=== PATIENT | female | born 1960 | race Caucasian/White ===

== ENCOUNTER 2019-02-18 15:58 | Inpatient (IN) ==
--- NOTE | 2019-02-18 16:41 | Emergency Department Note ---
ED Disposition Clinical Impression: Severe sepsis CAP (community acquired pneumonia) Qualifiers: Laterality: right Lung location: middle lobe of lung Qualified Code(s): J18.1 - Lobar pneumonia, unspecified organism Disposition: Admitted As Inpatient Condition on Discharge: Serious Referrals: Provider,Referral, [Referring] - - Critical Care Critical Care Time: No Attestation: On 02/18/19, the high probability of a clinically significant, sudden or life threatening deterioration of the following system(s) required my full and direct attention, intervention and personal management. The time I documented below is in addition to time spent performing reported procedures but includes the following listed in this critical care notation. Medical Decision Making - Patel Inquiry Pt receiving controlled substance: No Vital Signs: 02/18/19 15:50 02/18/19 16:15 02/18/19 16:40 Temperature 98.3 F Temperature Source Oral Pulse Rate 84 Pulse Rate [Right Radial] 127 H 79 Respiratory Rate 18 18 Blood Pressure [Right Arm] 145/79 H 137/99 H Blood Pressure Mean [Right Arm] 101 111 Blood Pressure Source [Right Arm] Automatic Cuff Blood Pressure Position [Right Arm] Sitting Sitting 02 Sat by Pulse Oximetry 97 96 Oxygen Delivery Method Nasal Cannula Room Air Oxygen Flow Rate (LPM) 02/18/19 16:50 02/18/19 17:08 02/18/19 17:30 Temperature Temperature Source Pulse Rate 86 Pulse Rate [Right Radial] 74 74 Respiratory Rate 18 18 Blood Pressure [Right Arm] 137/99 H 137/99 H Blood Pressure Mean [Right Arm] 111 111 Blood Pressure Source [Right Arm] Automatic Cuff Blood Pressure Position [Right Arm] Supine Supine 02 Sat by Pulse Oximetry 96 96 Oxygen Delivery Method Nasal Cannula Room Air Oxygen Flow Rate (LPM) 2 - Lab Data Lab Results 02/18/19 16:29: WBC 33.5 H*, RBC 5.61 H, Hgb 16.0, Hct 50.1 H, MCV 89.3, MCH 28. 6, MCHC 32.0, RDW 12.2, Plt Count 288, MPV 8.6, Neut % (Auto) 91.2 H, Lymph % (Auto) 4.4 L, [place] % (Auto) 3.8, Eos % (Auto) 0.3, Baso % (Auto) 0.2, Neut # (Auto) 30.6 H, Lymph # (Auto) 1.5, [place] # (Auto) 1.3 H, Eos # (Auto) 0.1, Baso # (Auto) 0.1, Total Counted 100, Neutrophils % (Manual) 77 H, Band Neutrophils % 1.0, Lymphocytes % (Manual) 9 L, Monocytes % (Manual) 9, Metamyelocytes % 4.0 H, Platelet Estimate Normal, RBC Morphology Normal 02/18/19 16:29: Sodium 139, Potassium 3.3 L, Chloride 96 L, Carbon Dioxide 36 H, Anion Gap 10.3, BUN 20 H, Creatinine 0.81, Estimated Creat Clear 93, Estimated GFR 73, Est GFR ( Amer) 88, Glucose 162 H, Calcium 9.5, Total Bilirubin 0.7, AST 13 L, ALT 7 L, Alkaline Phosphatase 81, Total Protein 7.7, Albumin 2.8 L, Globulin 4.9 H, Albumin/Globulin Ratio 0.6 L 02/18/19 16:29: Lactate 2.2 H 02/18/19 16:39: Amylase 6 L, Lipase 24 L 02/18/19 17:25: Urine Color Yellow, Urine Appearance Clear, Urine pH 5.5, Ur Specific [place] >= 1.030, Urine Protein 2+, Urine Glucose (UA) Negative, Urine Ketones 1+, Urine Blood 2+, Urine Nitrate Negative, Urine Bilirubin Negative, Urine Urobilinogen 1.0, Ur Leukocyte Esterase Negative, Urine RBC Occasional, Urine WBC 3-5, Ur Squamous Epith Cells 3-5, Urine Bacteria 1+ Result diagrams: 02/18/19 16:29 02/18/19 16:29 Orders (Tests/Meds): ED MEDICATIONS Generic Name Dose Route Start Last Admin Trade Name Freq PRN Reason Stop Dose Admin Levofloxacin/Dextrose 750 mg in 150 mls @ 100 mls/hr 02/18/19 17:30 02/18/19 17:34 Levofloxacin 750mg/150ml Premix IV 02/18/19 18:59 100 mls/hr Q24H ONE Administration Protocol Discontinued Medications Generic Name Dose Route Start Last Admin Trade Name Freq PRN Reason Stop Dose Admin Albuterol/Ipratropium 3 ml 02/18/19 16:40 02/18/19 16:41 Duoneb 3ml Neb IH 02/18/19 16:41 3 ml ONCE ONE Administration Ioversol 75 ml 02/18/19 18:11 02/18/19 18:12 Rad-Optiray 350 100ml Vial IV 02/18/19 18:12 75 ml ONCE ONE Administration Protocol Ondansetron HCl 4 mg 02/18/19 17:10 02/18/19 17:34 Zofran 4mg/2ml Vial IV 02/18/19 17:11 4 mg ONCE ONE Administration Sodium Chloride 1,000 ml 02/18/19 17:09 02/18/19 17:34 Sod Chlor 0.9% 1000ml Bag IV 02/18/19 17:10 1,000 ml BOLUS ONE Administration Sodium Chloride 10 ml 02/18/19 18:11 02/18/19 18:12 Rad-Saline Flush 10ml Syringe IV 02/18/19 18:12 10 ml ONCE ONE Administration ORDERS Category Date Time Status CT abdomen pelvis w con Stat Cat Scan 02/18/19 17:30 Taken XR chest portable Stat Exams 02/18/19 18:08 Taken Blood Culture Stat Micro 02/18/19 16:29 Received - Radiology Data #1 Image(s): Chest Image Reviewed: Yes I reviewed the patient's radiology image infiltrate RML - CT Data CT Scan: Abdomen, Pelvis Time Received: 18:[address] Reviewed: Yes: I have viewed the radiologist's interpretation Findings Narrative: CT scan interpreted by [facility] radiologist. Faxed report received and reviewed: Large areas of pneumonia in the right middle lobe and probably to a lesser extent the right lower lobe. Fatty infiltration of the liver. - Physician Consults Physician Consulted: Kota Time: 18:43 Reason -: Admission Comment/Response: Agrees to admit the patient to the hospital. We discussed the patient's clinical information, including history, exam, laboratory and radiology results and ED course. Per hospital procedure, I will write temporary bridge inpatient orders on the patient. Specific orders requested by the admitting physician: Change to Rocephin and Zithromax. Medical Decision Narrative: 6:18 PM: Discussed PCN allergy. Patient says she "passes out". She thinks she has had Keflex in the past and is pretty certain she has had Rocephin in the hospital. General Adult HPI - General Chief complaint: Nausea/Vomiting/Diarrhea Stated complaint: N/V Time Seen by Provider: 02/18/19 16:40 Mode of Arrival: EMS Limitations: No Limitations Description of Symptoms (Recalled from ER Triage Doc. by RN): PT BROUGHT IN VIA EMS WITH C/O N/V X2 DAYS. PT STATES THAT SHE IS UNABLE TO KEEP ANY ORAL INTAKE DOWN. PT DENIES DIARRHEA. PT DOES C/O RUQ PAIN BUT ADVISES THAT SHE HAS HAD HER GALLBLADDER REMOVED. - History of Present Illness HPI narrative: Arrives by ambulance. Complains of being ill for 4 days. She has intractable nausea and vomiting. Denies diarrhea. States she has had a fever of 101 degrees. Has pain in her right upper quadrant. She has had a prior cholecystectomy. She has a cough and has chronic shortness of breath due to COPD. She has rhinorrhea. She says that she has decreased urination, no dysuria. - Related Data Home Medications Medication Instructions Recorded Confirmed Furosemide [Furosemide 20mg Tab] 20 mg PO DAILY 02/18/19 02/18/19 Gabapentin [Gabapentin 400mg Cap] 400 mg PO DAILY 02/18/19 02/18/19 Ipratropium/Albuterol Sulfate 1 puff PO NEEDED PRN 02/18/19 02/18/19 [Combivent Respimat Inh] Tizanidine HCl 4 mg PO QID 02/18/19 02/18/19 Tizanidine HCl 4 mg PO QID 02/18/19 02/18/19 Allergies Allergy/AdvReac Type Severity Reaction Status Date / Time Penicillins Allergy Verified 02/18/19 15:59 [facility] History - Hepatitis A Screen Drug use history?: No High risk sexual behaviors?: No History of sexually transmitted infection?: No Currently employed?: No Childcare worker?: No Do you have indoor plumbing?: Yes Do you have electricity?: Yes Attestation statement:: This patient has been screened for Hepatitis A risk factors. I have reviewed the patient's past medical history: Yes Medical History: Denies:: Diabetes Mellitus Type 1, Diabetes Mellitus Type 2 - Social History Smoking Status: Former smoker Alcohol Intake: never Occupational Status: retired ROS Obtained: Yes All systems reviewed & no additional complaints - Constitutional Constitutional: Reports fever(s) - ENT Ears, Nose, Mouth, and Throat: Reports nasal discharge, Denies sore throat - Cardiovascular Cardiovascular: Denies chest pain - Respiratory Respiratory: Yes cough, Yes dyspnea - Gastrointestinal Gastrointestingal: Reports: abdominal pain, nausea, vomiting. Denies: diarrhea - Genitourinary Female Genitourinary: Reports difficulty voiding - Musculoskeletal Musculoskeletal: Reports back pain (low back pain) Physical Exam - General General appearance: alert, in no apparent distress - Head Head exam: atraumatic, normocephalic - Eye Eye exam: Present: normal appearance, EOMI - ENT ENT exam: Present: normal exam, normal oropharynx, mucous membranes moist - Neck Neck exam: Present: normal inspection, full ROM, trachea midline. Absent: tenderness, meningismus - Chest Chest inspection: Present: normal inspection, symmetric chest wall rise - Respiratory Respiratory exam: Present: other (decreased BS bilaterally). Absent: respiratory distress, prolonged expiratory phase - Cardiovascular Cardiovascular exam: Present: normal rhythm, tachycardia, normal heart sounds - Abdominal Exam Abdominal exam: Present: soft, tenderness, guarding, normal bowel sounds Abdominal tenderness: Present: RUQ - Extremities Exam Extremities exam: Present: normal inspection - Back Exam Back exam: Present: CVA tenderness (R) - Neurological Exam Neurological exam: Present: alert, oriented X3 - Psychiatric Psychiatric exam: Present: anxious - Skin Skin exam: Present: warm, dry. Absent: rash
[2019-02-18 16:43] LABS: Basophils # 0.1 K/mm3 (0-0.2); Basophils % 0.2 % (0.1-2.0); Eosinophils # 0.1 K/mm3 (0.0-0.4); Eosinophils % 0.3 % (0.1-12.0); Hematocrit 50.1 % (37.0-47.0); Lymphocytes # 1.5 K/mm3 (0.7-4.5); Lymphocytes % 4.4 % (10-50); Mean Corpuscular Volume 89.3 fl (81-99); Mean Platelet Volume 8.6 fl (7.4-10.4); Monocytes # 1.3 K/mm3 (0.1-1.0); Monocytes % 3.8 % (1.7-9.3); Neutrophils # 30.6 K/mm3 (1.8-7.8); Neutrophils % 91.2 % (37.0-80.0); Platelet Count 288 K/mm3 (142-424); Red Blood Count 5.61 M/mm3 (4.20-5.40); Red Cell Distribution Width 12.2 % (11.5-17.5); White Blood Count 33.5 K/mm3 (4.8-10.8)
[2019-02-18 16:58] LABS: Albumin Level 2.8 gm/dL (3.4-5.0); Albumin/Globulin Ratio 0.6 (1.1-1.8); Anion Gap 10.3 mEq/L (5-15); Bilirubin,Total 0.7 mg/dL (0.2-1.0); Calcium 9.5 mg/dL (8.5-10.1); Globulin 4.9 gm/dl (1.3-3.2); Total Protein,Serum 7.7 gm/dL (6.4-8.2)
[2019-02-18 17:10] LABS: Amylase 6 U/L (25-115)
[2019-02-18 17:29] LABS: Microscopic, Urine URINE MICROSCOPIC (MICROSCOPIC)
[2019-02-18 17:30] LABS: Appearance,Urine CLEAR (Clear); Blood, Urine 2+ (Negative); Color,Urine YELLOW (Yellow); Glucose,Urine (UA) Negative (Negative); Ketones,Urine 1+ (Negative); Leukocyte Esterase,Urine Negative (Negative); PH,Urine 5.5 (5.0-8.5); Protein,Urine 2+ (Negative); Specific Gravity, Urine >= 1.030 (1.005-1.030)
[2019-02-18 17:45] LABS: Lymphocytes % 9 % (10-50); Monocytes % 9 % (2-9); Neutrophils % 77 % (42-76); RBC Morphology Normal; Total Cells Counted 100
[2019-02-18 17:50] LABS: Bacteria,Urine 1+ /lpf; RBC,Urine Occasional #/hpf (0-3)
[2019-02-18 17:51] LABS: Bilirubin,Urine Negative (Negative)
[2019-02-18 21:31] LABS: Creatine Kinase 107 U/L (26-192)
[2019-02-19 07:11] LABS: Hematocrit 46.6 % (37.0-47.0); Lymphocytes # 1.4 K/mm3 (0.7-4.5); Lymphocytes % 5.9 % (10-50); Mean Corpuscular HGB Conc 30.3 g/dL (31.8-35.4); Mean Corpuscular Volume 91.8 fl (81-99); Monocytes # 0.9 K/mm3 (0.1-1.0); Neutrophils # 21.1 K/mm3 (1.8-7.8); Neutrophils % 90.1 % (37.0-80.0); Platelet Count 287 K/mm3 (142-424); Red Blood Count 5.07 M/mm3 (4.20-5.40); White Blood Count 23.4 K/mm3 (4.8-10.8)
[2019-02-19 07:19] LABS: Anion Gap 10.8 mEq/L (5-15); Calcium 9.3 mg/dL (8.5-10.1)
--- NOTE | 2019-02-19 07:32 | Pharmacy Consult Notes ---
[facility] Pharmacy VTE Monitoring - Patient Demographics Admission date: 02/18/19 Report Date: 02/19/19 Time: 07:32 Allergies/Adverse Reactions: Patient Allergies Penicillins Allergy (Verified 02/18/19 15:59) Height: 1.7 m Weight: 80.995 kg Patient Problems: Current Active Problems CAP (community acquired pneumonia) (Acute) Severe sepsis (Acute) - VTE Risk Labs: VTE Related Lab Results Hgb 16.0 g/dL (12.2-16.2) 02/18/19 16:29 Hct 46.6 % (37.0-47.0) 02/19/19 06:55 Plt Count 287 K/mm3 (142-424) 02/19/19 06:55 BUN 19 mg/dL (7-18) H 02/19/19 06:55 Creatinine 0.67 mg/dL (0.55-1.02) 02/19/19 06:55 Estimated Creat Clear 118 mL/min (50-200) 02/19/19 06:55 Was VTE Risk Assessment Performed: Yes VTE Score: 4 VTE Risk Level: Low Risk - Prophylaxis VTE Prophylaxis Ordered?: Yes Types of VTE Prophylaxis: TEDS Knee High Location of Applied Device: Bilateral Lower Extremeties - VTE Diagnosis Confirmed Treatment or plan recommended: Continue Current Treatment
[2019-02-19 07:34] LABS: Hemoglobin 14.1 g/dL (12.2-16.2)
--- NOTE | 2019-02-19 08:37 | History & Physical Report ---
*Admission Date: 02/18/19 <Fouzia Louis 02/19/19 08:45> *Chief complaint: vomiting, right sided abdominal pain <Fouzia Louis 02/19/19 08:45> *History of present illness: Ms. Aviles is a 58-year-old female patient of [facility] who has a history of oxygen dependent COPD, chronic back pain, and hypertension. She states she began feeling poorly on Sunday. She started vomiting and ran a fever with chills. She became more short of breath. She presented to the emergency room for evaluation and treatment and was found to have a right middle lobe and right lower lobe pneumonia. She was admitted and started on IV antibiotics, pain control, and antiemetics. She has not had any vomiting since admission but continues with some right upper abdominal and right mid back pain. She states her shortness of breath and cough are at baseline. <Fouzia Louis 02/19/19 08:45> [facility] History I have reviewed the patient's past medical history: Yes <Fouzia Louis 02/19/19 08:45> Medical History: Reports:: Chronic Obstructive Pulmonary Disease (COPD), Hypertension Denies:: Cancer, Diabetes Mellitus Type 1, Diabetes Mellitus Type 2, MRSA <Fouzia Louis 02/19/19 08:45> *Have you ever received a pneumonia vaccine?: No <Fouzia Louis 02/19/19 08:45> *Have you received a flu vaccine this season?: No <Fouzia Louis 02/19/19 08:45> Other Medical History: Reports: Other (chronic neck and back pain due to DJD/DDD) <Tim Escudero - 02/19/19 10:03> Reports: Other (chronic back pain) <Fouzia Louis 02/19/19 08:45> Laterality Cases: Bilateral: Tonsillectomy <Fouzia Louis 02/19/19 08:45> Other Surgeries: Yes: Cholecystectomy, Colonoscopy, Hysterectomy-Total, Tubal Ligation <Fouzia Louis 02/19/19 08:45> Amputation: No <Fouzia Louis 02/19/19 08:45> Fractures: Yes (Bilat pinky toes) <Fouzia Louis 02/19/19 08:45> - *Social History Educational Level: Completed GED/General Educational Development <Fouzia Louis 02/19/19 08:45> Smoking Status: Former smoker (states she quit smoking 2 months ago) <Tim Escudero 02/19/19 10:03> Current some day smoker <Fouzia Louis 02/19/19 08:45> Tobacco Type: cigarettes <Fouzia Louis 02/19/19 08:45> # Packs/Day (cigarettes): 3 <Fouzia Louis 02/19/19 08:45> #Yrs smoked (if former smoker): 44 <Fouzia Louis 02/19/19 08:45> Smoking End Date: 02/25/18 <Fouzia Louis 02/19/19 08:45> Alcohol Intake: never <Fouzia Louis 02/19/19 08:45> *Occupational Status:: disabled (due to chronic neck and back pain) <Tim Escudero 02/19/19 10:03> retired <Fouzia Louis 02/19/19 08:45> Housing: apartment <Fouzia Louis 02/19/19 08:45> Household Members: children <Fouzia Louis 02/19/19 08:45> *Travel in the last 8 weeks: None <Fouzia Louis 02/19/19 08:45> Family Hx:: Cancer (lung and pancreas) <Tim Escudero 02/19/19 10:03> Cancer <Fouzia Louis 02/19/19 08:45> Review of Systems - Constitutional Reports chills, Reports fever(s) <Fouzia Louis 02/19/19 08:45> - Eyes Denies blurry vision, Denies double vision <Fouzia Louis 02/19/19 08:45> - ENT Reports nasal congestion, Denies sore throat <Fouzia Louis 02/19/19 08:45> - *Cardiovascular Reports chest pain (right sided, pleuritic) <Tim Escudero 02/19/19 10:03> Reports chest pain (slight beginning yesterday), Reports leg swelling <Fouzia Louis 02/19/19 08:45> - *Respiratory Reports shortness of breath <Tim Escudero 02/19/19 10:03> Reports cough, Reports shortness of breath <Fouzia Louis 02/19/19 08:45> - *Gastrointestinal Reports abdominal pain <Tim Escudero 02/19/19 10:03> Reports abdominal pain (RUQ), Reports vomiting, Denies loose stools, Denies loose stools <Fouzia Louis 02/19/19 08:45> - *Genitourinary Denies difficulty urinating, Denies painful urination <Fouzia Louis 02/19/19 08:45> - *Musculoskeletal Reports joint pain, Reports back pain, Reports neck pain <Tim Escudero 02/19/19 10:03> Reports body aches, Denies joint pain <Fouzia Louis 02/19/19 08:45> - *Neurologic Reports headache(s), Reports weakness, Denies dizziness <Fouzia Louis 02/19/19 08:45> - Psychiatric Reports anxiety <Fouzia Louis 02/19/19 08:45> Meds Home Medications Medication Instructions Recorded Confirmed Type Furosemide [Furosemide 20mg Tab] 20 mg PO DAILY 02/18/19 02/18/19 History Gabapentin [Gabapentin 400mg Cap] 400 mg PO QID 02/18/19 02/19/19 History Ipratropium/Albuterol Sulfate 1 puff PO QID 02/18/19 02/19/19 History [Combivent Respimat Inh] Tizanidine HCl 4 - 8 mg PO QID 02/18/19 02/19/19 History Lisinopril [Lisinopril 10mg Tab] 10 mg PO DAILY 02/19/19 02/19/19 History Potassium Chloride [Micro-K 10mEq 10 meq PO DAILY 02/19/19 02/19/19 History cap] <Tim Escudero 02/19/19 10:03> Allergies Allergy/AdvReac Type Severity Reaction Status Date / Time Penicillins Allergy Verified 02/18/19 15:59 <Tim Escudero - 02/19/19 10:03> Exam Vital signs and Labs for Last 24 Hours: Temp Pulse Resp BP Pulse Ox 97.9 F 89 17 95/52 L 97 02/19/19 08:00 02/19/19 08:00 02/19/19 08:00 02/19/19 08:00 02/19/19 08:00 Laboratory Results - last 24 hr 02/18/19 16:29: WBC 33.5 H*, RBC 5.61 H, Hgb 16.0, Hct 50.1 H, MCV 89.3, MCH 28.6, MCHC 32.0, RDW 12.2, Plt Count 288, MPV 8.6, Neut % (Auto) 91.2 H, Lymph % (Auto) 4.4 L, [place] % (Auto) 3.8, Eos % (Auto) 0.3, Baso % (Auto) 0.2, Neut # (Auto) 30.6 H, Lymph # (Auto) 1.5, [place] # (Auto) 1.3 H, Eos # (Auto) 0.1, Baso # (Auto) 0.1, Total Counted 100, Neutrophils % (Manual) 77 H, Band Neutrophils % 1.0, Lymphocytes % (Manual) 9 L, Monocytes % (Manual) 9, Metamyelocytes % 4.0 H, Platelet Estimate Normal, RBC Morphology Normal 02/18/19 16:29: Sodium 139, Potassium 3.3 L, Chloride 96 L, Carbon Dioxide 36 H, Anion Gap 10.3, BUN 20 H, Creatinine 0.81, Estimated Creat Clear 93, Estimated GFR 73, Est GFR ( Amer) 88, Glucose 162 H, Calcium 9.5, Total Bilirubin 0.7, AST 13 L, ALT 7 L, Alkaline Phosphatase 81, Total Protein 7.7, Albumin 2.8 L, Globulin 4.9 H, Albumin/Globulin Ratio 0.6 L 02/18/19 16:29: Lactate 2.2 H 02/18/19 16:39: Amylase 6 L, Lipase 24 L 02/18/19 17:25: Urine Color Yellow, Urine Appearance Clear, Urine pH 5.5, Ur Specific Morris >= 1.030, Urine Protein 2+, Urine Glucose (UA) Negative, Urine Ketones 1+, Urine Blood 2+, Urine Nitrate Negative, Urine Bilirubin Negative, Urine Urobilinogen 1.0, Ur Leukocyte Esterase Negative, Urine RBC Occasional, Urine WBC 3-5, Ur Squamous Epith Cells 3-5, Urine Bacteria 1+ 02/18/19 20:49: Total Creatine Kinase 107, CK-MB (CK-2) 2.0, CK-MB (CK-2) Rel Index 1.9, Troponin I < 0.02 02/18/19 20:49: Lactate 1.8 02/19/19 06:55: WBC 23.4 H* D, RBC 5.07, Hgb 14.1 D, Hct 46.6, MCV 91.8, MCH 27.8, MCHC 30.3 L, RDW 13.0, Plt Count 287, MPV 9.0, Neut % (Auto) 90.1 H, Lymph % (Auto) 5.9 L, [place] % (Auto) 4.0, Eos % (Auto) 0.0 L, Baso % (Auto) 0.0 L, Neut # (Auto) 21.1 H, Lymph # (Auto) 1.4, [place] # (Auto) 0.9, Eos # (Auto) 0.0, Baso # (Auto) 0.0, Total Counted 100, Neutrophils % (Manual) 90 H, Band Neutrophils % 1.0, Lymphocytes % (Manual) 6 L, Monocytes % (Manual) 2, Metamyelocytes % 1.0, Platelet Estimate Normal, RBC Morphology Not Reportable, Hypochromasia 1+ 02/19/19 06:55: Sodium 139, Potassium 3.8, Chloride 99, Carbon Dioxide 33 H, Anion Gap 10.8, BUN 19 H, Creatinine 0.67, Estimated Creat Clear 118, Estimated GFR 91, Est GFR ( Amer) 110 D, Glucose 180 H, Calcium 9.3 <Tim Escudero - 02/19/19 10:03> Temp Pulse Resp BP Pulse Ox 97.7 F 68 20 104/50 L 91 L 02/19/19 04:00 02/19/19 05:57 02/19/19 04:00 02/19/19 04:00 02/19/19 05:57 Laboratory Results - last 24 hr 02/18/19 16:29: WBC 33.5 H*, RBC 5.61 H, Hgb 16.0, Hct 50.1 H, MCV 89.3, MCH 28.6, MCHC 32.0, RDW 12.2, Plt Count 288, MPV 8.6, Neut % (Auto) 91.2 H, Lymph % (Auto) 4.4 L, [place] % (Auto) 3.8, Eos % (Auto) 0.3, Baso % (Auto) 0.2, Neut # (Auto) 30.6 H, Lymph # (Auto) 1.5, [place] # (Auto) 1.3 H, Eos # (Auto) 0.1, Baso # (Auto) 0.1, Total Counted 100, Neutrophils % (Manual) 77 H, Band Neutrophils % 1.0, Lymphocytes % (Manual) 9 L, Monocytes % (Manual) 9, Metamyelocytes % 4.0 H, Platelet Estimate Normal, RBC Morphology Normal 02/18/19 16:29: Sodium 139, Potassium 3.3 L, Chloride 96 L, Carbon Dioxide 36 H, Anion Gap 10.3, BUN 20 H, Creatinine 0.81, Estimated Creat Clear 93, Estimated GFR 73, Est GFR ( Amer) 88, Glucose 162 H, Calcium 9.5, Total Bilirubin 0.7, AST 13 L, ALT 7 L, Alkaline Phosphatase 81, Total Protein 7.7, Albumin 2.8 L, Globulin 4.9 H, Albumin/Globulin Ratio 0.6 L 02/18/19 16:29: Lactate 2.2 H 02/18/19 16:39: Amylase 6 L, Lipase 24 L 02/18/19 17:25: Urine Color Yellow, Urine Appearance Clear, Urine pH 5.5, Ur Specific [place] >= 1.030, Urine Protein 2+, Urine Glucose (UA) Negative, Urine Ketones 1+, Urine Blood 2+, Urine Nitrate Negative, Urine Bilirubin Negative, Urine Urobilinogen 1.0, Ur Leukocyte Esterase Negative, Urine RBC Occasional, Urine WBC 3-5, Ur Squamous Epith Cells 3-5, Urine Bacteria 1+ 02/18/19 20:49: Total Creatine Kinase 107, CK-MB (CK-2) 2.0, CK-MB (CK-2) Rel Index 1.9, Troponin I < 0.02 02/18/19 20:49: Lactate 1.8 02/19/19 06:55: WBC 23.4 H* D, RBC 5.07, Hgb 14.1 D, Hct 46.6, MCV 91.8, MCH 27.8, MCHC 30.3 L, RDW 13.0, Plt Count 287, MPV 9.0, Neut % (Auto) 90.1 H, Lymph % (Auto) 5.9 L, [place] % (Auto) 4.0, Eos % (Auto) 0.0 L, Baso % (Auto) 0.0 L, Neut # (Auto) 21.1 H, Lymph # (Auto) 1.4, [place] # (Auto) 0.9, Eos # (Auto) 0.0, Baso # (Auto) 0.0 02/19/19 06:55: Sodium 139, Potassium 3.8, Chloride 99, Carbon Dioxide 33 H, Anion Gap 10.8, BUN 19 H, Creatinine 0.67, Estimated Creat Clear 118, Estimated GFR 91, Est GFR ( Amer) 110 D, Glucose 180 H, Calcium 9.3 <Fouzia Louis - 02/19/19 08:45> I & O for Last 24 hours: Intake & Output 02/16/19 02/17/19 02/18/19 02/19/19 11:59 11:59 11:59 11:59 Intake Total 719 / 719 Output Total 650 / 650 Balance 69 / 69 Weight 178 lb 9 oz <Tim Escudero - 02/19/19 10:03> Intake & Output 02/16/19 02/17/19 02/18/19 02/19/19 11:59 11:59 11:59 11:59 Intake Total 599 / 599 Output Total 650 / 650 Balance -51 / -51 Weight 178 lb 9 oz <Fouzia Louis - 02/19/19 08:45> - Constitutional no acute distress <Fouzia Louis 02/19/19 08:45> - *Routine HEENT Exam Head: Present: normocephalic <Fouzia Louis 02/19/19 08:45> Eye: Present: EOMI, PERRL <Fouzia Louis 02/19/19 08:45> ENT: Present: mucous membranes dry <Fouzia Louis 02/19/19 08:45> - *Routine Neck Exam Present: supple. Absent: lymphadenopathy <Fouzia Louis 02/19/19 08:45> - *Routine Respiratory Exam Present: wheezes (faint), diminished air movement <Fouzia Louis 02/19/19 08:45> - *Routine Cardiovascular Exam Present: RRR <Fouzia Louis 02/19/19 08:45> - *Routine Abdominal Exam Present: soft, normoactive bowel sounds. Absent: tenderness <Fouzia Louis 02/19/19 08:45> - *Routine Extremities Exam Present: edema (2+ bilaterally). Absent: cyanosis, clubbing <Fouzia Louis 02/19/19 08:45> - *Routine Skin Exam Present: warm. Absent: rash <Fouzia Louis 02/19/19 08:45> - *Routine Neurological Exam Present: alert, oriented X3 <Fouzia Louis 02/19/19 08:45> H&P: Result - Impressions CXR - Right lower lobe pneumonia Abd/pelvic CT 1. Right middle lobe and right lower lobe pneumonia 2. No acute abdominal or pelvic findings. <Fouzia Louis 02/19/19 08:45> Assessment and Plan (1) CAP (community acquired pneumonia) Current visit: Yes Status: Acute Qualifiers: Laterality: right Lung location: middle lobe of lung Qualified Code(s): J18.1 - Lobar pneumonia, unspecified organism Category: Medical Code(s): J18.9 - Pneumonia, unspecified organism (2) Severe sepsis Current visit: Yes Status: Acute Category: Medical Code(s): A41.9 - Sepsis, unspecified organism; R65.20 - Severe sepsis without septic shock (3) Leukocytosis Current visit: Yes Status: Acute Category: Medical Code(s): D72.829 - Elevated white blood cell count, un specified (4) Hypokalemia Current visit: Yes Status: Acute Category: Medical Code(s): E87.6 - Hypokalemia (5) Renal insufficiency Current visit: Yes Status: Acute Category: Medical Code(s): N28.9 - Disorder of kidney and ureter, unspecified (6) Hypertension Current visit: Yes Status: Chronic Category: Medical Code(s): I10 - Essential (primary) hypertension (7) COPD (chronic obstructive pulmonary disease) Current visit: Yes Status: Chronic Category: Medical Code(s): J44.9 - Chronic obstructive pulmonary disease, unspecified <Fouzia Louis - 02/19/19 08:34> (1) CAP (community acquired pneumonia) Current visit: Yes Status: Acute Qualifiers: Laterality: right Lung location: middle lobe of lung Qualified Code(s): J18.1 - Lobar pneumonia, unspecified organism Category: Medical Code(s): J18.9 - Pneumonia, unspecified organism (2) Severe sepsis Current visit: Yes Status: Acute Category: Medical Code(s): A41.9 - Sepsis, unspecified organism; R65.20 - Severe sepsis without septic shock (3) Leukocytosis Current visit: Yes Status: Acute Category: Medical Code(s): D72.829 - Elevated white blood cell count, unspecified (4) Hypokalemia Current visit: Yes Status: Acute Category: Medical Code(s): E87.6 - Hypokalemia (5) Renal insufficiency Current visit: Yes Status: Acute Category: Medical Code(s): N28.9 - Disorder of kidney and ureter, unspecified (6) Hypertension Current visit: Yes Status: Chronic Category: Medical Code(s): I10 - Essential (primary) hypertension (7) COPD (chronic obstructive pulmonary disease) Current visit: Yes Status: Chronic Category: Medical Code(s): J44.9 - Chronic obstructive pulmonary disease, unspecified (8) Hyperglycemia Current visit: Yes Status: Acute Category: Medical Code(s): R73.9 - Hyperglycemia, unspecified (9) Chronic neck pain Current visit: Yes Status: Acute Category: Medical Code(s): M54.2 - Cervicalgia; G89.29 - Other chronic pain <Tim Escudero Kai - 02/19/19 10:03> - Assessment and plan all Dx Assessment and Plan for all problems:: Patient seen and examined this a.m. She rested fairly well through the night. She is subjectively less short of breath this morning. She has a nonproductive cough. She complains of some right-sided pleuritic type chest pain. She has had no further vomiting but has no appetite this morning. Her white blood cell count has decreased some. Blood sugar is elevated which may be due to the steroids but will check an A1c. She has no history of diabetes. Blood pressure has been low this morning. We will give her another bolus of IV fluids. <Tim Escudero - 02/19/19 10:03> Patient has been started on antibiotics, nebs, and steroids. She has been continued on oxygen. Her potassium has normalized and her renal function has improved. Will await blood and sputum cultures. <Fouzia Louis - 02/19/19 08:45>
[2019-02-19 09:28] LABS: Hypochromasia 1+; Lymphocytes % 6 % (10-50); Monocytes % 2 % (2-9); Neutrophils % 90 % (42-76); Total Cells Counted 100
--- NOTE | 2019-02-19 21:05 | Cardiology Report ---
APPROVED REPORT EXAM: Comprehensive 2D, Doppler, and color-flow Echocardiogram Office Auditor: Vicki Horne CRT Ht: 5 ft 7 in Wt: 178lbs BSA: 1.92 BP: 117/70 mmHg Indications: Chest Pain, COPD, Shortness of Breath, Peripheral Edema, Hyperlipidemia, HOME O2, SEPSIS 2D Dimensions LVOT 1.90 cm (M/F) 1.5-2.5 M-Mode Dimensions RVDd 2.40 cm (0.9-2.6)LA Diam 3.40 cm (1.9-4.0) LVDd 5.30 cm (3.5-5.7)Ao Diam 3.50 cm (2.0-3.7) LVDs 2.90 cm (3.5-5.7)AV Cusp 2.10 cm (1.5-2.6) IVSd 1.50 cm (0.6-1.1)PWd 0.80 cm (0.6-1.1) EF (Teich) 76.10% FS 45.30% EDV (Teich) 135.00 mLESV (Teich) 32.20 mL LV Diastology E/A Ratio 0.90MED E' 8.19 (< 7 cm/sec) E'/MED E' Ratio11.50 (>14)LAT E' 11.70 (<10 cm/sec) E/LAT E' Ratio 8.10 (>14) Aortic Valve AoV Peak Kwasi. 169.00 (50-130 cm/s)AO Peak GR. 11.00 mmHg Mitral Valve MV E Max Kwasi. 94.30 (40-130 cm/s)MV A Velocity 106.00 (40-130 cm/s) E/A Ratio 0.90 Pulmonary Valve PA Accel Time 169.00 (>120 msec) Tricuspid Valve TR P. Pjagwrsp639.00 cm/sRAP Estimate 10.00 mmHg RVSP 43.00 mmHg Left Ventricle Left atrium is mildly enlarged, left ventricle is normal size, mild concentric left ventricular hypertrophy, visually estimated ejection fraction 55% with no regional wall motion abnormality. Grade 1 diastolic dysfunction seen without tissue Doppler evidence of raise left atrial pressure. Right Ventricle Right atrium and right ventricle mildly enlarged with normal contractility. Aortic Valve Aortic valve is minimally thickened and calcified, leaflet continue to display good mobility, there is no aortic stenosis or aortic insufficiency. Mitral Valve Mitral valve leaflets are minimally thickened, there is no mitral stenosis, there is mild mitral regurgitation. Tricuspid Valve Tricuspid valve is grossly normal, there is mild tricuspid regurgitation, tricuspid regurgitation jet velocity is inadequate for cannulation of the right ventricular systolic pressure. Pulmonic Valve Pulmonic valve is poorly visualized. Great Vessels Aortic root is normal size. Pericardium No significant pericardial effusion noted. Conclusion 1. Mild biatrial enlargement, normal left ventricular size, mild concentric left ventricular hypertrophy, visually estimated ejection fraction 55% with no regional wall motion abnormality, grade 1 diastolic dysfunction seen without tissue Doppler evidence of raise left atrial pressure. 2. Mildly enlarged right ventricle with normal contractility. 3. Mild mitral and tricuspid regurgitation, tricuspid regurgitation jet velocity is inadequate for calculation of the right ventricular systolic pressure. 4. No significant pericardial effusion noted. Electronically signed by : Shahid Rebolledo, 02/19/2019 21:05:20
--- NOTE | 2019-02-20 08:39 | Progress Note ---
<Fouzia Louis - Last Filed: 02/20/19 08:37> Internal Medicine - PN: Subj *Date: 02/20/19 *Time: 08:37 Interval history: Patient states in the middle the night she rolled over on her right side and felt like something tore in her chest wall. She states she has had significant pain ever since that time. Her nurses states she is been moaning all night. She states it hurts to take a deep breath and her cough seems to be worse. She is requesting something else for pain. Exam Vital signs and Labs for Last 24 Hours: Temp Pulse Resp BP Pulse Ox 98.2 F 85 21 110/66 98 02/20/19 04:00 02/20/19 06:20 02/20/19 08:21 02/20/19 04:00 02/20/19 06:20 Laboratory Results - last 24 hr 02/19/19 06:55: Total Counted 100, Neutrophils % (Manual) 90 H, Band Neutrophils % 1.0, Lymphocytes % (Manual) 6 L, Monocytes % (Manual) 2, Metamyelocytes % 1.0, Platelet Estimate Normal, RBC Morphology Not Reportable, Hypochromasia 1+ 02/19/19 06:55: Hemoglobin A1c 6.5 I & O for Last 24 hours: Intake & Output 02/17/19 02/18/19 02/19/19 02/20/19 11:59 11:59 11:59 11:59 Intake Total 719 / 719 240 / 240 Output Total 650 / 650 600 / 600 Balance 69 / 69 -360 / -360 Weight 178 lb 9 oz 185 lb 6 oz - Constitutional no acute distress - Routine Chest/Breast/Axilla Exam Chest wall: Present: tenderness (Right lower costal cartilage) - *Routine Respiratory Exam Present: decreased breath sounds - *Routine Cardiovascular Exam Present: RRR - *Routine Abdominal Exam Present: soft, normoactive bowel sounds. Absent: tenderness - *Routine Extremities Exam Absent: cyanosis, clubbing, edema - *Routine Skin Exam Present: warm. Absent: rash - *Routine Neurological Exam Present: alert, oriented X3 Assessment and Plan (1) CAP (community acquired pneumonia) Current visit: Yes Status: Acute Qualifiers: Laterality: right Lung location: middle lobe of lung Qualified Code(s): J18.1 - Lobar pneumonia, unspecified organism Category: Medical Code(s): J18.9 - Pneumonia, unspecified organism (2) Severe sepsis Current visit: Yes Status: Acute Category: Medical Code(s): A41.9 - Sepsis, unspecified organism; R65.20 - Severe sepsis without septic shock (3) Leukocytosis Current visit: Yes Status: Acute Category: Medical Code(s): D72.829 - Elevated white blood cell count, unspecified (4) Hypokalemia Current visit: Yes Status: Acute Category: Medical Code(s): E87.6 - Hypokalemia (5) Renal insufficiency Current visit: Yes Status: Acute Category: Medical Code(s): N28.9 - Disorder of kidney and ureter, unspecified (6) Hypertension Current visit: Yes Status: Chronic Category: Medical Code(s): I10 - Essential (primary) hypertension (7) COPD (chronic obstructive pulmonary disease) Current visit: Yes Status: Chronic Category: Medical Code(s): J44.9 - Chronic obstructive pulmonary disease, unspecified (8) Hyperglycemia Current visit: Yes Status: Acute Category: Medical Code(s): R73.9 - Hyperglycemia, unspecified (9) Chronic neck pain Current visit: Yes Status: Acute Category: Medical Code(s): M54.2 - Cervicalgia; G89.29 - Other chronic pain - Assessment and plan all Dx Assessment and Plan for all problems:: We will continue IV antibiotics. We will get a repeat chest x-ray today and will start on some Toradol for her pain. <Tim Escudero - Last Filed: 02/20/19 10:04> Internal Medicine - PN: Subj *Date: 02/20/19 *Time: 10:03 Exam Vital signs and Labs for Last 24 Hours: Temp Pulse Resp BP Pulse Ox 98.2 F 108 H 21 117/59 L 96 02/20/19 08:00 02/20/19 08:00 02/20/19 08:21 02/20/19 08:00 02/20/19 08:00 Laboratory Results - last 24 hr 02/19/19 06:55: Hemoglobin A1c 6.5 I & O for Last 24 hours: Intake & Output 02/17/19 02/18/19 02/19/19 02/20/19 11:59 11:59 11:59 11:59 Intake Total 719 / 719 360 / 360 Output Total 650 / 650 1200 / 1200 Balance 69 / 69 -840 / -840 Weight 178 lb 9 oz 185 lb 6 oz Assessment and Plan (1) CAP (community acquired pneumonia) Current visit: Yes Status: Acute Qualifiers: Laterality: right Lung location: middle lobe of lung Qualified Code(s): J18.1 - Lobar pneumonia, unspecified organism Category: Medical Code(s): J18.9 - Pneumonia, unspecified organism (2) Severe sepsis Current visit: Yes Status: Acute Category: Medical Code(s): A41.9 - Sepsis, unspecified organism; R65.20 - Severe sepsis without septic shock (3) Leukocytosis Current visit: Yes Status: Acute Category: Medical Code(s): D72.829 - Elevated white blood cell count, unspecified (4) Hypokalemia Current visit: Yes Status: Acute Category: Medical Code(s): E87.6 - Hypokalemia (5) Renal insufficiency Current visit: Yes Status: Acute Category: Medical Code(s): N28.9 - Disorder of kidney and ureter, unspecified (6) Hypertension Current visit: Yes Status: Chronic Category: Medical Code(s): I10 - Essential (primary) hypertension (7) COPD (chronic obstructive pulmonary disease) Current visit: Yes Status: Chronic Category: Medical Code(s): J44.9 - Chronic obstructive pulmonary disease, unspecified (8) Hyperglycemia Current visit: Yes Status: Acute Category: Medical Code(s): R73.9 - Hyperglycemia, unspecified (9) Chronic neck pain Current visit: Yes Status: Acute Category: Medical Code(s): M54.2 - Cervicalgia; G89.29 - Other chronic pain - Assessment and plan all Dx Assessment and Plan for all problems:: Patient seen and examined this AM. Concur with above. Awaiting sputum and blood cultures. Encourage OOB activity.
[2019-02-20 10:11] LABS: Basophils % 0.1 % (0.1-2.0); Eosinophils % 0.1 % (0.1-12.0); Hematocrit 45.5 % (37.0-47.0); Hemoglobin 13.7 g/dL (12.2-16.2); Lymphocytes # 1.1 K/mm3 (0.7-4.5); Lymphocytes % 4.6 % (10-50); Mean Corpuscular HGB Conc 30.1 g/dL (31.8-35.4); Mean Corpuscular Volume 90.1 fl (81-99); Mean Platelet Volume 8.5 fl (7.4-10.4); Monocytes % 4.2 % (1.7-9.3); Neutrophils # 21.6 K/mm3 (1.8-7.8); Platelet Count 382 K/mm3 (142-424); Red Blood Count 5.05 M/mm3 (4.20-5.40); Red Cell Distribution Width 12.9 % (11.5-17.5); White Blood Count 23.8 K/mm3 (4.8-10.8)
[2019-02-20 12:34] LABS: Hypochromasia 1+; Lymphocytes % 8 % (10-50); Monocytes % 2 % (2-9); Neutrophils % 90 % (42-76); Total Cells Counted 100
[2019-02-21 07:21] LABS: Basophils % 0.1 % (0.1-2.0); Eosinophils % 0.2 % (0.1-12.0); Hematocrit 42.1 % (37.0-47.0); Hemoglobin 12.5 g/dL (12.2-16.2); Lymphocytes # 1.2 K/mm3 (0.7-4.5); Mean Corpuscular HGB Conc 29.6 g/dL (31.8-35.4); Mean Corpuscular Volume 91.7 fl (81-99); Mean Platelet Volume 8.4 fl (7.4-10.4); Monocytes # 0.7 K/mm3 (0.1-1.0); Monocytes % 5.3 % (1.7-9.3); Neutrophils # 11.5 K/mm3 (1.8-7.8); Neutrophils % 85.4 % (37.0-80.0); Platelet Count 353 K/mm3 (142-424); Red Blood Count 4.59 M/mm3 (4.20-5.40); Red Cell Distribution Width 13.1 % (11.5-17.5); White Blood Count 13.4 K/mm3 (4.8-10.8)
[2019-02-21 07:42] LABS: Albumin Level 2.2 gm/dL (3.4-5.0); Anion Gap 6.7 mEq/L (5-15); Bilirubin,Total 0.2 mg/dL (0.2-1.0); Calcium 8.7 mg/dL (8.5-10.1); Total Protein,Serum 6.2 gm/dL (6.4-8.2)
[2019-02-21 07:43] LABS: Albumin/Globulin Ratio 0.6 (1.1-1.8)
--- NOTE | 2019-02-21 08:57 | Progress Note ---
<Bridgette Alvarado - Last Filed: 02/21/19 08:53> Internal Medicine - PN: Subj *Date: 02/21/19 *Time: 07:45 Interval history: The patient is resting quietly in bed, arouses easily to voice for exam. She has been up to the [facility] and remains SOB with any exertion. She ate well this morning and rested well overnight despite continued chest discomfort. She has NPC. Exam Vital signs and Labs for Last 24 Hours: Temp Pulse Resp BP Pulse Ox 97.9 F 104 H 20 128/61 97 02/21/19 08:00 02/21/19 08:00 02/21/19 08:00 02/21/19 08:00 02/21/19 08:00 Laboratory Results - last 24 hr 02/20/19 09:40: WBC 23.8 H*, RBC 5.05, Hgb 13.7, Hct 45.5, MCV 90.1, MCH 27.2, MCHC 30.1 L, RDW 12.9, Plt Count 382 D, MPV 8.5, Neut % (Auto) 91.0 H, Lymph % (Auto) 4.6 L, Cuming % (Auto) 4.2, Eos % (Auto) 0.1, Baso % (Auto) 0.1, Neut # (Auto) 21.6 H, Lymph # (Auto) 1.1, Cuming # (Auto) 1.0, Eos # (Auto) 0.0, Baso # (Auto) 0.0, Total Counted 100, Neutrophils % (Manual) 90 H, Lymphocytes % (Manual) 8 L, Monocytes % (Manual) 2, Platelet Estimate Normal, Hypochromasia 1+ 02/21/19 06:05: WBC 13.4 H D, RBC 4.59, Hgb 12.5, Hct 42.1, MCV 91.7, MCH 27.2, MCHC 29.6 L, RDW 13.1, Plt Count 353, MPV 8.4, Neut % (Auto) 85.4 H, Lymph % (Auto) 9.0 L, Cuming % (Auto) 5.3, Eos % (Auto) 0.2, Baso % (Auto) 0.1, Neut # (Auto) 11.5 H, Lymph # (Auto) 1.2, Cuming # (Auto) 0.7, Eos # (Auto) 0.0, Baso # (Auto) 0.0 02/21/19 06:05: Sodium 142, Potassium 3.7, Chloride 104, Carbon Dioxide 35 H, Anion Gap 6.7, BUN 12 D, Creatinine 0.52 L D, Estimated Creat Clear 165, Estimated GFR 122, Est GFR ( Amer) 147 D, Glucose 217 H, Calcium 8.7, Total Bilirubin 0.2, AST 4 L D, ALT 11 L D, Alkaline Phosphatase 59, Total P rotein 6.2 L, Albumin 2.2 L, Globulin 4.0 H, Albumin/Globulin Ratio 0.6 L I & O for Last 24 hours: Intake & Output 02/18/19 02/19/19 02/20/19 02/21/19 11:59 11:59 11:59 11:59 Intake Total 719 / 719 360 / 360 2560 / 2560 Output Total 650 / 650 1200 / 1200 400 / 400 Balance 69 / 69 -840 / -840 2160 / 2160 Weight 178 lb 9 oz 185 lb 6 oz 193 lb 8 oz Microbiology Reports for the Last 24 Hours: Microbiology 02/18/19 16:29 Blood Blood Culture - Preliminary NO GROWTH AFTER 48 HOURS 02/18/19 16:29 Blood Blood Culture - Preliminary NO GROWTH AFTER 48 HOURS Radiology Reports for the Last 24 Hours: 02/20/19 CXR: IMPRESSION: Pneumonia in the right middle and right lower lobe not significantly changed with increasing consolidation in the left lower lobe and small left pleural effusion. - Constitutional no acute distress Comments: mildly dyspneic with conversation - *Routine HEENT Exam Head: Present: normocephalic ENT: Present: mucous membranes moist - *Routine Respiratory Exam Comments: diminished breath sounds throughout with few LLL rales, frequent dry cough - *Routine Cardiovascular Exam Present: RRR - *Routine Abdominal Exam Present: soft, normoactive bowel sounds. Absent: tenderness, distended, guarding, firm, rigid, organomegaly, mass - *Routine Extremities Exam Comments: 1+ BLE edema - *Routine Neurological Exam Present: alert, oriented X3, moving all extremities, normal speech Assessment and Plan (1) CAP (community acquired pneumonia) Current visit: Yes Status: Acute Qualifiers: Laterality: right Lung location: middle lobe of lung Qualified Code(s): J18.1 - Lobar pneumonia, unspecified organism Category: Medical Code(s): J18.9 - Pneumonia, unspecified organism (2) Severe sepsis Current visit: Yes Status: Acute Category: Medical Code(s): A41.9 - Sepsis, unspecified organism; R65.20 - Severe sepsis without septic shock (3) Leukocytosis Current visit: Yes Status: Acute Category: Medical Code(s): D72.829 - Elevated white blood cell count, unspecified (4) Hypokalemia Current visit: Yes Status: Acute Category: Medical Code(s): E87.6 - Hypokalemia (5) Renal insufficiency Current visit: Yes Status: Acute Category: Medical Code(s): N28.9 - Disorder of kidney and ureter, unspecified (6) Hypertension Current visit: Yes Status: Chronic Category: Medical Code(s): I10 - Essential (primary) hypertension (7) COPD (chronic obstructive pulmonary disease) Current visit: Yes Status: Chronic Category: Medical Code(s): J44.9 - Chronic obstructive pulmonary disease, unspecified (8) Hyperglycemia Current visit: Yes Status: Acute Category: Medical Code(s): R73.9 - Hyperglycemia, unspecified (9) Chronic neck pain Current visit: Yes Status: Acute Category: Medical Code(s): M54.2 - Cervicalgia; G89.29 - Other chronic pain - Assessment and plan all Dx Assessment and Plan for all problems:: WBC has improved. CXR shows stable right lung changes with increasing consolidation of LLL. Preliminary blood cultures showed no growth at [address] Escudero. <Tim Escudero - Last Filed: 02/21/19 12:39> Internal Medicine - PN: Subj *Date: 02/21/19 *Time: 12:37 Exam Vital signs and Labs for Last 24 Hours: Temp Pulse Resp BP Pulse Ox 98.7 F 105 H 20 137/84 93 L 02/21/19 12:00 02/21/19 12:00 02/21/19 12:00 02/21/19 12:00 02/21/19 12:00 Laboratory Results - last 24 hr 02/21/19 06:05: WBC 13.4 H D, RBC 4.59, Hgb 12.5, Hct 42.1, MCV 91.7, MCH 27.2, MCHC 29.6 L, RDW 13.1, Plt Count 353, MPV 8.4, Neut % (Auto) 85.4 H, Lymph % (Auto) 9.0 L, Cuming % (Auto) 5.3, Eos % (Auto) 0.2, Baso % (Auto) 0.1, Neut # (Auto) 11.5 H, Lymph # (Auto) 1.2, Cuming # (Auto) 0.7, Eos # (Auto) 0.0, Baso # (Auto) 0.0, Total Counted 100, Neutrophils % (Manual) 84 H, Lymphocytes % (Manual) 12, Monocytes % (Manual) 4, Platelet Estimate Normal, RBC Morphology Normal, ESR 30 02/21/19 06:05: Sodium 142, Potassium 3.7, Chloride 104, Carbon Dioxide 35 H, Anion Gap 6.7, BUN 12 D, Creatinine 0.52 L D, Estimated Creat Clear 165, Estimated GFR 122, Est GFR ( Amer) 147 D, Glucose 217 H, Calcium 8.7, Total Bilirubin 0.2, AST 4 L D, ALT 11 L D, Alkaline Phosphatase 59, Total Protein 6.2 L, Albumin 2.2 L, Globulin 4.0 H, Albumin/Globulin Ratio 0.6 L I & O for Last 24 hours: Intake & Output 02/19/19 02/20/19 02/21/19 02/22/19 11:59 11:59 11:59 11:59 Intake Total 719 / 719 360 / 360 2560 / 2560 Output Total 650 / 650 1200 / 1200 400 / 400 Balance 69 / 69 -840 / -840 2160 / 2160 Weight 178 lb 9 oz 185 lb 6 oz 193 lb 8 oz Microbiology Reports for the Last 24 Hours: Microbiology 02/18/19 16:29 Blood Blood Culture - Preliminary NO GROWTH AFTER 48 HOURS 02/18/19 16:29 Blood Blood Culture - Preliminary NO GROWTH AFTER 48 HOURS Assessment and Plan (1) CAP (community acquired pneumonia) Current visit: Yes Status: Acute Qualifiers: Laterality: right Lung location: middle lobe of lung Qualified Code(s): J18.1 - Lobar pneumonia, unspecified organism Category: Medical Code(s): J18.9 - Pneumonia, unspecified organism (2) Severe sepsis Current visit: Yes Status: Acute Category: Medical Code(s): A41.9 - Sepsis, unspecified organism; R65.20 - Severe sepsis without septic shock (3) Leukocytosis Current visit: Yes Status: Acute Category: Medical Code(s): D72.829 - Elevated white blood cell count, unspecified (4) Hypokalemia Current visit: Yes Status: Acute Category: Medical Code(s): E87.6 - Hypokalemia (5) Renal insufficiency Current visit: Yes Status: Acute Category: Medical Code(s): N28.9 - Disorder of kidney and ureter, unspecified (6) Hypertension Current visit: Yes Status: Chronic Category: Medical Code(s): I10 - Essential (primary) hypertension (7) COPD (chronic obstructive pulmonary disease) Current visit: Yes Status: Chronic Category: Medical Code(s): J44.9 - Chronic obstructive pulmonary disease, unspecified (8) Hyperglycemia Current visit: Yes Status: Acute Category: Medical Code(s): R73.9 - Hyp erglycemia, unspecified (9) Chronic neck pain Current visit: Yes Status: Acute Category: Medical Code(s): M54.2 - Cervicalgia; G89.29 - Other chronic pain - Assessment and plan all Dx Assessment and Plan for all problems:: Patient seen and examined this morning. At the time of my exam she is sitting on the edge of the bed looks and feels a little better. She rested much better last night with less pleuritic pain on the right side. Repeat chest x-ray showed additional infiltrate in the left lower lobe. Her white count has markedly improved. She has still not been able to produce a sputum for culture. She is complaining of constipation. We will add Dulcolax and MiraLAX. Encourage out of bed activity. Discontinue IV fluids.
--- NOTE | 2019-02-21 09:47 | Electrocardiograph Report ---
APPROVED REPORT Exam: Resting ECG HR:127 bpm ECG Measurements Heart Rate 127 AXES CA 152 P 84 QRSd 100 QRS 99 QT 308 T53 QTc 447 <Conclusion> Sinus tachycardia Rightward axis Pulmonary disease pattern Abnormal ECG Electronically signed by : Case Barrios, 02/21/2019 09:46:58
[2019-02-21 11:24] LABS: Lymphocytes % 12 % (10-50); Monocytes % 4 % (2-9); Neutrophils % 84 % (42-76); Total Cells Counted 100
[2019-02-21 11:25] LABS: RBC Morphology Normal
[2019-02-21 11:26] LABS: Erythrocyte Sedimentation Rate 30 mm/hr (0-30)
--- NOTE | 2019-02-22 08:59 | Progress Note ---
Internal Medicine - PN: Subj *Date: 02/22/19 *Time: 08:57 Interval history: She slept fairly well. She still has some right pleuritic chest pain that is relieved with the Toradol. Appetite is improving. Nonproductive cough. She has still not had a bowel movement. She had some cramping yesterday. Exam Vital signs and Labs for Last 24 Hours: Temp Pulse Resp BP Pulse Ox 98.9 F 94 H 18 139/73 95 02/22/19 07:42 02/22/19 07:42 02/22/19 07:42 02/22/19 07:42 02/22/19 07:42 Laboratory Results - last 24 hr 02/21/19 06:05: Total Counted 100, Neutrophils % (Manual) 84 H, Lymphocytes % (Manual) 12, Monocytes % (Manual) 4, Platelet Estimate Normal, RBC Morphology Normal, ESR 30 I & O for Last 24 hours: Intake & Output 02/19/19 02/20/19 02/21/19 02/22/19 11:59 11:59 11:59 11:59 Intake Total 719 / 719 360 / 360 2560 / 2560 720 / 720 Output Total 650 / 650 1200 / 1200 400 / 400 800 / 800 Balance 69 / 69 -840 / -840 2160 / 2160 -80 / -80 Weight 178 lb 9 oz 185 lb 6 oz 193 lb 8 oz 193 lb 7.995 oz Narrative: She is sitting on the side of the bed and appears in no distress. Color is good. Chest reveals diminished breath sounds in the bases bilaterally. No wheezes. Heart is regular. Extremities no edema. Assessment and Plan (1) CAP (community acquired pneumonia) Current visit: Yes Status: Acute Qualifiers: Laterality: right Lung location: middle lobe of lung Qualified Code(s): J18.1 - Lobar pneumonia, unspecified organism Category: Medical Code(s): J18.9 - Pneumonia, unspecified organism (2) Severe sepsis Current visit: Yes Status: Acute Category: Medical Code(s): A41.9 - Sepsis, unspecified organism; R65.20 - Severe sepsis without septic shock (3) Leukocytosis Current visit: Yes Status: Acute Category: Medical Code(s): D72.829 - Elevated white blood cell count, unspecified (4) Hypokalemia Current visit: Yes Status: Acute Category: Medical Code(s): E87.6 - Hypokalemia (5) Renal insufficiency Current visit: Yes Status: Acute Category: Medical Code(s): N28.9 - Disorder of kidney and ureter, unspecified (6) Hypertension Current visit: Yes Status: Chronic Category: Medical Code(s): I10 - Essential (primary) hypertension (7) COPD (chronic obstructive pulmonary disease) Current visit: Yes Status: Chronic Category: Medical Code(s): J44.9 - Chronic obstructive pulmonary disease, unspecified (8) Hyperglycemia Current visit: Yes Status: Acute Category: Medical Code(s): R73.9 - Hyperglycemia, unspecified (9) Chronic neck pain Current visit: Yes Status: Acute Category: Medical Code(s): M54.2 - Cervicalgia; G89.29 - Other chronic pain - Assessment and plan all Dx Assessment and Plan for all problems:: Continue per orders. We will try Dulcolax suppository today. Encouraged increase activity.
--- NOTE | 2019-02-22 12:05 | Progress Note ---
Internal Medicine - PN: Subj *Date: 02/22/19 *Time: 12:05 Exam Vital signs and Labs for Last 24 Hours: Temp Pulse Resp BP Pulse Ox 98.2 F 94 H 19 141/75 H 94 L 02/22/19 11:18 02/22/19 11:18 02/22/19 11:18 02/22/19 11:18 02/22/19 11:18 I & O for Last 24 hours: Intake & Output 02/19/19 02/20/19 02/21/19 02/22/19 23:59 23:59 23:59 23:59 Intake Total 959 / 959 1801 / 1801 1239 / 1239 360 / 360 Output Total 1000 / 1000 600 / 800 400 / 400 800 / 800 Balance -41 / -41 1201 / 1001 839 / 839 -440 / -440 Weight 80.995 kg 84.085 kg 87.77 kg 87.77 kg Assessment and Plan (1) CAP (community acquired pneumonia) Current visit: Yes Status: Acute Qualifiers: Laterality: right Lung location: middle lobe of lung Qualified Code(s): J18.1 - Lobar pneumonia, unspecified organism Category: Medical Code(s): J18.9 - Pneumonia, unspecified organism (2) Severe sepsis Current visit: Yes Status: Acute Category: Medical Code(s): A41.9 - Sepsis, unspecified organism; R65.20 - Severe sepsis without septic shock (3) Leukocytosis Current visit: Yes Status: Acute Category: Medical Code(s): D72.829 - Elevated white blood cell count, unspecified (4) Hypokalemia Current visit: Yes Status: Acute Category: Medical Code(s): E87.6 - Hypokalemia (5) Renal insufficiency Current visit: Yes Status: Acute Category: Medical Code(s): N28.9 - Disorder of kidney and ureter, unspecified (6) Hypertension Current visit: Yes Status: Chronic Category: Medical Code(s): I10 - Essential (primary) hypertension (7) COPD (chronic obstructive pulmonary disease) Current visit: Yes Status: Chronic Category: Medical Code(s): J44.9 - Chronic obstructive pulmonary disease, unspecified (8) Hyperglycemia Current visit: Yes Status: Acute Category: Medical Code(s): R73.9 - Hyperglycemia, unspecified (9) Chronic neck pain Current visit: Yes Status: Acute Category: Medical Code(s): M54.2 - Cervicalgia; G89.29 - Other chronic pain The patient's infection will respond to the chosen ABx?: Yes Is the patient receiving the right drug, dose, and route?: Yes Could a more targeted ABx be ordered?: No (WBC IMPROVED)
[2019-02-23 08:26] LABS: Basophils % 0.3 % (0.1-2.0); Eosinophils % 0.1 % (0.1-12.0); Hematocrit 42.2 % (37.0-47.0); Lymphocytes # 1.3 K/mm3 (0.7-4.5); Lymphocytes % 11.8 % (10-50); Mean Corpuscular HGB Conc 30.7 g/dL (31.8-35.4); Mean Corpuscular Volume 89.7 fl (81-99); Monocytes # 0.7 K/mm3 (0.1-1.0); Monocytes % 6.9 % (1.7-9.3); Neutrophils # 8.7 K/mm3 (1.8-7.8); Platelet Count 369 K/mm3 (142-424); Red Blood Count 4.71 M/mm3 (4.20-5.40); White Blood Count 10.7 K/mm3 (4.8-10.8)
--- NOTE | 2019-02-23 08:49 | Progress Note ---
Internal Medicine - PN: Subj *Date: 02/23/19 *Time: 08:55 Interval history: She rested better last night. Less pleuritic pain. She still has a mostly nonproductive cough. She has been up and ambulating in the room. She is eager to go home. Exam Vital signs and Labs for Last 24 Hours: Temp Pulse Resp BP Pulse Ox 98.2 F 112 H 20 154/89 H 97 02/23/19 07:48 02/23/19 07:48 02/23/19 07:48 02/23/19 07:48 02/23/19 07:48 Laboratory Results - last 24 hr 02/23/19 07:23: WBC 10.7, RBC 4.71, Hgb 13.0, Hct 42.2, MCV 89.7, MCH 27.5, MCHC 30.7 L, RDW 13.0, Plt Count 369, MPV 8.0, Neut % (Auto) 81.0 H, Lymph % (Auto) 11.8, Ralls % (Auto) 6.9, Eos % (Auto) 0.1, Baso % (Auto) 0.3, Neut # (Auto) 8.7 H, Lymph # (Auto) 1.3, Ralls # (Auto) 0.7, Eos # (Auto) 0.0, Baso # (Auto) 0.0 I & O for Last 24 hours: Intake & Output 02/20/19 02/21/19 02/22/19 02/23/19 11:59 11:59 11:59 11:59 Intake Total 360 / 360 2560 / 2560 720 / 720 1340 / 1340 Output Total 1200 / 1200 400 / 400 800 / 800 1750 / 1750 Balance -840 / -840 2160 / 2160 -80 / -80 -410 / -410 Weight 185 lb 6 oz 193 lb 8 oz 193 lb 7.995 oz 190 lb 7 oz Narrative: No respiratory distress. Color is normal. Chest reveals improved breath sounds in the bases. Few crackles. No wheezes. Heart is regular. Extremities show 1+ bilateral pretibial edema Assessment and Plan (1) CAP (community acquired pneumonia) Current visit: Yes Status: Acute Qualifiers: Laterality: right Lung location: middle lobe of lung Qualified Code(s): J18.1 - Lobar pneumonia, unspecified organism Category: Medical Code(s): J18.9 - Pneumonia, unspecified organism (2) Severe sepsis Current visit: Yes Status: Acute Category: Medical Code(s): A41.9 - Sepsis, unspecified organism; R65.20 - Severe sepsis without septic shock (3) Leukocytosis Current visit: Yes Status: Acute Category: Medical Code(s): D72.829 - Elevated white blood cell count, unspecified (4) Hypokalemia Current visit: Yes Status: Acute Category: Medical Code(s): E87.6 - Hypokalemia (5) Renal insufficiency Current visit: Yes Status: Acute Category: Medical Code(s): N28.9 - Disorder of kidney and ureter, unspecified (6) Hypertension Current visit: Yes Status: Chronic Category: Medical Code(s): I10 - Essential (primary) hypertension (7) COPD (chronic obstructive pulmonary disease) Current visit: Yes Status: Chronic Category: Medical Code(s): J44.9 - Chronic obstructive pulmonary disease, unspecified (8) Hyperglycemia Current visit: Yes Status: Acute Category: Medical Code(s): R73.9 - Hyperglycemia, unspecified (9) Chronic neck pain Current visit: Yes Status: Acute Category: Medical Code(s): M54.2 - Cervicalgia; G89.29 - Other chronic pain - Assessment and plan all Dx Assessment and Plan for all problems:: She continues to improve daily. She is stable for discharge home. She will be on continued course of Ceftin for an additional 6 days. Indomethacin as needed for her pleuritic pain. She is to follow-up with her primary care physician, Dr. Macdonald, in 4 to 5 days.
--- NOTE | 2019-02-24 14:23 | Discharge Summary ---
General - General Admission date:: 02/18/19 <Tim Escudero - 03/10/19 22:49> 02/18/19 <Fouzia Louis - 02/24/19 14:24> Discharge date: 02/23/19 <Fouzia Louis - 02/24/19 14:24> HPI HPI: Ms. Aviles is a 58-year-old female patient of [facility] who has a history of oxygen dependent COPD, chronic back pain, and hypertension. She states she began feeling poorly and started vomiting and ran a fever with chills. She became more short of breath. She presented to the emergency room for evaluation and treatment and was found to have a right middle lobe and right lower lobe pneumonia. She was admitted and started on IV antibiotics, pain control, and antiemetics. She had not had any vomiting since admission but continued with some right upper abdominal and right mid back pain. She stated her shortness of breath and cough were at baseline. <Fouzia Louis - 02/24/19 14:24> Hospital Course Hospital Course: The patient's chest x-ray showed a right lower lobe pneumonia. Whe had an abdominal pelvic CT showing a right middle lobe and right lower lobe pneumonia but no acute abdominal findings. She was admitted and started on IV antibiotics, nebs, and steroids. She was continued on oxygen. Her potassium normalized and her renal function improved. She had worsening of her right- sided pain after rolling in bed and was therefore started on some Toradol. A repeat chest x-ray was ordered. It showed no significant change in her pneumonia and increasing consolidation in the left lower lobe with a small left pleural effusion. She had an echo showing mild biatrial enlargement with an ejection fraction of 55% and grade 1 diastolic dysfunction. She was able to rest better with less pleuritic chest pain on the right. Her white blood cell count improved. MiraLAX and Dulcolax were added for constipation. She was able to get up and ambulate around the room and was anxious to go home. She was stable to be discharged home on a continued course of Ceftin for an additional 6 days as well as indomethacin as needed for her pleuritic chest pain. She will follow-up with her primary care physician in 4 to 5 days. Her blood cultures showed no growth. <Fouzia Louis - 02/24/19 14:24> Objective Vital signs: Temp Pulse Resp BP Pulse Ox 98.2 F 94 H 20 154/89 H 95 02/23/19 07:48 02/23/19 09:10 02/23/19 07:48 02/23/19 07:48 02/23/19 09:10 <Tim Escudero - 03/10/19 22:49> Temp Pulse Resp BP Pulse Ox 98.2 F 94 H 20 154/89 H 95 02/23/19 07:48 02/23/19 09:10 02/23/19 07:48 02/23/19 07:48 02/23/19 09:10 <Fouzia Louis - 02/24/19 14:24> Narrative: No respiratory distress. Color is normal. Chest reveals improved breath sounds in the bases. Few crackles. No wheezes. Heart is regular. Extremities show 1+ bilateral pretibial edema <Fouzia Louis - 02/24/19 14:24> DS: Diagnosis - Discharge Diagnosis (1) CAP (community acquired pneumonia) Status: Acute (2) Severe sepsis Status: Acute (3) Leukocytosis Status: Acute (4) Hypokalemia Status: Acute (5) Renal insufficiency Status: Acute (6) Hypertension Status: Chronic (7) COPD (chronic obstructive pulmonary disease) Status: Chronic (8) Hyperglycemia Status: Acute (9) Chronic neck pain Status: Acute <Fouzia Louis - 02/24/19 14:09> (1) CAP (community acquired pneumonia) Status: Acute (2) Severe sepsis Status: Acute (3) Leukocytosis Status: Acute (4) Hypokalemia Status: Acute (5) Renal insufficiency Status: Acute (6) Hypertension Status: Chronic (7) COPD (chronic obstructive pulmonary disease) Status: Chronic (8) Hyperglycemia Status: Acute (9) Chronic neck pain Status: Acute <Tim Escudero - 03/10/19 22:49> Discharge Plan - Patient Discharge Instructions ACTIVITY: Continue current activity <Fouzia Louis - 02/24/19 14:24> DIET: continue same diet <Fouzia Louis - 02/24/19 14:24> Patient Instructions: DI for Pneumonia -- Adult, DI for Sepsis -- Adult <Tim Escudero - 03/10/19 22:49> Forms: <Tim Escudero - 03/10/19 22:49> - Follow up Plan Follow up with: Gosia Macdonald [Primary Care Provider] - 02/28/19 <Tim Escudero - 03/10/19 22:49> Disposition: Home, Self-Care <Tim Escudero - 03/10/19 22:49> Home Medications: Home Medications Medication Instructions Recorded Confirmed Type Furosemide [Furosemide 20mg Tab] 20 mg PO DAILY 02/18/19 02/18/19 History Gabapentin [Gabapentin 400mg Cap] 400 mg PO QID 02/18/19 02/19/19 History Ipratropium/Albuterol Sulfate 1 puff PO QID 02/18/19 02/19/19 History [Combivent Respimat Inh] Tizanidine HCl 4 - 8 mg PO QID 02/18/19 02/19/19 History Lisinopril [Lisinopril 10mg Tab] 10 mg PO DAILY 02/19/19 02/19/19 History Potassium Chloride [Micro-K 10mEq 10 meq PO DAILY 02/19/19 02/19/19 History cap] Indomethacin 25 mg PO Q6HP PRN #24 cap 02/23/19 Rx cefUROXime axetil [Ceftin 500mg 500 mg PO BID #12 tab 02/23/19 Rx Tab (GEQ)] <Tim Escudero - 03/10/19 22:49> Prescriptions/Medication Reconciliation: New cefUROXime axetil [Ceftin 500mg Tab (GEQ)] 500 mg PO BID #12 tab Indomethacin 25 mg PO Q6HP PRN #24 cap PRN Reason: Moderate Pain Continued Tizanidine HCl 4 - 8 mg PO QID Ipratropium/Albuterol Sulfate [Combivent Respimat Inh] 1 puff PO QID Gabapentin [Gabapentin 400mg Cap] 400 mg PO QID Furosemide [Furosemide 20mg Tab] 20 mg PO DAILY Potassium Chloride [Micro-K 10mEq cap] 10 meq PO DAILY Lisinopril [Lisinopril 10mg Tab] 10 mg PO DAILY <Tim Escudero - 03/10/19 22:49> - Problem Reconciliation Problems Reviewed?: Yes <Tim Escudero - 03/10/19 22:49> Yes <Fouzia Louis - 02/24/19 14:24> - Additional Information Additional Information: Concur with plan for discharge as outlined above. <Tim Escudero - 03/10/19 22:49>
== END 2019-02-23 12:20 | disposition home or self-care (01) | DRG 195 ==
LOC: 2ND 15:58 → ER 15:58 → 2ND 19:42 → OBSVTOIN 19:42
PROVIDERS: ADMIT Family Medicine; ATTEND Family Medicine
CPT/HCPCS: 36415; 71010; 71020; 71045; 71046; 74177; 80048; 80053; 81001; 82150; 82550; 82553; 83036; 83605; 83690; 84484; 85007; 85025; 85651; 87040; 93005; 93306; 94640; 94760; 94761; 96365; 96367; 96375; 99285; J0456; J1956; J2405; Q9967

== ENCOUNTER 2020-09-18 13:47 | Emergency (ER) | payer MEDICARE, SELFPAY ==
[2020-09-18 13:47] VITALS: RESP 14; TEMP 36.5; O2SAT 93; BMI 47.0
--- NOTE | 2020-09-18 13:53 | HMH.EDGENADL ---
ED Disposition Clinical Impression: Hypoxia Sinusitis Qualifiers: Sinusitis location: frontal Chronicity: acute Recurrence: not specified as recurrent Qualified Code(s): J01.10 - Acute frontal sinusitis, unspecified Disposition: Home, Self-Care Condition on Discharge: Good Referrals: Gosia Macdonald [Primary Care Provider] - 3 days Time of Disposition: 16:26 - Critical Care Critical Care Time: No Attestation: On , the high probability of a clinically significant, sudden or life threatening deterioration of the following system(s) required my full and direct attention, intervention and personal management. The time I documented below is in addition to time spent performing reported procedures but includes the following listed in this critical care notation. Medical Decision Making - Medical Records Medical records reviewed: Yes: I reviewed the patient's medical records. - Patel Inquiry Pt receiving controlled substance: No Vital Signs: 09/18/20 13:47 Temperature 97.7 F Temperature Source Oral Respiratory Rate 14 02 Sat by Pulse Oximetry 93 L Oxygen Delivery Method Nasal Cannula Oxygen Flow Rate (LPM) 3 - Lab Data Lab results reviewed: Yes: I reviewed the patient's lab results. Lab Results 09/18/20 14:00: WBC 8.5, RBC 5.84 H, Hgb 16.5 H, Hct 51.4 H, MCV 88.1, MCH 28.3, MCHC 32.1, RDW 13.0, Plt Count 268, MPV 8.2, Neut % (Auto) 53.5, Lymph % (Auto) 37.1, [place] % (Auto) 6.3, Eos % (Auto) 2.3, Baso % (Auto) 0.8, Neut # (Auto) 4.5, Lymph # (Auto) 3.1, [place] # (Auto) 0.5, Eos # (Auto) 0.2, Baso # (Auto) 0.1 09/18/20 14:00: Sodium 139, Potassium 4.2, Chloride 100, Carbon Dioxide 33 H, Anion Gap 10.2, BUN 9, Creatinine 0.50 L, Estimated Creat Clear 119, Estimated GFR 127, Est GFR ( Amer) 153, Glucose 94, Calcium 8.9, Troponin I < 0.01, NT-Pro-B Natriuret Pep 31.9 Result diagrams: 09/18/20 14:00 09/18/20 14:00 Orders (Tests/Meds): ED MEDICATIONS Generic Name Dose Route Start Last Admin Trade Name Aparna PRN Reason Stop Dose Admin Lactated Ringer's 1,000 mls @ 999 mls/hr 09/18/20 15:00 Lactated Ringer's 1000 Ml Bag IV 09/18/20 16:00 .Q1H1M [facility] ORDERS Category Date Time Status Troponin I Q3H Lab 09/18/20 17:00 Ordered Troponin I Q3H Lab 09/18/20 20:00 Ordered - ECG Data Tracing #1 83 bpm, normal sinus rhythm, no ST elevation or depression, heavy artifact in multiple leads. Normal intervals. No ectopy. ECG initial impression date: 09/18/20 ECG initial impression time: 14:20 Medical Decision Narrative: 59yo F evaluated for shortness of breath and anxiety. Patient does not seem acutely anxious during my interaction. She is hypoxic. Nasal cannula 2 L O2 is applied and the patient's O2 saturations improved to a normal value. Of note she is breathing through her nose with nasal cannula in place. Routine shortness of breath work-up is completed and unremarkable. Chest x-ray is clear for airspace disease but does note possible vague opacity in upper lobe. Recommended repeat study as an outpatient. Lengthy discussion with the patient regarding viral versus bacterial etiology for her sinusitis. With a benign exam, no cough, no fever, only 3 days of symptoms, discussed most likely viral at this point. Patient is feeling better after work-up is benign and she has O2 in place and agrees that following up with her PCP on Sunday is the most reasonable thing to do at this point. She is appropriate and stable for discharge home at this time. General Adult HPI - General Stated complaint: SOA Time Seen by Provider: 09/18/20 13:53 Mode of Arrival: Wheelchair - History of Present Illness HPI narrative: 59yo F with past medical history significant renal insufficiency, hypertension, COPD presents the emergency department with concern for sinus infection. Patient reports she is had severe nasal congestion for 3 days. She reports this makes her feel more anxious. She states she cannot breath
--- NOTE | 2020-09-18 13:54 | XR_ITS ---
PROCEDURE: XR CHEST PORTABLE CLINICAL HISTORY: sob Shortness of air and congestion COMPARISON: CR XR CHEST PORTABLE from 02/18/2019 CR XR CHEST 2V from 02/20/2019 FINDINGS: The cardiomediastinal silhouette and pulmonary vascularity are within normal limits. COPD. No lobar consolidation or collapse is evident. There is faint opacity in the right upper lobe in the 2nd interspace anteriorly nonspecific There is an old right 7th rib fracture. IMPRESSION: COPD. No definite acute finding. Nonspecific vague opacity in the right upper lobe. Stability may be confirmed with follow-up Dictated by: Jay Black MD 09/18/2020 14:33 Jay Black MD in [place] 09/18/2020 14:33
--- NOTE | 2020-09-18 14:11 | ECG_ITS ---
APPROVED REPORT Exam: Resting ECG HR:83 bpm ECG Measurements Heart Rate 83 AXES [place] 158 P 100 QRSd 78 QRS 96 QT 368 T 75 QTc 432 Conclusion Normal sinus rhythm Rightward axis Late r wave progression, unchanged from prior Abnormal ECG Electronically signed by : Case Barrios, 09/19/2020 08:49:55
[2020-09-18 14:16] LABS: Basophils # 0.1 K/mm3 (0-0.2); Basophils % 0.8 % (0.1-2.0); Eosinophils # 0.2 K/mm3 (0.0-0.4); Eosinophils % 2.3 % (0.1-12.0); Hematocrit 51.4 % (37.0-47.0); Hemoglobin 16.5 g/dL (12.2-16.2); Lymphocytes # 3.1 K/mm3 (0.7-4.5); Lymphocytes % 37.1 % (10-50); Mean Corpuscular HGB Conc 32.1 g/dL (31.8-35.4); Mean Corpuscular Hemoglobin 28.3 pg (27.0-31.2); Mean Corpuscular Volume 88.1 fl (81-99); Mean Platelet Volume 8.2 fl (7.4-10.4); Monocytes # 0.5 K/mm3 (0.1-1.0); Monocytes % 6.3 % (1.7-9.3); Neutrophils # 4.5 K/mm3 (1.8-7.8); Neutrophils % 53.5 % (37.0-80.0); Platelet Count 268 K/mm3 (142-424); Red Blood Count 5.84 M/mm3 (4.20-5.40); White Blood Count 8.5 K/mm3 (4.8-10.8)
[2020-09-18 14:23] LABS: Chloride 100 mmol/L (98-107)
[2020-09-18 14:24] LABS: Potassium 4.2 mmoL/L (3.5-5.1); Sodium 139 mmol/L (136-145)
[2020-09-18 14:26] LABS: Blood Urea Nitrogen 9 mg/dl (7-17); Creatinine Clearance Estimated 119 mL/min (50-200); Estimated Glomerular Filt Rate 127 ml/min (>60); GFR (African American) 153 ML/MIN (>60)
[2020-09-18 14:27] LABS: Anion Gap 10.2 mEq/L (5-15); Calcium 8.9 mg/dl (8.4-10.2); Carbon Dioxide 33 mmol/L (22.0-30.0); Glucose 94 mg/dl (74-100)
[2020-09-18 14:36] LABS: NT Pro Brain Natriuretic Pep. 31.9 pg/mL (0-125)
[2020-09-18 14:40] LABS: Troponin I < 0.01 ng/ml (0.00-0.034)
[2020-09-18 16:36] VITALS: BP 152/78; PULSE 80; RESP 22; TEMP 36.7; O2SAT 96
== END 2020-09-18 16:39 | disposition home or self-care (01) ==
PROVIDERS: Emergency Provider Family Medicine; PCP Family Medicine
DX: J01.10 Acute frontal sinusitis, unspecified (principal); R09.02 Hypoxemia; J44.9 Chronic obstructive pulmonary disease, unspecified; I10 Essential (primary) hypertension; F41.9 Anxiety disorder, unspecified; Z79.899 Other long term (current) drug therapy
CPT/HCPCS: 71045; 80048; 83880; 84484; 85025; 93005; 99282

== ENCOUNTER 2020-10-02 13:24 | Inpatient (IN) | payer MEDICARE, SELFPAY ==
[2020-10-02] VITALS (17 sets, daily range): BP systolic 93–158; BP diastolic 52–122; PULSE 73–146; RESP 12–22; TEMP 36.7–36.8; O2SAT 90–98; BMI 24.2; BMI 26.2
--- NOTE | 2020-10-02 13:28 | HMH.EDGENADL ---
ED Disposition Clinical Impression: Colitis, Intractable nausea and vomiting Sepsis Qualifiers: Sepsis type: sepsis due to unspecified organism Sepsis acute organ dysfunction status: without acute organ dysfunction Qualified Code(s): A41.9 - Sepsis, unspecified organism Disposition: Admitted as Observation Condition on Discharge: Fair Referrals: Gosia Macdonald [Primary Care Provider] - Time of Disposition: 19:13 - Critical Care Critical Care Time: No Attestation: On , the high probability of a clinically significant, sudden or life threatening deterioration of the following system(s) required my full and direct attention, intervention and personal management. The time I documented below is in addition to time spent performing reported procedures but includes the following listed in this critical care notation. Medical Decision Making - Medical Records Medical records reviewed: Yes: I reviewed the patient's medical records. - Patel Inquiry Pt receiving controlled substance: No Vital Signs: 10/02/20 13:24 Temperature 98.2 F Temperature Source Oral Pulse Rate [Radial] 129 H Respiratory Rate 22 Blood Pressure [Right Arm] 151/101 H Blood Pressure Mean [Right Arm] 117 Blood Pressure Position [Right Arm] Sitting 02 Sat by Pulse Oximetry 98 Oxygen Delivery Method Room Air - Lab Data Lab results reviewed: Yes: I reviewed the patient's lab results. Lab Results 10/02/20 13:31: WBC 18.3 H, RBC 6.28 H, Hgb 18.0 H, Hct 54.4 H, MCV 86.7, MCH 28.7, MCHC 33.0, RDW 12.9, Plt Count 274, MPV 9.2, Neut % (Auto) 76.6, Lymph % (Auto) 17.0, [place] % (Auto) 5.4, Eos % (Auto) 0.6, Baso % (Auto) 0.5, Neut # (Auto) 14.0 H, Lymph # (Auto) 3.1, [place] # (Auto) 1.0, Eos # (Auto) 0.1, Baso # (Auto) 0.1, Total Counted 100, Neutrophils % (Manual) 76, Lymphocytes % (Manual) 19, Monocytes % (Manual) 5, Platelet Estimate Normal, RBC Morphology Normal 10/02/20 13:31: Lipase < 10 L 10/02/20 13:31: Sodium 141, Potassium 3.1 L, Chloride 95 L, Carbon Dioxide 36 H, Anion Gap 13.1, BUN 19 H, Creatinine 0.50 L, Estimated Creat Clear 130, Estimated GFR 126, Est GFR ( Amer) 153, Glucose 133 H, Calcium 9.7, Total Bilirubin 1.0, AST 22, ALT 18, Alkaline Phosphatase 113, Total Protein 8.2, Albumin 4.9, Globulin 3.3 H, Albumin/Globulin Ratio 1.5 10/02/20 14:51: Urine Color Yellow, Urine Appearance Clear, Urine pH 6.5, Ur Specific [place] 1.020, Urine Protein Negative, Urine Glucose (UA) Negative, Urine Ketones 2+, Urine Blood 1+, Urine Nitrate Negative, Urine Bilirubin 1+ A, Urine Urobilinogen 0.2, Ur Leukocyte Esterase Negative, Urine RBC 3-5, Urine WBC Occasional, Ur Squamous Epith Cells 10-20, Amorphous Sediment 1+, Urine Bacteria None, Urine Yeast Occasional 10/02/20 15:22: Lactate 1.1 10/02/20 16:25: Chlamy pneumoniae PCR Not detected, Adenovirus (PCR) Not detected, B. pertussis DNA (PCR) Not detected, Coronavirus OC43 (PCR) Not detected, Coronavirus HKU1 (PCR) Not detected, Coronavirus 229E (PCR) Not detected, SARS-CoV-2 (PCR) Not detected, Coronavirus NL63 (PCR) Not detected, Human Metapneumovir PCR Not detected, Influenza A (H1) PCR Not detected, Influ A (H1N1/09) PCR Not detected, Influenza A (H3) PCR Not detected, Influenza Type A (PCR) Not detected, Influenza Type B (PCR) Not detected, M. pneumoniae (PCR) Not detected, Parainfluenza 1 (PCR) Not detected, Parainfluenza 2 (PCR) Not detected, Parainfluenza 3 (PCR) Not detected, Parainfluenza 4 (PCR) Not detected, RSV (PCR) Not detected, Entero/Rhino (PCR) Not detected Result diagrams: 10/02/20 13:31 10/02/20 13:31 Orders (Tests/Meds): ED MEDICATIONS Generic Name Dose Route Start Last Admin Trade Name Freq PRN Reason Stop Dose Admin Vancomycin HCl 1,250 mg/ 250 mls @ 125 mls/hr 10/02/20 15:00 10/02/20 19:07 Sodium Chloride IV 10/16/20 14:59 125 mls/hr Q12H KENNY Administration Discontinued Medications Generic Name Dose Route Start Last Admin Trade Name Freq PRN Reason Stop Dose
[2020-10-02 13:39] LABS: Chloride 95 mmol/L (98-107); Sodium 141 mmol/L (136-145)
[2020-10-02 13:40] LABS: Potassium 3.1 mmoL/L (3.5-5.1)
[2020-10-02 13:42] LABS: Alanine Aminotransferase 18 U/L (12-78); Alkaline Phosphatase 113 U/L (38-126); Aspartate Amino Transferase 22 U/L (14-36); Blood Urea Nitrogen 19 mg/dl (7-17); Creatinine Clearance Estimated 130 mL/min (50-200); Estimated Glomerular Filt Rate 126 ml/min (>60); GFR (African American) 153 ML/MIN (>60)
[2020-10-02 13:43] LABS: Albumin Level 4.9 g/dl (3.5-5.0); Albumin/Globulin Ratio 1.5 (1.1-1.8); Anion Gap 13.1 mEq/L (5-15); Calcium 9.7 mg/dl (8.4-10.2); Carbon Dioxide 36 mmol/L (22.0-30.0); Globulin 3.3 g/dL (1.3-3.2); Glucose 133 mg/dl (74-100); Total Protein,Serum 8.2 g/dl (6.3-8.2)
[2020-10-02 13:46] LABS: Lipase < 10 U/L (23-300)
[2020-10-02 13:47] LABS: Basophils # 0.1 K/mm3 (0-0.2); Basophils % 0.5 % (0.1-2.0); Eosinophils # 0.1 K/mm3 (0.0-0.4); Eosinophils % 0.6 % (0.1-12.0); Hematocrit 54.4 % (37.0-47.0); Lymphocytes # 3.1 K/mm3 (0.7-4.5); Mean Corpuscular Hemoglobin 28.7 pg (27.0-31.2); Mean Corpuscular Volume 86.7 fl (81-99); Mean Platelet Volume 9.2 fl (7.4-10.4); Monocytes % 5.4 % (1.7-9.3); Neutrophils % 76.6 % (37.0-80.0); Platelet Count 274 K/mm3 (142-424); Red Blood Count 6.28 M/mm3 (4.20-5.40); Red Cell Distribution Width 12.9 % (11.5-17.5); White Blood Count 18.3 K/mm3 (4.8-10.8)
[2020-10-02 13:49] LABS: MANUAL DIFFERENTIAL MANUAL DIFFERENTIAL (MANUAL DIFF)
[2020-10-02 14:02] LABS: Lymphocytes % 19 % (10-50); Monocytes % 5 % (2-9); Neutrophils % 76 % (42-76); Total Cells Counted 100
[2020-10-02 14:03] LABS: Platelet Estimate Normal; RBC Morphology Normal
[2020-10-02 14:37] LABS: Microscopic, Urine URINE MICROSCOPIC (MICROSCOPIC)
[2020-10-02 15:05] LABS: Appearance,Urine CLEAR (Clear); Blood, Urine 1+ (Negative); Color,Urine YELLOW (Yellow); Glucose,Urine (UA) Negative (Negative); Ketones,Urine 2+ (Negative); Leukocyte Esterase,Urine Negative (Negative); Nitrate,Urine Negative (Negative); PH,Urine 6.5 (5.0-8.5); Protein,Urine Negative (Negative); Urobilinogen,Urine 0.2 EU/dl (0.2)
[2020-10-02 15:06] LABS: Bilirubin,Urine 1+ (Negative)
--- NOTE | 2020-10-02 15:12 | CT_ITS ---
PROCEDURE INFORMATION: Exam: CT Angiography Abdomen and Pelvis With Contrast, GI Bleeding Exam date and time: 10/02/2020 3:12 PM Age: 60 years old Clinical indication: Abdominal pain; Generalized; Prior surgery; Surgery date: 6+ months; Surgery type: Gall bladder, hysterectomy, appendix; Additional info: Abd pain, brbpr TECHNIQUE: Imaging protocol: Computed tomographic angiography of the abdomen and pelvis with contrast. 3D rendering (Not supervised by radiologist): MIP and/or 3D reconstructed images were created by the technologist. Radiation optimization: All CT scans at this facility use at least one of these dose optimization techniques: automated exposure control; mA and/or kV adjustment per patient size (includes targeted exams where dose is matched to clinical indication); or iterative reconstruction. Contrast material: ISOVUE 370; Contrast volume: 100 ml; Contrast route: INTRAVENOUS (IV); COMPARISON: CT ABDOMEN PELVIS W CON 02/18/2019 5:55 PM FINDINGS: Aorta: No aortic aneurysm. No aortic dissection. Celiac trunk and mesenteric arteries: No occlusion or significant stenosis. Renal arteries: No occlusion or significant stenosis. Right iliac arteries: No occlusion or significant stenosis. Left iliac arteries: No occlusion or significant stenosis. Other veins: There is a filling defect present within the left ovarian vein which may represent partial filling, however a thrombosis cannot be excluded. Clinical correlation is needed. Liver: There is a diffuse decrease in hepatic parenchymal density, consistent with mild fatty infiltration. Gallbladder and bile ducts: There has been a cholecystectomy. Pancreas: Unremarkable. No mass. No ductal dilation. Spleen: Unremarkable. No splenomegaly. Adrenal glands: Kidneys and ureters: Unremarkable. No solid mass. No hydronephrosis. Stomach and bowel: Mild thickening of the calzada of the descending rectosigmoid colon consistent with mild colitis. Appendix: There has been a prior appendectomy. Intraperitoneal space: Unremarkable. No free air. No significant fluid collection. Lymph nodes: Unremarkable. No enlarged lymph nodes. Urinary bladder: Unremarkable. No mass. Reproductive: There has been a hysterectomy. Bones/joints: The lumbar spine demonstrates mild degenerative changes at multiple levels. Soft tissues: There is a fat-containing umbilical hernia. IMPRESSION: 1. Mild thickening of the calzada of the descending rectosigmoid colon consistent with mild colitis. 2. There is a filling defect present within the left ovarian vein which may represent partial filling, however a thrombosis cannot be excluded. Clinical correlation is needed.
[2020-10-02 15:17] LABS: Amorphous Sediment,Urine 1+ /lpf; WBC,Urine Occasional #/hpf (0-3)
[2020-10-02 15:18] LABS: Yeast,Urine Occasional /lpf
--- NOTE | 2020-10-02 15:28 | HMH.PHACONS ---
- Pharmacy Consult Date: 10/02/20 Time: 15:28 Referring provider: DR. KRAUS Reason for Consult:: VANCOMYCIN DOSING Allergies and ADEs:: Allergies Allergy/AdvReac Type Severity Reaction Status Date / Time Penicillins Allergy Verified 02/18/19 15:59 Home Medications:: Home Medications Medication Instructions Recorded Confirmed Type Furosemide [Furosemide 20mg Tab*] 20 mg PO DAILY 02/18/19 02/18/19 History Gabapentin [Gabapentin 400mg Cap] 400 mg PO QID 02/18/19 02/19/19 History Ipratropium/Albuterol Sulfate 1 puff PO QID 02/18/19 02/19/19 History [Combivent Respimat Inh] Tizanidine HCl 4 - 8 mg PO QID 02/18/19 02/19/19 History Potassium Chloride [Micro-K 10mEq 10 meq PO DAILY 02/19/19 02/19/19 History cap] lisinopriL [Lisinopril 10mg Tab] 10 mg PO DAILY 02/19/19 02/19/19 History Indomethacin 25 mg PO Q6HP PRN #24 cap 02/23/19 Rx cefUROXime axetiL [Ceftin 500mg 500 mg PO BID #12 tab 02/23/19 Rx Tab (GEQ)] Height: 1.68 m Weight: 68.039 kg Laboratory Results:: Laboratory Results - last 24 hr 10/02/20 13:31: WBC 18.3 H, RBC 6.28 H, Hgb 18.0 H, Hct 54.4 H, MCV 86.7, MCH 28.7, MCHC 33.0, RDW 12.9, Plt Count 274, MPV 9.2, Neut % (Auto) 76.6, Lymph % (Auto) 17.0, [place] % (Auto) 5.4, Eos % (Auto) 0.6, Baso % (Auto) 0.5, Neut # (Auto) 14.0 H, Lymph # (Auto) 3.1, [place] # (Auto) 1.0, Eos # (Auto) 0.1, Baso # (Auto) 0.1, Total Counted 100, Neutrophils % (Manual) 76, Lymphocytes % (Manual) 19, Monocytes % (Manual) 5, Platelet Estimate Normal, RBC Morphology Normal 10/02/20 13:31: Lipase < 10 L 10/02/20 13:31: Sodium 141, Potassium 3.1 L, Chloride 95 L, Carbon Dioxide 36 H, Anion Gap 13.1, BUN 19 H, Creatinine 0.50 L, Estimated Creat Clear 130, Estimated GFR 126, Est GFR ( Amer) 153, Glucose 133 H, Calcium 9.7, Total Bilirubin 1.0, AST 22, ALT 18, Alkaline Phosphatase 113, Total Protein 8.2, Albumin 4.9, Globulin 3.3 H, Albumin/Globulin Ratio 1.5 10/02/20 14:51: Urine Color Yellow, Urine Appearance Clear, Urine pH 6.5, Ur Specific [place] 1.020, Urine Protein Negative, Urine Glucose (UA) Negative, Urine Ketones 2+, Urine Blood 1+, Urine Nitrate Negative, Urine Bilirubin 1+ A, Urine Urobilinogen 0.2, Ur Leukocyte Esterase Negative, Urine RBC 3-5, Urine WBC Occasional, Ur Squamous Epith Cells 10-20, Amorphous Sediment 1+, Urine Bacteria None, Urine Yeast Occasional Medical History: Reports:: Chronic Obstructive Pulmonary Disease (COPD), Hypertension Denies:: Cancer, Diabetes Mellitus Type 1, Diabetes Mellitus Type 2, MRSA Assessment and Plan - Assessment and plan all Dx Assessment and Plan for all problems:: Age: 60 yo Serum creatinine: 0.5 mg/dL Height: 66.0 Inches Weight (kg): 68.04 Assessment: IBW (kg): 59.30 Dosing wt(kg): 68.04 Estimated Creatinine clearance (ml/min): 113.4 CRCL method: Cockcroft and Gault using ibw(default). Drug selected: Vancomycin Loading dose (mg): 0 Vd (liters): 54.4 (factor used: 0.8 L/kg) Russ (hr-1): 0.099 Half life (hrs): 7.00 Recommended dose: 1250 mg Interval: 12 hrs Infusion time (hrs): 2.0 Predicted peak (mcg/mL): 30.0 Predicted trough (mcg/mL): 11.15 Total body weight is being used for vancomycin dosing. Recommendations: Give Vancomycin 1250 mg q 12 hrs with an expected Cpeak of 30.0 mcg/ml and an expected Ctrough of 11.15 mcg/ml
[2020-10-02 15:42] LABS: Lactic Acid 1.1 mmol/L (0.7-2.1)
--- NOTE | 2020-10-02 15:52 | ECG_ITS ---
APPROVED REPORT Exam: Resting ECG HR:122 bpm ECG Measurements Heart Rate 122 AXES NM 152 P 81 QRSd 96 QRS 99 QT 316 T 68 QTc 450 Conclusion Sinus tachycardia with fusion complexes Biatrial enlargement Rightward axis Pulmonary disease pattern Abnormal ECG Electronically signed by : Case Barrios, 10/03/2020 20:28:06
--- NOTE | 2020-10-02 16:04 | PC.NURSE ---
vrad on with Dr jay
--- NOTE | 2020-10-02 16:30 | PC.NURSE ---
PT UPDATED ON PLAN OF CARE
[2020-10-02 16:37] LABS: Adenovirus,PCR Not Detected (NotDetected); Bordetella Pertussis Not Detected (NotDetected); Chlamydophila Pneumoniae, PCR Not Detected (NotDetected); Coronavirus 19, PCR Not Detected (NotDetected); Coronavirus 229E Not Detected (NotDetected); Coronavirus NL63 Not Detected (NotDetected); Coronavirus OC43 Not Detected (NotDetected); Coronovirus HKU1,PCR Not Detected (NotDetected); Human Metapneumovirus Not Detected (NotDetected); Influenza A, PCR Not Detected (NotDetected); Influenza AH1, 2009 Not Detected (NotDetected); Influenza AH1, PCR Not Detected (NotDetected); Influenza AH3,PCR Not Detected (NotDetected); Influenza B, PCR Not Detected (NotDetected); Mycoplasma Pneumoniae, PCR Not Detected (NotDetected); Parainfluenza 1, PCR Not Detected (NotDetected); Parainfluenza 2, PCR Not Detected (NotDetected); Parainfluenza 3, PCR Not Detected (NotDetected); Parainfluenza 4, PCR Not Detected (NotDetected); Respiratory Syncytial Virus Not Detected (NotDetected); Rhinovirus/Enterovirus Not Detected (NotDetected)
--- NOTE | 2020-10-02 17:30 | PC.NURSE ---
UPDATED ON PLAN OF CARE
--- NOTE | 2020-10-02 18:53 | PC.NURSE ---
Dr jay speaking to Dr Bermeo
--- NOTE | 2020-10-02 19:46 | PC.NURSE ---
REPORT CALLED TO FLOOR
--- NOTE | 2020-10-02 20:04 | PC.NURSE ---
Addendum entered by Vale Brooks CNA 10/02/20 20:27: CORRECTION - ARRIVAL TIME TO FLOOR WAS 1999 Original Note: pt arrived to floor from ed w/ staff via w/c at 2200
[2020-10-03] VITALS (9 sets, daily range): BP systolic 88–159; BP diastolic 53–94; PULSE 60–110; RESP 12–24; TEMP 36.6–36.8; O2SAT 90–97
--- NOTE | 2020-10-03 05:25 | PC.NURSE ---
pt admitted for colitis. pain meds given per jul. iv patent and infusing. stool sample needed. have been unable to obtain without contamination from urine. bowel movement have just been small amounts of bright red blood. vss. call light in reach. will continue to monitor
[2020-10-03 06:13] LABS: Blood Urea Nitrogen 10 mg/dl (7-17); Carbon Dioxide 39 mmol/L (22.0-30.0); Chloride 101 mmol/L (98-107); Creatinine Clearance Estimated 137 mL/min (50-200); Estimated Glomerular Filt Rate 126 ml/min (>60); GFR (African American) 153 ML/MIN (>60); Glucose 115 mg/dl (74-100); Sodium 141 mmol/L (136-145)
[2020-10-03 06:15] LABS: Basophils # 0.1 K/mm3 (0-0.2); Basophils % 0.5 % (0.1-2.0); Eosinophils # 0.2 K/mm3 (0.0-0.4); Eosinophils % 1.4 % (0.1-12.0); Hematocrit 46.3 % (37.0-47.0); Lymphocytes # 3.8 K/mm3 (0.7-4.5); Lymphocytes % 22.9 % (10-50); Mean Corpuscular HGB Conc 33.4 g/dL (31.8-35.4); Mean Corpuscular Hemoglobin 29.1 pg (27.0-31.2); Mean Platelet Volume 9.5 fl (7.4-10.4); Monocytes # 1.1 K/mm3 (0.1-1.0); Monocytes % 6.8 % (1.7-9.3); Neutrophils # 11.2 K/mm3 (1.8-7.8); Neutrophils % 68.5 % (37.0-80.0); Platelet Count 199 K/mm3 (142-424); Red Blood Count 5.32 M/mm3 (4.20-5.40); Red Cell Distribution Width 13.1 % (11.5-17.5); White Blood Count 16.4 K/mm3 (4.8-10.8)
[2020-10-03 06:17] LABS: MANUAL DIFFERENTIAL MANUAL DIFFERENTIAL (MANUAL DIFF)
[2020-10-03 06:22] LABS: Hemoglobin 15.5 g/dL (12.2-16.2)
[2020-10-03 07:33] LABS: Calcium 8.3 mg/dl (8.4-10.2)
[2020-10-03 07:50] LABS: Lymphocytes % 22 % (10-50); Monocytes % 6 % (2-9); Neutrophils % 72 % (42-76); Platelet Estimate Normal; RBC Morphology Normal; Total Cells Counted 100
--- NOTE | 2020-10-03 09:27 | HMH.PHAVTE ---
[facility] Pharmacy VTE Monitoring - Patient Demographics Admission date: 10/03/20 Report Date: 10/03/20 Time: 09:27 Allergies/Adverse Reactions: Patient Allergies Penicillins Allergy (Verified 02/18/19 15:59) Height: 1.65 m Weight: 71.668 kg Patient Problems: Current Active Problems Colitis (Acute) Sepsis (Acute) Intractable nausea and vomiting (Acute) - VTE Risk Labs: VTE Related Lab Results Hgb 15.5 g/dL (12.2-16.2) D 10/03/20 05:35 Hct 46.3 % (37.0-47.0) 10/03/20 05:35 Plt Count 199 K/mm3 (142-424) D 10/03/20 05:35 BUN 10 mg/dl (7-17) D 10/03/20 05:35 Creatinine 0.50 mg/dl (0.52-1.04) L 10/03/20 05:35 Estimated Creat Clear 137 mL/min (50-200) 10/03/20 05:35 Was VTE Risk Assessment Performed: Yes VTE Score: 2 VTE Risk Level: Very Low Risk - Prophylaxis Types of VTE Prophylaxis: TEDS Knee High (BUD HOSE ORDER PLACED), IPCS Knee High (ER MD ORDERED)
--- NOTE | 2020-10-03 12:32 | HMH.HP ---
*Admission Date: 10/03/20 *Chief complaint: abdominal pain, bloody stools *History of present illness: 60-year-old female with emphysema on chronic oxygen therapy who presented to the ER yesterday after onset of abdominal cramping, pain, bloody stools. States she was at home got up to use the bathroom. Had some hard stool followed shortly by pain, sweating, bright red blood per rectum. Has since had abdominal pain, worse in left lower quadrant. Additionally still having small bloody stools with clots. Had some nausea and vomiting overnight. No isaias fever. No recent antibiotic exposure. Denies any trauma. Reports having had a colonoscopy few years ago at [facility] with no abnormal findings. No family history of inflammatory or autoimmune disorders. No history of C. difficile Admitted from the ER to medicine for further management. Continues to have pain this morning on assessment. Tolerating clear liquid diet. Sitting at bedside on interview, moderate distress. [facility] History I have reviewed the patient's past medical history: Yes Medical History: Reports:: Chronic Obstructive Pulmonary Disease (COPD), Hypertension Denies:: Cancer, Diabetes Mellitus Type 1, Diabetes Mellitus Type 2, MRSA *Have you ever received a pneumonia vaccine?: No *Have you received a flu vaccine this season?: No Other Medical History: Reports: Other (chronic neck and back pain due to DJD/DDD) Laterality Cases: Bilateral: Tonsillectomy Other Surgeries: Yes: Appendectomy, Cholecystectomy, Colonoscopy, Hysterectomy-Total, Tubal Ligation Amputation: No Fractures: Yes (Bilat pinky toes) - *Social History Smoking Status: Former smoker Tobacco Type: cigarettes # Packs/Day (cigarettes): 3 #Yrs smoked (if former smoker): 44 Alcohol Intake: never *Occupational Status:: disabled Housing: apartment Household Members: children *Travel in the last 8 weeks: None Family Hx:: Cancer Review of Systems - Review of Systems Review of systems:: pertinent systems reviewed and negative unless documented below (14 point review of systems performed, pertinent positives and negatives as per HPI) Meds Home Medications Medication Instructions Recorded Confirmed Type Gabapentin [Gabapentin 400mg Cap] 400 mg PO QID 02/18/19 10/02/20 History Ipratropium/Albuterol Sulfate 1 puff PO QIDP PRN 02/18/19 10/02/20 History [Combivent Respimat Inh] Tizanidine HCl 4 - 8 mg PO QID 02/18/19 10/02/20 History lisinopriL [Lisinopril 10mg Tab] 10 mg PO DAILY 02/19/19 10/02/20 History Furosemide [Lasix 20mg tab] 20 mg PO DAILY 10/02/20 10/02/20 History Montelukast Sodium 10 mg PO HS 10/02/20 10/03/20 History Potassium Chloride 10 meq PO DAILY 10/02/20 10/02/20 History Sertraline HCl 50 mg PO DAILY 10/02/20 10/02/20 History hydrOXYzine HCL [Hydroxyzine HCl] 25 mg PO HS 10/02/20 10/02/20 History Allergies Allergy/AdvReac Type Severity Reaction Status Date / Time Penicillins Allergy Verified 02/18/19 15:59 Exam Vital signs and Labs for Last 24 Hours: Temp Pulse Resp BP Pulse Ox 98.0 F 95 H 20 126/61 90 L 10/03/20 11:47 10/03/20 11:47 10/03/20 11:47 10/03/20 11:47 10/03/20 11:47 Laboratory Results - last 24 hr 10/02/20 13:31: WBC 18.3 H, RBC 6.28 H, Hgb 18.0 H, Hct 54.4 H, MCV 86.7, MCH 28.7, MCHC 33.0, RDW 12.9, Plt Count 274, MPV 9.2, Neut % (Auto) 76.6, Lymph % (Auto) 17.0, [place] % (Auto) 5.4, Eos % (Auto) 0.6, Baso % (Auto) 0.5, Neut # (Auto) 14.0 H, Lymph # (Auto) 3.1, [place] # (Auto) 1.0, Eos # (Auto) 0.1, Baso # (Auto) 0.1, Total Counted 100, Neutrophils % (Manual) 76, Lymphocytes % (Manual) 19, Monocytes % (Manual) 5, Platelet Estimate Normal, RBC Morphology Normal 10/02/20 13:31: Lipase < 10 L 10/02/20 13:31: Sodium 141, Potassium 3.1 L, Chloride 95 L, Carbon Dioxide 36 H, Anion Gap 13.1, BUN 19 H, Creatinine 0.50 L, Estimated Creat Clear 130, Estimated GFR 126, Est GFR ( Amer) 153, Glucose 133 H, Calcium 9.7, Total Bilirubin 1
--- NOTE | 2020-10-03 16:36 | PC.NURSE ---
Called positive blood cxs to Dr. Bermeo, he is going to make adjustment to meds as necessary. Dr. Bermeo also made aware of bleeding from rectum. Pt has had a med sz bm soft and brown/bloody and bm's have been stringy. Dr. Bermeo aware tachycardia as well. Meds given per jul. Mx continues. BP stable at this time. Remains of 2 L NC and is afebrile.
[2020-10-03 18:30] LABS: Hematocrit 44.1 % (37.0-47.0); Hemoglobin 14.3 g/dL (12.2-16.2)
[2020-10-03 18:44] LABS: C-Reactive Protein 50.7 mg/L (0-4)
[2020-10-03 19:10] LABS: Erythrocyte Sedimentation Rate 7 mm/hr (0-30)
--- NOTE | 2020-10-03 19:59 | PC.NURSE ---
Clarified that Dr. Bermeo wants bowel prep the two doses, one already given this evening and one scheduled for am.
[2020-10-04] VITALS (21 sets, daily range): BP systolic 91–156; BP diastolic 41–96; PULSE 70–120; RESP 16–24; TEMP 36.6–37.3; O2SAT 90–98
--- NOTE | 2020-10-04 03:00 | PC.NURSE ---
late entry: Pt was up to BSC most of night. bowel prep continued. stools have been brown watery loose stools. pain reported and prn meds given per mar. vss. call light in reach. will continue to monitor
[2020-10-04 06:14] LABS: Basophils # 0.1 K/mm3 (0-0.2); Basophils % 0.5 % (0.1-2.0); Eosinophils # 0.2 K/mm3 (0.0-0.4); Eosinophils % 1.3 % (0.1-12.0); Hematocrit 45.7 % (37.0-47.0); Hemoglobin 14.8 g/dL (12.2-16.2); Lymphocytes # 2.9 K/mm3 (0.7-4.5); Mean Corpuscular HGB Conc 32.5 g/dL (31.8-35.4); Mean Corpuscular Hemoglobin 28.7 pg (27.0-31.2); Mean Corpuscular Volume 88.3 fl (81-99); Mean Platelet Volume 9.1 fl (7.4-10.4); Monocytes # 1.1 K/mm3 (0.1-1.0); Monocytes % 6.9 % (1.7-9.3); Neutrophils # 11.9 K/mm3 (1.8-7.8); Neutrophils % 73.2 % (37.0-80.0); Platelet Count 194 K/mm3 (142-424); Red Blood Count 5.18 M/mm3 (4.20-5.40); Red Cell Distribution Width 12.8 % (11.5-17.5); White Blood Count 16.2 K/mm3 (4.8-10.8)
[2020-10-04 06:19] LABS: MANUAL DIFFERENTIAL MANUAL DIFFERENTIAL (MANUAL DIFF)
[2020-10-04 06:21] LABS: Alanine Aminotransferase 11 U/L (12-78); Albumin Level 3.6 g/dl (3.5-5.0); Albumin/Globulin Ratio 1.4 (1.1-1.8); Alkaline Phosphatase 68 U/L (38-126); Anion Gap 5.1 mEq/L (5-15); Aspartate Amino Transferase 18 U/L (14-36); Bilirubin,Total 0.3 mg/dl (0.2-1.3); Blood Urea Nitrogen 4 mg/dl (7-17); Calcium 8.3 mg/dl (8.4-10.2); Chloride 99 mmol/L (98-107); Creatinine Clearance Estimated 137 mL/min (50-200); Estimated Glomerular Filt Rate 126 ml/min (>60); GFR (African American) 153 ML/MIN (>60); Globulin 2.6 g/dL (1.3-3.2); Glucose 97 mg/dl (74-100); Magnesium 1.5 mg/dl (1.6-2.3); Potassium 3.1 mmoL/L (3.5-5.1); Sodium 141 mmol/L (136-145); Total Protein,Serum 6.2 g/dl (6.3-8.2)
[2020-10-04 06:33] LABS: Carbon Dioxide 40 mmol/L (22.0-30.0)
[2020-10-04 07:56] LABS: Adenovirus F 40/41, stool Not Detected (NotDetected); Astrovirus Not Detected (NotDetected); Campylobacter Not Detected (NotDetected); Clostridium Difficile A/B, PCR Not Detected (NotDetected); Cryptosporidium Not Detected (NotDetected); Cyclospora Cayetanesis Not Detected (NotDetected); Entamoeba histolytica Not Detected (NotDetected); Enteroaggregative E coli Not Detected (NotDetected); Enteropathogenic E coli Not Detected (NotDetected); Enterotoxigenic E coli Not Detected (NotDetected); Giardia lamblia Not Detected (NotDetected); Norovirus Not Detected (NotDetected); Plesimonas Shigalloides, PCR Not Detected (NotDetected); Rotavirus A Not Detected (NotDetected); Salmonella, PCR Not Detected (NotDetected); Sapovirus Not Detected (NotDetected); Shiga-like toxin E coli Not Detected (NotDetected); Shigella Enterovasive E coli Not Detected (NotDetected); Vibrio Cholerae Not Detected (NotDetected); Vibrio, PCR Not Detected (NotDetected); Yersinia Entercolitica, PCR Not Detected (NotDetected)
--- NOTE | 2020-10-04 08:19 | HMH.ACPN2 ---
Internal Medicine - PN: Subj *Date: 10/04/20 *Time: 08:19 Interval history: Patient is sleeping, when awakened is alert, pleasant. States that she feels better than yesterday. Exam Vital signs and Labs for Last 24 Hours: Temp Pulse Resp BP Pulse Ox 97.9 F 93 H 18 144/74 H 96 10/04/20 04:00 10/04/20 04:00 10/04/20 04:00 10/04/20 04:00 10/04/20 04:00 Laboratory Results - last 24 hr 10/03/20 18:20: Hgb 14.3, Hct 44.1 10/03/20 18:20: ESR 7 10/03/20 18:20: C-Reactive Protein 50.7 H 10/04/20 05:27: WBC 16.2 H, RBC 5.18, Hgb 14.8, Hct 45.7, MCV 88.3, MCH 28.7, MCHC 32.5, RDW 12.8, Plt Count 194, MPV 9.1, Neut % (Auto) 73.2, Lymph % (Auto) 18.0, [place] % (Auto) 6.9, Eos % (Auto) 1.3, Baso % (Auto) 0.5, Neut # (Auto) 11.9 H, Lymph # (Auto) 2.9, [place] # (Auto) 1.1 H, Eos # (Auto) 0.2, Baso # (Auto) 0.1 10/04/20 05:27: Sodium 141, Potassium 3.1 L, Chloride 99, Carbon Dioxide 40 H, Anion Gap 5.1, BUN 4 L D, Creatinine 0.50 L, Estimated Creat Clear 137, Estimated GFR 126, Est GFR ( Amer) 153, Glucose 97, Calcium 8.3 L, Magnesium 1.5 L, Total Bilirubin 0.3, AST 18, ALT 11 L D, Alkaline Phosphatase 68, Total Protein 6.2 L, Albumin 3.6, Globulin 2.6, Albumin/Globulin Ratio 1.4 I & O for Last 24 hours: Intake & Output 10/01/20 10/02/20 10/03/20 10/04/20 11:59 11:59 11:59 11:59 Intake Total 1583 / 1583 2140 / 2140 Balance 1583 / 1583 2140 / 2140 Weight 158 lb Microbiology Reports for the Last 24 Hours: Microbiology 10/02/20 15:22 Blood Blood Culture - Preliminary 10/02/20 15:22 Blood Blood Culture - Preliminary Narrative: Oropharynx clear, no JVD. Lungs have good air movement. Heart rate regular. Abdomen soft, very minimal tenderness in the left lower quadrant but vastly improved vis-?-vis previous documentation. No rebound or guarding. No cyanosis or edema in her extremities. Neurologically intact. Assessment and Plan (1) Colitis Status: Acute Category: Medical Code(s): K52.9 - Noninfective gastroenteritis and colitis, unspecified (2) Intractable nausea and vomiting Status: Acute Category: Medical Code(s): R11.2 - Nausea with vomiting, unspecified (3) Sepsis Status: Acute Qualifiers: Sepsis type: sepsis due to unspecified organism Sepsis acute organ dysfunction status: without acute organ dysfunction Qualified Code(s): A41.9 - Sepsis, unspecified organism Category: Medical Code(s): A41.9 - Sepsis, unspecified organism (4) Hypokalemia Status: Acute Category: Medical Code(s): E87.6 - Hypokalemia (5) COPD (chronic obstructive pulmonary disease) Status: Chronic Qualifiers: COPD type: emphysema Category: Medical Code(s): J44.9 - Chronic obstructive pulmonary disease, unspecified (6) Hypertension Status: Chronic Category: Medical Code(s): I10 - Essential (primary) hypertension - Assessment and plan all Dx Assessment and Plan for all problems:: Continue to replace electrolytes given her significant hypokalemia. Colitis bleeding seems to have improved and blood counts of stabilized. GI consultation today to establish care, significant concern about inflammatory bowel disease. Dietary recommendations per GI, once consultation is finished and electrolytes have stabilized and patient is on a diet can consider discharged home.
[2020-10-04 09:12] LABS: Eosinophils % 4 % (0-3); Lymphocytes % 15 % (10-50); Monocytes % 7 % (2-9); Neutrophils % 74 % (42-76); Platelet Estimate Normal; RBC Morphology Normal; Total Cells Counted 100
--- NOTE | 2020-10-04 10:13 | PC.NURSE ---
Addendum entered by Shanelle Salter RN 10/04/20 12:29: Received report from Dany @ [id number] Original Note: Pt down for colonoscopy @ this time
--- NOTE | 2020-10-04 10:59 | P.PN_ITS ---
[facility] Anesthesia Checklist - Patient Identification Patient Identification: Arm Band - Structural Data Admitted From: Inpatient Planned Operative Procedure/s: Colonoscopy Consent for Planned Operative Procedure(s) Verified: Yes - NPO Status Verified Time NPO: 00:00 - Airway Assessment C-Spine Mobility Assessed: Yes TMJ Mobility Assessed: Yes Dentition: Poor Dentition - Neurological Assessment Level of Consciousness: Awake Hx Seizures: No Numbness or tingling in extremities: No - Anesthesia Plan Anesthesia Risk discussed: Yes Anesthesia Plan: Verified ASA Class: III Anesthesia Type: MAC [facility] History I have reviewed the patient's past medical history: Yes Medical History: Reports:: Chronic Obstructive Pulmonary Disease (COPD), Hypertension Denies:: Cancer, Diabetes Mellitus Type 1, Diabetes Mellitus Type 2, MRSA *Have you ever received a pneumonia vaccine?: No *Have you received a flu vaccine this season?: No Other Medical History: Reports: Other (chronic neck and back pain due to DJD/DDD) Anesthesia experience/problems:: None Laterality Cases: Bilateral: Tonsillectomy Other Surgeries: Yes: Appendectomy, Cholecystectomy, Colonoscopy, Hysterectomy- Total, Tubal Ligation Amputation: No Fractures: Yes (Bilat pinky toes) - *Social History Smoking Status: Former smoker Tobacco Type: cigarettes # Packs/Day (cigarettes): 3 #Yrs smoked (if former smoker): 44 Alcohol Intake: never Substance Use Type: denies use *Occupational Status:: disabled Housing: apartment Household Members: children *Travel in the last 8 weeks: None Family Hx:: Cancer
--- NOTE | 2020-10-04 12:05 | HMH.PROC ---
[facility] Procedure Note Procedure Note:: Colonoscopy Procedure Report: Colonoscopy with cold biopsies Endoscopist: Dario Minor II, MD Referring physician: Gosia Macdonald DO/Cedric Bermeo MD Date of Procedure: October 04, 2020 Equipment: Olympus 190 variable stiffness pediatric colonoscope Sedation: MAC sedation Indication: Mrs. Aviles is a 60-year-old female with the abrupt onset of severe lower abdominal pain followed by bloody stools. The patient generally has some chronic constipation. She initially had trouble having a bowel movement and developed diaphoresis and near syncope. She then passed a marked amount of bright red blood and developed some diarrhea. She did have a colonoscopy 7 months ago at [facility] (Dr. Rodriguez Larios) 7 to 9 months ago. The patient came to the emergency department. Her PCR GI panel was negative. Her initial hemoglobin was 18.3 with hemoglobin 18.0. Her subsequent hemoglobin declined down to 15.[address] scan of the abdomen (CTA) showed mild thickening of the calzada of the descending and sigmoid colon consistent with mild colitis. There was possible thrombosis in the left ovarian vein. Procedure: Prior to the procedure, a history and physical exam was performed, and patient's medications and allergies were reviewed. The risks, benefits and alternatives of the sedation and procedure were discussed with the patient. All questions were answered and informed consent was obtained. The patient was brought to the procedure room. Patient identification and proposed procedure were verified by the physician and the nurse. The patient was placed in a left lateral decubitus position and the scope was passed under direct vision. Throughout the procedure, the patient's blood pressure, pulse, and oxygen saturations were monitored continuously. The colonoscopy was accomplished without difficulty. The patient tolerated the procedure well. Findings: On digital rectal examination there was normal rectal tone. There were no external hemorrhoids. The colonoscope was introduced through the anal canal to the rectum and advanced to the cecum. The ileocecal valve and appendiceal orifice were identified. The scope was advanced a short distance into the ileum which appeared grossly normal. The scope was then withdrawn into the colon. The cecum, ascending and transverse colon and mucosa were grossly normal. There was a normal vascular pattern and normal mucosa. Within the descending colon at 45 cm from the pectinate line to the rectosigmoid at 20 cm from the pectinate line was evidence of mucosal surface edema, ulceration and patchy eschar. This regional colitis within the watershed region is highly characteristic of moderate ischemic colitis. Multiple biopsies were obtained. There were a few diverticuli in the left colon. The rectum itself was normal. Upon retroflexion within the rectum there were grade 1-2 internal hemorrhoids. The preparation was excellent throughout with Colonia Preparation Score of 9. The cecal time was 12 minutes. Impression: 1. Moderate ischemic colitis (watershed region of colon descending/sigmoid (from 20 cm to 45 cm from pectinate line)) Plan: Ischemic colitis is not atherosclerotic in the left colon but rather perfusion and usually occurs in the setting of dehydration/volume depletion. It is also 3 times more common in persons with constipation or IBS constipation. It is self-limited and involves the mucosa but not the submucosa. I would recommend low residue diet, probiotic and antispasmodic (as needed). We can begin to advance the diet. I will follow-up the biopsies. I will discuss the findings with the patient and family.
--- NOTE | 2020-10-04 15:39 | PC.NURSE ---
Pt back to floor from @ 1255. VSS. Remains on baseline 2 L O2 per nasal cannula. Lungs CTA. HR regular. Abdomen soft, tender w/ active BS in all quads. Pt continent of bowels, BM's watery d/t bowel prep for scope this AM. Pt has had no bloody stools this shift. Voiding per BSC w/o difficulty. Skin intact. Transfers back and forth to BS w/o safety concerns. Pt has been medicated per JUL x1 for abdominal pain. Is currently resting in bed, no needs voiced. Call rachel w/in reach.
[2020-10-05] VITALS (10 sets, daily range): BP systolic 98–143; BP diastolic 58–88; PULSE 73–104; RESP 17–20; TEMP 36.6–36.8; O2SAT 91–97; BMI 26.5
--- NOTE | 2020-10-05 03:22 | PC.NURSE ---
Pt is c/o abdminal pain this AM. Describes it as pressure. Pt medicated per jul. She has been up to C this shift. Has had 2 small stools. No blood noted. VSS. Pt remains on 2L O2 NC. Lungs are diminished. BS active. Will continue to monitor.
[2020-10-05 06:39] LABS: Basophils # 0.1 K/mm3 (0-0.2); Basophils % 0.7 % (0.1-2.0); Eosinophils # 0.3 K/mm3 (0.0-0.4); Eosinophils % 3.2 % (0.1-12.0); Hemoglobin 13.3 g/dL (12.2-16.2); Lymphocytes # 2.2 K/mm3 (0.7-4.5); Lymphocytes % 26.8 % (10-50); Mean Corpuscular HGB Conc 32.4 g/dL (31.8-35.4); Mean Corpuscular Hemoglobin 28.5 pg (27.0-31.2); Mean Corpuscular Volume 88.1 fl (81-99); Mean Platelet Volume 8.8 fl (7.4-10.4); Monocytes # 0.6 K/mm3 (0.1-1.0); Monocytes % 7.1 % (1.7-9.3); Neutrophils # 5.2 K/mm3 (1.8-7.8); Neutrophils % 62.3 % (37.0-80.0); Platelet Count 157 K/mm3 (142-424); Red Blood Count 4.65 M/mm3 (4.20-5.40); Red Cell Distribution Width 12.8 % (11.5-17.5); White Blood Count 8.3 K/mm3 (4.8-10.8)
[2020-10-05 06:55] LABS: Alanine Aminotransferase 8 U/L (12-78); Albumin Level 2.8 g/dl (3.5-5.0); Albumin/Globulin Ratio 1.2 (1.1-1.8); Alkaline Phosphatase 53 U/L (38-126); Anion Gap 2.3 mEq/L (5-15); Aspartate Amino Transferase 17 U/L (14-36); Bilirubin,Total 0.3 mg/dl (0.2-1.3); Calcium 7.9 mg/dl (8.4-10.2); Chloride 102 mmol/L (98-107); Creatinine Clearance Estimated 173 mL/min (50-200); Estimated Glomerular Filt Rate 163 ml/min (>60); GFR (African American) 198 ML/MIN (>60); Globulin 2.3 g/dL (1.3-3.2); Glucose 111 mg/dl (74-100); Potassium 3.3 mmoL/L (3.5-5.1); Sodium 141 mmol/L (136-145); Total Protein,Serum 5.1 g/dl (6.3-8.2)
[2020-10-05 07:40] LABS: Blood Urea Nitrogen < 2 mg/dl (7-17); Carbon Dioxide 40 mmol/L (22.0-30.0)
--- NOTE | 2020-10-05 15:15 | HMH.ACPN2 ---
Internal Medicine - PN: Subj *Date: 10/05/20 *Time: 15:15 Interval history: Ms. Vargas continue to have some abdominal pain overnight. GI diagnosed ischemic colitis yesterday. Stools improving with no significant bleeding, mainly just blood-tinged bowel output. Tolerating increase in p.o. intake, still liquid diet however. Stable oxygen requirement. Of note, review of microbiology has shown blood cultures being positive for gram-positive cocci. As it is 2 bottles, cannot disregard as contaminant. Continue IV antibiotics at this time. Discussed this with the patient this morning. Denies chest pain, nausea or vomiting, headache, confusion. No fevers overnight. Feeling marginally better today per her report. Exam Vital signs and Labs for Last 24 Hours: Temp Pulse Resp BP Pulse Ox 98.3 F 75 17 101/64 L 95 10/05/20 14:58 10/05/20 14:58 10/05/20 14:58 10/05/20 14:58 10/05/20 14:58 Laboratory Results - last 24 hr 10/05/20 05:30: WBC 8.3 D, RBC 4.65, Hgb 13.3, Hct 41.0, MCV 88.1, MCH 28.5, MCHC 32.4, RDW 12.8, Plt Count 157, MPV 8.8, Neut % (Auto) 62.3, Lymph % (Auto) 26.8, [place] % (Auto) 7.1, Eos % (Auto) 3.2, Baso % (Auto) 0.7, Neut # (Auto) 5.2, Lymph # (Auto) 2.2, [place] # (Auto) 0.6, Eos # (Auto) 0.3, Baso # (Auto) 0.1 10/05/20 05:30: Sodium 141, Potassium 3.3 L, Chloride 102, Carbon Dioxide 40 H, Anion Gap 2.3 L, BUN < 2 L D, Creatinine 0.40 L, Estimated Creat Clear 173, Estimated GFR 163, Est GFR ( Amer) 198 D, Glucose 111 H, Calcium 7.9 L, Total Bilirubin 0.3, AST 17, ALT 8 L D, Alkaline Phosphatase 53, Total Protein 5.1 L, Albumin 2.8 L D, Globulin 2.3, Albumin/Globulin Ratio 1.2 I & O for Last 24 hours: Intake & Output 10/02/20 10/03/20 10/04/20 10/05/20 23:59 23:59 23:59 23:59 Intake Total 3723 / 3723 1219 / 1219 2470 / 2470 Output Total 1150 / 1150 600 / 600 Balance 3723 / 3723 69 / 69 1870 / 1870 Weight 71.668 kg 72.348 kg Microbiology Reports for the Last 24 Hours: Microbiology 10/02/20 15:22 Blood Blood Culture - Preliminary Gram Positive Cocci Narrative: - Constitutional mild distress, average body habitus, chronically ill appearing, stable on baseline O2 requirement 2L - *Routine HEENT Exam Head: Present: normocephalic Eye: Present: EOMI, PERRL ENT: Present: mucous membranes moist - *Routine Neck Exam Present: supple. Absent: lymphadenopathy - *Routine Respiratory Exam Present: prolonged expiratory phase, wheezes. Absent: rhonchi, crackles - *Routine Cardiovascular Exam Present: RRR - *Routine Abdominal Exam Present: soft, normoactive bowel sounds, tenderness ( intervally improved, mainly left upper and lower quadrant.). Absent: distended, rebound - *Routine Extremities Exam Absent: cyanosis, clubbing, edema - *Routine Skin Exam Present: warm. Absent: rash - *Routine Neurological Exam Present: alert, oriented X3 Assessment and Plan (1) Colitis Status: Acute Category: Medical Code(s): K52.9 - Noninfective gastroenteritis and colitis, unspecified ischemic. (2) Intractable nausea and vomiting Status: Acute Category: Medical Code(s): R11.2 - Nausea with vomiting, unspecified (3) Sepsis Status: Acute Qualifiers: Sepsis type: sepsis due to unspecified organism Sepsis acute organ dysfunction status: without acute organ dysfunction Qualified Code(s): A41.9 - Sepsis, unspecified organism Category: Medical Code(s): A41.9 - Sepsis, unspecified organism (4) Hypokalemia Status: Acute Category: Medical Code(s): E87.6 - Hypokalemia (5) COPD (chronic obstructive pulmonary disease) Status: Chronic Qualifiers: COPD type: emphysema Category: Medical Code(s): J44.9 - Chronic obstructive pulmonary disease, unspecified (6) Hypertension Status: Chronic Category: Medical Code(s): I10 - Essential (primary) hypertension - Assessment and plan all Dx Assessment
--- NOTE | 2020-10-05 17:53 | PC.NURSE ---
Pt medicated per MAR for pain x3 this shift. Pt did have an episode of nausea that she said happened all of a sudden . She reported that she did vomit, this was not visualized by staff. Was medicated w/ zofran w/ relief noted. Has ate a minimal amount from her trays, stating her appetite has not came back. Remains on 2 L O2 per nasal cannula w/ no s/s of resp distress. HR regular. Abdomen soft, tender w/ active BS. Pt has had multiple small stools this shift. Voiding w/o difficulty. Independent w/ adl's. Pt bathed on side of bed, linens changed. Is currently sitting on side of bed eating supper. Call ramos w/in reach. No needs voiced @ this time. Stool sent to lab for calprotectin and lactoferrin this afternoon.
[2020-10-06 04:00] VITALS: BP 139/80; PULSE 103; RESP 22; TEMP 36.6; O2SAT 95
--- NOTE | 2020-10-06 04:37 | PC.NURSE ---
Pt continues to have abdominal discomfort. Describes it as pressure. Pain medication administered. Has been up to BSC. She states she has not had any significant BM. She wants the pain to stop. VS have remained stable. Pt remains on 2L O2 NC. Lungs are diminished. BS active. Medications administered per mar. No other concerns. Will continue to monitor.
[2020-10-06 05:12] VITALS: BMI 27.0
[2020-10-06 06:36] LABS: Basophils % 0.6 % (0.1-2.0); Eosinophils # 0.3 K/mm3 (0.0-0.4); Eosinophils % 4.6 % (0.1-12.0); Hematocrit 44.4 % (37.0-47.0); Hemoglobin 14.2 g/dL (12.2-16.2); Lymphocytes # 2.1 K/mm3 (0.7-4.5); Lymphocytes % 30.4 % (10-50); Mean Corpuscular Hemoglobin 28.5 pg (27.0-31.2); Mean Corpuscular Volume 89.1 fl (81-99); Mean Platelet Volume 8.3 fl (7.4-10.4); Monocytes # 0.6 K/mm3 (0.1-1.0); Monocytes % 8.5 % (1.7-9.3); Neutrophils # 3.9 K/mm3 (1.8-7.8); Neutrophils % 55.9 % (37.0-80.0); Platelet Count 195 K/mm3 (142-424); Red Blood Count 4.98 M/mm3 (4.20-5.40); Red Cell Distribution Width 12.8 % (11.5-17.5)
[2020-10-06 07:01] LABS: Alanine Aminotransferase 8 U/L (12-78); Albumin Level 3.4 g/dl (3.5-5.0); Albumin/Globulin Ratio 1.5 (1.1-1.8); Alkaline Phosphatase 53 U/L (38-126); Aspartate Amino Transferase 18 U/L (14-36); Bilirubin,Total 0.2 mg/dl (0.2-1.3); Calcium 8.4 mg/dl (8.4-10.2); Chloride 101 mmol/L (98-107); Creatinine Clearance Estimated 141 mL/min (50-200); Estimated Glomerular Filt Rate 126 ml/min (>60); GFR (African American) 153 ML/MIN (>60); Globulin 2.3 g/dL (1.3-3.2); Glucose 85 mg/dl (74-100); Magnesium 1.5 mg/dl (1.6-2.3); Potassium 3.7 mmoL/L (3.5-5.1); Sodium 144 mmol/L (136-145); Total Protein,Serum 5.7 g/dl (6.3-8.2)
[2020-10-06 07:07] LABS: Anion Gap 7.7 mEq/L (5-15); Blood Urea Nitrogen < 2 mg/dl (7-17); Carbon Dioxide 39 mmol/L (22.0-30.0)
[2020-10-06 08:00] VITALS: BP 131/79; PULSE 97; RESP 18; TEMP 36.9; O2SAT 96
--- NOTE | 2020-10-06 08:09 | CT_ITS ---
PROCEDURE: CT ABDOMEN PELVIS WO/W CON CLINICAL INDICATION: RUQ pain - colitis COMPARISON: CT CT ABDOMEN PELVIS W CON from 02/18/[address] ANGIO ABDOMEN PELVIS from 10/02/2020 TECHNIQUE: IV Contrast: 75ML Isovue 370 Oral Contrast None Axial images obtained with sagittal and coronal reformats. All CT scans at the facility use one or more dose reduction, viz: automated exposure control, ma/kV adjustment per patient size (including targeted exams where dose is matched to indication, i.e. head), or iterative reconstruction technique. FINDINGS: LOWER THORAX: The visualized lung bases are clear. HEPATOBILIARY: Focal hypodense lesion is noted in the liver measuring 1 centimeter, most likely represent cysts. Focal lesion in the segment 4B of the liver, demonstrates no significant interval change compared to prior study. These are most likely to represent cysts. No intra or extrahepatic biliary dilation. No other focal liver lesions. Cholecystectomy is noted.. PANCREAS: No evidence of pancreatic masses or ductal dilation SPLEEN:No splenomegaly ADRENALS:Normal KIDNEYS/URETERS/BLADDER: No hydronephrosis, calculi or focal solid mass lesions. The visualized bladder is unremarkable. PERITONEUM / RETROPERITONEUM: No free fluid or free intraperitoneal air is noted. LYMPH NODES: No significant retroperitoneal or mesenteric lymphadenopathy. GI TRACT: There is a long segment wall thickening of the descending colon extending from the splenic flexure and extends into the sigmoid colon. Loss of normal haustration is a noted. Pericolonic inflammatory stranding is noted. The ascending and transverse colon is unremarkable. Appendix. The appendix is not visualized although no secondary signs of appendicitis are noted. VASCULAR: Atherosclerotic vascular calcification of the abdominal aorta and its branches. ABDOMINAL WALL: Small anterior abdominal wall fat containing hernia. SOFT TISSUES: Unremarkable BONES: Visualized osseous structures are unremarkable. IMPRESSION: Findings are suggestive of descending and sigmoid colitis. No free fluid or free intraperitoneal air. Other minor chronic findings as described above. Dictated by: Ashleigh Wynn 10/06/2020 12:58 Ashleigh Wynn in OV 10/06/2020 12:58
--- NOTE | 2020-10-06 08:10 | HMH.ACPN2 ---
Internal Medicine - PN: Subj *Date: 10/06/20 *Time: 08:10 Interval history: Overnight patient seemed to do fairly well, when I made rounds this morning she was in the middle of having a bowel movement which was dark brown liquid stool without evidence of blood but patient noticed that she had a lot of increased pain up in the right flank and right upper quadrant. No nausea or vomiting. No fevers. Exam Vital signs and Labs for Last 24 Hours: Temp Pulse Resp BP Pulse Ox 97.8 F 103 H 22 139/80 95 10/06/20 04:00 10/06/20 04:00 10/06/20 04:00 10/06/20 04:00 10/06/20 04:00 Laboratory Results - last 24 hr 10/06/20 05:39: WBC 7.0, RBC 4.98, Hgb 14.2, Hct 44.4, MCV 89.1, MCH 28.5, MCHC 32.0, RDW 12.8, Plt Count 195, MPV 8.3, Neut % (Auto) 55.9, Lymph % (Auto) 30.4, [place] % (Auto) 8.5, Eos % (Auto) 4.6, Baso % (Auto) 0.6, Neut # (Auto) 3.9, Lymph # (Auto) 2.1, [place] # (Auto) 0.6, Eos # (Auto) 0.3, Baso # (Auto) 0.0 10/06/20 05:39: Sodium 144, Potassium 3.7, Chloride 101, Carbon Dioxide 39 H, Anion Gap 7.7, BUN < 2 L, Creatinine 0.50 L D, Estimated Creat Clear 141, Estimated GFR 126, Est GFR ( Amer) 153 D, Glucose 85, Calcium 8.4, Magnesium 1.5 L, Total Bilirubin 0.2, AST 18, ALT 8 L, Alkaline Phosphatase 53, Total Protein 5.7 L, Albumin 3.4 L D, Globulin 2.3, Albumin/Globulin Ratio 1.5 I & O for Last 24 hours: Intake & Output 10/03/20 10/04/20 10/05/20 10/06/20 11:59 11:59 11:59 11:59 Intake Total 1583 / 1583 2140 / 2140 3329 / 3329 1387 / 1387 Output Total 1750 / 1750 Balance 1583 / 1583 2140 / 2140 1579 / 1579 1387 / 1387 Weight 158 lb 159 lb 8 oz 162 lb 4 oz Microbiology Reports for the Last 24 Hours: Microbiology 10/02/20 15:22 Blood Blood Culture - Preliminary Gram Positive Cocci Narrative: Patient is alert, pleasant, does state that she does not feel well. Breathing easily. Heart rate regular. Abdomen is soft with normal bowel sounds but she has significant pain behaviors and tenderness in the right upper quadrant and the right middle flank area. No rebound or guarding. No distal edema or clubbing. Neurologically she is intact Assessment and Plan (1) Colitis Status: Acute Category: Medical Code(s): K52.9 - Noninfective gastroenteritis and colitis, unspecified (2) Intractable nausea and vomiting Status: Acute Category: Medical Code(s): R11.2 - Nausea with vomiting, unspecified (3) Sepsis Status: Acute Qualifiers: Sepsis type: sepsis due to unspecified organism Sepsis acute organ dysfunction status: without acute organ dysfunction Qualified Code(s): A41.9 - Sepsis, unspecified organism Category: Medical Code(s): A41.9 - Sepsis, unspecified organism (4) Hypokalemia Status: Acute Category: Medical Code(s): E87.6 - Hypokalemia (5) COPD (chronic obstructive pulmonary disease) Status: Chronic Qualifiers: COPD type: emphysema Category: Medical Code(s): J44.9 - Chronic obstructive pulmonary disease, unspecified (6) Hypertension Status: Chronic Category: Medical Code(s): I10 - Essential (primary) hypertension - Assessment and plan all Dx Assessment and Plan for all problems:: Given her history of colitis and possible ischemic bowel on colonoscopy I will rescan patient today. Labs look a little better. Microbiologic testing is still pending. If CT scan is nondiagnostic or improving and blood cultures are negative on repeat would consider discharge tomorrow with p.o. medication.
--- NOTE | 2020-10-06 14:17 | DIET.NUTRFU ---
Pt remains with severe abd. pain. States she has only been able to have minimal PO intake. She does not report greater/different pain after meals, states that it is constant. Continues with liquid BMs, no blood evident. Recommend continuing full liquids and advancing to low residue diet as tolerated, continuing to monitor.
[2020-10-06 15:39] VITALS: BP 113/64; PULSE 70; RESP 18; TEMP 36.9; O2SAT 97
--- NOTE | 2020-10-06 17:06 | PC.NURSE ---
spoke to Dr. Barrios. He ordered to restart low residue diet. He also ordered Solumedrol 125mg IV NOW x 1 dose, then 80mg Q8hrs. Order faxed to pharmacy.
--- NOTE | 2020-10-06 18:23 | PC.NURSE ---
pt's daughter @ BS. Pt wants daughter to take her jewelry (2 rings and a pair of earrings) home with her. These belonging are locked in the drawer. I retrieved them and gave them to the pt, who then gave them to her daughter. Pt is A&O.
[2020-10-06 19:19] VITALS: O2SAT 95
[2020-10-06 20:00] VITALS: BP 104/60; PULSE 64; RESP 16; TEMP 36.9; O2SAT 94
[2020-10-06 20:01] VITALS: O2SAT 95
--- NOTE | 2020-10-07 01:21 | PC.NURSE ---
She received PRN pain medication for abdominal pain. She continues on 2LPM n/c.
[2020-10-07 04:00] VITALS: BP 132/87; PULSE 86; RESP 18; TEMP 36.6; O2SAT 94
[2020-10-07 05:08] VITALS: BMI 28.0
[2020-10-07 05:46] LABS: Basophils % 0.1 % (0.1-2.0); Eosinophils % 0.2 % (0.1-12.0); Hematocrit 43.1 % (37.0-47.0); Hemoglobin 13.9 g/dL (12.2-16.2); Lymphocytes # 0.9 K/mm3 (0.7-4.5); Lymphocytes % 14.3 % (10-50); Mean Corpuscular HGB Conc 32.3 g/dL (31.8-35.4); Mean Corpuscular Hemoglobin 28.3 pg (27.0-31.2); Mean Corpuscular Volume 87.6 fl (81-99); Mean Platelet Volume 8.3 fl (7.4-10.4); Monocytes # 0.1 K/mm3 (0.1-1.0); Monocytes % 2.2 % (1.7-9.3); Neutrophils # 5.2 K/mm3 (1.8-7.8); Neutrophils % 83.2 % (37.0-80.0); Platelet Count 204 K/mm3 (142-424); Red Blood Count 4.92 M/mm3 (4.20-5.40); Red Cell Distribution Width 12.9 % (11.5-17.5); White Blood Count 6.3 K/mm3 (4.8-10.8)
[2020-10-07 05:52] LABS: Alanine Aminotransferase 10 U/L (12-78); Albumin Level 3.1 g/dl (3.5-5.0); Albumin/Globulin Ratio 1.3 (1.1-1.8); Alkaline Phosphatase 47 U/L (38-126); Anion Gap 4.2 mEq/L (5-15); Aspartate Amino Transferase 15 U/L (14-36); Bilirubin,Total 0.3 mg/dl (0.2-1.3); Calcium 8.1 mg/dl (8.4-10.2); Carbon Dioxide 39 mmol/L (22.0-30.0); Chloride 102 mmol/L (98-107); Creatinine Clearance Estimated 146 mL/min (50-200); Estimated Glomerular Filt Rate 126 ml/min (>60); GFR (African American) 153 ML/MIN (>60); Globulin 2.3 g/dL (1.3-3.2); Glucose 188 mg/dl (74-100); Potassium 4.2 mmoL/L (3.5-5.1); Sodium 141 mmol/L (136-145); Total Protein,Serum 5.4 g/dl (6.3-8.2)
[2020-10-07 06:20] LABS: Blood Urea Nitrogen < 2 mg/dl (7-17)
[2020-10-07 07:51] VITALS: BP 132/81; PULSE 91; RESP 16; TEMP 36.6; O2SAT 96
--- NOTE | 2020-10-07 08:28 | HMH.DCSUM ---
General - General Admission date:: 10/02/20 Discharge date: 10/07/20 HPI HPI: 60-year-old female with emphysema on chronic oxygen therapy who presented to the ER yesterday after onset of abdominal cramping, pain, bloody stools. States she was at home got up to use the bathroom. Had some hard stool followed shortly by pain, sweating, bright red blood per rectum. Has since had abdominal pain, worse in left lower quadrant. Additionally still having small bloody stools with clots. Had some nausea and vomiting overnight. No isaias fever. No recent antibiotic exposure. Denies any trauma. Reports having had a colonoscopy few years ago at [facility] with no abnormal findings. No family history of inflammatory or autoimmune disorders. No history of C. difficile Admitted from the ER to medicine for further management. Continues to have pain this morning on assessment. Tolerating clear liquid diet. Sitting at bedside on interview, moderate distress. Hospital Course Hospital Course: Patient was admitted, placed on IV antibiotics for colitis and GI was consulted. Appreciate input. Endoscopy was done which revealed evidence of colitis in the sigmoid and descending colon which Dr. Minor felt was watershed ischemic colitis based on her hydration status and overall illness. Patient improved vis-?-vis blood in the stool and diarrhea. She had another episode of fairly intense right quadrant pain yesterday, CT scan revealed evidence of improving colitis, her labs improved with resolving leukocytosis and correction of her electrolyte abnormalities. She was given steroids, morphine and antibiotics for a couple of days and this seemed to do well for her. This morning she felt better, was eating fairly well. Plan will be to discharge home with p.o. steroids, p.o. antibiotics, short-term opiate therapy for her pain. We will follow her once in our office as she has moved out of [place] and is staying with her sister to make sure things have been established for follow-up and then get her back to her regular primary care physician in [place]. Of note she is significantly chronically ill from lung disease, and maintains a DNR status. If her lung condition deteriorates she is actually a reasonable candidate for hospice care and this may be something that will need to be addressed as an outpatient. Objective Vital signs: Temp Pulse Resp BP Pulse Ox 97.8 F 91 H 16 132/81 96 10/07/20 07:51 10/07/20 07:51 10/07/20 07:51 10/07/20 07:51 10/07/20 07:51 no acute distress - *Routine HEENT Exam Head: Present: normocephalic Eye: Present: EOMI, PERRL ENT: Present: mucous membranes moist - *Routine Neck Exam Present: supple - *Routine Respiratory Exam Present: prolonged expiratory phase, rhonchi - *Routine Cardiovascular Exam Present: RRR - *Routine Abdominal Exam Present: soft, normoactive bowel sounds. Absent: tenderness, distended, rebound - *Routine Rectal Exam Comments: Deferred - *Routine Exam Comments: Deferred - *Routine Extremities Exam Absent: cyanosis, clubbing, edema - *Routine Skin Exam Present: warm. Absent: rash - Detailed Eye Exam Eyelids: Bilateral normal inspection Results Labs on day of discharge: Labs from last 24 hours 10/07/20 10/07/20 05:30 05:30 WBC 6.3 RBC 4.92 Hgb 13.9 Hct 43.1 MCV 87.6 MCH 28.3 MCHC 32.3 RDW 12.9 Plt Count 204 MPV 8.3 Neut % (Auto) 83.2 H Lymph % (Auto) 14.3 [place] % (Auto) 2.2 Eos % (Auto) 0.2 Baso % (Auto) 0.1 Neut # (Auto) 5.2 Lymph # (Auto) 0.9 [place] # (Auto) 0.1 Eos # (Auto) 0.0 Baso # (Auto) 0.0 Sodium 141 Potassium 4.2 Chloride 102 Carbon Dioxide 39 H Anion Gap 4.2 L BUN < 2 L Creatinine 0.50 L Estimated Creat Clear 146 Estimated GFR 126 Est GFR ( Amer) 153 Glucose 188 H D Calcium 8.1 L Total Bilirubin 0.3 AST 15
[2020-10-07 16:00] VITALS: BP 126/77; PULSE 92; RESP 18; TEMP 36.7; O2SAT 91
[2020-10-10 10:34] LABS: Calprotectin, Fecal 231 ug/g (0-120)
[2020-10-13 20:16] LABS: Lactoferrin, Fecal, Quant. 12.05 ug/mL(g) (0.00-7.24)
== END 2020-10-07 17:07 | disposition home or self-care (01) | DRG 872 ==
LOC: ER 19:13 → 2ND 19:43
PROVIDERS: Internal Medicine Adolescent Medicine; Internal Medicine Gastroenterology; Admitting Provider Internal Medicine Adolescent Medicine; Emergency Provider Family Medicine; PCP Family Medicine; Visit Provider Internal Medicine Adolescent Medicine
PROC: 0DJD8ZZ Inspection of Lower Intestinal Tract, Via Natural or Artificial Opening Endoscopic (ICD-10-PCS; CPT 45378; principal; 2020-10-04 15:00)
DX: A41.9 Sepsis, unspecified organism (principal); K55.9 Vascular disorder of intestine, unspecified; J96.11 Chronic respiratory failure with hypoxia; Z99.81 Dependence on supplemental oxygen; I10 Essential (primary) hypertension; Z20.822 Contact with and (suspected) exposure to COVID-19; E87.6 Hypokalemia; Z88.0 Allergy status to penicillin; Z87.891 Personal history of nicotine dependence; M50.30 Other cervical disc degeneration, unspecified cervical region; M19.09 Primary osteoarthritis, other specified site; J43.9 Emphysema, unspecified; Z66 Do not resuscitate
CPT/HCPCS: 45380; 36415; 74174; 74178; 80048; 80053; 81001; 83605; 83630; 83690; 83735; 83993; 85007; 85014; 85018; 85025; 85651; 86140; 87040; 87045; 87077; 87186; 87507; 87581; 87633; 87798; 88305; 93005; 94640; 94760; 99283; J1956; J2405; J3370; Q9967

== ENCOUNTER → 2021-02-03 10:28 | Outpatient (CLI) | payer MEDICARE, SELFPAY ==
[2021-02-03 14:01] LABS: Anion Gap 12.5 mEq/L (5-15); Blood Urea Nitrogen 11 mg/dl (7-17); Calcium 8.5 mg/dl (8.4-10.2); Carbon Dioxide 29 mmol/L (22.0-30.0); Chloride 104 mmol/L (98-107); Estimated Glomerular Filt Rate 126 ml/min (>60); GFR (African American) 153 ML/MIN (>60); Glucose 111 mg/dl (74-100); Potassium 4.5 mmoL/L (3.5-5.1); Sodium 141 mmol/L (136-145)
== END ==
PROVIDERS: Visit Provider Family Medicine
DX: E87.6 Hypokalemia (principal)
CPT/HCPCS: 36415; 80048

== ENCOUNTER 2021-10-12 16:46 | Observation (INO) | payer MEDICARE, SELFPAY ==
[2021-10-12] VITALS (8 sets, daily range): BP systolic 101–133; BP diastolic 70–79; PULSE 66–115; RESP 16–22; TEMP 36.8–37.1; O2SAT 95–99; BMI 25.3; BMI 22.4
--- NOTE | 2021-10-12 16:51 | XR_ITS ---
PROCEDURE INFORMATION: Exam: XR Chest Exam date and time: 10/12/2021 5:01 PM Age: 61 years old Clinical indication: Shortness of breath; Additional info: SOB TECHNIQUE: Imaging protocol: XR of the chest. Views: 1 view. COMPARISON: CR XR CHEST PORTABLE 09/18/2020 2:05 PM FINDINGS: Lungs: Findings compatible with chronic obstructive pulmonary disease. No evidence of acute cardiopulmonary disease. Pleural spaces: Unremarkable. No pleural effusion. No pneumothorax. Heart/Mediastinum: Unremarkable. No cardiomegaly. Diaphragm: Hyperlucent changes are demonstrated. There is flattening of the hemidiaphragms. Increase in the lung volumes is demonstrated. Bones/joints: Chronic posttraumatic changes involving the right posterolateral 7th and 8th ribs. IMPRESSION: 1. Findings compatible with chronic obstructive pulmonary disease. 2. No evidence of acute cardiopulmonary disease.
--- NOTE | 2021-10-12 16:53 | ECG_ITS ---
APPROVED REPORT Exam: Resting ECG HR:88 bpm ECG Measurements Heart Rate 88 AXES IN 172 P 87 QRSd 88 QRS 95 QT 337 T 77 QTc 382 Conclusion SINUS RHYTHM BORDERLINE RIGHT AXIS DEVIATION [QRS AXIS > 90] BORDERLINE ECG UNCONFIRMED REPORT Electronically signed by : Case Barrios MD 10/13/2021 08:43:12
[2021-10-12 17:12] LABS: Alanine Aminotransferase 13 U/L (12-78); Albumin/Globulin Ratio 1.5 (1.1-1.8); Alkaline Phosphatase 46 U/L (38-126); Aspartate Amino Transferase 21 U/L (14-36); Bilirubin,Total 0.3 mg/dl (0.2-1.3); Blood Urea Nitrogen 11 mg/dl (7-17); Carbon Dioxide 38 mmol/L (22.0-30.0); Chloride 96 mmol/L (98-107); Creatinine Clearance Estimated 135 mL/min (50-200); Estimated Glomerular Filt Rate 126 ml/min (>60); GFR (African American) 152 ML/MIN (>60); Globulin 2.7 g/dL (1.3-3.2); Glucose 147 mg/dl (74-100); Sodium 138 mmol/L (136-145); Total Protein,Serum 6.7 g/dl (6.3-8.2)
[2021-10-12 17:17] LABS: Basophils # 0.2 K/mm3 (0-0.2); Basophils % 2.5 % (0.1-2.0); Eosinophils # 0.2 K/mm3 (0.0-0.4); Eosinophils % 2.6 % (0.1-12.0); Hematocrit 43.1 % (37.0-47.0); Hemoglobin 14.4 g/dL (12.2-16.2); Lymphocytes # 2.7 K/mm3 (0.7-4.5); Lymphocytes % 40.3 % (10-50); Mean Corpuscular HGB Conc 33.4 g/dL (31.8-35.4); Mean Corpuscular Hemoglobin 30.2 pg (27.0-31.2); Mean Corpuscular Volume 90.5 fl (81-99); Mean Platelet Volume 8.8 fl (7.4-10.4); Monocytes # 0.4 K/mm3 (0.1-1.0); Monocytes % 5.6 % (1.7-9.3); Neutrophils # 3.3 K/mm3 (1.8-7.8); Neutrophils % 48.9 % (37.0-80.0); Platelet Count 253 K/mm3 (142-424); Red Blood Count 4.77 M/mm3 (4.20-5.40); Red Cell Distribution Width 13.8 % (11.5-17.5); White Blood Count 6.7 K/mm3 (4.8-10.8)
[2021-10-12 17:29] LABS: Troponin I < 0.01 ng/ml (0.00-0.034)
[2021-10-12 18:14] LABS: D-Dimer 0.44 ug/mL (0.0-0.5)
[2021-10-12 18:19] LABS: NT Pro Brain Natriuretic Pep. 93.3 pg/mL (0-125)
[2021-10-12 18:48] LABS: Lactic Acid 0.9 mmol/L (0.7-2.1)
--- NOTE | 2021-10-12 19:00 | PC.NURSE ---
Pt resting in bed. no new needs at this time
--- NOTE | 2021-10-12 19:09 | CT_ITS ---
PROCEDURE INFORMATION: Exam: CT Abdomen And Pelvis With Contrast Exam date and time: 10/12/2021 7:44 PM Age: 61 years old Clinical indication: Constipation; Additional info: Unable to have bm TECHNIQUE: Imaging protocol: Computed tomography of the abdomen and pelvis with contrast. Radiation optimization: All CT scans at this facility use at least one of these dose optimization techniques: automated exposure control; mA and/or kV adjustment per patient size (includes targeted exams where dose is matched to clinical indication); or iterative reconstruction. Contrast material: ISOVUE; Contrast volume: 75 ml; Contrast route: IV; COMPARISON: CT ABDOMEN PELVIS WO/W CON 10/06/2020 11:55 AM FINDINGS: Liver: Previously demonstrated hepatic cyst located just beneath the hepatic dome is again demonstrated. Findings unchanged. Gallbladder and bile ducts: Status post cholecystectomy. Pancreas: Normal. No ductal dilation. Spleen: Scattered granulomas are demonstrated in the spleen. Adrenal glands: Normal. No mass. Kidneys and ureters: Normal. No hydronephrosis. Stomach and bowel: Extensive amount of retained stool throughout the colon. There is no evidence of obstruction. Appendix: No evidence of appendicitis. Intraperitoneal space: Unremarkable. No free air. No significant fluid collection. Vasculature: Scattered regions of atherosclerotic vascular calcification within the abdominal aorta and common iliac arteries. Lymph nodes: Unremarkable. No enlarged lymph nodes. Urinary bladder: Unremarkable as visualized. Reproductive: Unremarkable as visualized. Bones/joints: Unremarkable. No acute fracture. Soft tissues: Unremarkable. IMPRESSION: Extensive amount of retained stool throughout the colon. Findings compatible with fecal impaction. No evidence of obstruction.
--- NOTE | 2021-10-12 19:17 | HMH.EDGENADL ---
ED Disposition Clinical Impression: COPD exacerbation COPD (chronic obstructive pulmonary disease) Qualifiers: COPD type: unspecified COPD Qualified Code(s): J44.9 - Chronic obstructive pulmonary disease, unspecified Constipation Qualifiers: Constipation type: unspecified constipation type Qualified Code(s): K59.00 - Constipation, unspecified Disposition: Admitted As Inpatient Condition on Discharge: Undetermined Referrals: Gosia Macdonald [Primary Care Provider] - - Critical Care Critical Care Time: No Attestation: On 10/12/21, the high probability of a clinically significant, sudden or life threatening deterioration of the following system(s) required my full and direct attention, intervention and personal management. The time I documented below is in addition to time spent performing reported procedures but includes the following listed in this critical care notation. Medical Decision Making - Medical Records Medical records reviewed: Yes: I reviewed the patient's medical records. - Patel Inquiry Pt receiving controlled substance: No Vital Signs: 10/12/21 16:46 10/12/21 18:00 10/12/21 18:30 Temperature 98.7 F Temperature Source Oral Pulse Rate 115 H 88 Pulse Rate [Radial] 89 Respiratory Rate 22 20 16 Blood Pressure 115/79 101/70 L Blood Pressure [Right Arm] 104/72 L Blood Pressure Mean 91 80 Blood Pressure Mean [Right Arm] 82 Blood Pressure Position [Right Arm] Sitting 02 Sat by Pulse Oximetry 98 98 95 Oxygen Delivery Method Nasal Cannula Oxygen Flow Rate (LPM) 3 10/12/21 19:30 Temperature Temperature Source Pulse Rate 84 Pulse Rate [Radial] Respiratory Rate 18 Blood Pressure 108/73 L Blood Pressure [Right Arm] Blood Pressure Mean 83 Blood Pressure Mean [Right Arm] Blood Pressure Position [Right Arm] 02 Sat by Pulse Oximetry Oxygen Delivery Method Oxygen Flow Rate (LPM) - Lab Data Lab results reviewed: Yes: I reviewed the patient's lab results. Lab Results 10/12/21 16:56: WBC 6.7, RBC 4.77, Hgb 14.4, Hct 43.1, MCV 90.5, MCH 30.2, MCHC 33.4, RDW 13.8, Plt Count 253, MPV 8.8, Neut % (Auto) 48.9, Lymph % (Auto) 40.3, [place] % (Auto) 5.6, Eos % (Auto) 2.6, Baso % (Auto) 2.5 H, Neut # (Auto) 3.3, Lymph # (Auto) 2.7, [place] # (Auto) 0.4, Eos # (Auto) 0.2, Baso # (Auto) 0.2 10/12/21 16:56: Sodium 138, Potassium 4.0, Chloride 96 L, Carbon Dioxide 38 H, Anion Gap 8.0, BUN 11, Creatinine 0.50 L, Estimated Creat Clear 135, Estimated GFR 126, Est GFR ( Amer) 152, Glucose 147 H, Calcium 9.0, Total Bilirubin 0.3, AST 21, ALT 13, Alkaline Phosphatase 46, Troponin I < 0.01, Total Protein 6.7, Albumin 4.0, Globulin 2.7, Albumin/Globulin Ratio 1.5 10/12/21 16:56: D-Dimer 0.44 10/12/21 16:56: NT-Pro-B Natriuret Pep 93.3 10/12/21 18:28: Lactate 0.9 Result diagrams: 10/12/21 16:56 10/12/21 16:56 Orders (Tests/Meds): ED MEDICATIONS Generic Name Dose Route Start Last Admin Trade Name Freq PRN Reason Stop Dose Admin Dexamethasone Sodium Phosphate 10 mg 10/12/21 20:45 Dexamethasone 4mg/Ml 1ml Vial IV 11/11/21 20:44 DAILY KENNY Docusate Sodium 100 mg 10/12/21 21:19 Docusate Sodium 100 Mg Capsule PO 11/11/21 21:18 BIDP PRN Constipation Polyethylene Glycol 17 gm 10/13/21 09:00 Polyethylene Glycol 3350 17 Gm Packet PO 10/13/21 09:01 ONCE ONE Sodium Phosphate 133 ml 10/12/21 21:20 Fleet 133ml Enema RC 10/12/21 21:21 ONCE ONE Discontinued Medications Generic Name Dose Route Start Last Admin Trade Name Freq PRN Reason Stop Dose Admin Albuterol/Ipratropium 3 ml 10/12/21 17:50 10/12/21 17:51 Ipratropium/Albuterol 3 Ml [facility] 10/12/21 17:51 3 ml ONCE ONE Administration Albuterol/Ipratropium 3 ml 10/12/21 20:37 Ipratropium/Albuterol 3 Ml Neb 10/12/21 20:38 ONCE ONE Iopamidol 75 ml 10/12/21 20:19 10/12/21 20:20 Iopamidol-370 (76%);100ml Bottle IV 10/12/21 20:20 75 ml ONCE ONE
--- NOTE | 2021-10-12 21:13 | PC.NURSE ---
Dr. Sophie galindo
--- NOTE | 2021-10-12 21:14 | PC.NURSE ---
MD at bedside, discussing POC with pt
--- NOTE | 2021-10-12 21:16 | PC.NURSE ---
speaking with Dr. Barriso
--- NOTE | 2021-10-12 21:17 | PC.NURSE ---
Notified house of admission
[2021-10-12 21:21] LABS: Coronavirus 19, PCR Not Detected (NotDetected); Influenza A, PCR Not Detected (NotDetected); Influenza B, PCR Not Detected (NotDetected)
[2021-10-12 21:31] LABS: Troponin I < 0.01 ng/ml (0.00-0.034)
--- NOTE | 2021-10-12 21:57 | PC.NURSE ---
patient up to floor via wheelchair @ this time.
[2021-10-13] VITALS (8 sets, daily range): BP systolic 102–147; BP diastolic 59–86; PULSE 75–114; RESP 16–18; TEMP 36.7–36.8; O2SAT 94–96; BMI 22.4
--- NOTE | 2021-10-13 04:24 | PC.NURSE ---
pt has rested intermittently t/o shift, has had a small bowel movement this shift after administration of enema, has remained on 2 L NC with O2 sats 96-97%, no complaints of SOA this shift, has complained of abdominal pain related to needing to have bowel movement
[2021-10-13 07:23] LABS: Basophils % 0.3 % (0.1-2.0); Eosinophils % 0.3 % (0.1-12.0); Hematocrit 41.1 % (37.0-47.0); Hemoglobin 13.8 g/dL (12.2-16.2); Lymphocytes # 0.8 K/mm3 (0.7-4.5); Lymphocytes % 15.8 % (10-50); Mean Corpuscular HGB Conc 33.5 g/dL (31.8-35.4); Mean Corpuscular Hemoglobin 30.1 pg (27.0-31.2); Mean Corpuscular Volume 89.7 fl (81-99); Mean Platelet Volume 9.7 fl (7.4-10.4); Monocytes # 0.1 K/mm3 (0.1-1.0); Neutrophils # 4.3 K/mm3 (1.8-7.8); Neutrophils % 81.6 % (37.0-80.0); Platelet Count 229 K/mm3 (142-424); Red Blood Count 4.58 M/mm3 (4.20-5.40); Red Cell Distribution Width 13.6 % (11.5-17.5); White Blood Count 5.2 K/mm3 (4.8-10.8)
[2021-10-13 07:27] LABS: Anion Gap 8.8 mEq/L (5-15); Blood Urea Nitrogen 12 mg/dl (7-17); Carbon Dioxide 36 mmol/L (22.0-30.0); Chloride 96 mmol/L (98-107); Creatinine Clearance Estimated 150 mL/min (50-200); Estimated Glomerular Filt Rate 163 ml/min (>60); GFR (African American) 197 ML/MIN (>60); Glucose 148 mg/dl (74-100); Potassium 3.8 mmoL/L (3.5-5.1); Sodium 137 mmol/L (136-145)
--- NOTE | 2021-10-13 07:37 | HMH.HP ---
*Admission Date: 10/12/21 *Chief complaint: Congestion/shortness of air *History of present illness: 61-year-old white female with severe COPD, oxygen requiring, who lives at home with her sister, who has been very ill over the past couple of weeks with cough, congestion and shortness of air. Came to the emergency department where she was found to be a fairly significant COPD exacerbation, also noted to have hypokalemia. She has a long history of bowel disorders and notes that she is not had a good bowel movement for about a month, but last night finally had a good bowel movement felt little better. In the ER she was found to have tachycardia, dyspnea, hypoxia compared to her baseline and was admitted for COPD exacerbation. [facility] History I have reviewed the patient's past medical history: Yes Medical History: Reports:: Chronic Obstructive Pulmonary Disease (COPD), Hypertension Denies:: Cancer, Diabetes Mellitus Type 1, Diabetes Mellitus Type 2, MRSA, Seizures *Have you ever received a pneumonia vaccine?: No *Have you received a flu vaccine this season?: No Other Medical History: Reports: Other (chronic neck and back pain due to DJD/DDD) Laterality Cases: Bilateral: Tonsillectomy Other Surgeries: Yes: Appendectomy, Cholecystectomy, Colonoscopy, Hysterectomy-Total, Tubal Ligation Amputation: No Fractures: Yes (Bilat pinky toes) - *Social History Smoking Status: Former smoker Tobacco Type: cigarettes # Packs/Day (cigarettes): 3 #Yrs smoked (if former smoker): 44 Alcohol Intake: never Substance Use Type: denies use *Occupational Status:: retired Housing: apartment Household Members: children *Travel in the last 8 weeks: None Family Hx:: Cancer, Diabetes, Heart Attack, Hyperlipidemia, Hypertension, Kidney Disease Review of Systems - Review of Systems Review of systems:: pertinent systems reviewed and negative unless documented below Patient notes leg cramps, fatigue, dyspnea. Denies chest pain, vomiting or diarrhea. - *Neurologic Denies confusion, Denies localized weakness, Denies headache(s), Denies tingling/numbness/burning sensations Meds Home Medications Medication Instructions Recorded Confirmed Type Gabapentin [Gabapentin 400mg Cap] 400 mg PO QID 02/18/19 10/12/21 History Ipratropium/Albuterol Sulfate 1 puff PO QIDP PRN 02/18/19 10/12/21 History [Combivent Respimat Inh] Tizanidine HCl 4 - 8 mg PO QID 02/18/19 10/12/21 History Montelukast Sodium 10 mg PO HS 10/02/20 10/12/21 History Sertraline HCl 50 mg PO DAILY 10/02/20 10/12/21 History Fexofenadine HCl 180 mg PO DAILY 10/12/21 10/12/21 History Linaclotide [Linzess] 290 mcg PO DAILY 10/12/21 10/12/21 History lisinopriL [Lisinopril] 10 mg PO DAILY 10/12/21 10/12/21 History Allergies Allergy/AdvReac Type Severity Reaction Status Date / Time Penicillins Allergy Verified 10/12/21 22:13 Exam Vital signs and Labs for Last 24 Hours: Temp Pulse Resp BP Pulse Ox 98.2 F 92 H 16 102/64 L 95 10/13/21 04:22 10/13/21 06:15 10/13/21 04:22 10/13/21 04:22 10/13/21 06:15 Laboratory Results - last 24 hr 10/12/21 16:56: WBC 6.7, RBC 4.77, Hgb 14.4, Hct 43.1, MCV 90.5, MCH 30.2, MCHC 33.4, RDW 13.8, Plt Count 253, MPV 8.8, Neut % (Auto) 48.9, Lymph % (Auto) 40.3, [place] % (Auto) 5.6, Eos % (Auto) 2.6, Baso % (Auto) 2.5 H, Neut # (Auto) 3.3, Lymph # (Auto) 2.7, [place] # (Auto) 0.4, Eos # (Auto) 0.2, Baso # (Auto) 0.2 10/12/21 16:56: Sodium 138, Potassium 4.0, Chloride 96 L, Carbon Dioxide 38 H, Anion Gap 8.0, BUN 11, Creatinine 0.50 L, Estimated Creat Clear 135, Estimated GFR 126, Est GFR ( Amer) 152, Glucose 147 H, Calcium 9.0, Total Bilirubin 0.3, AST 21, ALT 13, Alkaline Phosphatase 46, Troponin I < 0.01, Total Protein 6.7, Albumin 4.0, Globulin 2.7, Albumin/Globulin Ratio 1.5 10/12/21 16:56: D-Dimer 0.44 10/12/21 16:56: NT-Pro-B Natriuret Pep 93.3 10/12/21 18:28: Lactate 0.9 10/12/21 20:33: Troponin I < 0.01 10/12/21 21:15: SARS-CoV-2 (PCR) Not de
--- NOTE | 2021-10-13 07:48 | P.CONPHA_ITS ---
[facility] Pharmacy VTE Monitoring - Patient Demographics Admission date: 10/13/21 Report Date: 10/13/21 Time: 07:48 Allergies/Adverse Reactions: Patient Allergies Penicillins Allergy (Verified 10/12/21 22:13) Height: 1.68 m Weight: 63.367 kg Patient Problems: Current Active Problems COPD (chronic obstructive pulmonary disease) (Chronic) COPD exacerbation (Acute) Constipation (Acute) - VTE Risk Labs: VTE Related Lab Results Hgb 13.8 g/dL (12.2-16.2) 10/13/21 05:51 Hct 41.1 % (37.0-47.0) 10/13/21 05:51 Plt Count 229 K/mm3 (142-424) 10/13/21 05:51 BUN 12 mg/dl (7-17) 10/13/21 05:51 Creatinine 0.40 mg/dl (0.52-1.04) L 10/13/21 05:51 Estimated Creat Clear 150 mL/min (50-200) 10/13/21 05:51 Was VTE Risk Assessment Performed: Yes VTE Risk Level: Moderate Risk Clinical Trial Participant: No - Prophylaxis VTE Prophylaxis Ordered?: Yes Types of VTE Prophylaxis: TEDS Knee High
--- NOTE | 2021-10-13 07:56 | HMH.PHAINT ---
verified home medication list using [facility] from [facility]
--- NOTE | 2021-10-13 15:57 | PC.NURSE ---
Pt's been A&O x4, able to verbalize needs. Lungs are diminished. She remains on 2L NC w/O2 sats measuring >93%. She's been using the BSC independently, she's had 1 large BM today. Appetite has been ok, eating 50-75% of meals. She's denied any complaints. She's currently resting in bed with her eyes closed.
[2021-10-14] VITALS (9 sets, daily range): BP systolic 80–125; BP diastolic 50–68; PULSE 86–108; RESP 16–18; TEMP 36.7–36.8; O2SAT 2–96; BMI 22.4
--- NOTE | 2021-10-14 04:37 | PC.NURSE ---
Pt has rested well thus far in shift. Pt has voiced x2 c/o of headache. Medicated per JUL with relief. Pt remains on 2L NC with O2 96%. Pt is able to make needs known to staff.
[2021-10-14 07:23] LABS: Basophils % 0.3 % (0.1-2.0); Eosinophils % 0.2 % (0.1-12.0); Hematocrit 41.4 % (37.0-47.0); Hemoglobin 13.7 g/dL (12.2-16.2); Lymphocytes # 1.2 K/mm3 (0.7-4.5); Lymphocytes % 8.9 % (10-50); Mean Corpuscular HGB Conc 33.1 g/dL (31.8-35.4); Mean Corpuscular Volume 90.4 fl (81-99); Mean Platelet Volume 9.3 fl (7.4-10.4); Monocytes # 0.4 K/mm3 (0.1-1.0); Monocytes % 3.2 % (1.7-9.3); Neutrophils # 11.2 K/mm3 (1.8-7.8); Neutrophils % 87.4 % (37.0-80.0); Platelet Count 277 K/mm3 (142-424); Red Blood Count 4.58 M/mm3 (4.20-5.40); Red Cell Distribution Width 13.9 % (11.5-17.5); White Blood Count 12.9 K/mm3 (4.8-10.8)
[2021-10-14 07:29] LABS: MANUAL DIFFERENTIAL MANUAL DIFFERENTIAL (MANUAL DIFF)
[2021-10-14 07:32] LABS: Anion Gap 8.4 mEq/L (5-15); Blood Urea Nitrogen 14 mg/dl (7-17); Calcium 9.2 mg/dl (8.4-10.2); Carbon Dioxide 37 mmol/L (22.0-30.0); Chloride 95 mmol/L (98-107); Creatinine Clearance Estimated 119 mL/min (50-200); Estimated Glomerular Filt Rate 126 ml/min (>60); GFR (African American) 152 ML/MIN (>60); Glucose 163 mg/dl (74-100); Potassium 4.4 mmoL/L (3.5-5.1); Sodium 136 mmol/L (136-145)
[2021-10-14 07:46] LABS: Nucleated Red Blood Cells 1; Platelet Estimate Normal; RBC Morphology Normal; Total Cells Counted 100
[2021-10-14 07:49] LABS: Lymphocytes % 8 % (10-50); Neutrophils % 92 % (42-76)
--- NOTE | 2021-10-14 11:15 | PC.NURSE ---
Spoke with Eleanor from concerning getting some help for pt with meals at home. Pt states that she has lost 20lbs. within a month r/t no eating but usually one meal a day because it has gotting too hard for her to cook and fix meals. V/U.
--- NOTE | 2021-10-14 11:56 | P.PN_ITS ---
Internal Medicine - PN: Subj *Date: 10/14/21 *Time: 08:00 Interval history: Patient is remained stable overnight. Still having some shortness of breath and difficulty breathing. Still feels quite constipated as well. no fevers overnight. Vitals WNL. Reviewed labs. Eating some. Exam Vital signs and Labs for Last 24 Hours: Temp Pulse Resp BP Pulse Ox 98.1 F 98 H 18 106/61 L 94 L 10/14/21 08:00 10/14/21 10:00 10/14/21 08:00 10/14/21 08:00 10/14/21 10:00 Laboratory Results - last 24 hr 10/14/21 06:37: WBC 12.9 H D, RBC 4.58, Hgb 13.7, Hct 41.4, MCV 90.4, MCH 30.0, MCHC 33.1, RDW 13.9, Plt Count 277, MPV 9.3, Neut % (Auto) 87.4 H, Lymph % (Auto) 8.9 L, [place] % (Auto) 3.2, Eos % (Auto) 0.2, Baso % (Auto) 0.3, Neut # (Auto) 11.2 H, Lymph # (Auto) 1.2, [place] # (Auto) 0.4, Eos # (Auto) 0.0, Baso # (Auto) 0.0, Total Counted 100, Neutrophils % (Manual) 92 H, Lymphocytes % (Manual) 8 L, Monocytes % (Manual) , Nucleated RBCs 1, Platelet Estimate Normal, RBC Morphology Normal 10/14/21 06:37: Sodium 136, Potassium 4.4, Chloride 95 L, Carbon Dioxide 37 H, Anion Gap 8.4, BUN 14, Creatinine 0.50 L D, Estimated Creat Clear 119, Estimated GFR 126, Est GFR ( Amer) 152 D, Glucose 163 H, Calcium 9.2 I & O for Last 24 hours: Intake & Output 10/11/21 10/12/21 10/13/21 10/14/21 23:59 23:59 23:59 23:59 Intake Total 1981 / 2995 1494 / 1494 Output Total 400 / 400 Balance 1581 / 2595 1494 / 1494 Weight 63.367 kg 63.367 kg 63.231 kg - Constitutional mild distress, chronically ill appearing - *Routine HEENT Exam Head: Present: normocephalic Eye: Present: EOMI, PERRL ENT: Present: mucous membranes moist - *Routine Neck Exam Present: supple. Absent: lymphadenopathy - *Routine Respiratory Exam Present: prolonged expiratory phase, rhonchi, wheezes, diminished air movement. Absent: crackles - *Routine Cardiovascular Exam Present: RRR - *Routine Abdominal Exam Present: soft, normoactive bowel sounds. Absent: tenderness - *Routine Extremities Exam Absent: cyanosis, clubbing, edema - *Routine Skin Exam Present: warm. Absent: rash - *Routine Neurological Exam Present: alert, oriented X3 Assessment and Plan (1) Acute on chronic respiratory failure with hypoxemia Status: Acute Category: Medical Code(s): J96.21 - Acute and chronic res piratory failure with hypoxia (2) COPD exacerbation Status: Acute Category: Medical Code(s): J44.1 - Chronic obstructive pulmonary disease with (acute) exacerbation (3) Constipation Status: Chronic Qualifiers: Constipation type: slow transit constipation Qualified Code(s): K59.01 - Slow transit constipation Category: Medical Code(s): K59.00 - Constipation, unspecified - Assessment and plan all Dx Assessment and Plan for all problems:: Patient responding well to breathing treatments, steroids, antibiotics. Continue with current treatment course. Still struggling with dyspnea however. Bowel movement still not moving regularly. Will initiate enema today. We will make further adjustment when ready to go home for daily bowel regimen. Resume home meds for psychiatric conditions. DNR Regular diet Continues to require inpatient management, anticipate discharge in the coming day.
--- NOTE | 2021-10-14 16:59 | PC.NURSE ---
Pt has rested well throughout the day. Has required minimal assist with ADLs. Continues O2 @2L NC at this time and LR infusing at 50mls/hr. Received Fleets Enema earlier today with 1 small bm afterwards. +BS all quads.
[2021-10-15 01:44] VITALS: PULSE 110; PULSE 115
--- NOTE | 2021-10-15 03:39 | PC.NURSE ---
Patient has remained on 2LNC. Patient has had no BM thus far in this RN's shift. Patient reports feeling better after the small BM earlier in the day.
[2021-10-15 04:00] VITALS: BP 100/53; PULSE 96; RESP 19; TEMP 36.9; O2SAT 96
[2021-10-15 05:00] VITALS: BMI 22.4
[2021-10-15 06:14] VITALS: PULSE 100; PULSE 90; O2SAT 98
[2021-10-15 07:54] LABS: Basophils % 0.1 % (0.1-2.0); Eosinophils % 0.2 % (0.1-12.0); Hematocrit 40.2 % (37.0-47.0); Hemoglobin 13.2 g/dL (12.2-16.2); Lymphocytes % 7.4 % (10-50); Mean Corpuscular HGB Conc 32.9 g/dL (31.8-35.4); Mean Corpuscular Hemoglobin 30.5 pg (27.0-31.2); Mean Corpuscular Volume 92.6 fl (81-99); Mean Platelet Volume 9.8 fl (7.4-10.4); Monocytes # 0.5 K/mm3 (0.1-1.0); Monocytes % 3.3 % (1.7-9.3); Neutrophils # 12.1 K/mm3 (1.8-7.8); Platelet Count 250 K/mm3 (142-424); Red Blood Count 4.34 M/mm3 (4.20-5.40); Red Cell Distribution Width 13.8 % (11.5-17.5); White Blood Count 13.6 K/mm3 (4.8-10.8)
[2021-10-15 07:57] LABS: MANUAL DIFFERENTIAL MANUAL DIFFERENTIAL (MANUAL DIFF)
[2021-10-15 07:59] LABS: Chloride 97 mmol/L (98-107); Sodium 138 mmol/L (136-145)
[2021-10-15 08:00] VITALS: BP 134/82; PULSE 112; RESP 18; TEMP 36.6; O2SAT 94
[2021-10-15 08:02] LABS: Alanine Aminotransferase 18 U/L (12-78); Alkaline Phosphatase 43 U/L (38-126); Anion Gap 7.3 mEq/L (5-15); Aspartate Amino Transferase 22 U/L (14-36); Bilirubin,Total 0.2 mg/dl (0.2-1.3); Blood Urea Nitrogen 15 mg/dl (7-17); Calcium 9.1 mg/dl (8.4-10.2); Carbon Dioxide 39 mmol/L (22.0-30.0); Creatinine Clearance Estimated 119 mL/min (50-200); Estimated Glomerular Filt Rate 126 ml/min (>60); GFR (African American) 152 ML/MIN (>60); Glucose 189 mg/dl (74-100); Potassium 5.3 mmoL/L (3.5-5.1)
[2021-10-15 08:03] LABS: Albumin Level 3.8 g/dl (3.5-5.0); Albumin/Globulin Ratio 1.5 (1.1-1.8); Globulin 2.6 g/dL (1.3-3.2); Total Protein,Serum 6.4 g/dl (6.3-8.2)
--- NOTE | 2021-10-15 09:31 | HMH.DCSUM ---
General - General Admission date:: 10/12/21 Discharge date: 10/15/21 HPI HPI: 61-year-old white female with severe COPD, oxygen requiring, who lives at home with her sister, who has been very ill over the past couple of weeks with cough, congestion and shortness of air. Came to the emergency department where she was found to be a fairly significant COPD exacerbation, also noted to have hypokalemia. She has a long history of bowel disorders and notes that she is not had a good bowel movement for about a month, but last night finally had a good bowel movement felt little better. In the ER she was found to have tachycardia, dyspnea, hypoxia compared to her baseline and was admitted for COPD exacerbation. Hospital Course Hospital Course: 61-year-old female who presented with acute on chronic hypoxemic respiratory failure secondary to COPD exacerbation. Started on aggressive regimen including breathing treatments, steroids, antibiotics. Has responded with decreased respiratory distress. Remains afebrile. Tolerating fair p.o. intake. Able to transition to oral regimen. Already has oxygen, nebulizers, inhalers at home. Resume her home regimen with the addition of 3 more days of steroids and antibiotics. Additionally she is struggled with constipation during admission. This is a longstanding problem present in the outpatient setting, too. Enema yesterday produced a bowel movement giving her some relief. Has been on aggressive regimen with docusate senna scheduled. Resume home Linzess regimen with the addition of docusate senna. Prescription sent. Continued all of her medications for anxiety and depression. No change Counseled on new medications. Stressed the importance of continuing them once home. Follow-up with PCP within the next 1 to 2 weeks. Encouraged her to seek treatment with a manager field as well, would benefit from referral to assist in management of her end-stage COPD. Medically stable for discharge home. Examined on day of discharge. Objective Vital signs: Temp Pulse Resp BP Pulse Ox 97.9 F 112 H 18 134/82 94 L 10/15/21 08:00 10/15/21 08:00 10/15/21 08:00 10/15/21 08:00 10/15/21 08:00 Narrative: - Constitutional minimal distress, chronically ill appearing - *Routine HEENT Exam Head: Present: normocephalic Eye: Present: EOMI, PERRL ENT: Present: mucous membranes moist - *Routine Neck Exam Present: supple. Absent: lymphadenopathy - *Routine Respiratory Exam Present: interval improvement in prolonged expiratory phase, wheezes, air movement still poor. Absent: crackles and rhonchi - *Routine Cardiovascular Exam Present: RRR - *Routine Abdominal Exam Present: soft, normoactive bowel sounds. Absent: tenderness - *Routine Extremities Exam Absent: cyanosis, clubbing, edema - *Routine Skin Exam Present: warm. Absent: rash - *Routine Neurological Exam Present: alert, oriented X3, tremor at rest. Results Labs on day of discharge: Labs from last 24 hours 10/15/21 10/15/21 06:39 06:39 WBC 13.6 H RBC 4.34 Hgb 13.2 Hct 40.2 MCV 92.6 MCH 30.5 MCHC 32.9 RDW 13.8 Plt Count 250 MPV 9.8 Neut % (Auto) 89.0 H Lymph % (Auto) 7.4 L Maverick % (Auto) 3.3 Eos % (Auto) 0.2 Baso % (Auto) 0.1 Neut # (Auto) 12.1 H Lymph # (Auto) 1.0 Maverick # (Auto) 0.5 Eos # (Auto) 0.0 Baso # (Auto) 0.0 Sodium 138 Potassium 5.3 H D Chloride 97 L Carbon Dioxide 39 H Anion Gap 7.3 BUN 15 Creatinine 0.50 L Estimated Creat Clear 119 Estimated GFR 126 Est GFR ( Amer) 152 Glucose 189 H Calcium 9.1 Magnesium 2.0 Total Bilirubin 0.2 AST 22 ALT 18 D Alkaline Phosphatase 43 Total Protein 6.4 Albumin 3.8 Globulin 2.6 Albumin/Globulin Ratio 1.5 Preliminary micro results at discharge 10/12/21 18:28 Blood Culture - Preliminary Blood NO GROWTH AFTER 48 HOURS 10/12/21 18:28 Blood
[2021-10-15 10:04] VITALS: PULSE 109; PULSE 110; O2SAT 95
[2021-10-15 11:10] LABS: Lymphocytes % 10 % (10-50); Monocytes % 1 % (2-9); Neutrophils % 89 % (42-76); Platelet Estimate Normal; RBC Morphology Normal; Total Cells Counted 100
--- NOTE | 2021-10-15 11:51 | PC.NURSE ---
pt has been discharged from the unit via wheelchair. took all belongigns with her including medications that were in [facility]ni. left on her home o2. saline lock discontinued. voiced understanding of all education and follow up appts.
--- NOTE | 2021-10-17 15:23 | CARE MANAGER ---
I spoke with patient on 10/14/2021. Patient was unsure if she would be able to accept services in her sister's home due to her sister not wanting people in and out of the home. I offered to help set up meals on wheels and custodial referral for group home placement. Patient agreed for me to call and speak with her sister, Faustina Delacruz. Faustina stated that she really didn't want her sister to go into a custodial facility and wasn't sure that they needed meals on wheels. She stated that she would talk to her sister and make a decision on needed services. Patient discharged over the weekend and was unable to be reached by CM today to follow up.
--- NOTE | 2021-10-19 11:46 | CARE MANAGER ---
Called and spoke with Silvia regarding post discharge status. Patient states that she is taking discharge medications as prescribed. She continues to feel that she does not need any services, including meals on wheels. Patient states that she is feeling well and has no concerns at this time.
== END 2021-10-15 11:50 | disposition home or self-care (01) ==
LOC: ER 21:22 → 2ND 21:27
PROVIDERS: Internal Medicine Adolescent Medicine; Admitting Provider Internal Medicine Adolescent Medicine; Emergency Provider Emergency Medicine; PCP Family Medicine; Visit Provider Internal Medicine Adolescent Medicine
DX: J44.1 Chronic obstructive pulmonary disease with (acute) exacerbation (principal); K59.01 Slow transit constipation; E87.6 Hypokalemia; I10 Essential (primary) hypertension; Z99.81 Dependence on supplemental oxygen; J96.21 Acute and chronic respiratory failure with hypoxia; Z79.899 Other long term (current) drug therapy; Z87.891 Personal history of nicotine dependence; R06.9 Unspecified abnormalities of breathing; Z20.822 Contact with and (suspected) exposure to COVID-19
CPT/HCPCS: G0378; 36415; 71045; 74177; 80048; 80053; 83605; 83735; 83880; 84484; 85007; 85025; 85378; 87040; 93005; 94640; 94761; 99285; C9803; J0696; J3475; Q9967; U0003; U0005

== ENCOUNTER 2021-10-28 16:53 | Inpatient (IN) | payer MEDICARE, SELFPAY ==
[2021-10-28] VITALS (12 sets, daily range): BP systolic 115–132; BP diastolic 70–99; PULSE 80–104; RESP 18–20; TEMP 37.1; O2SAT 94–99; BMI 24.3; BMI 22.1
--- NOTE | 2021-10-28 17:08 | XR_ITS ---
PROCEDURE INFORMATION: Exam: XR Chest Exam date and time: 10/28/2021 5:11 PM Age: 61 years old Clinical indication: Shortness of breath; Additional info: SOA TECHNIQUE: Imaging protocol: XR of the chest. Views: 1 view. COMPARISON: CR XR CHEST PORTABLE 10/12/2021 5:01 PM FINDINGS: Lungs: Lung hyperinflation. No acute airspace disease. Pleural spaces: Unremarkable. No pleural effusion. No pneumothorax. Heart/Mediastinum: Unremarkable. No cardiomegaly. Bones/joints: Old right-sided rib fractures. IMPRESSION: No acute findings.
--- NOTE | 2021-10-28 17:22 | ECG_ITS ---
APPROVED REPORT Exam: Resting ECG HR:99 bpm ECG Measurements Heart Rate 99 AXES MT 160 P 81 QRSd 93 QRS 89 QT 324 T 64 QTc 380 Conclusion SINUS RHYTHM POSSIBLE RIGHT ATRIAL ENLARGEMENT [0.25mV P-WAVE] POSSIBLE LEFT ATRIAL ENLARGEMENT [-0.1mV P-WAVE IN V1/V2] BORDERLINE ECG UNCONFIRMED REPORT Electronically signed by : Case Barrios MD 10/29/2021 17:24:42
[2021-10-28 17:31] LABS: Basophils # 0.1 K/mm3 (0-0.2); Eosinophils # 0.1 K/mm3 (0.0-0.4); Eosinophils % 1.1 % (0.1-12.0); Hematocrit 40.6 % (37.0-47.0); Hemoglobin 13.4 g/dL (12.2-16.2); Lymphocytes # 1.7 K/mm3 (0.7-4.5); Lymphocytes % 32.5 % (10-50); Mean Corpuscular HGB Conc 33.1 g/dL (31.8-35.4); Mean Corpuscular Hemoglobin 30.2 pg (27.0-31.2); Mean Corpuscular Volume 91.1 fl (81-99); Mean Platelet Volume 8.7 fl (7.4-10.4); Monocytes # 0.3 K/mm3 (0.1-1.0); Monocytes % 6.2 % (1.7-9.3); Neutrophils % 58.1 % (37.0-80.0); Platelet Count 159 K/mm3 (142-424); Red Blood Count 4.45 M/mm3 (4.20-5.40); Red Cell Distribution Width 13.9 % (11.5-17.5); White Blood Count 5.1 K/mm3 (4.8-10.8)
[2021-10-28 17:35] LABS: Anion Gap 8.1 mEq/L (5-15); Blood Urea Nitrogen 12 mg/dl (7-17); Calcium 8.8 mg/dl (8.4-10.2); Carbon Dioxide 36 mmol/L (22.0-30.0); Chloride 100 mmol/L (98-107); Creatinine Clearance Estimated 133 mL/min (50-200); Estimated Glomerular Filt Rate 126 ml/min (>60); GFR (African American) 152 ML/MIN (>60); Glucose 125 mg/dl (74-100); Potassium 4.1 mmoL/L (3.5-5.1); Sodium 140 mmol/L (136-145)
[2021-10-28 17:48] LABS: Troponin I < 0.01 ng/ml (0.00-0.034)
--- NOTE | 2021-10-28 17:48 | HMH.EDGENADL ---
ED Disposition Clinical Impression: COPD exacerbation, COVID-19 virus infection Acute and chronic respiratory failure Qualifiers: Respiratory failure complication: hypoxia and hypercapnia Qualified Code(s): J96.21 - Acute and chronic respiratory failure with hypoxia Disposition: Admitted as Observation Condition on Discharge: Fair - Critical Care Critical Care Time: No Attestation: On 10/28/21, the high probability of a clinically significant, sudden or life threatening deterioration of the following system(s) required my full and direct attention, intervention and personal management. The time I documented below is in addition to time spent performing reported procedures but includes the following listed in this critical care notation. Medical Decision Making - Medical Records Medical records reviewed: Yes: I reviewed the patient's medical records. MR Comment: Reviewed discharge summary from recent admission here 10/12/2021 through 10/15/2021. Admitted for COPD exacerbation and respiratory failure. - Patel Inquiry Pt receiving controlled substance: No Vital Signs: 10/28/21 16:51 10/28/21 17:00 10/28/21 17:05 Temperature 98.7 F Temperature Source Oral Pulse Rate 102 H 98 H Pulse Rate [Right Brachial] 99 H Respiratory Rate 20 20 18 Blood Pressure 128/90 132/85 Blood Pressure [Right Arm] 128/90 Blood Pressure Mean 102 Blood Pressure Mean [Right Arm] 102 Blood Pressure Source Automatic Cuff Blood Pressure Source [Right Arm] Automatic Cuff Blood Pressure Position Sitting Blood Pressure Position [Right Arm] Sitting 02 Sat by Pulse Oximetry 97 98 95 Oxygen Delivery Method Nasal Cannula Nasal Cannula Nasal Cannula Oxygen Flow Rate (LPM) 2 2 2 10/28/21 17:30 10/28/21 18:30 10/28/21 19:00 Temperature Temperature Source Pulse Rate 104 H 87 89 Pulse Rate [Right Brachial] Respiratory Rate 18 18 Blood Pressure 129/99 H 132/85 117/75 Blood Pressure [Right Arm] Blood Pressure Mean 106 100 Blood Pressure Mean [Right Arm] Blood Pressure Source Blood Pressure Source [Right Arm] Blood Pressure Position Blood Pressure Position [Right Arm] 02 Sat by Pulse Oximetry 97 99 96 Oxygen Delivery Method Nasal Cannula Nasal Cannula Nasal Cannula Oxygen Flow Rate (LPM) 2 2 2 10/28/21 19:30 Temperature Temperature Source Pulse Rate 80 Pulse Rate [Right Brachial] Respiratory Rate Blood Pressure 115/70 Blood Pressure [Right Arm] Blood Pressure Mean Blood Pressure Mean [Right Arm] Blood Pressure Source Blood Pressure Source [Right Arm] Blood Pressure Position Blood Pressure Position [Right Arm] 02 Sat by Pulse Oximetry 96 Oxygen Delivery Method Nasal Cannula Oxygen Flow Rate (LPM) 2 - Lab Data Lab Results 10/28/21 17:10: WBC 5.1, RBC 4.45, Hgb 13.4, Hct 40.6, MCV 91.1, MCH 30.2, MCHC 33.1, RDW 13.9, Plt Count 159, MPV 8.7, Neut % (Auto) 58.1, Lymph % (Auto) 32.5, [place] % (Auto) 6.2, Eos % (Auto) 1.1, Baso % (Auto) 2.0, Neut # (Auto) 3.0, Lymph # (Auto) 1.7, Dyer # (Auto) 0.3, Eos # (Auto) 0.1, Baso # (Auto) 0.1 10/28/21 17:10: Sodium 140, Potassium 4.1, Chloride 100, Carbon Dioxide 36 H, Anion Gap 8.1, BUN 12, Creatinine 0.50 L, Estimated Creat Clear 133, Estimated GFR 126, Est GFR ( Amer) 152, Glucose 125 H, Calcium 8.8, Troponin I < 0.01 10/28/21 18:21: Specimen Source Right radial, O2 % 2, ABG pH 7.35, ABG pCO2 55.3 H, ABG pO2 89.6, ABG HCO3 29.6 H, ABG Total CO2 31.3 H, ABG O2 Saturation 97, ABG Base Excess 4.0 H, Jay Test Acceptable Result diagrams: 10/28/21 17:10 10/28/21 17:10 Orders (Tests/Meds): ED MEDICATIONS Generic Name Dose Route Start Last Admin Trade Name Freq PRN Reason Stop Dose Admin Albuterol/Ipratropium 3 ml 10/28/21 20:00 10/28/21 18:27 Ipratropium/Albuterol 3 Ml Neb IH 11/27/21 19:59 3 ml QIDRT KENNY Administration Levofloxacin/Dextrose 750 mg in 150 mls @ 100 mls/hr 10/28/21 18:30 10/28/21 18:31 Levof
--- NOTE | 2021-10-28 18:24 | PC.NURSE ---
notified assisted living housekeeper of admission
--- NOTE | 2021-10-28 18:25 | PC.NURSE ---
notified RT of neb treatment and abg orders
[2021-10-28 18:43] LABS: ABG HCO3 29.6 mmhg (22.0-26.0); ABG Oxygen Saturation 97 % (90-100); ABG PH 7.35 mmol/L (7.35-7.45); ABG PO2 89.6 mmhg (80-100); ABG TCO2 31.3 mmhg (23-27)
[2021-10-28 18:44] LABS: Allen's Test Acceptable; Oxygen 2 %; Source Right Radial
[2021-10-28 18:45] LABS: ABG PCO2 55.3 mmhg (35.0-45.0)
--- NOTE | 2021-10-28 18:45 | PC.NURSE ---
RT called called with critical ABG results at this time. will notify ER MD of results when he off the phone with another doctor.
--- NOTE | 2021-10-28 18:47 | PC.NURSE ---
notified ER of critical abg results on pt
[2021-10-28 18:50] LABS: Influenza A, PCR Not Detected (NotDetected); Influenza B, PCR Not Detected (NotDetected)
[2021-10-28 19:25] LABS: Coronavirus 19, PCR Detected (NotDetected)
--- NOTE | 2021-10-28 20:13 | PC.NURSE ---
PT ARRIVED TO FLOOR VIA STRETCHER FROM ED W/STAFF @ 2012
--- NOTE | 2021-10-28 20:49 | HMH.HP ---
*Admission Date: 10/28/21 *Chief complaint: sob *History of present illness: this patient presented to the ed - pt presents to ED c/o SOA x 3 days. pt states she has a hx of COPD and wears 2LNC at home. pt reports nonproductive cough, denies fever Patient arrives by ambulance. 2 to 3-day history of chest congestion and shortness of breath. She has COPD and is oxygen dependent at 2 L. For the past couple of days she says that she is so short of breath she cannot even walk across the room. Says that she is coughing but unable to bring anything up, feels like there is stuff in there that will not come up. Temperature not taken at home. She has had some rhinorrhea. Denies chest pain. No known exposure to COVID. She has not been vaccinated against COVID. She is a former smoker. She uses nebulizer treatments every 4 hours. pt with recent admit 10/12/21- 10/16/21 for acute excerbation of copd - pt with acute exacerbation of copd and was admitted for eval and treatment and noted to have covid-19 [facility] History I have reviewed the patient's past medical history: Yes Medical History: Reports:: Chronic Obstructive Pulmonary Disease (COPD), Hypertension Denies:: Cancer, Diabetes Mellitus Type 1, Diabetes Mellitus Type 2, MRSA, Seizures *Have you ever received a pneumonia vaccine?: No *Have you received a flu vaccine this season?: No Other Medical History: Reports: Other (chronic neck and back pain due to DJD/DDD) Laterality Cases: Bilateral: Tonsillectomy Other Surgeries: Yes: Appendectomy, Cholecystectomy, Colonoscopy, Hysterectomy-Total, Tubal Ligation Amputation: No Fractures: Yes (Bilat pinky toes) - *Social History Smoking Status: Former smoker Tobacco Type: cigarettes # Packs/Day (cigarettes): 3 #Yrs smoked (if former smoker): 44 Alcohol Intake: never Substance Use Type: denies use *Occupational Status:: retired Housing: apartment Household Members: children *Travel in the last 8 weeks: None Family Hx:: Cancer, Diabetes, Heart Attack, Hyperlipidemia, Hypertension, Kidney Disease Review of Systems - Review of Systems Review of systems:: pertinent systems reviewed and negative unless documented below - Constitutional Reports weakness, Denies fever(s) - Eyes Denies change in vision - ENT Reports dry mouth - *Cardiovascular Reports shortness of breath, Denies chest pain - *Respiratory Reports cough, Denies coughing up blood - *Gastrointestinal Denies abdominal pain, Denies vomiting - *Genitourinary Denies blood in urine - *Musculoskeletal Denies back pain - Integumentary/Breasts Denies rash - *Neurologic Denies headache(s), Denies seizure-like activity Meds Home Medications Medication Instructions Recorded Confirmed Type Ipratropium/Albuterol Sulfate 1 puff PO QIDP PRN 02/18/19 10/28/21 History [Combivent Respimat Inh] Tizanidine HCl 4 - 8 mg PO QID 02/18/19 10/28/21 History Montelukast Sodium 10 mg PO HS 10/02/20 10/28/21 History Fexofenadine HCl 180 mg PO DAILY 10/12/21 10/28/21 History lisinopriL [Lisinopril] 10 mg PO DAILY 10/12/21 10/28/21 History Ergocalciferol (Vitamin D2) 50,000 units PO WEEKLY 10/13/21 10/28/21 History [Drisdol 50,000 units (1.25mg) capsule] Gabapentin [Neurontin 600mg 600 mg PO QID 10/13/21 10/28/21 History tablet] Sertraline HCl [Zoloft 100mg 100 mg PO DAILY 10/13/21 10/28/21 History tablet] Acetaminophen [Acetaminophen 325mg 650 mg PO Q4HP PRN tab 10/15/21 10/28/21 Rx tab] Sennosides/Docusate Sodium 2 tab PO BID PRN 30 Days #60 tab 10/15/21 10/28/21 Rx [Senokot-S Tablet] Allergies Allergy/AdvReac Type Severity Reaction Status Date / Time Penicillins Allergy Verified 10/12/21 22:13 Exam Vital signs and Labs for Last 24 Hours: Temp Pulse Resp BP Pulse Ox 98.7 F 81 18 115/70 96 10/28/21 19:46 10/28/21 19:46 10/28/21 19:46 10/28/21 19:46 10/28/21 19:30 Laboratory Results - last 24 hr 10/28/21 17
--- NOTE | 2021-10-28 20:51 | CT_ITS ---
PROCEDURE INFORMATION: Exam: CTA Chest With Contrast Exam date and time: 10/28/2021 10:17 PM Age: 61 years old Clinical indication: Shortness of breath; Additional info: SOB covid positive TECHNIQUE: Imaging protocol: Computed tomographic angiography of the chest with contrast. 3D rendering (Not supervised by radiologist): MIP and/or 3D reconstructed images were created by the technologist. Radiation optimization: All CT scans at this facility use at least one of these dose optimization techniques: automated exposure control; mA and/or kV adjustment per patient size (includes targeted exams where dose is matched to clinical indication); or iterative reconstruction. Contrast material: ISOVUE 370; Contrast volume: 70 ml; Contrast route: INTRAVENOUS (IV); COMPARISON: CR XR CHEST PORTABLE 10/28/2021 5:11 PM FINDINGS: Pulmonary arteries: Normal. No pulmonary emboli. Aorta: Unremarkable. No aortic aneurysm. No aortic dissection. Lungs: Emphysematous changes. Pleural spaces: Unremarkable. No pneumothorax. No pleural effusion. Heart: Unremarkable. No cardiomegaly. No pericardial effusion. Lymph nodes: Unremarkable. No enlarged lymph nodes. Bones/joints: Old right 7th and 8th rib fractures. Chronic appearing T8 and T11 vertebral body compression deformities. Soft tissues: Unremarkable. IMPRESSION: 1. Emphysematous changes. 2. Old right-sided rib fractures and chronic appearing T8 and T11 vertebral body compression deformities.
--- NOTE | 2021-10-28 22:15 | PC.NURSE ---
PT OFF FLOOR AT THIS TIME VIA W/C WITH RADIOLOGY
--- NOTE | 2021-10-28 22:27 | PC.NURSE ---
PT BACK TO FLOOR @ THIS TIME
[2021-10-29] VITALS (10 sets, daily range): BP systolic 109–157; BP diastolic 70–93; PULSE 90–130; RESP 16–20; TEMP 36.7–37.1; O2SAT 93–98; BMI 22.1
--- NOTE | 2021-10-29 01:16 | ECG_ITS ---
APPROVED REPORT Exam: Resting ECG HR:99 bpm ECG Measurements Heart Rate 99 AXES NH 163 P 90 QRSd 92 QRS 104 QT 336 T 62 QTc 393 Conclusion SINUS RHYTHM RIGHT AXIS DEVIATION [QRS AXIS > 100] ABNORMAL ECG UNCONFIRMED REPORT Electronically signed by : Case Barrios MD 10/29/2021 17:22:39
--- NOTE | 2021-10-29 01:28 | PC.NURSE ---
pt complained of soa, chest pressure and stated feels like someone sitting on her chest ; ekg obtained, o2 sat 99% on 3L PNC, 130/87 b/p ; hr 102; temp 98.3; pt sweating; ekg read by dr oakes and given pt presenting complaints and v/s; no acute changes noted per dr okaes on ekg, note new orders entered per dr oakes. will continue to monitor.
[2021-10-29 01:58] LABS: Troponin I < 0.01 ng/ml (0.00-0.034)
--- NOTE | 2021-10-29 08:58 | P.PN_ITS ---
Internal Medicine - PN: Subj *Date: 10/29/21 *Time: 18:22 Interval history: pt doing better on 02 - no chest pain - labs pending - neg ct for pul emboli Exam Vital signs and Labs for Last 24 Hours: Temp Pulse Resp BP Pulse Ox 98.5 F 103 H 18 150/83 H 96 10/29/21 04:00 10/29/21 06:41 10/29/21 04:00 10/29/21 04:00 10/29/21 06:41 Laboratory Results - last 24 hr 10/28/21 17:10: WBC 5.1, RBC 4.45, Hgb 13.4, Hct 40.6, MCV 91.1, MCH 30.2, MCHC 33.1, RDW 13.9, Plt Count 159, MPV 8.7, Neut % (Auto) 58.1, Lymph % (Auto) 32.5, [place] % (Auto) 6.2, Eos % (Auto) 1.1, Baso % (Auto) 2.0, Neut # (Auto) 3.0, Lymph # (Auto) 1.7, [place] # (Auto) 0.3, Eos # (Auto) 0.1, Baso # (Auto) 0.1 10/28/21 17:10: Sodium 140, Potassium 4.1, Chloride 100, Carbon Dioxide 36 H, A nion Gap 8.1, BUN 12, Creatinine 0.50 L, Estimated Creat Clear 133, Estimated GFR 126, Est GFR ( Amer) 152, Glucose 125 H, Calcium 8.8, Troponin I < 0.01 10/28/21 18:21: Specimen Source Right radial, O2 % 2, ABG pH 7.35, ABG pCO2 55.3 H, ABG pO2 89.6, ABG HCO3 29.6 H, ABG Total CO2 31.3 H, ABG O2 Saturation 97, ABG Base Excess 4.0 H, Jay Test Acceptable 10/28/21 18:38: SARS-CoV-2 (PCR) Detected A, Influenza A Untype (PCR) Not detected, Influenza Type B (PCR) Not detected 10/29/21 01:25: Troponin I < 0.01 I & O for Last 24 hours: Intake & Output 10/26/21 10/27/21 10/28/21 10/29/21 11:59 11:59 11:59 11:59 Intake Total 150 / 150 Output Total 300 / 300 Balance -150 / -150 Weight 141 lb 1.533 oz - Constitutional no acute distress - *Routine HEENT Exam Head: Present: normocephalic Eye: Present: EOMI, PERRL ENT: Present: mucous membranes dry - *Routine Neck Exam Present: supple. Absent: JVD - *Routine Respiratory Exam Present: decreased breath sounds, wheezes - *Routine Cardiovascular Exam Present: RRR, murmur - *Routine Abdominal Exam Present: soft - *Routine Skin Exam Present: intact - *Routine Neurological Exam Present: alert, CN II-XII intact - Routine Psychiatric Exam Present: cooperative Assessment and Plan (1) Acute and chronic respiratory failure Status: Acute Qualifiers: Respiratory failure complication: hypoxia and hypercapnia Qualified Code(s): J96.21 - Acute and chronic respiratory failure with hypoxia; J96.22 - Acute and chronic respiratory failure with hypercapnia Category: Medical Code(s): J96.20 - Acute and chronic respiratory failure, unspecified whether with hypoxia or hypercapnia (2) COVID-19 virus infection Status: Acute Category: Medical Code(s): U07.1 - COVID-19 (3) Constipation Status: Chronic Qualifiers: Constipation type: slow transit constipation Qualified Code(s): K59.01 - Slow transit constipation Category: Medical Code(s): K59.00 - Constipation, unspecified (4) Hypertension Status: Chronic Category: Medical Code(s): I10 - Essential (primary) hypertension
[2021-10-29 09:38] LABS: Chloride 98 mmol/L (98-107)
[2021-10-29 09:39] LABS: Potassium 4.2 mmoL/L (3.5-5.1); Sodium 134 mmol/L (136-145)
[2021-10-29 09:41] LABS: Blood Urea Nitrogen 13 mg/dl (7-17); Creatinine Clearance Estimated 121 mL/min (50-200); Estimated Glomerular Filt Rate 126 ml/min (>60); GFR (African American) 152 ML/MIN (>60)
[2021-10-29 09:42] LABS: Anion Gap 6.2 mEq/L (5-15); Calcium 8.7 mg/dl (8.4-10.2); Carbon Dioxide 34 mmol/L (22.0-30.0); Glucose 277 mg/dl (74-100)
[2021-10-29 09:44] LABS: Basophils % 1.4 % (0.1-2.0); Eosinophils % 0.3 % (0.1-12.0); Hematocrit 38.3 % (37.0-47.0); Hemoglobin 12.8 g/dL (12.2-16.2); Lymphocytes # 0.6 K/mm3 (0.7-4.5); Lymphocytes % 22.7 % (10-50); Mean Corpuscular HGB Conc 33.5 g/dL (31.8-35.4); Mean Corpuscular Hemoglobin 30.4 pg (27.0-31.2); Mean Corpuscular Volume 90.7 fl (81-99); Mean Platelet Volume 8.6 fl (7.4-10.4); Monocytes # 0.1 K/mm3 (0.1-1.0); Monocytes % 1.9 % (1.7-9.3); Neutrophils % 73.6 % (37.0-80.0); Platelet Count 152 K/mm3 (142-424); Red Blood Count 4.22 M/mm3 (4.20-5.40); Red Cell Distribution Width 13.9 % (11.5-17.5); White Blood Count 2.7 K/mm3 (4.8-10.8)
--- NOTE | 2021-10-29 10:12 | HMH.PHAINT ---
MEDICATION RECONCILIATION COMPLETE USING LIST FROM [facility] DIS[facility]GE AND EXTERNAL PHARMACY FILL HISTORY. PER JAIRO BURDICK, PATIENT STATES THAT SHE DOES NOT TAKE THE LINZESS (WAS FILLED IN SEPTEMBER AT THE PHARMACY).
--- NOTE | 2021-10-29 10:13 | HMH.PHAVTE ---
[facility] Pharmacy VTE Monitoring - Patient Demographics Admission date: 10/28/21 Report Date: 10/29/21 Time: 10:14 Allergies/Adverse Reactions: Patient Allergies Penicillins Allergy (Verified 10/12/21 22:13) Height: 1.7 m Weight: 64 kg Patient Problems: Current Active Problems Hypertension (Chronic) COPD exacerbation (Acute) Constipation (Chronic) Acute and chronic respiratory failure (Acute) COVID-19 virus infection (Acute) - VTE Risk Labs: VTE Related Lab Results Hgb 12.8 g/dL (12.2-16.2) 10/29/21 09:20 Hct 38.3 % (37.0-47.0) 10/29/21 09:20 Plt Count 152 K/mm3 (142-424) 10/29/21 09:20 BUN 13 mg/dl (7-17) 10/29/21 09:20 Creatinine 0.50 mg/dl (0.52-1.04) L 10/29/21 09:20 Estimated Creat Clear 121 mL/min (50-200) 10/29/21 09:20 Was VTE Risk Assessment Performed: Yes VTE Score: 4 VTE Risk Level: Low Risk Clinical Trial Participant: No - Prophylaxis VTE Prophylaxis Ordered?: Yes Types of VTE Prophylaxis: TEDS Knee High Location of Applied Device: Bilateral Lower Extremeties
--- NOTE | 2021-10-29 17:44 | PC.NURSE ---
Pt alert and oriented and able to make needs known. VSS. Pt remains on 3 L NC. Meds given per jul. NAD at this time. Mx continues.
[2021-10-30] VITALS (12 sets, daily range): BP systolic 104–133; BP diastolic 65–98; PULSE 62–128; RESP 17–20; TEMP 36.7–36.8; O2SAT 91–99; BMI 22.1
--- NOTE | 2021-10-30 04:44 | ECG_ITS ---
APPROVED REPORT Exam: Resting ECG HR:124 bpm ECG Measurements Heart Rate 124 AXES OH 128 P 84 QRSd 98 QRS 95 QT 292 T 65 QTc 365 Conclusion SINUS TACHYCARDIA BORDERLINE RIGHT AXIS DEVIATION [QRS AXIS > 90] ABNORMAL RHYTHM ECG UNCONFIRMED REPORT Electronically signed by : Case Barrios MD 10/30/2021 21:30:49
[2021-10-30 04:56] LABS: Basophils # 0.1 K/mm3 (0-0.2); Basophils % 0.9 % (0.1-2.0); Eosinophils # 0.2 K/mm3 (0.0-0.4); Eosinophils % 1.7 % (0.1-12.0); Hematocrit 42.7 % (37.0-47.0); Hemoglobin 13.8 g/dL (12.2-16.2); Lymphocytes # 1.3 K/mm3 (0.7-4.5); Lymphocytes % 12.1 % (10-50); Mean Corpuscular HGB Conc 32.2 g/dL (31.8-35.4); Mean Corpuscular Hemoglobin 29.8 pg (27.0-31.2); Mean Corpuscular Volume 92.7 fl (81-99); Mean Platelet Volume 9.1 fl (7.4-10.4); Monocytes # 0.3 K/mm3 (0.1-1.0); Monocytes % 2.9 % (1.7-9.3); Neutrophils # 9.1 K/mm3 (1.8-7.8); Neutrophils % 82.4 % (37.0-80.0); Platelet Count 205 K/mm3 (142-424); Red Blood Count 4.61 M/mm3 (4.20-5.40)
[2021-10-30 05:04] LABS: Alanine Aminotransferase 19 U/L (12-78); Albumin Level 4.1 g/dl (3.5-5.0); Albumin/Globulin Ratio 1.5 (1.1-1.8); Alkaline Phosphatase 52 U/L (38-126); Aspartate Amino Transferase 22 U/L (14-36); Bilirubin,Total 0.2 mg/dl (0.2-1.3); Blood Urea Nitrogen 16 mg/dl (7-17); Carbon Dioxide 36 mmol/L (22.0-30.0); Chloride 98 mmol/L (98-107); Creatinine Clearance Estimated 121 mL/min (50-200); Estimated Glomerular Filt Rate 126 ml/min (>60); GFR (African American) 152 ML/MIN (>60); Globulin 2.8 g/dL (1.3-3.2); Sodium 138 mmol/L (136-145); Total Protein,Serum 6.9 g/dl (6.3-8.2)
[2021-10-30 05:11] LABS: Glucose 155 mg/dl (74-100)
[2021-10-30 05:19] LABS: Troponin I < 0.01 ng/ml (0.00-0.034)
--- NOTE | 2021-10-30 05:24 | PC.NURSE ---
Went to room to administer Methylprednisolone 80mg IVP (held until after assessment r/t to increase in HR) and patient c/o pain 9/10 in right upper quadrant under diaphragm; breathing was labored increased O2 to 4L with O2 sat 93% HR 136 BP 165/101; patient asked to sit on side of bed with no relief of symptoms. EKG done per protocol, taken to ED for interpretation received v.o. from Dr. Marsh for Troponin to be drawn, Tordol 30mg IVP, Ativan 0.5mg IVP and the go ahead to give Methyprednisolone 80mg IVP per scheduled order. Reassessment after new meds administered - patient states pain level 3/10. Breathing not as labored; HR 113-126 BP 131/100 Patient shows no s/s of acute distress at this time; will continue to monitor.
--- NOTE | 2021-10-30 11:41 | P.PN_ITS ---
Internal Medicine - PN: Subj *Date: 10/30/21 *Time: 19:28 Interval history: doing better but still with episode of chest pain and tachycardia at night - Exam Vital signs and Labs for Last 24 Hours: Temp Pulse Resp BP Pulse Ox 98.1 F 93 H 17 115/80 96 10/30/21 07:56 10/30/21 10:31 10/30/21 07:56 10/30/21 07:56 10/30/21 10:31 Laboratory Results - last 24 hr 10/30/21 04:45: Sodium 138, Potassium 4.0, Chloride 98, Carbon Dioxide 36 H, Anion Gap 8.0, BUN 16, Creatinine 0.50 L, Estimated Creat Clear 121, Estimated GFR 126, Est GFR ( Amer) 152, Glucose 155 H D, Calcium 9.0, Total Bilirubin 0.2, AST 22, ALT 19, Alkaline Phosphatase 52, Troponin I < 0.01, Total Protein 6.9, Albumin 4.1, Globulin 2.8, Albumin/Globulin Ratio 1.5 10/30/21 04:45: WBC 11.0 H D, RBC 4.61, Hgb 13.8, Hct 42.7, MCV 92.7, MCH 29.8, MCHC 32.2, RDW 14.0, Plt Count 205 D, MPV 9.1, Neut % (Auto) 82.4 H, Lymph % (Auto) 12.1, [place] % (Auto) 2.9, Eos % (Auto) 1.7, Baso % (Auto) 0.9, Neut # (Auto) 9.1 H, Lymph # (Auto) 1.3, [place] # (Auto) 0.3, Eos # (Auto) 0.2, Baso # (Auto) 0.1 I & O for Last 24 hours: Intake & Output 10/27/21 10/28/21 10/29/21 10/30/21 11:59 11:59 11:59 11:59 Intake Total 390 / 390 960 / 960 Output Total 300 / 300 Balance 90 / 90 960 / 960 Weight 141 lb 1.533 oz 141 lb 1.533 oz - Constitutional no acute distress - *Routine HEENT Exam Head: Present: normocephalic Eye: Present: EOMI, PERRL ENT: Present: mucous membranes dry - *Routine Neck Exam Absent: JVD - *Routine Respiratory Exam Present: decreased breath sounds - *Routine Cardiovascular Exam Present: RRR - *Routine Abdominal Exam Present: soft - *Routine Extremities Exam Absent: calf tenderness - *Routine Skin Exam Present: intact - *Routine Neurological Exam Present: alert, CN II-XII intact - Routine Psychiatric Exam Present: normal affect Assessment and Plan (1) Acute and chronic respiratory failure Status: Acute Qualifiers: Respiratory failure complication: hypoxia and hypercapnia Qualified Code(s): J96.21 - Acute and chronic respiratory failure with hypoxia; J96.22 - Acute and chronic respiratory failure with hypercapnia Category: Medical Code(s): J96.20 - Acute and chronic respiratory failure, unspecified whether with hypoxia or hypercapnia (2) COVID-19 virus infection Status: Acute Category: Medical Code(s): U07.1 - COVID-19 (3) Constipation Status: Chronic Qualifiers: Constipation type: slow transit constipation Qualified Code(s): K59.01 - Slow transit constipation Category: Medical Code(s): K59.00 - Constipation, unspecified (4) Hypertension Status: Chronic Category: Medical Code(s): I10 - Essential (primary) hypertension (5) COPD (chronic obstructive pulmonary disease) Status: Chronic Qualifiers: COPD type: unspecified COPD Qualified Code(s): J44.9 - Chronic obstructive pulmonary disease, unspecified Category: Medical Code(s): J44.9 - Chronic obstructive pulmonary disease, unspecified
--- NOTE | 2021-10-30 11:42 | XR_ITS ---
PROCEDURE INFORMATION: Exam: XR Chest Exam date and time: 10/30/2021 12:40 PM Age: 61 years old Clinical indication: Patient HX: Shortness of breath, covid positive. Done portable. ; Additional info: Sob/covid-19 TECHNIQUE: Imaging protocol: XR of the chest. Views: 1 view. COMPARISON: CR XR CHEST PORTABLE 10/28/2021 5:11 PM FINDINGS: Lungs: See Diaphragm finding. Pleural spaces: Unremarkable. No pleural effusion. No pneumothorax. Heart/Mediastinum: Unremarkable. No cardiomegaly. Diaphragm: Hyperlucent changes are demonstrated. There is flattening of the hemidiaphragms. Increase in the lung volumes is demonstrated. Bones/joints: Chronic right rib fractures again demonstrated. IMPRESSION: No evidence of acute cardiopulmonary disease.
--- NOTE | 2021-10-30 19:15 | PC.NURSE ---
Pt had uneventful day. No change from last assessment.
[2021-10-31] VITALS (10 sets, daily range): BP systolic 111–148; BP diastolic 69–88; PULSE 78–120; RESP 16–20; TEMP 36.3–36.9; O2SAT 89–98; BMI 22.1
--- NOTE | 2021-10-31 05:22 | PC.NURSE ---
Pts 02 drops when she uses her IS. Then she will have coughing spell and her sats will drop below 80% and her heart rate will go above 120. But once it stops her hr returns to normal. Pt in bed all shift and continues on 3l of 02. did complain of pain and was given morphine and was effective. call ramos in hand and uses as needed.
[2021-10-31 06:52] LABS: Chloride 98 mmol/L (98-107); Sodium 137 mmol/L (136-145)
[2021-10-31 06:53] LABS: Potassium 4.3 mmoL/L (3.5-5.1)
[2021-10-31 06:55] LABS: Alanine Aminotransferase 17 U/L (12-78); Albumin Level 3.8 g/dl (3.5-5.0); Albumin/Globulin Ratio 1.4 (1.1-1.8); Alkaline Phosphatase 45 U/L (38-126); Anion Gap 6.3 mEq/L (5-15); Aspartate Amino Transferase 20 U/L (14-36); Bilirubin,Total 0.4 mg/dl (0.2-1.3); Blood Urea Nitrogen 20 mg/dl (7-17); Carbon Dioxide 37 mmol/L (22.0-30.0); Creatinine Clearance Estimated 121 mL/min (50-200); Estimated Glomerular Filt Rate 126 ml/min (>60); GFR (African American) 152 ML/MIN (>60); Globulin 2.8 g/dL (1.3-3.2); Total Protein,Serum 6.6 g/dl (6.3-8.2)
[2021-10-31 06:56] LABS: Calcium 8.9 mg/dl (8.4-10.2); Glucose 189 mg/dl (74-100)
--- NOTE | 2021-10-31 08:00 | CA_ITS ---
APPROVED REPORT EXAM: Comprehensive 2D, Doppler, and color-flow Echocardiogram Counseling Services Director: Padmini Du RDCS Ht: 5 ft 7 in Wt: 157lbs BSA: 1.82 BP: 000/00 mmHg Indications: SOA,CP 2D Dimensions LVOT 1.93 cm (M/F) 1.5-2.5 M-Mode Dimensions RVDd 2.21 cm (0.9-2.6) LA Diam 3.19 cm (1.9-4.0) LVDd 4.93 cm (3.5-5.7) Ao Diam 3.03 cm (2.0-3.7) LVDs 3.69 cm (3.5-5.7) IVSd 0.87 cm (0.6-1.1) PWd 0.84 cm (0.6-1.1) EF (Teich) 49.50% FS 25.20% EDV (Teich) 114.40 mL ESV (Teich) 57.80 mL LV Diastology E Decel Time 137.00 (160-240 msec) E/A Ratio 0.7 MED E' 9.10 (< 7 cm/sec) E'/MED E' Ratio 7.78 (>14) LAT E' 10.70 (<10 cm/sec) E/LAT E' Ratio 6.62 (>14) Aortic Valve LVOT Max 126.00 (70-110 cm/s) LVOT VTI 22.91 cm AoV Peak Kwasi. 120.00 (50-130 cm/s) AO Peak GR. 5.80 mmHg AO Mean GR. 2.90 (<5 mmHg) AO VTI 18.71 (18-25 cm) SAL (VTI) 3.58 (2.5-4.5 cm2) Mitral Valve MV E Max Kwasi. 71.00 (40-130 cm/s) MV A Velocity 96.00 (40-130 cm/s) E/A Ratio 0.74 MV Decel. Time 137.00 (160-240 ms) MV PHT 40.00 ms Left Ventricle Left atrium is mildly enlarged, left ventricle normal size, left ventricle wall thickness is upper limit of the normal, preserved left ventricular systolic function, estimated ejection fraction 55% with no regional wall motion abnormality, Doppler evidence of impaired LV relaxation seen. Right Ventricle Right atrium and right ventricle are normal size and contractility. Aortic Valve Aortic valve is minimally thickened and fibrosed there is no aortic stenosis or aortic insufficiency. Mitral Valve Mitral valve grossly normal, there is trace mitral regurgitation. Tricuspid Valve Tricuspid grossly normal, there is trace tricuspid regurgitation, tricuspid regurgitation jet velocity is inadequate for calculation of the right ventricular systolic pressure. Pulmonic Valve Pulmonic valve is poorly visualized. Great Vessels Aortic root is normal size. Inferior vena cava is poorly visualized. Pericardium No significant pericardial effusion noted. Conclusion 1. Normal left ventricular size, preserved left ventricular systolic function, estimated ejection fraction 55% with no regional wall motion abnormality, Doppler evidence of impaired LV relaxation. 2. Trace mitral and tricuspid regurgitation. 3. No significant pericardial effusion. 4. Inferior vena cava is poorly visualized. Electronically signed by : Shahid Rebolledo MD 10/31/2021 19:39:17
--- NOTE | 2021-10-31 10:26 | HMH.ACPN2 ---
Internal Medicine - PN: Subj *Date: 10/31/21 *Time: 09:50 Exam Vital signs and Labs for Last 24 Hours: Temp Pulse Resp BP Pulse Ox 98.5 F 100 H 18 111/69 90 L 10/31/21 08:00 10/31/21 08:00 10/31/21 08:00 10/31/21 08:00 10/31/21 08:00 Laboratory Results - last 24 hr 10/31/21 06:30: Sodium 137, Potassium 4.3, Chloride 98, Carbon Dioxide 37 H, Anion Gap 6.3, BUN 20 H, Creatinine 0.50 L, Estimated Creat Clear 121, Estimated GFR 126, Est GFR ( Amer) 152, Glucose 189 H, Calcium 8.9, Total Bilirubin 0.4, AST 20, ALT 17, Alkaline Phosphatase 45, Total Protein 6.6, Albumin 3.8, Globulin 2.8, Albumin/Globulin Ratio 1.4 I & O for Last 24 hours: Intake & Output 10/28/21 10/29/21 10/30/21 10/31/21 11:59 11:59 11:59 11:59 Intake Total 390 / 390 960 / 960 720 / 720 Output Total 300 / 300 Balance 90 / 90 960 / 960 720 / 720 Weight 141 lb 1.533 oz 141 lb 1.533 oz 141 lb 1.533 oz - Constitutional no acute distress - *Routine HEENT Exam Head: Present: normocephalic Eye: Present: PERRL ENT: Present: mucous membranes moist - *Routine Neck Exam Present: supple. Absent: lymphadenopathy - *Routine Respiratory Exam Present: rhonchi - *Routine Cardiovascular Exam Present: RRR - *Routine Abdominal Exam Present: soft, normoactive bowel sounds. Absent: tenderness - *Routine Extremities Exam Absent: cyanosis, clubbing, edema - *Routine Skin Exam Present: warm. Absent: rash - *Routine Neurological Exam Present: alert, oriented X3 Assessment and Plan (1) Acute and chronic respiratory failure Status: Acute Qualifiers: Respiratory failure complication: hypoxia and hypercapnia Qualified Code(s): J96.21 - Acute and chronic respiratory failure with hypoxia; J96.22 - Acute and chronic respiratory failure with hypercapnia Category: Medical Code(s): J96.20 - Acute and chronic respiratory failure, unspecified whether with hypoxia or hypercapnia (2) COVID-19 virus infection Status: Acute Category: Medical Code(s): U07.1 - COVID-19 (3) Constipation Status: Chronic Qualifiers: Constipation type: slow transit constipation Qualified Code(s): K59.01 - Slow transit constipation Category: Medical Code(s): K59.00 - Constipation, unspecified (4) Hypertension Status: Chronic Category: Medical Code(s): I10 - Essential (primary) hypertension (5) COPD (chronic obstructive pulmonary disease) Status: Chronic Qualifiers: COPD type: unspecified COPD Qualified Code(s): J44.9 - Chronic obstructive pulmonary disease, unspecified Category: Medical Code(s): J44.9 - Chronic obstructive pulmonary disease, unspecified - Assessment and plan all Dx Assessment and Plan for all problems:: rounded with dr oakes all orders per dr oakes continue all care wean o2 oob
[2021-11-01] VITALS (11 sets, daily range): BP systolic 94–134; BP diastolic 54–80; PULSE 89–116; RESP 16–20; TEMP 36.3–36.8; O2SAT 91–97; BMI 20.7
[2021-11-01 07:00] LABS: Basophils % 0.3 % (0.1-2.0); Eosinophils % 0.2 % (0.1-12.0); Hematocrit 37.7 % (37.0-47.0); Hemoglobin 12.9 g/dL (12.2-16.2); Lymphocytes % 9.8 % (10-50); Mean Corpuscular HGB Conc 34.1 g/dL (31.8-35.4); Mean Corpuscular Hemoglobin 30.7 pg (27.0-31.2); Mean Platelet Volume 8.8 fl (7.4-10.4); Monocytes # 0.5 K/mm3 (0.1-1.0); Monocytes % 4.9 % (1.7-9.3); Neutrophils # 8.6 K/mm3 (1.8-7.8); Neutrophils % 84.8 % (37.0-80.0); Platelet Count 187 K/mm3 (142-424); Red Blood Count 4.19 M/mm3 (4.20-5.40); Red Cell Distribution Width 13.8 % (11.5-17.5); White Blood Count 10.1 K/mm3 (4.8-10.8)
--- NOTE | 2021-11-01 07:06 | PC.NURSE ---
Pt alert and oriented. Continues to c/o lung pain. Morphine effective. cont of urine. remains on 3 l.
[2021-11-01 07:08] LABS: Chloride 97 mmol/L (98-107); Sodium 136 mmol/L (136-145)
[2021-11-01 07:11] LABS: Alanine Aminotransferase 15 U/L (12-78); Albumin Level 3.4 g/dl (3.5-5.0); Albumin/Globulin Ratio 1.4 (1.1-1.8); Alkaline Phosphatase 40 U/L (38-126); Aspartate Amino Transferase 18 U/L (14-36); Bilirubin,Total 0.3 mg/dl (0.2-1.3); Blood Urea Nitrogen 21 mg/dl (7-17); Calcium 8.5 mg/dl (8.4-10.2); Carbon Dioxide 39 mmol/L (22.0-30.0); Creatinine Clearance Estimated 114 mL/min (50-200); Estimated Glomerular Filt Rate 126 ml/min (>60); GFR (African American) 152 ML/MIN (>60); Globulin 2.4 g/dL (1.3-3.2); Glucose 197 mg/dl (74-100); Total Protein,Serum 5.8 g/dl (6.3-8.2)
--- NOTE | 2021-11-01 09:26 | HMH.ACPN2 ---
Internal Medicine - PN: Subj *Date: 11/01/21 *Time: 10:35 Interval history: 61-year-old female patient sitting up in bed resting quietly with eyes closed, awakens to verbal stimuli. Current oxygenation status 93% on 4 L per nasal cannula. She does report respiratory is better today but still extremely tired and increased shortness of breath when up. Exam Vital signs and Labs for Last 24 Hours: Temp Pulse Resp BP Pulse Ox 97.9 F 107 H 16 118/70 95 11/01/21 08:00 11/01/21 08:00 11/01/21 08:00 11/01/21 08:00 11/01/21 08:00 Laboratory Results - last 24 hr 11/01/21 06:43: Sodium 136, Potassium 4.0, Chloride 97 L, Carbon Dioxide 39 H, Anion Gap 4.0 L, BUN 21 H, Creatinine 0.50 L, Estimated Creat Clear 114, Estimated GFR 126, Est GFR ( Amer) 152, Glucose 197 H, Calcium 8.5, Total Bilirubin 0.3, AST 18, ALT 15, Alkaline Phosphatase 40, Total Protein 5.8 L, Albumin 3.4 L D, Globulin 2.4, Albumin/Globulin Ratio 1.4 11/01/21 06:43: WBC 10.1, RBC 4.19 L, Hgb 12.9, Hct 37.7, MCV 90.0, MCH 30.7, MCHC 34.1, RDW 13.8, Plt Count 187, MPV 8.8, Neut % (Auto) 84.8 H, Lymph % (Auto) 9.8 L, [place] % (Auto) 4.9, Eos % (Auto) 0.2, Baso % (Auto) 0.3, Neut # (Auto) 8.6 H, Lymph # (Auto) 1.0, [place] # (Auto) 0.5, Eos # (Auto) 0.0, Baso # (Auto) 0.0 I & O for Last 24 hours: Intake & Output 10/29/21 10/30/21 10/31/21 11/01/21 23:59 23:59 23:59 23:59 Intake Total 1110 / 1110 720 / 720 720 / 720 240 / 240 Output Total 300 / 300 Balance 810 / 810 720 / 720 720 / 720 240 / 240 Weight 141 lb 1.533 oz 141 lb 1.533 oz 141 lb 1.533 oz 132 lb 7.965 oz - Constitutional no acute distress - *Routine HEENT Exam Head: Present: normocephalic Eye: Present: EOMI ENT: Present: mucous membranes moist - *Routine Neck Exam Present: trachea midline. Absent: tracheal deviation - *Routine Respiratory Exam Present: accessory muscle use, rhonchi - *Routine Cardiovascular Exam Present: RRR - *Routine Abdominal Exam Present: soft, normoactive bowel sounds. Absent: tenderness, rebound - *Routine Extremities Exam Present: full ROM, pulses intact. Absent: cyanosis, clubbing - *Routine Skin Exam Present: intact, dry. Absent: cyanosis, erythema - *Routine Neurological Exam Present: alert, oriented X3. Absent: motor deficit - Routine Psychiatric Exam Present: normal affect, normal thought process. Absent: auditory hallucinations Assessment and Plan (1) Acute and chronic respiratory failure Status: Acute Qualifiers: Respiratory failure complication: hypoxia and hypercapnia Qualified Code(s): J96.21 - Acute and chronic respiratory failure with hypoxia; J96.22 - Acute and chronic respiratory failure with hypercapnia Category: Medical Code(s): J96.20 - Acute and chronic respiratory failure, unspecified whether with hypoxia or hypercapnia (2) COVID-19 virus infection Status: Acute Category: Medical Code(s): U07.1 - COVID-19 (3) Constipation Status: Chronic Qualifiers: Constipation type: slow transit constipation Qualified Code(s): K59.01 - Slow transit constipation Category: Medical Code(s): K59.00 - Constipation, unspecified (4) Hypertension Status: Chronic Category: Medical Code(s): I10 - Essential (primary) hypertension (5) COPD (chronic obstructive pulmonary disease) Status: Chronic Qualifiers: COPD type: unspecified COPD Qualified Code(s): J44.9 - Chronic obstructive pulmonary disease, unspecified Category: Medical Code(s): J44.9 - Chronic obstructive pulmonary disease, unspecified - Assessment and plan all Dx Assessment and Plan for all problems:: Rounded with Dr. Marsh, all orders per Salma: 1. Continue to wean O2 2. PT/OT evaluation
--- NOTE | 2021-11-01 09:29 | HMH.OTEV ---
OT Inpatient Evaluation Rehab OT IP Evaluation Start: 11/01/21 08:20 Freq: ONCE Status: Complete Protocol: Document 11/01/21 09:17 FAMILIA (Rec: 11/01/21 09:28 [facility] [id number]) Rehab OT IP Assessment Subjective History Pt oriented x 3 on arrival. Pt agreeable to engage in therapy evaluation. Pt was admitted via ED on 10/28/21 due to COVID. Pt reports prior to being in the hospital she lived at home with her sister. Pt claims she was dependent upon 2L of o2 at all times. She was independent with ADLs such as feeding, dressing, and bathing. However, she was dependent upon her sister to complete all IADLs. She did use a walker during ambulation . She has 5 steps in her home . The following information was copied from history and physical report: this patient presented to the ed - pt presents to ED c/o SOA x 3 days. pt states she has a hx of COPD and wears 2LNC at home. pt reports nonproductive cough, denies fever Patient arrives by ambulance. 2 to 3-day history of chest congestion and shortness of breath. She has COPD and is oxygen dependent at 2 L. For the past couple of days she says that she is so short of breath she cannot even walk across the room. Says that she is coughing but unable to bring anything up, feels like there is stuff in there that will not come up. Temperature not taken at home. She has had some rhinorrhea. Denies chest pain. No known exposure to COVID. She has not been vaccinated against COVID. She is a former smoker. She uses nebulizer treatments every 4
--- NOTE | 2021-11-01 09:50 | HMH.PTEV ---
Physical Therapy Evaluation Rehab PT IP Evaluation Start: 11/01/21 08:20 Freq: .once Status: Active Protocol: Document 11/01/21 09:28 PHORNE (Rec: 11/01/21 09:50 PHORNE [id number]) Subjective/History History History 61 yowf adm to [facility] with COVID COPD exac. She reports she uses oxygen via NC at 2 L/min at all times at baseline. She lives with her sister with 5 steps to enter the home and is generally independent with ambulation using a RW. Subjective Subjective She reports feeling weak this am and is concerned about moving because it takes her a long time to catch her breath. Rehab PT IP Eval Objective Appearance Patient Behavior Appropriate Patient Orientation Person,Place,Time Difficulty following instructions none Speech Pattern Clear Ambulation Patient Able to Ambulate Yes Ambulation Observation IP General Gait Pattern Observation Shuffling Step Ambulation Distance (feet) 3 Ambulation Assistive Device None Ambulation Ability Minimal x 2 (25% assist) Balance Ability to Arise Able, uses arms to help Sitting Balance Steady, safe Standing Balance Steady, wide stance Dynamic Sitting Balance Ability Good Dynamic Standing Balance Ability Fair Transfers Bed Transfer Ability Contact Guard/Hand Hold Chair Transfer Ability Minimal x 1 (25% assist) Sit to Stand Bed Transfer Ability Minimal x 1 (25% assist) Sit to Stand Chair Transfer Ability Minimal x 1 (25% assist) Rehab PT IP prob,goals,plan Problems Date of Evaluation: 11/01/21 PT IP Problems Bed Mobility,Transfers,Gait, Self care Rehab Potential Rehab Potential Good Plan PT Intervention Plan Bed Mobility,Transfers,Gait, Self care,Therapeutic Exercise PT Plan Frequency BID Duration LOS Discharge Goals Bed Transfer Ability Supervision/Stand by Sit to Stand Chair Transfer Ability Contact Guard/Hand Hold Ambulation Assistive Device Rolling Walker Ambulation Distance (feet) 25 Discharge Plan PT Discharge Plan Pt is most appropriate for rehab placement at this time. She may be able to return home if ambulation distance and endurance improves. G -code Required No Eval Complexi
--- NOTE | 2021-11-01 10:19 | PC.NURSE ---
Bath status patient refused bath. she did not want one becuase she had one yesterday
--- NOTE | 2021-11-01 13:03 | SW/DCPLANNER ---
Addendum entered by [facility] 11/04/21 10:45: Yohana vargas/ Matthew at [place] stated that she can accept this patient and services will begin over the weekend. Addendum entered by [facility] 11/03/21 14:44: Patient information/order will be faxed to Yohana at [facility]. Addendum entered by [facility] 11/03/21 14:20: Patient's family will now transport patient. Addendum entered by [facility] 11/03/21 13:54: Haleigh vargas/ [facility] stated they will deliver this patient a portable O2 tank for transport home. Once O2 tank is delivered I will set up [employer]. Addendum entered by [facility] 11/02/21 13:51: This patient has decided to discharge home at time of discharge. I have called and updated patient's sister that she lives with regarding discharge plans of returning home. Patient is expected to discharge home tomorrow. Patient is agreeable to home health services at time of discharge. Addendum entered by [facility] 11/01/21 13:58: I did speak with this patient in room this afternoon. Patient stated that she prefer to discharge home once medically stable. Patient stated that she resides at home with her sister, has home O2 at 2L and using a rolling walker at home. Patient is unsure if she is agreeable to home health services and will speak with her sister about services at home. I will follow up with this patient tomorrow morning. Original Note: I have attempted to contact patient's daughter regarding plans once medically stable for discharge: no answer at this time. I will continue to try to get in contact with patient's daughter.
--- NOTE | 2021-11-01 17:35 | PC.NURSE ---
PT IS ALERT AND ORIENTED X4. SHE IS STILL REQUIRING 3L O2 PER NASAL CANNULA. SHE STATES THAT SHE IS, FEELING A BIT BETTER TODAY . SHE WAS MEDICATED X2 FOR LUNG PAIN. PT DID GET UP TO THE CHAIR FOR ABOUT 5 HOURS THIS SHIFT. SHE REMAINS SINUS TACH ON TELE. NO FURTHER COMPLAINTS AT THIS TIME.
[2021-11-02] VITALS (10 sets, daily range): BP systolic 95–145; BP diastolic 64–81; PULSE 71–112; RESP 16–26; TEMP 36.4–36.7; O2SAT 92–97; BMI 21.6
--- NOTE | 2021-11-02 05:36 | PC.NURSE ---
Pt appears better today. Pt stated that she felt better today, Pt continues to need pain medication for rib/lung pain. Noted moist cough that was non productive. Pt cont of bladder and rings for assistance.
[2021-11-02 07:02] LABS: Chloride 96 mmol/L (98-107); Sodium 136 mmol/L (136-145)
[2021-11-02 07:04] LABS: Alanine Aminotransferase 16 U/L (12-78); Aspartate Amino Transferase 18 U/L (14-36); Blood Urea Nitrogen 19 mg/dl (7-17); Creatinine Clearance Estimated 118 mL/min (50-200); Estimated Glomerular Filt Rate 126 ml/min (>60); GFR (African American) 152 ML/MIN (>60)
[2021-11-02 07:05] LABS: Albumin Level 3.4 g/dl (3.5-5.0); Albumin/Globulin Ratio 1.5 (1.1-1.8); Alkaline Phosphatase 36 U/L (38-126); Bilirubin,Total 0.3 mg/dl (0.2-1.3); Calcium 8.5 mg/dl (8.4-10.2); Globulin 2.2 g/dL (1.3-3.2); Glucose 217 mg/dl (74-100); Total Protein,Serum 5.6 g/dl (6.3-8.2)
[2021-11-02 07:12] LABS: Carbon Dioxide 38 mmol/L (22.0-30.0)
[2021-11-02 08:37] LABS: Basophils % 0.2 % (0.1-2.0); Eosinophils % 0.3 % (0.1-12.0); Hematocrit 37.2 % (37.0-47.0); Hemoglobin 12.3 g/dL (12.2-16.2); Lymphocytes # 0.6 K/mm3 (0.7-4.5); Mean Corpuscular Hemoglobin 30.1 pg (27.0-31.2); Mean Platelet Volume 9.9 fl (7.4-10.4); Monocytes # 0.3 K/mm3 (0.1-1.0); Monocytes % 3.6 % (1.7-9.3); Neutrophils # 6.1 K/mm3 (1.8-7.8); Neutrophils % 87.9 % (37.0-80.0); Platelet Count 196 K/mm3 (142-424); Red Blood Count 4.09 M/mm3 (4.20-5.40); Red Cell Distribution Width 13.8 % (11.5-17.5)
[2021-11-02 08:38] LABS: MANUAL DIFFERENTIAL MANUAL DIFFERENTIAL (MANUAL DIFF)
[2021-11-02 08:59] LABS: Lymphocytes % 10 % (10-50); Monocytes % 3 % (2-9); Neutrophils % 87 % (42-76); Total Cells Counted 100
[2021-11-02 09:00] LABS: Platelet Estimate Normal
[2021-11-02 09:01] LABS: Ovalocytes 1+; Stomatocytes 1+
--- NOTE | 2021-11-02 11:17 | P.PN_ITS ---
Internal Medicine - PN: Subj *Date: 11/02/21 *Time: 11:17 Exam Vital signs and Labs for Last 24 Hours: Temp Pulse Resp BP Pulse Ox 98.1 F 97 H 21 108/76 L 95 11/02/21 11:12 11/02/21 11:12 11/02/21 11:12 11/02/21 11:12 11/02/21 11:12 Laboratory Results - last 24 hr 11/02/21 06:41: Sodium 136, Potassium 4.0, Chloride 96 L, Carbon Dioxide 38 H, Anion Gap 6.0, BUN 19 H, Creatinine 0.50 L, Estimated Creat Clear 118, Estimated GFR 126, Est GFR ( Amer) 152, Glucose 217 H, Calcium 8.5, Total Bilirubin 0.3, AST 18, ALT 16, Alkaline Phosphatase 36 L, Total Protein 5.6 L, Albumin 3.4 L, Globulin 2.2, Albumin/Globulin Ratio 1.5 11/02/21 06:41: WBC 7.0 D, RBC 4.09 L, Hgb 12.3, Hct 37.2, MCV 91.0, MCH 30.1, MCHC 33.0, RDW 13.8, Plt Count 196, MPV 9.9, Neut % (Auto) 87.9 H, Lymph % (Auto) 8.0 L, [place] % (Auto) 3.6, Eos % (Auto) 0.3, Baso % (Auto) 0.2, Neut # (Auto) 6.1, Lymph # (Auto) 0.6 L, [place] # (Auto) 0.3, Eos # (Auto) 0.0, Baso # (Auto) 0.0, Total Counted 100, Neutrophils % (Manual) 87 H, Lymphocytes % (Manual) 10, Monocytes % (Manual) 3, Platelet Estimate Normal, Ovalocytes 1+, Stomatocytes 1+ I & O for Last 24 hours: Intake & Output 10/30/21 10/31/21 11/01/21 11/02/21 23:59 23:59 23:59 23:59 Intake Total 720 / 720 720 / 720 420 / 420 Output Total 400 / 400 Balance 720 / 720 720 / 720 20 / 20 Weight 64 kg 64 kg 60.1 kg 62.5 kg Assessment and Plan (1) Acute and chronic respiratory failure Status: Acute Qualifiers: Respiratory failure complication: hypoxia and hypercapnia Qualified Code(s): J96.21 - Acute and chronic respiratory failure with hypoxia; J96.22 - Acute and chronic respiratory failure with hypercapnia Category: Medical Code(s): J96.20 - Acute and chronic respiratory failure, unspecified whether with hypoxia or hypercapnia (2) COVID-19 virus infection Status: Acute Category: Medical Code(s): U07.1 - COVID-19 (3) Constipation Status: Chronic Qualifiers: Constipation type: slow transit constipation Qualified Code(s): K59.01 - Slow transit constipation Category: Medical Code(s): K59.00 - Constipation, unspecified (4) Hypertension Status: Chronic Category: Medical Code(s): I10 - Essential (primary) hypertension (5) COPD (chronic obstructive pulmonary disease) Status: Chronic Qualifiers: COPD type: unspecified COPD Qualified Code(s): J44.9 - Chronic obstructive pulmonary disease, unspecified Category: Medical Code(s): J44.9 - Chronic obstructive pulmonary disease, unspecified The patient's infection will respond to the chosen ABx?: Yes Is the patient receiving the right drug, dose, and route?: Yes Could a more targeted ABx be ordered?: No
--- NOTE | 2021-11-02 11:23 | HMH.PULMCON ---
*Admission Date: 10/28/21 *Reason for consult:: Acute on chronic hypoxic respiratory failure, COVID-19 pneumonia *History of present illness: Ms. Aviles is a 61-year-old female greater than 47-[id number]-jprq smoking/smoked around 2018, carries a diagnosis COPD on long-term oxygen therapy 2 L presented to the hospital worsening respiratory distress and found to be having COVID-19 pneumonia and pulmonary was called for further management [facility] History Medical History: Reports:: Chronic Obstructive Pulmonary Disease (COPD), Hypertension Denies:: Cancer, Diabetes Mellitus Type 1, Diabetes Mellitus Type 2, MRSA, Seizures *Have you ever received a pneumonia vaccine?: No *Have you received a flu vaccine this season?: No Other Medical History: Reports: Other (chronic neck and back pain due to DJD/DDD) Laterality Cases: Bilateral: Tonsillectomy Other Surgeries: Yes: Appendectomy, Cholecystectomy, Colonoscopy, Hysterectomy-Total, Tubal Ligation Amputation: No Fractures: Yes (Bilat pinky toes, back T11 T12) - *Social History Last grade of school completed: High school graduate Smoking Status: Former smoker Tobacco Type: cigarettes # Packs/Day (cigarettes): 3 #Yrs smoked (if former smoker): 44 Alcohol Intake: never Substance Use Type: denies use *Occupational Status:: retired Housing: apartment Household Members: other *Travel in the last 8 weeks: None Family Hx:: Cancer, Diabetes, Heart Attack, Hyperlipidemia, Hypertension, Kidney Disease ROS - Cons Reports anorexia, Reports body ache(s), Reports fatigue - Eyes Reports blurry vision - ENT Denies bleeding gums - Card Reports shortness of breath, Reports shortness of breath with activity - Resp Respiratory: Reports chest congestion, Reports cough, Reports cough with sputum production, Denies wheezing Comments: distant breath sounds - GI Gastrointestingal: Denies: abdominal pain - [place] Musculoskeletal: Reports back pain - Psych Denies thoughts of hurting/killing others, Denies thoughts of hurting/killing yourself Meds Home Medications Medication Instructions Recorded Confirmed Type Ipratropium/Albuterol Sulfate 1 puff PO QIDP PRN 02/18/19 10/28/21 History [Combivent Respimat Inh] Tizanidine HCl 4 - 8 mg PO QID 02/18/19 10/28/21 History Montelukast Sodium 10 mg PO HS 10/02/20 10/28/21 History Fexofenadine HCl 180 mg PO DAILY 10/12/21 10/28/21 History lisinopriL [Lisinopril] 10 mg PO DAILY 10/12/21 10/28/21 History Ergocalciferol (Vitamin D2) 50,000 units PO WEEKLY 10/13/21 10/28/21 History [Drisdol 50,000 units (1.25mg) capsule] Gabapentin [Neurontin 600mg 600 mg PO QID 10/13/21 10/28/21 History tablet] Sertraline HCl [Zoloft 100mg 100 mg PO DAILY 10/13/21 10/28/21 History tablet] Acetaminophen [Acetaminophen 325mg 650 mg PO Q4HP PRN tab 10/15/21 10/28/21 Rx tab] Sennosides/Docusate Sodium 2 each PO BIDP PRN 10/29/21 10/29/21 History [Senokot-S Tablet] Allergies Allergy/AdvReac Type Severity Reaction Status Date / Time Penicillins Allergy Verified 10/12/21 22:13 Exam - Constitutional Constitutional:: Present: no acute distress - HENMT Exam HENMT: Present: normocephalic - Eye Exam Eyes:: Present: normal appearance both eyes and related structures - Neck Exam Neck:: Present: normal visual inspection - Respiratory Exam Respiratory:: Present: able to speak in complete sentences, respiratory distress. Absent: wheezing - Cardiovascular Exam Cardiac:: Present: S1, S2 - GI Exam GI:: Present: soft - Skin Exam Skin: Present: warm, no rash - Neurological Exam Neurological: Present: alert, awake - Extremities Exam Extremities: Present: no cyanosis, no clubbing, no edema Internal Medicine - CN: Reslt - Labs CBC & Chem 7: 11/02/21 06:41 11/02/21 06:41 Labs: Short CBC 11/02/21 Range/Units 06:41 WBC 7.0 D (4.8-10.8) K/mm3 Hgb 12.3 (12.2-16.2) g/dL Hct 37.2 (37.0-47.0) %
--- NOTE | 2021-11-02 11:26 | CA_ITS ---
FINAL REPORT CLINICAL HISTORY: Hypoxia,COVID FINDINGS: Color Doppler, duplex Doppler and compression sonography of the bilateral lower extremities was performed. There is no evidence of deep venous thrombosis from the level of the groin to the calf. The deep veins are patent and compressible. IMPRESSION: No evidence of deep venous thrombosis bilateral lower extremities. Reviewed, Interpreted and Dictated by Adriel Root III, MD Transcribed by Mita Hastings Authenticated and . [facility]
--- NOTE | 2021-11-02 13:29 | HMH.ACPN2 ---
Internal Medicine - PN: Subj *Date: 11/02/21 *Time: 09:50 Interval history: pt states she would like rehab short term Exam Vital signs and Labs for Last 24 Hours: Temp Pulse Resp BP Pulse Ox 98.1 F 112 H 21 108/76 L 93 L 11/02/21 11:12 11/02/21 12:03 11/02/21 11:12 11/02/21 11:12 11/02/21 12:03 Laboratory Results - last 24 hr 11/02/21 06:41: Sodium 136, Potassium 4.0, Chloride 96 L, Carbon Dioxide 38 H, Anion Gap 6.0, BUN 19 H, Creatinine 0.50 L, Estimated Creat Clear 118, Estimated GFR 126, Est GFR ( Amer) 152, Glucose 217 H, Calcium 8.5, Total Bilirubin 0.3, AST 18, ALT 16, Alkaline Phosphatase 36 L, Total Protein 5.6 L, Albumin 3.4 L, Globulin 2.2, Albumin/Globulin Ratio 1.5 11/02/21 06:41: WBC 7.0 D, RBC 4.09 L, Hgb 12.3, Hct 37.2, MCV 91.0, MCH 30.1, MCHC 33.0, RDW 13.8, Plt Count 196, MPV 9.9, Neut % (Auto) 87.9 H, Lymph % (Auto) 8.0 L, [place] % (Auto) 3.6, Eos % (Auto) 0.3, Baso % (Auto) 0.2, Neut # (Auto) 6.1, Lymph # (Auto) 0.6 L, [place] # (Auto) 0.3, Eos # (Auto) 0.0, Baso # (Auto) 0.0, Total Counted 100, Neutrophils % (Manual) 87 H, Lymphocytes % (Manual) 10, Monocytes % (Manual) 3, Platelet Estimate Normal, Ovalocytes 1+, Stomatocytes 1+ I & O for Last 24 hours: Intake & Output 10/31/21 11/01/21 11/02/21 11/03/21 11:59 11:59 11:59 11:59 Intake Total 720 / 720 720 / 720 180 / 180 240 / 240 Output Total 400 / 400 Balance 720 / 720 720 / 720 -220 / -220 240 / 240 Weight 141 lb 1.533 oz 132 lb 7.965 oz 137 lb 12.623 oz - Constitutional no acute distress, thin - *Routine HEENT Exam Head: Present: normocephalic Eye: Present: PERRL ENT: Present: mucous membranes moist - *Routine Neck Exam Present: supple. Absent: lymphadenopathy - *Routine Respiratory Exam Present: wheezes - *Routine Cardiovascular Exam Present: RRR - *Routine Abdominal Exam Present: soft, normoactive bowel sounds. Absent: tenderness - *Routine Extremities Exam Absent: cyanosis, clubbing, edema - *Routine Skin Exam Present: warm. Absent: rash - *Routine Neurological Exam Present: alert, oriented X3 Assessment and Plan (1) Acute and chronic respiratory failure Status: Acute Qualifiers: Respiratory failure complication: hypoxia and hypercapnia Qualified Code(s): J96.21 - Acute and chronic respiratory failure with hypoxia; J96.22 - Acute and chronic respiratory failure with hypercapnia Category: Medical Code(s): J96.20 - Acute and chronic respiratory failure, unspecified whether with hypoxia or hypercapnia (2) COVID-19 virus infection Status: Acute Category: Medical Code(s): U07.1 - COVID-19 (3) Constipation Status: Chronic Qualifiers: Constipation type: slow transit constipation Qualified Code(s): K59.01 - Slow transit constipation Category: Medical Code(s): K59.00 - Constipation, unspecified (4) Hypertension Status: Chronic Category: Medical Code(s): I10 - Essential (primary) hypertension (5) COPD (chronic obstructive pulmonary disease) Status: Chronic Qualifiers: COPD type: unspecified COPD Qualified Code(s): J44.9 - Chronic obstructive pulmonary disease, unspecified Category: Medical Code(s): J44.9 - Chronic obstructive pulmonary disease, unspecified - Assessment and plan all Dx Assessment and Plan for all problems:: rounded with dr oakes all orders per dr lou mcintosh
--- NOTE | 2021-11-02 18:39 | PC.NURSE ---
Pt remains on 3 L NC. VSS. CB in reach. Have given meds per jul.
[2021-11-03] VITALS: BP 92/57; PULSE 74; PULSE 85; RESP 19; TEMP 36.7; O2SAT 90
[2021-11-03 04:00] VITALS: BP 108/66; PULSE 100; PULSE 83; RESP 20; TEMP 36.8; O2SAT 97
--- NOTE | 2021-11-03 04:27 | PC.NURSE ---
pt rested well after being medicated x2 through the night, pt complains of same pain in chest area; lung sounds diminished, pt alert and oriented x4; 02 sats 97% on 02 at 3L; no other issues or concerns this shift; VSS; privacy attorney reveals NSR
[2021-11-03 04:33] VITALS: PULSE 77; PULSE 79; O2SAT 94
[2021-11-03 05:00] VITALS: BMI 21.4
[2021-11-03 07:26] LABS: Basophils # 0.1 K/mm3 (0-0.2); Basophils % 0.7 % (0.1-2.0); Eosinophils # 0.1 K/mm3 (0.0-0.4); Hematocrit 36.8 % (37.0-47.0); Hemoglobin 12.4 g/dL (12.2-16.2); Lymphocytes # 2.5 K/mm3 (0.7-4.5); Lymphocytes % 33.9 % (10-50); Mean Corpuscular HGB Conc 33.8 g/dL (31.8-35.4); Mean Corpuscular Volume 88.7 fl (81-99); Mean Platelet Volume 8.9 fl (7.4-10.4); Monocytes # 0.6 K/mm3 (0.1-1.0); Monocytes % 7.5 % (1.7-9.3); Neutrophils # 4.2 K/mm3 (1.8-7.8); Neutrophils % 56.9 % (37.0-80.0); Platelet Count 217 K/mm3 (142-424); Red Blood Count 4.14 M/mm3 (4.20-5.40); Red Cell Distribution Width 13.9 % (11.5-17.5); White Blood Count 7.3 K/mm3 (4.8-10.8)
[2021-11-03 07:41] LABS: Chloride 95 mmol/L (98-107); Sodium 136 mmol/L (136-145)
[2021-11-03 07:43] LABS: Alanine Aminotransferase 17 U/L (12-78); Alkaline Phosphatase 35 U/L (38-126); Aspartate Amino Transferase 27 U/L (14-36); Bilirubin,Total 0.4 mg/dl (0.2-1.3); Blood Urea Nitrogen 21 mg/dl (7-17); Creatinine Clearance Estimated 98 mL/min (50-200); Estimated Glomerular Filt Rate 102 ml/min (>60); GFR (African American) 123 ML/MIN (>60)
[2021-11-03 07:44] LABS: Albumin Level 3.3 g/dl (3.5-5.0); Albumin/Globulin Ratio 1.5 (1.1-1.8); Calcium 8.4 mg/dl (8.4-10.2); Globulin 2.2 g/dL (1.3-3.2); Glucose 103 mg/dl (74-100); Potassium 3.3 mmoL/L (3.5-5.1); Total Protein,Serum 5.5 g/dl (6.3-8.2)
[2021-11-03 07:51] LABS: Anion Gap 5.3 mEq/L (5-15); Carbon Dioxide 39 mmol/L (22.0-30.0)
[2021-11-03 08:00] VITALS: BP 96/68; PULSE 122; RESP 21; TEMP 36.8; O2SAT 92
--- NOTE | 2021-11-03 09:41 | P.PN_ITS ---
Internal Medicine - PN: Subj *Date: 11/03/21 *Time: 11:09 Interval history: No acute respiratory events overnight. Patient admits continued improvement in her symptoms. Exam - Constitutional Constitutional:: Present: no acute distress, comfortable - HENMT Exam HENMT: Present: normocephalic - Eye Exam Eyes:: Present: normal appearance both eyes and related structures - Respiratory Exam Respiratory:: Present: able to speak in complete sentences, no respiratory distress, wheezing. Absent: crackles - Cardiovascular Exam Cardiac:: Present: S1, S2 - GI Exam GI:: Present: soft, no hepatosplenomegaly - Skin Exam Skin: Present: warm, no rash - Neurological Exam Neurological: Present: alert, awake, normal cognition - Extremities Exam Extremities: Present: no cyanosis, no clubbing Assessment and Plan (1) Acute and chronic respiratory failure Status: Acute Qualifiers: Respiratory failure complication: hypoxia and hypercapnia Qualified Code(s): J96.21 - Acute and chronic respiratory failure with hypoxia; J96.22 - Acute and chronic respiratory failure with hypercapnia Category: Medical Code(s): J96.20 - Acute and chronic respiratory failure, un specified whether with hypoxia or hypercapnia (2) COVID-19 virus infection Status: Acute Category: Medical Code(s): U07.1 - COVID-19 (3) Constipation Status: Chronic Qualifiers: Constipation type: slow transit constipation Qualified Code(s): K59.01 - Slow transit constipation Category: Medical Code(s): K59.00 - Constipation, unspecified (4) Hypertension Status: Chronic Category: Medical Code(s): I10 - Essential (primary) hypertension (5) COPD (chronic obstructive pulmonary disease) Status: Chronic Qualifiers: COPD type: unspecified COPD Qualified Code(s): J44.9 - Chronic obstructive pulmonary disease, unspecified Category: Medical Code(s): J44.9 - Chronic obstructive pulmonary disease, u nspecified - Assessment and plan all Dx Assessment and Plan for all problems:: #Acute on chronic hypoxic respiratory failure: #COVID-19 pneumonia: Ms. Aviles is a 61-year-old female greater than 65-[id number]-klfw smoking/smoked around 2018, carries a diagnosis COPD on long-term oxygen therapy 2 L presented to the hospital worsening respiratory distress and found to be having COVID-19 pneumonia and pulmonary was called for further management Patient was initiated on remdesivir and methylprednisolone 80 every 8 on admission along with nebulization therapies and levofloxacin. Patient admits improvement in her respiratory distress though not at baseline. Patient also complains of lower extremity pain. Checks x-ray no acute pulmonary infiltrates. No evidence of leukocytosis. Interval update: Significant improvement in patient's respiratory status since yesterday. Oxygenation improved, saturating 94% on 2 L nasal cannula which is her home long-term oxygen therapy. No evidence of DVT on her lower extremity Doppler. Plan: -LE venous doppler -COntinue Trelegy inhaler upon discharge along with Combivent/DuoNebs every 6 hours on as-needed basis. -Continue remdesivir for 5 days or until discharge. -Prednisone to 40 mg daily x 5 days -Continue levofloxacin oral daily x5 days #Thank for involving pulmonary in this patient care. We will follow the patient in pulmonary clinic in 4 to 6 weeks with a full PFT and a 6-minute walk testing.
--- NOTE | 2021-11-03 09:56 | PC.NURSE ---
Patient to be discharged today but stated her sister could not pick her up until around 5-6 this evening when she got off work.
--- NOTE | 2021-11-03 10:32 | HMH.DCSUM ---
General - General Admission date:: 10/28/21 Discharge date: 11/03/21 HPI HPI: this patient presented to the ed - pt presents to ED c/o SOA x 3 days. pt states she has a hx of COPD and wears 2LNC at home. pt reports nonproductive cough, denies fever Patient arrives by ambulance. 2 to 3-day history of chest congestion and shortness of breath. She has COPD and is oxygen dependent at 2 L. For the past couple of days she says that she is so short of breath she cannot even walk across the room. Says that she is coughing but unable to bring anything up, feels like there is stuff in there that will not come up. Temperature not taken at home. She has had some rhinorrhea. Denies chest pain. No known exposure to COVID. She has not been vaccinated against COVID. She is a former smoker. She uses nebulizer treatments every 4 hours. pt with recent admit 10/12/21- 10/16/21 for acute excerbation of copd - pt with acute exacerbation of copd and was admitted for eval and treatment and noted to have covid-19 Hospital Course Hospital Course: Patient arrives by ambulance. 2 to 3-day history of chest congestion and shortness of breath. She has COPD and is oxygen dependent at 2 L. For the past couple of days she says that she is so short of breath she cannot even walk across the room. Says that she is coughing but unable to bring anything up, feels like there is stuff in there that will not come up. Temperature not taken at home. She has had some rhinorrhea. Denies chest pain. No known exposure to COVID. She has not been vaccinated against COVID. She is a former smoker. She uses nebulizer treatments every 4 hours. pt with recent admit 10/12/21- 10/16/21 for acute excerbation of copd - pt with acute exacerbation of copd and was admitted for eval and treatment and noted to have covid-19 Pulmonology has seen and recommends: Ms. Aviles is a 61-year-old female greater than 12-wmwk-icnn smoking/smoked around 2018, carries a diagnosis COPD on long-term oxygen therapy 2 L presented to the hospital worsening respiratory distress and found to be having COVID-19 pneumonia and pulmonary was called for further management Patient was initiated on remdesivir and methylprednisolone 80 every 8 on admission along with nebulization therapies and levofloxacin. Patient admits improvement in her respiratory distress though not at baseline. Patient also complains of lower extremity pain. Checks x-ray no acute pulmonary infiltrates. No evidence of leukocytosis. Interval update: Significant improvement in patient's respiratory status since yesterday. Oxygenation improved, saturating 94% on 2 L nasal cannula which is her home long-term oxygen therapy. No evidence of DVT on her lower extremity Doppler. Plan: -LE venous doppler -COntinue Trelegy inhaler upon discharge along with Combivent/DuoNebs every 6 hours on as-needed basis. -Continue remdesivir for 5 days or until discharge. -Prednisone to 40 mg daily x 5 days -Continue levofloxacin oral daily x5 days #Thank for involving pulmonary in this patient care. We will follow the patient in pulmonary clinic in 4 to 6 weeks with a full PFT and a 6-minute walk testing. ECHO reveals: Conclusion 1. Normal left ventricular size, preserved left ventricular systolic function, estimated ejection fraction 55% with no regional wall motion abnormality, Doppler evidence of impaired LV relaxation. 2. Trace mitral and tricuspid regurgitation. 3. No significant pericardial effusion. 4. Inferior vena cava is poorly visualized. Bilateral lower extremity venous Dopplers were negative for DVT Acute and chronic respiratory failure COVID-19 virus infection COPD (chronic obstructive pulmonary disease) She has received levofloxacin, remdesivir, .Methylprednisone, Trelegy inhaler, Combivent and duo nebs. She hs also received enoxaparin and will be discharged on levofloxacin and prednisone Constipation Discus
[2021-11-03 11:40] VITALS: BP 90/55; PULSE 82; RESP 20; TEMP 36.8; O2SAT 96
--- NOTE | 2021-11-04 16:38 | CARE MANAGER ---
Called and spoke with patient regarding post discharge status. Patient states that she continues to have lung pain and is unable to take the norco that was prescribed. She has called Dr. Marsh's office and left a message to see if she can have something different for pain. She states that she took ibuprofen today and plans to take that until she hears from MD. She has an appt with SERA Guzman on 11/09. I suggested that she try to get in earlier since she continues to feel bad.
== END 2021-11-03 15:00 | disposition home health service (06) | DRG 177 ==
LOC: ER 18:28 → 2ND 18:47
PROVIDERS: Nurse Practitioner Family; Admitting Provider Emergency Medicine; Emergency Provider Emergency Medicine; Visit Provider Emergency Medicine
DX: U07.1 COVID-19 (principal); J96.21 Acute and chronic respiratory failure with hypoxia; J44.1 Chronic obstructive pulmonary disease with (acute) exacerbation; Z99.81 Dependence on supplemental oxygen; Z87.891 Personal history of nicotine dependence; I10 Essential (primary) hypertension; K59.09 Other constipation
CPT/HCPCS: 36415; 71045; 71275; 80048; 80053; 82803; 84484; 85007; 85025; 93005; 93306; 93970; 94640; 94760; 94761; 97110; 97116; 97162; 97166; 97530; 99285; C9803; G0238; J1956; Q9967; U0003; U0005

== ENCOUNTER 2021-11-18 12:15 | Observation (INO) | payer MEDICARE, SELFPAY ==
[2021-11-18] VITALS (10 sets, daily range): BP systolic 132–170; BP diastolic 74–103; PULSE 100–133; RESP 15–26; TEMP 36.6–36.9; O2SAT 93–100; BMI 20.3; BMI 20.7
--- NOTE | 2021-11-18 12:20 | XR_ITS ---
FINAL REPORT CLINICAL HISTORY: SOA, cough COMPARISON: October 30, 2021 FINDINGS: A single portable view of the chest was obtained. The heart size and pulmonary vascularity are within normal limits. The mediastinum is within normal limits. No acute pulmonary abnormality is identified. There is small right small pleural effusion. There are several chronic right posterior rib fractures. IMPRESSION: No active cardiopulmonary disease. Reviewed, Interpreted and Dictated by Adriel Root III, MD Transcribed by China Marvin Authenticated and [facility]
--- NOTE | 2021-11-18 12:24 | ECG_ITS ---
APPROVED REPORT Exam: Resting ECG HR:125 bpm ECG Measurements Heart Rate 125 AXES FL 148 P 81 QRSd 94 QRS 96 QT 296 T 68 QTc 370 Conclusion SINUS TACHYCARDIA BORDERLINE RIGHT AXIS DEVIATION [QRS AXIS > 90] ABNORMAL RHYTHM ECG UNCONFIRMED REPORT Electronically signed by : Case Barrios MD 11/18/2021 17:22:22
[2021-11-18 12:35] LABS: Basophils # 0.4 K/mm3 (0-0.2); Basophils % 2.9 % (0.1-2.0); Eosinophils # 0.1 K/mm3 (0.0-0.4); Eosinophils % 0.8 % (0.1-12.0); Hematocrit 41.9 % (37.0-47.0); Hemoglobin 13.2 g/dL (12.2-16.2); Lymphocytes # 1.2 K/mm3 (0.7-4.5); Lymphocytes % 10.2 % (10-50); Mean Corpuscular HGB Conc 31.5 g/dL (31.8-35.4); Mean Corpuscular Hemoglobin 29.7 pg (27.0-31.2); Mean Corpuscular Volume 94.2 fl (81-99); Mean Platelet Volume 8.6 fl (7.4-10.4); Monocytes # 0.7 K/mm3 (0.1-1.0); Monocytes % 5.9 % (1.7-9.3); Neutrophils # 9.4 K/mm3 (1.8-7.8); Neutrophils % 80.1 % (37.0-80.0); Platelet Count 325 K/mm3 (142-424); Red Blood Count 4.45 M/mm3 (4.20-5.40); Red Cell Distribution Width 13.5 % (11.5-17.5); White Blood Count 11.7 K/mm3 (4.8-10.8)
--- NOTE | 2021-11-18 12:38 | HMH.EDGENADL ---
ED Disposition Clinical Impression: COPD exacerbation, Chronic respiratory failure with hypoxia Disposition: Admitted as Observation Condition on Discharge: Fair - Critical Care Critical Care Time: No Attestation: On 11/18/21, the high probability of a clinically significant, sudden or life threatening deterioration of the following system(s) required my full and direct attention, intervention and personal management. The time I documented below is in addition to time spent performing reported procedures but includes the following listed in this critical care notation. Medical Decision Making - Medical Records Medical records reviewed: Yes: I reviewed the patient's medical records. MR Comment: Reviewed discharge summaries from recent admission 10/28/2021 through 11/03/2021 and 10/12/2021 through 10/15/2021. - Patel Inquiry Pt receiving controlled substance: No Vital Signs: 11/18/21 12:16 11/18/21 13:00 Temperature 98.4 F Temperature Source Oral Pulse Rate 108 H Pulse Rate [Radial] 133 H Respiratory Rate 26 H 15 Blood Pressure 143/94 H Blood Pressure [Right Arm] 140/103 H Blood Pressure Mean 108 Blood Pressure Mean [Right Arm] 115 02 Sat by Pulse Oximetry 98 97 Oxygen Delivery Method Nasal Cannula Oxygen Flow Rate (LPM) 2 - Lab Data Lab Results 11/18/21 12:15: WBC 11.7 H, RBC 4.45, Hgb 13.2, Hct 41.9, MCV 94.2, MCH 29.7, MCHC 31.5 L, RDW 13.5, Plt Count 325, MPV 8.6, Neut % (Auto) 80.1 H, Lymph % (Auto) 10.2, [place] % (Auto) 5.9, Eos % (Auto) 0.8, Baso % (Auto) 2.9 H, Neut # (Auto) 9.4 H, Lymph # (Auto) 1.2, [place] # (Auto) 0.7, Eos # (Auto) 0.1, Baso # (Auto) 0.4 H 11/18/21 12:15: Sodium 142, Potassium 4.2, Chloride 100, Carbon Dioxide 36 H, Anion Gap 10.2, BUN 21 H, Creatinine 0.50 L, Estimated Creat Clear 111, Estimated GFR 126, Est GFR ( Amer) 152, Glucose 166 H, Calcium 9.4, Troponin I < 0.01 11/18/21 12:15: Lactate 0.9 11/18/21 12:15: NT-Pro-B Natriuret Pep 174 H Result diagrams: 11/18/21 12:15 11/18/21 12:15 Orders (Tests/Meds): ED MEDICATIONS Generic Name Dose Route Start Last Admin Trade Name Freq PRN Reason Stop Dose Admin Ceftriaxone Sodium 1 gm/ 50 mls @ 100 mls/hr 11/18/21 13:30 11/18/21 13:39 Sodium Chloride IV 12/02/21 13:29 100 mls/hr Q24H KENNY Administration Azithromycin 500 mg/ Sodium 250 mls @ 250 mls/hr 11/18/21 13:30 Chloride IV 12/02/21 13:29 Q24H KENNY Sodium Chloride 10 ml 11/18/21 12:21 Sodium Chloride 0.9% 10ml Flush Syringe IV 12/18/21 12:20 NEEDED PRN Maintain IV Site Discontinued Medications Generic Name Dose Route Start Last Admin Trade Name Freq PRN Reason Stop Dose Admin Levalbuterol HCl 1.25 mg 11/18/21 12:29 11/18/21 12:30 Levalbuterol 1.25mg/3ml Neb IH 11/18/21 12:30 1.25 mg ONCE ONE Administration Methylprednisolone Sodium Succinate 125 mg 11/18/21 12:21 11/18/21 12:30 Methylprednisolone Sod Succ 125mg Vial IV 11/18/21 12:22 125 mg ONCE ONE Administration ORDERS Category Date Time Status Diarrhea 6-11 Panel, Cdiff PCR Stat Lab 11/18/21 13:04 Ordered Rapid PCR Covid and Flu A/B Stat Lab 11/18/21 13:04 Ordered Troponin I Q3H Lab 11/18/21 15:30 Ordered Troponin I Q3H Lab 11/18/21 18:30 Ordered Blood Culture Stat Micro 11/18/21 12:15 Received ABG [Arterial Blood Gas] Stat RT 11/18/21 13:01 Ordered - Radiology Data #1 Image(s): Chest (Preliminary interpretation by me: COPD) Image Reviewed: Yes I reviewed the patient's radiology image, Yes I have reviewed radiologist's interpretation Procedure(s): XR chest portable Accession Number(s): [id number] cc: Raad Marsh MD; Adriel Root MD~ FINAL REPORT CLINICAL HISTORY: SOA, cough COMPARISON: October 30, 2021 FINDINGS: A single portable view of the chest was obtained. The heart size and pulmonary vascularity are within normal limits. The mediastinum is within normal limits. No acute pulmo
[2021-11-18 12:46] LABS: Anion Gap 10.2 mEq/L (5-15); Blood Urea Nitrogen 21 mg/dl (7-17); Calcium 9.4 mg/dl (8.4-10.2); Carbon Dioxide 36 mmol/L (22.0-30.0); Chloride 100 mmol/L (98-107); Creatinine Clearance Estimated 111 mL/min (50-200); Estimated Glomerular Filt Rate 126 ml/min (>60); GFR (African American) 152 ML/MIN (>60); Glucose 166 mg/dl (74-100); Lactic Acid 0.9 mmol/L (0.7-2.1); Potassium 4.2 mmoL/L (3.5-5.1); Sodium 142 mmol/L (136-145)
[2021-11-18 12:56] LABS: NT Pro Brain Natriuretic Pep. 174 pg/mL (0-125)
[2021-11-18 12:59] LABS: Troponin I < 0.01 ng/ml (0.00-0.034)
--- NOTE | 2021-11-18 13:00 | PC.NURSE ---
pt resting warm blankets given
--- NOTE | 2021-11-18 13:13 | PC.NURSE ---
DR LEE PATEL
--- NOTE | 2021-11-18 13:28 | PC.NURSE ---
has been called; he is in a room with a patient he will call back.
--- NOTE | 2021-11-18 13:30 | PC.NURSE ---
Care management has been called for admission.
[2021-11-18 13:55] LABS: Coronavirus 19, PCR Not Detected (NotDetected); Influenza A, PCR Not Detected (NotDetected); Influenza B, PCR Not Detected (NotDetected)
[2021-11-18 14:07] LABS: ABG Base Excess 5.8 mmol/L (-2.4-2.3); ABG HCO3 30.4 mmhg (22.0-26.0); ABG Oxygen Saturation 89 % (90-100); ABG PCO2 49.1 mmhg (35.0-45.0); ABG PH 7.41 mmol/L (7.35-7.45); ABG PO2 56.3 mmhg (80-100); ABG TCO2 31.9 mmhg (23-27)
--- NOTE | 2021-11-18 14:34 | PC.NURSE ---
patient is waiting for daughter to get things set up with Hospice at home; once daughter returns patient will be leaving
[2021-11-18 14:38] LABS: Allen's Test Acceptable; Oxygen 2L %; Source Left Radial
--- NOTE | 2021-11-18 14:40 | PC.NURSE ---
warm blanket given
--- NOTE | 2021-11-18 14:49 | HMH.PHAINT ---
MEDICATION RECONCILIATION COMPLETE USING LIST FROM [facility]OST RECENT [facility] DISCHARGE (EARLY 10/2021) AND EXTERNAL PHARMACY FILL HISTORY.
--- NOTE | 2021-11-18 14:50 | HMH.PHAVTE ---
[facility] Pharmacy VTE Monitoring - Patient Demographics Admission date: 11/18/21 Report Date: 11/18/21 Time: 14:50 Allergies/Adverse Reactions: Patient Allergies acetaminophen [From Panlor (hydrocodone-acetamin)] Allergy (Severe, Verified 11/04/21 15:56) cant breath hydrocodone [From Panlor (hydrocodone-acetamin)] Allergy (Severe, Verified 11/04/21 15:56) cant breath Penicillins Allergy (Verified 10/12/21 22:13) Height: 1.7 m Weight: 58.967 kg Patient Problems: Current Active Problems COPD exacerbation (Acute) Chronic respiratory failure with hypoxia (Acute) - VTE Risk Labs: VTE Related Lab Results Hgb 13.2 g/dL (12.2-16.2) 11/18/21 12:15 Hct 41.9 % (37.0-47.0) 11/18/21 12:15 Plt Count 325 K/mm3 (142-424) 11/18/21 12:15 BUN 21 mg/dl (7-17) H 11/18/21 12:15 Creatinine 0.50 mg/dl (0.52-1.04) L 11/18/21 12:15 Estimated Creat Clear 111 mL/min (50-200) 11/18/21 12:15 Was VTE Risk Assessment Performed: No Clinical Trial Participant: No - Prophylaxis VTE Prophylaxis Ordered?: Yes Types of VTE Prophylaxis: TEDS Knee High Location of Applied Device: Bilateral Lower Extremeties
[2021-11-18 15:53] LABS: Troponin I < 0.01 ng/ml (0.00-0.034)
--- NOTE | 2021-11-18 16:05 | PC.NURSE ---
pt transferred to floor per stretcher
[2021-11-19] VITALS (11 sets, daily range): BP systolic 92–152; BP diastolic 57–86; PULSE 77–119; RESP 14–20; TEMP 36.6–36.9; O2SAT 91–97; BMI 20.7
--- NOTE | 2021-11-19 03:45 | PC.NURSE ---
Pt a&ox4, used bedside commode with assistance, purewick in place. Pt remains on 2L NC with O2 sat 94-98% this shift so far. Pt HR 90-126. HR elevated at the beginning of shift, decreased through night. Pt has no complaints of pain thus far. Pt complained of nausea 1 time, treated per JUL.
--- NOTE | 2021-11-19 15:06 | HMH.HP ---
*Admission Date: 11/18/21 *Chief complaint: copd exacerbation *History of present illness: Patient has severe COPD, oxygen dependent at 2 L nasal cannula. Recent admission to this hospital for respiratory failure and COVID. Now presents complaining of 2 days of increased shortness of breath and weakness. Denies cough or sputum production or hemoptysis. Denies chest pain. Thinks she has had a low-grade fever, but temperature not taken. She uses a nebulizer at home, she is not certain how often, but says that her last treatment was an hour before arrival. She was also discharged from her recent admission on a Trelegy inhaler, antibiotics, and steroids. She finished all of those medications a couple of days ago. She has also had some vomiting and diarrhea. She is a former smoker. ER workup included abg and cxr. pC02=49 pO2=56 FINDINGS: A single portable view of the chest was obtained. The heart size and pulmonary vascularity are within normal limits. The mediastinum is within normal limits. No acute pulmonary abnormality is identified. There is small right small pleural effusion. There are several chronic right posterior rib fractures. IMPRESSION: No active cardiopulmonary disease. Has been planning on coming to Dr Marsh's practice because of transportation issues. [facility] History Medical History: Reports:: Chronic Obstructive Pulmonary Disease (COPD), Hypertension Denies:: Cancer, Diabetes Mellitus Type 1, Diabetes Mellitus Type 2, MRSA, Seizures *Have you ever received a pneumonia vaccine?: No *Have you received a flu vaccine this season?: No Other Medical History: Reports: Other (chronic neck and back pain due to DJD/DDD) Laterality Cases: Bilateral: Tonsillectomy Other Surgeries: Yes: Appendectomy, Cholecystectomy, Colonoscopy, Hysterectomy-Total, Tubal Ligation Amputation: No Fractures: Yes (Bilat pinky toes, back T11 T12) - *Social History Last grade of school completed: High school graduate Smoking Status: Former smoker Tobacco Type: cigarettes # Packs/Day (cigarettes): 3 #Yrs smoked (if former smoker): 44 Alcohol Intake: never Substance Use Type: denies use *Occupational Status:: retired Housing: house Household Members: family *Travel in the last 8 weeks: None Family Hx:: No significant family history Review of Systems - Constitutional Reports chills, Reports lack of energy, Reports weakness - Eyes Denies change in vision - ENT Denies abnormal hearing - *Cardiovascular Reports shortness of breath, Denies chest pain - *Respiratory Reports change in phlegm color, Reports chest congestion, Reports shortness of breath, Reports excessive phlegm production - *Gastrointestinal Reports abdominal pain, Reports bloating, Reports vomiting, Denies coffee ground vomit, Denies vomiting blood, Denies bright, red blood in stools - *Genitourinary Denies difficulty urinating - *Musculoskeletal Reports muscle weakness - Integumentary/Breasts Denies yellowing of the skin - *Neurologic Denies behavioral changes - Psychiatric Denies behavioral changes - Endocrine Reports cold intolerance - Hematologic/Lymphatic Denies easy bleeding, Denies easy bruising - Allergic/Immunologic Denies hives Meds Home Medications Medication Instructions Recorded Confirmed Type Ipratropium/Albuterol Sulfate 1 puff PO QIDP PRN 02/18/19 11/18/21 History [Combivent Respimat Inh] Tizanidine HCl 4 - 8 mg PO QID 02/18/19 11/18/21 History Montelukast Sodium 10 mg PO HS 10/02/20 11/18/21 History Fexofenadine HCl 180 mg PO DAILY 10/12/21 11/18/21 History lisinopriL [Lisinopril] 10 mg PO DAILY 10/12/21 11/18/21 History Ergocalciferol (Vitamin D2) 50,000 units PO WEEKLY 10/13/21 11/18/21 History [Drisdol 50,000 units (1.25mg) capsule] Gabapentin [Neurontin 600mg 600 mg PO QID 10/13/21 11/18/21 History tablet] Sertraline HCl [Zoloft 100mg 100 mg PO DAILY 10/13/21 11/18/21 History tablet]
[2021-11-20] VITALS (11 sets, daily range): BP systolic 93–118; BP diastolic 51–76; PULSE 70–97; RESP 14–22; TEMP 36.4–36.9; O2SAT 91–98; BMI 22.4
--- NOTE | 2021-11-20 04:10 | PC.NURSE ---
No acute changes. Pt has been pleasant and cooperative this shift. Pt tolerating 2 L nc well with sats >90%. Pt able to ambulate to BSC independently. No complaints voiced to staff. Call light within reach.
[2021-11-20 07:10] LABS: Basophils % 0.1 % (0.1-2.0); Eosinophils % 0.3 % (0.1-12.0); Hematocrit 34.4 % (37.0-47.0); Lymphocytes # 0.7 K/mm3 (0.7-4.5); Lymphocytes % 7.4 % (10-50); Mean Corpuscular HGB Conc 31.9 g/dL (31.8-35.4); Mean Corpuscular Hemoglobin 30.2 pg (27.0-31.2); Mean Corpuscular Volume 94.7 fl (81-99); Mean Platelet Volume 8.5 fl (7.4-10.4); Monocytes # 0.3 K/mm3 (0.1-1.0); Monocytes % 3.4 % (1.7-9.3); Neutrophils # 8.1 K/mm3 (1.8-7.8); Neutrophils % 88.7 % (37.0-80.0); Platelet Count 222 K/mm3 (142-424); Red Blood Count 3.63 M/mm3 (4.20-5.40); Red Cell Distribution Width 13.6 % (11.5-17.5); White Blood Count 9.2 K/mm3 (4.8-10.8)
[2021-11-20 07:12] LABS: Chloride 98 mmol/L (98-107); Potassium 4.2 mmoL/L (3.5-5.1); Sodium 134 mmol/L (136-145)
[2021-11-20 07:14] LABS: Alanine Aminotransferase 14 U/L (12-78); Aspartate Amino Transferase 20 U/L (14-36); Blood Urea Nitrogen 16 mg/dl (7-17); Creatinine Clearance Estimated 149 mL/min (50-200); Estimated Glomerular Filt Rate 163 ml/min (>60); GFR (African American) 197 ML/MIN (>60)
[2021-11-20 07:15] LABS: Albumin Level 3.3 g/dl (3.5-5.0); Albumin/Globulin Ratio 1.3 (1.1-1.8); Alkaline Phosphatase 44 U/L (38-126); Anion Gap 3.2 mEq/L (5-15); Bilirubin,Total 0.3 mg/dl (0.2-1.3); Calcium 8.3 mg/dl (8.4-10.2); Carbon Dioxide 37 mmol/L (22.0-30.0); Globulin 2.5 g/dL (1.3-3.2); Glucose 182 mg/dl (74-100); Total Protein,Serum 5.8 g/dl (6.3-8.2)
[2021-11-20 07:16] LABS: MANUAL DIFFERENTIAL MANUAL DIFFERENTIAL (MANUAL DIFF)
--- NOTE | 2021-11-20 07:35 | PC.NURSE ---
Spoke with PT and verified she was not allergic to Tylenol.
[2021-11-20 07:41] LABS: Lymphocytes % 14 % (10-50); Monocytes % 1 % (2-9); Neutrophils % 85 % (42-76); Platelet Estimate Normal; RBC Morphology Normal; Total Cells Counted 100
--- NOTE | 2021-11-20 13:02 | HMH.ACPN2 ---
Internal Medicine - PN: Subj *Date: 11/20/21 *Time: 13:02 Interval history: complains of abdominal discomfort overnight resolution of diarrhea history of colitis cta abdom in september demonstrated sigmoid colitis with normal perfusion remains on supplemental Exam Vital signs and Labs for Last 24 Hours: Temp Pulse Resp BP Pulse Ox 97.7 F 77 16 94/51 L 95 11/20/21 08:00 11/20/21 10:55 11/20/21 08:00 11/20/21 08:00 11/20/21 10:55 Laboratory Results - last 24 hr 11/20/21 06:54: WBC 9.2, RBC 3.63 L, Hgb 11.0 L, Hct 34.4 L, MCV 94.7, MCH 30.2, MCHC 31.9, RDW 13.6, Plt Count 222 D, MPV 8.5, Neut % (Auto) 88.7 H, Lymph % (Auto) 7.4 L, [place] % (Auto) 3.4, Eos % (Auto) 0.3, Baso % (Auto) 0.1, Neut # (Auto) 8.1 H, Lymph # (Auto) 0.7, [place] # (Auto) 0.3, Eos # (Auto) 0.0, Baso # (Auto) 0.0, Total Counted 100, Neutrophils % (Manual) 85 H, Lymphocytes % (Manual) 14, Monocytes % (Manual) 1 L, Platelet Estimate Normal, RBC Morphology Normal 11/20/21 06:54: Sodium 134 L, Potassium 4.2, Chloride 98, Carbon Dioxide 37 H, Anion Gap 3.2 L, BUN 16, Creatinine 0.40 L, Estimated Creat Clear 149, Estimated GFR 163, Est GFR ( Amer) 197 D, Glucose 182 H, Calcium 8.3 L, Total Bilirubin 0.3, AST 20, ALT 14, Alkaline Phosphatase 44, Total Protein 5.8 L, Albumin 3.3 L, Globulin 2.5, Albumin/Globulin Ratio 1.3 I & O for Last 24 hours: Intake & Output 11/17/21 11/18/21 11/19/21 11/20/21 23:59 23:59 23:59 23:59 Intake Total 240 / 240 1456 / 1456 480 / 480 Output Total 200 / 650 450 / 450 Balance 240 / 40 1256 / 806 30 / 30 Weight 132 lb 5 oz 132 lb 5 oz 139 lb 5 oz Microbiology Reports for the Last 24 Hours: Microbiology 11/18/21 12:15 Blood Blood Culture - Preliminary NO GROWTH AFTER 48 HOURS 11/18/21 12:15 Blood Blood Culture - Preliminary NO GROWTH AFTER 48 HOURS - Constitutional no acute distress, chronically ill appearing, cooperative - *Routine HEENT Exam Head: Present: normocephalic Eye: Present: EOMI, PERRL ENT: Present: mucous membranes moist - *Routine Neck Exam Present: supple. Absent: lymphadenopathy - *Routine Respiratory Exam Present: decreased breath sounds, rhonchi, diminished air movement. Absent: respiratory distress, wheezes - *Routine Cardiovascular Exam Present: RRR - *Routine Abdominal Exam Present: tenderness. Absent: distended, rigid - *Routine Extremities Exam Absent: cyanosis, clubbing, edema - *Routine Skin Exam Present: warm. Absent: rash - *Routine Neurological Exam Present: alert, oriented X3 Assessment and Plan (1) COPD exacerbation Status: Acute Category: Medical Code(s): J44.1 - Chronic obstructive pulmonary disease with (acute) exacerbation (2) Chronic respiratory failure with hypoxia Status: Acute Category: Medical Code(s): J96.11 - Chronic respiratory failure with hypoxia (3) COPD (chronic obstructive pulmonary disease) Status: Chronic Qualifiers: COPD type: unspecified COPD Qualified Code(s): J44.9 - Chronic obstructive pulmonary disease, unspecified Category: Medical Code(s): J44.9 - Chronic obstructive pulmonary disease, unspecified (4) Intractable nausea and vomiting Status: Acute Category: Medical Code(s): R11.2 - Nausea with vomiting, unspecified (5) Diarrhea Status: Acute Category: Medical Code(s): R19.7 - Diarrhea, unspecified (6) Abdominal pain Status: Acute Qualifiers: Abdominal location: generalized Qualified Code(s): R10.84 - Generalized abdominal pain Category: Medical Code(s): R10.9 - Unspecified abdominal pain - Assessment and plan all Dx Assessment and Plan for all problems:: continue solumedrol and antibiotics will ct abdomen to delineate further, given history of colitis
--- NOTE | 2021-11-20 13:08 | CT_ITS ---
PROCEDURE INFORMATION: Exam: CT Abdomen And Pelvis Without Contrast Exam date and time: 11/20/2021 3:24 PM Age: 61 years old Clinical indication: Abdominal pain; Generalized; Additional info: Abdominal pain with history of colitis TECHNIQUE: Imaging protocol: Computed tomography of the abdomen and pelvis without contrast. Radiation optimization: All CT scans at this facility use at least one of these dose optimization techniques: automated exposure control; mA and/or kV adjustment per patient size (includes targeted exams where dose is matched to clinical indication); or iterative reconstruction. Other contrast: Oral, gastrograffin, 30; COMPARISON: CT ABDOMEN PELVIS W CON 10/12/2021 7:44 PM FINDINGS: Lungs: No acute findings in the visualized lower lungs. No consolidation. Liver: 7 mm hypoattenuating subdiaphragmatic liver lesion, likely tiny cyst, unchanged; this is too small to accurately characterize. Series 3, image 15. Slightly hyperdense liver parenchyma for nonenhanced study, HU density measurements approximately 65-75 (normal 40-60 HU.) This is nonspecific but raises the possibility of hemosiderosis/hemochromatosis or other deposition disease. No hepatomegaly. Gallbladder and bile ducts: Cholecystectomy clips. Biliary tree appears within normal limits post cholecystectomy. No calcified stones. Pancreas: Prominent fatty atrophic/infiltrative changes of the pancreas. No ductal dilatation. Spleen: No splenomegaly. Calcified granuloma. Adrenal glands: The adrenal glands are normal. Kidneys and ureters: The kidneys are normal. The ureters are normal. Stomach and bowel: The stomach is normal. Small intestine is unremarkable. Contrast extends through the small bowel and proximal colon. Much of the descending and sigmoid colon is empty and contracted which likely accounts for slightly thickened appearance, there is no pericolic edema or extraluminal gas bubbles. Appendix: No findings of appendicitis. Intraperitoneal space: There is no significant free intraperitoneal fluid. There is no free intraperitoneal air. Vasculature: There is no aortic aneurysm. The vasculature demonstrates scattered mild atherosclerotic calcification. No portal venous gas. Lymph nodes: No significantly enlarged lymph nodes by short axis criteria. Urinary bladder: The bladder is unremarkable for the degree of distension, and no significant wall thickening or calcified stones. There is a chronic calcification at the junction of bladder base and urachal remnant sagittal image 46 and axial image 92, unchanged. Reproductive: Unremarkable as visualized. Post hysterectomy. Bones/joints: There is a chronic left lateral acetabular deformity at the hip joint, likely old trauma or degenerative change.No acute fracture or dislocation. Spinal degenerative changes, multilevel disc narrowing, spondylosis and facet arthropathy. Soft tissues: There are no soft tissue masses or fluid collections. IMPRESSION: 1. No definite acute findings. 2. Much of the descending and sigmoid colon is empty and contracted which likely accounts for slightly thickened appearance, less likely differential would be colitis. There is no pericolic edema, no extraluminal gas bubbles. 3. No free fluid or free air. 4. Biliary tree is within normal limits post cholecystectomy. 5. Additional nonemergency and chronic findings as above.
--- NOTE | 2021-11-20 13:23 | PC.NURSE ---
Spoke with lenka BURDICK to give report
--- NOTE | 2021-11-20 13:30 | HMH.ITSTN ---
spoke to dr palencia, changed order to without and oral contrast only. I took oral contrast to the floor and advised that we can scan 2 hours after she is finished with the oral contrast. They will call when done and we will time it from there.
--- NOTE | 2021-11-20 16:00 | PC.NURSE ---
No change from previous assessment. Will continue to monitor.
[2021-11-21] VITALS (9 sets, daily range): BP systolic 102–138; BP diastolic 61–73; PULSE 68–109; RESP 18–24; TEMP 36.5–36.7; O2SAT 93–99; BMI 22.4
[2021-11-21 06:01] LABS: Basophils % 0.2 % (0.1-2.0); Hematocrit 35.9 % (37.0-47.0); Lymphocytes # 0.8 K/mm3 (0.7-4.5); Lymphocytes % 10.2 % (10-50); Mean Corpuscular HGB Conc 30.5 g/dL (31.8-35.4); Mean Corpuscular Hemoglobin 29.2 pg (27.0-31.2); Mean Corpuscular Volume 95.9 fl (81-99); Mean Platelet Volume 8.7 fl (7.4-10.4); Monocytes # 0.3 K/mm3 (0.1-1.0); Monocytes % 3.9 % (1.7-9.3); Neutrophils # 6.8 K/mm3 (1.8-7.8); Neutrophils % 85.8 % (37.0-80.0); Platelet Count 233 K/mm3 (142-424); Red Blood Count 3.75 M/mm3 (4.20-5.40); Red Cell Distribution Width 13.8 % (11.5-17.5)
[2021-11-21 06:03] LABS: MANUAL DIFFERENTIAL MANUAL DIFFERENTIAL (MANUAL DIFF)
[2021-11-21 06:11] LABS: Chloride 100 mmol/L (98-107); Potassium 4.6 mmoL/L (3.5-5.1); Sodium 136 mmol/L (136-145)
[2021-11-21 06:13] LABS: Blood Urea Nitrogen 13 mg/dl (7-17); Creatinine Clearance Estimated 149 mL/min (50-200); Estimated Glomerular Filt Rate 163 ml/min (>60); GFR (African American) 197 ML/MIN (>60)
[2021-11-21 06:14] LABS: Alanine Aminotransferase 13 U/L (12-78); Albumin Level 3.2 g/dl (3.5-5.0); Albumin/Globulin Ratio 1.3 (1.1-1.8); Alkaline Phosphatase 42 U/L (38-126); Anion Gap 3.6 mEq/L (5-15); Aspartate Amino Transferase 18 U/L (14-36); Bilirubin,Total 0.2 mg/dl (0.2-1.3); Calcium 8.3 mg/dl (8.4-10.2); Carbon Dioxide 37 mmol/L (22.0-30.0); Globulin 2.4 g/dL (1.3-3.2); Glucose 185 mg/dl (74-100); Total Protein,Serum 5.6 g/dl (6.3-8.2)
[2021-11-21 06:21] LABS: Hypochromasia 1+; Lymphocytes % 9 % (10-50); Neutrophils % 87 % (42-76); Platelet Estimate Normal; Total Cells Counted 100
--- NOTE | 2021-11-21 07:34 | PC.NURSE ---
Pt co severe abd pain . Called dr palencia and he ordered flagyl and morphine for pain control. Medication effective.
--- NOTE | 2021-11-21 09:20 | HMH.OTEV ---
OT Inpatient Evaluation Rehab OT IP Evaluation Start: 11/21/21 08:56 Freq: ONCE Status: Complete Protocol: Document 11/21/21 09:15 LIZ (Rec: 11/21/21 09:19 [facility] [id number]) Rehab OT IP Assessment Subjective History Pt oriented x 3 on arrival. Pt agreeable to engage in therapy evaluation. Pt was admitted via ED on 11/18/21 due to COPD exacerbation. Pt reports prior to being in the hosptial she lived at home with her mother. Pt claims she was independent with all ADLs. However, she is dependent upon her sister to complete all IADLs. She does use a walker during ambulation if she is going long distances. However, normally she only transfers short distances to take breaks for her breathing. She is O2 dependent. Subjective I can do whatever I need to. Objective Patient Orientation Person,Place,Birthday Upper Extremity Gross ROM WFL Bed Mobility bed mobility-scooting,bed mobility - supine/sit,bed mobility - rolling Assist Level Supervision/Stand by Transfer Training Sit/Stand Transfer Assist Level Supervision/Stand by Chair Transfer Ability Supervision/Stand by Chair Transfer Technique Sit to/from Ambulatory Chair Transfer Assistive Devices None Lower Body Dressing Ability Standby Assistance Performing Toilet Hygiene Ability Standby Assistance Overall Commode/Toilet Transfer Ability Standby Assistance Commode/Toilet Transfer Technique Sit to/from Ambulatory Rehab OT IP prob,goals,plan Problems Date of Evaluation: 11/21/21 Rehab Potential Rehab Potential Innapropriate for Skilled Therapy Discharge Plan OT Discharge Plan At this time, pt appears to be at her baseline with functional transfers and ADL ability. Pt can return home with sister once medically stable per physician. Eval Complexity Eval Charge Codes 75321 - Moderate Complexity G Codes G -code Required No PHYSICIAN CERTIF
--- NOTE | 2021-11-21 10:03 | PC.NURSE ---
rounded on patient. went over medication antibiotics and steroids. patient had no questions but stated she felt like they were helping her a lot. did express some concern about possible discharge in regards to still feeling weak. stated she finally had a bowel movement. emptied bedside commode at this time, stool was within normal limits. educated importance of daily baths and stated her last bath was last night, but she was waiting to wash hair when she went home, some pain noted, and pain meds are due shortly she stated.
--- NOTE | 2021-11-21 10:32 | HMH.PTEV ---
Physical Therapy Evaluation Rehab PT IP Evaluation Start: 11/21/21 08:56 Freq: .once Status: Active Protocol: Document 11/21/21 10:29 [email or web address] (Rec: 11/21/21 10:32 [facility] [id number]) Subjective/History History History THis is the initial IP PT evaluation for Silvia Aviles. Pt is a 61 y/o female admitted w/ c/o COPD exacerbation. Subjective Subjective No complaints from pt Rehab PT IP Eval Objective Appearance Patient Behavior Appropriate,Cooperative Patient Orientation Place,Name,Birthday,Year, Situation Difficulty following instructions none Speech Pattern Clear,Appropriate Ambulation Patient Able to Ambulate Yes Ambulation Observation IP General Gait Pattern Observation Shuffling Step Ambulation Distance (feet) 10 Ambulation Assistive Device None Ambulation Ability Supervision/Stand by Balance Ability to Arise Able, uses arms to help Sitting Balance Steady, safe Standing Balance Steady, wide stance Dynamic Sitting Balance Ability Good Dynamic Standing Balance Ability Fair Transfers Bed Transfer Ability Independent Chair Transfer Ability Independent Sit to Stand Bed Transfer Ability Independent,Supervision/Stand by Sit to Stand Chair Transfer Ability Independent,Supervision/Stand by ROM All Extremities PT ROM Status WFL MMT All Extremities PT MMT WFL Rehab PT IP prob,goals,plan Problems Date of Evaluation: 11/21/21 Rehab Potential Rehab Potential Innapropriate for Skilled Therapy Discharge Plan PT Discharge Plan Pt is at baseline function w/ modified independence - no skilled therapy needs at this time - pt safe to return home once medically stable G -code Required Yes Eval Complexity Eval Charge Codes 67203 - Low Complexity G Codes PT Current Status Mobility PT Current Status Modifier CJ-At least 20% but less than 40% impaired, limited or restricted PT Goal Status Mobility PT Goal Status Modifer CJ-At least 20% but less than 40% impaired, limited or restricted PHYSICIAN CERTIFICATION: I certify the specified therapy services for Silvia Aviles are required
--- NOTE | 2021-11-21 10:51 | PC.NURSE ---
Addendum entered by Shirin Thurman RN 11/21/21 14:17: Spoke to provider at 1219 v.o. to give next dose of Morphine, start Senokot 8.6mg PO daily PRN, administer one time dose of Doculax Suppository and to discontinue to Flagyl & Azithromycin. Original Note: Patient c/o abdominal pain after straining for BM this AM states she takes Senokot at home; states she has back spasms and takes Tizanidine QID and has not had any since her admission would like to get it ordered; current order for pain medication is Acetaminophen which she states does not help and was administered a dose of Morphine 2mg IVP at 0634 this AM and next dose not due until 1234pm. Provider nurse, Ally, notified and waiting response
--- NOTE | 2021-11-21 12:40 | HMH.ACPN2 ---
Internal Medicine - PN: Subj *Date: 11/21/21 *Time: 13:15 Interval history: breathing improved - still with sob and occ abd cramps Exam Vital signs and Labs for Last 24 Hours: Temp Pulse Resp BP Pulse Ox 97.7 F 74 18 138/73 96 11/21/21 08:00 11/21/21 11:14 11/21/21 08:00 11/21/21 08:00 11/21/21 11:14 Laboratory Results - last 24 hr 11/21/21 05:38: WBC 8.0, RBC 3.75 L, Hgb 11.0 L, Hct 35.9 L, MCV 95.9, MCH 29.2, MCHC 30.5 L, RDW 13.8, Plt Count 233, MPV 8.7, Neut % (Auto) 85.8 H, Lymph % (Auto) 10.2, [place] % (Auto) 3.9, Eos % (Auto) 0.0 L, Baso % (Auto) 0.2, Neut # (Auto) 6.8, Lymph # (Auto) 0.8, [place] # (Auto) 0.3, Eos # (Auto) 0.0, Baso # (Auto) 0.0, Total Counted 100, Neutrophils % (Manual) 87 H, Band Neutrophils % 4.0, Lymphocytes % (Manual) 9 L, Platelet Estimate Normal, Hypochromasia 1+ 11/21/21 05:38: Sodium 136, Potassium 4.6, Chloride 100, Carbon Dioxide 37 H, Anion Gap 3.6 L, BUN 13, Creatinine 0.40 L, Estimated Creat Clear 149, Estimated GFR 163, Est GFR ( Amer) 197, Glucose 185 H, Calcium 8.3 L, Total Bilirubin 0.2, AST 18, ALT 13, Alkaline Phosphatase 42, Total Protein 5.6 L, Albumin 3.2 L, Globulin 2.4, Albumin/Globulin Ratio 1.3 I & O for Last 24 hours: Intake & Output 11/19/21 11/20/21 11/21/21 11/22/21 11:59 11:59 11:59 11:59 Intake Total 1216 / 1216 960 / 960 720 / 720 Output Total 200 / 200 450 / 450 Balance 1016 / 1016 510 / 510 720 / 720 Weight 132 lb 5 oz 139 lb 5 oz Microbiology Reports for the Last 24 Hours: Microbiology 11/18/21 12:15 Blood Blood Culture - Preliminary NO GROWTH AFTER 48 HOURS 11/18/21 12:15 Blood Blood Culture - Preliminary NO GROWTH AFTER 48 HOURS - Constitutional no acute distress - *Routine HEENT Exam Head: Present: normocephalic Eye: Present: EOMI, PERRL ENT: Present: mucous membranes moist - *Routine Neck Exam Absent: JVD - *Routine Respiratory Exam Present: rhonchi - *Routine Cardiovascular Exam Present: RRR, murmur. Absent: rubs - *Routine Abdominal Exam Present: soft - *Routine Extremities Exam Absent: calf tenderness - *Routine Skin Exam Present: intact - *Routine Neurological Exam Present: alert, CN II-XII intact, normal reflexes - Routine Psychiatric Exam Present: cooperative Assessment and Plan (1) COPD exacerbation Status: Acute Category: Medical Code(s): J44.1 - Chronic obstructive pulmonary disease with (acute) exacerbation (2) Chronic respiratory failure with hypoxia Status: Acute Category: Medical Code(s): J96.11 - Chronic respiratory failure with hypoxia (3) COPD (chronic obstructive pulmonary disease) Status: Chronic Qualifiers: COPD type: unspecified COPD Qualified Code(s): J44.9 - Chronic obstructive pulmonary disease, unspecified Category: Medical Code(s): J44.9 - Chronic obstructive pulmonary disease, unspecified (4) Intractable nausea and vomiting Status: Acute Category: Medical Code(s): R11.2 - Nausea with vomiting, unspecified (5) Diarrhea Status: Acute Category: Medical Code(s): R19.7 - Diarrhea, unspecified (6) Abdominal pain Status: Acute Qualifiers: Abdominal location: generalized Qualified Code(s): R10.84 - Generalized abdominal pain Category: Medical Code(s): R10.9 - Unspecified abdominal pain - Assessment and plan all Dx Assessment and Plan for all problems:: some improvement will start consider d/c
--- NOTE | 2021-11-21 12:57 | SW/DCPLANNER ---
I spoke with this patient this afternoon regarding plans once medically stable for discharge. Patient stated that she resides at home with her sister, wears home O2 and plans on returning home once medically stable for discharge. Patient stated that [facility] home health was set up at discharge previous admission but once she returned home she did not feel that she needed these services. Patient is agreeable to home health services at this time: patient information/order will be faxed to [facility]. The plan for this patient is to discharge home later today. Patient stated that her sister will be able to transport her home and will bring her portable O2 tank.
--- NOTE | 2021-11-21 14:08 | HMH.DCSUM ---
General - General Admission date:: 11/18/21 Discharge date: 11/21/21 HPI HPI: Patient has severe COPD, oxygen dependent at 2 L nasal cannula. Recent admission to this hospital for respiratory failure and COVID. Now presents complaining of 2 days of increased shortness of breath and weakness. Denies cough or sputum production or hemoptysis. Denies chest pain. Thinks she has had a low-grade fever, but temperature not taken. She uses a nebulizer at home, she is not certain how often, but says that her last treatment was an hour before arrival. She was also discharged from her recent admission on a Trelegy inhaler, antibiotics, and steroids. She finished all of those medications a couple of days ago. She has also had some vomiting and diarrhea. She is a former smoker. ER workup included abg and cxr. pC02=49 pO2=56 FINDINGS: A single portable view of the chest was obtained. The heart size and pulmonary vascularity are within normal limits. The mediastinum is within normal limits. No acute pulmonary abnormality is identified. There is small right small pleural effusion. There are several chronic right posterior rib fractures. IMPRESSION: No active cardiopulmonary disease. Has been planning on coming to Dr Marsh's practice because of transportation issues. Hospital Course Hospital Course: pt has improved with iv abx and steroids with resp treatment - pt is tolerating diet and activity - labs and xrays are stable - pt has element of abd pain with crampying but no bloody stools or diarrhea - will continue meds at home and follow as op- on admit not able to tolerate activity or diet but has improved over the last few days Objective Vital signs: Temp Pulse Resp BP Pulse Ox 98.0 F 82 24 119/66 97 11/21/21 12:00 11/21/21 12:00 11/21/21 12:00 11/21/21 12:11/21/21 12:00 - *Routine HEENT Exam Head: Present: normocephalic Eye: Present: EOMI, PERRL ENT: Present: mucous membranes moist - *Routine Neck Exam Present: supple - *Routine Respiratory Exam Present: CTA bilaterally - *Routine Cardiovascular Exam Present: RRR, murmur, S4 - *Routine Abdominal Exam Present: soft - *Routine Extremities Exam Absent: calf tenderness - *Routine Skin Exam Present: intact - *Routine Neurological Exam Present: alert, CN II-XII intact - Routine Psychiatric Exam Present: normal affect Results Labs on day of discharge: Labs from last 24 hours 11/21/21 11/21/21 05:38 05:38 WBC 8.0 RBC 3.75 L Hgb 11.0 L Hct 35.9 L MCV 95.9 MCH 29.2 MCHC 30.5 L RDW 13.8 Plt Count 233 MPV 8.7 Neut % (Auto) 85.8 H Lymph % (Auto) 10.2 Coffey % (Auto) 3.9 Eos % (Auto) 0.0 L Baso % (Auto) 0.2 Neut # (Auto) 6.8 Lymph # (Auto) 0.8 [place]offey # (Auto) 0.3 Eos # (Auto) 0.0 Baso # (Auto) 0.0 Total Counted 100 Neutrophils % (Manual) 87 H Band Neutrophils % 4.0 Lymphocytes % (Manual) 9 L Platelet Estimate Normal Hypochromasia 1+ Sodium 136 Potassium 4.6 Chloride 100 Carbon Dioxide 37 H Anion Gap 3.6 L BUN 13 Creatinine 0.40 L Estimated Creat Clear 149 Estimated GFR 163 Est GFR ( Amer) 197 Glucose 185 H Calcium 8.3 L Total Bilirubin 0.2 AST 18 ALT 13 Alkaline Phosphatase 42 Total Protein 5.6 L Albumin 3.2 L Globulin 2.4 Albumin/Globulin Ratio 1.3 Preliminary micro results at discharge 11/18/21 12:15 Blood Culture - Preliminary Blood NO GROWTH AFTER 48 HOURS 11/18/21 12:15 Blood Culture - Preliminary Blood NO GROWTH AFTER 48 HOURS DS: Diagnosis - Discharge Diagnosis (1) COPD exacerbation Status: Acute (2) Chronic respiratory failure with hypoxia Status: Acute (3) COPD (chronic obstructive pulmonary disease) Status: Chronic (4) Intractable nausea and vomiting Status: Acute (5) Diarrhea Status: Acute (6) Abdominal pain Status: A
--- NOTE | 2021-11-21 15:32 | HMH.PHAINT ---
DISCHARGE MEDICATION COUNSELING PROVIDED. DISCUSSED THE SHORT COURSE LEVAQUIN (7 DAYS) AND PREDNISONE (5 DAYS). DISCUSSED THE FOLLOWING: -LEVAQUIN (DAILY, TAKE WITH FOOD, MAY CAUSE UPSET STOMACH, TENDON RUPTURE RISK, DIARRHEA, ZOFRAN INTERACTION QT PROLONGATION) -PREDNISONE (BID, TAKE WITH FOOD, MAY CAUSE INSOMNIA IF TAKEN TOO LATE IN DAY, UPSET STOMACH POSSIBLE) PATIENT ASKED HOW MUCH THE MEDICATIONS WOULD COST, I ADVISED HER I WAS UNSURE I WORK IN THE INPATIENT PHARMACY BUT THAT THEY WERE SENT DOWNSTAIRS TO CLINIC PHARMACY AND THEY WOULD KNOW. PATIENT ENDORSED NO FURTHER QUESTIONS.
--- NOTE | 2021-11-21 15:56 | PC.NURSE ---
Patient is waiting for her ride to pick her up at 630pm
--- NOTE | 2021-11-22 15:01 | CARE MANAGER ---
Spoke with patient regarding post-discharge phone interview and she states that she has no questions and issues at this time.
== END 2021-11-21 14:53 | disposition home health service (06) ==
LOC: ER 13:28 → 2ND 13:43 → OB 11-20 13:30 → 2ND 11-20 14:09
PROVIDERS: Admitting Provider Family Medicine; Emergency Provider Emergency Medicine; PCP Emergency Medicine; Visit Provider Family Medicine
DX: J44.1 Chronic obstructive pulmonary disease with (acute) exacerbation (principal); Z99.81 Dependence on supplemental oxygen; I10 Essential (primary) hypertension; Z87.891 Personal history of nicotine dependence; J96.11 Chronic respiratory failure with hypoxia; R19.7 Diarrhea, unspecified; Z79.899 Other long term (current) drug therapy; Z88.5 Allergy status to narcotic agent; Z86.16 Personal history of COVID-19; R06.9 Unspecified abnormalities of breathing; Z20.822 Contact with and (suspected) exposure to COVID-19
CPT/HCPCS: G0378; 36415; 71045; 74176; 80048; 80053; 82803; 83605; 83880; 84484; 85007; 85025; 87040; 93005; 94640; 94761; 97161; 97166; 99285; C9803; J0456; J0696; J2405; U0003; U0005

== ENCOUNTER 2021-12-03 15:59 | Observation (INO) | payer MEDICARE, SELFPAY ==
[2021-12-03] VITALS (9 sets, daily range): BP systolic 101–131; BP diastolic 68–99; PULSE 98–125; RESP 12–26; TEMP 36.3–36.6; O2SAT 92–99; BMI 21.9
--- NOTE | 2021-12-03 15:53 | ECG_ITS ---
APPROVED REPORT Exam: Resting ECG HR:120 bpm ECG Measurements Heart Rate 120 AXES IA 143 P 86 QRSd 88 QRS 90 QT 290 T 80 QTc 361 Conclusion SINUS TACHYCARDIA left atrial abnormality EARLY REPOLARIZATION [ST ELEVATION WITH NORMALLY INFLECTED T-WAVE] ABNORMAL RHYTHM ECG UNCONFIRMED REPORT Electronically signed by : Case Barrios MD 12/05/2021 14:05:45
--- NOTE | 2021-12-03 16:03 | XR_ITS ---
PROCEDURE INFORMATION: Exam: XR Chest Exam date and time: 12/03/2021 4:06 PM Age: 61 years old Clinical indication: Angina and shortness of breath; Additional info: Cp @ sternum, tightness, SOA x days TECHNIQUE: Imaging protocol: Radiologic exam of the chest. Views: 1 view. COMPARISON: CR XR CHEST PORTABLE 11/18/2021 12:34 PM FINDINGS: Lungs: COPD and interstitial prominence. Pleural spaces: No pleural effusion. Heart/Mediastinum: No cardiomegaly. Bones/joints: Old right rib fractures. Osteopenia and degenerative change. IMPRESSION: COPD and interstitial prominence.
--- NOTE | 2021-12-03 16:06 | CT_ITS ---
PROCEDURE INFORMATION: Exam: CTA Chest With Contrast CTA Abdomen With Contrast Exam date and time: 12/03/2021 4:58 PM Age: 61 years old Clinical indication: Angina and shortness of breath; Additional info: SOB, tachycardia, high suspicion for pe TECHNIQUE: Imaging protocol: Computed tomographic angiography of the chest with contrast. Computed tomographic angiography of the abdomen with contrast. 3D rendering (Not supervised by radiologist): MIP and/or 3D reconstructed images were created by the technologist. Radiation optimization: All CT scans at this facility use at least one of these dose optimization techniques: automated exposure control; mA and/or kV adjustment per patient size (includes targeted exams where dose is matched to clinical indication); or iterative reconstruction. Contrast material: ISOVUE 370; Contrast volume: 100 ml; Contrast route: INTRAVENOUS (IV); COMPARISON: CT ANGIO CHEST PE PROTOCOL 10/28/2021 10:17 PM FINDINGS: VASCULATURE: Pulmonary arteries: No acute pulmonary emboli. No large, central, or segmental emboli. Aorta: No thoracic or abdominal aortic aneurysm. Some streak artifacts. Calcified atherosclerotic plaques. No findings of aortic dissection. Great vessels off the arch are unremarkable as visualized. Celiac trunk and mesenteric arteries: No occlusion or significant stenosis. Renal arteries: No occlusion or significant stenosis. 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 Veins: No portal venous gas. CHEST: Lungs: Chronic pulmonary hyperinflation, cystic emphysematous changes in the lungs. Areas of minimal chronic interstitial scarring . No consolidation. No mass. No rounded ground-glass opacities. Pleural spaces: Unremarkable. No pneumothorax. No pleural effusion. Heart: No cardiomegaly. Small heart size, which may be constitutional variant or due to COPD. Trace pericardial effusion. RV/LV ratio low normal, approximate 0.6. There is no reflux of contrast into the IVC or hepatic veins to suggest acute right heart strain. No definite coronary artery calcification is visualized. ABDOMEN AND PELVIS: Liver: No hepatomegaly. A couple of hypoattenuating liver lesions, one measuring 8 mm , in the subdiaphragmatic liver near the IVC series 5, image 108, another at the inferior right lobe of approximately 7 mm series 5, image 153, too small to accurately characterize, likely cysts. No suspicious appearing mass. Gallbladder and bile ducts: Cholecystectomy clips. Biliary tree is within normal limits. Pancreas: Fatty atrophic changes of the pancreas. No ductal dilatation. No mass. Spleen: No splenomegaly. Calcified splenic granuloma. Adrenal glands: The adrenal glands are normal. Kidneys and ureters: The kidneys are normal. Proximal ureters are unremarkable. Stomach and bowel: The stomach is normal. There is no evidence of intestinal perforation or obstruction, as visualized. Appendix: Not visualized in the abdomen. Lower pelvis not included on the scan. Intraperitoneal space: Unremarkable. No free air. No significant fluid collection. Lymph nodes: No significantly enlarged lymph nodes by short axis criteria. Bones/joints: There are spinal degenerative changes, with multilevel disc narrrowing and spondylosis. Degenerative disc narrowing and spondylosis greatest in the thoracic spine. Chronic appearing anterior wedge compression deformities greatest T8 and T11 with thoracic kyphosis. Soft tissues: Minimal nonspecific left breast calcification, not accurately characterized on CT. A small fatty ventral abdominal wall hernia in the epigastrium series
--- NOTE | 2021-12-03 16:07 | HMH.EDGENADL ---
ED Disposition Clinical Impression: Acute exacerbation of chronic obstructive airways disease Disposition: Admitted As Inpatient Condition on Discharge: Fair Time of Disposition: 18:26 - Critical Care Critical Care Time: No Attestation: On , the high probability of a clinically significant, sudden or life threatening deterioration of the following system(s) required my full and direct attention, intervention and personal management. The time I documented below is in addition to time spent performing reported procedures but includes the following listed in this critical care notation. Medical Decision Making - Medical Records Medical records reviewed: Yes: I reviewed the patient's medical records. - Patel Inquiry Pt receiving controlled substance: No Vital Signs: 12/03/21 15:55 12/03/21 16:01 12/03/21 16:30 Temperature 97.8 F Temperature Source Oral Pulse Rate 125 H 105 H Pulse Rate [Left Radial] 124 H Respiratory Rate 26 H 12 Blood Pressure 131/99 H 101/80 L Blood Pressure [Right Arm] 110/91 H Blood Pressure Mean Blood Pressure Mean [Right Arm] 97 Blood Pressure Source Automatic Cuff Automatic Cuff Blood Pressure Source [Right Arm] Automatic Cuff Blood Pressure Position Sitting Sitting 02 Sat by Pulse Oximetry 98 97 99 Oxygen Delivery Method Nasal Cannula Nasal Cannula Nasal Cannula Oxygen Flow Rate (LPM) 2 2 2 12/03/21 17:15 Temperature Temperature Source Pulse Rate 98 H Pulse Rate [Left Radial] Respiratory Rate Blood Pressure 113/82 Blood Pressure [Right Arm] Blood Pressure Mean 97 Blood Pressure Mean [Right Arm] Blood Pressure Source Blood Pressure Source [Right Arm] Blood Pressure Position 02 Sat by Pulse Oximetry 98 Oxygen Delivery Method Nasal Cannula Oxygen Flow Rate (LPM) 2 - Lab Data Lab results reviewed: Yes: I reviewed the patient's lab results. Lab Results 12/03/21 16:00: WBC 13.6 H, RBC 4.62, Hgb 13.9, Hct 43.9, MCV 95.0, MCH 30.1, MCHC 31.6 L, RDW 13.1, Plt Count 262, MPV 9.8, Neut % (Auto) 80.7 H, Lymph % (Auto) 11.5, [place] % (Auto) 6.0, Eos % (Auto) 0.5, Baso % (Auto) 1.3, Neut # (Auto) 11.0 H, Lymph # (Auto) 1.6, [place] # (Auto) 0.8, Eos # (Auto) 0.1, Baso # (Auto) 0.2 12/03/21 16:00: D-Dimer 0.97 H 12/03/21 16:00: Sodium 134 L, Potassium 4.4, Chloride 91 L, Carbon Dioxide 34 H, Anion Gap 13.4, BUN 27 H, Creatinine 0.50 L, Estimated Creat Clear 120, Estimated GFR 126, Est GFR ( Amer) 152, Glucose 134 H, Calcium 9.5, Total Bilirubin 0.5, AST 28, ALT 21, Alkaline Phosphatase 65, Troponin I < 0.01, NT-Pro-B Natriuret Pep 107, Total Protein 7.5 D, Albumin 4.3, Globulin 3.2, Albumin/Globulin Ratio 1.3, Procalcitonin 0.036 12/03/21 16:00: Lactate 1.2 Result diagrams: 12/03/21 16:00 12/03/21 16:00 Orders (Tests/Meds): ED MEDICATIONS Generic Name Dose Route Start Last Admin Trade Name Freq PRN Reason Stop Dose Admin Sodium Chloride 1,000 mls @ 999 mls/hr 12/03/21 16:15 12/03/21 16:15 Sod Chlor 0.9% 1000ml Bag IV 12/03/21 17:15 999 mls/hr .Q1H1M KENNY Administration Discontinued Medications Generic Name Dose Route Start Last Admin Trade Name Freq PRN Reason Stop Dose Admin Albuterol/Ipratropium 3 ml 12/03/21 16:14 12/03/21 16:15 Ipratropium/Albuterol 3 Ml Neb IH 12/03/21 16:15 3 ml ONCE ONE Administration Iopamidol 100 ml 12/03/21 17:15 12/03/21 17:16 Iopamidol-370 (76%);100ml Bottle IV 12/03/21 17:16 100 ml ONCE ONE Administration Methylprednisolone Sodium Succinate 125 mg 12/03/21 16:04 12/03/21 16:15 Methylprednisolone Sod Succ 125mg Vial IV 12/03/21 16:05 125 mg ONCE ONE Administration ORDERS Category Date Time Status Type and Screen Stat BBK 12/03/21 16:20 Received Covid-19 Nasal PCR ([facility]) Routine Lab 12/03/21 16:01 Stop Req Rapid PCR Covid and Flu A/B Stat Lab 12/03/21 18:14 Ordered Troponin I Q3H Lab 12/03/21 19:15 Ordered Troponin I Q3H Lab 12/03/21 22:15 Ordered
[2021-12-03 16:46] LABS: Lactic Acid 1.2 mmol/L (0.7-2.1)
[2021-12-03 16:47] LABS: Alanine Aminotransferase 21 U/L (12-78); Albumin Level 4.3 g/dl (3.5-5.0); Albumin/Globulin Ratio 1.3 (1.1-1.8); Alkaline Phosphatase 65 U/L (38-126); Anion Gap 13.4 mEq/L (5-15); Aspartate Amino Transferase 28 U/L (14-36); Bilirubin,Total 0.5 mg/dl (0.2-1.3); Blood Urea Nitrogen 27 mg/dl (7-17); Calcium 9.5 mg/dl (8.4-10.2); Carbon Dioxide 34 mmol/L (22.0-30.0); Chloride 91 mmol/L (98-107); Creatinine Clearance Estimated 120 mL/min (50-200); Estimated Glomerular Filt Rate 126 ml/min (>60); GFR (African American) 152 ML/MIN (>60); Globulin 3.2 g/dL (1.3-3.2); Glucose 134 mg/dl (74-100); Potassium 4.4 mmoL/L (3.5-5.1); Sodium 134 mmol/L (136-145); Total Protein,Serum 7.5 g/dl (6.3-8.2)
[2021-12-03 16:51] LABS: Basophils # 0.2 K/mm3 (0-0.2); Basophils % 1.3 % (0.1-2.0); Eosinophils # 0.1 K/mm3 (0.0-0.4); Eosinophils % 0.5 % (0.1-12.0); Hematocrit 43.9 % (37.0-47.0); Hemoglobin 13.9 g/dL (12.2-16.2); Lymphocytes # 1.6 K/mm3 (0.7-4.5); Lymphocytes % 11.5 % (10-50); Mean Corpuscular HGB Conc 31.6 g/dL (31.8-35.4); Mean Corpuscular Hemoglobin 30.1 pg (27.0-31.2); Mean Platelet Volume 9.8 fl (7.4-10.4); Monocytes # 0.8 K/mm3 (0.1-1.0); Neutrophils % 80.7 % (37.0-80.0); Platelet Count 262 K/mm3 (142-424); Red Blood Count 4.62 M/mm3 (4.20-5.40); Red Cell Distribution Width 13.1 % (11.5-17.5); White Blood Count 13.6 K/mm3 (4.8-10.8)
[2021-12-03 16:59] LABS: NT Pro Brain Natriuretic Pep. 107 pg/mL (0-125)
[2021-12-03 17:01] LABS: Troponin I < 0.01 ng/ml (0.00-0.034)
[2021-12-03 17:03] LABS: Procalcitonin 0.036 ng/mL (0.0-2.0)
[2021-12-03 17:34] LABS: D-Dimer 0.97 ug/mL (0.0-0.5)
--- NOTE | 2021-12-03 17:48 | PC.NURSE ---
checked on pt at this time, pt laying down in bed, notified pt we are waiting on her CT scan results. Pt states no needs at this time. Will continue to monitor
--- NOTE | 2021-12-03 18:11 | PC.NURSE ---
Dr. Kota galindo for ER MD
--- NOTE | 2021-12-03 18:15 | PC.NURSE ---
MARILIA KUNZ speaking with Dr. Escudero
--- NOTE | 2021-12-03 18:17 | PC.NURSE ---
Spoke with DEXTER Brooke regarding patient admission
[2021-12-03 18:36] LABS: Coronavirus 19, PCR Not Detected (NotDetected); Influenza A, PCR Not Detected (NotDetected); Influenza B, PCR Not Detected (NotDetected)
--- NOTE | 2021-12-03 18:53 | PC.NURSE ---
report given to Sigrid BURDICK
[2021-12-03 20:53] LABS: Troponin I < 0.01 ng/ml (0.00-0.034)
[2021-12-03 22:00] LABS: POC Glucose,Bedside 184 (70-110)
[2021-12-03 23:09] LABS: Troponin I < 0.01 ng/ml (0.00-0.034)
[2021-12-04] VITALS (9 sets, daily range): BP systolic 102–157; BP diastolic 60–90; PULSE 77–103; RESP 16–18; TEMP 36.6–37; O2SAT 94–99; BMI 20.4
[2021-12-04 04:00] LABS: POC Glucose,Bedside 135 (70-110)
--- NOTE | 2021-12-04 04:09 | PC.NURSE ---
Pt has rested well this shift. Pt is A/O x4. Pt has voiced no c/o of chest pain or SOA. Remains on 2L NC with O2 >90%. Pt wears 2L NC @ home. Lung sounds are inspiratory and expiratory wheezing bilaterally. Pt stated she did feel like the duo neb helped last night. Pt has been incontinent of urine and stool tonight and has worn a brief.
[2021-12-04 08:08] LABS: Basophils # 0.1 K/mm3 (0-0.2); Basophils % 1.2 % (0.1-2.0); Eosinophils # 0.1 K/mm3 (0.0-0.4); Eosinophils % 0.5 % (0.1-12.0); Hematocrit 43.5 % (37.0-47.0); Hemoglobin 13.5 g/dL (12.2-16.2); Lymphocytes # 0.6 K/mm3 (0.7-4.5); Lymphocytes % 5.7 % (10-50); Mean Corpuscular Hemoglobin 29.1 pg (27.0-31.2); Mean Platelet Volume 8.6 fl (7.4-10.4); Monocytes # 0.3 K/mm3 (0.1-1.0); Monocytes % 2.9 % (1.7-9.3); Neutrophils # 9.5 K/mm3 (1.8-7.8); Neutrophils % 89.6 % (37.0-80.0); Platelet Count 329 K/mm3 (142-424); Red Blood Count 4.63 M/mm3 (4.20-5.40); Red Cell Distribution Width 13.6 % (11.5-17.5); White Blood Count 10.6 K/mm3 (4.8-10.8)
[2021-12-04 08:20] LABS: MANUAL DIFFERENTIAL MANUAL DIFFERENTIAL (MANUAL DIFF)
[2021-12-04 08:22] LABS: Alanine Aminotransferase 23 U/L (12-78); Albumin Level 4.1 g/dl (3.5-5.0); Albumin/Globulin Ratio 1.5 (1.1-1.8); Alkaline Phosphatase 55 U/L (38-126); Anion Gap 13.2 mEq/L (5-15); Aspartate Amino Transferase 24 U/L (14-36); Bilirubin,Total 0.3 mg/dl (0.2-1.3); Blood Urea Nitrogen 29 mg/dl (7-17); Calcium 9.1 mg/dl (8.4-10.2); Carbon Dioxide 32 mmol/L (22.0-30.0); Chloride 95 mmol/L (98-107); Creatinine Clearance Estimated 111 mL/min (50-200); Estimated Glomerular Filt Rate 126 ml/min (>60); GFR (African American) 152 ML/MIN (>60); Globulin 2.8 g/dL (1.3-3.2); Glucose 152 mg/dl (74-100); Potassium 4.2 mmoL/L (3.5-5.1); Sodium 136 mmol/L (136-145); Total Protein,Serum 6.9 g/dl (6.3-8.2)
[2021-12-04 09:17] LABS: Hypersegmented Neutrophils 2+; Lymphocytes % 8 % (10-50); Monocytes % 2 % (2-9); Neutrophils % 90 % (42-76); Platelet Estimate Normal; Total Cells Counted 100
--- NOTE | 2021-12-04 09:41 | HMH.HP ---
*Admission Date: 12/03/21 *Chief complaint: Shortness of breath, chest pain *History of present illness: Ms. Aviles is a 61-year-old white female with a history of O2 dependent COPD, hypertension, and chronic back pain who presented to the ER yesterday with chest pain and 1 week history of increasing shortness of breath. She reported having COVID 2 weeks ago. She was worked up in the ER including CTA of the chest which was negative for PE or acute infiltrates. She was significantly dyspneic and tachycardic in admitted with a working diagnosis of COPD exacerbation. At the time of my exam this morning, she is less dyspneic but overall does not feel well. This apparently was not reported in the ER but she tells me she has been having diarrhea for the past 2 days. Denies nausea or vomiting. Appetite has been diminished. No blood in her stool. She also tells me she has generally not been doing well at home for quite some time. She is having difficulty with some of her ADLs. She lives with her sister who apparently also is in poor health and cannot offer sufficient help. Ms. Aviles has considered going into a shelter for long-term care. [facility] History Medical History: Reports:: Chronic Obstructive Pulmonary Disease (COPD), Hypertension Denies:: Cancer, Diabetes Mellitus Type 1, Diabetes Mellitus Type 2, MRSA, Seizures *Have you ever received a pneumonia vaccine?: No *Have you received a flu vaccine this season?: No Other Medical History: Reports: Other (chronic neck and back pain due to DJD/DDD) Laterality Cases: Bilateral: Tonsillectomy Other Surgeries: Yes: Appendectomy, Cholecystectomy, Colonoscopy, Hysterectomy-Total, Tubal Ligation Amputation: No Fractures: Yes (Bilat pinky toes, back T11 T12) - *Social History Smoking Status: Former smoker Tobacco Type: cigarettes # Packs/Day (cigarettes): 0 #Yrs smoked (if former smoker): 44 Alcohol Intake: never Substance Use Type: denies use *Occupational Status:: disabled Housing: house Household Members: family *Travel in the last 8 weeks: None Family Hx:: No significant family history Review of Systems - Constitutional Reports body ache(s), Reports lack of energy, Reports malaise, Reports weakness - Eyes Denies change in vision - ENT Reports nosebleed, Reports hearing loss, Reports nasal congestion, Reports sore throat - *Cardiovascular Reports chest pain, Reports shortness of breath with activity, Reports generalized swelling, Reports irregular heart rhythm, Reports rapid, pounding, or irregular heartbeat - *Respiratory Reports cough (Minimal), Denies excessive phlegm production - *Gastrointestinal Reports vomiting blood, Reports other (Diarrhea), Denies black, tarry stools - *Genitourinary Reports urinary incontinence, Reports urinary urgency, Denies abnormal vaginal bleeding - *Musculoskeletal Reports abnormal walking, Reports joint pain, Denies joint swelling - Integumentary/Breasts Denies change in skin color, Denies rash - *Neurologic Reports abnormal walking, Denies confusion, Denies memory loss, Denies seizure-like activity - Psychiatric Reports lack of enjoyment, Reports depression, Reports hopelessness - Endocrine Denies rapid, pounding, or irregular heartbeat - Hematologic/Lymphatic Denies easy bruising Meds Home Medications Medication Instructions Recorded Confirmed Type Ipratropium/Albuterol Sulfate 1 puff PO QIDP PRN 02/18/19 12/03/21 History [Combivent Respimat Inh] Tizanidine HCl 4 - 8 mg PO QIDP PRN 02/18/19 12/04/21 History Fexofenadine HCl 180 mg PO DAILY 10/12/21 12/03/21 History lisinopriL [Lisinopril] 10 mg PO DAILY 10/12/21 12/03/21 History Ergocalciferol (Vitamin D2) 50,000 units PO WEEKLY 10/13/21 12/03/21 History [Drisdol 50,000 units (1.25mg) capsule] Gabapentin [Neurontin 600mg 600 mg PO QID 10/13/21 12/03/21 History tablet] Sertraline HCl [Zoloft 100mg 100 mg PO DAILY 10/13/21 12/03/21 History tablet
[2021-12-04 09:44] LABS: Adenovirus F 40/41, stool Not Detected (NotDetected); Astrovirus Not Detected (NotDetected); Campylobacter Not Detected (NotDetected); Clostridium Difficile A/B, PCR Not Detected (NotDetected); Cryptosporidium Not Detected (NotDetected); Cyclospora Cayetanesis Not Detected (NotDetected); Entamoeba histolytica Not Detected (NotDetected); Enteroaggregative E coli Not Detected (NotDetected); Enteropathogenic E coli Not Detected (NotDetected); Enterotoxigenic E coli Not Detected (NotDetected); Giardia lamblia Not Detected (NotDetected); Norovirus Not Detected (NotDetected); Plesimonas Shigalloides, PCR Not Detected (NotDetected); Rotavirus A Not Detected (NotDetected); Salmonella, PCR Not Detected (NotDetected); Sapovirus Not Detected (NotDetected); Shiga-like toxin E coli Not Detected (NotDetected); Shigella Enterovasive E coli Not Detected (NotDetected); Vibrio Cholerae Not Detected (NotDetected); Vibrio, PCR Not Detected (NotDetected); Yersinia Entercolitica, PCR Not Detected (NotDetected)
[2021-12-04 10:52] LABS: POC Glucose,Bedside 200 (70-110)
--- NOTE | 2021-12-04 14:31 | P.CONPHA_ITS ---
[facility] Pharm[facility] VTE Monitoring - Patient Demographics Admission date: 12/04/21 Report Date: 12/04/21 Time: 14:31 Allergies/Adverse Reactions: Patient Allergies acetaminophen [From Panlor (hydrocodone-acetamin)] Allergy (Severe, Verified 11/04/21 15:56) cant breath hydrocodone [From Panlor (hydrocodone-acetamin)] Allergy (Severe, Verified 11/04/21 15:56) cant breath Penicillins Allergy (Verified 10/12/21 22:13) Height: 1.7 m Weight: 58.967 kg Patient Problems: Current Active Problems Acute exacerbation of chronic obstructive airways disease (Acute) - VTE Risk Labs: VTE Related Lab Results Hgb 13.5 g/dL (12.2-16.2) 12/04/21 07:00 Hct 43.5 % (37.0-47.0) 12/04/21 07:00 Plt Count 329 K/mm3 (142-424) D 12/04/21 07:00 BUN 29 mg/dl (7-17) H 12/04/21 07:00 Creatinine 0.50 mg/dl (0.52-1.04) L 12/04/21 07:00 Estimated Creat Clear 111 mL/min (50-200) 12/04/21 07:00 VTE Score: 4 VTE Risk Level: Low Risk - Prophylaxis Types of VTE Prophylaxis: TEDS Knee High (BUD HOSE ORDER PLACED) Location of Applied Device: Bilateral Lower Extremeties
[2021-12-04 17:13] LABS: POC Glucose,Bedside 172 (70-110)
--- NOTE | 2021-12-04 18:46 | PC.NURSE ---
PT IS RESTING IN BED. ALERT AND ORIENTED X4. PT REQUESTED SOMETHING FOR ABDOMINAL CRAMPS THIS SHIFT. PT STATES SHE HAS HAD 3 LOOSE BOWEL MOVEMENTS THIS SHIFT. LUNG SOUNDS DIMINISHED. ABDOMEN SOFT WITH ACTIVE BOWEL SOUNDS. MILD TENDERNESS WITH PALPATION. NO SWELLING NOTED TO BLE. WILL CONTINUE TO MONITOR.
[2021-12-04 20:35] LABS: POC Glucose,Bedside 251 (70-110)
[2021-12-05] VITALS (11 sets, daily range): BP systolic 91–108; BP diastolic 60–73; PULSE 83–105; RESP 16–22; TEMP 36.6–37.2; O2SAT 94–98; BMI 20.3
--- NOTE | 2021-12-05 05:40 | PC.NURSE ---
Patient is A&o x4. Patient tolerating 2l nc sating well above 90%. Patient does complain of abdominal cramps medicated patient per MAR with relief.
--- NOTE | 2021-12-05 08:58 | HMH.ACPN2 ---
<Mita Mallory - Last Filed: 12/05/21 08:58> Internal Medicine - PN: Subj *Date: 12/05/21 *Time: 08:58 Interval history: Patient has just been up to the bedside commode and is very short of breath. She states she did not sleep well at all last night. She states she does this with any activity. She also describes diffuse abdominal discomfort. Bowels last moved 2 days ago and was diarrhea. She has had no stools since then. The cramping started after she ate breakfast this morning. She is also somewhat nauseated. Exam Vital signs and Labs for Last 24 Hours: Temp Pulse Resp BP Pulse Ox 98.5 F 105 H 21 91/60 L 97 12/05/21 08:00 12/05/21 08:00 12/05/21 08:00 12/05/21 08:00 12/05/21 08:00 Laboratory Results - last 24 hr 12/04/21 07:00: Total Counted 100, Neutrophils % (Manual) 90 H, Lymphocytes % (Manual) 8 L, Monocytes % (Manual) 2, Hypersegmented Neuts 2+, Platelet Estimate Normal 12/04/21 09:35: Stl Aeromonas (PCR) Not detected, Stl C. cayetanensis PCR Not detected, Stool Rotavirus (PCR) Not detected, Stl Adenov F 40/41 PCR Not detected, Stool Astrovirus (PCR) Not detected, Stool Campylobacter PCR Not detected, Stl C.difficile Tox PCR Not detected, Stool Cryptosporidium PCR Not detected, Stl E.coli Shiga Tox PCR Not detected, Stool E coli O157 PCR Not detected, Stl Enterotoxigenic E PCR Not detected, Stool EPEC (PCR) Not detected, Stool EAEC (PCR) Not detected, Stl E. histolytica PCR Not detected, Stool Giardia Lamblia PCR Not detected, Stool Salmonella PCR Not detected, Stool Sapovirus (PCR) Not detected, Stl P. shigelloides PCR Not detected, Stl Shigella/EIEC PCR Not detected, St Y.enterocolitica PCR Not detected, Stool Vibrio (PCR) Not detected, Stl Vibrio cholerae PCR Not detected, Stl Norovirus GI/GII PCR Not detected 12/04/21 10:46: POC Glucose 200 H 12/04/21 17:03: POC Glucose 172 H 12/04/21 20:16: POC Glucose 251 H I & O for Last 24 hours: Intake & Output 12/02/21 12/03/21 12/04/21 12/05/21 11:59 11:59 11:59 11:59 Intake Total 120 / 120 960 / 960 Output Total 250 / 250 Balance 120 / 120 710 / 710 Weight 130 lb 129 lb 12.8 oz - Constitutional no acute distress, mild distress (After up to bedside commode.) - *Routine Respiratory Exam Present: prolonged expiratory phase, diminished air movement (Posteriorly) Comments: Dyspneic with talking - *Routine Cardiovascular Exam Present: RRR - *Routine Abdominal Exam Present: soft, normoactive bowel sounds. Absent: tenderness, distended - *Routine Extremities Exam Absent: edema, calf tenderness - *Routine Neurological Exam Present: alert, oriented X3 Assessment and Plan (1) Chronic back pain Status: Acute Category: Medical Code(s): M54.9 - Dorsalgia, unspecified; G89.29 - Other chronic pain (2) Depression Status: Acute Category: Medical Code(s): F32.A - Depression, unspecified (3) Physical debility Status: Acute Category: Medical Code(s): R53.81 - Other malaise (4) Acute exacerbation of chronic obstructive airways disease Status: Acute Category: Medical Code(s): J44.1 - Chronic obstructive pulmonary disease with (acute) exacerbation (5) Diarrhea Status: Acute Category: Medical Code(s): R19.7 - Diarrhea, unspecified (6) Hypertension Status: Chronic Category: Medical Code(s): I10 - Essential (primary) hypertension - Assessment and plan all Dx Assessment and Plan for all problems:: Continue with pulmonary care. Care management consult. <Tim Escudero - Last Filed: 12/05/21 18:35> Internal Medicine - PN: Subj *Date: 12/05/21 *Time: 18:34 Exam Vital signs and Labs for Last 24 Hours: Temp Pulse Resp BP Pulse Ox 98.8 F 92 H 22 106/73 L 98 12/05/21 16:00 12/05/21 18:33 12/05/21 16:00 12/05/21 16:00 12/05/21 18:33 Laboratory Results - last 24 hr 12/04/21 20:16: POC Glucose 251 H 12/05/21 11:58: POC Glucose 227 H I & O for Last 24 hours:
--- NOTE | 2021-12-05 10:12 | SW/DCPLANNER ---
Addendum entered by Gisele Reyes 12/08/21 13:32: [facility] [place] has accepted this patient for services. Patient will discharge home today. Addendum entered by Gisele Reyes 12/08/21 10:26: Patient information/order has been faxed to [facility]. I will follow up with Yoh[facility] at [facility] once patient information/order is reviewed. Patient will discharge home this afternoon. Original Note: I spoke with this patient regarding plans once medically stable for discharge. Patient expressed an interest in SNF level of care at time of discharge. PT/OT evaluated this patient this AM and stated that patient is physically safe to return home. I explained to patient that due to not physically having a need for therapy that Medicare would not cover SNF. I did offer Medicaid pending placement to patient: patient refused stating that she would need to return home with her sister and resume home health services. Patient was previously set up with [facility] home health. I will resume home health at time of discharge.
--- NOTE | 2021-12-05 10:28 | HMH.PTEV ---
Physical Therapy Evaluation Rehab PT IP Evaluation Start: 12/05/21 08:08 Freq: ONCE Status: Active Protocol: Document 12/05/21 10:23 PACHECO (Rec: 12/05/21 10:28 PACHECO [id number]) Subjective/History History History Ms. Aviles is a 61-year-old white female with a history of O2 dependent COPD, hypertension, and chronic back pain who presented to the ER yesterday with chest pain and 1 week history of increasing shortness of breath. She reported having COVID 2 weeks ago. She was worked up in the ER including CTA of the chest which was negative for PE or acute infiltrates. She was significantly dyspneic and tachycardic in admitted with a working diagnosis of COPD exacerbation. Subjective Subjective Pt reports prior I w/ ADL's - does note she lives w/ sister who does most housework Rehab PT IP Eval Objective Appearance Patient Behavior Appropriate,Cooperative Patient Orientation Place,Name,Birthday,Year Difficulty following instructions none Speech Pattern Appropriate,Soft-Spoken Ambulation Patient Able to Ambulate Yes Ambulation Observation IP General Gait Pattern Observation No Deviations/Normal Ambulation Distance (feet) 30 Ambulation Assistive Device None Ambulation Ability Supervision/Stand by,Contact Guard/Hand Hold Balance Ability to Arise Able, uses arms to help Sitting Balance Steady, safe Standing Balance Narrow stance w/o support Dynamic Sitting Balance Ability Good Dynamic Standing Balance Ability Fair Transfers Bed Transfer Ability Supervision/Stand by Chair Transfer Ability Supervision/Stand by Sit to Stand Bed Transfer Ability Supervision/Stand by Sit to Stand Chair Transfer Ability Supervision/Stand by ROM All Extremities PT ROM Status WFL Rehab PT IP prob,goals,plan Problems Date of Evaluation: 12/05/21 PT IP Problems Other Other Pt Problem Pulmonary Rehab Potential Rehab Potential Innapropriate for Skilled Therapy Discharge Plan PT Discharge Plan Pt close to baseline function - pt physical issue is COPD -
--- NOTE | 2021-12-05 11:29 | HMH.OTEV ---
OT Inpatient Evaluation Rehab OT IP Evaluation Start: 12/05/21 08:08 Freq: ONCE Status: Complete Protocol: Document 12/05/21 11:11 JAHAIRASANTANA (Rec: 12/05/21 11:28 JAHAIRASANTANA [id number]) Rehab OT IP Assessment Subjective History Ms. Aviles is a 61-year-old white female with a history of O2 dependent COPD, hypertension, and chronic back pain who presented to the ER yesterday with chest pain and 1 week history of increasing shortness of breath. She reported having COVID 2 weeks ago. She was worked up in the ER including CTA of the chest which was negative for PE or acute infiltrates. She was significantly dyspneic and tachycardic in admitted with a working diagnosis of COPD exacerbation. At the time of my exam this morning, she is less dyspneic but overall does not feel well . This apparently was not reported in the ER but she tells me she has been having diarrhea for the past 2 days. Denies nausea or vomiting. Appetite has been diminished. No blood in her stool. She also tells me she has generally not been doing well at home for quite some time. She is having difficulty with some of her ADLs. She lives with her sister who apparently also is in poor health and cannot offer sufficient help. Ms. Aviles has considered going into a [facility] for long- term care. [facility] History Medical History: Reports:: Chronic Obstructive Pulmonary Disease (COPD), Hypertension. Patient lives in 1 story home with 3-4 LIA with sister. Patient stated the house is not in very good condition/
[2021-12-05 12:05] LABS: POC Glucose,Bedside 227 (70-110)
--- NOTE | 2021-12-05 14:48 | XR_ITS ---
FINAL REPORT CLINICAL HISTORY: abd pain FINDINGS: Chest: A single view of the chest demonstrates chronic changes in both lungs. There are healed fracture deformities of the right 7th and 8th ribs posteriorly. Abdomen: Flat and upright views of the abdomen demonstrate gas and stool throughout the colon. There are no abnormally dilated loops of small bowel. There is no free air. IMPRESSION: No acute process. Reviewed, Interpreted and Dictated by Constantino Patino MD Transcribed by Lian Card Authenticated and [facility]
--- NOTE | 2021-12-05 17:30 | PC.NURSE ---
shift summary: Pt has had multiple complaints of abdominal pain throughout the day described as severe cramping. medicated with PRN medications per JUL. Pt has had very little relief. Pt states that this all started after she ate breakfast this morning. pt has not had any nausea/vomiting/diarrhea. abd is not distended or firm. Cramping is all over per the patient not a specific location. Notified Dr Escudero @ 1430 that PRN medication is not relieving pain. Orders received for acute abdominal series, orders carried out, nothing acute noted in report. Dr Escudero rounding at this time. After MD spoke to patient medications were adjusted to ACHS. LS have remained diminished t/o. Sats stable on 2LNC. Pt denies SOA at rest. SOA upon exertion is pt baseline.
[2021-12-05 18:44] LABS: Amylase 36 U/L (30-110); Lipase 22 U/L (23-300)
[2021-12-06] VITALS (9 sets, daily range): BP systolic 88–141; BP diastolic 59–86; PULSE 73–110; RESP 16–21; TEMP 36.5–36.9; O2SAT 94–100; BMI 20.5
[2021-12-06 01:20] LABS: POC Glucose,Bedside 231 (70-110)
--- NOTE | 2021-12-06 05:34 | PC.NURSE ---
pt rested some through the night, pt still complains of abdominal bloating and cramping; pt states feels like lot of pressure and gas, states levsin and simethicone help some, skin pwd, 02 at 2L with sats 96%; lung sounds diminished, no edema noted, VSS; pt blood sugars over 200 and not on sliding scale, pt voiding without difficulty, no other issues or concerns noted,
[2021-12-06 06:16] LABS: POC Glucose,Bedside 196 (70-110)
--- NOTE | 2021-12-06 09:01 | CT_ITS ---
FINAL REPORT TECHNIQUE: Axial images through the abdomen and pelvis were performed without contrast. This study was performed with techniques to keep radiation doses as low as reasonably achievable, (ALARA). Individualized dose reduction techniques using automated exposure control or adjustment of mA and/or kV according to the patient's size were employed. CLINICAL HISTORY: diffuse abdominal pain COMPARISON: November 20, 2021 FINDINGS: Abdomen: The lung bases are clear. The liver parenchyma is homogeneous. The gallbladder is surgically absent. The spleen, pancreas, adrenals and kidneys are unremarkable. There is a small fat containing midline hernia in the upper abdominal wall. Pelvis: The urinary bladder is unremarkable. The appendix is not visualized. There is no localized inflammatory reaction. There is no pelvic mass or inflammation. IMPRESSION: No acute abnormality. Reviewed, Interpreted and Dictated by Constantino Patino MD Transcribed by Bharat Mcdonald Authenticated and [facility]
--- NOTE | 2021-12-06 09:25 | HMH.ACPN2 ---
<Mita Mallory - Last Filed: 12/06/21 09:25> Internal Medicine - PN: Subj *Date: 12/06/21 *Time: 09:25 Interval history: Patient continues to have abdominal pain. She slept very little last night due to the discomfort. She has had no further stools. She is passing a little gas. Her stomach hurts worse after eating. Acute abdominal series yesterday revealed gas and stool throughout the colon. No abnormally dilated loops of small bowel. No free air. Patient states her breathing is doing okay. She denies chest pain. Exam Vital signs and Labs for Last 24 Hours: Temp Pulse Resp BP Pulse Ox 98.3 F 110 H 16 141/86 H 100 12/06/21 08:00 12/06/21 08:00 12/06/21 08:00 12/06/21 08:00 12/06/21 08:00 Laboratory Results - last 24 hr 12/05/21 11:58: POC Glucose 227 H 12/05/21 18:21: Amylase 36, Lipase 22 L 12/06/21 01:12: POC Glucose 231 H 12/06/21 06:06: POC Glucose 196 H I & O for Last 24 hours: Intake & Output 12/03/21 12/04/21 12/05/21 12/06/21 11:59 11:59 11:59 11:59 Intake Total 120 / 120 960 / 960 840 / 840 Output Total 250 / 250 Balance 120 / 120 710 / 710 840 / 840 Weight 130 lb 129 lb 12.79 oz 131 lb Microbiology Reports for the Last 24 Hours: Microbiology 12/03/21 16:05 Blood Blood Culture - Preliminary NO GROWTH AFTER 48 HOURS 12/03/21 16:05 Blood Blood Culture - Preliminary NO GROWTH AFTER 48 HOURS - Constitutional mild distress (Patient with abdominal discomfort and curled in a ball in the bed.) - *Routine Respiratory Exam Present: CTA bilaterally (Anteriorly and posteriorly with diminished breath sounds) - *Routine Cardiovascular Exam Present: RRR - *Routine Abdominal Exam Present: soft, tenderness (In all upper quadrants especially epigastrium), guarding. Absent: normoactive bowel sounds (Hyperactive), distended - *Routine Extremities Exam Absent: edema, calf tenderness Assessment and Plan (1) Chronic back pain Status: Acute Category: Medical Code(s): M54.9 - Dorsalgia, unspecified; G89.29 - Other chronic pain (2) Depression Status: Acute Category: Medical Code(s): F32.A - Depression, unspecified (3) Physical debility Status: Acute Category: Medical Code(s): R53.81 - Other malaise (4) Acute exacerbation of chronic obstructive airways disease Status: Acute Category: Medical Code(s): J44.1 - Chronic obstructive pulmonary disease with (acute) exacerbation (5) Diarrhea Status: Acute Category: Medical Code(s): R19.7 - Diarrhea, unspecified (6) Hypertension Status: Chronic Category: Medical Code(s): I10 - Essential (primary) hypertension (7) Abdominal pain Status: Acute Qualifiers: Abdominal location: generalized Qualified Code(s): R10.84 - Generalized abdominal pain Category: Medical Code(s): R10.9 - Unspecified abdominal pain (8) Acute and chronic respiratory failure Status: Acute Qualifiers: Respiratory failure complication: hypoxia and hypercapnia Qualified Code(s): J96.21 - Acute and chronic respiratory failure with hypoxia; J96.22 - Acute and chronic respiratory failure with hypercapnia Category: Medical Code(s): J96.20 - Acute and chronic respiratory failure, unspecified whether with hypoxia or hypercapnia - Assessment and plan all Dx Assessment and Plan for all problems:: Patient is admitted and started on ketorolac for pain and will be started on a PPI. She will also have a CT of the abdomen. <Tim Escudero - Last Filed: 12/06/21 17:40> Internal Medicine - PN: Subj *Date: 12/06/21 *Time: 17:39 Exam Vital signs and Labs for Last 24 Hours: Temp Pulse Resp BP Pulse Ox 98.1 F 103 H 21 102/59 L 97 12/06/21 15:35 12/06/21 15:35 12/06/21 15:35 12/06/21 15:35 12/06/21 15:35 Laboratory Results - last 24 hr 12/05/21 18:21: Amylase 36, Lipase 22 L 12/06/21 01:12: POC Glucose
--- NOTE | 2021-12-06 10:26 | PC.NURSE ---
Pt off floor for ct at this time.
[2021-12-06 16:57] LABS: POC Glucose,Bedside 258 (70-110)
--- NOTE | 2021-12-06 19:32 | PC.NURSE ---
Pt states she has still had intermittent abd pain, especially post eating. Has been medicated per jul, states she is ok at this time. Dr. Escudero aware of pain. CB in reach. VSS. NAD at this time. Has seemed to tolerate chocolate ensure.
[2021-12-07] VITALS (11 sets, daily range): BP systolic 102–134; BP diastolic 64–86; PULSE 70–112; RESP 16–20; TEMP 36.7–37.1; O2SAT 96–99; BMI 20.5
[2021-12-07 04:55] LABS: POC Glucose,Bedside 233 (70-110)
--- NOTE | 2021-12-07 05:21 | PC.NURSE ---
pt complaining of abdominal pain unrelieved completely by medication regimen and pain meds; pt states it helps for a little but then comes back; pt has been [place] [facility] [place] and unsuccessful; pt stated she has gone 2 months before without a bowel movement and has always had trouble with her bowels even as a little child; abd tender and mildly distended; hypoactive bowel sounds noted; skin pwd; no edema; lung sounds diminished with fine crackles heard at bases; 02 sats 98% on 02 at 2L; no other issues or concerns at this time. fsbs remain to be over 200.
--- NOTE | 2021-12-07 08:06 | HMH.ACPN2 ---
<Fouzia Louis - Last Filed: 12/07/21 08:06> Internal Medicine - PN: Subj *Date: 12/07/21 *Time: 08:06 Interval history: Patient complains of severe pain in her right upper abdomen, epigastric area, and into her right lower quadrant. She states all of this pain began immediately after eating. She is extremely nauseated. She states her shortness of breath has improved. Exam Vital signs and Labs for Last 24 Hours: Temp Pulse Resp BP Pulse Ox 98.0 F 110 H 18 121/75 98 12/07/21 07:51 12/07/21 07:51 12/07/21 07:51 12/07/21 07:51 12/07/21 07:51 Laboratory Results - last 24 hr 12/06/21 15:44: POC Glucose 258 H 12/07/21 04:39: POC Glucose 233 H I & O for Last 24 hours: Intake & Output 12/04/21 12/05/21 12/06/21 12/07/21 11:59 11:59 11:59 11:59 Intake Total 120 / 120 960 / 960 840 / 840 120 / 120 Output Total 250 / 250 0 / 0 Balance 120 / 120 710 / 710 840 / 840 120 / 120 Weight 130 lb 129 lb 12.79 oz 131 lb 131 lb 3 oz - Constitutional no acute distress - *Routine Respiratory Exam Present: CTA bilaterally - *Routine Cardiovascular Exam Present: RRR - *Routine Abdominal Exam Present: soft, normoactive bowel sounds, tenderness (Epigastric area, right upper quadrant, right lower quadrant) - *Routine Extremities Exam Absent: cyanosis, clubbing, edema - *Routine Skin Exam Present: warm. Absent: rash - *Routine Neurological Exam Present: alert, oriented X3 Assessment and Plan (1) Chronic back pain Status: Acute Category: Medical Code(s): M54.9 - Dorsalgia, unspecified; G89.29 - Other chronic pain (2) Depression Status: Acute Category: Medical Code(s): F32.A - Depression, unspecified (3) Physical debility Status: Acute Category: Medical Code(s): R53.81 - Other malaise (4) Acute exacerbation of chronic obstructive airways disease Status: Acute Category: Medical Code(s): J44.1 - Chronic obstructive pulmonary disease with (acute) exacerbation (5) Diarrhea Status: Acute Category: Medical Code(s): R19.7 - Diarrhea, unspecified (6) Hypertension Status: Chronic Category: Medical Code(s): I10 - Essential (primary) hypertension (7) Abdominal pain Status: Acute Qualifiers: Abdominal location: generalized Qualified Code(s): R10.84 - Generalized abdominal pain Category: Medical Code(s): R10.9 - Unspecified abdominal pain (8) Acute and chronic respiratory failure Status: Acute Qualifiers: Respiratory failure complication: hypoxia and hypercapnia Qualified Code(s): J96.21 - Acute and chronic respiratory failure with hypoxia; J96.22 - Acute and chronic respiratory failure with hypercapnia Category: Medical Code(s): J96.20 - Acute and chronic respiratory failure, unspecified whether with hypoxia or hypercapnia - Assessment and plan all Dx Assessment and Plan for all problems:: Abdominal and pelvic CT showed no abnormality. Patient states the Toradol is not helping her pain. She has hyoscyamine and Protonix ordered as well. We will start on some Zofran. Will discuss pain medication with Dr. Escudero. <Tim Escudero - Last Filed: 12/07/21 12:09> Internal Medicine - PN: Subj *Date: 12/07/21 *Time: 12:07 Exam Vital signs and Labs for Last 24 Hours: Temp Pulse Resp BP Pulse Ox 98.0 F 102 H 18 121/75 98 12/07/21 07:51 12/07/21 11:02 12/07/21 07:51 12/07/21 07:51 12/07/21 11:02 Laboratory Results - last 24 hr 12/06/21 11:26: POC Glucose 251 H 12/06/21 15:44: POC Glucose 258 H 12/07/21 04:39: POC Glucose 233 H 12/07/21 11:00: POC Glucose 294 H 12/07/21 11:11: Lactate 1.6 I & O for Last 24 hours: Intake & Output 12/05/21 12/06/21 12/07/21 12/08/21 11:59 11:59 11:59 11:59 Intake Total 960 / 960 840 / 840 600 / 600 Output Total 250 / 250 0 / 0 Balance 710 / 710 840 / 840 600 / 600 Weight 129 lb 12.79 oz 131 lb 131 lb 3 oz Assessment and Plan (1) Chron
--- NOTE | 2021-12-07 08:52 | CT_ITS ---
FINAL REPORT TECHNIQUE: After the administration of oral and intravenous contrast, axial images were obtained through the abdomen and pelvis by computed tomography. The study was performed with techniques to keep radiation dose as low as reasonably achievable, (ALARA). Individual dose reduction techniques using automated exposure control or adjustment of mA and/or kV according to the patient's size were employed. CLINICAL HISTORY: r/o ischemic bowel COMPARISON: December 06, 2021 FINDINGS: Abdomen: The lung bases are clear. There is a little benign-appearing cyst measuring 1 cm in the superior right liver lobe. The gallbladder is surgically absent. The spleen, pancreas, adrenals and kidneys appear unremarkable. The aorta is normal in caliber. There is no free fluid or adenopathy. There is a small fat containing hernia of the midline upper abdominal wall. Pelvis: The appendix is not identified. There is a large amount of stool throughout the colon. No abnormal mucosal thickening is seen in the small bowel. There is no stranding in the root of the mesentery The urinary bladder is unremarkable. There is no free fluid or adenopathy. IMPRESSION: Large amount of stool throughout the colon. Reviewed, Interpreted and Dictated by Constantino Patino MD Transcribed by Lian Card Authenticated and [facility]
--- NOTE | 2021-12-07 09:47 | PC.NURSE ---
Pt off floor to CT at this time.
--- NOTE | 2021-12-07 10:01 | PC.NURSE ---
pt back to floor
--- NOTE | 2021-12-07 11:08 | DIET.NUTRFU ---
Addendum entered by Sarah Villa RD, LD 12/08/21 11:17: Patient's EGD completed 12/07 showed GERD, an early Schatzki's ring, sliding hiatal hernia, mid/distal gastritis, and a small linear antral ulcer. Dr. Varela continued her on PPIs and added Carafate. plan to discharge home today Original Note: Meal intake continues to be poor, today during round she was c/o of abdominal pain, provider had sx consulted and CT scan. She is drinking ensure most of the time to help meet nutritional needs. No new labs to review, glucose has been elevated >200. She is on PPI, she has no hx of DM at this time. Wt stable at this time, increased risk for wt loss d/t poor intake
[2021-12-07 11:13] LABS: POC Glucose,Bedside 251 (70-110)
[2021-12-07 11:14] LABS: POC Glucose,Bedside 294 (70-110)
[2021-12-07 11:27] LABS: Lactic Acid 1.6 mmol/L (0.7-2.1)
--- NOTE | 2021-12-07 12:07 | HMH.GSCON ---
*Admission Date: 12/04/21 *Reason for consult:: Abdominal pain; nausea *History of present illness: This is a 61-year-old female seen in consultation from her primary care provider for evaluation regarding abdominal pain and nausea. She was admitted after initial presentation to the emergency department on December 03 with COPD exacerbation. Over the past 2 days she has had increasing abdominal pain and intermittent nausea. She does note some recent diarrhea; however, no bowel movements over the past 24 hours. Note: Diarrhea panel from earlier during this admission was negative. During this hospitalization, lactate, liver function studies, amylase, and lipase were normal. A CT scan revealed no acute anomalies. A small fat-containing hernia in the upper mid abdomen was noted. She is status postcholecystectomy. Review of Systems - Constitutional Denies chills - *Respiratory Reports shortness of breath with activity - *Gastrointestinal Reports abdominal pain, Reports nausea - *Neurologic Reports abnormal walking, Reports weakness, Denies confusion, Denies memory loss, Denies seizure-like activity [facility] History Medical History: Reports:: Chronic Obstructive Pulmonary Disease (COPD), Hypertension Denies:: Cancer, Diabetes Mellitus Type 1, Diabetes Mellitus Type 2, MRSA, Seizures *Have you ever received a pneumonia vaccine?: No *Have you received a flu vaccine this season?: No Other Medical History: Reports: Other (chronic neck and back pain due to DJD/DDD) Laterality Cases: Bilateral: Tonsillectomy Other Surgeries: Yes: Appendectomy, Cholecystectomy, Colonoscopy, Hysterectomy-Total, Tubal Ligation Amputation: No Fractures: Yes (Bilat pinky toes, back T11 T12) - *Social History Smoking Status: Former smoker Tobacco Type: cigarettes # Packs/Day (cigarettes): 0 #Yrs smoked (if former smoker): 44 Alcohol Intake: never Substance Use Type: denies use *Occupational Status:: disabled Housing: house Household Members: family *Travel in the last 8 weeks: None Family Hx:: No significant family history Meds Home Medications Medication Instructions Recorded Confirmed Type Ipratropium/Albuterol Sulfate 1 puff PO QIDP PRN 02/18/19 12/03/21 History [Combivent Respimat Inh] Tizanidine HCl 4 - 8 mg PO QIDP PRN 02/18/19 12/04/21 History Fexofenadine HCl 180 mg PO DAILY 10/12/21 12/03/21 History lisinopriL [Lisinopril] 10 mg PO DAILY 10/12/21 12/03/21 History Ergocalciferol (Vitamin D2) 50,000 units PO WEEKLY 10/13/21 12/03/21 History [Drisdol 50,000 units (1.25mg) capsule] Gabapentin [Neurontin 600mg 600 mg PO QID 10/13/21 12/03/21 History tablet] Sertraline HCl [Zoloft 100mg 100 mg PO DAILY 10/13/21 12/03/21 History tablet] Acetaminophen [Acetaminophen 325mg 650 mg PO Q4HP PRN tab 10/15/21 12/03/21 Rx tab] Sennosides/Docusate Sodium 2 each PO BIDP PRN 10/29/21 12/03/21 History [Senokot-S Tablet] Ondansetron [Ondansetron Odt 8mg 8 mg PO Q12HP PRN 11/18/21 12/03/21 History Tab] Linaclotide [Linzess] 290 mcg PO DAILY 12/04/21 12/04/21 History Montelukast Sodium [Singulair] 10 mg PO PM 12/04/21 12/04/21 History Allergies Allergy/AdvReac Type Severity Reaction Status Date / Time acetaminophen Allergy Severe cant breath Verified 11/04/21 15:56 [From Panlor (hydrocodone-acetamin)] hydrocodone Allergy Severe cant breath Verified 11/04/21 15:56 [From Panlor (hydrocodone-acetamin)] Penicillins Allergy Verified 10/12/21 22:13 Exam Vital signs and Labs for Last 24 Hours: Temp Pulse Resp BP Pulse Ox 98.0 F 102 H 18 121/75 98 12/07/21 07:51 12/07/21 11:02 12/07/21 07:51 12/07/21 07:51 12/07/21 11:02 Laboratory Results - last 24 hr 12/06/21 11:26: POC Glucose 251 H 12/06/21 15:44: POC Glucose 258 H 12/07/21 04:39: POC Glucose 233 H 12/07/21 11:00: POC Glucose 294 H 12/07/21 11:11: Lactate 1.6 I & O for Last 24 hours: Intake & Output
--- NOTE | 2021-12-07 12:09 | PC.NURSE ---
pt assisted to vehicle via wheelchair
--- NOTE | 2021-12-07 13:50 | FL_ITS ---
FINAL REPORT CLINICAL HISTORY: Ishemic bowel Generalized abd pain since Sunday w diarrhea, & dark red/ tar stool FINDINGS: SMALL BOWEL SERIES A preliminary information resource consultant film was obtained of the abdomen. A large amount of stool is present. Oral contrast was administered. Films were obtained over 2-1/2 hours. Contrast is seen passing from the small bowel into the colon. There is no evidence of obstruction. IMPRESSION: No evidence of obstruction. Reviewed, Interpreted and Dictated by Constantino Patino MD Transcribed by Bharat Mcdonald Authenticated and [facility] [place]
--- NOTE | 2021-12-07 14:20 | PC.NURSE ---
rounded on patient no concerns or questions voiced. stated she felt everyone had explained everything as it has come up, feels she has a good understanding of meds. states she wishes her pain would remain down, and she was worried about starting to eat again. no other concerns or complaints noted. encouraged to ring as needed
--- NOTE | 2021-12-07 15:13 | PC.NURSE ---
Addendum entered by Jose Peterson RN 12/07/21 15:14: * remains Original Note: Pt remians off floor at this time for small bowel follow through.
--- NOTE | 2021-12-07 15:43 | PC.NURSE ---
pt back to floor from rad
[2021-12-07 16:26] LABS: POC Glucose,Bedside 158 (70-110)
--- NOTE | 2021-12-07 16:28 | PC.NURSE ---
pt to rad
--- NOTE | 2021-12-07 17:58 | PC.WOUNDNOTE ---
pt had severe abdominal pain after breakfast. dr lucia notified and seen pt. warm blanket applied to abd area and prescribed meds given. iv dc in R ac. insertion of 20g iv R forearm SL. 2L O2 via NC, tolerating well with sats 98-99%. pt continued to have abd pain t/o shift relieved by pain meds. transfers independent to bedside commode. npo after midnight for EGD at 0700. call ramos/ personal items within reach, no questions or concerns at this time.
[2021-12-08] VITALS (16 sets, daily range): BP systolic 91–150; BP diastolic 56–88; PULSE 66–117; RESP 16–22; TEMP 36.3–37.2; O2SAT 95–100; BMI 21.1
[2021-12-08 00:16] LABS: POC Glucose,Bedside 325 (70-110)
--- NOTE | 2021-12-08 04:14 | PC.NURSE ---
PT HAS RESTED INTERMITTENTLY T/O SHIFT. SHE C/O PAIN ONCE AT THE BEGINNING OF THE SHIFT AND WAS MEDICATED PER MAR FOR PAIN WITH ADEQUATE RELIEF. LUNG SOUNDS ARE DIMINISHED BILATERALLY. ON 2L NASAL CANNULA AND IS TOLERATING WELL. AMBULATING TO BSC INDEPENDENTLY. REMAINS NPO FOR EGD THIS AM. NO OTHER COMPLAINTS/CONCERNS AT THIS TIME. VSS.
[2021-12-08 05:21] LABS: POC Glucose,Bedside 178 (70-110)
--- NOTE | 2021-12-08 06:28 | PC.NURSE ---
patient off floor for EGD at this time.
--- NOTE | 2021-12-08 06:33 | HMH.GSPN ---
Subjective Narrative: She states that she feels just a little bit better than yesterday Progress Note: A&P (1) Chronic back pain Status: Acute (2) Depression Status: Acute (3) Physical debility Status: Acute (4) Acute exacerbation of chronic obstructive airways disease Status: Acute (5) Diarrhea Status: Acute (6) Hypertension Status: Chronic (7) Abdominal pain Status: Acute Assessment and plan: Esophagogastroduodenoscopy this morning Follow-up results of small bowel follow-through (8) Acute and chronic respiratory failure Status: Acute Exam Vital signs and Labs for Last 24 Hours: Temp Pulse Resp BP Pulse Ox 98.5 F 66 18 91/59 L 97 12/08/21 04:00 12/08/21 04:00 12/08/21 04:00 12/08/21 04:00 12/08/21 04:00 Laboratory Results - last 24 hr 12/06/21 11:26: POC Glucose 251 H 12/07/21 11:00: POC Glucose 294 H 12/07/21 11:11: Lactate 1.6 12/07/21 16:19: POC Glucose 158 H 12/08/21 00:08: POC Glucose 325 H* 12/08/21 05:12: POC Glucose 178 H I & O for Last 24 hours: Intake & Output 12/05/21 12/06/21 12/07/21 12/08/21 11:59 11:59 11:59 11:59 Intake Total 960 / 960 840 / 840 600 / 600 240 / 240 Output Total 250 / 250 0 / 0 800 / 800 Balance 710 / 710 840 / 840 600 / 600 -560 / -560 Weight 129 lb 12.79 oz 131 lb 131 lb 3 oz 134 lb 9.6 oz - Constitutional no acute distress - *Routine Respiratory Exam Absent: respiratory distress - *Routine Cardiovascular Exam Absent: tachycardia
--- NOTE | 2021-12-08 07:14 | HMH.SCOPE ---
- Procedure: Date: 12/08/21 Patient Date of :: 1960 Procedure Performed:: Esophagogastroduodenoscopy with biopsy Indications:: Abdominal pain Nausea Performing Provider:: Yayo Varela MD Referring Provider:: Dr. Escudero Sedation:: Monitored anesthesia care Procedure:: After informed consent was obtained the patient was taken to the endoscopy suite. Sedation ensued after the patient was transferred to the left lateral decubitus position. Pulse, blood pressure, and oxygen saturation were monitored throughout the procedure. The endoscope was advanced beyond the duodenal bulb. Retroflexion within the gastric lumen was accomplished. The gastroscope was carefully removed and the patient was transferred to recovery in stable condition. Please see findings and specimens below for detail. Findings:: Gastroesophageal junction at 40 cm Early Schatzki ring Sliding hiatal hernia Mid/distal gastritis Small linear antral ulcer Specimens:: Antral biopsy (at site of small linear ulceration) Biopsy of pylorus Recommendations:: Continue proton pump inhibition Carafate added Complications:: No immediate Estimated blood obtained (mL): 1
--- NOTE | 2021-12-08 07:20 | HMH.ANESCL ---
[facility] Anesthesia Checklist - Patient Identification Patient Identification: Arm Band - Structural Data Admitted From: Inpatient Planned Operative Procedure/s: EGD Consent for Planned Operative Procedure(s) Verified: Yes Verified Documents: Surgical Consent - NPO Status Verified Time NPO: 00:00 - Chart Verification Results Verified: None - Airway Assessment C-Spine Mobility Assessed: Yes TMJ Mobility Assessed: Yes Dentition: Edentulous - Neurological Assessment Level of Consciousness: Awake, Alert, Appropriate - Anesthesia Plan Anesthesia Risk discussed: Yes ASA Class: III Anesthesia Type: MAC [facility] History I have reviewed the patient's past medical history: Yes Medical History: Reports:: Chronic Obstructive Pulmonary Disease (COPD), Hypertension Denies:: Cancer, Diabetes Mellitus Type 1, Diabetes Mellitus Type 2, MRSA, Seizures *Have you ever received a pneumonia vaccine?: No *Have you received a flu vaccine this season?: No Other Medical History: Reports: Other (chronic neck and back pain due to DJD/DDD) Anesthesia experience/problems:: none Laterality Cases: Bilateral: Tonsillectomy Other Surgeries: Yes: Appendectomy, Cholecystectomy, Colonoscopy, Hysterectomy-Total, Tubal Ligation Amputation: No Fractures: Yes (Bilat pinky toes, back T11 T12) - *Social History Smoking Status: Former smoker Tobacco Type: cigarettes # Packs/Day (cigarettes): 0 #Yrs smoked (if former smoker): 44 Alcohol Intake: never Substance Use Type: denies use *Occupational Status:: disabled Housing: house Household Members: family *Travel in the last 8 weeks: None Family Hx:: No significant family history
--- NOTE | 2021-12-08 07:27 | PC.NURSE ---
Duoneb treatment not given Pt out of room for a procedure.
--- NOTE | 2021-12-08 09:07 | HMH.ACPN2 ---
<Fouzia Louis - Last Filed: 12/08/21 09:07> Internal Medicine - PN: Subj *Date: 12/08/21 *Time: 09:07 Interval history: Patient states that she is feeling better since she got back from her scope. She still has some epigastric tenderness. She denies any shortness of breath or chest pain. Exam Vital signs and Labs for Last 24 Hours: Temp Pulse Resp BP Pulse Ox 97.4 F L 110 H 18 133/84 97 12/08/21 07:15 12/08/21 07:25 12/08/21 07:25 12/08/21 07:25 12/08/21 07:25 Laboratory Results - last 24 hr 12/06/21 11:26: POC Glucose 251 H 12/07/21 11:00: POC Glucose 294 H 12/07/21 11:11: Lactate 1.6 12/07/21 16:19: POC Glucose 158 H 12/08/21 00:08: POC Glucose 325 H* 12/08/21 05:12: POC Glucose 178 H I & O for Last 24 hours: Intake & Output 12/05/21 12/06/21 12/07/21 12/08/21 11:59 11:59 11:59 11:59 Intake Total 960 / 960 840 / 840 600 / 600 240 / 240 Output Total 250 / 250 0 / 0 800 / 800 Balance 710 / 710 840 / 840 600 / 600 -560 / -560 Weight 129 lb 12.79 oz 131 lb 131 lb 3 oz 134 lb 9.6 oz - Constitutional no acute distress - *Routine Respiratory Exam Present: CTA bilaterally - *Routine Cardiovascular Exam Present: RRR - *Routine Abdominal Exam Present: soft, normoactive bowel sounds, tenderness (epigastric) - *Routine Extremities Exam Absent: cyanosis, clubbing, edema - *Routine Skin Exam Present: warm. Absent: rash - *Routine Neurological Exam Present: alert, oriented X3 Assessment and Plan (1) Chronic back pain Status: Acute Category: Medical Code(s): M54.9 - Dorsalgia, unspecified; G89.29 - Other chronic pain (2) Depression Status: Acute Category: Medical Code(s): F32.A - Depression, unspecified (3) Physical debility Status: Acute Category: Medical Code(s): R53.81 - Other malaise (4) Acute exacerbation of chronic obstructive airways disease Status: Acute Category: Medical Code(s): J44.1 - Chronic obstructive pulmonary disease with (acute) exacerbation (5) Diarrhea Status: Acute Category: Medical Code(s): R19.7 - Diarrhea, unspecified (6) Hypertension Status: Chronic Category: Medical Code(s): I10 - Essential (primary) hypertension (7) Abdominal pain Status: Acute Qualifiers: Abdominal location: generalized Qualified Code(s): R10.84 - Generalized abdominal pain Category: Medical Code(s): R10.9 - Unspecified abdominal pain (8) Acute and chronic respiratory failure Status: Acute Qualifiers: Respiratory failure complication: hypoxia and hypercapnia Qualified Code(s): J96.21 - Acute and chronic respiratory failure with hypoxia; J96.22 - Acute and chronic respiratory failure with hypercapnia Category: Medical Code(s): J96.20 - Acute and chronic respiratory failure, unspecified whether with hypoxia or hypercapnia (9) Antral ulcer Status: Acute Category: Medical Code(s): K25.9 - Gastric ulcer, unspecified as acute or chronic, without hemorrhage or perforation (10) GERD (gastroesophageal reflux disease) Status: Acute Category: Medical Code(s): K21.9 - Gastro-esophageal reflux disease without esophagitis (11) Hiatal hernia Status: Acute Category: Medical Code(s): K44.9 - Diaphragmatic hernia without obstruction or gangrene - Assessment and plan all Dx Assessment and Plan for all problems:: Patient's EGD showed GERD, an early Schatzki's ring, sliding hiatal hernia, mid/distal gastritis, and a small linear antral ulcer. Dr. Varela continued her on PPIs and added Carafate. She may be able to discharge home today. Will discuss with Dr. Escudero. <Tim Escudero - Last Filed: 12/08/21 18:25> Internal Medicine - PN: Subj *Date: 12/08/21 *Time: 18:25 Exam Vital signs and Labs for Last 24 Hours: Temp Pulse Resp BP Pulse Ox 97.7 F 81 17 124/81 97 12/08/21 15:28 12/08/21 15:28 12/08/21 15:28 12/08/21 15:28 12/08/21 15:28 Laboratory Results -
--- NOTE | 2021-12-08 10:23 | PC.NURSE ---
Rounded pt, pt being discharged today. No needs expressed at this time.
--- NOTE | 2021-12-08 11:17 | PC.NURSE ---
Spoke with Funmilayo Escudero's office in re to med req for d/c.
--- NOTE | 2021-12-08 11:47 | HMH.PHAINT ---
DISCHARGE MEDICATION COUNSELING PROVIDED. DISCUSSED NEW OMEPRAZOLE (TAKE TWICE DAILY, AND BEFORE A MEAL) AND SUCRALFATE (WITH MEALS AND AT BEDTIME, MAY CAUSE CONSTIPATION) PRESCRIPTIONS. ALSO DISCUSSED NEW LINZESS RX SENT TO [facility]. PATIENT ENDORSED NO QUESTIONS AT THIS TIME.
[2021-12-08 11:54] LABS: POC Glucose,Bedside 230 (70-110)
--- NOTE | 2021-12-08 13:28 | PC.NURSE ---
assisted patient up to chair for lunch. no questions or concerns noted. eager for discharge. encouraged her to ring out as needed
[2021-12-08 16:06] LABS: POC Glucose,Bedside 200 (70-110)
--- NOTE | 2021-12-09 13:22 | CARE MANAGER ---
Spoke with patient's sister. She states patient is doing well since discharge and is at home waiting on home health to come. They deny any questions or concerns at this time. HEAVENLY Thorpe
--- NOTE | 2021-12-11 23:07 | HMH.DCSUM ---
General - General Admission date:: 12/03/21 <Tim Escudero - 12/13/21 22:37> 12/03/21 <WaylonFouzia barber - 12/11/21 23:13> Discharge date: 12/08/21 <HeribertoSamia - 12/11/21 23:13> HPI HPI: Ms. Aviles is a 61-year-old white female with a history of O2 dependent COPD, hypertension, and chronic back pain who presented to the ER yesterday with chest pain and 1 week history of increasing shortness of breath. She reported having COVID 2 weeks ago. She was worked up in the ER including CTA of the chest which was negative for PE or acute infiltrates. She was significantly dyspneic and tachycardic in admitted with a working diagnosis of COPD exacerbation. At the time of my exam this morning, she is less dyspneic but overall does not feel well. This apparently was not reported in the ER but she tells me she has been having diarrhea for the past 2 days. Denies nausea or vomiting. Appetite has been diminished. No blood in her stool. She also tells me she has generally not been doing well at home for quite some time. She is having difficulty with some of her ADLs. She lives with her sister who apparently also is in poor health and cannot offer sufficient help. Ms. Aviles has considered going into a custodial for long-term care. <Fouzia Louis - 12/11/21 23:13> Hospital Course Hospital Course: The patient was admitted for IV fluids, IV steroids, and DuoNeb treatments. She was continued on oxygen. She continued to complain of some diffuse abdominal discomfort as well as shortness of breath with any activity. Her diarrhea panel was negative. She had an abdominal series which showed nothing acute. Simethicone was added and amylase and lipase were ordered, which were normal. She had an abdominal pelvic CT due to increased abdominal pain and it showed no acute abnormality. She was started on a PPI and Toradol for pain. She had not had a bowel movement for a few days and was given a Dulcolax suppository. She continued to complain of nausea and abdominal pain. Her shortness of breath improved. She was started on Zofran for nausea. In reviewing old records, report was found from a colon biopsy in September 2020 showing evidence of ischemic mucosa. A CT with IV contrast was ordered to rule out ischemic bowel and surgery was consulted. The CT showed a large amount of stool throughout the colon. Surgery saw the patient and ordered a UGI/SBFT as well as an EGD. The upper GI showed no evidence of obstruction. The EGD showed an early Schatzki's ring, sliding hiatal hernia, mid/distal gastritis, and a small linear antral ulcer. The patient was continued on PPIs and Carafate was added. She was stable to be discharged home and will follow up with her PCP. <Fouzia Louis - 12/11/21 23:13> Objective Vital signs: Temp Pulse Resp BP Pulse Ox 97.7 F 81 17 124/81 97 12/08/21 15:28 12/08/21 15:28 12/08/21 15:28 12/08/21 15:28 12/08/21 15:28 <KotaTim Kai - 12/13/21 22:37> Temp Pulse Resp BP Pulse Ox 97.7 F 81 17 124/81 97 12/08/21 15:28 12/08/21 15:28 12/08/21 15:28 12/08/21 15:28 12/08/21 15:28 <Fouzia Louis - 12/11/21 23:13> Narrative: - Constitutional no acute distress - *Routine Respiratory Exam Present: CTA bilaterally - *Routine Cardiovascular Exam Present: RRR - *Routine Abdominal Exam Present: soft, normoactive bowel sounds, tenderness (epigastric) - *Routine Extremities Exam Absent: cyanosis, clubbing, edema - *Routine Skin Exam Present: warm. Absent: rash - *Routine Neurological Exam Present: alert, oriented X3 <Fouzia Louis - 12/11/21 23:13> DS: Diagnosis - Discharge Diagnosis (1) Chronic back pain Status: Acute (2) Depression Status: Acute (3) Physical debility Status: Acute (4) Acute exacerbation of chronic obstructive airways disease Status: Acute (5) Diarrhea Status: Acute (6) Hypertension St
== END 2021-12-08 18:15 | disposition home health service (06) ==
LOC: ER 16:38 → 2ND 18:22
PROVIDERS: Surgery; Admitting Provider Family Medicine; Emergency Provider Emergency Medicine; PCP Family Medicine; Visit Provider Family Medicine
PROC: 0DJ08ZZ Inspection of Upper Intestinal Tract, Via Natural or Artificial Opening Endoscopic (ICD-10-PCS; CPT 43235; principal; 2021-12-08 07:00)
DX: J44.1 Chronic obstructive pulmonary disease with (acute) exacerbation (principal); Z99.81 Dependence on supplemental oxygen; I10 Essential (primary) hypertension; Z87.891 Personal history of nicotine dependence; G89.29 Other chronic pain; K25.9 Gastric ulcer, unspecified as acute or chronic, without hemorrhage or perforation; R06.9 Unspecified abnormalities of breathing; Z20.822 Contact with and (suspected) exposure to COVID-19; Z79.899 Other long term (current) drug therapy; R19.7 Diarrhea, unspecified; J96.21 Acute and chronic respiratory failure with hypoxia; J96.22 Acute and chronic respiratory failure with hypercapnia; K21.9 Gastro-esophageal reflux disease without esophagitis; K44.9 Diaphragmatic hernia without obstruction or gangrene
CPT/HCPCS: 43239; 36415; 71045; 71275; 74021; 74176; 74177; 74250; 80053; 82150; 82962; 83605; 83690; 83880; 84145; 84484; 85007; 85025; 85378; 86850; 87040; 87507; 88305; 93005; 94640; 94760; 94761; 97161; 97165; 99285; C9803; G0378; J2405; Q9967; U0003; U0005

== ENCOUNTER 2021-12-13 16:35 | Emergency (ER) | payer MEDICARE, SELFPAY ==
[2021-12-13] VITALS (7 sets, daily range): BP systolic 141–155; BP diastolic 74–117; PULSE 92–105; RESP 18–20; TEMP 37.1; O2SAT 97–100; BMI 20.3
--- NOTE | 2021-12-13 17:23 | HMH.EDGENADL ---
ED Disposition Clinical Impression: Abdominal pain, generalized Constipation Qualifiers: Constipation type: other constipation type Qualified Code(s): K59.09 - Other constipation Nausea & vomiting Qualifiers: Vomiting type: unspecified Qualified Code(s): R11.2 - Nausea with vomiting, unspecified Disposition: Home, Self-Care Condition on Discharge: Good Instructions: DI for Constipation, DI for Acute Abdominal Pain, DI for Vomiting -- Adult Additional Instructions: Take your Zofran as previously prescribed for nausea and vomiting. MiraLAX for constipation and continue taking Senokot-S and Linzess. Follow-up with your primary care provider, call tomorrow. Additional instructions for ABDOMINAL PAIN: See your physician as soon as possible for further evaluation. Return immediately if worsening abdominal pain, vomiting, shortness of breath, fever, vomiting of blood or abdominal distention. Prescriptions: polyethylene glycoL 3350 [Miralax 17gm Packet] 17 gm PO DAILY #5 packet Transmission Status: Pending to [facility] Referrals: Gosia Macdonald [Primary Care Provider] - - Critical Care Critical Care Time: No Attestation: On 12/13/21, the high probability of a clinically significant, sudden or life threatening deterioration of the following system(s) required my full and direct attention, intervention and personal management. The time I documented below is in addition to time spent performing reported procedures but includes the following listed in this critical care notation. Medical Decision Making - Medical Records Medical records reviewed: Yes: I reviewed the patient's medical records. MR Comment: Reviewed discharge summary from recent admission here 12/03/2021 through 12/08/2021. She was admitted for COPD exacerbation but developed abdominal symptoms in the hospital. She had extensive evaluation including abdominal x-rays followed by [address] scans. She was seen by surgery for consultation. She had an EGD and a small bowel follow-through. CT was unremarkable except for large amount of stool. EGD showed early Schatzki's ring, sliding hiatal hernia, gastritis, and a linear antral ulcer. She was started on PPIs and Carafate. Discussion was had with the patient about senior living placement. Fax of abdominal pelvic CT with intravenous contrast performed at [facility] on 12/12/2021 was received and reviewed. It showed dense stool in the colon, no acute findings otherwise. - Patel Inquiry Pt receiving controlled substance: No Vital Signs: 12/13/21 16:33 12/13/21 17:11 12/13/21 17:30 Temperature 98.7 F Temperature Source Oral Pulse Rate 105 H 101 H Pulse Rate [Brachial] 104 H Respiratory Rate 20 Blood Pressure 146/85 H 141/95 H Blood Pressure [Right Arm] 141/105 H Blood Pressure Mean 110 Blood Pressure Mean [Right Arm] 117 Blood Pressure Source Automatic Cuff Blood Pressure Source [Right Arm] Automatic Cuff Blood Pressure Position Sitting Blood Pressure Position [Right Arm] Sitting 02 Sat by Pulse Oximetry 98 97 99 Oxygen Delivery Method Nasal Cannula Nasal Cannula Oxygen Flow Rate (LPM) 2 2 12/13/21 18:00 12/13/21 18:30 12/13/21 19:30 Temperature Temperature Source Pulse Rate 94 H 95 H 99 H Pulse Rate [Brachial] Respiratory Rate 18 Blood Pressure 149/95 H 155/117 H 144/98 H Blood Pressure [Right Arm] Blood Pressure Mean 113 129 108 Blood Pressure Mean [Right Arm] Blood Pressure Source Blood Pressure Source [Right Arm] Blood Pressure Position Blood Pressure Position [Right Arm] 02 Sat by Pulse Oximetry 99 100 97 Oxygen Delivery Method Oxygen Flow Rate (LPM) - Lab Data Lab Results 12/13/21 17:00: WBC 9.0, RBC 4.19 L, Hgb 12.7, Hct 37.1, MCV 88.5, MCH 30.3, MCHC 34.3, RDW 12.3, Plt Count 264, MPV 8.0, Neut % (Auto) 70.1, Lymph % (Auto) 20.7, Power % (Auto) 7.7, Eos % (Auto) 1.0,
[2021-12-13 17:29] LABS: Chloride 96 mmol/L (98-107); Sodium 136 mmol/L (136-145)
[2021-12-13 17:30] LABS: Potassium 3.6 mmoL/L (3.5-5.1)
--- NOTE | 2021-12-13 17:31 | PC.NURSE ---
ED MD AT BEDSIDE FOR EVALUATION
[2021-12-13 17:32] LABS: Alanine Aminotransferase 21 U/L (12-78); Albumin/Globulin Ratio 1.6 (1.1-1.8); Alkaline Phosphatase 47 U/L (38-126); Anion Gap 5.6 mEq/L (5-15); Aspartate Amino Transferase 23 U/L (14-36); Bilirubin,Total 0.5 mg/dl (0.2-1.3); Blood Urea Nitrogen 18 mg/dl (7-17); Calcium 9.2 mg/dl (8.4-10.2); Carbon Dioxide 38 mmol/L (22.0-30.0); Creatinine Clearance Estimated 139 mL/min (50-200); Estimated Glomerular Filt Rate 163 ml/min (>60); GFR (African American) 197 ML/MIN (>60); Globulin 2.5 g/dL (1.3-3.2); Glucose 169 mg/dl (74-100); Total Protein,Serum 6.5 g/dl (6.3-8.2)
[2021-12-13 17:35] LABS: Basophils % 0.5 % (0.1-2.0); Eosinophils # 0.1 K/mm3 (0.0-0.4); Hematocrit 37.1 % (37.0-47.0); Hemoglobin 12.7 g/dL (12.2-16.2); Lymphocytes # 1.9 K/mm3 (0.7-4.5); Lymphocytes % 20.7 % (10-50); Mean Corpuscular HGB Conc 34.3 g/dL (31.8-35.4); Mean Corpuscular Hemoglobin 30.3 pg (27.0-31.2); Mean Corpuscular Volume 88.5 fl (81-99); Monocytes # 0.7 K/mm3 (0.1-1.0); Monocytes % 7.7 % (1.7-9.3); Neutrophils # 6.3 K/mm3 (1.8-7.8); Neutrophils % 70.1 % (37.0-80.0); Platelet Count 264 K/mm3 (142-424); Red Blood Count 4.19 M/mm3 (4.20-5.40); Red Cell Distribution Width 12.3 % (11.5-17.5)
[2021-12-13 17:38] LABS: Lipase 28 U/L (23-300)
--- NOTE | 2021-12-13 17:38 | ECG_ITS ---
APPROVED REPORT Exam: Resting ECG HR:94 bpm ECG Measurements Heart Rate 94 AXES ID 148 P 81 QRSd 90 QRS 87 QT 354 T 70 QTc 406 Conclusion SINUS RHYTHM NORMAL ECG UNCONFIRMED REPORT Electronically signed by : Case Barrios MD 12/14/2021 21:01:46
--- NOTE | 2021-12-13 17:38 | PC.NURSE ---
Contacting [facility] regarding pt records from her visit their yesterday evening
--- NOTE | 2021-12-13 18:10 | PC.NURSE ---
Called [facility] ER again and spoke with [facility] regarding patient records; she reports she is trying to send them at this time, they are having some trouble with their computer.
[2021-12-13 18:14] LABS: Troponin I < 0.01 ng/ml (0.00-0.034)
--- NOTE | 2021-12-13 18:34 | PC.NURSE ---
Recieved CT ABD/Pelvis report from [facility] and the report was handed to MARILIA KUNZ
--- NOTE | 2021-12-13 19:28 | PC.NURSE ---
notified daughter that pt is ready for discharge
--- NOTE | 2021-12-13 19:30 | PC.NURSE ---
After reviewing patients record from 12/03/2021 with Erika Louis, it was noted that patient was considering going into a detention due to difficulty performing her adl's at home. MD spoke with patient to see if patient was interested in taking this route, if she felt as though she needed the assistance and patient stated that she does not want to go to a detention .
== END 2021-12-13 20:49 | disposition home or self-care (01) ==
PROVIDERS: Emergency Provider Emergency Medicine; PCP Family Medicine
DX: R10.84 Generalized abdominal pain (principal); K59.09 Other constipation; Z79.899 Other long term (current) drug therapy; Z80.0 Family history of malignant neoplasm of digestive organs; Z88.6 Allergy status to analgesic agent; I10 Essential (primary) hypertension; J44.9 Chronic obstructive pulmonary disease, unspecified; Z87.891 Personal history of nicotine dependence
CPT/HCPCS: 80053; 83690; 84484; 85025; 93005; 96365; 96375; 99284; J2405

== ENCOUNTER 2022-01-23 14:14 | Emergency (ER) | payer MEDICARE, SELFPAY ==
[2022-01-23 14:18] VITALS: RESP 20; TEMP 37; O2SAT 97; BMI 21.7
--- NOTE | 2022-01-23 14:39 | XR_ITS ---
FINAL REPORT CLINICAL HISTORY: leg swelling COMPARISON: December 03, 2021 FINDINGS: The heart size is normal. The mediastinum is normal. There is no focal infiltrate or edema. There are no pleural effusions. There is no pneumothorax. There is no osseous abnormality. IMPRESSION: No acute cardiopulmonary process Reviewed, Interpreted and Dictated by Adriel Root III, MD Transcribed by Bharat Mcdonald Authenticated and [facility]
[2022-01-23 14:59] LABS: Chloride 93 mmol/L (98-107)
[2022-01-23 15:00] LABS: Potassium 3.7 mmoL/L (3.5-5.1); Sodium 137 mmol/L (136-145)
[2022-01-23 15:02] LABS: Alanine Aminotransferase 11 U/L (12-78); Aspartate Amino Transferase 26 U/L (14-36); Blood Urea Nitrogen 12 mg/dl (7-17); Creatinine Clearance Estimated 119 mL/min (50-200); Estimated Glomerular Filt Rate 126 ml/min (>60); GFR (African American) 152 ML/MIN (>60)
[2022-01-23 15:03] LABS: Albumin Level 3.7 g/dl (3.5-5.0); Albumin/Globulin Ratio 1.3 (1.1-1.8); Alkaline Phosphatase 62 U/L (38-126); Calcium 8.7 mg/dl (8.4-10.2); Globulin 2.8 g/dL (1.3-3.2); Glucose 166 mg/dl (74-100); Total Protein,Serum 6.5 g/dl (6.3-8.2)
[2022-01-23 15:13] LABS: Basophils # 0.1 K/mm3 (0-0.2); Basophils % 0.6 % (0.1-2.0); Eosinophils # 0.2 K/mm3 (0.0-0.4); Eosinophils % 2.8 % (0.1-12.0); Hematocrit 37.2 % (37.0-47.0); Hemoglobin 11.4 g/dL (12.2-16.2); Lymphocytes # 2.8 K/mm3 (0.7-4.5); Mean Corpuscular HGB Conc 30.6 g/dL (31.8-35.4); Mean Corpuscular Hemoglobin 28.7 pg (27.0-31.2); Mean Corpuscular Volume 93.7 fl (81-99); Mean Platelet Volume 8.5 fl (7.4-10.4); Monocytes # 0.6 K/mm3 (0.1-1.0); Monocytes % 7.6 % (1.7-9.3); Neutrophils # 4.3 K/mm3 (1.8-7.8); Platelet Count 243 K/mm3 (142-424); Red Blood Count 3.97 M/mm3 (4.20-5.40); Red Cell Distribution Width 12.2 % (11.5-17.5); White Blood Count 7.9 K/mm3 (4.8-10.8)
--- NOTE | 2022-01-23 15:14 | CA_ITS ---
FINAL REPORT TECHNIQUE: Multiple transverse and longitudinal images were performed of right the femoral-popliteal deep venous system with augmentation and compression maneuvers. CLINICAL HISTORY: RLE swelling, redness, pain,HX SMOKING FINDINGS: Right lower extremity duplex ultrasound demonstrates normal flow in the deep venous system. There is no abnormal echogenicity to suggest thrombus. There is normal compression and augmentation. IMPRESSION: No evidence of right DVT. Reviewed, Interpreted and Dictated by Adriel Root III, MD Transcribed by Lucila Isaac Authenticated and [facility]
[2022-01-23 15:21] LABS: Anion Gap 2.7 mEq/L (5-15); Bilirubin,Total < 0.1 mg/dl (0.2-1.3); Carbon Dioxide 45 mmol/L (22.0-30.0)
[2022-01-23 15:24] LABS: Troponin I < 0.01 ng/ml (0.00-0.034)
[2022-01-23 15:46] LABS: NT Pro Brain Natriuretic Pep. 48.9 pg/mL (0-125)
[2022-01-23 15:51] LABS: Coronavirus 19, PCR Not Detected (NotDetected); Influenza A, PCR Not Detected (NotDetected); Influenza B, PCR Not Detected (NotDetected)
--- NOTE | 2022-01-23 16:21 | HMH.EDGENADL ---
Discharge Plan Disposition Patient Disposition: Home, Self-Care Condition: Fair Chief Complaint: Extremity Problem,Nontraumatic Prescriptions Prescriptions: New sulfamethoxazole-trimethoprim [Bactrim DS] 800-160 mg tablet 1 tab PO BID 7 Days Qty: 14 0RF No Action fexofenadine 180 MG tablet 180 mg PO DAILY lisinopril 10 MG tablet 10 mg PO DAILY gabapentin 600 MG tablet 600 mg PO QID sertraline 100 MG tablet 100 mg PO DAILY ergocalciferol (vitamin D2) 50,000 UNIT capsule 50,000 units PO WEEKLY acetaminophen 325 MG tablet 650 mg PO Q4HP PRN (Reason: Fever Or Mild Pain) 0RF tizanidine 4 MG tablet 4 - 8 mg PO QIDP PRN (Reason: MUSCLE SPASMS) Label Comments: TAKE ONE TO TWO TABLETS FOUR TIMES DAILY. ipratropium-albuterol 120 PUFF mist 1 puff PO QIDP PRN (Reason: breathing) Label Comments: INHALE 1 PUFF 4 TIMES EACH DAY sennosides-docusate sodium 1 EACH tablet 2 each PO BIDP PRN (Reason: Constipation) ondansetron 8 MG tablet,disintegrating 8 mg PO Q12HP PRN (Reason: nausea and vomiting) montelukast 10 MG tablet 10 mg PO PM omeprazole 40 MG capsule,delayed release(DR/EC) 40 mg PO BID Qty: 60 0RF sucralfate 1 GM tablet 1 gm PO ACHS Qty: 120 0RF linaclotide 290 MCG capsule 290 mcg PO DAILY Qty: 60 0RF polyethylene glycol 3350 17 GM powder in packet 17 gm PO DAILY Qty: 5 0RF Referrals Follow up/Referrals: Provider,Referral, MD [Referring] - See instructions Activity Restrictions/Add. Instructions Additional Instructions/Restrictions: Take antibiotic as prescribed. Follow-up with your primary care provider within 48 hours to establish care and ensure no worsening of symptoms. If you have any other concerning signs or symptoms, return to the emergency department for further evaluation. Clinical Impressions Clinical Impression: Cellulitis Discharge ED Provider: Todd Elias General Adult [facility] General Chief complaint: Extremity Problem,Nontraumatic Stated complaint: extremity problem Time Seen by Provider: 01/23/22 14:30 Mode of Arrival: EMS Source of Information: Patient Limitations: No Limitations Description of Symptoms (Recalled from ER Triage Doc. by RN): to ed per squad with c/o mahsa leg swelling redness to lower extremities seen by home health nurse sunday increased lasix to 40mg daily. states swelling worse. redness started today. pt pt denies sob wears o2 2L 18/12, fever, chills, vomiting History of Present Illness HPI narrative: This is a 61-year-old female with history of COPD on 4 L home oxygen, CAD, CHF who is presenting with lower extremity swelling and pain. Patient states that her swelling began getting worse approximately 1 week ago and has progressed to the point where is painful walk-on. Right is swollen greater than left. The right side is red, warm, but patient denies fevers, chills, nausea, vomiting, or any other concerning symptoms. No trauma to the area. Related Data Home Medications Medication Instructions Recorded Confirmed ipratropium 20 mcg-albuterol 100 1 puff PO QIDP PRN breathing 02/18/19 12/03/21 mcg/actuation mist for inhalation tizanidine 4 mg tablet 4 - 8 mg PO QIDP PRN MUSCLE SPASMS 02/18/19 12/04/21 fexofenadine 180 mg tablet 180 mg PO DAILY Allergy symptoms 10/12/21 12/03/21 lisinopril 10 mg tablet 10 mg PO DAILY High blood pressure 10/12/21 12/03/21 ergocalciferol (vitamin D2) 1,250 50,000 units PO WEEKLY Supplement 10/13/21 12/03/21 mcg (50,000 unit) capsule gabapentin 600 mg tablet 600 mg PO QID NEUROPATHY 10/13/21 12/03/21 sertraline 100 mg tablet 100 mg PO DAILY Depression 10/13/21 12/03/21 sennosides 8.6 mg-docusate sodium 2 each PO BIDP PRN Constipation 10/29/21 12/03/21 50 mg tablet ondansetron 8 mg disintegrating 8 mg PO Q12HP PRN nausea and 11/18/21 12/03/21 tablet vomiting montelukast 10 mg tablet 10 mg PO PM ALLERGIES 12/04/21 12/04/21 Prev
[2022-01-23 16:30] VITALS: BP 126/67; PULSE 102; O2SAT 99
--- NOTE | 2022-01-23 16:46 | ECG_ITS ---
APPROVED REPORT Exam: Resting ECG HR:91 bpm ECG Measurements Heart Rate 91 AXES OK 167 P 88 QRSd 105 QRS 89 QT 342 T 79 QTc 391 Conclusion SINUS RHYTHM POSSIBLE RIGHT ATRIAL ENLARGEMENT [0.25mV P-WAVE] BORDERLINE ECG INTERPRETATION BASED ON A DEFAULT AGE OF 40 YEARS UNCONFIRMED REPORT Electronically signed by : Case Barrios MD 01/24/2022 16:50:12
--- NOTE | 2022-01-23 16:52 | PC.NURSE ---
pts mother is calling pts to update him on pt's status
[2022-01-23 17:00] VITALS: BP 126/90; PULSE 100; O2SAT 98
[2022-01-23 18:00] VITALS: BP 132/82; PULSE 102; RESP 18; TEMP 36.9; O2SAT 99
--- NOTE | 2022-01-23 18:38 | PC.NURSE ---
Patient attempting to get a ride.
== END 2022-01-23 19:12 | disposition home or self-care (01) ==
PROVIDERS: Emergency Provider Emergency Medicine; PCP Family Medicine
DX: L03.116 Cellulitis of left lower limb (principal); L03.115 Cellulitis of right lower limb; J44.1 Chronic obstructive pulmonary disease with (acute) exacerbation; I25.10 Atherosclerotic heart disease of native coronary artery without angina pectoris; I50.9 Heart failure, unspecified; Z99.81 Dependence on supplemental oxygen
CPT/HCPCS: 71045; 80053; 83880; 84484; 85025; 93005; 93971; 96374; 99285; C9803; U0003; U0005

== ENCOUNTER 2022-07-12 10:13 | Inpatient (IN) | payer MEDICARE, SELFPAY ==
[2022-07-12] VITALS (35 sets, daily range): BP systolic 80–143; BP diastolic 53–86; PULSE 86–132; RESP 13–27; TEMP 35.3–37.1; O2SAT 75–100; BMI 20.9; BMI 21.4
--- NOTE | 2022-07-12 10:10 | PC.NURSE ---
anselmo cortez placed on pt for low temp and warm fluids given to pt, aware
--- NOTE | 2022-07-12 10:11 | ECG_ITS ---
APPROVED REPORT Exam: Resting ECG HR:101 bpm ECG Measurements Heart Rate 101 AXES IA 156 P 89 QRSd 102 QRS 85 QT 335 T 75 QTc 393 [address]ARD[address] ELEVATION, PROBABLY EARLY REPOLARIZATION [ST ELEVATION WITH NORMALLY INFLECTED T-WAVE] ABNORMAL RHYTHM ECG UNCONFIRMED REPORT Electronically signed by : Case Barrios MD 07/12/2022 18:36:02
--- NOTE | 2022-07-12 10:15 | HMH.EDGENADL ---
Discharge Plan Disposition Patient Disposition: Admitted As Inpatient Condition: Serious Clinical Impressions Clinical Impression: Acute hypercapnic respiratory failure Discharge ED Provider: Todd Whitley General Adult HPI General Chief complaint: Altered Mental Status Stated complaint: Unresponsive Time Seen by Provider: 07/12/22 10:18 History of Present Illness HPI narrative: Patient presents after having been found unresponsive at home this morning by her sister. History and physical are limited due to the patient's altered mental status. Symptoms are described as moderate to severe. When EMS responded and arrived at the scene she was responsive only to loud verbal stimuli with opening of her eyes she does have a history of being home oxygen dependent and is on 2 L at home. Related Data Home Medications Medication Instructions Recorded Confirmed ipratropium 20 mcg-albuterol 100 1 puff PO QIDP PRN breathing 02/18/19 07/12/22 mcg/actuation mist for inhalation tizanidine 4 mg tablet 4 - 8 mg PO QIDP PRN MUSCLE SPASMS 02/18/19 07/12/22 fexofenadine 180 mg tablet 180 mg PO DAILY Allergy symptoms 10/12/21 07/12/22 lisinopril 10 mg tablet 10 mg PO DAILY High blood pressure 10/12/21 07/12/22 sertraline 100 mg tablet 100 mg PO DAILY Depression 10/13/21 07/12/22 montelukast 10 mg tablet 10 mg PO PM ALLERGIES 12/04/21 07/12/22 ipratropium 20 mcg-albuterol 100 1 puff inhalation Q4H soa 04/04/22 07/12/22 mcg/actuation mist for inhalation (Combivent Respimat) clonazepam 0.5 mg tablet (Klonopin) 0.5 mg PO BID Anxiety 07/12/22 07/12/22 Previous Rx's Medication Instructions Recorded gabapentin 600 mg tablet 600 mg PO QID NEUROPATHY #120 tabs 06/02/22 Allergies Allergy/AdvReac Type Severity Reaction Status Date / Time acetaminophen Allergy Severe cant breath Verified 06/02/22 15:34 [From Panlor (hydrocodone-acetamin)] hydrocodone Allergy Severe cant breath Verified 06/02/22 15:34 [From Panlor (hydrocodone-acetamin)] Penicillins Allergy Verified 06/02/22 15:34 [facility] Disclaimer: The information contained in this section may have been updated after the patient was seen, as this information can be updated by other users. Social History Smoking Status: Current every day smoker tobacco type: cigarettes packs per day: 0 how long ago did patient quit smokin hours second hand exposure: Yes alcohol intake: never substance use type: denies use current occupational status: disabled Travel in the last 8 weeks: None household members: family housing: house caffeine: Yes ROS Obtained: Yes All systems reviewed & no additional complaints except as documented Physical Exam General General appearance: alert (Lethargic initially and responsive only to loud verbal stimuli with nonpurposeful movement of her extremities and opening of her eyes.) Head Head exam: atraumatic, normocephalic and normal inspection Eye Eye exam: Present other (Pale conjunctiva.) ENT ENT exam: Present normal exam, normal oropharynx, mucous membranes moist, TM's normal bilaterally and normal external ear exam Neck Neck exam: Present normal inspection, full ROM and trachea midline; Absent meningismus or lymphadenopathy Chest Chest inspection: Present normal inspection and symmetric chest wall rise; Absent tenderness Respiratory Respiratory exam: Present normal lung sounds bilaterally; Absent respiratory distress Cardiovascular Cardiovascular exam: Present regular rate and normal rhythm; Absent JVD Abdominal Exam Abdominal exam: Present soft and normal bowel sounds; Absent distention, tenderness or guarding Extremities Exam Extremities exam: Present normal inspection, full ROM and normal capillary refill; Absent calf tenderness Back Exam Back exam: Present normal inspection; Absent tenderness Neurological Exam Neurological exam: Present alert (Lethargi
[2022-07-12 10:30] LABS: Basophils # 0.2 K/mm3 (0-0.2); Basophils % 1.6 % (0.1-2.0); Eosinophils % 0.1 % (0.1-12.0); Hemoglobin 12.4 g/dL (12.2-16.2); Lymphocytes # 0.5 K/mm3 (0.7-4.5); Lymphocytes % 4.5 % (10-50); Mean Corpuscular HGB Conc 30.9 g/dL (31.8-35.4); Mean Corpuscular Hemoglobin 29.4 pg (27.0-31.2); Mean Corpuscular Volume 95.1 fl (81-99); Mean Platelet Volume 9.8 fl (7.4-10.4); Monocytes # 0.7 K/mm3 (0.1-1.0); Monocytes % 7.1 % (1.7-9.3); Neutrophils # 8.7 K/mm3 (1.8-7.8); Neutrophils % 86.8 % (37.0-80.0); Platelet Count 188 K/mm3 (142-424); Red Blood Count 4.21 M/mm3 (4.20-5.40); Red Cell Distribution Width 12.4 % (11.5-17.5); White Blood Count 10.1 K/mm3 (4.8-10.8)
[2022-07-12 10:32] LABS: MANUAL DIFFERENTIAL MANUAL DIFFERENTIAL (MANUAL DIFF)
[2022-07-12 10:34] LABS: Alanine Aminotransferase 14 U/L (12-78); Albumin Level 4.1 g/dl (3.5-5.0); Albumin/Globulin Ratio 1.4 (1.1-1.8); Alkaline Phosphatase 56 U/L (38-126); Aspartate Amino Transferase 26 U/L (14-36); Bilirubin,Total 0.3 mg/dl (0.2-1.3); Blood Urea Nitrogen 47 mg/dl (7-17); Calcium 9.1 mg/dl (8.4-10.2); Chloride 90 mmol/L (98-107); Creatinine Clearance Estimated 35 mL/min (50-200); Estimated Glomerular Filt Rate 33 ml/min (>60); GFR (African American) 40 ML/MIN (>60); Glucose 145 mg/dl (74-100); Lactic Acid 0.8 mmol/L (0.7-2.1); Potassium 5.9 mmoL/L (3.5-5.1); Sodium 147 mmol/L (136-145); Total Protein,Serum 7.1 g/dl (6.3-8.2)
[2022-07-12 10:34] LABS: ABG Base Excess 19.2 mmol/L (-2.4-2.3); ABG HCO3 49.3 mmhg (22.0-26.0); ABG Oxygen Saturation 91 % (90-100); ABG PO2 58.7 mmhg (80-100); ABG TCO2 54.5 mmhg (23-27)
[2022-07-12 10:37] LABS: Oxygen 3 %; Source Left Brachial
[2022-07-12 10:38] LABS: D-Dimer 0.44 ug/mL (0.0-0.5)
[2022-07-12 10:39] LABS: ABG PH 7.08 mmol/L (7.35-7.45)
[2022-07-12 10:40] LABS: ABG PCO2 171.6 mmhg (35.0-45.0)
[2022-07-12 10:41] LABS: Anion Gap 5.9 mEq/L (5-15)
[2022-07-12 10:42] LABS: Carbon Dioxide 57 mmol/L (22.0-30.0)
--- NOTE | 2022-07-12 10:43 | PC.NURSE ---
aware of ABG results
--- NOTE | 2022-07-12 10:45 | PC.NURSE ---
1045 RESPIRATORY AT BEDSIDE PLACING PT ON BI-PAP
--- NOTE | 2022-07-12 10:46 | PC.NURSE ---
Respiratory at BS
--- NOTE | 2022-07-12 10:50 | PC.NURSE ---
DR JORDAN SPEAKING WITH DR. MASSEY, HOSPITALIST
[2022-07-12 10:54] LABS: Troponin I < 0.01 ng/ml (0.00-0.034)
--- NOTE | 2022-07-12 11:03 | XR_ITS ---
FINAL REPORT CLINICAL HISTORY: ams FINDINGS: A single view of the chest was obtained. Comparison is made to a prior exam dated December 2021. Cardiac and mediastinal silhouettes are within normal limits. Emphysematous changes are noted. The lungs are clear. There is no pleural effusion or pneumothorax. IMPRESSION: No acute process on this single view exam. Reviewed, Interpreted and Dictated by Jennifer Fry MD Transcribed by Bharat Mcdonald Authenticated and [facility]
[2022-07-12 11:21] LABS: Free Thyroxine Index 2.9 ug/dL (5.93-13.13); Lymphocytes % 5 % (10-50); Monocytes % 9 % (2-9); Neutrophils % 86 % (42-76); Nucleated Red Blood Cells 1; T4 (Thyroxine) 9.2 ug/dl (5.53-11.0); Total Cells Counted 100; Triiodothryronine (T3) Uptake 31 % (23.5-40.5)
[2022-07-12 11:22] LABS: Platelet Estimate Normal; RBC Morphology Normal
--- NOTE | 2022-07-12 11:31 | CT_ITS ---
FINAL REPORT TECHNIQUE: Thin section axial CT images were obtained from the lung apices to the upper abdomen. IV contrast was administered. MIP 3-D reformats were obtained. This study was performed with techniques to keep radiation doses as low as reasonably achievable (ALARA). Individualized dose reduction techniques using automated exposure control or adjustment of mA and/or kV according to the patient's size were employed. CLINICAL HISTORY: soa COMPARISON: November 2021 FINDINGS: Exam is limited secondary to patient condition. The lower chest is not included on the pulmonary embolism CT but was included on the abdomen and pelvis CT and will be reported with that exam. The heart size is normal. There is no suspicious mediastinal or hilar adenopathy. The subsegmental lower lobe pulmonary arteries are not visualized. There is no filling defect to suggest PE. There is no aortic dissection. There is no pericardial effusion. A less than 5 mm left lower lobe pulmonary nodule is likely unchanged. There are changes of emphysema. No pleural effusion identified. IMPRESSION: Lower chest findings are reported on the abdomen and pelvis CT. No pulmonary embolism or aortic dissection within the limitations of this exam. Emphysema and small pulmonary nodule, stable. Reviewed, Interpreted and Dictated by Jennifer Fry MD Transcribed by Bharat Mcdonald Authenticated and [facility]
--- NOTE | 2022-07-12 11:31 | CT_ITS ---
FINAL REPORT TECHNIQUE: Thin section axial images were obtained from skull base to vertex without contrast. Coronal reconstruction images were obtained from the axial data. Exam was performed using dose reduction technique. CLINICAL HISTORY: ams FINDINGS: Motion artifact limits exam quality. There is no mass effect or midline shift. There is no hydrocephalus. There is no intracranial hemorrhage. The posterior fossa is without acute abnormality. The basilar cisterns are preserved. There is a small amount of fluid in left maxillary and left sphenoid sinuses. There is complete opacification the left mastoid air cells. No acute osseous abnormality is identified. IMPRESSION: No acute intracranial abnormality. Consider MRI if clinical concern persists. Sinusitis and left mastoiditis. Reviewed, Interpreted and Dictated by Jennifer Fry MD Transcribed by iMta Hastings Authenticated and [facility]
--- NOTE | 2022-07-12 11:31 | CT_ITS ---
FINAL REPORT TECHNIQUE: Thin section axial images were obtained through the abdomen after intravenous contrast. Reconstruction images were obtained from the axial data. Exam was performed using dose reduction techniques. CLINICAL HISTORY: abd pain COMPARISON: November 2021 FINDINGS: A 5 mm right lower lobe nodule on image 4 may be new. A small left lower lobe nodule was likely present on the prior exam. There is a stable hypodense lesion in the liver dome. The liver is otherwise unremarkable. The gallbladder is absent. The stomach is distended with fluid. There appears to be mild wall thickening of the duodenal bulb. The spleen, adrenal glands, and pancreas are unremarkable. There is no hydronephrosis or solid renal mass. There is no evidence of small-bowel obstruction.. There is no abdominal lymphadenopathy or ascites. There is a Schultz catheter in the urinary bladder. The appendix is not visualized. There is a large amount of stool in the proximal colon. The uterus is absent. There is no pelvic lymphadenopathy or ascites. No acute osseous abnormalities identified. IMPRESSION: Distended stomach with presumed proximal duodenal wall thickening. Duodenitis with gastric outlet obstruction cannot be excluded. Constipation. Reviewed, Interpreted and Dictated by Jennifer Fry MD Transcribed by Bharat Mcdonald Authenticated and . [facility]
[2022-07-12 11:35] LABS: Thyroid Stimulating Hormone 0.27 uIU/mL (0.465-4.68)
--- NOTE | 2022-07-12 11:35 | PC.NURSE ---
Dr. Lin states he wants pt to be admitted to step down, cm aware of admission and status.
[2022-07-12 11:48] LABS: Influenza A, PCR Not Detected (NotDetected); Influenza B, PCR Not Detected (NotDetected)
[2022-07-12 11:50] LABS: Microscopic, Urine URINE MICROSCOPIC (MICROSCOPIC)
[2022-07-12 11:54] LABS: Appearance,Urine CLEAR (Clear); Bilirubin,Urine Negative (Negative); Blood, Urine Negative (Negative); Color,Urine YELLOW (Yellow); Glucose,Urine (UA) Negative (Negative); Ketones,Urine Negative (Negative); Leukocyte Esterase,Urine Negative (Negative); Nitrate,Urine Negative (Negative); PH,Urine 5.5 (5.0-8.5); Protein,Urine Negative (Negative); Specific Gravity, Urine >= 1.030 (1.005-1.030); Urobilinogen,Urine 0.2 EU/dl (0.2)
[2022-07-12 12:04] LABS: ABG Base Excess 18.8 mmol/L (-2.4-2.3); ABG HCO3 47.1 mmhg (22.0-26.0); ABG Oxygen Saturation 98 % (90-100); ABG PO2 106.8 mmhg (80-100); ABG TCO2 50.9 mmhg (23-27)
--- NOTE | 2022-07-12 12:04 | HMH.PHAINT1 ---
Pharmacy Intervention Comments: Medication reconciliation completed utilizing external fill history
[2022-07-12 12:05] LABS: Amphetamine/Metha Screen,Urine Negative ng/ml (<1000)
[2022-07-12 12:06] LABS: Barbiturates Screen,Urine Negative ng/ml (<200)
[2022-07-12 12:07] LABS: Benzodiazepines Screen,Urine Negative ng/ml (<200); Cannabinoid Screen,Urine Negative ng/ml (<50)
[2022-07-12 12:08] LABS: Cocaine Screen,Urine Negative ng/ml (<300)
[2022-07-12 12:09] LABS: Methadone Screen,Urine Negative ng/ml (<300); Opiate Screen,Urine Negative ng/ml (<300)
[2022-07-12 12:10] LABS: Phencyclidine Screen,Urine Negative ng/ml (<25)
[2022-07-12 12:14] LABS: Bacteria,Urine Trace /lpf; Squamous Epithelial Cell,Urine Occasional #/hpf (0-5)
--- NOTE | 2022-07-12 12:16 | EXP.HP ---
History of Present Illness *Admission Date: 07/12/22 *Reason for visit:: Chief complaint: Unresponsive *History of present illness: The patient is a 61-year-old female who presents to [facility] emergency department accompanied by her Sister Faustina Delacruz who provides the history. The patient lives with her sister Faustina. Faustina identifies herself as decision-maker and POA. Faustina reports that she found the patient on the floor this morning and not responding to commands so EMS was called. EMS arrived and identified respiratory failure with verbal ability and opening eyes but not following commands. The patient's past medical history is significant for COPD on home O2 5 L via nasal cannula, chronic benzodiazepine therapy for generalized anxiety disorder, COVID?13 November 2021 and hypertension. Faustina reports that the patient has not experienced any recent chest pain, palpitations, confusion or acute dyspnea. She was in her usual state of health until events identified this morning. She reports that her sister is down to smoking 1 to 2 cigarettes a day. In the ED an ABG identified a pH of 7.08 PCO2 of 171.6 and PO2 59 on room air. Chest imaging and other studies are pending. An echocardiogram from October 2021 identified an EF of 55%. A CTA of the chest from November 2021 identified COPD. Pulmonology and cardiology are due to see the patient. [facility] Medical History (Updated 07/12/22 @ 13:12 by Mary Pierre MD) Chronic hypercapnic respiratory failure Chronically on benzodiazepine therapy COPD (chronic obstructive pulmonary disease) COPD exacerbation COVID-19 virus infection Generalized anxiety disorder GERD (gastroesophageal reflux disease) Hypertension Surgical History (Updated 07/12/22 @ 12:32 by Brian Tracey MD) History of cholecystectomy History of colonoscopy History of esophagogastroduodenoscopy History of hysterectomy Family History (Updated 07/12/22 @ 12:33 by Brian Tracey MD) Mother Cancer Father Pancreatic cancer Social History Smoking Status: Current every day smoker tobacco type: cigarettes packs per day: 0 how long ago did patient quit smokin hours second hand exposure: Yes alcohol intake: never substance use type: denies use current occupational status: disabled Travel in the last 8 weeks: None household members: family housing: house caffeine: Yes Review of Systems Review of Systems Review of systems:: unable to obtain Review of systems (narrative): Encephalopathic presentation Meds Home Medications and Allergies Home Medications Medication Instructions Recorded Confirmed Type tizanidine 4 mg tablet 4 - 8 mg PO QIDP PRN MUSCLE SPASMS 02/18/19 07/12/22 History fexofenadine 180 mg tablet 180 mg PO DAILY Allergy symptoms 10/12/21 07/12/22 History lisinopril 10 mg tablet 10 mg PO DAILY High blood pressure 10/12/21 07/12/22 History sertraline 100 mg tablet 100 mg PO DAILY Depression 10/13/21 07/12/22 History montelukast 10 mg tablet 10 mg PO PM ALLERGIES 12/04/21 07/12/22 History ipratropium 20 mcg-albuterol 100 1 puff inhalation Q4H breathing 04/04/22 07/12/22 History mcg/actuation mist for inhalation problems (Combivent Respimat) clonazepam 0.5 mg tablet (Klonopin) 0.5 mg PO BID Anxiety 07/12/22 07/12/22 History gabapentin 600 mg tablet 600 mg PO QID Pain 07/12/22 07/12/22 History New Prescriptions to Start Prescriptions: Allergies Allergy/AdvReac Type Severity Reaction Status Date / Time acetaminophen Allergy Severe cant breath Verified 06/02/22 15:34 [From Panlor (hydrocodone-acetamin)] hydrocodone Allergy Severe cant breath Verified 06/02/22 15:34 [From Panlor (hydrocodone-acetamin)] Penicillins Allergy Verified 06/02/22 15:34 Exam Data for Last 24 hours Vital signs and Labs for Last 24 Hours: Temp Pulse Resp BP Pulse Ox FiO2
--- NOTE | 2022-07-12 12:20 | PC.NURSE ---
nursing staff at [facility]
--- NOTE | 2022-07-12 13:05 | PC.NURSE ---
report called to Mendy Henderson RN
--- NOTE | 2022-07-12 13:11 | EXP.PULM.CON ---
History of Present Illness History of present illness: Ms. Aviles is a 61-year-old female COPD greater than [id number] smoking on long-term oxygen therapy at 2 L on triple inhaler therapy at home was brought to the hospital by EMS owing to worsening respiratory status and altered mentation. [facility] Disclaimer: The information contained in this section may have been updated after the patient was seen, as this information can be updated by other users. Medical History (Updated 07/12/22 @ 13:12 by Mary Pierre MD) Chronic hypercapnic respiratory failure Chronically on benzodiazepine therapy COPD (chronic obstructive pulmonary disease) COPD exacerbation COVID-19 virus infection Generalized anxiety disorder GERD (gastroesophageal reflux disease) Hypertension Surgical History (Updated 07/12/22 @ 12:32 by Brian Tracey MD) History of cholecystectomy History of colonoscopy History of esophagogastroduodenoscopy History of hysterectomy Family History (Updated 07/12/22 @ 12:33 by Brian Tracey MD) Mother Cancer Father Pancreatic cancer Social History Smoking Status: Current every day smoker tobacco type: cigarettes packs per day: 0 how long ago did patient quit smokin hours second hand exposure: Yes alcohol intake: never substance use type: denies use current occupational status: disabled Travel in the last 8 weeks: None household members: family housing: house caffeine: Yes Review of Systems Review of Systems Review of systems (narrative): Review of systems unable to obtain as patient has been obtunded from hypercarbic respiratory failure Pulmonology Exam Inpatient Vital signs and Labs for Last 24 Hours: Temp Pulse Resp BP Pulse Ox FiO2 95.6 F L 98 H 19 105/69 L 97 30 07/12/22 10:13 07/12/22 13:00 07/12/22 13:00 07/12/22 13:00 07/12/22 13:00 07/12/22 10:57 Laboratory Results - last 24 hr 07/12/22 10:10: WBC 10.1, RBC 4.21, Hgb 12.4, Hct 40.0, MCV 95.1, MCH 29.4, MCHC 30.9 L, RDW 12.4, Plt Count 188, MPV 9.8, Neut % (Auto) 86.8 H, Lymph % (Auto) 4.5 L, [place] % (Auto) 7.1, Eos % (Auto) 0.1, Baso % (Auto) 1.6, Neut # (Auto) 8.7 H, Lymph # (Auto) 0.5 L, [place] # (Auto) 0.7, Eos # (Auto) 0.0, Baso # (Auto) 0.2, Total Counted 100, Neutrophils % (Manual) 86 H, Lymphocytes % (Manual) 5 L, Monocytes % (Manual) 9, Nucleated RBCs 1, Platelet Estimate Normal, RBC Morphology Normal 07/12/22 10:10: D-Dimer 0.44 07/12/22 10:10: Sodium 147 H, Potassium 5.9 H, Chloride 90 L, Carbon Dioxide 57 H*, Anion Gap 5.9, BUN 47 H, Creatinine 1.60 H, Estimated Creat Clear 35, Estimated GFR 33 L, Est GFR ( Amer) 40 L, Glucose 145 H, Calcium 9.1, Total Bilirubin 0.3, AST 26, ALT 14, Alkaline Phosphatase 56, Troponin I < 0.01, Total Protein 7.1, Albumin 4.1, Globulin 3.0, Albumin/Globulin Ratio 1.4 07/12/22 10:10: Lactate 0.8 07/12/22 10:10: TSH 0.27 L, Free T4 Index 2.9 L, Thyroxine (T4) 9.2, T3 Uptake 31 07/12/22 10:10: Urine Color Yellow, Urine Appearance Clear, Urine pH 5.5, Ur Specific [place] >= 1.030, Urine Protein Negative, Urine Glucose (UA) Negative, Urine Ketones Negative, Urine Blood Negative, Urine Nitrate Negative, Urine Bilirubin Negative, Urine Urobilinogen 0.2, Ur Leukocyte Esterase Negative, Urine RBC None, Urine WBC None, Ur Squamous Epith Cells Occasional, Urine Bacteria Trace 07/12/22 10:10: Urine Opiates Screen Negative, Urine Methadone Screen Negative, Ur Barbituates Screen Negative, Ur Phencyclidine Scrn Negative, Ur Amphetamines Screen Negative, U Benzodiazepines Scrn Negative, Urine Cocaine Screen Negative, U Marijuana (THC) Screen Negative 07/12/22 10:12: Specimen Source Left brachial, O2 % 3, ABG pH 7.08 L*, ABG pCO2 171.6 H, ABG pO2 58.7 L, ABG HCO3 49.3 H, ABG Total CO2 54.5 H, ABG O2 Saturation 91, ABG Base Excess 19.2 H, Jay Test n/a I & O for Labs for Last 24 Hours: Intake & Output 07/09/22 07/10/22
[2022-07-12 13:17] LABS: Coronavirus 19, PCR Detected (NotDetected)
[2022-07-12 13:29] LABS: Ammonia 29 umol/L (9-30)
--- NOTE | 2022-07-12 13:35 | PC.NURSE ---
Dr. Spicer at
[2022-07-12 13:39] LABS: NT Pro Brain Natriuretic Pep. 534 pg/mL (0-125)
[2022-07-12 13:47] LABS: Troponin I < 0.01 ng/ml (0.00-0.034)
--- NOTE | 2022-07-12 13:50 | PC.NURSE ---
unable to access artline per pamela
--- NOTE | 2022-07-12 14:13 | PC.NURSE ---
floor nurse Mima, andrew and respiratory at to transport pt to floor bed
--- NOTE | 2022-07-12 14:18 | PC.NURSE ---
patient arrived by stretcher from ED
--- NOTE | 2022-07-12 14:20 | EXP.EVENT.NO ---
Nursing staff report that her COVID-19 PCR came back positive. She will be placed in contact and droplet precautions. Her oxygen requirements and hypercapnia are related to her chronic COPD. A CTA of the chest identified no acute infiltrates or groundglass opacities. We will continue with oxygen support and IV Solu-Medrol. We will continue to trend labs and inflammatory markers.
[2022-07-12 14:34] LABS: Oxygen 50 %; Pressure Support BIPAP 22/8; Source Left Brachial; Vent Rate 26
[2022-07-12 14:35] LABS: ABG PCO2 126.6 mmhg (35.0-45.0); ABG PH 7.19 mmol/L (7.35-7.45)
[2022-07-12 16:40] LABS: ABG Base Excess 6.7 mmol/L (-2.4-2.3); ABG HCO3 33.8 mmhg (22.0-26.0); ABG Oxygen Saturation 96 % (90-100); ABG PH 7.25 mmol/L (7.35-7.45); ABG PO2 83.6 mmhg (80-100); ABG TCO2 36.2 mmhg (23-27)
[2022-07-12 16:44] LABS: Oxygen 40 %
[2022-07-12 16:45] LABS: ABG PCO2 78.4 mmhg (35.0-45.0); Allen's Test Acceptable; Source Left Radial; Vent Rate 26
--- NOTE | 2022-07-12 17:12 | PC.NURSE ---
RESP CARE NOTE NOTIFIED ABG RESULTS TO DR FRITZ @ 0020 RECIEVED NEW ORDERS OF STOP Q6 DUO AND START XOPENEX 1.25 Q2H. OBTAIN ABG @ 2979.
--- NOTE | 2022-07-12 17:59 | PC.NURSE ---
pt not cooperative nor a good historian, admission completed as able.
[2022-07-12 18:07] LABS: Blood Urea Nitrogen 38 mg/dl (7-17); Calcium 8.6 mg/dl (8.4-10.2); Chloride 101 mmol/L (98-107); Creatinine Clearance Estimated 61 mL/min (50-200); Estimated Glomerular Filt Rate 64 ml/min (>60); GFR (African American) 77 ML/MIN (>60); Glucose 162 mg/dl (74-100); Potassium 5.2 mmoL/L (3.5-5.1); Sodium 146 mmol/L (136-145)
[2022-07-12 18:21] LABS: Troponin I < 0.01 ng/ml (0.00-0.034)
--- NOTE | 2022-07-12 18:38 | PC.NURSE ---
notified Dr fulton via phone at 1828 that pt hr has been in the 130's for approx 15 min following admin of pulmicort neb. pt is slightly restless in bed. lung ann are still diminished and unchanged from previous assessment at this time. pt bp is 118/86. new order is for 5mg metoprolol iv times 1 dose now. medication verified with sammy tavares prior to admin as it is not in the comp at this time.
[2022-07-12 18:43] LABS: Anion Gap 9.2 mEq/L (5-15); Carbon Dioxide 41 mmol/L (22.0-30.0)
[2022-07-12 20:41] LABS: POC Glucose,Bedside 242 (70-110)
[2022-07-12 21:42] LABS: ABG Base Excess 13.6 mmol/L (-2.4-2.3); ABG HCO3 40.2 mmhg (22.0-26.0); ABG Oxygen Saturation 98 % (90-100); ABG PH 7.29 mmol/L (7.35-7.45); ABG PO2 91.7 mmhg (80-100); ABG TCO2 42.8 mmhg (23-27)
[2022-07-12 22:23] LABS: Allen's Test Acceptable; Oxygen 40 %; Source Left Radial; Vent Rate 26
[2022-07-12 22:25] LABS: ABG PCO2 85.1 mmhg (35.0-45.0)
--- NOTE | 2022-07-12 23:37 | PC.NURSE ---
RESP CARE REPORTED ABG TO DR FRITZ GIVEN ORDERS @8167 OF CONTINUE SAME BIPAP SETTINGS AND XOPENEX Q2 AND START IPRATROPIUM Q4 HOURS. OBTAIN ABG 07/13 @7400
[2022-07-13] VITALS (22 sets, daily range): BP systolic 128–156; BP diastolic 69–97; PULSE 79–120; RESP 18–27; TEMP 36.6–37.4; O2SAT 90–100; BMI 21.7
--- NOTE | 2022-07-13 00:26 | PC.NURSE ---
5mg Metoprol IVP for HR 130
[2022-07-13 03:14] LABS: POC Glucose,Bedside 150 (70-110)
[2022-07-13 06:19] LABS: Basophils # 0.1 K/mm3 (0-0.2); Basophils % 1.2 % (0.1-2.0); Eosinophils % 0.2 % (0.1-12.0); Hematocrit 33.9 % (37.0-47.0); Lymphocytes % 10.6 % (10-50); Mean Corpuscular HGB Conc 32.7 g/dL (31.8-35.4); Mean Corpuscular Volume 94.8 fl (81-99); Monocytes # 0.4 K/mm3 (0.1-1.0); Monocytes % 4.7 % (1.7-9.3); Neutrophils # 7.6 K/mm3 (1.8-7.8); Neutrophils % 83.3 % (37.0-80.0); Platelet Count 127 K/mm3 (142-424); Red Blood Count 3.57 M/mm3 (4.20-5.40); Red Cell Distribution Width 12.7 % (11.5-17.5); White Blood Count 9.1 K/mm3 (4.8-10.8)
[2022-07-13 07:03] LABS: Magnesium 2.3 mg/dl (1.6-2.3)
[2022-07-13 07:26] LABS: Procalcitonin 0.128 ng/mL (0.0-2.0)
[2022-07-13 07:34] LABS: Chloride 106 mmol/L (98-107); Potassium 4.8 mmoL/L (3.5-5.1); Sodium 147 mmol/L (136-145)
[2022-07-13 07:37] LABS: Anion Gap 9.8 mEq/L (5-15); Blood Urea Nitrogen 34 mg/dl (7-17); Calcium 8.6 mg/dl (8.4-10.2); Carbon Dioxide 36 mmol/L (22.0-30.0); Creatinine Clearance Estimated 112 mL/min (50-200); Estimated Glomerular Filt Rate 126 ml/min (>60); GFR (African American) 152 ML/MIN (>60); Glucose 140 mg/dl (74-100)
[2022-07-13 07:42] LABS: ABG HCO3 37.3 mmhg (22.0-26.0); ABG Oxygen Saturation 98 % (90-100); ABG PH 7.36 mmol/L (7.35-7.45); ABG PO2 115.4 mmhg (80-100); ABG TCO2 39.4 mmhg (23-27)
[2022-07-13 07:46] LABS: Alanine Aminotransferase 17 U/L (12-78); Albumin Level 3.5 g/dl (3.5-5.0); Albumin/Globulin Ratio 1.6 (1.1-1.8); Alkaline Phosphatase 46 U/L (38-126); Aspartate Amino Transferase 37 U/L (14-36); Bilirubin,Total 0.3 mg/dl (0.2-1.3); Globulin 2.2 g/dL (1.3-3.2); Total Protein,Serum 5.7 g/dl (6.3-8.2)
[2022-07-13 07:46] LABS: Allen's Test ACCEPTABLE; Oxygen 40% %; Source L RADIAL; Tidal Volume 22/8
[2022-07-13 08:25] LABS: POC Glucose,Bedside 144 (70-110)
--- NOTE | 2022-07-13 09:33 | EXP.PULM.PN ---
Subjective *Date: 07/13/22 *Time: 10:32 Interval history: No acute respiratory vents. Patient more awake and alert this morning. Denies any new respiratory complaints. Pulmonology Exam Inpatient Vital signs and Labs for Last 24 Hours: Temp Pulse Resp BP Pulse Ox FiO2 99.4 F 116 H 20 154/89 H 100 40 07/13/22 07:28 07/13/22 08:00 07/13/22 08:00 07/13/22 08:00 07/13/22 08:00 07/13/22 08:00 Laboratory Results - last 24 hr 07/12/22 10:10: WBC 10.1, RBC 4.21, Hgb 12.4, Hct 40.0, MCV 95.1, MCH 29.4, MCHC 30.9 L, RDW 12.4, Plt Count 188, MPV 9.8, Neut % (Auto) 86.8 H, Lymph % (Auto) 4.5 L, [place] % (Auto) 7.1, Eos % (Auto) 0.1, Baso % (Auto) 1.6, Neut # (Auto) 8.7 H, Lymph # (Auto) 0.5 L, [place] # (Auto) 0.7, Eos # (Auto) 0.0, Baso # (Auto) 0.2, Total Counted 100, Neutrophils % (Manual) 86 H, Lymphocytes % (Manual) 5 L, Monocytes % (Manual) 9, Nucleated RBCs 1, Platelet Estimate Normal, RBC Morphology Normal 07/12/22 10:10: D-Dimer 0.44 07/12/22 10:10: Sodium 147 H, Potassium 5.9 H, Chloride 90 L, Carbon Dioxide 57 H*, Anion Gap 5.9, BUN 47 H, Creatinine 1.60 H, Estimated Creat Clear 35, Estimated GFR 33 L, Est GFR ( Amer) 40 L, Glucose 145 H, Calcium 9.1, Total Bilirubin 0.3, AST 26, ALT 14, Alkaline Phosphatase 56, Troponin I < 0.01, Total Protein 7.1, Albumin 4.1, Globulin 3.0, Albumin/Globulin Ratio 1.4 07/12/22 10:10: Lactate 0.8 07/12/22 10:10: TSH 0.27 L, Free T4 Index 2.9 L, Thyroxine (T4) 9.2, T3 Uptake 31 07/12/22 10:10: Urine Color Yellow, Urine Appearance Clear, Urine pH 5.5, Ur Specific [place] >= 1.030, Urine Protein Negative, Urine Glucose (UA) Negative, Urine Ketones Negative, Urine Blood Negative, Urine Nitrate Negative, Urine Bilirubin Negative, Urine Urobilinogen 0.2, Ur Leukocyte Esterase Negative, Urine RBC None, Urine WBC None, Ur Squamous Epith Cells Occasional, Urine Bacteria Trace 07/12/22 10:10: Urine Opiates Screen Negative, Urine Methadone Screen Negative, Ur Barbituates Screen Negative, Ur Phencyclidine Scrn Negative, Ur Amphetamines Screen Negative, U Benzodiazepines Scrn Negative, Urine Cocaine Screen Negative, U Marijuana (THC) Screen Negative 07/12/22 10:10: SARS-CoV-2 (PCR) Detected A, Influenza A Untype (PCR) Not detected, Influenza Type B (PCR) Not detected 07/12/22 10:12: Specimen Source Left brachial, O2 % 3, ABG pH 7.08 L*, ABG pCO2 171.6 H, ABG pO2 58.7 L, ABG HCO3 49.3 H, ABG Total CO2 54.5 H, ABG O2 Saturation 91, ABG Base Excess 19.2 H, Jay Test n/a 07/12/22 12:00: Specimen Source Left brachial, O2 % 50, ABG pH 7.19 L*, ABG pCO2 126.6 H, ABG pO2 106.8 H, ABG HCO3 47.1 H, ABG Total CO2 50.9 H, ABG O2 Saturation 98, ABG Base Excess 18.8 H, Jay Test N/a, Vent Rate 07/12/22 13:00: Troponin I < 0.01 07/12/22 13:00: NT-Pro-B Natriuret Pep 534 H 07/12/22 13:00: Specimen Source Left radial, O2 % 40, ABG pH 7.25 L, ABG pCO2 78.4 H, ABG pO2 83.6, ABG HCO3 33.8 H, ABG Total CO2 36.2 H, ABG O2 Saturation 96, ABG Base Excess 6.7 H, Jay Test Acceptable, Vent Rate 07/12/22 13:00: Ammonia 29 07/12/22 17:40: Troponin I < 0.01 07/12/22 17:40: Sodium 146 H, Potassium 5.2 H, Chloride 101, Carbon Dioxide 41 H*, Anion Gap 9.2, BUN 38 H, Creatinine 0.90 D, Estimated Creat Clear 61, Estimated GFR 64, Est GFR ( Amer) 77 D, Glucose 162 H, Calcium 8.6 07/12/22 20:31: POC Glucose 242 H 07/12/22 21:00: Specimen Source Left radial, O2 % 40, ABG pH 7.29 L, ABG pCO2 85.1 H, ABG pO2 91.7, ABG HCO3 40.2 H, ABG Total CO2 42.8 H, ABG O2 Saturation 98, ABG Base Excess 13.6 H, Jay Test Acceptable, Vent Rate 26 07/13/22 03:06: POC Glucose 150 H 07/13/22 05:44: WBC 9.1, RBC 3.57 L, Hgb 11.0 L D, Hct 33.9 L, MCV 94.8, MCH 31.0, MCHC 32.7, RDW 12.7, Plt Count 127 L D, MPV 10.0, Neut % (Auto) 83.3 H, Lymph % (Auto) 10.6, [place] % (Auto) 4.7, Eos % (Auto) 0.2, Baso % (Auto) 1.2, Neut # (Auto) 7.6, Lymph # (Auto) 1.0, [place] # (Auto) 0.4, Eos # (Auto) 0.0, Baso # (Auto) 0.1 07/13/22 05:44: Magnesium 2.3, Procalcitonin 0.128 07/13/22 05:44: Sod
--- NOTE | 2022-07-13 10:16 | EXP.PN ---
Subjective *Date: 07/13/22 *Time: 11:05 Interval history: Date of service July 13, 2022 The patient reports no acute events overnight. She reports compliance with her BiPAP therapy. Nursing staff report that she remains afebrile with increased heart rates and saturating appropriately on her current BiPAP settings with FiO2 40%. We have reviewed and discussed her lab results. I personally interpreted her labs as follows: CBC with a normal white blood cell count 9.1, hemoglobin of 11, platelets 127 and a left shift. Her D-dimer is negative. Her electrolytes identify normal sodium potassium with an increased CO2 of 36. Her BUN is 34 and her creatinine is 0.5 which is improved from admission. Her glucose trend is under 175 on her current steroid therapy. Her procalcitonin is negative. Her morning blood gas identifies a corrected pH of 7.36 and improved PCO2 of 67 and a PO2 of 115. Cardiology and pulmonology continues to follow. Exam Data for Last 24 hours Vital signs and Labs for Last 24 Hours: Temp Pulse Resp BP Pulse Ox FiO2 99.4 F 116 H 20 154/89 H 100 40 07/13/22 07:28 07/13/22 08:00 07/13/22 08:00 07/13/22 08:00 07/13/22 08:00 07/13/22 08:00 Laboratory Results - last 24 hr 07/12/22 10:10: WBC 10.1, RBC 4.21, Hgb 12.4, Hct 40.0, MCV 95.1, MCH 29.4, MCHC 30.9 L, RDW 12.4, Plt Count 188, MPV 9.8, Neut % (Auto) 86.8 H, Lymph % (Auto) 4.5 L, [place] % (Auto) 7.1, Eos % (Auto) 0.1, Baso % (Auto) 1.6, Neut # (Auto) 8.7 H, Lymph # (Auto) 0.5 L, [place] # (Auto) 0.7, Eos # (Auto) 0.0, Baso # (Auto) 0.2, Total Counted 100, Neutrophils % (Manual) 86 H, Lymphocytes % (Manual) 5 L, Monocytes % (Manual) 9, Nucleated RBCs 1, Platelet Estimate Normal, RBC Morphology Normal 07/12/22 10:10: D-Dimer 0.44 07/12/22 10:10: Sodium 147 H, Potassium 5.9 H, Chloride 90 L, Carbon Dioxide 57 H*, Anion Gap 5.9, BUN 47 H, Creatinine 1.60 H, Estimated Creat Clear 35, Estimated GFR 33 L, Est GFR ( Amer) 40 L, Glucose 145 H, Calcium 9.1, Total Bilirubin 0.3, AST 26, ALT 14, Alkaline Phosphatase 56, Troponin I < 0.01, Total Protein 7.1, Albumin 4.1, Globulin 3.0, Albumin/Globulin Ratio 1.4 07/12/22 10:10: Lactate 0.8 07/12/22 10:10: TSH 0.27 L, Free T4 Index 2.9 L, Thyroxine (T4) 9.2, T3 Uptake 31 07/12/22 10:10: Urine Color Yellow, Urine Appearance Clear, Urine pH 5.5, Ur Specific [place] >= 1.030, Urine Protein Negative, Urine Glucose (UA) Negative, Urine Ketones Negative, Urine Blood Negative, Urine Nitrate Negative, Urine Bilirubin Negative, Urine Urobilinogen 0.2, Ur Leukocyte Esterase Negative, Urine RBC None, Urine WBC None, Ur Squamous Epith Cells Occasional, Urine Bacteria Trace 07/12/22 10:10: Urine Opiates Screen Negative, Urine Methadone Screen Negative, Ur Barbituates Screen Negative, Ur Phencyclidine Scrn Negative, Ur Amphetamines Screen Negative, U Benzodiazepines Scrn Negative, Urine Cocaine Screen Negative, U Marijuana (THC) Screen Negative 07/12/22 10:10: SARS-CoV-2 (PCR) Detected A, Influenza A Untype (PCR) Not detected, Influenza Type B (PCR) Not detected 07/12/22 10:12: Specimen Source Left brachial, O2 % 3, ABG pH 7.08 L*, ABG pCO2 171.6 H, ABG pO2 58.7 L, ABG HCO3 49.3 H, ABG Total CO2 54.5 H, ABG O2 Saturation 91, ABG Base Excess 19.2 H, Jay Test n/a 07/12/22 12:00: Specimen Source Left brachial, O2 % 50, ABG pH 7.19 L*, ABG pCO2 126.6 H, ABG pO2 106.8 H, ABG HCO3 47.1 H, ABG Total CO2 50.9 H, ABG O2 Saturation 98, ABG Base Excess 18.8 H, Jay Test N/a, Vent Rate 07/12/22 13:00: Troponin I < 0.01 07/12/22 13:00: NT-Pro-B Natriuret Pep 534 H 07/12/22 13:00: Specimen Source Left radial, O2 % 40, ABG pH 7.25 L, ABG pCO2 78.4 H, ABG pO2 83.6, ABG HCO3 33.8 H, ABG Total CO2 36.2 H, ABG O2 Saturation 96, ABG Base Excess 6.7 H, Jay Test Acceptable, Vent Rate 07/12/22 13:00: Ammonia 29 07/12/22 17:40: Troponin I < 0.01 07/12/22 17:40: Sodium 146 H, Potassium 5.2 H, Chloride 101, Carbon Dioxide 41 H*, Anion Gap 9.2, BUN 38 H, Creatinine 0.90 D,
--- NOTE | 2022-07-13 10:35 | EXP.CARD.CON ---
History of Present Illness History of Present Illness Consult date: 07/13/22 Requesting physician: Brian Tracey Chief complaint: Unresponsive Additional Medical History:: Significant past medical hx: Chronic hypercapnic respiratory failure-requires home oxygen at 5 L via nasal cannula Chronically on benzodiazepine therapy COPD Anxiety GERD Hypertension History of present illness: History of present illness obtained from primary service note given patient's mental status and no family at bedside: The patient is a 61-year-old female who presents to [facility] emergency department accompanied by her Sister Faustina Delacruz who provides the history.? The patient lives with her sister Faustina.? Faustina identifies herself as decision-maker and POA.? Faustina reports that she found the patient on the floor this morning and not responding to commands so EMS was called.? EMS arrived and identified respiratory failure with verbal ability and opening eyes but not following commands.? The patient's past medical history is significant for COPD on home O2 5 L via nasal cannula, chronic benzodiazepine therapy for generalized anxiety disorder, COVID?13 November 2021 and hypertension.? Faustina reports that the patient has not experienced any recent chest pain, palpitations, confusion or acute dyspnea.? She was in her usual state of health until events identified this morning.? She reports that her sister is down to smoking 1 to 2 cigarettes a day.? In the ED an ABG identified a pH of 7.08?PCO2 of 171.6?and PO2 59 on room air.? Chest imaging and other studies are pending.? An echocardiogram from October 2021 identified an EF of 55%.? A CTA of the chest from November 2021 identified COPD.? Pulmonology and cardiology are due to see the patient. CT head 07/12/2022 was negative for acute intracranial abnormality CTA chest 07/12/2022 negative for acute process. Emphysema and small pulmonary nodules noted CT abdomen pelvis 07/12/2022-distended stomach with presumed proximal duodenal wall thickening. Duodenitis with gastric outlet obstruction cannot be excluded. Constipation Covid-19 PCR positive PFSH PFSH Disclaimer: The information contained in this section may have been updated after the patient was seen, as this information can be updated by other users. Medical History (Updated 07/13/22 @ 09:34 by Mary Pierre MD) Chronic hypercapnic respiratory failure Chronically on benzodiazepine therapy COPD (chronic obstructive pulmonary disease) COPD exacerbation COVID-19 COVID-19 virus infection Generalized anxiety disorder GERD (gastroesophageal reflux disease) Hypertension Surgical History History of cholecystectomy History of colonoscopy History of esophagogastroduodenoscopy History of hysterectomy Family History Mother Cancer Father Pancreatic cancer Social History (Updated 07/12/22 @ 18:13 by Mendy Henderson RN) Smoking Status: Current every day smoker tobacco type: cigarettes packs per day: 0 how long ago did patient quit smokin hours second hand exposure: Yes alcohol intake: never substance use type: denies use current occupational status: disabled Travel in the last 8 weeks: None household members: family housing: house number of children: 1 caffeine: Yes Review of Systems Review of Systems Review of systems:: unable to obtain (due to mental status) Exam Data for Last 24 hours Vital signs and Labs for Last 24 Hours: Temp Pulse Resp BP Pulse Ox FiO2 99.4 F 116 H 20 154/89 H 100 40 07/13/22 07:28 07/13/22 08:00 07/13/22 08:00 07/13/22 08:00 07/13/22 08:00 07/13/22 08:00 Laboratory Results - last 24 hr 07/12/22 10:10: Total Counted 100, Neutrophils % (Manual) 86 H, Lymphocytes % (Manual) 5 L, Monocytes % (Manual) 9, Nucleated RBCs 1, Platelet Estimate Nor
[2022-07-13 12:06] LABS: POC Glucose,Bedside 167 (70-110)
--- NOTE | 2022-07-13 16:15 | EXP.EVENT.NO ---
The patient has a diagnoses of COPD and respiratory failure. Her ABG identified a PCO2 of 172 mmHg in the ED with a downward trend to 67 mmHg on her last blood gas (07/13/2022). She was hospitalized for respiratory failure, CO2 retention and metabolic encephalopathy. The patient needs volume ventilation to treat her acute on chronic respiratory failure. Patient would benefit from trilogy noninvasive ventilation device as she needs volume ventilation to treat respiratory failure and I do not believe she will tolerate higher pressures of BiPAP nor will they treat her adequately.
[2022-07-13 17:07] LABS: POC Glucose,Bedside 143 (70-110)
--- NOTE | 2022-07-13 18:20 | PC.NURSE ---
pt up to chair t/o shift, has remained on 1L NC t/o shift with O2 sats 90-93%, no complaints of SOA, has been tachy at times, pastor removed this shift, has been incontinent of bladder this shift
[2022-07-13 20:43] LABS: POC Glucose,Bedside 163 (70-110)
[2022-07-14] VITALS (18 sets, daily range): BP systolic 139–166; BP diastolic 82–102; PULSE 70–113; RESP 16–27; TEMP 36.2–37.2; O2SAT 83–98; BMI 22.1; BMI 22.0
[2022-07-14 05:52] LABS: POC Glucose,Bedside 214 (70-110)
--- NOTE | 2022-07-14 06:23 | PC.NURSE ---
NO ACUTE CHANGES SINCE PREVIOUS ASSESSMENT. PT RESTED WELL. TOLERATED BIPAP WHILE SLEEPING WELL. PT BP HAS SLOWLY INCREASED OVER NIGHT SBP IN THE 150'S DBP IN THE 90-100'S. PT HAS C/O LOWER ABDOMINAL PAIN X1 THIS SHIFT INSURANCE CLAIMS ANALYST NOTIFIED. AND STATED SHE WOULD LOOK AT PT LABS AND PUT IN ORDERS. CALL MELLO WITHIN REACH. BED ALARM IN PLACE.
[2022-07-14 06:33] LABS: Chloride 106 mmol/L (98-107); Potassium 3.6 mmoL/L (3.5-5.1); Sodium 147 mmol/L (136-145)
[2022-07-14 06:36] LABS: Alanine Aminotransferase 18 U/L (12-78); Albumin Level 3.3 g/dl (3.5-5.0); Albumin/Globulin Ratio 1.4 (1.1-1.8); Alkaline Phosphatase 41 U/L (38-126); Aspartate Amino Transferase 29 U/L (14-36); Bilirubin,Total 0.2 mg/dl (0.2-1.3); Blood Urea Nitrogen 33 mg/dl (7-17); Calcium 8.3 mg/dl (8.4-10.2); Creatinine Clearance Estimated 114 mL/min (50-200); Estimated Glomerular Filt Rate 126 ml/min (>60); GFR (African American) 152 ML/MIN (>60); Globulin 2.4 g/dL (1.3-3.2); Glucose 200 mg/dl (74-100); Total Protein,Serum 5.7 g/dl (6.3-8.2)
[2022-07-14 06:43] LABS: Anion Gap 6.6 mEq/L (5-15); Carbon Dioxide 38 mmol/L (22.0-30.0)
[2022-07-14 06:45] LABS: Basophils % 0.2 % (0.1-2.0); Hematocrit 32.2 % (37.0-47.0); Hemoglobin 10.1 g/dL (12.2-16.2); Lymphocytes # 1.6 K/mm3 (0.7-4.5); Lymphocytes % 19.2 % (10-50); Mean Corpuscular HGB Conc 31.4 g/dL (31.8-35.4); Mean Corpuscular Hemoglobin 30.1 pg (27.0-31.2); Mean Corpuscular Volume 95.8 fl (81-99); Mean Platelet Volume 10.1 fl (7.4-10.4); Monocytes # 0.7 K/mm3 (0.1-1.0); Monocytes % 8.4 % (1.7-9.3); Neutrophils # 6.1 K/mm3 (1.8-7.8); Neutrophils % 72.1 % (37.0-80.0); Platelet Count 165 K/mm3 (142-424); Red Blood Count 3.37 M/mm3 (4.20-5.40); White Blood Count 8.5 K/mm3 (4.8-10.8)
--- NOTE | 2022-07-14 09:29 | EXP.CARD.PN ---
Subjective Subjective Date: 07/14/22 Time: 08:00 Principal diagnosis: Acute on chronic hypoxic respiratory failure, COPD exacerbation Interval history: Patient doing better this morning Patient is alert and responds to questions appropriately. Oxygen saturation greater than 95% on 2 L via nasal cannula. Blood pressure and pulse remain high. A.m. labs reviewed. Exam Data for Last 24 hours Vital signs and Labs for Last 24 Hours: Temp Pulse Resp BP Pulse Ox FiO2 99.0 F 112 H 20 153/84 H 98 30 07/14/22 08:00 07/14/22 08:00 07/14/22 08:00 07/14/22 08:00 07/14/22 08:00 07/14/22 01:45 Laboratory Results - last 24 hr 07/13/22 12:00: POC Glucose 167 H 07/13/22 17:00: POC Glucose 143 H 07/13/22 20:32: POC Glucose 163 H 07/14/22 05:42: POC Glucose 214 H 07/14/22 05:57: WBC 8.5, RBC 3.37 L, Hgb 10.1 L, Hct 32.2 L, MCV 95.8, MCH 30.1, MCHC 31.4 L, RDW 13.0, Plt Count 165 D, MPV 10.1, Neut % (Auto) 72.1, Lymph % (Auto) 19.2, [place] % (Auto) 8.4, Eos % (Auto) 0.0 L, Baso % (Auto) 0.2, Neut # (Auto) 6.1, Lymph # (Auto) 1.6, [place] # (Auto) 0.7, Eos # (Auto) 0.0, Baso # (Auto) 0.0 07/14/22 05:57: Sodium 147 H, Potassium 3.6 D, Chloride 106, Carbon Dioxide 38 H, Anion Gap 6.6, BUN 33 H, Creatinine 0.50 L, Estimated Creat Clear 114, Estimated GFR 126, Est GFR ( Amer) 152, Glucose 200 H, Calcium 8.3 L, Total Bilirubin 0.2, AST 29, ALT 18, Alkaline Phosphatase 41, Total Protein 5.7 L, Albumin 3.3 L, Globulin 2.4, Albumin/Globulin Ratio 1.4 I & O for Last 24 hours: Intake & Output 07/11/22 07/12/22 07/13/22 02/17/23 23:59 23:59 23:59 23:59 Intake Total 250 / 250 2729 / 2729 1117 / 1117 Output Total 1100 / 1100 850 / 850 400 / 400 Balance -850 / -850 1879 / 1879 717 / 717 Weight 128 lb 9 oz 130 lb 4.691 oz 132 lb 9.6 oz Constitutional Constitutional: mild distress, thin and chronically ill appearing *Routine Respiratory Exam Respiratory: Present wheezes and diminished air movement Comments: Lung sounds improved from yesterday *Routine Cardiovascular Exam Cardiovascular: Present Normal S1, Normal S2 and tachycardia *Routine Extremities Exam Extremities: Present pulses intact; Absent cyanosis or edema Progress Note: A&P Assessment and plan (1) Acute on chronic respiratory failure with hypoxia and hypercapnia: Status: Acute (2) Acute heart failure with preserved ejection fraction: Status: Acute (3) Encephalopathy acute: Status: Acute (4) Acute kidney injury: Status: Acute (5) Chronically on benzodiazepine therapy: Status: Acute Assessment and Plan Assessment and Plan for All Diagnoses:: Acute on chronic hypoxic/hypercapnia respiratory failure -multifactorial in nature combination of chronic respiratory failure, COPD, COVID-19 positive, aspiration pneumonia -Chest x-ray and CTA chest negative for effusions or pulmonary edema -Overt signs of volume overload noted -Pulmonary following 07/14/2022: Oxygen saturation remaining greater than 95% on 2 L nasal cannula. HFpEF -Echo 10/2021-EF 55% with no regional wall motion abnormality, Doppler evidence of impaired LV relaxation, trace mitral tricuspid regurg, no significant pericardial effusion -Lisinopril 10 mg daily. Add Jardiance 10 mg p.o. Consider addition of aldactone later. Acute encephalopathy -CT head negative for acute process. -PCO2-172, improving -ammonia level 29 Acute kidney injury -Resolving-monitor Hypertension -Continue Lisinopril 10mg po daily 07/14/2022: Blood pressure remains elevated. Increase lisinopril to 20 mg daily CV summary 07/14/2022: Blood pressure remains elevated, please increase lisinopril to 20 mg p.o. daily. Continue meds as listed above. Have patient follow-up in office in 1 to 2 weeks post discharge for further evaluation.
--- NOTE | 2022-07-14 09:32 | EXP.PULM.PN ---
Subjective *Date: 07/14/22 *Time: 10:19 Interval history: No acute respiratory events overnight. Patient admits continued improvement in symptoms Pulmonology Exam Inpatient Vital signs and Labs for Last 24 Hours: Temp Pulse Resp BP Pulse Ox FiO2 99.0 F 112 H 20 153/84 H 98 30 07/14/22 08:00 07/14/22 08:00 07/14/22 08:00 07/14/22 08:00 07/14/22 08:00 07/14/22 01:45 Laboratory Results - last 24 hr 07/13/22 12:00: POC Glucose 167 H 07/13/22 17:00: POC Glucose 143 H 07/13/22 20:32: POC Glucose 163 H 07/14/22 05:42: POC Glucose 214 H 07/14/22 05:57: WBC 8.5, RBC 3.37 L, Hgb 10.1 L, Hct 32.2 L, MCV 95.8, MCH 30.1, MCHC 31.4 L, RDW 13.0, Plt Count 165 D, MPV 10.1, Neut % (Auto) 72.1, Lymph % (Auto) 19.2, [place] % (Auto) 8.4, Eos % (Auto) 0.0 L, Baso % (Auto) 0.2, Neut # (Auto) 6.1, Lymph # (Auto) 1.6, [place] # (Auto) 0.7, Eos # (Auto) 0.0, Baso # (Auto) 0.0 07/14/22 05:57: Sodium 147 H, Potassium 3.6 D, Chloride 106, Carbon Dioxide 38 H, Anion Gap 6.6, BUN 33 H, Creatinine 0.50 L, Estimated Creat Clear 114, Estimated GFR 126, Est GFR ( Amer) 152, Glucose 200 H, Calcium 8.3 L, Total Bilirubin 0.2, AST 29, ALT 18, Alkaline Phosphatase 41, Total Protein 5.7 L, Albumin 3.3 L, Globulin 2.4, Albumin/Globulin Ratio 1.4 I & O for Labs for Last 24 Hours: Intake & Output 07/11/22 07/12/22 07/13/22 07/14/22 23:59 23:59 23:59 23:59 Intake Total 250 / 250 2729 / 2729 1117 / 1117 Output Total 1100 / 1100 850 / 850 400 / 400 Balance -850 / -850 1879 / 1879 717 / 717 Weight 128 lb 9 oz 130 lb 4.691 oz 132 lb 9.6 oz Constitutional: Present moderate distress Head: Present normocephalic and atraumatic ENT: Present normal exam, normal oropharynx and mucous membranes moist Neck: Present normal inspection and full ROM Respiratory: Present respiratory distress and wheezes; Absent accessory muscle use, patient mechanically ventilated, diminished air movement or able to speak in complete sentences Cardiac: Present S1/S2, Tachycardia and radial pulses present GI: Present soft and distention; Absent tenderness or guarding Rectal (female): Present deferred (female): Present deferred Skin: Present intact; Absent cyanosis or jaundice Neuro: Present alert and awake; Absent oriented x 3 Extremities: Present normal inspection; Absent clubbing or cyanosis Psychiatric: Present normal affect and cooperative Assessment and Plan *Assessment and plan (1) Acute on chronic respiratory failure with hypoxia and hypercapnia: Status: Acute Category: Medical Code(s): J96.21 - Acute and chronic respiratory failure with hypoxia; J96.22 - Acute and chronic respiratory failure with hypercapnia (2) COPD exacerbation: Status: Acute Category: Medical Code(s): J44.1 - Chronic obstructive pulmonary disease with (acute) exacerbation (3) COVID-19: Status: Acute Category: Medical Code(s): U07.1 - COVID-19 Plan #Acute on chronic hypoxic hypercarbic respiratory failure: #COPD exacerbation: #COVID-19 pneumonia: Ms. Aviles is a 61-year-old female COPD greater than [id number] smoking on long-term oxygen therapy at 2 L on triple inhaler therapy at home was brought to the hospital by EMS owing to worsening respiratory status and altered mentation. No evidence of leukocytosis on admission. COVID-19 PCR positive ABG done which showed severe hypercarbic respiratory failure with a pH of 7.08 and PCO2 172. CTA from admission did not show any evidence of pulmonary embolism. No dense consolidation/groundglass opacities noted. Plan: Patient respiratory status and mentation significantly improved. She used BiPAP overnight. ABG this morning 3 hours post stopping BiPAP showed a pH of 7.36 with a PCO2 of 74 and PO2 of 61.2. Auscultation improved but still showed mild expiratory wheeze. Plan: -F/U PT OT consult/recs -Continue nasal supplementation only as needed during the daytime to maintain O2 saturation goal of 9
[2022-07-14 09:36] LABS: ABG HCO3 41.4 mmhg (22.0-26.0); ABG Oxygen Saturation 92 % (90-100); ABG PH 7.36 mmol/L (7.35-7.45); ABG PO2 61.2 mmhg (80-100); ABG TCO2 43.7 mmhg (23-27)
[2022-07-14 09:38] LABS: Allen's Test Acceptable; Source Right Radial
[2022-07-14 09:39] LABS: ABG PCO2 74.5 mmhg (35.0-45.0)
--- NOTE | 2022-07-14 11:10 | HMH.OTEV ---
OT Inpatient Evaluation Rehab OT IP Evaluation Start: 07/14/22 09:58 Freq: ONCE Status: Active Protocol: Document 07/14/22 11:04 [facility] (Rec: 07/14/22 11:09 [facility] [id number]) Rehab OT IP Assessment Subjective History Pt oriented x 3 on arrival. Pt agreeable to engage in therapy evaluation. Pt was admitted on 07/12/22 due to Acute respiratory failure and COVID+. She was found unresponsive by her sister. Prior to being admitted, pt lived with her sister. Pt claims she was independent with functional transfers and ADLs such as feeding, bathing, and dressing. However, she was dependent upon sister to complete IADLs. Pt did use a walker prior during functional transfers. Pt was also on oxygen. Pt has a past medical history of: Chronic hypercapnic respiratory failure Chronically on benzodiazepine therapy COPD (chronic obstructive pulmonary disease) COPD exacerbation COVID-19 virus infection Generalized anxiety disorder GERD (gastroesophageal reflux disease) Hypertension Subjective I need to pee. Objective Patient Orientation Person,Place,Birthday Upper Extremity Gross ROM Min Limitation <25% Shoulder ROM Limitations Muscle Weakness Elbow ROM Limitations Muscle Weakness Wrist Limitations of Range of Motion Muscle Weakness Bed Mobility bed mobility-scooting,bed mobility - supine/sit,bed mobility - rolling Assist Level Minimal x 1 (25% assist) Transfer Training Sit/Stand/Step Transfer Assist Level Moderate x 1 (50% assist) Rehab OT IP prob,goals,plan Problems Date of Evaluation: 07/14/22 OT IP Problems Bed Mobility,Transfers,Balance ,Self care,Safety Rehab Potential Rehab Potential Good Equipment Needs
[2022-07-14 11:19] LABS: POC Glucose,Bedside 114 (70-110)
--- NOTE | 2022-07-14 11:23 | HMH.PTEV ---
Physical Therapy Evaluation Rehab PT IP Evaluation Start: 07/14/22 09:58 Freq: ONCE Status: Active Protocol: Document 07/14/22 11:08 GILDA (Rec: 07/14/22 11:23 GILDA [id number]) Subjective/History History History Patient is a 61 year old female admitted to [facility] 07/12/22 secondary to acute COPD exacerbation. Patient lives at home with her sister who provides assistance with all ADL's at home. Prevously required RW for ambulation, and was on O2 with nasal cannula. During evaluation O2 sats dropped to 69 achieving EOB. Patient is COVID-19 +. Subjective Subjective I think I should probably go somewhere for more therapy after I leave here. Rehab PT IP Eval Objective Appearance Patient Behavior Appropriate,Cooperative Patient Orientation Person,Place Difficulty following instructions none Speech Pattern Mumbled Ambulation Patient Able to Ambulate No Balance Ability to Arise Able, uses arms to help Sitting Balance Leans or slides in chair Standing Balance Steady, wide stance Dynamic Sitting Balance Ability Good Dynamic Standing Balance Ability Good Transfers Bed Transfer Ability Independent Sit to Stand Bed Transfer Ability Moderate x 1 (50% assist) ROM All Extremities PT ROM Status WFL MMT All Extremities PT MMT WFL Rehab PT IP prob,goals,plan Problems Date of Evaluation: 07/14/22 PT IP Problems Bed Mobility,Transfers,Gait, Balance,Self care,Safety Rehab Potential Rehab Potential Good Equipment Needs Assistive Devices None / NA Plan PT Intervention Plan Bed Mobility,Transfers,Gait, Balance,Self care,Safety, Therapeutic Exercise PT Plan Frequency BID Duration LOS Discharge Goals Bed Transfer Ability Independent Sit to Stand Chair Transfer Ability Independent Ambulation Assistive Device Rolling Walker Ambulation Distance (feet) 20 Discharge Plan PT Discharge Plan PT sugesst discharge to SNF to continue further rehab once found medically stable by . G -code Required Yes Eval Complexity Eval Charge Code
--- NOTE | 2022-07-14 11:36 | SW/DCPLANNER ---
Addendum entered by [facility] 07/20/22 11:36: Per Surekha Brower w/ [facility] patient is good for admission and bi pap will be delivered today. I have updated patients nurse regarding situation. Addendum entered by [facility] 07/19/22 13:58: Surekha vargas/ Marcelo Presley stated that Bi Pap will be delivered tomorrow. I have updated MD and nursing staff. Addendum entered by [facility] 07/19/22 08:04: Patient has been approved by insurance for admission at [facility]. Once bi-pap machine is delivered [facility] level [facility]. Addendum entered by Antonia Brennan RN 07/18/22 15:20: [facility] called to request P2P, which was completed by Dr. Bermeo. We now have an authorization for patient to go to [facility]. Per Surekha, we are continuing to wait on bi-pap to be delivered to their facility. CM will continue to follow. Addendum entered by [facility] 07/17/22 12:35: Updated patient information has been faxed to Surekha Brower regarding bi-pap: per Surekha this will be ordered at facility. Addendum entered by [facility] 07/17/22 09:57: Updated patient information has been faxed to Surekha Presely. Addendum entered by [facility] 07/14/22 13:38: Patient is agreeable to placement at this time. Patient information has been sent to [facility] (DON is out till Sunday and will review it then) and [facility]. At this time the following facilities do NOT accept COVID positive: [facility], [place], [place] and [facility]. I am waiting to hear back from following facilities regarding admission of COVID positive patient's: [facility], [facility] and [facility]. Patient is agreeable to any facility. Addendum entered by [facility] 07/14/22 11:39: Patient's sister (Faustina) stated that patient resides at home with her. Faustina stated that prior to becoming sick she would stay in bed about 23 hours a day: only getting up to use restroom. Faustina stated that patient is capable of ambulating just chooses not to at home. Faustina also stated that she does not think patient would be willing to discharge to SNF level of care. I will follow up with patient once she is more alert. Original Note: PT/OT evaluated this patient and has recommended placement at time of discharge. I attempted to speak with patient this AM regarding discharge plans/placement: patient was asleep and unable to answer any of my questions. Patient's nurse (Speedy) attempted to wake patient as well but was unable and placed patient back on bi pap. I will attempt to speak with patient again this afternoon and I will speak with patient's sister today as well.
--- NOTE | 2022-07-14 15:01 | EXP.PN ---
Subjective *Date: 07/14/22 *Time: 15:01 Interval history: Date of service July 14, 2022 The patient reports that she is still tired. Nursing staff report that she remains afebrile with stable heart rates and blood pressures. Her oxygen saturations are appropriate on 1 L of oxygen at rest. She tolerated her nightly BiPAP therapy with no concerns. This morning her blood gas was drawn after being off BiPAP for 3 hours. We have reviewed and discussed her morning labs and I personally interpreted her labs as follows: ABG with normal pH PCO2 of 75 and PO2 of 61. Her morning CBC identifies a normal white blood cell count with stable hemoglobin hematocrit and platelet count. Her chemistry panel identifies normal electrolytes with elevated carbon dioxide. Her BUN is 33 and her creatinine 0.5. Her glucose trend is under 200. Her procalcitonin is negative. PT and OT are due to see her today. Exam Data for Last 24 hours Vital signs and Labs for Last 24 Hours: Temp Pulse Resp BP Pulse Ox FiO2 98.4 F 87 16 143/82 H 90 L 30 07/14/22 11:55 07/14/22 13:27 07/14/22 10:00 07/14/22 10:00 07/14/22 13:27 07/14/22 01:45 Laboratory Results - last 24 hr 07/13/22 17:00: POC Glucose 143 H 07/13/22 20:32: POC Glucose 163 H 07/14/22 05:42: POC Glucose 214 H 07/14/22 05:57: WBC 8.5, RBC 3.37 L, Hgb 10.1 L, Hct 32.2 L, MCV 95.8, MCH 30.1, MCHC 31.4 L, RDW 13.0, Plt Count 165 D, MPV 10.1, Neut % (Auto) 72.1, Lymph % (Auto) 19.2, [place] % (Auto) 8.4, Eos % (Auto) 0.0 L, Baso % (Auto) 0.2, Neut # (Auto) 6.1, Lymph # (Auto) 1.6, [place] # (Auto) 0.7, Eos # (Auto) 0.0, Baso # (Auto) 0.0 07/14/22 05:57: Sodium 147 H, Potassium 3.6 D, Chloride 106, Carbon Dioxide 38 H, Anion Gap 6.6, BUN 33 H, Creatinine 0.50 L, Estimated Creat Clear 114, Estimated GFR 126, Est GFR ( Amer) 152, Glucose 200 H, Calcium 8.3 L, Total Bilirubin 0.2, AST 29, ALT 18, Alkaline Phosphatase 41, Total Protein 5.7 L, Albumin 3.3 L, Globulin 2.4, Albumin/Globulin Ratio 1.4 07/14/22 06:00: Specimen Source Right radial, O2 % 1lpm nc, ABG pH 7.36, ABG pCO2 74.5 H, ABG pO2 61.2 L, ABG HCO3 41.4 H, ABG Total CO2 43.7 H, ABG O2 Saturation 92, ABG Base Excess 16.0 H, Jay Test Acceptable 07/14/22 11:05: POC Glucose 114 H I & O for Last 24 hours: Intake & Output 07/11/22 07/12/22 07/13/22 07/14/22 23:59 23:59 23:59 23:59 Intake Total 250 / 250 2729 / 2729 1117 / 1117 Output Total 1100 / 1100 850 / 850 400 / 400 Balance -850 / -850 1879 / 1879 717 / 717 Weight 58.315 kg 59.1 kg 60.146 kg Microbiology Reports for the Last 24 Hours: Microbiology 07/12/22 10:10 Blood Blood Culture - Preliminary NO GROWTH AFTER 48 HOURS 07/12/22 10:10 Blood Blood Culture - Preliminary NO GROWTH AFTER 48 HOURS Constitutional Constitutional: no acute distress, thin, chronically ill appearing and cooperative *Routine HEENT Exam Head: Present normocephalic Eye: Present EOMI and PERRL ENT: Present mucous membranes moist *Routine Neck Exam Neck: Present supple; Absent lymphadenopathy *Routine Respiratory Exam Respiratory: Present rhonchi, wheezes, distant breath sounds, normal respiratory effort and symmetric chest movement *Routine Cardiovascular Exam Cardiovascular: Present RRR and tachycardia *Routine Abdominal Exam Abdominal: Present soft and normoactive bowel sounds; Absent tenderness *Routine Extremities Exam Extremities: Present full ROM, pulses intact and normal capillary refill; Absent cyanosis, clubbing or edema *Routine Skin Exam Skin: Present warm; Absent rash *Routine Neurological Exam Neurological: Present alert, oriented X3, moving all extremities, vision grossly intact and hearing grossly intact; Absent sensory deficit or motor deficit Routine Psychiatric Exam Psychiatric: Present normal affect, normal thought process, cooperative, good insight and good judgment Assessment and Plan *Assessment and plan
[2022-07-14 16:39] LABS: Microscopic, Urine URINE MICROSCOPIC (MICROSCOPIC)
[2022-07-14 16:41] LABS: Appearance,Urine CLEAR (Clear); Bilirubin,Urine Negative (Negative); Blood, Urine TRACE-I (Negative); Color,Urine YELLOW (Yellow); Glucose,Urine (UA) 3+ (Negative); Ketones,Urine Negative (Negative); Leukocyte Esterase,Urine Negative (Negative); Nitrate,Urine Negative (Negative); Protein,Urine Negative (Negative); Urobilinogen,Urine 0.2 EU/dl (0.2)
[2022-07-14 17:12] LABS: RBC,Urine Occasional #/hpf (0-3)
--- NOTE | 2022-07-14 18:28 | PC.NURSE ---
No acute changes noted this shift, patient was weaned to RA but unable to keep oxygen saturations above 90%, placed on 1LNC and has tolerated well, worked with PT/OT this shift, has been up to chair for several hours, BM x2, lung sounds diminished in bl bases with scattered wheezing, denies any cp or soa.
[2022-07-14 20:27] LABS: POC Glucose,Bedside 165 (70-110)
[2022-07-15] VITALS (15 sets, daily range): BP systolic 111–149; BP diastolic 65–94; PULSE 71–125; RESP 18–27; TEMP 36.5–36.9; O2SAT 92–100; BMI 23.1
[2022-07-15 06:37] LABS: POC Glucose,Bedside 107 (70-110)
[2022-07-15 06:53] LABS: ABG Base Excess 11.9 mmol/L (-2.4-2.3); ABG HCO3 36.5 mmhg (22.0-26.0); ABG Oxygen Saturation 97 % (90-100); ABG PH 7.41 mmol/L (7.35-7.45); ABG PO2 86.3 mmhg (80-100); ABG TCO2 38.3 mmhg (23-27)
[2022-07-15 06:55] LABS: Allen's Test Acceptable; Source Right Radial; Vent Rate 26
[2022-07-15 06:57] LABS: ABG PCO2 58.9 mmhg (35.0-45.0)
[2022-07-15 08:15] LABS: Basophils # 0.1 K/mm3 (0-0.2); Basophils % 1.2 % (0.1-2.0); Eosinophils # 0.1 K/mm3 (0.0-0.4); Eosinophils % 1.1 % (0.1-12.0); Hematocrit 34.6 % (37.0-47.0); Hemoglobin 10.9 g/dL (12.2-16.2); Lymphocytes # 2.2 K/mm3 (0.7-4.5); Mean Corpuscular HGB Conc 31.4 g/dL (31.8-35.4); Mean Corpuscular Hemoglobin 30.5 pg (27.0-31.2); Mean Corpuscular Volume 96.9 fl (81-99); Mean Platelet Volume 9.7 fl (7.4-10.4); Monocytes # 0.5 K/mm3 (0.1-1.0); Neutrophils # 3.5 K/mm3 (1.8-7.8); Neutrophils % 55.7 % (37.0-80.0); Platelet Count 158 K/mm3 (142-424); Red Blood Count 3.57 M/mm3 (4.20-5.40); Red Cell Distribution Width 12.7 % (11.5-17.5); White Blood Count 6.3 K/mm3 (4.8-10.8)
[2022-07-15 08:28] LABS: Chloride 108 mmol/L (98-107); Potassium 3.7 mmoL/L (3.5-5.1); Sodium 148 mmol/L (136-145)
[2022-07-15 08:31] LABS: Alanine Aminotransferase 18 U/L (12-78); Albumin Level 3.5 g/dl (3.5-5.0); Albumin/Globulin Ratio 1.6 (1.1-1.8); Alkaline Phosphatase 46 U/L (38-126); Anion Gap 3.7 mEq/L (5-15); Aspartate Amino Transferase 26 U/L (14-36); Bilirubin,Total 0.2 mg/dl (0.2-1.3); Blood Urea Nitrogen 18 mg/dl (7-17); Calcium 8.5 mg/dl (8.4-10.2); Carbon Dioxide 40 mmol/L (22.0-30.0); Creatinine Clearance Estimated 148 mL/min (50-200); Estimated Glomerular Filt Rate 163 ml/min (>60); GFR (African American) 197 ML/MIN (>60); Globulin 2.2 g/dL (1.3-3.2); Glucose 108 mg/dl (74-100); Total Protein,Serum 5.7 g/dl (6.3-8.2)
[2022-07-15 08:41] LABS: NT Pro Brain Natriuretic Pep. 622 pg/mL (0-125)
--- NOTE | 2022-07-15 10:33 | EXP.PHA.PN ---
Subjective *Date: 07/15/22 *Time: 10:33 Medical Exam Vital signs and Labs for Last 24 Hours: Vital Signs Temp Pulse Pulse Resp BP Pulse Ox FiO2 07/15/22 09:00 101 H 98 07/15/22 09:06 99 07/15/22 08:00 97.9 F 125 H 21 146/94 H 98 07/15/22 06:20 84 07/15/22 06:20 83 07/15/22 06:20 99 07/15/22 04:00 98.5 F 71 27 H 140/94 H 100 07/15/22 04:00 80 07/15/22 02:56 74 07/15/22 02:56 73 07/15/22 02:56 30 07/15/22 00:00 80 07/14/22 23:51 98.7 F 79 26 H 140/89 98 07/14/22 20:00 98.7 F 113 H 18 166/98 H 96 07/14/22 21:54 79 07/14/22 21:54 76 07/14/22 21:54 30 07/14/22 20:00 110 H 07/14/22 11:45 83 L 07/14/22 18:23 106 H 07/14/22 18:23 109 H 07/14/22 18:23 95 07/14/22 16:00 80 16 139/82 94 L 07/14/22 16:00 94 L 07/14/22 16:00 94 H 07/14/22 12:00 70 07/14/22 13:27 87 07/14/22 13:27 102 H 07/14/22 13:27 90 L 07/14/22 11:55 98.4 F Intake and Output 07/14/22 07/15/22 07/15/22 23:59 07:59 15:59 Intake Total 1081 / 2258 587 / 707 120 / 707 Output Total 500 / 1400 700 / 800 100 / 800 Balance 581 / 858 -113 / -93 20 / - Intake: Intake, Oral Amount 360 / 980 120 / 120 Intake, Total IV Amount 721 / 1278 587 / 587 0.9 % Sodium Chloride 1,000 ml 571 / 1128 @ 50 mls/hr IV .Q20H [facility]END[facility] TO [facility] Rx#: [id number] Ceftriaxone Sodium 1 gm In 0.9 50 / 50 % Sodium Chloride 50 ml @ 100 mls/hr IV Q24H [facility] TO [facility] Rx#:[id number] Remdesivir 100 mg In 0.9 % 100 / 100 587 / 587 Sodium Chloride 100 ml @ 100 mls/hr IV Q24H [facility]ENDING [facility] TO [facility] Rx#:[id number] Output: Output, Urine Amount 500 / 1400 500 / 600 100 / 600 Output, Other Amount 200 / 200 Other: Number of Unmeasured Voids 0 Number of Bowel Movements 2 Weight 60 kg 62.823 kg Patient Weight 07/15/22 23:59 Weight 62.823 kg Laboratory Results - last 24 hr 07/14/22 11:05: POC Glucose 114 H 07/14/22 16:28: Urine Color Yellow, Urine Appearance Clear, Urine pH 7.0, Ur Specific [place] 1.010, Urine Protein Negative, Urine Glucose (UA) 3+, Urine Ketones Negative, Urine Blood Trace-i, Urine Nitrate Negative, Urine Bilirubin Negative, Urine Urobilinogen 0.2, Ur Leukocyte Esterase Negative, Urine RBC Occasional, Urine WBC None, Urine Bacteria None 07/14/22 20:10: POC Glucose 165 H 07/15/22 06:28: POC Glucose 107 07/15/22 06:50: Specimen Source Right radial, O2 % 30% bipap22/8, ABG pH 7.41, ABG pCO2 58.9 H, ABG pO2 86.3, ABG HCO3 36.5 H, ABG Total CO2 38.3 H, ABG O2 Saturation 97, ABG Base Excess 11.9 H, Jay Test Acceptable, Vent Rate 26 07/15/22 07:16: WBC 6.3 D, RBC 3.57 L, Hgb 10.9 L, Hct 34.6 L, MCV 96.9, MCH 30.5, MCHC 31.4 L, RDW 12.7, Plt Count 158, MPV 9.7, Neut % (Auto) 55.7, Lymph % (Auto) 34.0, [place] % (Auto) 8.0, Eos % (Auto) 1.1, Baso % (Auto) 1.2, Neut # (Auto) 3.5, Lymph # (Auto) 2.2, [place] # (Auto) 0.5, Eos # (Auto) 0.1, Baso # (Auto) 0.1 07/15/22 07:16: NT-Pro-B Natriuret Pep 622 H 07/15/22 07:16: Sodium 148 H, Potassium 3.7, Chloride 108 H, Carbon Dioxide 40 H, Anion Gap 3.7 L, BUN 18 H D, Creatinine 0.40 L, Estimated Creat Clear 148, Estimated GFR 163, Est GFR ( Amer) 197 D, Glucose 108 H, Calcium 8.5, Total Bilirubin 0.2, AST 26, ALT 18, Alkaline Phosphatase 46, Total Protein 5.7 L, Albumin 3.5, Globulin 2.2, Albumin/Globulin Ratio 1.6 I & O for Labs for Last 24 Hours: Intake & Output 07/12/22 07/13/22 07/14/22 07/15/22 23:59 23:59 23:59 23:59 Intake Total 250 / 250 2729 / 2729 2258 / 2258 707 / 707 Output Total 1100 / 1100 850 / 850 900 / 1400 800 / 800 Balance -850 / -850 1879 / 1879 1358 / 858 -93 / -93 Weight 58.315 kg 59.1 kg 60 kg 62.823 kg Microbiology Reports for the Last 24 Hours: Microbiology 07/12/22 10:10 Blood Blood Culture - Preliminary
[2022-07-15 12:29] LABS: POC Glucose,Bedside 167 (70-110)
--- NOTE | 2022-07-15 14:16 | EXP.ACUTE.PN ---
Subjective *Date: 07/15/22 *Time: 14:16 Interval history: Patient stable this morning on 1 L nasal cannula oxygen. Tolerating BiPAP at night. Blood gas reviewed this morning better with pH 7.4, CO2 58, PO2 of 86. Tolerating p.o. intake. Requiring assistance to ambulate to the bathroom. Still awaiting placement for nursing/rehab. Medical Exam Vital signs and Labs for Last 24 Hours: Vital Signs Temp Pulse Pulse Resp BP Pulse Ox FiO2 07/15/22 12:00 98.0 F 80 18 135/76 95 07/15/22 12:01 80 07/15/22 12:01 80 07/15/22 12:01 92 L 07/15/22 08:00 115 H 07/15/22 09:00 101 H 98 07/15/22 09:06 99 07/15/22 08:00 97.9 F 125 H 21 146/94 H 98 07/15/22 06:20 84 07/15/22 06:20 83 07/15/22 06:20 99 07/15/22 04:00 98.5 F 71 27 H 140/94 H 100 07/15/22 04:00 80 07/15/22 02:56 74 07/15/22 02:56 73 07/15/22 02:56 30 07/15/22 00:00 80 07/14/22 23:51 98.7 F 79 26 H 140/89 98 07/14/22 20:00 98.7 F 113 H 18 166/98 H 96 07/14/22 21:54 79 07/14/22 21:54 76 07/14/22 21:54 30 07/14/22 20:00 110 H 07/14/22 18:23 106 H 07/14/22 18:23 109 H 07/14/22 18:23 95 07/14/22 16:00 80 16 139/82 94 L 07/14/22 16:00 94 L 07/14/22 16:00 94 H Intake and Output 07/14/22 07/15/22 07/15/22 23:59 07:59 15:59 Intake Total 1081 / 2258 587 / 707 120 / 707 Output Total 500 / 1400 700 / 800 100 / 800 Balance 581 / 858 -113 / -93 20 / -93 Intake: Intake, Oral Amount 360 / 980 120 / 120 Intake, Total IV Amount 721 / 1278 587 / 587 0.9 % Sodium Chloride 1,000 ml 571 / 1128 @ 50 mls/hr IV .Q20H [facility] Rx#: [id number] Ceftriaxone Sodium 1 gm In 0.9 50 / 50 % Sodium Chloride 50 ml @ 100 mls/hr IV Q24H [facility] Rx#:[id number] Remdesivir 100 mg In 0.9 % 100 / 100 587 / 587 Sodium Chloride 100 ml @ 100 mls/hr IV Q24H [facility] Rx#:[id number] Output: Output, Urine Amount 500 / 1400 500 / 600 100 / 600 Output, Other Amount 200 / 200 Other: Number of Unmeasured Voids 0 Number of Bowel Movements 2 Weight 60 kg 62.823 kg Patient Weight 07/15/22 23:59 Weight 62.823 kg Laboratory Results - last 24 hr 07/14/22 16:28: Urine Color Yellow, Urine Appearance Clear, Urine pH 7.0, Ur Specific [place] 1.010, Urine Protein Negative, Urine Glucose (UA) 3+, Urine Ketones Negative, Urine Blood Trace-i, Urine Nitrate Negative, Urine Bilirubin Negative, Urine Urobilinogen 0.2, Ur Leukocyte Esterase Negative, Urine RBC Occasional, Urine WBC None, Urine Bacteria None 07/14/22 20:10: POC Glucose 165 H 07/15/22 06:28: POC Glucose 107 07/15/22 06:50: Specimen Source Right radial, O2 % 30% bipap22/8, ABG pH 7.41, ABG pCO2 58.9 H, ABG pO2 86.3, ABG HCO3 36.5 H, ABG Total CO2 38.3 H, ABG O2 Saturation 97, ABG Base Excess 11.9 H, Jay Test Acceptable, Vent Rate 26 07/15/22 07:16: WBC 6.3 D, RBC 3.57 L, Hgb 10.9 L, Hct 34.6 L, MCV 96.9, MCH 30.5, MCHC 31.4 L, RDW 12.7, Plt Count 158, MPV 9.7, Neut % (Auto) 55.7, Lymph % (Auto) 34.0, [place] % (Auto) 8.0, Eos % (Auto) 1.1, Baso % (Auto) 1.2, Neut # (Auto) 3.5, Lymph # (Auto) 2.2, [place] # (Auto) 0.5, Eos # (Auto) 0.1, Baso # (Auto) 0.1 07/15/22 07:16: NT-Pro-B Natriuret Pep 622 H 07/15/22 07:16: Sodium 148 H, Potassium 3.7, Chloride 108 H, Carbon Dioxide 40 H, Anion Gap 3.7 L, BUN 18 H D, Creatinine 0.40 L, Estimated Creat Clear 148, Estimated GFR 163, Est GFR ( Amer) 197 D, Glucose 108 H, Calcium 8.5, Total Bilirubin 0.2, AST 26, ALT 18, Alkaline Phosphatase 46, Total Protein 5.7 L, Albumin 3.5, Globulin 2.2, Albumin/Globulin Ratio 1.6 07/15/22 11:41: POC Glucose 167 H I & O for Labs for Last 24 Hours: Intake & Output 07/12/22 07/13/22 07/14/22 07/15/22 23:59 23:59 23:59 23:59 Intake Total 250 / 250 2729 / 2729 2258 / 2258 707 / 707 Output Total
[2022-07-15 17:24] LABS: POC Glucose,Bedside 184 (70-110)
[2022-07-15 18:23] LABS: Blood Urea Nitrogen 18 mg/dl (7-17); Calcium 8.3 mg/dl (8.4-10.2); Chloride 106 mmol/L (98-107); Creatinine Clearance Estimated 119 mL/min (50-200); Estimated Glomerular Filt Rate 126 ml/min (>60); GFR (African American) 152 ML/MIN (>60); Glucose 189 mg/dl (74-100); Potassium 4.1 mmoL/L (3.5-5.1); Sodium 145 mmol/L (136-145)
[2022-07-15 18:30] LABS: Anion Gap 5.1 mEq/L (5-15); Carbon Dioxide 38 mmol/L (22.0-30.0)
[2022-07-16] VITALS (19 sets, daily range): BP systolic 116–147; BP diastolic 58–88; PULSE 69–100; RESP 18–20; TEMP 36.7–37.6; O2SAT 93–98; BMI 22.5
--- NOTE | 2022-07-16 01:12 | PC.NURSE ---
RECEIVED REPORT FROM Rosario LAMAS RN AT 0100. [place]/CONTACT ISOLATION FOR COVID 19. PATIENT RESTING QUIETLY IN THE BED WITH CIPAP IN USE AT 30% Fi02. DENIES PAIN OR DISCOMFORT.
--- NOTE | 2022-07-16 01:16 | PC.NURSE ---
report given to Matt Love RN
[2022-07-16 07:42] LABS: Basophils % 0.7 % (0.1-2.0); Eosinophils # 0.1 K/mm3 (0.0-0.4); Eosinophils % 1.7 % (0.1-12.0); Hematocrit 33.3 % (37.0-47.0); Hemoglobin 10.7 g/dL (12.2-16.2); Lymphocytes # 2.1 K/mm3 (0.7-4.5); Mean Corpuscular Hemoglobin 30.2 pg (27.0-31.2); Mean Corpuscular Volume 94.2 fl (81-99); Mean Platelet Volume 9.3 fl (7.4-10.4); Monocytes # 0.4 K/mm3 (0.1-1.0); Neutrophils # 2.9 K/mm3 (1.8-7.8); Neutrophils % 52.7 % (37.0-80.0); Platelet Count 160 K/mm3 (142-424); Red Blood Count 3.54 M/mm3 (4.20-5.40); Red Cell Distribution Width 12.8 % (11.5-17.5); White Blood Count 5.4 K/mm3 (4.8-10.8)
[2022-07-16 07:48] LABS: Chloride 106 mmol/L (98-107); Potassium 3.6 mmoL/L (3.5-5.1); Sodium 147 mmol/L (136-145)
[2022-07-16 07:50] LABS: Alanine Aminotransferase 18 U/L (12-78); Aspartate Amino Transferase 25 U/L (14-36); Bilirubin,Total 0.2 mg/dl (0.2-1.3); Blood Urea Nitrogen 18 mg/dl (7-17); Creatinine Clearance Estimated 116 mL/min (50-200); Estimated Glomerular Filt Rate 126 ml/min (>60); GFR (African American) 152 ML/MIN (>60)
[2022-07-16 07:51] LABS: Albumin Level 3.5 g/dl (3.5-5.0); Albumin/Globulin Ratio 1.4 (1.1-1.8); Alkaline Phosphatase 41 U/L (38-126); Calcium 8.4 mg/dl (8.4-10.2); Globulin 2.5 g/dL (1.3-3.2); Glucose 102 mg/dl (74-100)
[2022-07-16 07:58] LABS: Anion Gap 4.6 mEq/L (5-15); Carbon Dioxide 40 mmol/L (22.0-30.0)
--- NOTE | 2022-07-16 11:30 | PC.NURSE ---
Blood Glucose 126
[2022-07-16 11:47] LABS: POC Glucose,Bedside 126 (70-110)
--- NOTE | 2022-07-16 14:37 | EXP.ACUTE.PN ---
Subjective *Date: 07/16/22 *Time: 16:29 Interval history: Patient states she feels somewhat better today. Stable on room air, 1 L. Hemodynamically stable. Afebrile. No nausea or vomiting. Requiring 1 person assistance to get to the bathroom. Denies vomiting, chest pain, diarrhea, headache Medical Exam Vital signs and Labs for Last 24 Hours: Vital Signs Temp Pulse Pulse Resp BP Pulse Ox FiO2 07/16/22 12:00 80 07/16/22 11:30 71 07/16/22 11:30 70 07/16/22 11:25 98.6 F 69 18 131/62 94 L 07/16/22 08:00 93 L 07/16/22 09:26 93 L 07/16/22 08:00 90 07/16/22 07:27 98.8 F 89 20 123/58 L 98 07/16/22 00:00 80 07/16/22 06:36 88 07/16/22 06:36 85 07/16/22 04:00 98.6 F 86 20 137/82 97 07/16/22 04:00 75 07/16/22 04:28 75 07/15/22 22:17 30 07/16/22 00:17 85 07/16/22 00:16 87 07/16/22 00:00 99.7 F H 82 20 122/75 96 07/16/22 00:00 30 07/15/22 20:00 90 07/15/22 20:00 98.0 F 84 18 111/65 100 07/15/22 18:52 81 07/15/22 18:52 83 07/15/22 16:00 86 07/15/22 16:00 96 07/15/22 15:45 97.7 F 92 H 20 149/88 H 94 L Intake and Output 07/15/22 07/16/22 07/16/22 23:59 07:59 15:59 Intake Total 1018 / 1845 240 / 650 410 / 650 Output Total 650 / 1450 950 / 950 Balance 368 / 395 240 / -300 -540 / -300 Intake: Intake, Oral Amount 240 / 480 240 / 600 360 / 600 Intake, Other Amount 638 / 638 Intake, Total IV Amount 140 / 727 Ceftriaxone Sodium 1 gm In 0.9 40 / 40 % Sodium Chloride 50 ml @ 100 mls/hr IV Q24H [facility] Rx#:[id number] Remdesivir 100 mg In 0.9 % 100 / 687 Sodium Chloride 100 ml @ 100 mls/hr IV Q24H [facility] Rx#:[id number] Infusion Intake 50 / 50 Ceftriaxone Sodium 1 gm In 0.9 50 / 50 % Sodium Chloride 50 ml @ 100 mls/hr IV Q24H [facility] Rx#:[id number] Output: Output, Urine Amount 650 / 1250 950 / 950 Other: Number of Voids 1 Number of Unmeasured Voids 1 0 Number of Bowel Movements 1 Number of Unmeasured Emesis 1 Episodes Weight 61.348 kg Patient Weight 07/16/22 23:59 Weight 61.348 kg Laboratory Results - last 24 hr 07/15/22 17:09: POC Glucose 184 H 07/15/22 18:00: Sodium 145, Potassium 4.1, Chloride 106, Carbon Dioxide 38 H, Anion Gap 5.1, BUN 18 H, Creatinine 0.50 L D, Estimated Creat Clear 119, Estimated GFR 126, Est GFR ( Amer) 152 D, Glucose 189 H D, Calcium 8.3 L 07/16/22 07:09: WBC 5.4, RBC 3.54 L, Hgb 10.7 L, Hct 33.3 L, MCV 94.2, MCH 30.2, MCHC 32.0, RDW 12.8, Plt Count 160, MPV 9.3, Neut % (Auto) 52.7, Lymph % (Auto) 38.0, [place] % (Auto) 7.0, Eos % (Auto) 1.7, Baso % (Auto) 0.7, Neut # (Auto) 2.9, Lymph # (Auto) 2.1, [place] # (Auto) 0.4, Eos # (Auto) 0.1, Baso # (Auto) 0.0 07/16/22 07:09: Sodium 147 H, Potassium 3.6, Chloride 106, Carbon Dioxide 40 H, Anion Gap 4.6 L, BUN 18 H, Creatinine 0.50 L, Estimated Creat Clear 116, Estimated GFR 126, Est GFR ( Amer) 152, Glucose 102 H D, Calcium 8.4, Total Bilirubin 0.2, AST 25, ALT 18, Alkaline Phosphatase 41, Total Protein 6.0 L, Albumin 3.5, Globulin 2.5, Albumin/Globulin Ratio 1.4 07/16/22 11:29: POC Glucose 126 H I & O for Labs for Last 24 Hours: Intake & Output 07/13/22 07/14/22 07/15/22 07/16/22 23:59 23:59 23:59 23:59 Intake Total 2729 / 2729 2258 / 2258 1845 / 1845 650 / 650 Output Total 850 / 850 900 / 1400 1450 / 1450 950 / 950 Balance 1879 / 1879 1358 / 858 395 / 395 -300 / -300 Weight 59.1 kg 60 kg 62.823 kg 61.348 kg Constitutional: Present no acute distress, average body habitus and chronically ill appearing Head: Present atraumatic and normocephalic ENT: Present normal exam Neck: Present normal inspection Respiratory: Present wheezes, diminished air movement and normal respiratory effort; Absent accessory muscle use, rhonchi or crackles Cardiac: Present
[2022-07-17] VITALS (14 sets, daily range): BP systolic 92–170; BP diastolic 56–84; PULSE 65–109; RESP 16–26; TEMP 36.6–36.9; O2SAT 90–98; BMI 22.1
--- NOTE | 2022-07-17 04:41 | PC.NURSE ---
Pt has rested well, has had no complaints this shift. Pts O2 sats dropped to low-mid 80's while sleeping a few times, but increased back to 90's quickly. Pt on 2L NC. LS diminished. Non-productive cough noted.
[2022-07-17 06:47] LABS: Chloride 106 mmol/L (98-107); Potassium 3.6 mmoL/L (3.5-5.1); Sodium 146 mmol/L (136-145)
[2022-07-17 06:49] LABS: Blood Urea Nitrogen 16 mg/dl (7-17); Creatinine Clearance Estimated 114 mL/min (50-200); Estimated Glomerular Filt Rate 126 ml/min (>60); GFR (African American) 152 ML/MIN (>60)
[2022-07-17 06:50] LABS: Alanine Aminotransferase 16 U/L (12-78); Albumin Level 3.1 g/dl (3.5-5.0); Albumin/Globulin Ratio 1.4 (1.1-1.8); Alkaline Phosphatase 34 U/L (38-126); Aspartate Amino Transferase 22 U/L (14-36); Calcium 8.2 mg/dl (8.4-10.2); Globulin 2.2 g/dL (1.3-3.2); Glucose 127 mg/dl (74-100); Total Protein,Serum 5.3 g/dl (6.3-8.2)
[2022-07-17 06:52] LABS: Basophils % 0.4 % (0.1-2.0); Eosinophils # 0.1 K/mm3 (0.0-0.4); Eosinophils % 2.1 % (0.1-12.0); Hematocrit 32.4 % (37.0-47.0); Hemoglobin 10.4 g/dL (12.2-16.2); Lymphocytes # 2.1 K/mm3 (0.7-4.5); Lymphocytes % 37.2 % (10-50); Mean Corpuscular HGB Conc 32.2 g/dL (31.8-35.4); Mean Corpuscular Hemoglobin 29.7 pg (27.0-31.2); Mean Corpuscular Volume 92.3 fl (81-99); Mean Platelet Volume 10.1 fl (7.4-10.4); Monocytes # 0.5 K/mm3 (0.1-1.0); Monocytes % 8.3 % (1.7-9.3); Neutrophils % 51.9 % (37.0-80.0); Platelet Count 175 K/mm3 (142-424); Red Blood Count 3.51 M/mm3 (4.20-5.40); White Blood Count 5.7 K/mm3 (4.8-10.8)
[2022-07-17 06:58] LABS: Anion Gap 2.6 mEq/L (5-15); Bilirubin,Total 0.1 mg/dl (0.2-1.3); Carbon Dioxide 41 mmol/L (22.0-30.0)
--- NOTE | 2022-07-17 09:52 | EXP.PULM.PN ---
Subjective *Date: 07/17/22 *Time: 10:39 Interval history: No acute respiratory events over the weekend. Denies any new respiratory complaints. Pulmonology Exam Inpatient Vital signs and Labs for Last 24 Hours: Temp Pulse Resp BP Pulse Ox FiO2 98.4 F 109 H 22 138/79 98 30 07/17/22 07:38 07/17/22 08:00 07/17/22 07:38 07/17/22 07:38 07/17/22 08:00 07/16/22 00:00 Laboratory Results - last 24 hr 07/16/22 11:29: POC Glucose 126 H 07/17/22 05:30: Sodium 146 H, Potassium 3.6, Chloride 106, Carbon Dioxide 41 H*, Anion Gap 2.6 L, BUN 16, Creatinine 0.50 L, Estimated Creat Clear 114, Estimated GFR 126, Est GFR ( Amer) 152, Glucose 127 H D, Calcium 8.2 L, Total Bilirubin 0.1 L, AST 22, ALT 16, Alkaline Phosphatase 34 L, Total Protein 5.3 L, Albumin 3.1 L D, Globulin 2.2, Albumin/Globulin Ratio 1.4 07/17/22 05:30: WBC 5.7, RBC 3.51 L, Hgb 10.4 L, Hct 32.4 L, MCV 92.3, MCH 29.7, MCHC 32.2, RDW 13.0, Plt Count 175, MPV 10.1, Neut % (Auto) 51.9, Lymph % (Auto) 37.2, Zapata % (Auto) 8.3, Eos % (Auto) 2.1, Baso % (Auto) 0.4, Neut # (Auto) 3.0, Lymph # (Auto) 2.1, Zapata # (Auto) 0.5, Eos # (Auto) 0.1, Baso # (Auto) 0.0 I & O for Labs for Last 24 Hours: Intake & Output 07/14/22 07/15/22 07/16/22 07/17/22 23:59 23:59 23:59 23:59 Intake Total 2258 / 2258 1845 / 1845 1590 / 1590 240 / 240 Output Total 900 / 1400 1450 / 1450 1650 / 1750 400 / 400 Balance 1358 / 858 395 / 395 -60 / -160 -160 / -160 Weight 132 lb 4.438 oz 138 lb 8 oz 135 lb 4 oz 132 lb 11.2 oz Constitutional: Present mild distress Head: Present normocephalic and atraumatic ENT: Present normal exam, normal oropharynx and mucous membranes moist Neck: Present normal inspection and full ROM Respiratory: Present respiratory distress; Absent accessory muscle use, patient mechanically ventilated, wheezes, diminished air movement or able to speak in complete sentences Cardiac: Present S1/S2, Tachycardia and radial pulses present GI: Present soft and distention; Absent tenderness or guarding Rectal (female): Present deferred (female): Present deferred Skin: Present intact; Absent cyanosis or jaundice Neuro: Present alert and awake; Absent oriented x 3 Extremities: Present normal inspection; Absent clubbing or cyanosis Psychiatric: Present normal affect and cooperative Assessment and Plan *Assessment and plan (1) Acute on chronic respiratory failure with hypoxia and hypercapnia: Status: Acute Category: Medical Code(s): J96.21 - Acute and chronic respiratory failure with hypoxia; J96.22 - Acute and chronic respiratory failure with hypercapnia (2) COVID-19: Status: Acute Category: Medical Code(s): U07.1 - COVID-19 (3) COPD exacerbation: Status: Acute Category: Medical Code(s): J44.1 - Chronic obstructive pulmonary disease with (acute) exacerbation Plan #Acute on chronic hypoxic hypercarbic respiratory failure: #COPD exacerbation: #COVID-19 pneumonia: Ms. Aviles is a 61-year-old female COPD greater than [id number] smoking on long-term oxygen therapy at 2 L on triple inhaler therapy at home was brought to the hospital by EMS owing to worsening respiratory status and altered mentation. No evidence of leukocytosis on admission. COVID-19 PCR positive ABG done which showed severe hypercarbic respiratory failure with a pH of 7.08 and PCO2 172. CTA from admission did not show any evidence of pulmonary embolism. No dense consolidation/groundglass opacities noted. She initially received aggressive limitations Of BiPAP That Improved Her Hypercarbic Respiratory Failure in Mentation. PT and OT Evaluated, Recommended Acute Rehab. Interval Update: Stable Respiratory Status over the Weekend. Continue to Use BiPAP at Night, Did Not Used It Yesterday Night. She completed 5-day course of antibiotics. Blood cultures negative Plan: -Continue nasal supplementation only as needed during the daytime to maintain O2 saturation goal of 9
--- NOTE | 2022-07-17 16:37 | EXP.ACUTE.PN ---
Subjective *Date: 07/17/22 *Time: 16:37 Interval history: Pleasant on interview today. Tolerating weaning of oxygen. Weaned to room air this morning for few hours. Tolerating BiPAP at night. Still remains quite weak and needing assistance to walk and get out of bed. Denies any fever, nausea, chest pain, vomiting. Medical Exam Vital signs and Labs for Last 24 Hours: Vital Signs Temp Pulse Pulse Resp BP Pulse Ox 07/17/22 12:00 80 07/17/22 14:59 97.9 F 87 22 153/83 H 95 07/17/22 11:40 94 H 07/17/22 11:40 92 H 07/17/22 11:14 98.1 F 85 16 170/80 H 96 07/17/22 08:00 109 H 98 07/17/22 08:00 100 H 07/17/22 07:38 98.4 F 109 H 22 138/79 98 07/17/22 06:05 82 07/17/22 06:05 85 07/17/22 06:05 90 L 07/17/22 04:00 80 07/17/22 04:00 98.4 F 70 20 130/84 97 07/17/22 00:00 70 07/17/22 00:00 70 07/17/22 00:00 98.4 F 66 20 92/56 L 96 07/16/22 23:28 76 07/16/22 23:27 77 07/16/22 20:00 100 H 07/16/22 20:00 98.4 F 97 H 18 116/88 96 07/16/22 18:49 73 07/16/22 18:49 73 Intake and Output 07/17/22 07/17/22 07/17/22 07:59 15:59 23:59 Intake Total 240 / 600 360 / 600 Output Total 300 / 400 100 / 400 Balance -60 / 200 260 / 200 Intake: Intake, Oral Amount 240 / 600 360 / 600 Output: Output, Urine Amount 300 / 400 100 / 400 Other: Number of Unmeasured Voids 1 2 Number of Bowel Movements 1 Weight 60.192 kg Patient Weight 07/17/22 23:59 Weight 60.192 kg Laboratory Results - last 24 hr 07/17/22 05:30: Sodium 146 H, Potassium 3.6, Chloride 106, Carbon Dioxide 41 H*, Anion Gap 2.6 L, BUN 16, Creatinine 0.50 L, Estimated Creat Clear 114, Estimated GFR 126, Est GFR ( Amer) 152, Glucose 127 H D, Calcium 8.2 L, Total Bilirubin 0.1 L, AST 22, ALT 16, Alkaline Phosphatase 34 L, Total Protein 5.3 L, Albumin 3.1 L D, Globulin 2.2, Albumin/Globulin Ratio 1.4 07/17/22 05:30: WBC 5.7, RBC 3.51 L, Hgb 10.4 L, Hct 32.4 L, MCV 92.3, MCH 29.7, MCHC 32.2, RDW 13.0, Plt Count 175, MPV 10.1, Neut % (Auto) 51.9, Lymph % (Auto) 37.2, Harris % (Auto) 8.3, Eos % (Auto) 2.1, Baso % (Auto) 0.4, Neut # (Auto) 3.0, Lymph # (Auto) 2.1, Harris # (Auto) 0.5, Eos # (Auto) 0.1, Baso # (Auto) 0.0 I & O for Labs for Last 24 Hours: Intake & Output 07/14/22 07/15/22 07/16/22 07/17/22 23:59 23:59 23:59 23:59 Intake Total 2258 / 2258 1845 / 1845 1590 / 1590 600 / 600 Output Total 900 / 1400 1450 / 1450 1650 / 1750 400 / 400 Balance 1358 / 858 395 / 395 -60 / -160 200 / 200 Weight 60 kg 62.823 kg 61.348 kg 60.192 kg Microbiology Reports for the Last 24 Hours: Microbiology 07/12/22 10:10 Blood Blood Culture - Final NO GROWTH AFTER 5 DAYS 07/12/22 10:10 Blood Blood Culture - Final NO GROWTH AFTER 5 DAYS Constitutional: Present no acute distress, average body habitus and chronically ill appearing Head: Present atraumatic and normocephalic ENT: Present normal exam Neck: Present normal inspection Respiratory: Present wheezes, diminished air movement and normal respiratory effort; Absent accessory muscle use, rhonchi or crackles Cardiac: Present Reg Rate and Rhythm GI: Present soft and normal bowel sounds; Absent tenderness Extremities: Present normal inspection and full ROM Skin: Present intact; Absent erythema Neuro: Present Grossly Intact, alert, awake, oriented x 3 and moves all extremities Comment:: Globally weak Assessment and Plan *Assessment and plan (1) Acute on chronic respiratory failure with hypoxia and hypercapnia: Status: Acute Category: Medical Code(s): J96.21 - Acute and chronic respiratory failure with hypoxia; J96.22 - Acute and chronic respiratory failure with hypercapnia (2) Acute heart failure with preserved ejection fraction: Status: Acute Category: Medical
--- NOTE | 2022-07-17 18:55 | PC.NURSE ---
pt has remained on 1L t/o most of shift, currently on room air, pt is aware of need to wear bipap while sleeping and is agreeable, HR 85-109, no complaints of pain, was up to chair part of shift
--- NOTE | 2022-07-17 20:12 | PC.NURSE ---
RT here to place patient on bipap.
[2022-07-18] VITALS (15 sets, daily range): BP systolic 92–118; BP diastolic 51–74; PULSE 69–95; RESP 18–24; TEMP 36.6–36.9; O2SAT 95–100; BMI 21.5
--- NOTE | 2022-07-18 04:18 | PC.NURSE ---
Addendum entered by Syl Ulloa RN 07/18/22 04:20: Remains in Airborne/Contact Isolation for COVID-19. Original Note: Pt appears to have rested really well this shift. She has remained on bipap since approx 2030 with the exception of taking it off to have a snack around 0000. Pt has tolerated the bipap well. LS dminished t/o. Denies any SOA or CP, only complains of mild WEINER. Remains in NSR on telemetry. VSS. Has beed voiding per BSC with standby assist. No bm noted this shift. No acute distress or complaints noted. Call light within reach, will continue to monitor.
[2022-07-18 06:45] LABS: Chloride 106 mmol/L (98-107); Potassium 3.8 mmoL/L (3.5-5.1); Sodium 144 mmol/L (136-145)
[2022-07-18 06:47] LABS: Alanine Aminotransferase 15 U/L (12-78); Aspartate Amino Transferase 20 U/L (14-36); Blood Urea Nitrogen 19 mg/dl (7-17); Creatinine Clearance Estimated 138 mL/min (50-200); Estimated Glomerular Filt Rate 163 ml/min (>60); GFR (African American) 197 ML/MIN (>60)
[2022-07-18 06:48] LABS: Albumin Level 3.2 g/dl (3.5-5.0); Albumin/Globulin Ratio 1.5 (1.1-1.8); Alkaline Phosphatase 34 U/L (38-126); Anion Gap 3.8 mEq/L (5-15); Bilirubin,Total 0.2 mg/dl (0.2-1.3); Calcium 8.2 mg/dl (8.4-10.2); Carbon Dioxide 38 mmol/L (22.0-30.0); Globulin 2.2 g/dL (1.3-3.2); Glucose 104 mg/dl (74-100); Total Protein,Serum 5.4 g/dl (6.3-8.2)
--- NOTE | 2022-07-18 09:38 | EXP.PULM.PN ---
Subjective *Date: 07/18/22 *Time: 10:37 Interval history: No acute respiratory events overnight. Patient denies any new respiratory complaints. Pulmonology Exam Inpatient Vital signs and Labs for Last 24 Hours: Temp Pulse Resp BP Pulse Ox FiO2 98.4 F 95 H 20 108/64 L 97 30 07/18/22 08:00 07/18/22 08:00 07/18/22 08:00 07/18/22 08:00 07/18/22 08:00 07/18/22 02:03 Laboratory Results - last 24 hr 07/18/22 05:33: Sodium 144, Potassium 3.8, Chloride 106, Carbon Dioxide 38 H, Anion Gap 3.8 L, BUN 19 H, Creatinine 0.40 L, Estimated Creat Clear 138, Estimated GFR 163, Est GFR ( Amer) 197 D, Glucose 104 H, Calcium 8.2 L, Total Bilirubin 0.2, AST 20, ALT 15, Alkaline Phosphatase 34 L, Total Protein 5.4 L, Albumin 3.2 L, Globulin 2.2, Albumin/Globulin Ratio 1.5 I & O for Labs for Last 24 Hours: Intake & Output 07/15/22 07/16/22 07/17/22 07/18/22 23:59 23:59 23:59 23:59 Intake Total 1845 / 1845 1590 / 1590 2060 / 2140 320 / 320 Output Total 1450 / 1450 1650 / 1750 700 / 900 600 / 600 Balance 395 / 395 -60 / -160 1360 / 1240 -280 / -280 Weight 138 lb 8 oz 135 lb 4 oz 132 lb 11.2 oz 129 lb 3.017 oz Microbiology Reports for the Last 24 Hours: Microbiology 07/12/22 10:10 Blood Blood Culture - Final NO GROWTH AFTER 5 DAYS 07/12/22 10:10 Blood Blood Culture - Final NO GROWTH AFTER 5 DAYS Constitutional: Present moderate distress Head: Present normocephalic and atraumatic ENT: Present normal exam, normal oropharynx and mucous membranes moist Neck: Present normal inspection and full ROM Respiratory: Present respiratory distress; Absent accessory muscle use, patient mechanically ventilated, wheezes, diminished air movement or able to speak in complete sentences Cardiac: Present S1/S2, Tachycardia and radial pulses present GI: Present soft and distention; Absent tenderness or guarding Rectal (female): Present deferred (female): Present deferred Skin: Present intact; Absent cyanosis or jaundice Neuro: Present alert and awake; Absent oriented x 3 Extremities: Present normal inspection; Absent clubbing or cyanosis Psychiatric: Present normal affect and cooperative Assessment and Plan *Assessment and plan (1) Acute on chronic respiratory failure with hypoxia and hypercapnia: Status: Acute Category: Medical Code(s): J96.21 - Acute and chronic respiratory failure with hypoxia; J96.22 - Acute and chronic respiratory failure with hypercapnia (2) COVID-19: Status: Acute Category: Medical Code(s): U07.1 - COVID-19 (3) COPD exacerbation: Status: Acute Category: Medical Code(s): J44.1 - Chronic obstructive pulmonary disease with (acute) exacerbation Plan #Acute on chronic hypoxic hypercarbic respiratory failure: #COPD exacerbation: #COVID-19 pneumonia: Ms. Aviles is a 61-year-old female COPD greater than [id number] smoking on long-term oxygen therapy at 2 L on triple inhaler therapy at home was brought to the hospital by EMS owing to worsening respiratory status and altered mentation. No evidence of leukocytosis on admission. COVID-19 PCR positive ABG done which showed severe hypercarbic respiratory failure with a pH of 7.08 and PCO2 172. CTA from admission did not show any evidence of pulmonary embolism. No dense consolidation/groundglass opacities noted. She initially received aggressive limitations Of BiPAP That Improved Her Hypercarbic Respiratory Failure in Mentation. PT and OT Evaluated, Recommended Acute Rehab. She completed 5-day course of antibiotics, remdesivir and dexamethasone. Blood cultures negative. Interval Update: Patient appears to be in respiratory distress. She just underwent physical therapy. Saturations 88% on 1 L. Recommend to use oxygen at 2-4 with exertion while she is undergoing acute rehab to maintain O2 saturation goal of 90% and above Plan: -Continue nasal supplementati
--- NOTE | 2022-07-18 09:40 | XR_ITS ---
FINAL REPORT CLINICAL HISTORY: repeat exam/soa COMPARISON: 07/12/2022 FINDINGS: A single portable view of the chest was obtained. The heart size and pulmonary vascularity are within normal limits. The mediastinum is within normal limits. The lungs are hyperinflated which is consistent with COPD. The bony thorax is intact. IMPRESSION: No acute cardiopulmonary process. Reviewed, Interpreted and Dictated by Adriel Root III, MD Transcribed by Lian Card Authenticated and [facility]
--- NOTE | 2022-07-18 16:41 | EXP.ACUTE.PN ---
Subjective *Date: 07/18/22 *Time: 16:48 Interval history: Pleasant on interview today. Tolerating supplemental oxygen. Desatted when weaned yesterday. Tolerating 2 to 4 L of oxygen. Has to increase to 4 with exertion. Tolerating BiPAP at night. Still remains quite weak and needing assistance to walk and get out of bed. Denies any fever, nausea, chest pain, vomiting. Medical Exam Vital signs and Labs for Last 24 Hours: Vital Signs Temp Pulse Pulse Resp BP Pulse Ox FiO2 07/18/22 16:00 98.4 F 77 21 99/63 L 97 07/18/22 16:00 97 07/18/22 16:00 80 07/18/22 12:00 90 07/18/22 11:40 97.9 F 83 22 117/69 96 07/18/22 11:16 94 H 07/18/22 11:16 93 H 07/18/22 08:00 86 07/18/22 08:00 95 H 97 07/18/22 08:00 97 07/18/22 08:00 98.4 F 95 H 20 108/64 L 97 07/18/22 05:40 75 07/18/22 05:40 78 07/18/22 05:40 100 07/18/22 04:00 98.3 F 86 22 118/74 95 07/18/22 00:00 80 07/18/22 04:00 70 07/18/22 02:03 30 07/18/22 00:00 69 22 110/66 100 07/17/22 23:13 67 07/17/22 23:13 65 07/17/22 23:13 30 07/17/22 20:00 80 07/17/22 20:22 30 07/17/22 20:00 98.1 F 92 H 26 H 111/71 94 L 07/17/22 20:00 18 91 L 07/17/22 18:34 79 07/17/22 18:34 74 07/17/22 18:34 95 Intake and Output 07/18/22 07/18/22 07/18/22 07:59 15:59 23:59 Intake Total 80 / 500 420 / 500 Output Total 600 / 1600 1000 / 1600 0 / 1600 Balance -520 / -1100 -580 / -1100 0 / -1100 Intake: Intake, Oral Amount 80 / 500 420 / 500 Output: Output, Urine Amount 600 / 1600 1000 / 1600 0 / 1600 Other: Number of Voids 0 0 Number of Unmeasured Voids 1 Number of Bowel Movements 0 Weight 58.599 kg Patient Weight 07/18/22 23:59 Weight 58.599 kg Laboratory Results - last 24 hr 07/18/22 05:33: Sodium 144, Potassium 3.8, Chloride 106, Carbon Dioxide 38 H, Anion Gap 3.8 L, BUN 19 H, Creatinine 0.40 L, Estimated Creat Clear 138, Estimated GFR 163, Est GFR ( Amer) 197 D, Glucose 104 H, Calcium 8.2 L, Total Bilirubin 0.2, AST 20, ALT 15, Alkaline Phosphatase 34 L, Total Protein 5.4 L, Albumin 3.2 L, Globulin 2.2, Albumin/Globulin Ratio 1.5 I & O for Labs for Last 24 Hours: Intake & Output 07/15/22 07/16/22 07/17/22 07/18/22 23:59 23:59 23:59 23:59 Intake Total 1845 / 1845 1590 / 1590 2060 / 2140 500 / 500 Output Total 1450 / 1450 1650 / 1750 700 / 900 1600 / 1600 Balance 395 / 395 -60 / -160 1360 / 1240 -1100 / -1100 Weight 62.823 kg 61.348 kg 60.192 kg 58.599 kg Constitutional: Present no acute distress, average body habitus and chronically ill appearing Head: Present atraumatic and normocephalic ENT: Present normal exam Neck: Present normal inspection Respiratory: Present wheezes, diminished air movement and normal respiratory effort; Absent accessory muscle use, rhonchi or crackles Cardiac: Present Reg Rate and Rhythm GI: Present soft and normal bowel sounds; Absent tenderness Extremities: Present normal inspection and full ROM Skin: Present intact; Absent erythema Neuro: Present Grossly Intact, alert, awake, oriented x 3 and moves all extremities Comment:: Globally weak Assessment and Plan *Assessment and plan (1) Acute on chronic respiratory failure with hypoxia and hypercapnia: Status: Acute Category: Medical Code(s): J96.21 - Acute and chronic respiratory failure with hypoxia; J96.22 - Acute and chronic respiratory failure with hypercapnia (2) Acute heart failure with preserved ejection fraction: Status: Acute Category: Medical Code(s): I50.31 - Acute diastolic (congestive) heart failure (3) Encephalopathy acute: Status: Resolved Category: Medical Code(s): G93.40 - Encephalopathy, unspecified (4) Acute kidney injury: Status: Resolved Category
[2022-07-18 17:12] LABS: Coronavirus 19, PCR Not Detected (NotDetected); Influenza A, PCR Not Detected (NotDetected); Influenza B, PCR Not Detected (NotDetected)
--- NOTE | 2022-07-18 17:43 | PC.NURSE ---
Patient has been up to chair off and on this shift. she ate supper sitting on the side of the bed. pt has tolerated being on 1 lpm/nc well. c/o slight WEINER, but was able to recover easily and quickly. lungs are diminished throughout, more in the left than the right ann. bowel sounds are active in all quads. pt had a BM this shift. pt is alert and oriented. she is able to ambulate but was noted to by unsteady on her feet this shift. she was noted to stumble when ambulating to the restroom, pt was able to recover with assistance from staff.
--- NOTE | 2022-07-18 17:47 | PC.NURSE ---
notified Dr Bermeo at this time that pt COVID swab is negative.
--- NOTE | 2022-07-18 20:14 | PC.NURSE ---
spoke with SERA Loja regarding pt. taking metoprolol. pt. BP is 98/51 and HR is 84, pt. states she does not take this medication at home. [facility] said to hold medication at this time.
[2022-07-19] VITALS (15 sets, daily range): BP systolic 70–125; BP diastolic 40–72; PULSE 62–90; RESP 18–22; TEMP 36.3–36.9; O2SAT 90–100; BMI 22.8
[2022-07-19 06:20] LABS: Chloride 102 mmol/L (98-107)
[2022-07-19 06:21] LABS: Sodium 139 mmol/L (136-145)
[2022-07-19 06:23] LABS: Alanine Aminotransferase 19 U/L (12-78); Alkaline Phosphatase 34 U/L (38-126); Aspartate Amino Transferase 28 U/L (14-36); Basophils % 0.7 % (0.1-2.0); Bilirubin,Total 0.2 mg/dl (0.2-1.3); Blood Urea Nitrogen 24 mg/dl (7-17); Carbon Dioxide 38 mmol/L (22.0-30.0); Creatinine Clearance Estimated 117 mL/min (50-200); Eosinophils # 0.2 K/mm3 (0.0-0.4); Eosinophils % 3.4 % (0.1-12.0); Estimated Glomerular Filt Rate 126 ml/min (>60); GFR (African American) 152 ML/MIN (>60); Hematocrit 31.5 % (37.0-47.0); Hemoglobin 9.8 g/dL (12.2-16.2); Lymphocytes # 2.1 K/mm3 (0.7-4.5); Mean Corpuscular HGB Conc 31.2 g/dL (31.8-35.4); Mean Corpuscular Hemoglobin 29.9 pg (27.0-31.2); Mean Corpuscular Volume 95.7 fl (81-99); Mean Platelet Volume 9.3 fl (7.4-10.4); Monocytes # 0.5 K/mm3 (0.1-1.0); Monocytes % 8.1 % (1.7-9.3); Neutrophils # 3.2 K/mm3 (1.8-7.8); Neutrophils % 52.8 % (37.0-80.0); Platelet Count 188 K/mm3 (142-424); Red Cell Distribution Width 13.5 % (11.5-17.5)
[2022-07-19 06:24] LABS: Albumin Level 3.2 g/dl (3.5-5.0); Albumin/Globulin Ratio 1.6 (1.1-1.8); Calcium 8.2 mg/dl (8.4-10.2); Glucose 163 mg/dl (74-100); Total Protein,Serum 5.2 g/dl (6.3-8.2)
--- NOTE | 2022-07-19 07:53 | EXP.DC.SUM ---
General Admission date:: 07/12/22 Discharge date: 07/19/22 HPI HPI HPI: The patient is a 61-year-old female who presents to [facility] emergency department accompanied by her Sister Faustina Delacruz who provides the history. The patient lives with her sister Faustina. Faustina identifies herself as decision-maker and POA. Faustina reports that she found the patient on the floor this morning and not responding to commands so EMS was called. EMS arrived and identified respiratory failure with verbal ability and opening eyes but not following commands. The patient's past medical history is significant for COPD on home O2 5 L via nasal cannula, chronic benzodiazepine therapy for generalized anxiety disorder, COVID?13 November 2021 and hypertension. Faustina reports that the patient has not experienced any recent chest pain, palpitations, confusion or acute dyspnea. She was in her usual state of health until events identified this morning. She reports that her sister is down to smoking 1 to 2 cigarettes a day. In the ED an ABG identified a pH of 7.08 PCO2 of 171.6 and PO2 59 on room air. Chest imaging and other studies are pending. An echocardiogram from October 2021 identified an EF of 55%. A CTA of the chest from November 2021 identified COPD. Pulmonology and cardiology are due to see the patient. Hospital Course Hospital Course Hospital Course: This is a 61-year-old female who presents to the emergency department with encephalopathic state and ED evaluation identified acute on chronic hypercapnia and hypoxemia.? She has been started on BiPAP therapy and her mental status is improving.? Problems addressed are as follows: Acute on chronic respiratory failure with hypercapnia and hypoxia COPD exacerbation Aspiration pneumonia COVID-19 Presented with respiratory failure and severe hypercapnia. Started on BiPAP with significant improvement. Pulmonology consulted during admission. Patient to follow-up with pulmonology after discharge. Patient has completed 5 days of antibiotics for pneumonia, 5 days of dexamethasone and remdesivir for COVID. Continuing to have oxygen requirement of 2 to 4 L continuously. Will continue to require BiPAP as well. Continue with settings as follows: BiPAP at night or while sleeping. Setting of 20/8, respiratory rate 18, FiO2 35%. Will need BiPAP when she goes home due to recurrent hypercapnia at night. -Recommend continuing DuoNebs every 6 hours and budesonide twice daily. Patient stable for discharge to nursing facility for continued rehab and respiratory support. At this time she is day 8 post diagnosis of COVID with PCR on admission. Repeat PCR obtained on 07/18 is negative for COVID. Will defer isolation protocol to [facility] facility based on their standards. Acute encephalopathy Resolved. Metabolic source identified with [id number]. Back to baseline mentation. PCO2 58 as of 07/15. pH normal at 7.4. Achieving adequate control of hypercapnia with use of BiPAP. Will need to continue to wear BiPAP nightly indefinitely. Acute HFpEF Hypertension Echocardiogram (10/2021) with EF 55%. Continue GARRY inhibitor and beta-magaly therapy. Started on Jardiance. Continue at this time. No other changes to medications. Condition stable. Acute kidney injury Resolved, Baseline creatinine 0.5. Stable for the past 48 hours prior to discharge. Recommend repeat labs in a week to monitor stability of kidney function. Avoid NSAIDs. Generalized anxiety disorder Chronically prescribed benzodiazepine therapy. Continue clonazepam twice a day. Continue SSI therapy as ordered. Medically stable for discharge to skilled nursing for PT and OT. Patient at high risk for readmission without continued therapy to improve strength and mobility prior to getting home. Patient has close follow-up scheduled with pulmonology. Spent 40 minutes in discharge counseling and direct care with patient. Exam Data for Last 24 hours Vital signs and L
--- NOTE | 2022-07-19 11:17 | PC.NURSE ---
talked to care management, still waiting on bipap to be delivered to sn[facility].
--- NOTE | 2022-07-19 12:15 | EXP.PULM.PN ---
Subjective *Date: 07/19/22 *Time: 12:15 Interval history: No acute respiratory events overnight. Admits continued improvement in her respiratory symptoms. Denies any new respiratory complaints. Pulmonology Exam Inpatient Vital signs and Labs for Last 24 Hours: Temp Pulse Resp BP Pulse Ox FiO2 98.3 F 77 18 116/72 97 30 07/19/22 11:23 07/19/22 11:39 07/19/22 11:23 07/19/22 11:23 07/19/22 11:23 07/18/22 23:16 Laboratory Results - last 24 hr 07/18/22 17:01: SARS-CoV-2 (PCR) Not detected, Influenza A Untype (PCR) Not detected, Influenza Type B (PCR) Not detected 07/19/22 05:32: WBC 6.0, RBC 3.30 L, Hgb 9.8 L, Hct 31.5 L, MCV 95.7, MCH 29.9, MCHC 31.2 L, RDW 13.5, Plt Count 188, MPV 9.3, Neut % (Auto) 52.8, Lymph % (Auto) 35.0, [place] % (Auto) 8.1, Eos % (Auto) 3.4, Baso % (Auto) 0.7, Neut # (Auto) 3.2, Lymph # (Auto) 2.1, [place] # (Auto) 0.5, Eos # (Auto) 0.2, Baso # (Auto) 0.0 07/19/22 05:32: Magnesium 2.0 07/19/22 05:32: Sodium 139, Potassium 4.0, Chloride 102, Carbon Dioxide 38 H, Anion Gap 3.0 L, BUN 24 H D, Creatinine 0.50 L D, Estimated Creat Clear 117, Estimated GFR 126, Est GFR ( Amer) 152 D, Glucose 163 H D, Calcium 8.2 L, Total Bilirubin 0.2, AST 28 D, ALT 19 D, Alkaline Phosphatase 34 L, Total Protein 5.2 L, Albumin 3.2 L, Globulin 2.0, Albumin/Globulin Ratio 1.6 I & O for Labs for Last 24 Hours: Intake & Output 07/16/22 07/17/22 07/18/22 07/19/22 23:59 23:59 23:59 23:59 Intake Total 1590 / 1590 2060 / 2140 500 / 500 240 / 240 Output Total 1650 / 1750 700 / 900 2200 / 2200 100 / 100 Balance -60 / -160 1360 / 1240 -1700 / -1700 140 / 140 Weight 135 lb 4 oz 132 lb 11.2 oz 129 lb 3.017 oz 137 lb Microbiology Reports for the Last 24 Hours: Microbiology 07/12/22 10:10 Blood Blood Culture - Final NO GROWTH AFTER 5 DAYS 07/12/22 10:10 Blood Blood Culture - Final NO GROWTH AFTER 5 DAYS Constitutional: Present mild distress Head: Present normocephalic and atraumatic ENT: Present normal exam, normal oropharynx and mucous membranes moist Neck: Present normal inspection and full ROM Respiratory: Present respiratory distress and able to speak in complete sentences; Absent accessory muscle use, patient mechanically ventilated, wheezes or diminished air movement Cardiac: Present S1/S2, Tachycardia and radial pulses present GI: Present soft and distention; Absent tenderness or guarding Rectal (female): Present deferred (female): Present deferred Skin: Present intact; Absent cyanosis or jaundice Neuro: Present alert and awake; Absent oriented x 3 Extremities: Present normal inspection; Absent clubbing or cyanosis Psychiatric: Present normal affect and cooperative Assessment and Plan *Assessment and plan (1) Acute on chronic respiratory failure with hypoxia and hypercapnia: Status: Acute Category: Medical Code(s): J96.21 - Acute and chronic respiratory failure with hypoxia; J96.22 - Acute and chronic respiratory failure with hypercapnia (2) COVID-19: Status: Acute Category: Medical Code(s): U07.1 - COVID-19 (3) COPD exacerbation: Status: Acute Category: Medical Code(s): J44.1 - Chronic obstructive pulmonary disease with (acute) exacerbation Plan #Acute on chronic hypoxic hypercarbic respiratory failure: #COPD exacerbation: #COVID-19 pneumonia: Ms. Aviles is a 61-year-old female COPD greater than [id number] smoking on long-term oxygen therapy at 2 L on triple inhaler therapy at home was brought to the hospital by EMS owing to worsening respiratory status and altered mentation. No evidence of leukocytosis on admission. COVID-19 PCR positive ABG done which showed severe hypercarbic respiratory failure with a pH of 7.08 and PCO2 172. CTA from admission did not show any evidence of pulmonary embolism. No dense consolidation/groundglass opacities noted. She initially received aggressiv
--- NOTE | 2022-07-19 15:14 | EXP.ACUTE.PN ---
Subjective *Date: 07/19/22 *Time: 15:14 Interval history: No acute events. Wore BiPAP without difficulty. Labs this morning stable. Tolerating p.o. intake. Requiring 2 to 4 L throughout the day, increased oxygen requirement with exertion. Still quite weak on her legs. Will stumble without assistive devices. Able to ambulate to the bathroom with standby assistance. Medical Exam Vital signs and Labs for Last 24 Hours: Vital Signs Temp Pulse Pulse Resp BP Pulse Ox FiO2 07/19/22 12:00 71 07/19/22 11:39 77 07/19/22 11:39 75 07/19/22 11:23 98.3 F 89 18 116/72 97 07/19/22 08:00 88 07/19/22 07:20 98.5 F 66 19 125/71 98 07/19/22 05:50 85 07/19/22 05:50 87 07/19/22 05:50 100 07/19/22 04:00 90 07/19/22 04:00 97.9 F 80 20 88/59 L 97 07/19/22 00:00 98 07/19/22 00:00 90 07/18/22 23:57 97.8 F 84 20 92/57 L 98 07/18/22 23:16 30 07/18/22 23:16 76 07/18/22 23:15 77 07/18/22 20:00 80 07/18/22 19:36 98.3 F 84 20 98/51 L 95 07/18/22 18:18 81 07/18/22 18:18 80 07/18/22 18:18 100 07/18/22 16:00 98.4 F 77 21 99/63 L 97 07/18/22 16:00 97 07/18/22 16:00 80 Intake and Output 07/18/22 07/19/22 07/19/22 23:59 07:59 15:59 Intake Total 240 / 720 480 / 720 Output Total 600 / 2200 100 / 100 0 / 100 Balance -600 / -1700 140 / 620 480 / 620 Intake: Intake, Oral Amount 240 / 720 480 / 720 Output: Output, Urine Amount 600 / 2200 100 / 100 0 / 100 Other: Number of Voids 0 Number of Unmeasured Voids 0 1 1 Number of Bowel Movements 1 Weight 62.142 kg Patient Weight 07/19/22 23:59 Weight 62.142 kg Laboratory Results - last 24 hr 07/18/22 17:01: SARS-CoV-2 (PCR) Not detected, Influenza A Untype (PCR) Not detected, Influenza Type B (PCR) Not detected 07/19/22 05:32: WBC 6.0, RBC 3.30 L, Hgb 9.8 L, Hct 31.5 L, MCV 95.7, MCH 29.9, MCHC 31.2 L, RDW 13.5, Plt Count 188, MPV 9.3, Neut % (Auto) 52.8, Lymph % (Auto) 35.0, [place] % (Auto) 8.1, Eos % (Auto) 3.4, Baso % (Auto) 0.7, Neut # (Auto) 3.2, Lymph # (Auto) 2.1, [place] # (Auto) 0.5, Eos # (Auto) 0.2, Baso # (Auto) 0.0 07/19/22 05:32: Magnesium 2.0 07/19/22 05:32: Sodium 139, Potassium 4.0, Chloride 102, Carbon Dioxide 38 H, Anion Gap 3.0 L, BUN 24 H D, Creatinine 0.50 L D, Estimated Creat Clear 117, Estimated GFR 126, Est GFR ( Amer) 152 D, Glucose 163 H D, Calcium 8.2 L, Total Bilirubin 0.2, AST 28 D, ALT 19 D, Alkaline Phosphatase 34 L, Total Protein 5.2 L, Albumin 3.2 L, Globulin 2.0, Albumin/Globulin Ratio 1.6 I & O for Labs for Last 24 Hours: Intake & Output 07/16/22 07/17/22 07/18/22 07/19/22 23:59 23:59 23:59 23:59 Intake Total 1590 / 1590 2060 / 2140 500 / 500 720 / 720 Output Total 1650 / 1750 700 / 900 2200 / 2200 100 / 100 Balance -60 / -160 1360 / 1240 -1700 / -1700 620 / 620 Weight 61.348 kg 60.192 kg 58.599 kg 62.142 kg Constitutional: Present no acute distress, average body habitus and chronically ill appearing Head: Present atraumatic and normocephalic ENT: Present normal exam Neck: Present normal inspection Respiratory: Present wheezes, diminished air movement and normal respiratory effort; Absent accessory muscle use, rhonchi or crackles Cardiac: Present Reg Rate and Rhythm GI: Present soft and normal bowel sounds; Absent tenderness Extremities: Present normal inspection and full ROM Skin: Present intact; Absent erythema Neuro: Present Grossly Intact, alert, awake, oriented x 3 and moves all extremities Comment:: Globally weak Assessment and Plan *Assessment and plan (1) Acute on chronic respiratory failure with hypoxia and hypercapnia: Status: Acute Category: Medical Code(s): J96.21 - Acute and chronic respiratory failure with hypoxia; J96.22 - Acute and chronic respiratory failure with hypercapnia (2) Acute heart fa
--- NOTE | 2022-07-19 18:45 | PC.NURSE ---
PT HAD ONE EPISODE OF HYPOTENSION THIS SHIFT, 500ML FLUID BOLUS GIVEN BP UP TO 111/66. PT C/O OF EAR ACHE AND HEAD ACHE, TREATED PER JUL. PT SHOULD BE LEAVING TOMORROW MORNING TO GO TO SNF. NO CONCERNS AT THIS TIME.
--- NOTE | 2022-07-19 20:04 | PC.NURSE ---
Pharmacy called about a drug that isn't stocked at the moment. He said he will call Divya who lives closer to the hospital and call me back.
--- NOTE | 2022-07-19 23:08 | PC.NURSE ---
pt. bp off P: 77 no symptoms noted. WEBBING INSPECTOR aware and we will keep on monitoring.
[2022-07-20] VITALS (7 sets, daily range): BP systolic 77–130; BP diastolic 36–70; PULSE 77–120; RESP 18–24; TEMP 36.5–36.9; O2SAT 92–97; BMI 22.8
--- NOTE | 2022-07-20 10:47 | EXP.PULM.PN ---
Subjective *Date: 07/20/22 *Time: 10:47 Interval history: No acute respiratory vents overnight. Denies any new respiratory complaints. Pulmonology Exam Inpatient Vital signs and Labs for Last 24 Hours: Temp Pulse Resp BP Pulse Ox FiO2 98.4 F 113 H 24 130/68 92 L 30 07/20/22 07:17 07/20/22 07:17 07/20/22 07:17 07/20/22 07:17 07/20/22 07:17 07/20/22 02:32 I & O for Labs for Last 24 Hours: Intake & Output 07/17/22 07/18/22 07/19/22 07/20/22 23:59 23:59 23:59 23:59 Intake Total 2060 / 2140 500 / 500 960 / 960 240 / 240 Output Total 700 / 900 2200 / 2200 100 / 100 0 / 0 Balance 1360 / 1240 -1700 / -1700 860 / 860 240 / 240 Weight 132 lb 11.2 oz 129 lb 3.017 oz 137 lb 137 lb Microbiology Reports for the Last 24 Hours: Microbiology 07/12/22 10:10 Blood Blood Culture - Final NO GROWTH AFTER 5 DAYS 07/12/22 10:10 Blood Blood Culture - Final NO GROWTH AFTER 5 DAYS Constitutional: Present no acute distress Head: Present normocephalic and atraumatic ENT: Present normal exam, normal oropharynx and mucous membranes moist Neck: Present normal inspection and full ROM Respiratory: Present able to speak in complete sentences; Absent accessory muscle use, patient mechanically ventilated, respiratory distress, wheezes or diminished air movement Cardiac: Present S1/S2, Tachycardia and radial pulses present GI: Present soft and distention; Absent tenderness or guarding Rectal (female): Present deferred (female): Present deferred Skin: Present intact; Absent cyanosis or jaundice Neuro: Present alert and awake; Absent oriented x 3 Extremities: Present normal inspection; Absent clubbing or cyanosis Psychiatric: Present normal affect and cooperative Assessment and Plan *Assessment and plan (1) Acute on chronic respiratory failure with hypoxia and hypercapnia: Status: Acute Category: Medical Code(s): J96.21 - Acute and chronic respiratory failure with hypoxia; J96.22 - Acute and chronic respiratory failure with hypercapnia (2) COVID-19: Status: Acute Category: Medical Code(s): U07.1 - COVID-19 (3) COPD exacerbation: Status: Acute Category: Medical Code(s): J44.1 - Chronic obstructive pulmonary disease with (acute) exacerbation Plan #Acute on chronic hypoxic hypercarbic respiratory failure: #COPD exacerbation: #COVID-19 pneumonia: Ms. Aviles is a 61-year-old female COPD greater than [id number] smoking on long-term oxygen therapy at 2 L on triple inhaler therapy at home was brought to the hospital by EMS owing to worsening respiratory status and altered mentation. No evidence of leukocytosis on admission. COVID-19 PCR positive ABG done which showed severe hypercarbic respiratory failure with a pH of 7.08 and PCO2 172. CTA from admission did not show any evidence of pulmonary embolism. No dense consolidation/groundglass opacities noted. She initially received aggressive limitations Of BiPAP That Improved Her Hypercarbic Respiratory Failure in Mentation. PT and OT Evaluated, Recommended Acute Rehab. She completed 5-day course of antibiotics, remdesivir and dexamethasone. Blood cultures negative. Repeat COVID-19 PCR resulted negative from 07/19/21. Stable respiratory status. Awaiting acute rehab placement. Plan: -Continue nasal supplementation as needed at rest and 2-4L with exertion to maintain O2 saturation goal of 90% and above. -Continue BiPAP at night/while during sleep at 20/8, RR 18 and FiO2 of 35%. (Patient is having recurrent hypercarbic respiratory failure secondary to COPD needing noninvasive ventilator therapy/BiPAP. Her hypercarbic respiratory failure is less likely from sleep apnea.) -DuoNebs every 6 hours scheduled and budesonide every 12 scheduled, continue this treatment upon discharge until patient follows in the pulmonary clinic Thank you for involving pulmonary in this patient
--- NOTE | 2022-07-20 12:08 | PC.NURSE ---
Report called to Carolina at [facility], EMS notified of need for transport
== END 2022-07-20 13:08 | disposition short-term general hospital (02) | DRG 177 ==
LOC: ER 10:39 → 2ND 11:51
PROVIDERS: Internal Medicine Adolescent Medicine; Internal Medicine Pulmonary Disease; Nurse Practitioner Acute Care; Admitting Provider Family Medicine; Emergency Provider Emergency Medicine; PCP Emergency Medicine; Visit Provider Family Medicine
DX: G93.41 Metabolic encephalopathy (principal); U07.1 COVID-19; I50.31 Acute diastolic (congestive) heart failure; J96.21 Acute and chronic respiratory failure with hypoxia; J96.22 Acute and chronic respiratory failure with hypercapnia; N17.9 Acute kidney failure, unspecified; J44.1 Chronic obstructive pulmonary disease with (acute) exacerbation; J44.0 Chronic obstructive pulmonary disease with (acute) lower respiratory infection; Z79.899 Other long term (current) drug therapy; Z99.81 Dependence on supplemental oxygen; F17.210 Nicotine dependence, cigarettes, uncomplicated; I11.0 Hypertensive heart disease with heart failure; E87.5 Hyperkalemia; F41.1 Generalized anxiety disorder
CPT/HCPCS: 36415; 51702; 70450; 71045; 71275; 74177; 80048; 80053; 80305; 81001; 82140; 82803; 82962; 83605; 83735; 83880; 84145; 84436; 84443; 84479; 84484; 85007; 85025; 85378; 87040; 93005; 94640; 94660; 94761; 97110; 97116; 97163; 97166; 97530; 99291; C9803; J0456; J0696; Q9967; U0003; U0005

== ENCOUNTER 2022-09-17 21:24 | Emergency (ER) | payer MEDICARE, SELFPAY ==
[2022-09-17 21:24] VITALS: BP 168/108; PULSE 109; RESP 18; TEMP 36.9; O2SAT 98; BMI 22.9
[2022-09-17 21:30] VITALS: BP 163/103; PULSE 102; RESP 18; O2SAT 100
--- NOTE | 2022-09-17 21:30 | CT_ITS ---
PROCEDURE INFORMATION: Exam: CT Abdomen And Pelvis With Contrast Exam date and time: 09/17/2022 10:09 PM Age: 61 years old Clinical indication: Abdominal pain; Additional info: Abd pain TECHNIQUE: Imaging protocol: Computed tomography of the abdomen and pelvis with contrast. Radiation optimization: All CT scans at this facility use at least one of these dose optimization techniques: automated exposure control; mA and/or kV adjustment per patient size (includes targeted exams where dose is matched to clinical indication); or iterative reconstruction. Contrast material: ISOVUE; Contrast volume: 75 ml; Contrast route: IV; REPORTING DATA: Count of CT and Cardiac NM exams in prior 12 months: This patient has received 9 known CTs and 0 known cardiac nuclear medicine studies in the 12 months prior to the current study. COMPARISON: CT ABDOMEN PELVIS W CON 07/12/2022 12:35 PM FINDINGS: Tubes, catheters and devices: None noted. Lungs: Lung bases appear clear. Heart: No significant coronary calcifications. No cardiomegaly. No significant pericardial effusion. Liver: Normal. No mass. Gallbladder and bile ducts: Cholecystectomy. No ductal dilation. Pancreas: Normal. No ductal dilation. Spleen: Normal. No splenomegaly. Adrenal glands: Normal. No mass. Kidneys and ureters: Normal. No hydronephrosis. Stomach and bowel: Unremarkable. No obstruction. No mucosal thickening. Appendix: No evidence of appendicitis. Intraperitoneal space: Unremarkable. No free air. No significant fluid collection. Retroperitoneal space: No significant retroperitoneal inflammatory changes are noted. Vasculature: Unremarkable. No abdominal aortic aneurysm. Lymph nodes: Unremarkable. No enlarged lymph nodes. Urinary bladder: Unremarkable as visualized. Reproductive: Hysterectomy. Bones/joints: Unremarkable. No acute fracture. Soft tissues: Unremarkable. IMPRESSION: 1. No acute findings. 2. Cholecystectomy. 3. Hysterectomy.
--- NOTE | 2022-09-17 21:30 | XR_ITS ---
PROCEDURE INFORMATION: Exam: XR Chest Exam date and time: 09/17/2022 10:16 PM Age: 61 years old Clinical indication: Cough TECHNIQUE: Imaging protocol: Radiologic exam of the chest. Views: 1 view. COMPARISON: CR XR CHEST PORTABLE 07/18/2022 9:47 AM FINDINGS: Lungs: Hyperexpanded. Pleural spaces: Unremarkable. No pleural effusion. No pneumothorax. Heart/Mediastinum: Unremarkable. No cardiomegaly. Bones/joints: Healed rib fractures on the right posterior 7th and 8th ribs. IMPRESSION: Healed rib fractures on the right posterior 7th and 8th ribs.
[2022-09-17 21:40] LABS: Coronavirus 19, PCR Not Detected (NotDetected); Influenza A, PCR Not Detected (NotDetected); Influenza B, PCR Not Detected (NotDetected)
[2022-09-17 21:41] LABS: Basophils # 0.1 K/mm3 (0-0.2); Basophils % 0.9 % (0.1-2.0); Chloride 93 mmol/L (98-107); Eosinophils # 0.1 K/mm3 (0.0-0.4); Eosinophils % 0.8 % (0.1-12.0); Hematocrit 44.8 % (37.0-47.0); Hemoglobin 14.7 g/dL (12.2-16.2); Lymphocytes # 2.1 K/mm3 (0.7-4.5); Mean Corpuscular HGB Conc 32.8 g/dL (31.8-35.4); Mean Corpuscular Hemoglobin 29.9 pg (27.0-31.2); Mean Corpuscular Volume 91.4 fl (81-99); Monocytes # 0.6 K/mm3 (0.1-1.0); Monocytes % 7.3 % (1.7-9.3); Neutrophils # 5.1 K/mm3 (1.8-7.8); Platelet Count 225 K/mm3 (142-424); Potassium 3.4 mmoL/L (3.5-5.1); Red Cell Distribution Width 13.1 % (11.5-17.5); Sodium 138 mmol/L (136-145); White Blood Count 7.9 K/mm3 (4.8-10.8)
[2022-09-17 21:44] LABS: Alanine Aminotransferase 20 U/L (12-78); Albumin Level 4.4 g/dl (3.5-5.0); Albumin/Globulin Ratio 1.5 (1.1-1.8); Alkaline Phosphatase 56 U/L (38-126); Amylase 70 U/L (30-110); Aspartate Amino Transferase 24 U/L (14-36); Bilirubin,Total 0.5 mg/dl (0.2-1.3); Blood Urea Nitrogen 16 mg/dl (7-17); Calcium 9.2 mg/dl (8.4-10.2); Creatinine Clearance Estimated 118 mL/min (50-200); Estimated Glomerular Filt Rate 126 ml/min (>60); GFR (African American) 152 ML/MIN (>60); Glucose 188 mg/dl (74-100); Lipase 48 U/L (23-300); Total Protein,Serum 7.4 g/dl (6.3-8.2)
[2022-09-17 21:52] LABS: Anion Gap 7.4 mEq/L (5-15); Carbon Dioxide 41 mmol/L (22.0-30.0)
[2022-09-17 22:30] VITALS: BP 149/85; PULSE 118; RESP 20; O2SAT 97
--- NOTE | 2022-09-17 22:38 | PC.NURSE ---
PATIENT REPOSITIONED IN BED, CALL LIGHT WITHIN REACH AND LIGHT TURNED OFF
[2022-09-17 23:00] VITALS: BP 167/108; PULSE 107; RESP 22; O2SAT 99
[2022-09-17 23:02] LABS: Microscopic, Urine URINE MICROSCOPIC (MICROSCOPIC)
[2022-09-17 23:09] LABS: Appearance,Urine CLEAR (Clear); Bilirubin,Urine Negative (Negative); Blood, Urine Negative (Negative); Color,Urine YELLOW (Yellow); Glucose,Urine (UA) 3+ (Negative); Ketones,Urine Negative (Negative); Leukocyte Esterase,Urine Negative (Negative); Nitrate,Urine Negative (Negative); PH,Urine 8.5 (5.0-8.5); Protein,Urine TRACE (Negative); Urobilinogen,Urine 0.2 EU/dl (0.2)
[2022-09-17 23:33] LABS: Squamous Epithelial Cell,Urine Occasional #/hpf (0-5); WBC,Urine Occasional #/hpf (0-3)
--- NOTE | 2022-09-17 23:39 | HMH.EDABDPAI ---
Discharge Plan Disposition Patient Disposition: Home, Self-Care Chief Complaint: Abdominal Pain Prescriptions Prescriptions: No Action lisinopril 10 mg tablet 10 mg PO DAILY tizanidine 4 mg capsule 4 mg PO Q6H PRN gabapentin 600 mg tablet 600 mg PO QID 30 Days Qty: 120 2RF clonazepam [Klonopin] 0.5 mg tablet 0.5 mg PO BID 30 Days Qty: 60 2RF fexofenadine 180 mg tablet 180 mg PO DAILY Qty: 30 2RF pantoprazole 40 mg tablet,delayed release (DR/EC) 40 mg PO DAILY Qty: 90 1RF Jardiance 10 mg tablet 10 mg PO DAILY Qty: 30 2RF ipratropium-albuterol 0.5 mg-3 mg(2.5 mg base)/3 mL Solution For Nebulization 3 ml inhalation Q6RT Qty: 0 0RF sertraline 100 mg Tablet 100 mg PO DAILY Qty: 0 0RF montelukast 10 MG tablet 10 mg PO PM Referrals Follow up/Referrals: Provider,Referral, MD [Primary Care Provider] - See instructions Clinical Impressions Clinical Impression: Abdominal pain Instructions Patient Instructions: DI for Acute Abdominal Pain Discharge ED Provider: Salma (ED)Raad Abdominal Pain HPI General Chief Complaint: Abdominal Pain Stated Complaint: N&V Time Seen by Provider: 09/17/22 23:39 Mode of Arrival: EMS Source of Information: Patient, EMS and Medical Record Limitations: No Limitations Description of Symptoms (Recalled from ER Triage Doc. by RN): Pt arrives via ems c c/o nausea and vomiting for the prior 3 days. States that today she vomitted twice, states that she was vomiting at noon today and began to have lower abdominal pain. Pt denies any fever or diarrhea. History of Present Illness HPI narrative: abd pain over the last 4 days with n/v -no fever complaint: abdominal pain Onset (ago): day(s) Consistency: intermittent Location: diffuse Severity: moderate Quality: sharp Associated symptoms: denies other symptoms Related Data Home Medications Medication Instructions Recorded Confirmed montelukast 10 mg tablet 10 mg PO PM ALLERGIES 12/04/21 08/30/22 lisinopril 10 mg tablet 10 mg PO DAILY 08/30/22 08/30/22 tizanidine 4 mg capsule 4 mg PO Q6H PRN 08/30/22 08/30/22 Previous Rx's Medication Instructions Recorded ipratropium 0.5 mg-albuterol 3 mg 3 ml inhalation Q6RT #0 mL 07/18/22 (2.5 mg base)/3 mL nebulization soln sertraline 100 mg tablet 100 mg PO DAILY #0 tabs 07/18/22 clonazepam 0.5 mg tablet (Klonopin) 0.5 mg PO BID Anxiety 30 days #60 08/30/22 tabs empagliflozin 10 mg tablet 10 mg PO DAILY #30 tabs 08/30/22 (Jardiance) fexofenadine 180 mg tablet 180 mg PO DAILY Allergy symptoms 08/30/22 #30 tabs gabapentin 600 mg tablet 600 mg PO QID 30 days #120 tabs 08/30/22 pantoprazole 40 mg tablet,delayed 40 mg PO DAILY #90 tabs 08/30/22 release Allergies Allergy/AdvReac Type Severity Reaction Status Date / Time hydrocodone Allergy Severe cant breath Verified 08/30/22 14:21 [From Panlor (hydrocodone-acetamin)] Penicillins Allergy Unknown Unknown Verified 08/30/22 14:21 allergy reaction PFSH [facility] Disclaimer: The information contained in this section may have been updated after the patient was seen, as this information can be updated by other users. Medical History (Updated 09/18/22 @ 04:22 by Raad Marsh (MD GYPSY) Chronic hypercapnic respiratory failure Chronically on benzodiazepine therapy COPD (chronic obstructive pulmonary disease) COPD exacerbation COVID-19 COVID-19 virus infection Generalized anxiety disorder GERD (gastroesophageal reflux disease) Hypertension Surgical History History of cholecystectomy History of colonoscopy History of esophagogastroduodenoscopy History of hysterectomy Family History Mother Cancer Father Pancreatic cancer Social History (Updated 07/12/22 @ 18:13 by Mendy Henderson RN) Smoking Status:
[2022-09-17 23:42] VITALS: BP 188/113; PULSE 110; RESP 20; O2SAT 98
--- NOTE | 2022-09-17 23:45 | ECG_ITS ---
APPROVED REPORT Exam: Resting ECG HR:97 bpm ECG Measurements Heart Rate 97 AXES NM 156 P 80 QRSd 103 QRS 91 QT 357 T 67 QTc 412 Conclusion SINUS RHYTHM POSSIBLE RIGHT ATRIAL ENLARGEMENT [0.25mV P-WAVE] BORDERLINE RIGHT AXIS DEVIATION [QRS AXIS > 90] BORDERLINE ECG UNCONFIRMED REPORT Electronically signed by : Case Barrios MD 09/18/2022 19:43:53
[2022-09-17 23:49] VITALS: BP 162/101; PULSE 106; RESP 18; O2SAT 98
[2022-09-18] VITALS: BP 154/103; PULSE 100; RESP 20; O2SAT 100
[2022-09-18] LABS: Lactic Acid 1.6 mmol/L (0.7-2.1)
[2022-09-18 00:12] LABS: Troponin I < 0.01 ng/ml (0.00-0.034)
[2022-09-18 00:23] LABS: Troponin I < 0.01 ng/ml (0.00-0.034)
[2022-09-18 00:30] VITALS: BP 162/109; PULSE 99; RESP 18; O2SAT 97
[2022-09-18 01:00] VITALS: BP 146/89; PULSE 96; RESP 18; O2SAT 99
[2022-09-18 02:30] VITALS: PULSE 98; RESP 18; O2SAT 96
[2022-09-18 02:36] VITALS: PULSE 77; PULSE 81
[2022-09-18 03:59] LABS: Troponin I 0.04 ng/ml (0.00-0.034)
[2022-09-18 04:57] VITALS: BP 145/80; PULSE 75; RESP 18; TEMP 36.6; O2SAT 99
== END 2022-09-18 05:00 | disposition home or self-care (01) ==
PROVIDERS: Emergency Provider Emergency Medicine
DX: R10.9 Unspecified abdominal pain (principal); R11.2 Nausea with vomiting, unspecified; F17.210 Nicotine dependence, cigarettes, uncomplicated; R00.0 Tachycardia, unspecified
CPT/HCPCS: 71045; 74177; 80053; 81001; 82150; 83605; 83690; 84484; 85025; 93005; 96360; 96361; 96374; 96375; 96376; 99285; C9803; J0131; J2405; Q9967; U0003; U0005

== ENCOUNTER 2022-09-24 16:40 | Inpatient (IN) | payer MEDICARE, SELFPAY ==
[2022-09-24] VITALS (14 sets, daily range): BP systolic 126–166; BP diastolic 73–102; PULSE 64–106; RESP 12–22; TEMP 36.2–36.5; O2SAT 88–100; BMI 21.9; BMI 21.5
[2022-09-24 16:59] LABS: Basophils % 0.2 % (0.1-2.0); Eosinophils # 0.1 K/mm3 (0.0-0.4); Eosinophils % 0.8 % (0.1-12.0); Hemoglobin 13.9 g/dL (12.2-16.2); Lymphocytes # 0.9 K/mm3 (0.7-4.5); Lymphocytes % 8.4 % (10-50); Mean Corpuscular HGB Conc 31.7 g/dL (31.8-35.4); Mean Corpuscular Hemoglobin 29.6 pg (27.0-31.2); Mean Corpuscular Volume 93.4 fl (81-99); Mean Platelet Volume 8.4 fl (7.4-10.4); Monocytes # 0.3 K/mm3 (0.1-1.0); Monocytes % 2.9 % (1.7-9.3); Neutrophils # 9.3 K/mm3 (1.8-7.8); Neutrophils % 87.7 % (37.0-80.0); Platelet Count 233 K/mm3 (142-424); Red Blood Count 4.71 M/mm3 (4.20-5.40); White Blood Count 10.6 K/mm3 (4.8-10.8)
[2022-09-24 17:01] LABS: MANUAL DIFFERENTIAL MANUAL DIFFERENTIAL (MANUAL DIFF)
[2022-09-24 17:03] LABS: Chloride 95 mmol/L (98-107); Potassium 4.4 mmoL/L (3.5-5.1); Sodium 142 mmol/L (136-145)
--- NOTE | 2022-09-24 17:03 | XR_ITS ---
PROCEDURE INFORMATION: Exam: XR Chest Exam date and time: 09/24/2022 5:42 PM Age: 61 years old Clinical indication: Other: Vomiting; Additional info: Vom TECHNIQUE: Imaging protocol: Radiologic exam of the chest. Views: 1 view. COMPARISON: CR XR CHEST PORTABLE 09/17/2022 10:16 PM FINDINGS: Lungs: Unremarkable. No consolidation. Pleural spaces: Unremarkable. No pleural effusion. No pneumothorax. Heart/Mediastinum: Unremarkable. No cardiomegaly. Bones/joints: Unremarkable. IMPRESSION: No acute findings.
--- NOTE | 2022-09-24 17:03 | CT_ITS ---
PROCEDURE INFORMATION: Exam: CT Abdomen And Pelvis With Contrast Exam date and time: 09/24/2022 5:14 PM Age: 61 years old Clinical indication: Vomiting; Additional info: Vom TECHNIQUE: Imaging protocol: Computed tomography of the abdomen and pelvis with contrast. Radiation optimization: All CT scans at this facility use at least one of these dose optimization techniques: automated exposure control; mA and/or kV adjustment per patient size (includes targeted exams where dose is matched to clinical indication); or iterative reconstruction. Contrast material: ISOVUE; Contrast volume: 75 ml; Contrast route: IV; REPORTING DATA: Count of CT and Cardiac NM exams in prior 12 months: This patient has received 10 known CTs and 0 known cardiac nuclear medicine studies in the 12 months prior to the current study. COMPARISON: CT ABDOMEN PELVIS W CON 09/17/2022 10:09 PM FINDINGS: Liver: Normal. No mass. Gallbladder and bile ducts: The gallbladder is surgically absent. Pancreas: Normal. No ductal dilation. Spleen: Normal. No splenomegaly. Adrenal glands: Normal. No mass. Kidneys and ureters: Normal. No hydronephrosis. Stomach and bowel: There is significant fecal retention throughout colon. No bowel wall thickening or evidence of bowel obstruction. Appendix: No evidence of appendicitis. Intraperitoneal space: Unremarkable. No free air. No significant fluid collection. Vasculature: Moderate atherosclerotic calcification noted throughout the aorta. No evidence of aortic aneurysm or dissection. Lymph nodes: Unremarkable. No enlarged lymph nodes. Urinary bladder: Unremarkable as visualized. Reproductive: The uterus is surgically absent. No adnexal abnormality. Bones/joints: Mild degenerative changes are noted in the lower spine. Moderate degenerative changes noted in the pubic symphysis. No acute fracture. Soft tissues: There is a small midline ventral hernia containing only fat in the upper abdomen. IMPRESSION: Findings of colonic constipation. Other incidental findings as noted.
[2022-09-24 17:06] LABS: Alanine Aminotransferase 17 U/L (12-78); Albumin Level 4.3 g/dl (3.5-5.0); Albumin/Globulin Ratio 1.4 (1.1-1.8); Alkaline Phosphatase 57 U/L (38-126); Aspartate Amino Transferase 22 U/L (14-36); Bilirubin,Total 0.3 mg/dl (0.2-1.3); Blood Urea Nitrogen 14 mg/dl (7-17); Creatinine Clearance Estimated 150 mL/min (50-200); Estimated Glomerular Filt Rate 163 ml/min (>60); GFR (African American) 197 ML/MIN (>60); Globulin 3.1 g/dL (1.3-3.2); Glucose 158 mg/dl (74-100); Total Protein,Serum 7.4 g/dl (6.3-8.2)
--- NOTE | 2022-09-24 17:06 | HMH.EDGENADL ---
Discharge Plan Disposition Chief Complaint: Nausea/Vomiting/Diarrhea Prescriptions Prescriptions: No Action lisinopril 10 mg tablet 10 mg PO DAILY tizanidine 4 mg capsule 4 mg PO Q6H PRN gabapentin 600 mg tablet 600 mg PO QID 30 Days Qty: 120 2RF clonazepam [Klonopin] 0.5 mg tablet 0.5 mg PO BID 30 Days Qty: 60 2RF fexofenadine 180 mg tablet 180 mg PO DAILY Qty: 30 2RF pantoprazole 40 mg tablet,delayed release (DR/EC) 40 mg PO DAILY Qty: 90 1RF Jardiance 10 mg tablet 10 mg PO DAILY Qty: 30 2RF ipratropium-albuterol 0.5 mg-3 mg(2.5 mg base)/3 mL Solution For Nebulization 3 ml inhalation Q6RT Qty: 0 0RF sertraline 100 mg Tablet 100 mg PO DAILY Qty: 0 0RF montelukast 10 MG tablet 10 mg PO PM Referrals Follow up/Referrals: Raad Marsh MD [Primary Care Provider] - See instructions Instructions Patient Instructions: DI for Nausea -- Adult, DI for Nausea -- Child, DI for Diarrhea and Traveler's Diarrhea -- Adult, DI for Diarrhea and Traveler's Diarrhea -- Child Discharge ED Provider: Todd Whitley General Adult HPI General Chief complaint: Nausea/Vomiting/Diarrhea Stated complaint: vomitting Time Seen by Provider: 09/24/22 17:00 Mode of Arrival: EMS Source of Information: Patient and EMS Limitations: No Limitations Description of Symptoms (Recalled from ER Triage Doc. by RN): pt to ed c/o n/v. pt states she was seen in the ED and was given zofran to take home. pt reports her symptoms are not improving. pt denies pain. History of Present Illness HPI narrative: Patient presents with 4 days of vomiting. She denies diarrhea and she denies abdominal pain. She states subjective fever. She denies cough. Symptoms are described as moderate to severe and without exacerbating alleviating factors. Related Data Home Medications Medication Instructions Recorded Confirmed montelukast 10 mg tablet 10 mg PO PM ALLERGIES 12/04/21 08/30/22 lisinopril 10 mg tablet 10 mg PO DAILY 08/30/22 08/30/22 tizanidine 4 mg capsule 4 mg PO Q6H PRN 08/30/22 08/30/22 Previous Rx's Medication Instructions Recorded ipratropium 0.5 mg-albuterol 3 mg 3 ml inhalation Q6RT #0 mL 07/18/22 (2.5 mg base)/3 mL nebulization soln sertraline 100 mg tablet 100 mg PO DAILY #0 tabs 07/18/22 clonazepam 0.5 mg tablet (Klonopin) 0.5 mg PO BID Anxiety 30 days #60 08/30/22 tabs empagliflozin 10 mg tablet 10 mg PO DAILY #30 tabs 08/30/22 (Jardiance) fexofenadine 180 mg tablet 180 mg PO DAILY Allergy symptoms 08/30/22 #30 tabs gabapentin 600 mg tablet 600 mg PO QID 30 days #120 tabs 08/30/22 pantoprazole 40 mg tablet,delayed 40 mg PO DAILY #90 tabs 08/30/22 release Allergies Allergy/AdvReac Type Severity Reaction Status Date / Time hydrocodone Allergy Severe cant breath Verified 08/30/22 14:21 [From Panlor (hydrocodone-acetamin)] Penicillins Allergy Unknown Unknown Verified 08/30/22 14:21 allergy reaction [facility] Disclaimer: The information contained in this section may have been updated after the patient was seen, as this information can be updated by other users. 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
[2022-09-24 17:15] LABS: Anion Gap 7.4 mEq/L (5-15); Carbon Dioxide 44 mmol/L (22.0-30.0)
[2022-09-24 17:19] LABS: Microscopic, Urine URINE MICROSCOPIC (MICROSCOPIC)
[2022-09-24 17:23] LABS: Lipase 20 U/L (23-300)
[2022-09-24 17:34] LABS: Appearance,Urine CLOUDY (Clear); Bilirubin,Urine Negative (Negative); Blood, Urine TRACE-I (Negative); Color,Urine YELLOW (Yellow); Glucose,Urine (UA) 3+ (Negative); Ketones,Urine TRACE (Negative); Leukocyte Esterase,Urine Negative (Negative); Nitrate,Urine Negative (Negative); PH,Urine 6.5 (5.0-8.5); Protein,Urine Negative (Negative); Urobilinogen,Urine 0.2 EU/dl (0.2)
[2022-09-24 17:35] LABS: Lymphocytes % 7 % (10-50); Monocytes % 3 % (2-9); Neutrophils % 89 % (42-76); Platelet Estimate Normal; RBC Morphology Normal; Total Cells Counted 100
--- NOTE | 2022-09-24 17:47 | PC.NURSE ---
rounded on pt gave warm blanket call light at bs
[2022-09-24 18:00] LABS: Bacteria,Urine 3+ /lpf; RBC,Urine Occasional #/hpf (0-3); Squamous Epithelial Cell,Urine 50-100 #/hpf (0-5)
[2022-09-24 18:04] LABS: Lactic Acid < 0.5 mmol/L (0.7-2.1)
--- NOTE | 2022-09-24 18:51 | PC.NURSE ---
pt is resting in bed call light @ bs
--- NOTE | 2022-09-24 19:13 | PC.NURSE ---
pt monitor reading 60s oxygen, checked on pt, no oxygen was on pt at that time. pt was using 2 L NC before leaving for radiology test, when returned no oxygen was placed back on pt, oxygen applied, after a minute pt oxygen returned 91.
--- NOTE | 2022-09-24 19:15 | PC.NURSE ---
RT at to obtain ABG
[2022-09-24 19:21] LABS: ABG HCO3 42.5 mmhg (22.0-26.0); ABG Oxygen Saturation 89 % (90-100); ABG PO2 56.2 mmhg (80-100); ABG TCO2 46.2 mmhg (23-27)
--- NOTE | 2022-09-24 19:26 | PC.NURSE ---
Dr. Whitley notified of critical CO2 results from ABG. Respiratory placing pt on Bipap.
[2022-09-24 19:29] LABS: Coronavirus 19, PCR Not Detected (NotDetected); Influenza A, PCR Not Detected (NotDetected); Influenza B, PCR Not Detected (NotDetected)
--- NOTE | 2022-09-24 19:37 | HMH.EDGENADL ---
Discharge Plan Disposition Patient Disposition: Admitted As Inpatient Condition: Fair Prescriptions Prescriptions: No Action lisinopril 10 mg tablet 10 mg PO DAILY tizanidine 4 mg capsule 4 mg PO Q6H PRN gabapentin 600 mg tablet 600 mg PO QID 30 Days Qty: 120 2RF clonazepam [Klonopin] 0.5 mg tablet 0.5 mg PO BID 30 Days Qty: 60 2RF fexofenadine 180 mg tablet 180 mg PO DAILY Qty: 30 2RF pantoprazole 40 mg tablet,delayed release (DR/EC) 40 mg PO DAILY Qty: 90 1RF Jardiance 10 mg tablet 10 mg PO DAILY Qty: 30 2RF ipratropium-albuterol 0.5 mg-3 mg(2.5 mg base)/3 mL Solution For Nebulization 3 ml inhalation Q6RT Qty: 0 0RF sertraline 100 mg Tablet 100 mg PO DAILY Qty: 0 0RF montelukast 10 MG tablet 10 mg PO PM Referrals Follow up/Referrals: Raad Marsh MD [Primary Care Provider] - See instructions Clinical Impressions Clinical Impression: Vomiting, Hypercarbia Instructions Patient Instructions: DI for Diarrhea and Traveler's Diarrhea -- Adult, DI for Diarrhea and Traveler's Diarrhea -- Child, DI for Nausea -- Adult, DI for Nausea -- Child Discharge ED Provider: Todd Whitley General Adult HPI General Chief complaint: Nausea/Vomiting/Diarrhea Stated complaint: vomitting Time Seen by Provider: 09/24/22 17:00 Mode of Arrival: EMS Source of Information: Patient and EMS Limitations: No Limitations Description of Symptoms (Recalled from ER Triage Doc. by RN): pt to ed c/o n/v. pt states she was seen in the ED and was given zofran to take home. pt reports her symptoms are not improving. pt denies pain. History of Present Illness HPI narrative: Patient presents with approximate 4 days of vomiting. She does note some abdominal discomfort she denies diarrhea she denies exacerbating alleviating factors. She was seen here on the of this month for similar symptoms and notes no improvement since that time. Symptoms are described as moderate. History somewhat limited due to the patient being mildly lethargic Related Data Home Medications Medication Instructions Recorded Confirmed montelukast 10 mg tablet 10 mg PO PM ALLERGIES 12/04/21 08/30/22 lisinopril 10 mg tablet 10 mg PO DAILY 08/30/22 08/30/22 tizanidine 4 mg capsule 4 mg PO Q6H PRN 08/30/22 08/30/22 Previous Rx's Medication Instructions Recorded ipratropium 0.5 mg-albuterol 3 mg 3 ml inhalation Q6RT #0 mL 07/18/22 (2.5 mg base)/3 mL nebulization soln sertraline 100 mg tablet 100 mg PO DAILY #0 tabs 07/18/22 clonazepam 0.5 mg tablet (Klonopin) 0.5 mg PO BID Anxiety 30 days #60 08/30/22 tabs empagliflozin 10 mg tablet 10 mg PO DAILY #30 tabs 08/30/22 (Jardiance) fexofenadine 180 mg tablet 180 mg PO DAILY Allergy symptoms 08/30/22 #30 tabs gabapentin 600 mg tablet 600 mg PO QID 30 days #120 tabs 08/30/22 pantoprazole 40 mg tablet,delayed 40 mg PO DAILY #90 tabs 08/30/22 release Allergies Allergy/AdvReac Type Severity Reaction Status Date / Time hydrocodone Allergy Severe cant breath Verified 08/30/22 14:21 [From Panlor (hydrocodone-acetamin)] Penicillins Allergy Unknown Unknown Verified 08/30/22 14:21 [facility] Disclaimer: The information contained in this section may have been updated after the patient was seen, as this information can be updated by other users. Medical History Chronic hypercapnic respiratory failure Chronically on benzodiazepine therapy COPD (chronic obstructive pulmonary disease) COPD exacerbation COVID-19 COVID-19 virus infection Generalized anxiety disorder GERD (gastroesophageal reflux disease) Hypertension Surgical History History of cholecystectomy History of colonoscopy History of esophagogastroduodenoscopy History of hysterectomy Family History Rony
--- NOTE | 2022-09-24 19:41 | PC.NURSE ---
Patient admitted to 217 stepdown with dx of nausea to service of Dr. Bermeo.
[2022-09-24 19:45] LABS: Allen's Test y; Oxygen 3 %; Source rr
[2022-09-24 19:46] LABS: ABG PCO2 119.8 mmhg (35.0-45.0); ABG PH 7.17 mmol/L (7.35-7.45)
--- NOTE | 2022-09-24 20:46 | PC.NURSE ---
Updated pt sister, Faustina, that pt is admitted
--- NOTE | 2022-09-24 21:16 | PC.NURSE ---
Pt arrived to floor via stretcher @ 2049
--- NOTE | 2022-09-24 21:17 | EXP.HP ---
History of Present Illness *Admission Date: 09/24/22 *Reason for visit:: Vomiting *History of present illness: This is a 61-year-old female with a past medical history of acute on chronic respiratory failure with hypercarbia, HFpEF, CKD, HTN who presents emergency department today with complaints of vomiting. She was seen initially in the emergency department earlier in in the day with complaints of vomiting. She was sent home with Zofran and did not have an improvement in symptoms. She presented back to the emergency department for continued complaints of vomiting. At that time she was noted to be lethargic. Given her history of hypercarbia, ABG was obtained and was noted to have CO2 of 119, pH of 1.17. At that time she was placed on BiPAP. CT scan was obtained of her abdomen without acute abnormalities except for colonic constipation. Urinalysis notable for +3 bacteria with white cells. Given the above-mentioned complaints she was admitted to the hospital service for further evaluation management. [facility] Disclaimer: The information contained in this section may have been updated after the patient was seen, as this information can be updated by other users. Medical History Chronic hypercapnic respiratory failure Chronically on benzodiazepine therapy COPD (chronic obstructive pulmonary disease) COPD exacerbation COVID-19 COVID-19 virus infection Generalized anxiety disorder GERD (gastroesophageal reflux disease) Hypertension Surgical History History of cholecystectomy History of colonoscopy History of esophagogastroduodenoscopy History of hysterectomy Family History Mother Cancer Father Pancreatic cancer Social History Smoking Status: Never smoker how long ago did patient quit smokin hours second hand exposure: Yes alcohol intake: never substance use type: denies use current occupational status: disabled Travel in the last 8 weeks: None household members: family housing: house number of children: 1 caffeine: Yes Review of Systems Review of Systems Review of systems:: unable to obtain Meds Home Medications and Allergies Home Medications Medication Instructions Recorded Confirmed Type montelukast 10 mg tablet 10 mg PO PM ALLERGIES 12/04/21 08/30/22 History ipratropium 0.5 mg-albuterol 3 mg 3 ml inhalation Q6RT #0 mL 07/18/22 08/30/22 Rx (2.5 mg base)/3 mL nebulization soln sertraline 100 mg tablet 100 mg PO DAILY #0 tabs 07/18/22 08/30/22 Rx clonazepam 0.5 mg tablet (Klonopin) 0.5 mg PO BID Anxiety 30 days #60 08/30/22 08/30/22 Rx tabs empagliflozin 10 mg tablet 10 mg PO DAILY #30 tabs 08/30/22 08/30/22 Rx (Jardiance) fexofenadine 180 mg tablet 180 mg PO DAILY Allergy symptoms 08/30/22 08/30/22 Rx #30 tabs gabapentin 600 mg tablet 600 mg PO QID 30 days #120 tabs 08/30/22 08/30/22 Rx lisinopril 10 mg tablet 10 mg PO DAILY 08/30/22 08/30/22 History pantoprazole 40 mg tablet,delayed 40 mg PO DAILY #90 tabs 08/30/22 08/30/22 Rx release tizanidine 4 mg capsule 4 mg PO Q6H PRN 08/30/22 08/30/22 History New Prescriptions to Start Prescriptions: Allergies Allergy/AdvReac Type Severity Reaction Status Date / Time hydrocodone Allergy Severe cant breath Verified 08/30/22 14:21 [From Panlor (hydrocodone-acetamin)] Penicillins Allergy Unknown Unknown Verified 08/30/22 14:21 allergy reaction Exam Data for Last 24 hours Vital signs and Labs for Last 24 Hours: Temp Pulse Resp BP Pulse Ox FiO2 97.7 F 103 H 20 145/97 H 95 40 09/24/22 20:35 09/24/22 20:45 09/24/22 20:45 09/24/22 20:45 09/24/22 20:45 09/24/22 19:05 Laboratory Results - last 24 hr 09/24/22 16:49: WBC 10.6, RBC 4.71, Hgb 13.
[2022-09-24 23:32] LABS: ABG Base Excess 14.2 mmol/L (-2.4-2.3); ABG HCO3 43.1 mmhg (22.0-26.0); ABG Oxygen Saturation 97 % (90-100); ABG PO2 88.9 mmhg (80-100)
[2022-09-24 23:36] LABS: Allen's Test Y; Oxygen 35 %; Source Right Radial; Vent Rate 20
[2022-09-24 23:37] LABS: ABG PCO2 126.5 mmhg (35.0-45.0); ABG PH 7.15 mmol/L (7.35-7.45)
[2022-09-25] VITALS (29 sets, daily range): BP systolic 132–164; BP diastolic 68–95; PULSE 78–128; RESP 18–24; TEMP 34.9–37.6; O2SAT 90–100; BMI 21.5
[2022-09-25 02:47] LABS: ABG Base Excess 10.9 mmol/L (-2.4-2.3); ABG HCO3 38.3 mmhg (22.0-26.0); ABG Oxygen Saturation 97 % (90-100); ABG PH 7.24 mmol/L (7.35-7.45); ABG PO2 88.1 mmhg (80-100)
[2022-09-25 02:49] LABS: Allen's Test Y; Oxygen 35 %; Source Right Radial
[2022-09-25 02:50] LABS: ABG PCO2 90.5 mmhg (35.0-45.0)
[2022-09-25 06:34] LABS: ABG Base Excess 13.7 mmol/L (-2.4-2.3); ABG HCO3 40.2 mmhg (22.0-26.0); ABG Oxygen Saturation 98 % (90-100); ABG PH 7.29 mmol/L (7.35-7.45); ABG PO2 109.9 mmhg (80-100); ABG TCO2 42.8 mmhg (23-27)
[2022-09-25 06:37] LABS: Pressure Support 10; Vent Rate 22
[2022-09-25 06:38] LABS: Allen's Test Acceptable; Source Right Radial
[2022-09-25 06:40] LABS: ABG PCO2 85.2 mmhg (35.0-45.0)
[2022-09-25 06:54] LABS: Basophils % 0.2 % (0.1-2.0); Hematocrit 42.3 % (37.0-47.0); Hemoglobin 13.2 g/dL (12.2-16.2); Lymphocytes # 0.6 K/mm3 (0.7-4.5); Lymphocytes % 8.4 % (10-50); Mean Corpuscular HGB Conc 31.2 g/dL (31.8-35.4); Mean Corpuscular Hemoglobin 29.2 pg (27.0-31.2); Mean Corpuscular Volume 93.8 fl (81-99); Mean Platelet Volume 8.5 fl (7.4-10.4); Monocytes # 0.2 K/mm3 (0.1-1.0); Monocytes % 2.1 % (1.7-9.3); Neutrophils # 6.7 K/mm3 (1.8-7.8); Neutrophils % 89.3 % (37.0-80.0); Platelet Count 233 K/mm3 (142-424); Red Blood Count 4.51 M/mm3 (4.20-5.40); Red Cell Distribution Width 12.9 % (11.5-17.5); White Blood Count 7.5 K/mm3 (4.8-10.8)
[2022-09-25 06:57] LABS: MANUAL DIFFERENTIAL MANUAL DIFFERENTIAL (MANUAL DIFF)
[2022-09-25 07:03] LABS: Blood Urea Nitrogen 19 mg/dl (7-17); Calcium 9.3 mg/dl (8.4-10.2); Chloride 93 mmol/L (98-107); Chol/HDL Ratio 2.3 (1-3.5); Cholesterol 213 mg/dl (140-200); Creatinine Clearance Estimated 147 mL/min (50-200); Estimated Glomerular Filt Rate 163 ml/min (>60); GFR (African American) 197 ML/MIN (>60); Glucose 121 mg/dl (74-100); HDL Cholesterol 91 mg/dl (40-60); Magnesium 2.1 mg/dl (1.6-2.3); Potassium 4.4 mmoL/L (3.5-5.1); Sodium 142 mmol/L (136-145); Triglycerides 46 mg/dl (30-150); VLDL Cholesterol 9 mg/dL (0-40)
[2022-09-25 07:30] LABS: Anion Gap 13.4 mEq/L (5-15)
[2022-09-25 07:34] LABS: Carbon Dioxide 39 mmol/L (22.0-30.0)
[2022-09-25 07:43] LABS: Direct LDL Cholesterol 77.82 mg/dL (100-129)
[2022-09-25 08:18] LABS: Lymphocytes % 13 % (10-50); Monocytes % 2 % (2-9); Neutrophils % 85 % (42-76); Platelet Estimate Normal; RBC Morphology Normal; Total Cells Counted 100
--- NOTE | 2022-09-25 14:11 | EXP.PULM.CON ---
History of Present Illness History of present illness: Ms. Avlies is a 61-year-old female greater than [id number] smoking history, COPD, prior history of recurrent hypercarbic respiratory failure recently hospital admitted in June 2022 discharged home BiPAP therapy presented to the ER again today with worsening respiratory's found to be having hypoxic hypercarbic respiratory failure initiated on noninvasive ventilator therapy and pulmonary was called for further evaluation. [facility] Disclaimer: The information contained in this section may have been updated after the patient was seen, as this information can be updated by other users. Medical History (Updated 09/25/22 @ 14:12 by Mary Pierre MD) Chronic hypercapnic respiratory failure Chronically on benzodiazepine therapy COPD (chronic obstructive pulmonary disease) COPD exacerbation COPD exacerbation COVID-19 COVID-19 virus infection Generalized anxiety disorder GERD (gastroesophageal reflux disease) Hypertension Surgical History History of cholecystectomy History of colonoscopy History of esophagogastroduodenoscopy History of hysterectomy Family History Mother Cancer Father Pancreatic cancer Social History (Updated 09/24/22 @ 21:59 by Keila Morocho RN) Smoking Status: Never smoker how long ago did patient quit smokin hours second hand exposure: Yes alcohol intake: never substance use type: denies use current occupational status: disabled Travel in the last 8 weeks: None household members: family housing: house number of children: 1 caffeine: Yes Review of Systems Constitutional Constitutional: Reports anorexia, Reports body ache(s) and Reports fatigue Eyes Eyes: Denies eye discharge, Denies dry eyes, Denies irritation and Denies itchy eyes ENT Ears, Nose, Mouth, and Throat: Denies epistaxis, Denies facial pain, Denies lip swelling and Denies throat swelling *Cardiovascular Cardiovascular: Reports dyspnea and Reports dyspnea on exertion *Respiratory Respiratory: Reports chest congestion, Reports cough, Reports dyspnea, Reports dyspnea on exertion, Denies excessive phlegm production and Reports wheezing *Gastrointestinal Gastrointestinal: Denies abdominal pain, Denies belching and Denies cramping *Musculoskeletal Musculoskeletal: Reports back pain, Reports myalgias and Reports other (No small joint swelling or Pain) Psychiatric Psychiatric: Denies homicidal ideation and Denies suicidal ideation Endocrine Endocrine: Reports fatigue and Denies heat intolerance Hematologic/Lymphatic Hematologic/Lymphatic: Denies easy bleeding and Denies lymphadenopathy Allergic/Immunologic Allergic/Immunologic: Denies itchy eyes, Denies lip swelling, Denies throat swelling and Reports wheezing Pulmonology Exam Inpatient Vital signs and Labs for Last 24 Hours: Temp Pulse Resp BP Pulse Ox FiO2 98.9 F 101 H 24 146/95 H 100 30 09/25/22 13:53 09/25/22 12:26 09/25/22 12:00 09/25/22 12:00 09/25/22 12:00 09/25/22 10:45 Laboratory Results - last 24 hr 09/24/22 16:49: WBC 10.6, RBC 4.71, Hgb 13.9, Hct 44.0, MCV 93.4, MCH 29.6, MCHC 31.7 L, RDW 13.0, Plt Count 233, MPV 8.4, Neut % (Auto) 87.7 H, Lymph % (Auto) 8.4 L, [place] % (Auto) 2.9, Eos % (Auto) 0.8, Baso % (Auto) 0.2, Neut # (Auto) 9.3 H, Lymph # (Auto) 0.9, [place] # (Auto) 0.3, Eos # (Auto) 0.1, Baso # (Auto) 0.0, Total Counted 100, Neutrophils % (Manual) 89 H, Lymphocytes % (Manual) 7 L, Atypical Lymphs % 1.0, Monocytes % (Manual) 3, Platelet Estimate Normal, RBC Morphology Normal 09/24/22 16:49: Sodium 142, Potassium 4.4, Chloride 95 L, Carbon Dioxide 44 H*, Anion Gap 7.4, BUN 14, Creatinine 0.40 L, Estimated Creat Clear 150, Estimated GFR 163, Est GFR ( Amer) 197, Glucose 158 H, Calcium 9.0, Total Bilirubin 0.3, AST 22, ALT 17, Alkaline Phosphatase 5
--- NOTE | 2022-09-25 14:42 | EXP.PN ---
Subjective *Date: 09/25/22 *Time: 14:42 Interval history: Date of service September 25, 2022 The patient reports improved dyspnea from ED presentation. She reports no routine use of NIPPV therapy at home. Nursing staff report that her heart rates have improved and she remains afebrile. Her blood pressures are stable. She is oxygenating well on her current NIPPV settings. Pulmonology is due to see the patient. We have reviewed, discussed and I personally interpreted her labs and imaging results as follows: A CBC with a normal white blood cell count and stable hemoglobin with normal platelet count. Electrolytes that are normal with a BUN 19 and creatinine 0.4. Her glucose trend is under 175. Her lactic acid is normal. Her ED presenting ABG identifies a PCO2 of 126 with an O2 of 88. Her chest x-ray identifies no acute disease. Exam Data for Last 24 hours Vital signs and Labs for Last 24 Hours: Temp Pulse Resp BP Pulse Ox FiO2 98.9 F 79 22 146/78 H 96 30 09/25/22 13:53 09/25/22 14:18 09/25/22 14:00 09/25/22 14:00 09/25/22 14:00 09/25/22 10:45 Laboratory Results - last 24 hr 09/24/22 16:49: WBC 10.6, RBC 4.71, Hgb 13.9, Hct 44.0, MCV 93.4, MCH 29.6, MCHC 31.7 L, RDW 13.0, Plt Count 233, MPV 8.4, Neut % (Auto) 87.7 H, Lymph % (Auto) 8.4 L, [place] % (Auto) 2.9, Eos % (Auto) 0.8, Baso % (Auto) 0.2, Neut # (Auto) 9.3 H, Lymph # (Auto) 0.9, [place] # (Auto) 0.3, Eos # (Auto) 0.1, Baso # (Auto) 0.0, Total Counted 100, Neutrophils % (Manual) 89 H, Lymphocytes % (Manual) 7 L, Atypical Lymphs % 1.0, Monocytes % (Manual) 3, Platelet Estimate Normal, RBC Morphology Normal 09/24/22 16:49: Sodium 142, Potassium 4.4, Chloride 95 L, Carbon Dioxide 44 H*, Anion Gap 7.4, BUN 14, Creatinine 0.40 L, Estimated Creat Clear 150, Estimated GFR 163, Est GFR ( Amer) 197, Glucose 158 H, Calcium 9.0, Total Bilirubin 0.3, AST 22, ALT 17, Alkaline Phosphatase 57, Total Protein 7.4, Albumin 4.3, Globulin 3.1, Albumin/Globulin Ratio 1.4 09/24/22 16:49: Lipase 20 L 09/24/22 17:12: Urine Color Yellow, Urine Appearance Cloudy, Urine pH 6.5, Ur Specific [place] 1.010, Urine Protein Negative, Urine Glucose (UA) 3+, Urine Ketones Trace, Urine Blood Trace-i, Urine Nitrate Negative, Urine Bilirubin Negative, Urine Urobilinogen 0.2, Ur Leukocyte Esterase Negative, Urine RBC Occasional, Urine WBC 5-10, Ur Squamous Epith Cells 50-100, Urine Bacteria 3+ 09/24/22 17:43: Lactate < 0.5 L 09/24/22 19:06: ABG pH 7.17 L*, ABG pCO2 119.8 H, ABG pO2 56.2 L, ABG HCO3 42.5 H, ABG Total CO2 46.2 H, ABG O2 Saturation 89 L, ABG Base Excess 14.0 H 09/24/22 19:25: SARS-CoV-2 (PCR) Not detected, Influenza A Untype (PCR) Not detected, Influenza Type B (PCR) Not detected 09/24/22 23:30: Specimen Source Right radial, O2 % 35, ABG pH 7.15 L*, ABG pCO2 126.5 H, ABG pO2 88.9, ABG HCO3 43.1 H, ABG Total CO2 47.0 H, ABG O2 Saturation 97, ABG Base Excess 14.2 H, Jay Test Y, Vent Rate 20 09/25/22 03:00: Specimen Source Right radial, O2 % 35, ABG pH 7.24 L*, ABG pCO2 90.5 H, ABG pO2 88.1, ABG HCO3 38.3 H, ABG Total CO2 41.0 H, ABG O2 Saturation 97, ABG Base Excess 10.9 H, Jay Test Y 09/25/22 05:50: WBC 7.5 D, RBC 4.51, Hgb 13.2, Hct 42.3, MCV 93.8, MCH 29.2, MCHC 31.2 L, RDW 12.9, Plt Count 233, MPV 8.5, Neut % (Auto) 89.3 H, Lymph % (Auto) 8.4 L, [place] % (Auto) 2.1, Eos % (Auto) 0.0 L, Baso % (Auto) 0.2, Neut # (Auto) 6.7, Lymph # (Auto) 0.6 L, [place] # (Auto) 0.2, Eos # (Auto) 0.0, Baso # (Auto) 0.0, Total Counted 100, Neutrophils % (Manual) 85 H, Lymphocytes % (Manual) 13, Monocytes % (Manual) 2, Platelet Estimate Normal, RBC Morphology Normal 09/25/22 05:50: Sodium 142, Potassium 4.4, Chloride 93 L, Carbon Dioxide 39 H, Anion Gap 13.4, BUN 19 H D, Creatinine 0.40 L, Estimated Creat Clear 147, Estimated GFR 163, Est GFR ( Amer) 197, Glucose 121 H D, Calcium 9.3, Magnesium 2.1, Triglycerides 46, Cholesterol 213 H, LDL Cholesterol Direct 77.82 L, VLDL Cholesterol 9, HDL Cholesterol 91 H, Cholesterol/HDL Ratio 2.3
--- NOTE | 2022-09-25 18:23 | PC.NURSE ---
pt is now A&Ox3, no complaints of pain, pt currently on 1 L NC, has remained tachy t/o shift
[2022-09-26] VITALS (9 sets, daily range): BP systolic 92–136; BP diastolic 56–91; PULSE 68–115; RESP 16–25; TEMP 36.6–36.9; O2SAT 93–99; BMI 21.9
--- NOTE | 2022-09-26 03:31 | PC.NURSE ---
Pt is A&Ox3, pt currently on 1 L NC, she has a purewick in place and had a bed change once this morning. She hasn't c/o any pain during the night.
--- NOTE | 2022-09-26 07:22 | EXP.ACUTE.PN ---
Subjective *Date: 09/26/22 *Time: 07:22 Medical Exam Vital signs and Labs for Last 24 Hours: Vital Signs Temp Pulse Pulse Resp BP Pulse Ox FiO2 09/26/22 05:54 91 H 09/26/22 05:54 94 H 09/26/22 05:54 93 L 09/26/22 04:00 90 09/26/22 03:57 98 F 99 H 16 119/65 95 09/26/22 02:21 94 H 09/26/22 02:21 103 H 09/26/22 02:21 96 09/26/22 00:00 80 09/26/22 00:00 98.2 F 68 18 136/74 99 09/25/22 20:00 120 H 09/25/22 20:00 97.6 F 128 H 20 132/68 94 L 09/25/22 22:16 96 H 09/25/22 22:16 89 09/25/22 22:16 30 09/25/22 20:00 97 09/25/22 16:00 120 H 09/25/22 17:57 114 H 09/25/22 17:57 115 H 09/25/22 17:57 96 09/25/22 16:00 119 H 20 152/83 H 98 09/25/22 14:00 112 H 22 146/78 H 96 09/25/22 14:18 79 09/25/22 14:18 78 09/25/22 12:00 100 H 09/25/22 08:00 110 H 09/25/22 13:53 98.9 F 09/25/22 12:00 110 H 24 146/95 H 100 09/25/22 12:26 101 H 09/25/22 12:26 102 H 09/25/22 11:37 99.6 F 09/25/22 10:45 30 09/25/22 10:00 105 H 22 142/95 H 100 09/25/22 09:53 98.9 F 09/25/22 08:00 102 H 96 09/25/22 08:00 109 H 22 133/86 96 09/25/22 07:59 98.1 F 115 H 22 136/86 97 Intake and Output 09/25/22 09/25/22 09/26/22 15:59 23:59 07:59 Intake Total 240 / 360 120 / 360 Output Total 0 / 400 200 / 400 / 101 Balance 240 / -40 -80 / -40 -101 Intake: Intake, Oral Amount 240 / 360 120 / 360 Output: Output, Urine Amount 0 / 400 200 / 400 / Other: Number of Unmeasured Voids 1 0 1 Number of Bowel Movements 1 1 Weight 63.594 kg Patient Weight 09/26/22 23:59 Weight 63.594 kg Laboratory Results - last 24 hr 09/25/22 05:50: Total Counted 100, Neutrophils % (Manual) 85 H, Lymphocytes % (Manual) 13, Monocytes % (Manual) 2, Platelet Estimate Normal, RBC Morphology Normal 09/25/22 05:50: Sodium 142, Potassium 4.4, Chloride 93 L, Carbon Dioxide 39 H, Anion Gap 13.4, BUN 19 H D, Creatinine 0.40 L, Estimated Creat Clear 147, Estimated GFR 163, Est GFR ( Amer) 197, Glucose 121 H D, Calcium 9.3, Magnesium 2.1, Triglycerides 46, Cholesterol 213 H, LDL Cholesterol Direct 77.82 L, VLDL Cholesterol 9, HDL Cholesterol 91 H, Cholesterol/HDL Ratio 2.3 I & O for Labs for Last 24 Hours: Intake & Output 09/23/22 09/24/22 09/25/22 09/26/22 23:59 23:59 23:59 23:59 Intake Total 360 / 360 Output Total 400 / 400 / 101 Balance -40 / -40 - Weight 62.278 kg 62.278 kg 63.594 kg Microbiology Reports for the Last 24 Hours: Microbiology 09/24/22 17:12 Urine,Catheterized Urine Culture - Preliminary NO GROWTH AFTER 24 HOURS
[2022-09-26 07:35] LABS: Chloride 91 mmol/L (98-107); Potassium 3.3 mmoL/L (3.5-5.1); Sodium 139 mmol/L (136-145)
[2022-09-26 07:38] LABS: Blood Urea Nitrogen 29 mg/dl (7-17); Calcium 8.7 mg/dl (8.4-10.2); Creatinine Clearance Estimated 120 mL/min (50-200); Estimated Glomerular Filt Rate 126 ml/min (>60); GFR (African American) 152 ML/MIN (>60); Glucose 131 mg/dl (74-100)
[2022-09-26 07:41] LABS: Anion Gap 11.3 mEq/L (5-15); Carbon Dioxide > 40 mmol/L (22.0-30.0)
--- NOTE | 2022-09-26 09:36 | EXP.PULM.PN ---
Subjective *Date: 09/26/22 *Time: 10:30 Interval history: No acute respiratory events overnight. Patient denies any new complaints Pulmonology Exam Inpatient Vital signs and Labs for Last 24 Hours: Temp Pulse Resp BP Pulse Ox FiO2 98 F 91 H 16 119/65 93 L 30 09/26/22 03:57 09/26/22 05:54 09/26/22 03:57 09/26/22 03:57 09/26/22 05:54 09/25/22 22:16 Laboratory Results - last 24 hr 09/26/22 07:05: Sodium 139, Potassium 3.3 L D, Chloride 91 L, Carbon Dioxide > 40 H*, Anion Gap 11.3, BUN 29 H D, Creatinine 0.50 L D, Estimated Creat Clear 120, Estimated GFR 126, Est GFR ( Amer) 152 D, Glucose 131 H, Calcium 8.7 I & O for Labs for Last 24 Hours: Intake & Output 09/23/22 09/24/22 09/25/22 09/26/22 23:59 23:59 23:59 23:59 Intake Total 360 / 360 Output Total 400 / 400 101 / 101 Balance -40 / -40 -101 / -101 Weight 137 lb 4.8 oz 137 lb 4.8 oz 140 lb 3.071 oz Microbiology Reports for the Last 24 Hours: Microbiology 09/24/22 17:12 Urine,Catheterized Urine Culture - Preliminary NO GROWTH AFTER 24 HOURS Constitutional: Present mild distress Head: Present normocephalic and atraumatic ENT: Present normal exam, normal oropharynx and mucous membranes moist Neck: Present normal inspection and full ROM Respiratory: Present respiratory distress, wheezes and able to speak in complete sentences Cardiac: Present S1/S2, Tachycardia and radial pulses present GI: Present soft and distention; Absent tenderness or guarding Rectal (female): Present deferred (female): Present deferred Skin: Present intact; Absent cyanosis or jaundice Neuro: Present alert, awake and oriented x 3 Extremities: Present normal inspection; Absent clubbing or cyanosis Psychiatric: Present normal affect and cooperative Assessment and Plan *Assessment and plan (1) COPD exacerbation: Status: Acute Category: Medical Code(s): J44.1 - Chronic obstructive pulmonary disease with (acute) exacerbation (2) Acute on chronic respiratory failure with hypoxia and hypercapnia: Status: Acute Category: Medical Code(s): J96.21 - Acute and chronic respiratory failure with hypoxia; J96.22 - Acute and chronic respiratory failure with hypercapnia Plan Ms. Aviles is a 61-year-old female greater than [id number] smoking history, COPD, prior history of recurrent hypercarbic respiratory failure recently hospital admitted in June 2022 discharged home BiPAP therapy presented to the ER again today with worsening respiratory's found to be having hypoxic hypercarbic respiratory failure initiated on noninvasive ventilator therapy and pulmonary was called for further evaluation. No evidence of leukocytosis. Chest x-ray personally reviewed, no acute airspace disease. COVID-19 and flu PCR negative. On examination patient was weaned to nasal cannula. Bilateral decreased breath sounds with expiratory wheezing. Tolerating nasal cannula well. After extensive discussion with the patient with patient today admits to being noncompliant with her BiPAP therapy. Interval update: No acute respiratory events overnight. Patient tolerating nasal cannula well during the daytime but continue to use NIV at night. Hypokalemia, managed by primary team. Extensively discussed with the patient today regarding the need to be compliant with her clinic appointment and use NIV. Patient stated that she do not have / afford transport to come to the clinic appointments. Patient would also benefit from home health to monitor her clinical course as an outpatient basis and ensure compliance with her NIV. Discussed this with primary team and social work. We will continue to monitor. Plan -Trelegy 100 inhaler along with DuoNebs every 6 hours on as-needed basis -Continue nasal cannula oxygen supplementation during the daytime to maintain O2 saturation above 90 to 95% -Continue BiPAP therapy at night/while asleep with settings of 20/8,
--- NOTE | 2022-09-26 12:27 | ECG_ITS ---
APPROVED REPORT Exam: Resting ECG HR:82 bpm ECG Measurements Heart Rate 82 AXES IA 125 P 80 QRSd 100 QRS 88 QT 349 T 69 QTc 387 Conclusion SINUS RHYTHM EARLY REPOLARIZATION [ST ELEVATION WITH NORMALLY INFLECTED T-WAVE] BORDERLINE ECG UNCONFIRMED REPORT Electronically signed by : Case Barrios MD 09/26/2022 20:17:16
--- NOTE | 2022-09-26 13:46 | HMH.PTEV ---
Physical Therapy Evaluation Rehab PT IP Evaluation Start: 09/26/22 10:32 Freq: ONCE Status: Active Protocol: Document 09/26/22 13:41 [facility]ORCAREY (Rec: 09/26/22 13:46 PHORNE [id number]) Subjective/History History History 61 yowf adm to [facility] with nausea , UTI, and increased SOA. She has hx of oxygen dependent COPD. She reports she lives with her sister who assist her with all daily activities. She is generally independent with all mobility at baseline, but endurance is limited due to her COPD. Subjective Subjective Pt reports feeling a little weak, but better overall. Rehab PT IP Eval Objective Appearance Patient Behavior Appropriate Patient Orientation Person,Place,Time Difficulty following instructions none Speech Pattern Clear Ambulation Patient Able to Ambulate Yes Ambulation Observation IP General Gait Pattern Observation No Deviations/Normal Ambulation Distance (feet) 20 Ambulation Assistive Device None Ambulation Ability Supervision/Stand by Balance Ability to Arise Able, uses arms to help Sitting Balance Steady, safe Standing Balance Steady, wide stance Dynamic Sitting Balance Ability Good Dynamic Standing Balance Ability Good Transfers Bed Transfer Ability Independent Chair Transfer Ability Supervision/Stand by Sit to Stand Bed Transfer Ability Supervision/Stand by Sit to Stand Chair Transfer Ability Supervision/Stand by ROM All Extremities PT ROM Status WFL MMT All Extremities PT MMT WFL Rehab PT IP prob,goals,plan Problems Date of Evaluation: 09/26/22 PT IP Problems Transfers,Gait Rehab Potential Rehab Potential Good Plan PT Intervention Plan Transfers,Gait,Therapeutic Exercise PT Plan Frequency Daily Duration LOS Discharge Goals Sit to Stand Chair Transfer Ability Independent Ambulation Assistive Device None Ambulation Distance (feet) 30 Discharge Plan PT Discharge Plan Pt is currently appropriate for rehab placement once medically stable due to decreased endurance with ADLs. However if her mobility improves, she could return
--- NOTE | 2022-09-26 13:49 | HMH.OTEV ---
OT Inpatient Evaluation Rehab OT IP Evaluation Start: 09/26/22 10:32 Freq: ONCE Status: Active Protocol: Document 09/26/22 13:46 [facility] (Rec: 09/26/22 13:49 [facility] [id number]) Rehab OT IP Assessment Subjective History Pt oriented x 4. Pt agreeable to engage in therapy evaluation. Pt was admitted on 09/24/22 due to vomiting. [facility] , pt lived at home with her sister. Pt claims she was independent with all ADLs such as dressing, bathing, and feeding. However, she is dependent upon her sister to complete all IADLs (cooking, cleaning, laundry, etc). She no longer drives. She is on O2 at all times. She does not use any AE during ambulation. Pt has a past medical history of: Chronic hypercapnic respiratory failure Chronically on benzodiazepine therapy COPD (chronic obstructive pulmonary disease) COPD exacerbation COVID-19 COVID-19 virus infection Generalized anxiety disorder GERD (gastroesophageal reflux disease) Hypertension Subjective I just can't do too much. Objective Patient Orientation Person,Place,Birthday,Year Upper Extremity Gross ROM WFL Bed Mobility bed mobility-scooting,bed mobility - supine/sit,bed mobility - rolling Assist Level Supervision/Stand by Transfer Training Sit/Stand Transfer Assist Level Supervision/Stand by Chair Transfer Technique Sit to/from Ambulatory Chair Transfer Assistive Devices None Feeding Ability Independent Lower Body Dressing Ability Independent Rehab OT IP prob,goals,plan Problems Date of Evaluation: 09/26/22 Rehab Potential Rehab Potential Innapropriate for Skilled Therapy Discharge Plan OT Discharge Plan Pt appears to be at her
--- NOTE | 2022-09-26 14:26 | EXP.DC.SUM ---
General Admission date:: 09/24/22 Discharge date: 09/26/22 HPI HPI HPI: This is a 61-year-old female with a past medical history of acute on chronic respiratory failure with hypercarbia, HFpEF, CKD, HTN who presents emergency department today with complaints of vomiting. She was seen initially in the emergency department earlier in in the day with complaints of vomiting. She was sent home with Zofran and did not have an improvement in symptoms. She presented back to the emergency department for continued complaints of vomiting. At that time she was noted to be lethargic. Given her history of hypercarbia, ABG was obtained and was noted to have CO2 of 119, pH of 1.17. At that time she was placed on BiPAP. CT scan was obtained of her abdomen without acute abnormalities except for colonic constipation. Urinalysis notable for +3 bacteria with white cells. Given the above-mentioned complaints she was admitted to the hospital service for further evaluation management. Hospital Course Hospital Course Hospital Course: This is a 61-year-old female with history of chronic respiratory failure with hypoxia and hypercapnia.? She was noted to be lethargic in the emergency department so ABG was obtained and noted to be in hypercarbic respiratory failure.? She has been admitted several times for similar complaints.? On previous admission she has done well on BiPAP with slow wean to nasal cannula.? Admitted for further treatment. Pulmonology consulted. Responded well to BiPAP usage. Improved to baseline mentation. Meeting criteria for discharge home. Problems addressed as follows: Acute on chronic respiratory failure with hypoxia and hypercapnia Patient admitted for BiPAP therapy. Responded well with improvement in her hypercarbia. Pulmonology was consulted and assisted in care. I recommend continuing her Trelegy 100 inhaler along with DuoNebs every 6 hours as needed. Wean to nasal cannula oxygen during the day with sats maintained between 90 and 95% on 2 to 3 L. Recommend continuing BiPAP therapy at night or while asleep with settings of 20/8, respiratory rate 16, FiO2 35%. The difficulty is Ms. Aviles's compliance with adherence to BiPAP therapy. Review of usage shows minimal usage nightly. Consistently has shown need for bilevel noninvasive positive pressure ventilation therapy. Stressed the importance of adhering with therapy in order to achieve benefit and stay home. In regard to her COPD exacerbation, will plan to complete 5 days total of antibiotics, transition to Augmentin for the last 2 days of therapy. We will also complete 5 days of steroids with prednisone 40 mg daily. PT and OT evaluated patient prior to discharge, she is at baseline function. We will establish with home health to assist with therapy at home and reinforcing need for BiPAP usage along with monitoring a couple times a week. Close follow-up with pulmonology in the coming weeks to evaluate usage. Chronic HFpEF Continued home regimen of Jardiance, lisinopril, metoprolol. Stable during course of hospitalization. Stable for discharge home with home health. Patient's need for BiPAP and limited use/poor compliance complicates her success for discharging home and staying at home. Close follow-up with pulmonology as scheduled. Exam Data for Last 24 hours Vital signs and Labs for Last 24 Hours: Temp Pulse Resp BP Pulse Ox FiO2 98.5 F 98 H 17 92/56 L 94 L 30 09/26/22 12:00 09/26/22 13:47 09/26/22 12:00 09/26/22 12:00 09/26/22 12:00 09/25/22 22:16 Laboratory Results - last 24 hr 09/26/22 07:05: Sodium 139, Potassium 3.3 L D, Chloride 91 L, Carbon Dioxide > 40 H*, Anion Gap 11.3, BUN 29 H D, Creatinine 0.50 L D, Estimated Creat Clear 120, Estimated GFR 126, Est GFR ( Amer) 152 D, Glucose 131 H, Calcium 8.7 I & O for Last 24 hours: Intake & Output 09/23/22 09/24/22 09/25/22 09/26/22 23:59 23:59 23:59 23:59 Intake Total 360 / 360 600 / 600 Ou
--- NOTE | 2022-09-26 14:51 | SW/DCPLANNER ---
Addendum entered by Gisele Reyes 09/26/22 15:43: Margareth vargas/ [facility] stated that services will start 09/28/22. Addendum entered by Gisele Ferron 09/26/22 15:24: I have arranged [employer] for this patient. Confirmation #: [id number]. Original Note: Patient information/order has been faxed to [facility] services. I will follow up with [facility] once patient information is reviewed. Patient will discharge home today.
--- NOTE | 2022-09-26 15:24 | HMH.PHAINT1 ---
Pharmacy Intervention Comments: DISCHARGE MEDICATION COUNSELING COMPLETE. DISCUSSED THE FOLLOWING NEW PRESCRIPTIONS: -AUGMENTIN (FOR INFECTION, THREE TIMES DAILY, TAKE WITH FOOD, N/V/D POSSIBLE) -METOPROLOL (FOR HEART RATE/BLOOD PRESSURE, TWICE DAILY, TAKE ONE-HALF TABLET, DIZZINESS, LIGHTHEADEDNESS, SLOWED HEART RATE POSSIBLE) -PREDNISONE (STEROID, DAILY, TAKE WITH BREAKFAST, N/V POSSIBLE, INSOMNIA IF TAKEN TOO LATE IN THE DAY) PATIENT VERBALIZED NO QUESTIONS AT THIS TIME.
--- NOTE | 2022-09-26 16:57 | PC.NURSE ---
pt ambulated to bathroom and back to bed with standby assist.
--- NOTE | 2022-09-27 14:22 | CARE MANAGER ---
Contacted patient related to hospital discharge. She states she is working on her BIPAP as she said she didn't have it set up right. I offered to call [facility] but she states she thinks she has it fixed.She reports that [facility] is bringing her new medications now. We discussed importance of utilizing her BIPAP. She is aware of her follow up appointment and I provided her with the phone number to [facility] as she could pay private pay for transportation to appointment, but they also require 3 day notification. She verbalized understanding. Provided patient with phone number to [facility] as they should be in contact about starting services as well. HEAVENLY Thorpe
== END 2022-09-26 16:30 | disposition home health service (06) | DRG 189 ==
LOC: ER 19:37 → 2ND 21:41
PROVIDERS: Family Medicine; Nurse Practitioner Acute Care; Admitting Provider Internal Medicine Adolescent Medicine; Emergency Provider Emergency Medicine; PCP Emergency Medicine; Visit Provider Internal Medicine Adolescent Medicine
DX: J96.02 Acute respiratory failure with hypercapnia (principal); J44.1 Chronic obstructive pulmonary disease with (acute) exacerbation; N39.0 Urinary tract infection, site not specified; I50.32 Chronic diastolic (congestive) heart failure; J96.21 Acute and chronic respiratory failure with hypoxia; J96.22 Acute and chronic respiratory failure with hypercapnia; K21.9 Gastro-esophageal reflux disease without esophagitis; Z86.16 Personal history of COVID-19; F41.1 Generalized anxiety disorder; E87.6 Hypokalemia; Z79.899 Other long term (current) drug therapy; R11.2 Nausea with vomiting, unspecified; R19.7 Diarrhea, unspecified
CPT/HCPCS: 36415; 71045; 74177; 80048; 80053; 80061; 81001; 82803; 83605; 83690; 83735; 85007; 85025; 87040; 87086; 93005; 94640; 94660; 94761; 97162; 97165; 99285; C9803; J0696; J2405; Q9967; U0003; U0005

== ENCOUNTER → 2023-02-07 12:00 | Outpatient (CLI) | payer MEDICARE, SELFPAY ==
[2023-02-07 18:51] LABS: MANUAL DIFFERENTIAL MANUAL DIFFERENTIAL (MANUAL DIFF)
[2023-02-07 19:07] LABS: Basophils # 0.1 K/mm3 (0-0.2); Eosinophils # 0.1 K/mm3 (0.0-0.4); Eosinophils % 1.4 % (0.1-12.0); Hematocrit 44.9 % (37.0-47.0); Lymphocytes # 1.8 K/mm3 (0.7-4.5); Mean Corpuscular HGB Conc 31.3 g/dL (31.8-35.4); Mean Corpuscular Hemoglobin 28.9 pg (27.0-31.2); Mean Corpuscular Volume 92.4 fl (81-99); Mean Platelet Volume 10.3 fl (7.4-10.4); Monocytes # 0.4 K/mm3 (0.1-1.0); Monocytes % 6.9 % (1.7-9.3); Neutrophils % 56.7 % (37.0-80.0); Platelet Count 180 K/mm3 (142-424); Red Blood Count 4.85 M/mm3 (4.20-5.40); Red Cell Distribution Width 13.2 % (11.5-17.5); White Blood Count 5.3 K/mm3 (4.8-10.8)
[2023-02-07 19:31] LABS: Alanine Aminotransferase 12 U/L (12-78); Albumin Level 4.4 g/dl (3.5-5.0); Albumin/Globulin Ratio 1.4 (1.1-1.8); Alkaline Phosphatase 51 U/L (38-126); Anion Gap 12.6 mEq/L (5-15); Aspartate Amino Transferase 23 U/L (14-36); Bilirubin,Total 0.3 mg/dl (0.2-1.3); Blood Urea Nitrogen 17 mg/dl (7-17); Calcium 9.4 mg/dl (8.4-10.2); Carbon Dioxide 38 mmol/L (22.0-30.0); Chloride 94 mmol/L (98-107); Estimated Glomerular Filt Rate 102 ml/min (>60); GFR (African American) 123 ML/MIN (>60); Globulin 3.2 g/dL (1.3-3.2); Glucose 94 mg/dl (74-100); Potassium 4.6 mmoL/L (3.5-5.1); Sodium 140 mmol/L (136-145); Total Protein,Serum 7.6 g/dl (6.3-8.2)
[2023-02-07 22:37] LABS: Eosinophils % 1 % (0-3); Lymphocytes % 25 % (10-50); Monocytes % 3 % (2-9); Neutrophils % 71 % (42-76); Platelet Estimate Normal; RBC Morphology Normal; Total Cells Counted 100
== END ==
PROVIDERS: PCP Emergency Medicine; Visit Provider Family Medicine
DX: E11.9 Type 2 diabetes mellitus without complications (principal); Z79.84 Long term (current) use of oral hypoglycemic drugs
CPT/HCPCS: 80053; 85007; 85014; 85018; 85048; 85049

== ENCOUNTER 2023-03-19 23:20 | Observation (INO) | payer MEDICARE, SELFPAY ==
[2023-03-19 23:18] VITALS: BP 127/95; PULSE 114; RESP 23; TEMP 36.7; O2SAT 97; BMI 19.8
--- NOTE | 2023-03-19 23:18 | ECG_ITS ---
APPROVED REPORT Exam: Resting ECG HR:110 bpm ECG Measurements Heart Rate 110 AXES OK 184 P 95 QRSd 84 QRS 100 QT 303 T 81 QTc 368 Conclusion SINUS TACHYCARDIa ABNORMAL RHYTHM ECG UNCONFIRMED REPORT Electronically signed by : Case Barrios MD 03/20/2023 14:41:02
[2023-03-19 23:31] LABS: Basophils % 0.7 % (0.1-2.0); Eosinophils # 0.2 K/mm3 (0.0-0.4); Eosinophils % 2.8 % (0.1-12.0); Hematocrit 39.8 % (37.0-47.0); Hemoglobin 13.2 g/dL (12.2-16.2); Lymphocytes # 2.3 K/mm3 (0.7-4.5); Lymphocytes % 41.6 % (10-50); Mean Corpuscular HGB Conc 33.2 g/dL (31.8-35.4); Mean Corpuscular Hemoglobin 30.5 pg (27.0-31.2); Mean Corpuscular Volume 91.8 fl (81-99); Mean Platelet Volume 8.9 fl (7.4-10.4); Monocytes # 0.4 K/mm3 (0.1-1.0); Monocytes % 7.2 % (1.7-9.3); Neutrophils # 2.6 K/mm3 (1.8-7.8); Neutrophils % 47.7 % (37.0-80.0); Platelet Count 185 K/mm3 (142-424); Red Blood Count 4.34 M/mm3 (4.20-5.40); Red Cell Distribution Width 13.4 % (11.5-17.5); White Blood Count 5.5 K/mm3 (4.8-10.8)
[2023-03-19 23:35] LABS: VBG Base Excess 12.9 mmol/L (-2.4-2.3); VBG HCO3 38.3 mmol/L (23-30); VBG Oxygen Saturation 98.5 % (50-70); VBG PH 7.36 mmol/L (7.31-7.41); VBG PO2 117.3 mmol/L (28-40); VBG Total CO2 40.4 mmol/L (23-27)
[2023-03-19 23:40] LABS: VBG PCO2 69.2 mmol/L (35-51)
[2023-03-19 23:46] LABS: Alanine Aminotransferase 16 U/L (12-78); Albumin Level 4.4 g/dl (3.5-5.0); Albumin/Globulin Ratio 1.4 (1.1-1.8); Alkaline Phosphatase 28 U/L (38-126); Anion Gap 9.8 mEq/L (5-15); Aspartate Amino Transferase 30 U/L (14-36); Bilirubin,Total 0.3 mg/dl (0.2-1.3); Blood Urea Nitrogen 16 mg/dl (7-17); Carbon Dioxide 39 mmol/L (22.0-30.0); Chloride 96 mmol/L (98-107); Creatinine Clearance Estimated 54 mL/min (50-200); Estimated Glomerular Filt Rate 162 ml/min (>60); GFR (African American) 196 ML/MIN (>60); Globulin 3.1 g/dL (1.3-3.2); Glucose 141 mg/dl (74-100); Lactic Acid 0.8 mmol/L (0.7-2.1); Lipase 48 U/L (23-300); Potassium 4.8 mmoL/L (3.5-5.1); Sodium 140 mmol/L (136-145); Total Protein,Serum 7.5 g/dl (6.3-8.2)
--- NOTE | 2023-03-19 23:46 | HMH.EDGENADL ---
Discharge Plan Disposition Patient Disposition: Admitted Condition: Good Prescriptions Prescriptions: No Action lisinopril 10 mg tablet 10 mg PO DAILY tizanidine 4 mg capsule 8 mg PO QIDP PRN (Reason: muscle spasms) clonazepam [Klonopin] 0.5 mg tablet 0.5 mg PO BID 30 Days Qty: 60 0RF sertraline 100 mg tablet See Rx Instructions .ROUTE .COMPLEX Qty: 30 0RF Dose Instruction: TAKE ONE TABLET BY MOUTH ONCE A DAY Rx Instructions: TAKE ONE TABLET BY MOUTH ONCE A DAY ondansetron 4 mg tablet,disintegrating 4 mg PO Q8H PRN (Reason: nausea and vomiting) Qty: 20 0RF atorvastatin [Lipitor] 10 mg tablet 10 mg PO HS Qty: 90 2RF Jardiance 10 mg tablet See Rx Instructions .ROUTE .COMPLEX Qty: 90 2RF Dose Instruction: TAKE ONE TABLET BY MOUTH ONCE A DAY Rx Instructions: TAKE ONE TABLET BY MOUTH ONCE A DAY metformin 500 mg tablet extended release 24hr 500 mg PO DAILY Qty: 90 0RF metoprolol tartrate 25 mg tablet 12.5 mg PO BID Qty: 90 0RF pantoprazole 40 mg tablet,delayed release (DR/EC) 40 mg PO DAILY Qty: 90 2RF ondansetron HCl 4 mg tablet 4 mg PO BID PRN (Reason: nausea and vomiting) Qty: 60 1RF fexofenadine 180 mg tablet See Rx Instructions .ROUTE .COMPLEX Qty: 30 0RF Dose Instruction: TAKE ONE TABLET BY MOUTH ONCE A DAY FOR ALLERGY SYMPTOMS Rx Instructions: TAKE ONE TABLET BY MOUTH ONCE A DAY FOR ALLERGY SYMPTOMS gabapentin 800 mg tablet 800 mg PO TID Qty: 90 0RF ipratropium-albuterol 0.5 mg-3 mg(2.5 mg base)/3 mL solution for nebulization 3 ml inhalation Q6RT montelukast 10 MG tablet 10 mg PO PM Referrals Follow up/Referrals: Raad Marsh MD [Primary Care Provider] - See instructions Clinical Impressions Clinical Impression: Abdominal pain, Acute exacerbation of chronic obstructive pulmonary disease, Chest pain, Pulmonary nodule, Acute and chronic respiratory failure Instructions Patient Instructions: DI for Acute Abdominal Pain Discharge ED Provider: Portia Sebastian General Adult HPI General Chief complaint: Abdominal Pain Stated complaint: burning that starts in abdomen/ascends to chest Time Seen by Provider: 10/23/23 23:22 Mode of Arrival: EMS Source of Information: Patient Limitations: Physical Limitations Description of Symptoms (Recalled from ER Triage Doc. by RN): Patient came in with c/o burning in ABD. History of Present Illness HPI narrative: This patient is a 62-year-old female with a history of COPD on 2 L nasal cannula, heart failure preserved ejection fraction, generalized anxiety disorder, hiatal hernia, diabetes, and hyperlipidemia presenting to the emergency department by EMS for evaluation with concern for abdominal pain, chest pain, and shortness of breath. She notes that she started having abdominal burning, nausea, and vomiting that started approximately 5 days ago. It has progressively worsened since, and now she is having difficulty breathing. The pain goes up into her chest now. EMS reports they gave her a DuoNeb for wheezing in route, which was ongoing upon arrival. They note sinus tachycardia but otherwise reassuring vital signs. History is limited due to patient's increased work of breathing and acuity of condition. Related Data Home Medications Medication Instructions Recorded Confirmed montelukast 10 mg tablet 10 mg PO PM Allergy symptoms 12/04/21 02/07/23 lisinopril 10 mg tablet 10 mg PO DAILY Heart disease 08/30/22 02/07/23 tizanidine 4 mg capsule 8 mg PO QIDP PRN muscle spasms 08/30/22 02/07/23 ipratropium 0.5 mg-albuterol 3 mg 3 ml inhalation Q6RT shortness of 09/25/22 02/07/23 (2.5 mg base)/3 mL nebulization breath soln Previous Rx's Medication Instructions Recorded sertraline 100 mg tablet See Rx Instructions .Route 09/27/22 .COMPLEX #30 tabs ondansetron 4 mg disintegrating 4 mg PO Q8H PRN nausea and 11/14/22 tablet vomiting #20 tabs
[2023-03-19 23:57] LABS: NT Pro Brain Natriuretic Pep. < 20.0 pg/mL (0-125)
[2023-03-20] VITALS (8 sets, daily range): BP systolic 103–163; BP diastolic 69–89; PULSE 80–147; RESP 17–22; TEMP 36.5–37.2; O2SAT 90–97; BMI 21.1
--- NOTE | 2023-03-20 | CT_ITS ---
PROCEDURE INFORMATION: Exam: CTA Chest With Contrast Exam date and time: 03/20/2023 12:14 AM Age: 62 years old Clinical indication: Shortness of breath; Sternal or substernal pain; Additional info: Chest/abd pain, SOA TECHNIQUE: Imaging protocol: Computed tomographic angiography of the chest with contrast. Exam focused on the arteries. 3D rendering (Not supervised by radiologist): MIP and/or 3D reconstructed images were created by the technologist. Radiation optimization: All CT scans at this facility use at least one of these dose optimization techniques: automated exposure control; mA and/or kV adjustment per patient size (includes targeted exams where dose is matched to clinical indication); or iterative reconstruction. Contrast material: ISOVUE; Contrast volume: 75 ml; Contrast route: INTRAVENOUS (IV); REPORTING DATA: Count of CT and Cardiac NM exams in prior 12 months: This patient has received 5 known CTs and 0 known cardiac nuclear medicine studies in the 12 months prior to the current study. COMPARISON: CT ANGIO CHEST PE PROTOCOL 07/12/2022 12:35 PM FINDINGS: Pulmonary arteries: Normal. No pulmonary emboli. Aorta: Mild atherosclerotic changes of the thoracic aorta without aneurysmal dilatation. Lungs: Emphysema. 2.5 cm spiculated right upper lobe apical segment nodule. Multiple additional scattered sub 6 mm pulmonary micro nodules. Pleural spaces: Unremarkable. No pneumothorax. No pleural effusion. Heart: Unremarkable. No cardiomegaly. No pericardial effusion. Coronary arteries: No significant coronary artery calcifications. Lymph nodes: Small calcified right hilar lymph node. Gallbladder and bile ducts: Postsurgical changes of cholecystectomy. Bones/joints: Unremarkable. No acute fracture. Soft tissues: Small fat containing upper ventral abdominal wall hernia. IMPRESSION: 1. No pulmonary artery embolism. 2. 2.5 cm spiculated right upper lobe apical segment nodule, new from CT 07/12/2022. As this is a highly suspicious nodule, consider non-emergent PET/CT, or tissue sampling. (Reference: Mer) COMMENTS: In the absence of a history or active diagnosis of lung cancer, it is recommended that this patient with emphysema be evaluated for enrollment in a low dose CT lung cancer screening program. REFERENCES: Mer Flanagan et al. Guidelines for Management of Incidental Pulmonary Nodules Detected on CT Images: From the Fleischner Society 2017. Radiology. 2017;284(1):228-243.
--- NOTE | 2023-03-20 | CT_ITS ---
PROCEDURE INFORMATION: Exam: CT Abdomen And Pelvis With Contrast Exam date and time: 03/20/2023 12:14 AM Age: 62 years old Clinical indication: Abdominal pain; Additional info: Chest/abd pain, SOA TECHNIQUE: Imaging protocol: Computed tomography of the abdomen and pelvis with contrast. Radiation optimization: All CT scans at this facility use at least one of these dose optimization techniques: automated exposure control; mA and/or kV adjustment per patient size (includes targeted exams where dose is matched to clinical indication); or iterative reconstruction. Contrast material: ISOVUE; Contrast volume: 75 ml; Contrast route: IV; REPORTING DATA: Count of CT and Cardiac NM exams in prior 12 months: This patient has received 5 known CTs and 0 known cardiac nuclear medicine studies in the 12 months prior to the current study. COMPARISON: CT ABDOMEN PELVIS W CON 09/24/2022 5:14 PM FINDINGS: Liver: Stable subcentimeter hypodense focus within hepatic segment 8. Gallbladder and bile ducts: Postsurgical changes of cholecystectomy. Pancreas: Fatty pancreatic atrophy. Spleen: Splenic calcification. Adrenal glands: Normal. No mass. Kidneys and ureters: Normal. No hydronephrosis. Stomach and bowel: Moderate colonic stool. No obstruction. No mucosal thickening. Appendix: No evidence of appendicitis. Possibly surgically absent. Intraperitoneal space: Unremarkable. No free air. No significant fluid collection. Vasculature: Moderate atherosclerotic changes of the abdominal aorta and iliac arteries without aneurysmal dilatation. Lymph nodes: Unremarkable. No enlarged lymph nodes. Urinary bladder: Unremarkable as visualized. Reproductive: Postsurgical changes of hysterectomy. Bones/joints: Unremarkable. No acute fracture. Soft tissues: Small fat containing upper ventral abdominal wall hernia. IMPRESSION: No acute findings.
[2023-03-20 00:04] LABS: Procalcitonin < 0.030 ng/mL (0.0-2.0); T4 (Thyroxine) 11.3 ug/dl (5.53-11.0); Troponin I < 0.01 ng/ml (0.00-0.034)
[2023-03-20 00:17] LABS: Thyroid Stimulating Hormone 0.27 uIU/mL (0.465-4.68)
--- NOTE | 2023-03-20 02:00 | ECG_ITS ---
APPROVED REPORT Exam: Resting ECG HR:130 bpm ECG Measurements Heart Rate 130 AXES AL 169 P 95 QRSd 90 QRS 96 QT 283 T 83 QTc 360 Conclusion SINUS TACHYCARDIA BORDERLINE RIGHT AXIS DEVIATION [QRS AXIS > 90] ABNORMAL RHYTHM ECG UNCONFIRMED REPORT Electronically signed by : Case Barrios MD 03/20/2023 14:40:36
--- NOTE | 2023-03-20 02:20 | PC.NURSE ---
rounded on patient with no new complaints, call light at bedside.
[2023-03-20 03:02] LABS: Troponin I < 0.01 ng/ml (0.00-0.034)
--- NOTE | 2023-03-20 03:34 | PC.NURSE ---
tried to call report to Marisa . said she would call me back.
--- NOTE | 2023-03-20 03:45 | PC.NURSE ---
report called to Selena BURDICK
--- NOTE | 2023-03-20 03:50 | PC.NURSE ---
Addendum entered by Maty Mireles RN 03/20/23 03:52: also informed hospitalist of need for case management consult r/t living situation and weakness (pt wants rehab/placement), order entered. Original Note: contacted hospitalist from stool regimen face to face r/t large stool burden per CT and abd pain. waiting for orders
--- NOTE | 2023-03-20 03:51 | EXP.HP ---
History of Present Illness *Admission Date: 03/20/23 *Reason for visit:: SOB and abdominal pain *History of present illness: This is a 62-year-old female with PMHx of COPD on 2 L nasal cannula, HFpEF, generalized anxiety disorder, hiatal hernia, diabetes, and hyperlipidemia brought to the ER by EMS c/o abdominal pain, chest pain, and shortness of breath. Patient reported started having abdominal burning, nausea, and vomiting approximately 5 days ago and it has progressively worsened since, and now she is having difficulty breathing. The pain goes up into her chest now. Nothing tried at home made her feel better. EMS reported they gave her a DuoNeb for wheezing in route, which was ongoing upon arrival. She is on sinus tachycardia but otherwise reassuring vital signs. History is limited due to patient's increased work of breathing and acuity of condition. admitted for treatment. [facility] Disclaimer: The information contained in this section may have been updated after the patient was seen, as this information can be updated by other users. Medical History (Updated 03/20/23 @ 11:57 by Mary Pierre MD) Acute and chronic respiratory failure with hypercapnia Chronic hypercapnic respiratory failure Chronic respiratory failure with hypoxia and hypercapnia Chronic respiratory failure with hypoxia, on home oxygen therapy Chronically on benzodiazepine therapy COPD (chronic obstructive pulmonary disease) COPD exacerbation COPD exacerbation COVID-19 COVID-19 virus infection Decubitus ulcer limited to breakdown of skin (stage 2) Dependence on non-invasive ventilation Generalized anxiety disorder GERD (gastroesophageal reflux disease) Hypertension Suicidal thoughts Surgical History History of cholecystectomy History of colonoscopy History of esophagogastroduodenoscopy History of hysterectomy Family History Mother Cancer Father Pancreatic cancer Social History (Updated 03/20/23 @ 04:48 by Maty Mireles RN) Smoking Status: Former smoker tobacco type: cigarettes packs per day: 0 how long ago did patient quit smokin hours second hand exposure: Yes alcohol intake: never substance use type: denies use current occupational status: disabled Travel in the last 8 weeks: None household members: family housing: house number of children: 1 caffeine: Yes Review of Systems Review of Systems Review of systems:: pertinent systems reviewed and negative unless documented below Meds Home Medications and Allergies Home Medications Medication Instructions Recorded Confirmed Type montelukast 10 mg tablet 10 mg PO PM Allergy symptoms 12/04/21 03/20/23 History lisinopril 10 mg tablet 10 mg PO DAILY Heart disease 08/30/22 03/20/23 History tizanidine 4 mg capsule 8 mg PO QIDP PRN muscle spasms 08/30/22 03/20/23 History clonazepam 0.5 mg tablet (Klonopin) 0.5 mg PO BID Anxiety 30 days #60 02/07/23 03/20/23 Rx tabs atorvastatin 10 mg tablet (Lipitor) 10 mg PO HS #90 tabs 02/26/23 03/20/23 Rx metformin 500 mg tablet,extended 500 mg PO DAILY Diabetes #90 tabs 02/26/23 03/20/23 Rx release 24hr metoprolol tartrate 25 mg tablet 12.5 mg PO BID #90 tabs 02/26/23 03/20/23 Rx ondansetron HCl 4 mg tablet 4 mg PO BID PRN nausea and 02/27/23 03/20/23 Rx vomiting #60 tabs gabapentin 800 mg tablet 800 mg PO TID Pain #90 tabs 03/09/23 03/20/23 Rx empagliflozin 10 mg tablet 10 mg PO DAILY 03/20/23 03/20/23 History (Jardiance) fexofenadine 180 mg tablet 180 mg PO DAILY 03/20/23 03/20/23 History ipratropium 20 mcg-albuterol 100 1 puff inhalation BID 03/20/23 03/20/23 History mcg/actuation mist for inhalation (Combivent Respimat) pantoprazole 40 mg tablet,delayed 40 mg PO DAILY 03/20/23 03/20/23 History release sertraline 100 mg tablet 100 mg PO DAILY 03/20/23 03/20/23 History New P
--- NOTE | 2023-03-20 04:00 | PC.NURSE ---
pt arrived to floor via wheelchair @[id number]
--- NOTE | 2023-03-20 04:41 | PC.NURSE ---
pt reported thoughts of suicide for the past 5 years. Stated I want to kill myself but trying to think of a way to do it without hurting myself I am miserable (Mary Neely, SRNA was present also during statement) pt verbalized she feels this way r/t COPD and disease processes. place flagged high risk on suicide assessment, hospitalist notified, pt is 1:1 within arms reach (TODD Golden in room), charge and house notified, trash cans, pens, curtains, gowns removed from room. pt is on o2 2L NC. verbalized understanding of the situation, A&OX4.
--- NOTE | 2023-03-20 04:47 | PC.NURSE ---
Suicide protocol initiated on pt due to high risk assessment. Pt placed in 1 on 1 observation with q15min checks. Staff at bedside within arms reach of pt. Cords, trash cans, and curtain removed from room. Pt placed in paper gown. Diet ordered to have disposable dishes/plastic utensils. Lamb suicide severity rating scale ordered to be performed q shift.
[2023-03-20 06:01] LABS: POC Glucose,Bedside 210 (70-110)
[2023-03-20 06:16] LABS: Basophils % 0.1 % (0.1-2.0); Eosinophils % 0.2 % (0.1-12.0); Hematocrit 43.1 % (37.0-47.0); Hemoglobin 13.9 g/dL (12.2-16.2); Lymphocytes # 0.4 K/mm3 (0.7-4.5); Lymphocytes % 4.8 % (10-50); Mean Corpuscular HGB Conc 32.2 g/dL (31.8-35.4); Mean Corpuscular Hemoglobin 30.2 pg (27.0-31.2); Mean Corpuscular Volume 93.6 fl (81-99); Mean Platelet Volume 8.8 fl (7.4-10.4); Monocytes # 0.1 K/mm3 (0.1-1.0); Monocytes % 1.4 % (1.7-9.3); Neutrophils # 7.4 K/mm3 (1.8-7.8); Neutrophils % 93.6 % (37.0-80.0); Platelet Count 196 K/mm3 (142-424); Red Cell Distribution Width 13.1 % (11.5-17.5); White Blood Count 7.9 K/mm3 (4.8-10.8)
[2023-03-20 06:19] LABS: MANUAL DIFFERENTIAL MANUAL DIFFERENTIAL (MANUAL DIFF)
[2023-03-20 06:26] LABS: Chloride 97 mmol/L (98-107); Potassium 4.6 mmoL/L (3.5-5.1); Sodium 142 mmol/L (136-145)
[2023-03-20 06:29] LABS: Alanine Aminotransferase 23 U/L (12-78); Albumin Level 4.8 g/dl (3.5-5.0); Albumin/Globulin Ratio 1.7 (1.1-1.8); Alkaline Phosphatase 49 U/L (38-126); Anion Gap 11.6 mEq/L (5-15); Aspartate Amino Transferase 30 U/L (14-36); Blood Urea Nitrogen 17 mg/dl (7-17); Carbon Dioxide 38 mmol/L (22.0-30.0); Creatinine Clearance Estimated 57 mL/min (50-200); Estimated Glomerular Filt Rate 125 ml/min (>60); GFR (African American) 152 ML/MIN (>60); Globulin 2.9 g/dL (1.3-3.2); Total Protein,Serum 7.7 g/dl (6.3-8.2)
[2023-03-20 06:30] LABS: Calcium 9.4 mg/dl (8.4-10.2); Glucose 194 mg/dl (74-100)
[2023-03-20 06:33] LABS: Bilirubin,Total 0.1 mg/dl (0.2-1.3); Troponin I < 0.01 ng/ml (0.00-0.034)
[2023-03-20 07:05] LABS: Lymphocytes % 4 % (10-50); Neutrophils % 96 % (42-76); Total Cells Counted 100
[2023-03-20 07:08] LABS: Hypochromasia 1+; Platelet Estimate Normal; RBC Morphology Normal
--- NOTE | 2023-03-20 08:22 | HMH.PHAINT1 ---
Pharmacy Intervention Comments: HOME MEDICATION LIST VERIFIED USING LIST FROM OUTPATIENT PHARMACY
--- NOTE | 2023-03-20 09:44 | HMH.OTEV ---
OT Inpatient Evaluation Rehab OT IP Evaluation Start: 03/20/23 07:05 Freq: ONCE Status: Active Protocol: Document 03/20/23 09:30 FAMILIA (Rec: 03/20/23 09:38 [facility] [id number]) Rehab OT IP Assessment Subjective History Pt oriented x 3 on arrival. Pt agreeable to engage in therapy evaluation. Pt was admitted on 03/20/23 due to COPD exacerbation. This is a 62-year-old female with PMHx of COPD on 2 L nasal cannula, HFpEF, generalized anxiety disorder, hiatal hernia, diabetes, and hyperlipidemia brought to the ER by EMS c/o abdominal pain, chest pain, and shortness of breath. Patient reported started having abdominal burning, nausea, and vomiting approximately 5 days ago and it has progressively worsened since, and now she is having difficulty breathing. The pain goes up into her chest now. Nothing tried at home made her feel better. EMS reported they gave her a DuoNeb for wheezing in route, which was ongoing upon arrival . She is on sinus tachycardia but otherwise reassuring vital signs. History is limited due to patient's increased work of breathing and acuity of condition. admitted for treatment. Prior to being in the hospital , pt lived at home with her sister. Pt reports she was able to complete dressing independently, but required assistance with bathing from her sister. She was also dependent upon sister for completion of all IADLs such as cleaning, cooking, laundry, etc. Pt does use a rolling walker at times through out the home. Pt's sister has
--- NOTE | 2023-03-20 09:54 | EXP.PULM.CON ---
History of Present Illness History of present illness: Ms. Banerjee is a 62-year-old female COPD on long-term oxygen using trelegy Inhaler, heart failure preserved EF presented to the ER complaining of worsening respiratory distress, with abdominal pain and chest pain. [facility] Disclaimer: The information contained in this section may have been updated after the patient was seen, as this information can be updated by other users. Medical History (Updated 03/20/23 @ 11:57 by Mary Pierre MD) Acute and chronic respiratory failure with hypercapnia Chronic hypercapnic respiratory failure Chronic respiratory failure with hypoxia and hypercapnia Chronic respiratory failure with hypoxia, on home oxygen therapy Chronically on benzodiazepine therapy COPD (chronic obstructive pulmonary disease) COPD exacerbation COPD exacerbation COVID-19 COVID-19 virus infection Decubitus ulcer limited to breakdown of skin (stage 2) Dependence on non-invasive ventilation Generalized anxiety disorder GERD (gastroesophageal reflux disease) Hypertension Suicidal thoughts Surgical History History of cholecystectomy History of colonoscopy History of esophagogastroduodenoscopy History of hysterectomy Family History Mother Cancer Father Pancreatic cancer Social History (Updated 03/20/23 @ 04:48 by Maty Mireles RN) Smoking Status: Former smoker tobacco type: cigarettes packs per day: 0 how long ago did patient quit smokin hours second hand exposure: Yes alcohol intake: never substance use type: denies use current occupational status: disabled Travel in the last 8 weeks: None household members: family housing: house number of children: 1 caffeine: Yes Review of Systems Constitutional Constitutional: Reports anorexia, Reports body ache(s) and Reports fatigue Eyes Eyes: Denies eye discharge, Denies dry eyes, Denies irritation and Denies itchy eyes ENT Ears, Nose, Mouth, and Throat: Denies epistaxis, Denies facial pain, Denies lip swelling and Denies throat swelling *Cardiovascular Cardiovascular: Reports chest pain, Reports dyspnea and Reports dyspnea on exertion *Respiratory Respiratory: Reports chest congestion, Reports cough, Reports dyspnea, Reports dyspnea on exertion, Denies excessive phlegm production and Denies wheezing *Gastrointestinal Gastrointestinal: Reports abdominal pain, Reports belching and Denies cramping *Musculoskeletal Musculoskeletal: Reports back pain, Reports myalgias and Reports other (No small joint swelling or Pain) Psychiatric Psychiatric: Denies homicidal ideation and Denies suicidal ideation Endocrine Endocrine: Reports fatigue and Denies heat intolerance Hematologic/Lymphatic Hematologic/Lymphatic: Denies easy bleeding and Denies lymphadenopathy Allergic/Immunologic Allergic/Immunologic: Denies itchy eyes, Denies lip swelling, Denies throat swelling and Denies wheezing Pulmonology Exam Inpatient Vital signs and Labs for Last 24 Hours: Temp Pulse Resp BP Pulse Ox O2 Del Method O2 Flow Rate 99.0 F 147 H 19 163/69 H 93 L Room Air 1 03/20/23 07:48 03/20/23 07:48 03/20/23 07:48 03/20/23 07:48 03/20/23 07:48 03/20/23 09:00 03/20/23 09:00 Laboratory Results - last 24 hr 03/19/23 23:18: VBG pH 7.36, VBG pCO2 69.2 H, VBG pO2 117.3 H, VBG HCO3 38.3 H, VBG Total CO2 40.4 H, VBG O2 Saturation 98.5 H, VBG Base Excess 12.9 H 03/19/23 23:24: WBC 5.5, RBC 4.34, Hgb 13.2, Hct 39.8, MCV 91.8, MCH 30.5, MCHC 33.2, RDW 13.4, Plt Count 185, MPV 8.9, Neut % (Auto) 47.7, Lymph % (Auto) 41.6, [place] % (Auto) 7.2, Eos % (Auto) 2.8, Baso % (Auto) 0.7, Neut # (Auto) 2.6, Lymph # (Auto) 2.3, [place] # (Auto) 0.4, Eos # (Auto) 0.2, Baso # (Auto) 0.0, Sodium 140, Potassium 4.8, Chloride 96 L, Carbon Dioxide 39 H, Anion Gap 9.8, BUN 16, Creatinine 0.40 L, Estimated Creat Clear 54, Estimate
--- NOTE | 2023-03-20 10:04 | SW/DCPLANNER ---
Addendum entered by Gisele Reyes 03/21/23 14:15: Per [facility] patient has been approved SNF level of care and can admit today. Dr Bermeo stated that he will discharge patient to [facility] today. I have relayed message to nursing staff. Addendum entered by Giesle Reyes 03/20/23 14:43: [facility] stated they can accept this patient and precert has been started at this time. I will update patient, nursing staff and MD. Original Note: I received a consult on this patient regarding placement. PT/OT evaluated patient and recommended SNF level of care. Patient currently resides at home w/ her sister whom is not able to assist her. Patient is requesting to go back to [facility] for SNF level of care. Patient information will be faxed to [facility] this AM. I will follow up alicia/ [facility] once patient information is reviewed. Discharge date is unknown at this time.
--- NOTE | 2023-03-20 10:04 | HMH.PTEV ---
Physical Therapy Evaluation Rehab PT IP Evaluation Start: 03/20/23 07:05 Freq: ONCE Status: Active Protocol: Document 03/20/23 09:59 PHORNE (Rec: 03/20/23 10:04 PHORNE [id number]) Subjective/History History History 62 yowf adm to [facility] with COPD exac. She has hx of HF, anxiety, depression, DM, HLD. She reports she lives with her sister, who is generally her farm or ranch animal caretaker. However, her sister has been ill recently as well and they have both been struggling to care for themselves. She reports she has RW and W/C that she uses for mobility at baseline, but she walks only limited amounts at best. SHe wears oxygen via NC at all times at home and requires assistance for all ADLs. Subjective Subjective Pt reports feeling tired this am and cold after just having a shower. She agrees to mobility assessment. New diagnosis of cancer in past 12 No months? Rehab PT IP Eval Objective Appearance Patient Behavior Appropriate Patient Orientation Time Difficulty following instructions none Speech Pattern Clear Ambulation Patient Able to Ambulate Yes Ambulation Observation IP General Gait Pattern Observation Ataxic Gait Ambulation Distance (feet) 10 Ambulation Assistive Device None Ambulation Ability Minimal x 2 (25% assist) Balance Ability to Arise Able, uses arms to help Sitting Balance Steady, safe Standing Balance Steady, wide stance Dynamic Sitting Balance Ability Good Dynamic Standing Balance Ability Poor Transfers Bed Transfer Ability Minimal x 1 (25% assist) Chair Transfer Ability Minimal x 1 (25% assist) Sit to Stand Bed Transfer Ability Minimal x 1 (25% assist) Sit to Stand Chair Transfer Ability Minimal x 1 (25% assist) ROM All Extremities PT ROM Status WFL MMT All Extremities PT MMT WFL Rehab PT IP prob,goals,plan Problems Date of Evaluation: 03/20/23 PT IP Problems Bed Mobility,Transfers,Gait Rehab Potential Rehab Potential Good Plan PT Intervention Plan Bed Mobility,Transfers,Gait, Self care,Therapeutic Exerc
--- NOTE | 2023-03-20 11:27 | PC.NURSE ---
Per Dr Bermeo move pt to room 215. Pt can come out of 1:1 observation, no longer needed at this time.
[2023-03-20 11:35] LABS: POC Glucose,Bedside 141 (70-110)
--- NOTE | 2023-03-20 16:25 | DIET.NUTRFU ---
RD saw patient today, she indicated on interview she had chewing or swallowing issues. she does not wear teeth. Offered to downgrade diet and she wanted to continue current diet and just order softer foods. She reports weight loss do to small meals secondary to COPD. Has been drinking ensure at home, she is diabetic started glucerna TID for extra protein and calories.
--- NOTE | 2023-03-20 17:54 | PC.NURSE ---
pt has done very well this shift. iv came out, notifed . leighton clark okay with no iv at this time. pt c/o a burning sensation in the abd that radiates to head, md aware. pt slept well after am meds. o2 at 1.5l nc, tolerating well. cb within reach.waiting for placement.
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
[2023-03-20 20:28] LABS: POC Glucose,Bedside 143 (70-110)
[2023-03-21 04:00] VITALS: BP 103/64; PULSE 78; RESP 16; TEMP 36.7; O2SAT 96; BMI 21.2
[2023-03-21 06:14] VITALS: O2SAT 89
[2023-03-21 06:19] LABS: Basophils % 0.6 % (0.1-2.0); Eosinophils # 0.1 K/mm3 (0.0-0.4); Eosinophils % 1.8 % (0.1-12.0); Hematocrit 38.5 % (37.0-47.0); Hemoglobin 12.7 g/dL (12.2-16.2); Lymphocytes % 40.1 % (10-50); Mean Corpuscular Hemoglobin 30.6 pg (27.0-31.2); Mean Corpuscular Volume 92.7 fl (81-99); Mean Platelet Volume 8.9 fl (7.4-10.4); Monocytes # 0.5 K/mm3 (0.1-1.0); Monocytes % 6.8 % (1.7-9.3); Neutrophils # 3.8 K/mm3 (1.8-7.8); Neutrophils % 50.6 % (37.0-80.0); Platelet Count 185 K/mm3 (142-424); Red Blood Count 4.15 M/mm3 (4.20-5.40); Red Cell Distribution Width 13.3 % (11.5-17.5); White Blood Count 7.5 K/mm3 (4.8-10.8)
[2023-03-21 06:24] LABS: Chloride 98 mmol/L (98-107)
[2023-03-21 06:25] LABS: Potassium 4.6 mmoL/L (3.5-5.1); Sodium 140 mmol/L (136-145)
[2023-03-21 06:27] LABS: Alanine Aminotransferase 15 U/L (12-78); Alkaline Phosphatase 40 U/L (38-126); Aspartate Amino Transferase 23 U/L (14-36); Blood Urea Nitrogen 19 mg/dl (7-17); Creatinine Clearance Estimated 57 mL/min (50-200); Estimated Glomerular Filt Rate 125 ml/min (>60); GFR (African American) 152 ML/MIN (>60)
[2023-03-21 06:28] LABS: Albumin/Globulin Ratio 1.6 (1.1-1.8); Calcium 8.9 mg/dl (8.4-10.2); Globulin 2.5 g/dL (1.3-3.2); Glucose 115 mg/dl (74-100); Magnesium 1.9 mg/dl (1.6-2.3); Total Protein,Serum 6.5 g/dl (6.3-8.2)
[2023-03-21 06:35] LABS: Anion Gap 8.6 mEq/L (5-15); Carbon Dioxide 38 mmol/L (22.0-30.0)
[2023-03-21 07:13] LABS: Bilirubin,Total 0.1 mg/dl (0.2-1.3)
[2023-03-21 08:00] VITALS: BP 117/75; PULSE 88; RESP 18; TEMP 36.8; O2SAT 90
--- NOTE | 2023-03-21 09:48 | EXP.PULM.PN ---
Subjective *Date: 03/21/23 *Time: 12:18 Interval history: No acute respiratory vents overnight. Stable oxygen requirements. Pulmonology Exam Inpatient Vital signs and Labs for Last 24 Hours: Temp Pulse Resp BP Pulse Ox O2 Del Method O2 Flow Rate 98.2 F 88 18 117/75 90 L Nasal Cannula 2 03/21/23 08:00 03/21/23 08:00 03/21/23 08:00 03/21/23 08:00 03/21/23 08:00 03/21/23 09:20 03/21/23 09:20 Laboratory Results - last 24 hr 03/20/23 11:28: POC Glucose 141 H 03/20/23 20:21: POC Glucose 143 H 03/21/23 05:45: WBC 7.5, RBC 4.15 L, Hgb 12.7, Hct 38.5, MCV 92.7, MCH 30.6, MCHC 33.0, RDW 13.3, Plt Count 185, MPV 8.9, Neut % (Auto) 50.6, Lymph % (Auto) 40.1, [place]ucks % (Auto) 6.8, Eos % (Auto) 1.8, Baso % (Auto) 0.6, Neut # (Auto) 3.8, Lymph # (Auto) 3.0, Bucks # (Auto) 0.5, Eos # (Auto) 0.1, Baso # (Auto) 0.0, Sodium 140, Potassium 4.6, Chloride 98, Carbon Dioxide 38 H, Anion Gap 8.6, BUN 19 H, Creatinine 0.50 L, Estimated Creat Clear 57, Estimated GFR 125, Est GFR ( Amer) 152, Glucose 115 H, Calcium 8.9, Magnesium 1.9, Total Bilirubin 0.1 L, AST 23, ALT 15 D, Alkaline Phosphatase 40, Total Protein 6.5, Albumin 4.0 D, Globulin 2.5, Albumin/Globulin Ratio 1.6 I & O for Labs for Last 24 Hours: Intake & Output 03/18/23 03/19/23 03/20/23 03/21/23 23:59 23:59 23:59 23:59 Intake Total 1650 / 1650 240 / 240 Output Total 1400 / 1400 402 / 402 Balance 250 / 250 -162 / -162 Weight 127 lb 134 lb 7 oz 135 lb 8 oz Constitutional: Present mild distress Head: Present normocephalic and atraumatic ENT: Present normal exam, normal oropharynx and mucous membranes moist Neck: Present normal inspection and full ROM Respiratory: Present normal respiratory effort and able to speak in complete sentences; Absent prolonged expiratory phase, respiratory distress or wheezes Cardiac: Present S1/S2, Tachycardia and radial pulses present GI: Present soft and distention; Absent tenderness or guarding Rectal (female): Present deferred (female): Present deferred Skin: Present intact; Absent cyanosis or jaundice Neuro: Present alert, awake and oriented x 3 Extremities: Present normal inspection; Absent clubbing or cyanosis Psychiatric: Present normal affect and cooperative Assessment and Plan *Assessment and plan (1) Pulmonary nodule: Status: Acute Category: Medical Code(s): R91.1 - Solitary pulmonary nodule (2) Chronic respiratory failure with hypoxia, on home oxygen therapy: Status: Acute Category: Medical Code(s): J96.11 - Chronic respiratory failure with hypoxia; Z99.81 - Dependence on supplemental oxygen (3) Acute and chronic respiratory failure with hypercapnia: Status: Acute Category: Medical Code(s): J96.22 - Acute and chronic respiratory failure with hypercapnia Plan Ms. Banerjee is a 62-year-old female COPD on long-term oxygen using trelegy Inhaler, heart failure preserved EF presented to the ER complaining of worsening respiratory distress, with abdominal pain and chest pain. Patient. Had a history hypercarbic respiratory failure supposed to be on BiPAP 20/8 rate of 16 and FiO2 of 35%. VBG on this admission showed evidence of hypercarbic respiratory failure and a pH of 7.36 PCO2 elevated elevated at 69.2. CTA on admission no airspace disease/consolidation. No pulmonary embolism. New right upper lobe spiculated nodule. Patient received steroids and nebulization therapies overnight. On initial consultation examination patient does not appear to be in any respiratory distress. Chest clear to auscultate with no wheezing. Oxygen requirements at baseline. Interval update: No acute respiratory events overnight. Stable oxygen garments. Plan: Continue home Trelegy 100 inhaler along with DuoNebs every 6 hours on as-needed basis Continue BiPAP 16/8 rate of 16 and FiO2 of 35% while asleep, recommend to continue upon discharge #Right upper lobe pulmonary nodule: Patient CT scan f
[2023-03-21 10:15] VITALS: PULSE 76; PULSE 78
[2023-03-21 11:44] LABS: POC Glucose,Bedside 156 (70-110)
[2023-03-21 11:52] VITALS: BMI 21.2
--- NOTE | 2023-03-21 14:19 | EXP.DC.SUM ---
General Admission date:: 03/20/23 Discharge date: 03/21/23 HPI HPI HPI: This is a 62-year-old female with PMHx of COPD on 2 L nasal cannula, HFpEF, generalized anxiety disorder, hiatal hernia, diabetes, and hyperlipidemia brought to the ER by EMS c/o abdominal pain, chest pain, and shortness of breath. Patient reported started having abdominal burning, nausea, and vomiting approximately 5 days ago and it has progressively worsened since, and now she is having difficulty breathing. The pain goes up into her chest now. Nothing tried at home made her feel better. EMS reported they gave her a DuoNeb for wheezing in route, which was ongoing upon arrival. She is on sinus tachycardia but otherwise reassuring vital signs. History is limited due to patient's increased work of breathing and acuity of condition. admitted for treatment. Hospital Course Hospital Course Hospital Course: 62-year-old female with PMHx of COPD on 2 L nasal cannula, HFpEF, generalized anxiety disorder, hiatal hernia, diabetes, and hyperlipidemia brought to the ER by EMS c/o abdominal pain, chest pain, and shortness of breath. Upon arrival patient underwent douneb x3 round, remains on 2L oxygen with significant respiratory effort. CTA of chest does not showed any signs of PE. there is a new nodule in the right upper lobe, concerning for malignancy. CT of abdomen negative for acute process, there is a large amount of colonic stool. Blood gases showed hypercapnic with normal PH. discussed with ER doctor. Hospitalist admitted to observation status. Patient was seen by psychiatry and pulmonology. Stable for discharge to nursing facility for rehab. Problems addressed as follows during admission: -Acute on chronic hypercapnic respiratory failure: Admit patient for med-surg. Continue to require 2 L nasal cannula oxygen. Pulmonology was consulted. Continue DuoNebs and Trelegy. No signs of pneumonia. Will have follow-up with pulmonology for further evaluation of pulmonary nodule. Pulmonology recommend continuing patient's BiPAP at home. Patient states she has not unfortunately been on this for a year. Does not have a machine anymore. Would benefit from reevaluation in the outpatient setting with sleep study. -Unspecified abdominal pain: likely secondary to GERD, more consistent with constipation due to limited mobility. Continue home GERD regimen. Continue bowel regimen with stool softener daily. Goal of 1-2 soft stools daily. -HFpEf: stable, continue home medications. -anxiety and depression disorder: on clonazepam and sertraline at home. Behavioral health consult, patient having suicidal thoughts at home but no plan. Is depressed about her living situation and lack of care from her sister. Feels she would be happier at a alf. No active thoughts now that she is in the hospital and feels she is safe. Patient has had no behavioral disturbances. Is appropriate and safe for [facility]. Recommend continued follow-up with psychiatry for further management. -Diabetes: Continue home regimen of metformin and Jardiance. PT and OT evaluated, patient needs continued rehab due to debility. Recommend transfer to nursing facility. Stable at this time. Graciously excepted by [facility] for further care. Spent 35 minutes in discharge counseling, documentation, chart review, discussion with subspecialists, and direct care with patient. Exam Data for Last 24 hours Vital signs and Labs for Last 24 Hours: Temp Pulse Resp BP Pulse Ox O2 Del Method O2 Flow Rate 98.2 F 76 18 117/75 90 L Nasal Cannula 2 03/21/23 08:00 03/21/23 10:15 03/21/23 08:00 03/21/23 08:00 03/21/23 08:00 03/21/23 12:55 03/21/23 12:55 Laboratory Results - last 24 hr 03/20/23 20:21: POC Glucose 143 H 03/21/23 05:45: WBC 7.5, RBC 4.15 L, Hgb 12.7, Hct 38.5, MCV 92.7, MCH 30.6, MCHC 33.0, RDW 13.3, Plt Count 185, MPV 8.9, Neut % (Auto) 50.6, Lymph % (Auto) 40.1,
--- NOTE | 2023-03-21 15:24 | PC.NURSE ---
Report called to Isacc at [facility]
[2023-03-21 15:34] LABS: POC Glucose,Bedside 117 (70-110)
[2023-03-21 15:34] LABS: POC Glucose,Bedside 105 (70-110)
== END 2023-03-21 15:55 ==
LOC: ER 03-20 03:04 → 2ND 03-20 04:00
PROVIDERS: Internal Medicine Adolescent Medicine; Nurse Practitioner Family; Admitting Provider Internal Medicine; Emergency Provider Emergency Medicine; PCP Emergency Medicine; Visit Provider Internal Medicine
DX: R91.1 Solitary pulmonary nodule (principal); J96.11 Chronic respiratory failure with hypoxia; Z99.81 Dependence on supplemental oxygen; J96.22 Acute and chronic respiratory failure with hypercapnia; J44.1 Chronic obstructive pulmonary disease with (acute) exacerbation; R10.9 Unspecified abdominal pain; K21.9 Gastro-esophageal reflux disease without esophagitis; E78.5 Hyperlipidemia, unspecified; I50.32 Chronic diastolic (congestive) heart failure; F41.1 Generalized anxiety disorder; F32.A Depression, unspecified; E11.69 Type 2 diabetes mellitus with other specified complication; F06.31 Mood disorder due to known physiological condition with depressive features; Z86.16 Personal history of COVID-19; Z79.899 Other long term (current) drug therapy; Z79.84 Long term (current) use of oral hypoglycemic drugs
CPT/HCPCS: 36415; 71275; 74177; 80053; 82803; 82962; 83605; 83690; 83735; 83880; 84145; 84436; 84443; 84484; 85007; 85025; 93005; 94640; 94761; 97163; 97166; 97530; 97535; 99291; G0378; J2405; Q9967

== ENCOUNTER 2023-04-16 10:33 | Observation (INO) | payer MEDICARE, SELFPAY ==
[2023-04-16] VITALS (20 sets, daily range): BP systolic 83–129; BP diastolic 49–83; PULSE 70–104; RESP 16–21; TEMP 36.6–36.8; O2SAT 95–99; BMI 19.3; BMI 21.9
--- NOTE | 2023-04-16 10:44 | ECG_ITS ---
APPROVED REPORT Exam: Resting ECG HR:85 bpm ECG Measurements Heart Rate 85 AXES SC 150 P 90 QRSd 96 QRS 97 QT 353 T 79 QTc 396 Conclusion SINUS RHYTHM WITH SINUS ARRHYTHMIA POSSIBLE RIGHT ATRIAL ENLARGEMENT [0.25mV P-WAVE] BORDERLINE RIGHT AXIS DEVIATION [QRS AXIS > 90] ST ELEVATION, PROBABLY EARLY REPOLARIZATION [ST ELEVATION WITH NORMALLY INFLECTED T-WAVE] BORDERLINE ECG UNCONFIRMED REPORT Electronically signed by : Case Barrios MD 04/18/2023 17:15:54
[2023-04-16 10:48] LABS: Coronavirus 19, PCR Not Detected (NotDetected); Influenza A, PCR Not Detected (NotDetected); Influenza B, PCR Not Detected (NotDetected)
[2023-04-16 10:49] LABS: Basophils # 0.1 K/mm3 (0-0.2); Basophils % 0.8 % (0.1-2.0); Eosinophils # 0.1 K/mm3 (0.0-0.4); Eosinophils % 0.8 % (0.1-12.0); Hematocrit 44.7 % (37.0-47.0); Hemoglobin 14.1 g/dL (12.2-16.2); Lymphocytes # 1.5 K/mm3 (0.7-4.5); Lymphocytes % 24.1 % (10-50); Mean Corpuscular HGB Conc 31.6 g/dL (31.8-35.4); Mean Corpuscular Hemoglobin 29.5 pg (27.0-31.2); Mean Corpuscular Volume 93.3 fl (81-99); Mean Platelet Volume 8.5 fl (7.4-10.4); Monocytes # 0.3 K/mm3 (0.1-1.0); Monocytes % 4.9 % (1.7-9.3); Neutrophils # 4.3 K/mm3 (1.8-7.8); Neutrophils % 69.5 % (37.0-80.0); Platelet Count 193 K/mm3 (142-424); Red Blood Count 4.78 M/mm3 (4.20-5.40); Red Cell Distribution Width 13.3 % (11.5-17.5); White Blood Count 6.1 K/mm3 (4.8-10.8)
[2023-04-16 10:52] LABS: Alanine Aminotransferase 23 U/L (12-78); Albumin Level 4.6 g/dl (3.5-5.0); Albumin/Globulin Ratio 1.4 (1.1-1.8); Alkaline Phosphatase 55 U/L (38-126); Aspartate Amino Transferase 29 U/L (14-36); Bilirubin,Total 0.3 mg/dl (0.2-1.3); Blood Urea Nitrogen 15 mg/dl (7-17); Calcium 9.4 mg/dl (8.4-10.2); Chloride 92 mmol/L (98-107); Creatinine Clearance Estimated 51 mL/min (50-200); Estimated Glomerular Filt Rate 125 ml/min (>60); GFR (African American) 152 ML/MIN (>60); Globulin 3.3 g/dL (1.3-3.2); Glucose 171 mg/dl (74-100); Lipase 23 U/L (23-300); Magnesium 1.8 mg/dl (1.6-2.3); Potassium 3.6 mmoL/L (3.5-5.1); Sodium 140 mmol/L (136-145); Total Protein,Serum 7.9 g/dl (6.3-8.2)
[2023-04-16] MEDS: IPRATROPIUM/ALBUTEROL 3 ML NEB IH (10:54)
[2023-04-16] MEDS: ONDANSETRON 4MG/2ML VIAL 4 MG IV ×2 (10:54→13:26)
[2023-04-16 11:00] LABS: Anion Gap 11.6 mEq/L (5-15); Carbon Dioxide 40 mmol/L (22.0-30.0)
[2023-04-16 11:06] LABS: Troponin I < 0.01 ng/ml (0.00-0.034)
--- NOTE | 2023-04-16 11:52 | XR_ITS ---
FINAL REPORT CLINICAL HISTORY: soa COMPARISON: 09/24/2022 FINDINGS: A single portable view of the chest was obtained. The heart size and pulmonary vascularity are within normal limits. The mediastinum is within normal limits. No acute pulmonary abnormality is identified. The bony thorax is intact. IMPRESSION: No active cardiopulmonary disease. Reviewed, Interpreted and Dictated by Adriel Root III, MD Transcribed by Jennifer Sims Authenticated and . [facility]
--- NOTE | 2023-04-16 12:27 | ED_ITS ---
Discharge Plan Disposition Patient Disposition: Admitted Condition: Good Clinical Impressions Clinical Impression: Intractable nausea and vomiting Discharge ED Provider: Portia Sebastian General Adult HPI General Chief complaint: Nausea/Vomiting/Diarrhea Stated complaint: Vomiting Time Seen by Provider: 04/16/23 10:34 Mode of Arrival: EMS Source of Information: Patient, EMS and Medical Record Limitations: No Limitations Description of Symptoms (Recalled from ER Triage Doc. by RN): c/o vomiting 4-5 times this morning and weakness. PT states that she just got out of a group home for rehab, pt states that she was released Sunday from the group home, she has had issues with vomiting for 3-4 years, STates that this episode is no different than the past ones. Took medicine for nausea before she left the house. History of Present Illness HPI narrative: This patient is a 62-year-old female with a history of COPD with chronic respiratory failure on 2 L nasal cannula at home, CHF, hypertension, hyperlipidemia, prediabetes, GERD, immobility, and anxiety presenting to the emergency department for evaluation with concern for generalized weakness, daniele sea, and vomiting since Sunday. She notes that she was recently admitted to the group home approximately a month ago after being admitted here to the hospital for respiratory failure. She states that she spent a month there and was discharged home Sunday to live with her sister. She notes that since going home, she has felt awful. She has had intractable nausea and vomiting and has not been able to keep anything down. She denies any associated pain. She denies any fevers, chills, congestion, changes bowel movements, dysuria, or other concerns. She does note chronic cough and shortness of breath related to her COPD. She notes compliance with her medications. Related Data Home Medications Medication Instructions Recorded Confirmed montelukast 10 mg tablet 10 mg PO PM Allergy symptoms 12/04/21 04/16/23 lisinopril 10 mg tablet 10 mg PO DAILY Heart disease 08/30/22 04/16/23 empagliflozin 10 mg tablet 10 mg PO DAILY 03/20/23 04/16/23 (Jardiance) sertraline 100 mg tablet 100 mg PO DAILY 03/20/23 04/16/23 atorvastatin 10 mg tablet (Lipitor) 10 mg PO HS High Cholesterol 04/16/23 04/16/23 fexofenadine 180 mg tablet 180 mg PO DAILY Allergy Symptoms 04/16/23 04/16/23 ondansetron HCl 4 mg tablet 4 mg PO Q8H PRN nausea and vomiting 04/16/23 04/16/23 pantoprazole 40 mg tablet,delayed 40 mg PO DAILY Acid Reflux 04/16/23 04/16/23 release Previous Rx's Medication Instructions Recorded metoprolol tartrate 25 mg tablet 12.5 mg PO BID #90 tabs 02/26/23 fluticasone fur. 100 mcg-umeclid 1 inh inhalation DAILY #0 ea 03/21/23 62.5 mcg-vilant 25 mcg inhalat.powder (Trelegy Ellipta) ipratropium 0.5 mg-albuterol 3 mg 3 ml inhalation Q6HP PRN Shortness 03/21/23 (2.5 mg base)/3 mL nebulization Of Breath #0 mL soln polyethylene glycol 3350 17 gram 17 g PO DAILYP PRN Constipation #0 03/21/23 oral powder packet (Miralax) ea tizanidine 4 mg capsule 4 mg PO Q8H muscle spasms #90 caps 04/05/23 clonazepam 0.5 mg tablet (Klonopin) 0.5 mg PO BID Anxiety 30 days #60 04/12/23 tabs fexofenadine 180 mg tablet See Rx Instructions .Route 04/12/23 .COMPLEX #30 tabs gabapentin 800 mg tablet 800 mg PO TID Pain 30 days #90 tabs 04/12/23 metformin 500 mg tablet,extended See Rx Instructions .Route 04/12/23 release 24 hr .COMPLEX #30 tabs oxycodone 5 mg tablet 5 mg PO BID pain #60 tabs 04/13/23 Allergies Allergy/AdvReac Type Severity Reaction Status Date / Time hydrocodone Allergy Severe cant breath Verified 02/07/23 10:59 [From Antonino (hydrocodone-acetamin)] Penicillins Allergy Unknown Unknown Verified 02/07/23 10:59 [facility] Dis[facility]: The information contained in this section may have been updated after the patient was seen, as this information can be updated by other users. Medical History Acute and chronic respiratory failure with hypercapnia Chronic hypercapnic respiratory failure Chronic respiratory failure with hypoxia and hypercapnia Chronic respiratory failure with hypoxia, on home oxygen therapy Chronically on benzodiazepine therapy COPD (chronic obstructive pulmonary disease) COPD exacerbation COPD exacerbation COVID-19 COVID-19 virus infection Decubitus ulcer limited to breakdown of skin (stage 2) Dependence on non-invasive ventilation Depression due to physical illness Generalized anxiety disorder GERD (gastroesophageal reflux disease) Hypertension Suicidal thoughts Surgical History History of cholecystectomy History of colonoscopy History of esophagogastroduodenoscopy History of hysterectomy Family History Mother Cancer Father Pancreatic cancer Social History Smoking Status: Former smoker tobacco type: cigarettes packs per day: 0 how long ago did patient quit smokin years second hand exposure: Yes alcohol intake: never substance use type: denies use current occupational status: disabled Travel in the last 8 weeks: None household members: family housing: house number of children: 1 caffeine: Yes ROS Obtained: Yes All systems reviewed & no additional complaints except as documented Physical Exam General General appearance: alert and in no apparent distress Head Head exam: atraumatic and normocephalic Eye Eye exam: Present normal appearance, PERRL and EOMI ENT ENT exam: Present normal exam, normal oropharynx, mucous membranes moist and normal external ear exam Neck Neck exam: Present normal inspection, full ROM and trachea midline; Absent tenderness Chest Chest inspection: Present normal inspection and symmetric chest wall rise; Absent tenderness Respiratory Respiratory exam: Present wheezes, prolonged expiratory phase and other (Bilateral wheezing noted); Absent respiratory distress, stridor or accessory muscle use Cardiovascular Cardiovascular exam: Present regular rate and normal rhythm Abdominal Exam Abdominal exam: Present soft; Absent distention, tenderness or guarding Extremities Exam Extremities exam: Present normal inspection, full ROM and normal capillary refill; Absent tenderness or edema Back Exam Back exam: Present normal inspection and full ROM; Absent tenderness Neurological Exam Neurological exam: Present alert, oriented X3, CN II-XII intact and normal gait; Absent motor sensory deficit Psychiatric Psychiatric exam: Present normal affect and normal mood Skin Skin exam: Present warm and dry Medical Decision Making Medical Records Medical records reviewed: Yes I reviewed the patient's medical records. Patel Inquiry Pt receiving controlled substance: No Vital Signs: 04/16/23 10:25 04/16/23 10:24 04/16/23 10:30 Temperature 98.2 F Temperature Source Oral Pulse Rate 92 H 86 Pulse Rate [Left Radial] 89 Respiratory Rate 21 Blood Pressure 110/76 98/75 L Blood Pressure [Right Arm] 110/76 Blood Pressure Mean Blood Pressure Mean [Right Arm] 87 Blood Pressure Source [Right Arm] Automatic Cuff Blood Pressure Position [Right Arm] Sitting 02 Sat by Pulse Oximetry 98 98 99 Oxygen Delivery Method Nasal Cannula Oxygen Flow Rate (LPM) 2 04/16/23 11:00 04/16/23 11:30 04/16/23 12:00 Temperature Temperature Source Pulse Rate 85 85 81 Pulse Rate [Left Radial] Respiratory Rate Blood Pressure 114/71 116/75 112/72 Blood Pressure [Right Arm] Blood Pressure Mean Blood Pressure Mean [Right Arm] Blood Pressure Source [Right Arm] Blood Pressure Position [Right Arm] 02 Sat by Pulse Oximetry 98 95 98 Oxygen Delivery Method Oxygen Flow Rate (LPM) 04/16/23 12:30 04/16/23 13:00 04/16/23 13:30 Temperature Temperature Source Pulse Rate 74 104 H 97 H Pulse Rate [Left Radial] Respiratory Rate Blood Pressure 106/66 L 93/61 L 110/71 Blood Pressure [Right Arm] Blood Pressure Mean Blood Pressure Mean [Right Arm] Blood Pressure Source [Right Arm] Blood Pressure Position [Right Arm] 02 Sat by Pulse Oximetry 95 96 98 Oxygen Delivery Method Oxygen Flow Rate (LPM) 04/16/23 14:00 04/16/23 14:30 04/16/23 15:00 Temperature Temperature Source Pulse Rate 76 83 100 H Pulse Rate [Left Radial] Respiratory Rate Blood Pressure 115/80 113/78 129/83 Blood Pressure [Right Arm] Blood Pressure Mean 95 Blood Pressure Mean [Right Arm] Blood Pressure Source [Right Arm] Blood Pressure Position [Right Arm] 02 Sat by Pulse Oximetry 97 97 96 Oxygen Delivery Method Room Air Oxygen Flow Rate (LPM) 04/16/23 15:30 04/16/23 16:00 04/16/23 16:33 Temperature 98.0 F Temperature Source Pulse Rate 78 70 70 Pulse Rate [Left Radial] Respiratory Rate 16 Blood Pressure 109/70 L 105/70 L 105/70 L Blood Pressure [Right Arm] Blood Pressure Mean Blood Pressure Mean [Right Arm] Blood Pressure Source [Right Arm] Blood Pressure Position [Right Arm] 02 Sat by Pulse Oximetry 99 97 Oxygen Delivery Method Oxygen Flow Rate (LPM) 04/16/23 16:29 Temperature Temperature Source Pulse Rate 80 Pulse Rate [Left Radial] Respiratory Rate Blood Pressure 99/69 L Blood Pressure [Right Arm] Blood Pressure Mean 76 Blood Pressure Mean [Right Arm] Blood Pressure Source [Right Arm] Blood Pressure Position [Right Arm] 02 Sat by Pulse Oximetry 97 Oxygen Delivery Method Oxygen Flow Rate (LPM) Lab Data Lab results reviewed: Yes I reviewed the patient's lab results. Lab Results 04/16/23 10:30: WBC 6.1, RBC 4.78, Hgb 14.1, Hct 44.7, MCV 93.3, MCH 29.5, MCHC 31.6 L, RDW 13.3, Plt Count 193, MPV 8.5, Neut % (Auto) 69.5, Lymph % (Auto) 24.1, [place] % (Auto) 4.9, Eos % (Auto) 0.8, Baso % (Auto) 0.8, Neut # (Auto) 4.3, Lymph # (Auto) 1.5, [place] # (Auto) 0.3, Eos # (Auto) 0.1, Baso # (Auto) 0.1, Sodium 140, Potassium 3.6, Chloride 92 L, Carbon Dioxide 40 H, Anion Gap 11.6, BUN 15, Creatinine 0.50 L, Estimated Creat Clear 51, Estimated GFR 125, Est GFR ( Amer) 152, Glucose 171 H, Calcium 9.4, Magnesium 1.8, Total Bilirubin 0.3, AST 29, ALT 23, Alkaline Phosphatase 55, Troponin I < 0.01, Total Protein 7.9, Albumin 4.6, Globulin 3.3 H, Albumin/Globulin Ratio 1.4, Lipase 23 04/16/23 10:45: SARS-CoV-2 (PCR) Not detected, Influenza A Untype (PCR) Not detected, Influenza Type B (PCR) Not detected 04/16/23 12:16: Urine Color Yellow, Urine Appearance Clear, Urine pH 7.5, Ur Specific [place] 1.015, Urine Protein Negative, Urine Glucose (UA) 3+, Urine Ketones Negative, Urine Blood Negative, Urine Nitrate Negative, Urine Bilirubin Negative, Urine Urobilinogen 0.2, Ur Leukocyte Esterase Negative, Urine RBC None, Urine WBC 5-10, Ur Squamous Epith Cells 3-5, Urine Bacteria Trace 04/16/23 14:23: Troponin I 0.03 04/16/23 10:30 04/16/23 10:30 Orders (Tests/Meds): ED MEDICATIONS Generic Name Dose Route Start Last Admin Trade Name Freq PRN Reason Stop Dose Admin Albuterol/Ipratropium 3 ml 04/16/23 15:47 Ipratropium/Albuterol 3 Ml Neb 05/16/23 15:46 Q6HP PRN Shortness Of Breath Atorvastatin Calcium 10 mg 04/16/23 21:00 Atorvastatin 10mg Tablet PO 05/16/23 20:59 HS KENNY Clonazepam 0.5 mg 04/16/23 21:00 Clonazepam 0.5mg Tablet PO 05/16/23 20:59 BID KENNY Empagliflozin 10 mg 04/17/23 09:00 Empagliflozin 10mg Tablet PO 05/17/23 08:59 DAILY KENNY Fluticasone/Umeclidinium/Vilanterol 1 puff 04/17/23 09:00 Fluticasone/Umeclidin/Vilanter 100/62.5/25mcg Inhaler 05/17/23 08:59 DAILY KENNY Gabapentin 800 mg 04/16/23 21:00 Gabapentin 800mg Tablet PO 05/16/23 20:59 TID KENNY Lisinopril 10 mg 04/17/23 09:00 Lisinopril 10mg Tablet PO 05/17/23 08:59 DAILY [facility] Metoprolol Tartrate 12.5 mg 04/16/23 21:00 Metoprolol Tartrate 25mg Tablet PO 05/16/23 20:59 BID KENNY Montelukast Sodium 10 mg 04/16/23 18:00 Montelukast Sodium 10mg Tab PO 05/16/23 17:59 PM KENNY Ondansetron HCl 4 mg 04/16/23 15:53 Ondansetron 4mg Odt SL 05/16/23 15:52 Q8HP PRN nausea and vomiting Oxycodone HCl 5 mg 04/16/23 21:00 Oxycodone 5mg Immediate Release Tablet PO 05/16/23 20:59 BID KENNY Pantoprazole Sodium 40 mg 04/17/23 09:00 Pantoprazole 40mg Tablet PO 05/17/23 08:59 DAILY KENNY Polyethylene Glycol 17 gm 11/20/23 21:00 Polyethylene Glycol 3350 17 Gm Packet PO 05/16/23 20:59 BID KENNY Sertraline HCl 100 mg 04/17/23 09:00 Sertraline 100mg Tablet PO 05/17/23 08:59 DAILY KENNY Discontinued Medications Generic Name Dose Route Start Last Admin Trade Name Aparna PRN Reason Stop Dose Admin Albuterol/Ipratropium 3 ml 04/16/23 10:35 04/16/23 10:54 Ipratropium/Albuterol 3 Ml Neb IH 04/16/23 10:36 3 ml ONCE ONE Administration Lactated Ringer's 1,000 mls @ 999 mls/hr 04/16/23 13:19 04/16/23 13:26 Lactated Ringer's 1000 Ml Bag IV 04/16/23 14:19 999 mls/hr .Q1H1M ONE Administration Ondansetron HCl 4 mg 04/16/23 10:36 04/16/23 10:54 Ondansetron 4mg/2ml Vial IV 04/16/23 10:37 4 mg ONCE ONE Administration Ondansetron HCl 4 mg 04/16/23 13:19 04/16/23 13:26 Ondansetron 4mg/2ml Vial IV 04/16/23 13:20 4 mg ONCE ONE Administration ORDERS Category Date Time Status XR chest portable Stat Exams 04/16/23 11:52 Completed Complete Blood Count Auto Diff AMLAB Lab 04/17/23 06:00 Ordered Complete Blood Count Auto Diff Stat Lab 04/16/23 10:30 Completed Comprehensive Metabolic Panel AMLAB Lab 04/17/23 06:00 Ordered Comprehensive Metabolic Panel Stat Lab 04/16/23 10:30 Completed Lipase Stat Lab 04/16/23 10:30 Completed Magnesium AMLAB Lab 04/17/23 06:00 Ordered Magnesium Stat Lab 04/16/23 10:30 Completed Rapid PCR Covid and Flu A/B Stat Lab 04/16/23 10:45 Completed Troponin I Q3H Lab 04/16/23 14:23 Completed Troponin I Q3H Lab 04/16/23 16:45 Ordered Troponin I Stat Lab 04/16/23 10:30 Completed Urinalysis and Microscopic Stat Lab 04/16/23 12:16 Completed ECG Data Tracing #1: I reviewed this ECG and interpreted as documented below: Normal sinus rhythm with sinus arrhythmia with a ventricular rate of [address] changes concerning for ischemia. No significant changes noted from prior EKG. ECG initial impression date: 04/16/23 ECG initial impression time: 10:45 Tracing #2: I reviewed this ECG and interpreted as documented below: Normal sinus rhythm with a ventricular rate of [address] changes concerning for ischemia. No significant changes noted from previous EKG. ECG initial impression date: 04/16/23 ECG initial impression time: 15:41 Medical Decision Narrative: In summary, this patient is a 62-year-old female presenting to the Emergency Department for evaluation of intractable nausea and vomiting since Sunday. Differential diagnoses considered include but are not limited to gastroenteritis, colitis, dehydration, urinary tract infection. Ruling out the most morbid conditions drove assessment. It should be noted patient's history includes COPD, CHF, hypertension, hyperlipidemia, and chronic debility which may or may not be at goal therapy. Th is complicates all aspects of care by increasing patient's risk for morbidity. I reviewed patient's past medical records and noted her previous admission for acute on chronic respiratory failure in the setting of COPD exacerbation, and her subsequent discharged home to nursing facility for rehab. On exam, the patient is nontoxic-appearing with no abdominal tenderness. Vitals are normal on cardiac telemetry on her home oxygen. She does have bilateral wheezes. Workup included CBC, CMP, lipase, urinalysis, magnesium, troponin, viral swab, chest x-ray, EKG. Patient was given DuoNeb given wheezing. She was given IV Zofran for symptomatic improvement of vomiting. I independently interpreted chest x-ray prior to the radiologist read and noted no focal consolidation. Please see their read for final interpretation. Labs were obtained that demonstrated no acutely concerning abnormalities at this time. On reassessment, patient had no improvement after administration of Zofran. She was given IV fluids and Phenergan with again no improvement. She was not able to tolerate oral intake and had continued vomiting.. At this time, I do not feel comfortable sending the patient home given her intractable nausea and vomiting. Given this, I called Dr. Bermeo and had an interactive discussion with him. He graciously excepted the patient for admission for further evaluation and management. The patient was admitted in stable condition. Critical Care Critical Care Time Critical Care Time: No
[2023-04-16 12:29] LABS: Microscopic, Urine URINE MICROSCOPIC (MICROSCOPIC)
[2023-04-16 12:36] LABS: Appearance,Urine CLEAR (Clear); Bilirubin,Urine Negative (Negative); Blood, Urine Negative (Negative); Color,Urine YELLOW (Yellow); Glucose,Urine (UA) 3+ (Negative); Ketones,Urine Negative (Negative); Leukocyte Esterase,Urine Negative (Negative); Nitrate,Urine Negative (Negative); PH,Urine 7.5 (5.0-8.5); Protein,Urine Negative (Negative); Specific Gravity, Urine 1.015 (1.005-1.030); Urobilinogen,Urine 0.2 EU/dl (0.2)
[2023-04-16 12:51] LABS: Bacteria,Urine Trace /lpf
--- NOTE | 2023-04-16 12:58 | PC.NURSE ---
Rounded on patient; patient requesting emesis bag. Patient vomited after a few bites of crackers. RN and MD notified
--- NOTE | 2023-04-16 13:16 | PC.NURSE ---
rounded on pt no needs at this time,call light at bs
[2023-04-16] MEDS: LACTATED RINGERS 1000ML 1,000 ML 999 ML IV (13:26)
--- NOTE | 2023-04-16 14:38 | PC.NURSE ---
eduardo contacted, will call back
--- NOTE | 2023-04-16 14:58 | PC.NURSE ---
call made to care management for bed placement
--- NOTE | 2023-04-16 15:02 | EXP.HP ---
History of Present Illness *Admission Date: 04/16/23 *Reason for visit:: nausea and vomiting *History of present illness: Ms. Banerjee is a 62-year-old female who was admitted a month ago for CARLYN and weakness. Was discharged to a nursing facility where she was recently released to return home over the weekend. Has been living with her sister. Presented to the ER today due to complaint of vomiting 4-5 times this morning. Patient continues to have weakness. States that she was at the shelter for weakness and was responding to therapy, ambulating with a walker. This morning she went to the bathroom and became nauseous because of the litter box in her sister's bathroom. Denies any blood in her vomit. No fever. Having some abdominal discomfort. Denies any bowel movement since Sunday. Stable on her baseline oxygen of 2 L. Attempts to trial p.o. intake in the ER were unsuccessful with persistent nausea and vomiting. Since going home from the shelter, she has still felt bad. Denies any dysuria, diarrhea. Shortness of breath and cough are at baseline for her. Has been taking her meds per her report. Chronic problems consist of the following:COPD with chronic respiratory failure on 2 L nasal cannula at home, CHF, hypertension, hyperlipidemia, prediabetes, GERD, immobility, and anxiety. Due to inability to tolerate p.o. intake, weakness, continued nausea and vomiting, the ER consulted medicine for admission for observation and p.o. challenge. [facility] Disclaimer: The information contained in this section may have been updated after the patient was seen, as this information can be updated by other users. Medical History Acute and chronic respiratory failure with hypercapnia Chronic hypercapnic respiratory failure Chronic respiratory failure with hypoxia and hypercapnia Chronic respiratory failure with hypoxia, on home oxygen therapy Chronically on benzodiazepine therapy COPD (chronic obstructive pulmonary disease) COPD exacerbation COPD exacerbation COVID-19 COVID-19 virus infection Decubitus ulcer limited to breakdown of skin (stage 2) Dependence on non-invasive ventilation Depression due to physical illness Generalized anxiety disorder GERD (gastroesophageal reflux disease) Hypertension Suicidal thoughts Surgical History History of cholecystectomy History of colonoscopy History of esophagogastroduodenoscopy History of hysterectomy Family History Father Mother Pancreatic cancer Father Cancer Mother Social History Smoking Status: Former smoker tobacco type: cigarettes packs per day: 0 how long ago did patient quit smokin years second hand exposure: Yes alcohol intake: never substance use type: denies use current occupational status: disabled Travel in the last 8 weeks: None household members: family housing: house number of children: 1 caffeine: Yes Review of Systems Review of Systems Review of systems (narrative): 14 point review of systems performed, pertinent positives and negatives as per [facility] Meds Home Medications and Allergies Home Medications Medication Instructions Recorded Confirmed Type montelukast 10 mg tablet 10 mg PO PM Allergy symptoms 12/04/21 04/16/23 History lisinopril 10 mg tablet 10 mg PO DAILY Heart disease 08/30/22 04/16/23 History metoprolol tartrate 25 mg tablet 12.5 mg PO BID #90 tabs 02/26/23 04/16/23 Rx empagliflozin 10 mg tablet 10 mg PO DAILY 03/20/23 04/16/23 History (Jardiance) sertraline 100 mg tablet 100 mg PO DAILY 03/20/23 04/16/23 History fluticasone fur. 100 mcg-umeclid 1 inh inhalation DAILY #0 ea 03/21/23 04/16/23 Rx 62.5 mcg-vilant 25 mcg inhalat.powder (Trelegy Ellipta) ipratropium 0.5 mg-albuterol 3 mg 3 ml inhalation Q6HP PRN Shortness 03/21/23 04/16/23 Rx (2.5 mg base)/3 mL nebulization Of Breath #0 mL soln polyethylene glycol 3350 17 gram 17 g PO DAILYP PRN Constipation #0 03/21/23 04/16/23 Rx oral powder packet (Miralax) ea tizanidine 4 mg capsule 4 mg PO Q8H muscle spasms #90 caps 04/05/23 04/16/23 Rx clonazepam 0.5 mg tablet (Klonopin) 0.5 mg PO BID Anxiety 30 days #60 04/12/23 04/16/23 Rx tabs fexofenadine 180 mg tablet See Rx Instructions .Route 04/12/23 04/16/23 Rx .COMPLEX #30 tabs gabapentin 800 mg tablet 800 mg PO TID Pain 30 days #90 tabs 04/12/23 04/16/23 Rx metformin 500 mg tablet,extended See Rx Instructions .Route 04/12/23 04/16/23 Rx release 24 hr .COMPLEX #30 tabs oxycodone 5 mg tablet 5 mg PO BID pain #60 tabs 04/13/23 04/16/23 Rx atorvastatin 10 mg tablet (Lipitor) 10 mg PO HS High Cholesterol 04/16/23 04/16/23 History fexofenadine 180 mg tablet 180 mg PO DAILY Allergy Symptoms 04/16/23 04/16/23 History ondansetron HCl 4 mg tablet 4 mg PO Q8H PRN nausea and vomiting 04/16/23 04/16/23 History pantoprazole 40 mg tablet,delayed 40 mg PO DAILY Acid Reflux 04/16/23 04/16/23 History release New Prescriptions to Start Prescriptions: Allergies Allergy/AdvReac Type Severity Reaction Status Date / Time hydrocodone Allergy Severe cant breath Verified 02/07/23 10:59 [From [facility] (hydrocodone-acetamin)] Penicillins Allergy Unknown Unknown Verified 02/07/23 10:59 allergy reaction Exam Data for Last 24 hours Vital signs and Labs for Last 24 Hours: Temp Pulse Resp BP Pulse Ox O2 Del Method O2 Flow Rate 98.2 F 83 21 113/78 97 Room Air 2 04/16/23 10:25 04/16/23 14:30 04/16/23 10:25 04/16/23 14:30 04/16/23 14:30 04/16/23 14:30 04/16/23 10:25 Laboratory Results - last 24 hr 04/16/23 10:30: WBC 6.1, RBC 4.78, Hgb 14.1, Hct 44.7, MCV 93.3, MCH 29.5, MCHC 31.6 L, RDW 13.3, Plt Count 193, MPV 8.5, Neut % (Auto) 69.5, Lymph % (Auto) 24.1, Grady % (Auto) 4.9, Eos % (Auto) 0.8, Baso % (Auto) 0.8, Neut # (Auto) 4.3, Lymph # (Auto) 1.5, Grady # (Auto) 0.3, Eos # (Auto) 0.1, Baso # (Auto) 0.1, Sodium 140, Potassium 3.6, Chloride 92 L, Carbon Dioxide 40 H, Anion Gap 11.6, BUN 15, Creatinine 0.50 L, Estimated Creat Clear 51, Estimated GFR 125, Est GFR ( Amer) 152, Glucose 171 H, Calcium 9.4, Magnesium 1.8, Total Bilirubin 0.3, AST 29, ALT 23, Alkaline Phosphatase 55, Troponin I < 0.01, Total Protein 7.9, Albumin 4.6, Globulin 3.3 H, Albumin/Globulin Ratio 1.4, Lipase 23 04/16/23 10:45: SARS-CoV-2 (PCR) Not detected, Influenza A Untype (PCR) Not detected, Influenza Type B (PCR) Not detected 04/16/23 12:16: Urine Color Yellow, Urine Appearance Clear, Urine pH 7.5, Ur Specific Sparks 1.015, Urine Protein Negative, Urine Glucose (UA) 3+, Urine Ketones Negative, Urine Blood Negative, Urine Nitrate Negative, Urine Bilirubin Negative, Urine Urobilinogen 0.2, Ur Leukocyte Esterase Negative, Urine RBC None, Urine WBC 5-10, Ur Squamous Epith Cells 3-5, Urine Bacteria Trace I & O for Last 24 hours: Intake & Output 04/13/23 04/14/23 04/15/23 04/16/23 23:59 23:59 23:59 23:59 Weight 54.431 kg Constitutional Constitutional: no acute distress, cachectic, chronically ill appearing and cooperative *Routine HEENT Exam Head: Present normocephalic and atraumatic Eye: Present EOMI, PERRL and normal accommodation ENT: Present mucous membranes moist *Routine Neck Exam Neck: Present supple, full ROM and trachea midline *Routine Respiratory Exam Respiratory: Present prolonged expiratory phase, crackles, diminished air movement, able to speak in complete sentences and symmetric chest movement; Absent rhonchi or wheezes *Routine Cardiovascular Exam Cardiovascular: Present RRR and Normal S1 *Routine Abdominal Exam Abdominal: Present soft, normoactive bowel sounds and tenderness (Minimal, nonfocal, mainly upper abdomen); Absent guarding *Routine Rectal Exam Rectal:: deferred *Routine Genitalia Exam Genitalia:: deferred *Routine Extremities Exam Extremities: Present full ROM and normal capillary refill; Absent cyanosis, clubbing or edema *Routine Skin Exam Skin: Present intact, dry and warm *Routine Neurological Exam Neurological: Present alert, oriented X3 and moving all extremities; Absent altered mental status Routine Psychiatric Exam Psychiatric: Present suicidal ideation and depressed; Absent good judgment Assessment and Plan *Assessment and plan (1) Intractable nausea and vomiting: Status: Acute Category: Medical Code(s): R11.2 - Nausea with vomiting, unspecified (2) Abdominal pain: Status: Acute Qualifiers: Abdominal location: unspecified location Qualified Code(s): R10.9 - Unspecified abdominal pain Category: Medical Code(s): R10.9 - Unspecified abdominal pain (3) GERD (gastroesophageal reflux disease): Status: Acute Qualifiers: Esophagitis presence: without esophagitis Qualified Code(s): K21.9 - Gastro-esophageal reflux disease without esophagitis Category: Medical Code(s): K21.9 - Gastro-esophageal reflux disease without esophagitis (4) HLD (hyperlipidemia): Status: Acute Qualifiers: Hyperlipidemia type: unspecified Qualified Code(s): E78.5 - Hyperlipidemia, unspecified Category: Medical Code(s): E78.5 - Hyperlipidemia, unspecified (5) (HFpEF) heart failure with preserved ejection fraction: Status: Acute Qualifiers: Heart failure chronicity: chronic Qualified Code(s): I50.32 - Chronic diastolic (congestive) heart failure Category: Medical Code(s): I50.30 - Unspecified diastolic (congestive) heart failure (6) Generalized anxiety disorder: Status: Acute Category: Medical Code(s): F41.1 - Generalized anxiety disorder (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 Labs fairly unremarkable in the ER. Patient unable to tolerate p.o. intake however. Medicine consulted by ER physician for admission. Discussed case with ER physician, given patient's intolerance to tolerate p.o. intake, not comfortable discharging patient home. Medicine agreed to admit for observation and p.o. challenge. Problems addressed as follows: Nausea and vomiting Abdominal pain -Patient has not had a bowel movement since Sunday. Given history of hiatal hernia, constipation, will address her nausea with Zofran 4 mg every 8 hours as needed -Initiate aggressive bowel regimen with MiraLAX twice daily, docusate senna twice daily. Goal for bowel movement by morning. -Regular diet as tolerated -Continue pantoprazole 40 mg daily for GERD Debility -PT and OT consulted. Just discharged from shelter, patient still weak. Case management consulted to assist with placement versus home health recommendations Chronic hypoxemic respiratory failure -On baseline oxygen 2 L continue DuoNebs every 6 as needed HFpEf: - stable, continue home medications including Lipitor 10 mg HS, Jardiance 10 mg daily, lisinopril 10 g daily, metoprolol 12.5 mg twice daily Anxiety and depression disorder: -Continue home regimen of clonazepam and sertraline DNR Lovenox for DVT ppx
[2023-04-16 15:22] LABS: Troponin I 0.03 ng/ml (0.00-0.034)
--- NOTE | 2023-04-16 15:32 | PC.NURSE ---
report called to devang carter on second floor
--- NOTE | 2023-04-16 15:40 | ECG_ITS ---
APPROVED REPORT Exam: Resting ECG HR:76 bpm ECG Measurements Heart Rate 76 AXES UT 125 P 79 QRSd 99 QRS 94 QT 368 T 62 QTc 398 Conclusion SINUS RHYTHM BORDERLINE RIGHT AXIS DEVIATION [QRS AXIS > 90] BORDERLINE ECG UNCONFIRMED REPORT Electronically signed by : Case Barrios MD 04/18/2023 17:13:47
--- NOTE | 2023-04-16 16:32 | PC.NURSE ---
arrived by w/c from ED
[2023-04-16] MEDS: MONTELUKAST SODIUM 10MG TAB 10 MG PO (17:59)
[2023-04-16] MEDS: ONDANSETRON 4MG ODT 4 MG SL (18:05)
[2023-04-16 19:11] LABS: Troponin I 0.02 ng/ml (0.00-0.034)
[2023-04-16] MEDS: ATORVASTATIN 10MG TABLET 10 MG PO (20:42)
[2023-04-16] MEDS: ACETAMINOPHEN 325MG TAB 650 MG PO (23:33)
[2023-04-17] VITALS (9 sets, daily range): BP systolic 74–125; BP diastolic 47–72; PULSE 68–86; RESP 16–17; TEMP 36.6–36.9; O2SAT 94–96; BMI 23.0
[2023-04-17] MEDS: IPRATROPIUM/ALBUTEROL 3 ML NEB IH ×2 (04:04→10:45)
[2023-04-17] MEDS: 0.9 % SODIUM CHLORIDE 500 ML 999 ML IV (04:30)
--- NOTE | 2023-04-17 04:42 | PC.NURSE ---
nurse is aware of 0400 B/P
[2023-04-17] MEDS: FLUTICASONE/UMECLIDIN/VILANTER 100/62.5/25MCG INHALER 1 PUFF IH (06:26)
[2023-04-17] MEDS: ACETAMINOPHEN 325MG TAB 650 MG PO (06:28)
--- NOTE | 2023-04-17 06:38 | PC.NURSE ---
pt has had low bp, with soft map readings. notied gift officer at beginning of shift. gave order to monitor bp giving map was over 65. notified provider a second time when bp 79/66. new order received of ns 500 ml bolus. bp improved to 125/56. pt reports no c/o hypotension.
[2023-04-17 07:05] LABS: Basophils % 0.6 % (0.1-2.0); Eosinophils # 0.2 K/mm3 (0.0-0.4); Eosinophils % 2.8 % (0.1-12.0); Hematocrit 39.9 % (37.0-47.0); Hemoglobin 12.7 g/dL (12.2-16.2); Lymphocytes # 2.2 K/mm3 (0.7-4.5); Lymphocytes % 40.6 % (10-50); Mean Corpuscular HGB Conc 31.8 g/dL (31.8-35.4); Mean Corpuscular Hemoglobin 29.5 pg (27.0-31.2); Mean Corpuscular Volume 92.6 fl (81-99); Mean Platelet Volume 8.5 fl (7.4-10.4); Monocytes # 0.3 K/mm3 (0.1-1.0); Monocytes % 5.7 % (1.7-9.3); Neutrophils # 2.8 K/mm3 (1.8-7.8); Neutrophils % 50.3 % (37.0-80.0); Platelet Count 177 K/mm3 (142-424); Red Cell Distribution Width 13.4 % (11.5-17.5); White Blood Count 5.5 K/mm3 (4.8-10.8)
[2023-04-17 07:18] LABS: Alanine Aminotransferase 22 U/L (12-78); Albumin Level 3.9 g/dl (3.5-5.0); Albumin/Globulin Ratio 1.3 (1.1-1.8); Alkaline Phosphatase 44 U/L (38-126); Aspartate Amino Transferase 27 U/L (14-36); Bilirubin,Total 0.3 mg/dl (0.2-1.3); Blood Urea Nitrogen 13 mg/dl (7-17); Calcium 8.9 mg/dl (8.4-10.2); Chloride 94 mmol/L (98-107); Creatinine Clearance Estimated 62 mL/min (50-200); Estimated Glomerular Filt Rate 102 ml/min (>60); GFR (African American) 123 ML/MIN (>60); Globulin 2.9 g/dL (1.3-3.2); Glucose 102 mg/dl (74-100); Magnesium 1.7 mg/dl (1.6-2.3); Potassium 3.2 mmoL/L (3.5-5.1); Sodium 137 mmol/L (136-145); Total Protein,Serum 6.8 g/dl (6.3-8.2)
[2023-04-17 07:25] LABS: Anion Gap 10.2 mEq/L (5-15); Carbon Dioxide 36 mmol/L (22.0-30.0)
--- NOTE | 2023-04-17 07:58 | HMH.PHAINT1 ---
Pharmacy Intervention Comments: Med reconciliation completed using external fill history and patient interview. She states that she last took metformin on 04/12 and stopped due to chest pain. She also states that she never received her trelegy or miralax. She has been using the combivent.
--- NOTE | 2023-04-17 08:21 | SW/DCPLANNER ---
Addendum entered by Gisele Reyes 04/18/23 09:56: [facility] stated that home health services will start Sunday for this patient. Addendum entered by Gisele Reyes 04/18/23 08:14: Patient information/order has been faxed to [facility]: I will follow up once reviewed. Addendum entered by Gisele Reyes 04/17/23 11:05: PT/OT stated that patient is independent and could return home. Patient stated that she is not interested in LTC and would prefer to return home w/ home health services. I will arrange home health services once medically stable for discharge. Original Note: I spoke w/ this patient regarding plans once medically stable for discharge. PT/OT is ordered to evaluate patient this AM. Patient was recently discharged from [facility] SNF level care. Patient stated that she went to [facility] due to being COVID positive. Patient stated that she is interested in SNF level of care at time of discharge. Patient stated that she is open to any facility closer to [place]. I discussed the following facilities w/ patient and she is agreeable for patient information to be faxed: [facility], [facility], [facility], [facility] and [facility]. I will continue to follow up w/ jorge, MD and facilities.
[2023-04-17] MEDS: POLYETHYLENE GLYCOL 3350 17 GM PACKET PO (09:15)
[2023-04-17] MEDS: MAGNESIUM OXIDE 400MG TABLET 400 MG PO ×2 (09:19→20:33)
[2023-04-17] MEDS: SENNOSIDES 8.6MG/DOCUSATE 50MG TABLET 1 TAB PO (09:20)
[2023-04-17] MEDS: POTASSIUM CHLORIDE 20MEQ TAB 20 MEQ PO ×3 (09:20→20:35)
[2023-04-17] MEDS: EMPAGLIFLOZIN 10MG TABLET 10 MG PO (09:20)
[2023-04-17] MEDS: PANTOPRAZOLE 40MG TABLET 40 MG PO (09:20)
--- NOTE | 2023-04-17 09:24 | HMH.OTEV ---
OT Inpatient Evaluation Rehab OT IP Evaluation Start: 04/16/23 17:15 Freq: ONCE Status: Active Protocol: Document 04/17/23 09:20 FAMILIA (Rec: 04/17/23 09:24 [id number] Rehab OT IP Assessment Subjective History Pt oriented x 3 on arrival. Pt agreeable to engage in therapy evaluation. Pt admitted on 04/16/23 due to nausea and vomitting. Ms. Banerjee is a 62-year-old female who was admitted a month ago for CARLYN and weakness. Was discharged to a nursing facility where she was recently released to return home over the weekend. Has been living with her sister. Pt reports prior to being in the hospital, she was back living with her sister and independent with all ADLs. She was able to complete functional transfers with rolling walker. Pt also required o2 at all times. She was dependent upon sister for completion of all IADLs. Subjective I have been sick to my stomach. Objective Patient Orientation Person,Place,Birthday Right Upper Extremity Gross ROM WFL Left Upper Extremity Gross ROM WFL Bed Mobility bed mobility-scooting,bed mobility - supine/sit Assist Level Supervision/Stand by Transfer Training Sit/Stand Transfer Assist Level Supervision/Stand by Chair Transfer Ability Supervision/Stand by Chair Transfer Technique Sit to/from Ambulatory Chair Transfer Assistive Devices Rolling Walker Lower Body Dressing Ability Standby Assistance Rehab OT IP prob,goals,plan Problems Date of Evaluation: 04/17/23 Rehab Potential Rehab Potential Innapropriate for Skilled Therapy Discharge Plan OT Discharge Plan At this time, pt appears to be at her baseline with functional transfers and ADL independence. Pt can return home with sister once medically stable. Home health OT evaluation can be completed upon returning back home. Eval Complexity Eval Charge Codes 49594 - Low Complexity PHYSICIAN CERTIFICATION: I certify the specified therapy services for Silvia Aviles are required, authorized, and reviewed every 30 days.
--- NOTE | 2023-04-17 10:28 | PC.NURSE ---
enema ordered, pt ref at this time, wants to wait and try for a bm.
[2023-04-17] MEDS: METOCLOPRAMIDE 5MG TABLET 5 MG PO ×3 (10:59→20:34)
--- NOTE | 2023-04-17 11:02 | HMH.PTEV ---
Physical Therapy Evaluation Rehab PT IP Evaluation Start: 04/16/23 17:15 Freq: ONCE Status: Active Protocol: Document 04/17/23 10:58 ALEX (Rec: 04/17/23 11:02 PHOOKSANA [id number]) Subjective/History History History 62 yoef adm to [facility] with N/V. She has PMH of COPD, CHF, HTN, HLD, anxiety. SHe reports she lives with her sister, 2-3 steps to enter the home and she generally uses a RW for all mobility at baseline. She uses oxygen via NC at all times. Subjective Subjective Pt reports she feels better this am, no nausea currently, agrees to mobility assessment. New diagnosis of cancer in past 12 No months? Rehab PT IP Eval Objective Appearance Patient Behavior Appropriate Patient Orientation Person,Place,Time Difficulty following instructions none Speech Pattern Clear Ambulation Patient Able to Ambulate Yes Ambulation Observation IP General Gait Pattern Observation No Deviations/Normal Ambulation Distance (feet) 35 Ambulation Assistive Device Rolling Walker Ambulation Ability Independent Balance Ability to Arise Able, w/o using arms Sitting Balance Steady, safe Standing Balance Narrow stance w/o support Dynamic Sitting Balance Ability Good Dynamic Standing Balance Ability Good Transfers Bed Transfer Ability Independent Chair Transfer Ability Independent Sit to Stand Bed Transfer Ability Independent Sit to Stand Chair Transfer Ability Independent ROM All Extremities PT ROM Status WFL MMT All Extremities PT MMT WFL Rehab PT IP prob,goals,plan Problems Date of Evaluation: 04/17/23 Discharge Plan PT Discharge Plan Pt is currently at baseline for all mobility. Some SOA noted after ambulation, but decreased with pt performing deep breathing exercises independently. No current inpatient therapy needs. Eval Complexity Eval Charge Codes 25879 - High Complexity PHYSICIAN CERTIFICATION: I certify the specified therapy services for Silvia Aviles are required, authorized, and reviewed every 30 days.
[2023-04-17] MEDS: GABAPENTIN 800MG TABLET 800 MG PO ×2 (13:00→20:33)
[2023-04-17] MEDS: MONTELUKAST SODIUM 10MG TAB 10 MG PO (17:36)
[2023-04-17] MEDS: SODIUM PHOS/BIPHOSPHATE FLEET 133ML ENEMA 133 ML RC (17:36)
--- NOTE | 2023-04-17 18:06 | PC.NURSE ---
pt has done well today, sat in chair at bs for a couple of hrs and took a shower. pt states an episode of vomiting after breakfast although this nurse or techs did not see vomit. no c/o n/v since then. pt had a medium bm after admin of enema. pt ambulates with sb assist. pt currently in bed receiving breathing treatment, cb within reach no concerns at this time.
--- NOTE | 2023-04-17 20:00 | EXP.ACUTE.PN ---
Subjective *Date: 04/17/23 *Time: 21:24 Interval history: Patient states she had some vomiting this morning. Still no bowel movement however. Stable on room air. Received a bolus overnight with improvement in blood pressure. No chest pain or shortness of breath. Stable oxygen requirement. Working with therapy today. Baseline mobility. Medical Exam Vital signs and Labs for Last 24 Hours: Vital Signs Temp Pulse Pulse Resp BP Pulse Ox O2 Del Method 04/17/23 18:48 Nasal Cannula 04/17/23 18:05 Room Air 04/17/23 17:00 Nasal Cannula 04/17/23 16:00 Nasal Cannula 04/17/23 15:00 Nasal Cannula 04/17/23 13:00 Nasal Cannula 04/17/23 08:00 Nasal Cannula 04/17/23 11:00 Nasal Cannula 04/17/23 10:37 73 04/17/23 10:37 76 04/17/23 09:00 Nasal Cannula 04/17/23 08:00 Nasal Cannula 04/17/23 07:43 98.4 F 75 17 74/53 L 94 L Nasal Cannula 04/17/23 07:00 Nasal Cannula 04/17/23 06:27 96 Nasal Cannula 04/17/23 06:16 74 125/59 L 04/17/23 05:00 Nasal Cannula 04/17/23 05:27 68 85/47 L 04/17/23 04:00 97.9 F 73 16 79/66 L 95 04/17/23 04:04 75 04/17/23 04:04 75 04/17/23 03:00 Nasal Cannula 04/17/23 02:21 75 107/60 L 04/17/23 01:00 Nasal Cannula 04/16/23 23:00 Nasal Cannula 04/16/23 21:00 Nasal Cannula 04/16/23 20:50 Nasal Cannula 04/16/23 23:22 83/49 L 04/16/23 20:40 90/60 L O2 Flow Rate FiO2 04/17/23 18:48 2 28 04/17/23 18:05 04/17/23 17:00 2 04/17/23 16:00 2 04/17/23 15:00 2 04/17/23 13:00 2 04/17/23 08:00 2 04/17/23 11:00 2 04/17/23 10:37 04/17/23 10:37 04/17/23 09:00 2 04/17/23 08:00 2 04/17/23 07:43 2 04/17/23 07:00 2 04/17/23 06:27 2 04/17/23 06:16 04/17/23 05:00 2 04/17/23 05:27 04/17/23 04:00 04/17/23 04:04 04/17/23 04:04 04/17/23 03:00 2 04/17/23 02:21 04/17/23 01:00 2 04/16/23 23:00 2 04/16/23 21:00 2 04/16/23 20:50 2 04/16/23 23:22 04/16/23 20:40 Intake and Output 04/17/23 04/17/23 04/17/23 07:59 15:59 23:59 Intake Total 240 / 950 240 / 950 470 / 950 Output Total 500 / 500 0 / 500 Balance -260 / 450 240 / 450 470 / 450 Intake: Intake, Oral Amount 240 / 950 240 / 950 470 / 950 Output: Output, Urine Amount 500 / 500 0 / 500 Other: Number of Unmeasured Voids 1 1 2 Number of Bowel Movements 1 Weight 66.497 kg Patient Weight 04/17/23 23:59 Weight 66.497 kg Laboratory Results - last 24 hr 04/17/23 06:49: WBC 5.5, RBC 4.30, Hgb 12.7, Hct 39.9, MCV 92.6, MCH 29.5, MCHC 31.8, RDW 13.4, Plt Count 177, MPV 8.5, Neut % (Auto) 50.3, Lymph % (Auto) 40.6, [place] % (Auto) 5.7, Eos % (Auto) 2.8, Baso % (Auto) 0.6, Neut # (Auto) 2.8, Lymph # (Auto) 2.2, [place] # (Auto) 0.3, Eos # (Auto) 0.2, Baso # (Auto) 0.0, Sodium 137, Potassium 3.2 L, Chloride 94 L, Carbon Dioxide 36 H, Anion Gap 10.2, BUN 13, Creatinine 0.60, Estimated Creat Clear 62, Estimated GFR 102, Est GFR ( Amer) 123, Glucose 102 H D, Calcium 8.9, Magnesium 1.7, Total Bilirubin 0.3, AST 27, ALT 22, Alkaline Phosphatase 44, Total Protein 6.8, Albumin 3.9 D, Globulin 2.9, Albumin/Globulin Ratio 1.3 I & O for Labs for Last 24 Hours: Intake & Output 04/14/23 04/15/23 04/16/23 04/17/23 23:59 23:59 23:59 23:59 Intake Total 540 / 540 950 / 950 Output Total 500 / 500 Balance 540 / 540 450 / 450 Weight 63.588 kg 66.497 kg Constitutional: Present no acute distress, average body habitus and chronically ill appearing Head: Present atraumatic and normocephalic ENT: Present normal exam Neck: Present normal inspection Respiratory: Present wheezes, diminished air movement and normal respiratory effort; Absent accessory muscle use, rhonchi or crackles Cardiac: Present Reg Rate and Rhythm GI: Present soft and normal bowel sounds; Absent tenderness Extremities: Present normal inspection and full ROM Skin: Present intact; Absent erythema Neuro: Present Grossly Intact, alert, awake, oriented x 3 and moves all extremities Comment:: Globally weak Assessment and Plan *Assessment and plan (1) Intractable nausea and vomiting: Status: Acute Category: Medical Code(s): R11.2 - Nausea with vomiting, unspecified (2) Abdominal pain: Status: Acute Qualifiers: Abdominal location: unspecified location Qualified Code(s): R10.9 - Unspecified abdominal pain Category: Medical Code(s): R10.9 - Unspecified abdominal pain (3) GERD (gastroesophageal reflux disease): Status: Acute Qualifiers: Esophagitis presence: without esophagitis Qualified Code(s): K21.9 - Gastro-esophageal reflux disease without esophagitis Category: Medical Code(s): K21.9 - Gastro-esophageal reflux disease without esophagitis (4) HLD (hyperlipidemia): Status: Acute Qualifiers: Hyperlipidemia type: unspecified Qualified Code(s): E78.5 - Hyperlipidemia, unspecified Category: Medical Code(s): E78.5 - Hyperlipidemia, unspecified (5) (HFpEF) heart failure with preserved ejection fraction: Status: Acute Qualifiers: Heart failure chronicity: chronic Qualified Code(s): I50.32 - Chronic diastolic (congestive) heart failure Category: Medical Code(s): I50.30 - Unspecified diastolic (congestive) heart failure (6) Generalized anxiety disorder: Status: Acute Category: Medical Code(s): F41.1 - Generalized anxiety disorder (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 Labs fairly unremarkable in the ER. Patient unable to tolerate p.o. intake however. Medicine consulted by ER physician for admission. Discussed case with ER physician, given patient's intolerance to tolerate p.o. intake, not comfortable discharging patient home. Patient has done well. Minimal emesis. No bowel movement yet however. Stable oxygen requirement, afebrile. Ambulating independently and working with therapy. Nearing discharge criteria. Problems addressed as follows: Nausea and vomiting Abdominal pain -Patient has not had a bowel movement since Sunday. Given history of hiatal hernia, constipation, will address her nausea with Zofran 4 mg every 8 hours as needed -Initiated on Reglan, tolerating well with minimal vomiting. Tolerating p.o. intake. -Initiate aggressive bowel regimen with MiraLAX twice daily, docusate senna twice daily. Enema scheduled. -Regular diet as tolerated -Continue pantoprazole 40 mg daily for GERD Debility: PT and OT consulted. Doing well with ambulation. At baseline function. Discharge home with home health when stable. Chronic hypoxemic respiratory failure: On baseline oxygen 2 L continue DuoNebs every 6 as needed HFpEf: stable, continue home medications including Lipitor 10 mg HS, Jardiance 10 mg daily; holding lisinopril and metoprolol due to low blood pressure. Anxiety and depression disorder: Continue home regimen of clonazepam and sertraline DNR Lovenox for DVT ppx
[2023-04-17] MEDS: ATORVASTATIN 10MG TABLET 10 MG PO (20:33)
[2023-04-17] MEDS: OXYCODONE 5MG IMMEDIATE RELEASE TABLET 5 MG PO (20:34)
[2023-04-17] MEDS: clonazePAM 0.5MG TABLET 0.5 MG PO (20:39)
[2023-04-18 04:00] VITALS: BP 106/58; PULSE 80; RESP 16; TEMP 36.7; O2SAT 94; BMI 23.0
[2023-04-18] MEDS: FLUTICASONE/UMECLIDIN/VILANTER 100/62.5/25MCG INHALER 1 PUFF IH (06:02)
[2023-04-18] MEDS: METOCLOPRAMIDE 5MG TABLET 5 MG PO ×2 (06:32→12:36)
[2023-04-18 06:52] LABS: Basophils % 0.7 % (0.1-2.0); Eosinophils # 0.3 K/mm3 (0.0-0.4); Eosinophils % 5.5 % (0.1-12.0); Hematocrit 37.7 % (37.0-47.0); Hemoglobin 12.2 g/dL (12.2-16.2); Lymphocytes # 2.4 K/mm3 (0.7-4.5); Lymphocytes % 45.3 % (10-50); Mean Corpuscular HGB Conc 32.4 g/dL (31.8-35.4); Mean Corpuscular Hemoglobin 29.7 pg (27.0-31.2); Mean Corpuscular Volume 91.6 fl (81-99); Mean Platelet Volume 8.7 fl (7.4-10.4); Monocytes # 0.4 K/mm3 (0.1-1.0); Monocytes % 8.3 % (1.7-9.3); Neutrophils # 2.1 K/mm3 (1.8-7.8); Neutrophils % 40.3 % (37.0-80.0); Platelet Count 181 K/mm3 (142-424); Red Blood Count 4.11 M/mm3 (4.20-5.40); Red Cell Distribution Width 13.4 % (11.5-17.5); White Blood Count 5.3 K/mm3 (4.8-10.8)
[2023-04-18 07:04] LABS: Blood Urea Nitrogen 15 mg/dl (7-17); Calcium 8.2 mg/dl (8.4-10.2); Carbon Dioxide 39 mmol/L (22.0-30.0); Chloride 97 mmol/L (98-107); Creatinine Clearance Estimated 62 mL/min (50-200); Estimated Glomerular Filt Rate 102 ml/min (>60); GFR (African American) 123 ML/MIN (>60); Glucose 89 mg/dl (74-100); Magnesium 1.8 mg/dl (1.6-2.3); Sodium 136 mmol/L (136-145)
[2023-04-18 07:45] VITALS: BP 124/68; PULSE 72; RESP 16; TEMP 36.8; O2SAT 100
--- NOTE | 2023-04-18 07:54 | P.DS_ITS ---
General Admission date:: 04/16/23 Discharge date: 04/18/23 HPI HPI HPI: Ms. Banerjee is a 62-year-old female who was admitted a month ago for CARLYN and weakness. Was discharged to a nursing facility where she was recently released to return home over the weekend. Has been living with her sister. Presented to the ER today due to complaint of vomiting 4-5 times this morning. Patient continues to have weakness. States that she was at the senior living for weakness and was responding to therapy, ambulating with a walker. This morning she went to the bathroom and became nauseous because of the litter box in her s ister's bathroom. Denies any blood in her vomit. No fever. Having some abdominal discomfort. Denies any bowel movement since Sunday. Stable on her baseline oxygen of 2 L. Attempts to trial p.o. intake in the ER were unsuccessful with persistent nausea and vomiting. Since going home from the senior living, she has still felt bad. Denies any dysuria, diarrhea. Shortness of breath and cough are at baseline for her. Has been taking her meds per her report. Chronic problems consist of the following:COPD with chronic respiratory failure on 2 L nasal cannula at home, CHF, hypertension, hyperlipidemia, prediabetes, GERD, immobility, and anxiety. Due to inability to tolerate p.o. intake, weakness, continued nausea and vomiting, the ER consulted medicine for admission for observation and p.o. challenge. Hospital Course Hospital Course Hospital Course: 62-year-old female with PMHx of COPD on 2 L nasal cannula, HFpEF, generalized anxiety disorder, hiatal hernia, and hyperlipidemia brought to the ER by EMS c/o abdominal pain nausea, vomiting. Labs fairly unremarkable in the ER. Patient unable to tolerate p.o. intake however. Medicine consulted by ER physician for admission. Discussed case with ER physician, given patient's intolerance to tolerate p.o. intake, not comfortable discharging patient home. Patient has done well. Emesis is resolved after patient had a bowel movement last night. Stable on her baseline oxygen. Ambulating independently, at baseline level of function. Will establish with home health as an outpatient. Stable to discharge home. Problems addressed as follows: Nausea and vomiting Abdominal pain -Patient presented with abdominal pain, nausea, no bowel movement since Sunday. Started on aggressive bowel regimen and antiemetics. Tolerated antiemetics well with improvement in her nausea. Necessitated enema to finally have a bowel movement. Abdominal pain and nausea and vomiting has resolved since bowel movement. Tolerating regular diet. Continue home medications including pantoprazole for GERD. Continue bowel regimen at discharge. Debility: PT and OT consulted. Doing well with ambulation. At baseline function. Discharge home with home health when stable. Chronic hypoxemic respiratory failure: On baseline oxygen 2 L continue DuoNebs every 6 as needed HFpEf: stable, continue home medications including Lipitor 10 mg HS, Jardiance 10 mg daily; holding lisinopril and metoprolol due to low blood pressure. Anxiety and depression disorder: Continue home regimen of clonazepam and sertraline Stable to discharge home. Home health consulted. Exam Data for Last 24 hours Vital signs and Labs for Last 24 Hours: Temp Pulse Resp BP Pulse Ox O2 Del Method O2 Flow Rate 98.2 F 72 16 124/68 100 Nasal Cannula 2 04/18/23 07:45 04/18/23 07:45 04/18/23 07:45 04/18/23 07:45 04/18/23 07:45 04/18/23 07:45 04/18/23 07:00 FiO2 28 04/17/23 18:48 Laboratory Results - last 24 hr 04/18/23 06:32: WBC 5.3, RBC 4.11 L, Hgb 12.2, Hct 37.7, MCV 91.6, MCH 29.7, MCHC 32.4, RDW 13.4, Plt Count 181, MPV 8.7, Neut % (Auto) 40.3, Lymph % (Auto) 45.3, [place] % (Auto) 8.3, Eos % (Auto) 5.5, Baso % (Auto) 0.7, Neut # (Auto) 2.1, Lymph # (Auto) 2.4, [place] # (Auto) 0.4, Eos # (Auto) 0.3, Baso # (Auto) 0.0, Sodium 136, Potassium 4.0 D, Chloride 97 L, Carbon Dioxide 39 H, Anion Gap 4.0 L, BUN 15, Creatinine 0.60, Estimated Creat Clear 62, Estimated GFR 102, Est GFR ( Amer) 123, Glucose 89, Calcium 8.2 L, Magnesium 1.8 I & O for Last 24 hours: Intake & Output 04/15/23 04/16/23 04/17/23 04/18/23 23:59 23:59 23:59 23:59 Intake Total 540 / 540 950 / 950 Output Total 700 / 950 250 / 250 Balance 540 / 540 250 / 0 -250 / -250 Weight 63.588 kg 66.497 kg 66.497 kg Constitutional Constitutional: no acute distress, thin, chronically ill appearing and 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 *Routine HEENT Exam Head: Present normocephalic Eye: Present EOMI and PERRL ENT: Present mucous membranes moist *Routine Neck Exam Neck: Present supple; Absent lymphadenopathy *Routine Respiratory Exam Respiratory: Present wheezes, diminished air movement, normal respiratory effort and symmetric chest movement; Absent rhonchi or crackles Comments: barrel chested *Routine Cardiovascular Exam Cardiovascular: Present RRR and tachycardia *Routine Abdominal Exam Abdominal: Present soft and normoactive bowel sounds; Absent tenderness *Routine Rectal Exam Patient deferred: visual exam *Routine Exam Patient deferred: external exam *Routine Extremities Exam Extremities: Present full ROM, pulses intact and normal capillary refill; Absent cyanosis, clubbing or edema Comments: thin extremities *Routine Skin Exam Skin: Present intact and warm; Absent rash *Routine Neurological Exam Neurological: Present alert, oriented X3 and moving all extremities; Absent sensory deficit, motor deficit or altered mental status Routine Psychiatric Exam Psychiatric: Present normal affect, normal thought process, cooperative, good insight and good judgment Results Data Completed and Pending Labs on day of discharge: Labs from last 24 hours 04/18/23 06:32 WBC 5.3 RBC 4.11 L Hgb 12.2 Hct 37.7 MCV 91.6 MCH 29.7 MCHC 32.4 RDW 13.4 Plt Count 181 MPV 8.7 Neut % (Auto) 40.3 Lymph % (Auto) 45.3 [place] % (Auto) 8.3 Eos % (Auto) 5.5 Baso % (Auto) 0.7 Neut # (Auto) 2.1 Lymph # (Auto) 2.4 [place] # (Auto) 0.4 Eos # (Auto) 0.3 Baso # (Auto) 0.0 Sodium 136 Potassium 4.0 D Chloride 97 L Carbon Dioxide 39 H Anion Gap 4.0 L BUN 15 Creatinine 0.60 Estimated Creat Clear 62 Estimated GFR 102 Est GFR ( Amer) 123 Glucose 89 Calcium 8.2 L Magnesium 1.8 DS: Diagnosis Discharge Diagnosis (1) Intractable nausea and vomiting: Status: Acute Code(s): R11.2 - Nausea with vomiting, unspecified (2) Abdominal pain: Status: Acute Code(s): R10.9 - Unspecified abdominal pain Qualifiers: Abdominal location: unspecified location Qualified Code(s): R10.9 - Unspecified abdominal pain (3) GERD (gastroesophageal reflux disease): Status: Acute Code(s): K21.9 - Gastro-esophageal reflux disease without esophagitis Qualifiers: Esophagitis presence: without esophagitis Qualified Code(s): K21.9 - Gastro-esophageal reflux disease without esophagitis (4) HLD (hyperlipidemia): Status: Acute Code(s): E78.5 - Hyperlipidemia, unspecified Qualifiers: Hyperlipidemia type: unspecified Qualified Code(s): E78.5 - Hyperlipidemia, unspecified (5) (HFpEF) heart failure with preserved ejection fraction: Status: Acute Code(s): I50.30 - Unspecified diastolic (congestive) heart failure Qualifiers: Heart failure chronicity: chronic Qualified Code(s): I50.32 - Chronic diastolic (congestive) heart failure (6) Generalized anxiety disorder: Status: Acute Code(s): F41.1 - Generalized anxiety disorder (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 Code(s): F06.31 - Mood disorder due to known physiological condition with depressive features (8) Chronic respiratory failure with hypoxia, on home oxygen therapy: Status: Chronic Code(s): J96.11 - Chronic respiratory failure with hypoxia; Z99.81 - Dependence on supplemental oxygen Meds Home Medications and Allergies Home Medications Medication Instructions Recorded Confirmed Type montelukast 10 mg tablet 10 mg PO PM Allergy symptoms 12/04/21 04/16/23 History metoprolol tartrate 25 mg tablet 12.5 mg PO BID #90 tabs 02/26/23 04/16/23 Rx empagliflozin 10 mg tablet 10 mg PO DAILY 03/20/23 04/16/23 History (Jardiance) sertraline 100 mg tablet 100 mg PO DAILY 03/20/23 04/16/23 History ipratropium 0.5 mg-albuterol 3 mg 3 ml inhalation Q6HP PRN Shortness 03/21/23 04/16/23 Rx (2.5 mg base)/3 mL nebulization Of Breath #0 mL soln polyethylene glycol 3350 17 gram 17 g PO DAILYP PRN Constipation #0 03/21/23 04/16/23 Rx oral powder packet (Miralax) ea tizanidine 4 mg capsule 4 mg PO Q8H muscle spasms #90 caps 04/05/23 04/16/23 Rx clonazepam 0.5 mg tablet (Klonopin) 0.5 mg PO BID Anxiety 30 days #60 04/12/23 04/16/23 Rx tabs gabapentin 800 mg tablet 800 mg PO TID Pain 30 days #90 tabs 04/12/23 04/16/23 Rx oxycodone 5 mg tablet 5 mg PO BID pain #60 tabs 04/13/23 04/16/23 Rx atorvastatin 10 mg tablet (Lipitor) 10 mg PO HS High Cholesterol 04/16/23 04/16/23 History fexofenadine 180 mg tablet 180 mg PO DAILY Allergy Symptoms 04/16/23 04/16/23 History ondansetron HCl 4 mg tablet 4 mg PO Q8H PRN nausea and vomiting 04/16/23 04/16/23 History pantoprazole 40 mg tablet,delayed 40 mg PO DAILY Acid Reflux 04/16/23 04/16/23 History release ipratropium 20 mcg-albuterol 100 1 puff inhalation Q6H 04/17/23 04/17/23 History mcg/actuation mist for inhalation (Combivent Respimat) metformin 500 mg tablet 500 mg PO BID Diabetes 04/17/23 04/17/23 History fluticasone fur. 100 mcg-umeclid 1 inh inhalation DAILY 30 days #1 04/18/23 Rx 62.5 mcg-vilant 25 mcg ea inhalat.powder (Trelegy Ellipta) magnesium oxide 400 mg (241.3 mg 400 mg PO BID 30 days #60 tabs 04/18/23 Rx magnesium) tablet metoclopramide HCl 5 mg tablet 5 mg PO ACHS PRN Nausea And 04/18/23 Rx Vomiting 10 days #40 tabs New Prescriptions to Start Prescriptions: [id number] [Trelegy Ellipta] Cedric Bermeo magnesium oxide Cedric Bermeo metoclopramide HCl Cedric Bermeo Allergies Allergy/AdvReac Type Severity Reaction Status Date / Time hydrocodone Allergy Severe cant breath Verified 02/07/23 10:59 [From [facility] (hydrocodone-acetamin)] Penicillins Allergy Unknown Unknown Verified 02/07/23 10:59 allergy reaction Discharge Plan Disposition Patient Disposition: Home Health Service Condition: Good Discharge Order Discharge Orders: Discharge Order (Routine); Ordered 04/18/23 Ordered By: Cedric Bermeo Follow up Plan Follow up with: Raad Marsh MD [Primary Care Provider] - 04/30/23 9:45 am Prescriptions/Medication Reconciliation: New magnesium oxide 400 mg (241.3 mg magnesium) Tablet 400 mg PO BID 30 Days Qty: 60 0RF metoclopramide HCl 5 mg Tablet 5 mg PO ACHS PRN (Reason: Nausea And Vomiting) 10 Days Qty: 40 0RF Trelegy Ellipta 100-62.5-25 mcg Blister With Device 1 inh inhalation DAILY 30 Days Qty: 1 0RF Continued metoprolol tartrate 25 mg tablet 12.5 mg PO BID Qty: 90 0RF tizanidine 4 mg capsule 4 mg PO Q8H Qty: 90 10RF Rx Instructions: scheduled please gabapentin 800 mg tablet 800 mg PO TID 30 Days Qty: 90 0RF clonazepam [Klonopin] 0.5 mg tablet 0.5 mg PO BID 30 Days Qty: 60 0RF oxycodone 5 mg tablet 5 mg PO BID Qty: 60 0RF Rx Instructions: scheduled please montelukast 10 MG tablet 10 mg PO PM sertraline 100 mg tablet 100 mg PO DAILY Jardiance 10 mg tablet 10 mg PO DAILY ipratropium-albuterol 0.5 mg-3 mg(2.5 mg base)/3 mL Solution For Nebulization 3 ml inhalation Q6HP PRN (Reason: Shortness Of Breath) Qty: 0 0RF polyethylene glycol 3350 [Miralax] 17 gram Powder In Packet 17 g PO DAILYP PRN (Reason: Constipation) Qty: 0 0RF fexofenadine 180 mg Tablet 180 mg PO DAILY pantoprazole 40 mg tablet,delayed release (DR/EC) 40 mg PO DAILY atorvastatin [Lipitor] 10 mg tablet 10 mg PO HS ondansetron HCl 4 mg tablet 4 mg PO Q8H PRN (Reason: nausea and vomiting) metformin 500 mg tablet 500 mg PO BID Combivent Respimat 20-100 mcg/actuation mist 1 puff INHALATION Q6H Discontinued lisinopril 10 mg tablet 10 mg PO DAILY Problem Reconciliation Problems Reviewed?: Yes Patient Discharge Instructions ACTIVITY: Continue current activity DIET: continue same diet Patient Instructions: Nausea and Vomiting-Adult Providers Primary Care Provider: Raad Marsh Admit Provider: Cedric Bermeo Attending Provider: Cedric Bermeo
[2023-04-18] MEDS: POTASSIUM CHLORIDE 20MEQ TAB 20 MEQ PO ×2 (08:43→12:35)
[2023-04-18] MEDS: GABAPENTIN 800MG TABLET 800 MG PO ×2 (08:43→12:35)
[2023-04-18] MEDS: EMPAGLIFLOZIN 10MG TABLET 10 MG PO (08:43)
[2023-04-18] MEDS: SERTRALINE 100MG TABLET 100 MG PO (08:43)
[2023-04-18] MEDS: OXYCODONE 5MG IMMEDIATE RELEASE TABLET 5 MG PO (08:43)
[2023-04-18] MEDS: clonazePAM 0.5MG TABLET 0.5 MG PO (08:43)
[2023-04-18] MEDS: MAGNESIUM OXIDE 400MG TABLET 400 MG PO (08:43)
[2023-04-18] MEDS: PANTOPRAZOLE 40MG TABLET 40 MG PO (08:43)
--- NOTE | 2023-04-18 10:12 | PC.NURSE ---
Tried to call pt's sister with no answer. iv removed.
[2023-04-18 10:26] VITALS: PULSE 79; PULSE 84; O2SAT 99
[2023-04-18] MEDS: IPRATROPIUM/ALBUTEROL 3 ML NEB IH (10:26)
--- NOTE | 2023-04-18 10:28 | PC.NURSE ---
RESP CARE NOTE: Pt on 3 lpm nc. Oxygen decreased to 1 lpm will continue to monitor patient.
--- NOTE | 2023-04-20 14:11 | CARE MANAGER ---
Spoke with patient related to hospital discharge. Patient picked up new medications but did not realize she was to discontinue her lisionpril. Verified this by DC summary. Patient will stop taking for now. She is aware of follow up appointment and that home health is to come and see her. Denies questions or concerns at this time.
== END 2023-04-18 14:29 | disposition home health service (06) ==
LOC: ER 14:57 → 2ND 15:25
PROVIDERS: Admitting Provider Internal Medicine Adolescent Medicine; Emergency Provider Emergency Medicine; PCP Emergency Medicine; Visit Provider Internal Medicine Adolescent Medicine
DX: R11.2 Nausea with vomiting, unspecified (principal); R10.9 Unspecified abdominal pain; K21.9 Gastro-esophageal reflux disease without esophagitis; E78.5 Hyperlipidemia, unspecified; I50.32 Chronic diastolic (congestive) heart failure; F41.1 Generalized anxiety disorder; F06.31 Mood disorder due to known physiological condition with depressive features; J96.11 Chronic respiratory failure with hypoxia; Z99.81 Dependence on supplemental oxygen; J44.9 Chronic obstructive pulmonary disease, unspecified; Z86.16 Personal history of COVID-19; Z87.891 Personal history of nicotine dependence; R05.3 Chronic cough
CPT/HCPCS: 36415; 71045; 80048; 80053; 81001; 83690; 83735; 84484; 85025; 87636; 93005; 94640; 94761; 97163; 97165; 99285; G0378; J2405

== ENCOUNTER 2023-05-10 12:00 | Inpatient (IN) | payer MEDICARE, SELFPAY ==
[2023-05-10] VITALS (21 sets, daily range): BP systolic 127–174; BP diastolic 78–98; PULSE 100–120; RESP 13–26; TEMP 36.7–36.9; O2SAT 88–100; BMI 22.6; BMI 23.8
--- NOTE | 2023-05-10 12:08 | XR_ITS ---
FINAL REPORT CLINICAL HISTORY: SOA, resp failure COMPARISON: 04/16/2023 FINDINGS: The heart size is normal. The mediastinum is normal. There is no focal infiltrate or edema. There are no pleural effusions. There is no pneumothorax. There are fracture deformities of the posterior sixth and seventh ribs on the right side. IMPRESSION: No acute cardiopulmonary process Reviewed, Interpreted and Dictated by Constantino Patino MD Transcribed by Saima Saleh Authenticated and [facility]
[2023-05-10 12:18] LABS: Coronavirus 19, PCR Not Detected (NotDetected); Influenza A, PCR Not Detected (NotDetected); Influenza B, PCR Not Detected (NotDetected)
--- NOTE | 2023-05-10 12:26 | HMH.EDGENADL ---
Discharge Plan Disposition Patient Disposition: Admitted Clinical Impressions Clinical Impression: Acute exacerbation of chronic obstructive pulmonary disease, Acute on chronic respiratory failure with hypoxia and hypercapnia Discharge ED Provider: Portia Sebastian General Adult HPI General Chief complaint: Shortness of Breath/Dyspnea Stated complaint: SOA Time Seen by Provider: 05/10/23 12:04 Mode of Arrival: Ambulatory Source of Information: Patient and EMS Limitations: No Limitations Description of Symptoms (Recalled from ER Triage Doc. by RN): 62 yo F presents to ED via ambulance for shortness of air. pt wears 2L at baseline. pt reports feelings of dyspnea, fatigue, weakness since sunday. pt reports some of her neighbors have tested positive for covid. History of Present Illness HPI narrative: This patient is a 62-year-old female with a history of COPD on 2 L nasal cannula, heart failure with preserved ejection fraction, chronic debility, hypertension, hyperlipidemia, diabetes, and anxiety presenting to the emergency department for evaluation with concern that she is not feeling well. She states that since Sunday, she has had fatigue, shortness of breath, cough, nausea, vomiting, and weakness. She notes that some of her neighbors have tested positive for COVID-19. She lives at home with her sister and has home health, who came and noted the patient was satting in the mid 80s on her home oxygen today. Given this, EMS was contacted. EMS noted that the patient was satting well on 3 L nasal cannula in route, up from her baseline of 2 L. On medical record review, the patient has been admitted twice in the last 2 months with concern for respiratory failure. She also had a recent care home facility stay for rehabilitation prior to being discharged home to the care of her sister. Related Data Home Medications Medication Instructions Recorded Confirmed montelukast 10 mg tablet 10 mg PO PM Allergy symptoms 12/04/21 05/10/23 empagliflozin 10 mg tablet 10 mg PO DAILY Heart Failure 03/20/23 05/10/23 (Jardiance) sertraline 100 mg tablet 100 mg PO DAILY Mood 03/20/23 05/10/23 atorvastatin 10 mg tablet (Lipitor) 10 mg PO HS Cholesterol 04/16/23 05/10/23 fexofenadine 180 mg tablet 180 mg PO DAILY Allergy Symptoms 04/16/23 05/10/23 ondansetron HCl 4 mg tablet 4 mg PO Q8HP PRN nausea and 04/16/23 05/10/23 vomiting pantoprazole 40 mg tablet,delayed 40 mg PO DAILY Acid Reflux 04/16/23 05/10/23 release fluticasone fur. 100 mcg-umeclid 1 inh inhalation DAILY Breathing 05/10/23 05/10/23 62.5 mcg-vilant 25 mcg Problems inhalat.powder (Trelegy Ellipta) magnesium oxide 400 mg (241.3 mg 400 mg PO BID Supplement 05/10/23 05/10/23 magnesium) tablet metoprolol tartrate 25 mg tablet 12.5 mg PO BID High Blood Pressure 05/10/23 05/10/23 Previous Rx's Medication Instructions Recorded clonazepam 0.5 mg tablet (Klonopin) 0.5 mg PO BID Anxiety 30 days #60 04/12/23 tabs gabapentin 800 mg tablet 800 mg PO TID Pain 30 days #90 tabs 05/03/23 oxycodone 5 mg tablet 2.5 mg PO DAILY pain #21 tabs 05/03/23 tizanidine 4 mg capsule 6 mg PO TID muscle spasms 30 days 05/03/23 #135 caps metformin 500 mg tablet 500 mg PO DAILY Diabetes #90 tabs 05/07/23 Allergies Allergy/AdvReac Type Severity Reaction Status Date / Time hydrocodone Allergy Severe cant breath Verified 05/02/23 15:16 [From Panlor (hydrocodone-acetamin)] Penicillins Allergy Unknown Unknown Verified 05/02/23 15:16 allergy reaction [facility] Disclaimer: The information contained in this section may have been updated after the patient was seen, as this information can be updated by other users. Medical History Acute and chronic respiratory failure with hypercapnia Chronic hypercapnic respiratory failure Chronic respiratory failure with hypoxia and hypercapnia Chronic respiratory failure with hypoxia
--- NOTE | 2023-05-10 12:35 | ECG_ITS ---
APPROVED REPORT Exam: Resting ECG HR:106 bpm ECG Measurements Heart Rate 106 AXES MT 160 P 89 QRSd 100 QRS 101 QT 327 T 75 QTc 389 Conclusion SINUS TACHYCARDIA WITH OCCASIONAL VENTRICULAR PREMATURE COMPLEXES POSSIBLE RIGHT ATRIAL ENLARGEMENT [0.25mV P-WAVE] RIGHT AXIS DEVIATION [QRS AXIS > 100] NONSPECIFIC ST ELEVATION [0.05+ mV ST ELEVATION] ABNORMAL ECG UNCONFIRMED REPORT Electronically signed by : Case Barrios MD 05/11/2023 14:47:45
[2023-05-10 12:48] LABS: Basophils # 0.1 K/mm3 (0-0.2); Basophils % 0.9 % (0.1-2.0); Eosinophils % 0.4 % (0.1-12.0); Hematocrit 44.9 % (37.0-47.0); Hemoglobin 14.3 g/dL (12.2-16.2); Lymphocytes # 2.2 K/mm3 (0.7-4.5); Lymphocytes % 33.3 % (10-50); Mean Corpuscular HGB Conc 31.9 g/dL (31.8-35.4); Mean Corpuscular Hemoglobin 29.8 pg (27.0-31.2); Mean Corpuscular Volume 93.4 fl (81-99); Mean Platelet Volume 8.9 fl (7.4-10.4); Monocytes # 0.4 K/mm3 (0.1-1.0); Monocytes % 6.1 % (1.7-9.3); Neutrophils % 59.3 % (37.0-80.0); Platelet Count 146 K/mm3 (142-424); Red Cell Distribution Width 12.8 % (11.5-17.5); White Blood Count 6.8 K/mm3 (4.8-10.8)
[2023-05-10 12:51] LABS: VBG Base Excess 7.6 mmol/L (-2.4-2.3); VBG HCO3 34.5 mmol/L (23-30); VBG Oxygen Saturation 88.7 % (50-70); VBG PH 7.27 mmol/L (7.31-7.41); VBG PO2 53.3 mmol/L (28-40); VBG Total CO2 36.8 mmol/L (23-27)
[2023-05-10 12:55] LABS: VBG PCO2 76.5 mmol/L (35-51)
--- NOTE | 2023-05-10 12:59 | PC.NURSE ---
Assumed patient care at this time
[2023-05-10 13:00] LABS: Microscopic, Urine URINE MICROSCOPIC (MICROSCOPIC)
[2023-05-10 13:01] LABS: Chloride 97 mmol/L (98-107); Sodium 141 mmol/L (136-145)
[2023-05-10 13:04] LABS: Alanine Aminotransferase 23 U/L (12-78); Albumin Level 4.3 g/dl (3.5-5.0); Albumin/Globulin Ratio 1.4 (1.1-1.8); Alkaline Phosphatase 58 U/L (38-126); Aspartate Amino Transferase 29 U/L (14-36); Bilirubin,Total 0.5 mg/dl (0.2-1.3); Blood Urea Nitrogen 20 mg/dl (7-17); Calcium 8.6 mg/dl (8.4-10.2); Creatinine Clearance Estimated 59 mL/min (50-200); Estimated Glomerular Filt Rate 125 ml/min (>60); GFR (African American) 152 ML/MIN (>60); Globulin 3.1 g/dL (1.3-3.2); Glucose 121 mg/dl (74-100); Total Protein,Serum 7.4 g/dl (6.3-8.2)
--- NOTE | 2023-05-10 13:10 | PC.NURSE ---
Rounded on patient; RT @ BS placing patient on Bipap. Nothing needed at this time; call light within reach of patient
[2023-05-10 13:11] LABS: Carbon Dioxide 40 mmol/L (22.0-30.0)
[2023-05-10 13:13] LABS: NT Pro Brain Natriuretic Pep. 366 pg/mL (0-125)
--- NOTE | 2023-05-10 13:13 | PC.NURSE ---
respiratory at bs placing pt on bipap
[2023-05-10 13:17] LABS: Troponin I < 0.01 ng/ml (0.00-0.034)
[2023-05-10 13:21] LABS: T4 (Thyroxine) 10.9 ug/dl (5.53-11.0)
[2023-05-10 13:21] LABS: Appearance,Urine CLEAR (Clear); Blood, Urine 1+ (Negative); Color,Urine YELLOW (Yellow); Glucose,Urine (UA) 3+ (Negative); Ketones,Urine Negative (Negative); Leukocyte Esterase,Urine TRACE (Negative); Nitrate,Urine Negative (Negative); Protein,Urine TRACE (Negative); Urobilinogen,Urine 0.2 EU/dl (0.2)
[2023-05-10 13:29] LABS: Bilirubin,Urine 1+ (Negative)
[2023-05-10 13:34] LABS: Thyroid Stimulating Hormone 0.37 uIU/mL (0.465-4.68)
[2023-05-10 13:39] LABS: Lipase 15 U/L (23-300)
[2023-05-10 13:55] LABS: Bacteria,Urine Trace /lpf; RBC,Urine Occasional #/hpf (0-3)
--- NOTE | 2023-05-10 14:09 | PC.NURSE ---
Rounded on patient; call light within reach of patient
[2023-05-10 14:30] LABS: VBG Base Excess 8.5 mmol/L (-2.4-2.3); VBG HCO3 35.9 mmol/L (23-30); VBG Oxygen Saturation 98.4 % (50-70); VBG PH 7.24 mmol/L (7.31-7.41); VBG Total CO2 38.5 mmol/L (23-27)
--- NOTE | 2023-05-10 14:30 | PC.NURSE ---
Patient calling out stating she was nauseous; notified. Call light within reach of patient
[2023-05-10 14:34] LABS: VBG PCO2 86.1 mmol/L (35-51)
[2023-05-10 14:36] LABS: Adenovirus,PCR Not Detected (NotDetected); Coronavirus 19, PCR Not Detected (NotDetected); Coronavirus 229E Not Detected (NotDetected); Coronavirus NL63 Not Detected (NotDetected); Coronavirus OC43 Not Detected (NotDetected); Coronovirus HKU1,PCR Not Detected (NotDetected); Human Metapneumovirus Not Detected (NotDetected); Influenza A, PCR Not Detected (NotDetected); Influenza AH1, 2009 Not Detected (NotDetected); Influenza AH1, PCR Not Detected (NotDetected); Influenza AH3,PCR Not Detected (NotDetected); Influenza B, PCR Not Detected (NotDetected); Parainfluenza 1, PCR Not Detected (NotDetected); Parainfluenza 2, PCR Not Detected (NotDetected); Parainfluenza 3, PCR Not Detected (NotDetected); Parainfluenza 4, PCR Not Detected (NotDetected); Respiratory Syncytial Virus Not Detected (NotDetected)
--- NOTE | 2023-05-10 14:36 | EXP.HP ---
History of Present Illness *Admission Date: 05/10/23 *Reason for visit:: dyspnea *History of present illness: Ms. Banerjee is a 62-year-old female with severe COPD who continues to smoke. She presented to the ER via ambulance due to shortness of air. Normally wears 2 to 3 L at home at baseline. Has felt more short of breath, fatigued, weak since Sunday. Has neighbors that have tested positive for COVID. In the ER she was found to have hypoxia on her baseline oxygen, necessitating 4 L nasal cannula. Blood gas showed mild hypercapnia. Treated briefly with BiPAP. Denies chest pain. COVID and flu they have. Comprehensive respiratory panel pending. Started on breathing treatments and steroids. Given her acute worsening of symptoms and severity of illness, medicine was consulted for admission. After arriving to the floor, patient is on 4 L nasal cannula oxygen. Additional history obtained. She lives at home with her sister and has home health, who came and noted the patient was satting in the mid 80s on her home oxygen today. Given this, EMS was contacted. EMS noted that the patient was satting well on 3 L nasal cannula in route, up from her baseline of 2 L. On medical record review, the patient has been admitted twice in the last 2 months with concern for respiratory failure. She also had a recent assisted facility stay for rehabilitation prior to being discharged home to the care of her sister. [facility] Disclaimer: The information contained in this section may have been updated after the patient was seen, as this information can be updated by other users. Medical History Acute and chronic respiratory failure with hypercapnia Chronic hypercapnic respiratory failure Chronic respiratory failure with hypoxia and hypercapnia Chronic respiratory failure with hypoxia, on home oxygen therapy Chronically on benzodiazepine therapy COPD (chronic obstructive pulmonary disease) COPD exacerbation COPD exacerbation COVID-19 COVID-19 virus infection Decubitus ulcer limited to breakdown of skin (stage 2) Dependence on non-invasive ventilation Depression due to physical illness Generalized anxiety disorder GERD (gastroesophageal reflux disease) Hypertension Suicidal thoughts Surgical History History of cholecystectomy History of colonoscopy History of esophagogastroduodenoscopy History of hysterectomy Family History Father Mother Pancreatic cancer Father Cancer Mother Social History Smoking Status: Former smoker tobacco type: cigarettes packs per day: 0 how long ago did patient quit smokin years second hand exposure: Yes alcohol intake: never substance use type: denies use current occupational status: disabled Travel in the last 8 weeks: None household members: family housing: house number of children: 1 caffeine: Yes Review of Systems Review of Systems Review of systems (narrative): 14 point review of systems performed, pertinent positives and negatives as per HPI Meds Home Medications and Allergies Home Medications Medication Instructions Recorded Confirmed Type montelukast 10 mg tablet 10 mg PO PM Allergy symptoms 12/04/21 05/10/23 History empagliflozin 10 mg tablet 10 mg PO DAILY Heart Failure 03/20/23 05/10/23 History (Jardiance) sertraline 100 mg tablet 100 mg PO DAILY Mood 03/20/23 05/10/23 History clonazepam 0.5 mg tablet (Klonopin) 0.5 mg PO BID Anxiety 30 days #60 04/12/23 05/10/23 Rx tabs atorvastatin 10 mg tablet (Lipitor) 10 mg PO HS Cholesterol 04/16/23 05/10/23 History fexofenadine 180 mg tablet 180 mg PO DAILY Allergy Symptoms 04/16/23 05/10/23 History ondansetron HCl 4 mg tablet 4 mg PO Q8HP PRN nausea and 04/16/23 05/10/23 History vomiting pantoprazole 4
--- NOTE | 2023-05-10 14:40 | PC.NURSE ---
calling care management for bed assignment Dr. Bermeo had previously called and pt will be in a step down bed
--- NOTE | 2023-05-10 14:42 | PC.NURSE ---
Patient refusing Bipap at this time due to Vomiting. MD and RT notified
--- NOTE | 2023-05-10 14:42 | HMH.PHAINT1 ---
Pharmacy Intervention Comments: MEDICATION RECONCILIATION COMPLETED ON PATIENT USING EXTERNAL FILL HISTORY FROM PHARMACY. -NOHELIA IZAGUIRRE, DIONNAD
[2023-05-10 14:49] LABS: Lactic Acid 0.6 mmol/L (0.7-2.1)
--- NOTE | 2023-05-10 15:03 | PC.NURSE ---
Called report to Mima BURDICK
[2023-05-10 16:36] LABS: Rhinovirus/Enterovirus Detected (NotDetected)
[2023-05-10 16:37] LABS: Troponin I < 0.01 ng/ml (0.00-0.034)
[2023-05-10 17:31] LABS: ABG Base Excess 8.1 mmol/L (-2.4-2.3); ABG HCO3 35.3 mmhg (22.0-26.0); ABG Oxygen Saturation 90 % (90-100); ABG PH 7.25 mmol/L (7.35-7.45); ABG PO2 56.6 mmhg (80-100); ABG TCO2 37.8 mmhg (23-27)
[2023-05-10 17:33] LABS: Allen's Test Acceptable; Oxygen 2L %; Source Left Radial
--- NOTE | 2023-05-10 17:53 | PC.NURSE ---
1733 Dr Pierre called this RN in reference to ABG results called by RT. per place pt back on bipap and make her NPO throughout the night. 1735 orders relayed to Alvina in RT face to face. phone call also transferred to Alvina at this time as well.
[2023-05-10 18:00] LABS: ABG PCO2 81.9 mmhg (35.0-45.0)
[2023-05-10 19:03] LABS: Troponin I < 0.01 ng/ml (0.00-0.034)
--- NOTE | 2023-05-10 20:20 | PC.NURSE ---
Patient requested to have Bipap removed for trial period. She is has tolerated well on her normal 2L/NC for the past 20 minutes of current documenting time.
--- NOTE | 2023-05-10 20:36 | PC.NURSE ---
Patient states she does not want to place her Bipap back on at this time and would like to keep her 2L via NC on. Patient has NAD, VSS, with equal and appropriate respirations. Patient agreeable that if her breathing becomes worse or her oxygen drops below 90% then she will let me place her Bipap back on.
--- NOTE | 2023-05-10 23:02 | PC.NURSE ---
Addendum entered by Pb [place] RN 05/10/23 23:06: FiO2 45% Original Note: Patient still tolerating being off her Bipap, but was able to educate her on the reason she needs to wear her Bipap. She is agreeable. Patient placed back on Bipap with same settings /, RR 24, FiO2 35%
--- NOTE | 2023-05-10 23:51 | PC.NURSE ---
Patient called back out stating she was going to remove her Bipap because she couldn't handle it being on her face anymore. Patient not in distress with VSS when RN entered room. Patient educated on need for Bipap, but still refused to place back on. Patient placed on her normal 2L/NC which she wears at home. Tolerating well. Care continues.
[2023-05-11] VITALS (25 sets, daily range): BP systolic 102–145; BP diastolic 39–93; PULSE 70–121; RESP 15–26; TEMP 36.6–37.9; O2SAT 92–100; BMI 22.9
[2023-05-11 05:59] LABS: Basophils % 0.5 % (0.1-2.0); Chloride 95 mmol/L (98-107); Eosinophils % 0.2 % (0.1-12.0); Hematocrit 44.7 % (37.0-47.0); Hemoglobin 14.3 g/dL (12.2-16.2); Lymphocytes # 1.8 K/mm3 (0.7-4.5); Lymphocytes % 28.4 % (10-50); Mean Corpuscular Hemoglobin 29.8 pg (27.0-31.2); Mean Corpuscular Volume 92.9 fl (81-99); Mean Platelet Volume 8.9 fl (7.4-10.4); Monocytes # 0.5 K/mm3 (0.1-1.0); Monocytes % 7.8 % (1.7-9.3); Neutrophils # 4.1 K/mm3 (1.8-7.8); Neutrophils % 63.3 % (37.0-80.0); Platelet Count 160 K/mm3 (142-424); Red Blood Count 4.81 M/mm3 (4.20-5.40); Red Cell Distribution Width 12.9 % (11.5-17.5); White Blood Count 6.5 K/mm3 (4.8-10.8)
[2023-05-11 06:00] LABS: Sodium 141 mmol/L (136-145)
[2023-05-11 06:02] LABS: Alanine Aminotransferase 22 U/L (12-78); Aspartate Amino Transferase 27 U/L (14-36); Blood Urea Nitrogen 25 mg/dl (7-17); Creatinine Clearance Estimated 58 mL/min (50-200); Estimated Glomerular Filt Rate 102 ml/min (>60); GFR (African American) 123 ML/MIN (>60)
[2023-05-11 06:03] LABS: Albumin Level 4.3 g/dl (3.5-5.0); Albumin/Globulin Ratio 1.5 (1.1-1.8); Alkaline Phosphatase 62 U/L (38-126); Bilirubin,Total 0.4 mg/dl (0.2-1.3); Calcium 8.7 mg/dl (8.4-10.2); Globulin 2.9 g/dL (1.3-3.2); Glucose 119 mg/dl (74-100); Total Protein,Serum 7.2 g/dl (6.3-8.2)
[2023-05-11 06:05] LABS: Magnesium 1.9 mg/dl (1.6-2.3)
[2023-05-11 06:10] LABS: Carbon Dioxide 40 mmol/L (22.0-30.0)
--- NOTE | 2023-05-11 06:45 | PC.NURSE ---
Patient called nurse to room requesting to be back on her Bipap. No specific reason voiced by patient. She is NAD, VSS on her 2L/NC. Bipap placed back on with previous settings 22/10, RR 24, FiO2 45% and tolerating well.
--- NOTE | 2023-05-11 06:47 | PC.NURSE ---
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 Patient between Bipap and NC per previous notes. Currently ending the shift with her Bipap in place. Medicated per JUL. Patient had no episodes of nausea and/or vomiting. She had requested ice chips to wet her mouth between wearing the Bipap which she tolerated well. Educated patient several times on NPO status and the need for her Bipap to be worn. NAD, VSS.
--- NOTE | 2023-05-11 08:10 | PC.NURSE ---
pt anxious and asked to be taken off bipap, placed pt on 2LNC and oxygen saturations 93%
--- NOTE | 2023-05-11 09:42 | PC.NURSE ---
courtesy tech note: pt rounded on. no verbalized needs at this time. call light w/in reach.
[2023-05-11 09:46] LABS: ABG Base Excess 10.2 mmol/L (-2.4-2.3); ABG HCO3 36.5 mmhg (22.0-26.0); ABG Oxygen Saturation 92 % (90-100); ABG PH 7.31 mmol/L (7.35-7.45); ABG PO2 62.8 mmhg (80-100); ABG TCO2 38.7 mmhg (23-27)
[2023-05-11 09:49] LABS: Allen's Test Acceptable; Oxygen 2lpm nc %; Source Right Radial
[2023-05-11 09:51] LABS: ABG PCO2 74.1 mmhg (35.0-45.0)
--- NOTE | 2023-05-11 09:57 | EXP.PULM.CON ---
History of Present Illness History of present illness: Ms. Banerjee is a 62-year-old female greater than [id number] smoking history and history of COPD on 2 L baseline oxygen supplementation at home, on triple inhaler therapy presented for worsening respiratory and found to be in hypoxic hypercapnic respite failure and pulmonary was called for further evaluation and management. Admits sick contacts [facility] Disclaimer: The information contained in this section may have been updated after the patient was seen, as this information can be updated by other users. Medical History Acute and chronic respiratory failure with hypercapnia Chronic hypercapnic respiratory failure Chronic respiratory failure with hypoxia and hypercapnia Chronic respiratory failure with hypoxia, on home oxygen therapy Chronically on benzodiazepine therapy COPD (chronic obstructive pulmonary disease) COPD exacerbation COPD exacerbation COVID-19 COVID-19 virus infection Decubitus ulcer limited to breakdown of skin (stage 2) Dependence on non-invasive ventilation Depression due to physical illness Generalized anxiety disorder GERD (gastroesophageal reflux disease) Hypertension Suicidal thoughts Surgical History History of cholecystectomy History of colonoscopy History of esophagogastroduodenoscopy History of hysterectomy Family History Father Mother Pancreatic cancer Father Cancer Mother Social History Smoking Status: Former smoker tobacco type: cigarettes packs per day: 0 how long ago did patient quit smokin years second hand exposure: Yes alcohol intake: never substance use type: denies use current occupational status: disabled Travel in the last 8 weeks: None household members: family housing: house number of children: 1 caffeine: Yes Review of Systems Constitutional Constitutional: Reports anorexia, Reports body ache(s) and Reports fatigue Eyes Eyes: Denies eye discharge, Denies dry eyes, Denies irritation and Denies itchy eyes ENT Ears, Nose, Mouth, and Throat: Denies epistaxis, Denies facial pain, Denies lip swelling and Denies throat swelling *Cardiovascular Cardiovascular: Reports dyspnea and Reports dyspnea on exertion *Respiratory Respiratory: Reports chest congestion, Reports cough, Reports dyspnea, Reports dyspnea on exertion, Reports excessive phlegm production and Reports wheezing *Gastrointestinal Gastrointestinal: Denies abdominal pain, Denies belching and Denies cramping *Musculoskeletal Musculoskeletal: Reports back pain, Reports myalgias and Reports other (No small joint swelling or Pain) Psychiatric Psychiatric: Denies homicidal ideation and Denies suicidal ideation Endocrine Endocrine: Reports fatigue and Denies heat intolerance Hematologic/Lymphatic Hematologic/Lymphatic: Denies easy bleeding and Denies lymphadenopathy Allergic/Immunologic Allergic/Immunologic: Denies itchy eyes, Denies lip swelling, Denies throat swelling and Reports wheezing Pulmonology Exam Inpatient Vital signs and Labs for Last 24 Hours: Temp Pulse Resp BP Pulse Ox O2 Del Method O2 Flow Rate 100.3 F H 103 H 19 141/92 H 93 L Nasal Cannula 2 05/11/23 08:00 05/11/23 08:00 05/11/23 08:00 05/11/23 08:00 05/11/23 08:30 05/11/23 08:57 05/11/23 08:57 FiO2 45 05/11/23 06:45 Laboratory Results - last 24 hr 05/10/23 12:04: Chlamy pneumoniae PCR TNP, Adenovirus (PCR) Not detected, B. pertussis DNA (PCR) TNP, Coronavirus OC43 (PCR) Not detected, Coronavirus HKU1 (PCR) Not detected, Coronavirus 229E (PCR) Not detected, SARS-CoV-2 (PCR) Not detected 05/10/23 12:04: SARS-CoV-2 (PCR) Not detected, Coronavirus NL63 (PCR) Not detected, Human Metapneumovir PCR Not detected, Influenza A (H1) PCR Not detected, Influ A (H1
--- NOTE | 2023-05-11 09:58 | PC.NURSE ---
CO2 still elevated on ABG, placed pt back on bipap, oxygen saturation 98%
--- NOTE | 2023-05-11 10:21 | HMH.OTEV ---
OT Inpatient Evaluation Rehab OT IP Evaluation Start: 05/11/23 07:09 Freq: ONCE Status: Active Protocol: Document 05/11/23 10:16 RMARSHALL (Rec: 05/11/23 10:[address] [facility] [id number]) Rehab OT IP Assessment Subjective History Pt oriented x 3 on arrival. Pt agreeable to engage in therapy evaluation. Pt admitted or 05/10/23 due to hypoxic respiratory failure. Ms. Banerjee is a 62-year-old female with severe COPD who continues to smoke. She presented to the ER via ambulance due to shortness of air. Normally wears 2 to 3 L at home at baseline. Has felt more short of breath, fatigued, weak since Sunday. Has neighbors that have tested positive for COVID. In the ER she was found to have hypoxia on her baseline oxygen , necessitating 4 L nasal cannula. Prior to being in the hospital , pt lived at home with her sister. Pt claims normally she was independent with all ADLs such as dressing, bathing , and feeding. Pt is dependent upon family for completion of all IADLs. Pt does use a walker during functional transfers. Subjective I just got sick. Objective Patient Orientation Person,Place,Birthday Right Upper Extremity Gross ROM WFL Left Upper Extremity Gross ROM WFL Bed Mobility bed mobility-scooting,bed mobility - supine/sit Assist Level Supervision/Stand by Transfer Training Sit/Stand Transfer Assist Level Supervision/Stand by Chair Transfer Ability Supervision/Stand by Chair Transfer Technique Sit to/from Ambulatory Chair Transfer Assistive Devices Rolling Walker Lower Body Dressing Ability Standby Assistance Rehab OT IP prob,goals,plan Problems Date of Evaluation: 05/11/23 Rehab Potential Rehab Potential Innapropriate for Skilled Therapy Discharge Plan OT Discharge Plan Pt appears to be at her
--- NOTE | 2023-05-11 11:34 | EXP.ACUTE.PN ---
Subjective *Date: 05/11/23 *Time: 11:37 Interval history: Patient pleasant on exam this morning. Reviewed labs however an ABG still shows some hypercarbia. Denies any chest pain. Fever this morning 100.3. Tolerating p.o. intake well off BiPAP. No further emesis this morning. Medical Exam Vital signs and Labs for Last 24 Hours: Vital Signs Temp Pulse Pulse Resp BP BP Pulse Ox 05/11/23 08:00 110 H 05/11/23 10:15 85 05/11/23 10:15 85 05/11/23 10:15 97 05/11/23 10:15 05/11/23 10:00 83 15 145/60 H 98 05/11/23 08:57 05/11/23 08:00 103 H 19 141/92 H 93 L 05/11/23 08:30 93 L 05/11/23 08:00 100.3 F H 05/11/23 06:45 115 H 24 98 05/11/23 06:10 106 H 05/11/23 06:10 121 H 05/11/23 06:10 94 L 05/11/23 06:14 05/11/23 06:00 100 H 22 132/89 100 05/11/23 05:00 05/11/23 04:00 98.6 F 102 H 20 134/81 100 05/11/23 03:00 05/11/23 02:24 87 05/11/23 02:24 88 05/11/23 00:00 93 L 05/11/23 00:00 110 H 05/11/23 02:00 88 21 102/61 L 98 05/11/23 01:00 05/11/23 00:00 97.8 F 90 20 140/91 H 93 L 05/10/23 23:47 93 L 05/10/23 23:00 05/10/23 23:00 98.0 F 105 H 21 153/89 H 98 05/10/23 22:00 102 H 19 140/78 93 L 05/10/23 21:48 107 H 05/10/23 21:48 107 H 05/10/23 20:39 05/10/23 20:00 98.0 F 120 H 24 139/86 96 05/10/23 20:00 120 H 05/10/23 18:31 05/10/23 18:00 120 H 20 128/89 88 L 05/10/23 17:57 05/10/23 17:47 05/10/23 17:43 109 H 05/10/23 17:43 111 H 05/10/23 16:00 110 H 05/10/23 16:00 109 H 20 156/85 H 94 L 05/10/23 16:48 114 H 05/10/23 16:48 113 H 05/10/23 16:48 92 L 05/10/23 15:35 103 H 18 174/97 H 97 05/10/23 15:00 05/10/23 15:42 110 H 95 05/10/23 15:32 98.4 F 05/10/23 15:15 98.4 F 106 H 17 161/94 H 05/10/23 15:00 100 H 17 161/94 H 99 05/10/23 14:30 108 H 15 165/96 H 93 L 05/10/23 14:00 100 H 14 153/98 H 100 05/10/23 13:25 106 H 05/10/23 13:25 102 H 05/10/23 13:25 05/10/23 13:30 102 H 13 135/93 H 100 05/10/23 13:00 107 H 169/98 H 96 05/10/23 12:00 98.4 F 107 H 19 127/91 H 94 L O2 Del Method O2 Flow Rate FiO2 05/11/23 08:00 05/11/23 10:15 05/11/23 10:15 05/11/23 10:15 BiPAP 45 05/11/23 10:15 45 05/11/23 10:00 BiPAP 05/11/23 08:57 Nasal Cannula 2 05/11/23 08:00 Nasal Cannula 2 05/11/23 08:30 Nasal Cannula 2 05/11/23 08:00 05/11/23 06:45 BiPAP 45 05/11/23 06:10 05/11/23 06:10 05/11/23 06:10 Nasal Cannula 2 05/11/23 06:14 Nasal Cannula 2 05/11/23 06:00 Nasal Cannula 2 05/11/23 05:00 Nasal Cannula 2 05/11/23 04:00 Nasal Cannula 2 05/11/23 03:00 Nasal Cannula 2 05/11/23 02:24 05/11/23 02:24 05/11/23 00:00 Room Air, Nasal Cannula 05/11/23 00:00 05/11/23 02:00 Nasal Cannula 2 05/11/23 01:00 Nasal Cannula 2 05/11/23 00:00 Nasal Cannula 2 05/10/23 23:47 Nasal Cannula 2 05/10/23 23:00 BiPAP 6 05/10/23 23:00 BiPAP 45 05/10/23 22:00 Nasal Cannula 2 05/10/23 21:48 05/10/23 21:48 05/10/23 20:39 Nasal Cannula 2 05/10/23 20:00 Nasal Cannula 2 05/10/23 20:00 05/10/23 18:31 BiPAP 05/10/23 18:00 BiPAP 27 05/10/23 17:57 Nasal Cannula 6 05/10/23 17:47 27 05/10/23 17:43 05/10/23 17:43 05/10/23 16:00 05/10/23 16:00 BiPAP 50 05/10/23 16:48 05/10/23 16:48 05/10/23 16:48 Nasal Cannula 2 05/10/23 15:35 Nasal Cannula 4 05/10/23 15:00 Nasal Cannula 4 05/10/23 15:42 Nasal Cannula 4 05/10/23 15:32 05/10/23 15:15 BiPAP 05/10/23 15:00 BiPAP 05/10/23 14:30 Nasal Cannula 4 05/10/23 14:00 BiPAP 05/10/23 13:25
--- NOTE | 2023-05-11 11:42 | HMH.PTEV ---
Physical Therapy Evaluation Rehab PT IP Evaluation Start: 05/11/23 07:09 Freq: ONCE Status: Active Protocol: Document 05/11/23 11:38 GILDA (Rec: 05/11/23 11:42 GILDA [id number]) Subjective/History History History Pt oriented x 3 on arrival. Pt agreeable to engage in therapy evaluation. Pt admitted or 05/10/23 due to hypoxic respiratory failure. Ms. Banerjee is a 62-year-old female with severe COPD who continues to smoke. She presented to the ER via ambulance due to shortness of air. Normally wears 2 to 3 L at home at baseline. Patient experiencing increased SOB, fatigued, weak since Sunday. Has neighbors that have tested positive for COVID. In the ER she was found to have hypoxia on her baseline oxygen , necessitating 4 L nasal cannula. Subjective Subjective I don't know whats wrong. I just got sick. New diagnosis of cancer in past 12 No months? Rehab PT IP Eval Objective Appearance Patient Behavior Appropriate,Cooperative Patient Orientation Person,Place,Birthday Difficulty following instructions none Speech Pattern Clear,Appropriate Ambulation Patient Able to Ambulate Yes Balance Ability to Arise Able, uses arms to help Sitting Balance Leans or slides in chair Standing Balance Narrow stance w/o support Dynamic Sitting Balance Ability Normal Dynamic Standing Balance Ability Normal Transfers Bed Transfer Ability Supervision/Stand by Chair Transfer Ability Supervision/Stand by Sit to Stand Bed Transfer Ability Supervision/Stand by ROM All Extremities PT ROM Status WFL MMT All Extremities PT MMT WFL Rehab PT IP prob,goals,plan Problems Date of Evaluation: 05/11/23 Discharge Plan PT Discharge Plan PT suggests that patient is a good candidate to DC to home with home health once found medically stable by . Eval Complexity Eval Charge Codes 97452 - High Complexity PHYSICIAN CERTIFICATION: I certify the spe
[2023-05-11 18:08] LABS: ABG Base Excess 8.4 mmol/L (-2.4-2.3); ABG HCO3 34.3 mmhg (22.0-26.0); ABG Oxygen Saturation 94 % (90-100); ABG PH 7.33 mmol/L (7.35-7.45); ABG PO2 69.9 mmhg (80-100); ABG TCO2 36.3 mmhg (23-27)
[2023-05-11 18:11] LABS: ABG PCO2 66.2 mmhg (35.0-45.0); Allen's Test Acceptable; Oxygen 2L %; Source Left Radial
[2023-05-12] VITALS (27 sets, daily range): BP systolic 86–138; BP diastolic 45–91; PULSE 77–100; RESP 16–24; TEMP 36.6–37; O2SAT 92–100; BMI 22.8
--- NOTE | 2023-05-12 05:28 | PC.NURSE ---
Patient has rested well this shift. Kept Bipap on most the night took two breaks to eat a couple ice creams. Vitals have been stable, afebrile. Lung sounds have insp/exp wheezing, no c/o pain or discomfort voiced. To acute changes this shift. Bedside table, water pitcher, personal belongings and bedside table all with in reach.
[2023-05-12 07:16] LABS: Basophils % 0.2 % (0.1-2.0); Hematocrit 39.1 % (37.0-47.0); Lymphocytes # 1.3 K/mm3 (0.7-4.5); Lymphocytes % 23.6 % (10-50); Mean Corpuscular HGB Conc 33.3 g/dL (31.8-35.4); Mean Corpuscular Hemoglobin 29.8 pg (27.0-31.2); Mean Corpuscular Volume 89.7 fl (81-99); Mean Platelet Volume 9.2 fl (7.4-10.4); Monocytes # 0.2 K/mm3 (0.1-1.0); Monocytes % 4.2 % (1.7-9.3); Platelet Count 151 K/mm3 (142-424); Red Blood Count 4.36 M/mm3 (4.20-5.40); White Blood Count 5.6 K/mm3 (4.8-10.8)
[2023-05-12 07:26] LABS: Chloride 95 mmol/L (98-107)
[2023-05-12 07:27] LABS: Potassium 4.2 mmoL/L (3.5-5.1); Sodium 139 mmol/L (136-145)
[2023-05-12 07:29] LABS: Alanine Aminotransferase 16 U/L (12-78); Alkaline Phosphatase 54 U/L (38-126); Aspartate Amino Transferase 19 U/L (14-36); Bilirubin,Total 0.3 mg/dl (0.2-1.3); Blood Urea Nitrogen 25 mg/dl (7-17); Creatinine Clearance Estimated 58 mL/min (50-200); Estimated Glomerular Filt Rate 102 ml/min (>60); GFR (African American) 123 ML/MIN (>60)
[2023-05-12 07:30] LABS: Albumin Level 3.9 g/dl (3.5-5.0); Albumin/Globulin Ratio 1.4 (1.1-1.8); Calcium 8.4 mg/dl (8.4-10.2); Globulin 2.7 g/dL (1.3-3.2); Glucose 140 mg/dl (74-100); Total Protein,Serum 6.6 g/dl (6.3-8.2)
[2023-05-12 07:38] LABS: Anion Gap 6.2 mEq/L (5-15); Carbon Dioxide 42 mmol/L (22.0-30.0)
--- NOTE | 2023-05-12 08:02 | PC.NURSE ---
got pt up with walker and 2 assists to bathroom and back to chair
[2023-05-12 09:29] LABS: ABG Base Excess 13.1 mmol/L (-2.4-2.3); ABG Oxygen Saturation 99 % (90-100); ABG PH 7.39 mmol/L (7.35-7.45); ABG PO2 134.1 mmhg (80-100)
[2023-05-12 09:37] LABS: ABG PCO2 63.8 mmhg (35.0-45.0); Allen's Test Acceptable; Source Right Radial; Vent Rate 24
--- NOTE | 2023-05-12 10:09 | EXP.ACUTE.PN ---
Subjective *Date: 05/12/23 *Time: 12:08 Interval history: Wore BiPAP overnight, off this morning as her blood gas looks a little bit better. Tolerating p.o. intake after removal of BiPAP. Denies any chest pain. States she feels marginally better. No nausea or vomiting today. Afebrile Medical Exam Vital signs and Labs for Last 24 Hours: Vital Signs Temp Pulse Pulse Resp BP Pulse Ox O2 Del Method 05/12/23 08:00 100 H 23 108/79 L 100 BiPAP 05/12/23 08:15 05/12/23 06:45 98 BiPAP 05/12/23 08:20 BiPAP 05/12/23 07:37 97.8 F 05/12/23 06:00 98.2 F 82 20 109/68 L 98 BiPAP 05/12/23 06:15 82 05/12/23 06:15 80 05/12/23 06:15 98 BiPAP 05/12/23 06:15 05/12/23 04:00 89 05/12/23 04:00 89 18 103/64 L 100 BiPAP 05/12/23 03:51 05/12/23 02:00 98.1 F 90 18 130/91 H 96 BiPAP 05/12/23 02:02 86 05/12/23 02:02 86 05/12/23 00:00 BiPAP 05/12/23 00:00 88 05/12/23 00:00 95 H 18 138/88 95 BiPAP 05/11/23 22:00 89 20 111/69 97 BiPAP 05/11/23 21:55 90 05/11/23 21:55 90 05/11/23 21:55 05/11/23 21:39 98.4 F 70 16 118/75 99 Room Air 05/11/23 20:00 102 H 05/11/23 20:00 97.9 F 100 H 22 124/77 92 L BiPAP 05/11/23 18:32 BiPAP 05/11/23 18:00 96 H 24 113/39 L 99 BiPAP 05/11/23 18:16 05/11/23 18:07 93 H 05/11/23 18:07 93 H 05/11/23 18:07 94 L Nasal Cannula 05/11/23 16:00 90 05/11/23 17:00 Nasal Cannula 05/11/23 16:00 93 L BiPAP 05/11/23 17:00 93 L Nasal Cannula 05/11/23 16:00 99 H 20 111/61 93 L BiPAP 05/11/23 16:00 93 L BiPAP 05/11/23 15:36 98.2 F 05/11/23 14:55 BiPAP 05/11/23 14:00 101 H 19 130/93 H 97 BiPAP 05/11/23 13:55 105 H 05/11/23 13:55 106 H 05/11/23 13:55 05/11/23 13:00 BiPAP 05/11/23 12:00 90 05/11/23 11:00 BiPAP 05/11/23 12:00 88 15 119/82 95 BiPAP 05/11/23 11:48 98.9 F 05/11/23 10:15 85 05/11/23 10:15 85 05/11/23 10:15 97 BiPAP 05/11/23 10:15 O2 Flow Rate FiO2 05/12/23 08:00 05/12/23 08:15 45 05/12/23 06:45 45 05/12/23 08:20 05/12/23 07:37 05/12/23 06:00 05/12/23 06:15 05/12/23 06:15 05/12/23 06:15 45 05/12/23 06:15 45 05/12/23 04:00 05/12/23 04:00 05/12/23 03:51 45 05/12/23 02:00 05/12/23 02:02 05/12/23 02:02 05/12/23 00:00 05/12/23 00:00 05/12/23 00:00 05/11/23 22:00 05/11/23 21:55 05/11/23 21:55 05/11/23 21:55 45 05/11/23 21:39 05/11/23 20:00 05/11/23 20:00 05/11/23 18:32 05/11/23 18:00 05/11/23 18:16 45 05/11/23 18:07 05/11/23 18:07 05/11/23 18:07 2 05/11/23 16:00 05/11/23 17:00 2 05/11/23 16:00 05/11/23 17:00 2 05/11/23 16:00 05/11/23 16:00 05/11/23 15:36 05/11/23 14:55 05/11/23 14:00 05/11/23 13:55 05/11/23 13:55 05/11/23 13:55 45 05/11/23 13:00 05/11/23 12:00 05/11/23 11:00 05/11/23 12:00 05/11/23 11:48 05/11/23 10:15 05/11/23 10:15 05/11/23 10:15 45 05/11/23 10:15 45 Intake and Output 05/11/23 05/12/23 05/12/23 23:59 07:59 15:59 Intake Total 60 / 320 140 / 140 Output Total 300 / 600 250 / 550 300 / 550 Balance -240 / -280 -110 / -410 -300 / -410 Intake: Intake, Oral Amount 60 / 300 120 / 120 Intake, Other Amount 20 / 20 Output: Output, Urine Amount 300 / 600 250 / 550 300 / 550 Other: Intake, Other Source Saline Solution Number of Voids 1 Number of Unmeasured Voids 1 1 Weight 56.274 kg 62.312 kg Patient Weight 05/12/23 23:59 Weight 62.312 kg Laboratory Results - last 24 hr 05/11/23 18:00: Specimen Source Left radial, O2 % 2l, ABG pH 7.33 L, ABG pCO2 66.2 H, ABG pO2 69.9 L, ABG HCO3 34.3 H, ABG Total CO
--- NOTE | 2023-05-12 12:10 | PC.NURSE ---
Courtesy Round Rounded on patient. Patient awake and up to bathroom with assistance. Trash emptied . Patient voiced no other needs or want at this time. Call light within reach.
[2023-05-13] VITALS (13 sets, daily range): BP systolic 86–117; BP diastolic 52–69; PULSE 65–126; RESP 16–26; TEMP 36.5–37.3; O2SAT 93–99; BMI 22.1
--- NOTE | 2023-05-13 06:10 | PC.NURSE ---
Pt AOx4, slept through most of shift. VSS, tolerated 2 L NC overnight without any distress. No acute events or issues overnight. Fall precautions implemented and call light within reach. Pt able to call staff nurse icu resource team for assistance to notify of bathroom needs.
[2023-05-13 08:24] LABS: Chloride 97 mmol/L (98-107); Potassium 4.1 mmoL/L (3.5-5.1); Sodium 140 mmol/L (136-145)
[2023-05-13 08:27] LABS: Alanine Aminotransferase 20 U/L (12-78); Albumin Level 4.2 g/dl (3.5-5.0); Albumin/Globulin Ratio 1.6 (1.1-1.8); Alkaline Phosphatase 55 U/L (38-126); Anion Gap 8.1 mEq/L (5-15); Aspartate Amino Transferase 24 U/L (14-36); Bilirubin,Total 0.3 mg/dl (0.2-1.3); Blood Urea Nitrogen 20 mg/dl (7-17); Carbon Dioxide 39 mmol/L (22.0-30.0); Creatinine Clearance Estimated 56 mL/min (50-200); Estimated Glomerular Filt Rate 125 ml/min (>60); GFR (African American) 152 ML/MIN (>60); Globulin 2.6 g/dL (1.3-3.2); Total Protein,Serum 6.8 g/dl (6.3-8.2)
[2023-05-13 08:28] LABS: Calcium 8.5 mg/dl (8.4-10.2); Glucose 195 mg/dl (74-100)
[2023-05-13 08:41] LABS: Basophils % 0.2 % (0.1-2.0); Eosinophils % 0.1 % (0.1-12.0); Hematocrit 39.9 % (37.0-47.0); Hemoglobin 13.3 g/dL (12.2-16.2); Lymphocytes # 1.3 K/mm3 (0.7-4.5); Lymphocytes % 20.7 % (10-50); Mean Corpuscular HGB Conc 33.3 g/dL (31.8-35.4); Mean Corpuscular Hemoglobin 30.1 pg (27.0-31.2); Mean Corpuscular Volume 90.2 fl (81-99); Mean Platelet Volume 9.1 fl (7.4-10.4); Monocytes # 0.2 K/mm3 (0.1-1.0); Monocytes % 3.1 % (1.7-9.3); Neutrophils # 4.9 K/mm3 (1.8-7.8); Neutrophils % 75.9 % (37.0-80.0); Platelet Count 163 K/mm3 (142-424); Red Blood Count 4.42 M/mm3 (4.20-5.40); Red Cell Distribution Width 12.9 % (11.5-17.5); White Blood Count 6.5 K/mm3 (4.8-10.8)
--- NOTE | 2023-05-13 11:34 | EXP.DC.SUM ---
General Admission date:: 05/10/23 Discharge date: 05/13/23 HPI HPI HPI: Ms. Banerjee is a 62-year-old female with severe COPD who continues to smoke. She presented to the ER via ambulance due to shortness of air. Normally wears 2 to 3 L at home at baseline. Has felt more short of breath, fatigued, weak since Sunday. Has neighbors that have tested positive for COVID. In the ER she was found to have hypoxia on her baseline oxygen, necessitating 4 L nasal cannula. Blood gas showed mild hypercapnia. Treated briefly with BiPAP. Denies chest pain. COVID and flu they have. Comprehensive respiratory panel pending. Started on breathing treatments and steroids. Given her acute worsening of symptoms and severity of illness, medicine was consulted for admission. After arriving to the floor, patient is on 4 L nasal cannula oxygen. Additional history obtained. She lives at home with her sister and has home health, who came and noted the patient was satting in the mid 80s on her home oxygen today. Given this, EMS was contacted. EMS noted that the patient was satting well on 3 L nasal cannula in route, up from her baseline of 2 L. On medical record review, the patient has been admitted twice in the last 2 months with concern for respiratory failure. She also had a recent halfway facility stay for rehabilitation prior to being discharged home to the care of her sister. Hospital Course Hospital Course Hospital Course: 62-year-old female with PMHx of COPD on 2 L nasal cannula, HFpEF, generalized anxiety disorder, hiatal hernia, diabetes, and hyperlipidemia brought to the ER by EMS c/o shortness of breath and nausea. She has had a poor appetite for past couple days and worsening shortness of breath. Workup in the ER concerning for acute on chronic hypoxemic respiratory failure. Required BiPAP initially due to hypercapnia. This is improved. Off BiPAP for over 24 hours with stable mentation. Meeting criteria for discharge home to complete antibiotic course. Problems addressed during hospitalization as follows: -Acute on chronic hypercapnic respiratory failure: -COPD exacerbation Pulmonology consulted, appreciate their recommendations. Admitted for respiratory failure. CO2 was found to be elevated and was initiated on BiPAP. Improved over 36 hours of BiPAP usage. Patient has been stable off BiPAP for over 24 hours. Treated with DuoNebs every 4 hours and Pulmicort twice daily. Started on IV steroids. Was treated with broad-spectrum antibiotics. Comprehensive respiratory panel positive for rhino/enterovirus. At this time she is stable on baseline oxygen of 2 L. Will transition to oral antibiotics to complete 5 days of azithromycin and cephalosporin therapy. Transition to prednisone 40 mg daily to complete 5-day course. Recommend follow-up with pulmonology as an outpatient. Recurrent abdominal pain Nausea and vomiting -Lipase within normal range. Continue home GERD treatment. Known hiatal hernia. Nausea and vomiting resolved during admission. Tolerating p.o. intake for over 24 hours prior to discharge home. Continue home regimen for GERD -HFpEF: Continue Jardiance 10mg daily, metoprolol 12.5 mg daily, Lipitor 10 mg nightly -anxiety and depression disorder: on clonazepam and sertraline. States comfort going home with her sister at this time. PT and OT evaluated, recommend returning home with home health. Discussed patient's progress with her sister on day of discharge. Spent 30 minutes in discharge counseling, documentation, and direct care with patient. Exam Data for Last 24 hours Vital signs and Labs for Last 24 Hours: Temp Pulse Resp BP Pulse Ox O2 Del Method O2 Flow Rate 99.1 F 89 17 117/69 99 Nasal Cannula 2 05/13/23 08:00 05/13/23 10:15 05/13/23 10:00 05/13/23 10:00 05/13/23 10:15 05/13/23 11:00 05/13/23 11:00 FiO2 45 05/12/23 08:15 Laboratory Results - last 24 hr 05/13/23 07:35: WBC 6.5, RBC 4.4
--- NOTE | 2023-05-13 14:30 | PC.NURSE ---
removed 20G PIV right forearm, SRNA Tom taking pt via wheelchair to front loop
--- NOTE | 2023-05-14 07:35 | SW/DCPLANNER ---
Patient information/order has been faxed to [facility] to resume services.
--- NOTE | 2023-05-14 15:46 | CARE MANAGER ---
Called and spoke with patient regarding recent discharge. She states that she is not doing well, and is waiting for her new medication to be brought by a friend. She stated that she had no way of picking up yesterday after discharge. I explained Meds to Bed and she states that she will inquire about that at next admission.
== END 2023-05-13 14:31 | disposition home health service (06) | DRG 189 ==
LOC: ER 14:33 → 2ND 15:07
PROVIDERS: Internal Medicine Pulmonary Disease; Admitting Provider Internal Medicine Adolescent Medicine; Emergency Provider Emergency Medicine; PCP Internal Medicine; Visit Provider Internal Medicine Adolescent Medicine
DX: J96.21 Acute and chronic respiratory failure with hypoxia (principal); J44.1 Chronic obstructive pulmonary disease with (acute) exacerbation; I50.32 Chronic diastolic (congestive) heart failure; J96.22 Acute and chronic respiratory failure with hypercapnia; R10.9 Unspecified abdominal pain; K21.9 Gastro-esophageal reflux disease without esophagitis; E78.5 Hyperlipidemia, unspecified; F41.1 Generalized anxiety disorder; F32.A Depression, unspecified; E11.69 Type 2 diabetes mellitus with other specified complication; Z99.81 Dependence on supplemental oxygen; F41.9 Anxiety disorder, unspecified; Z79.84 Long term (current) use of oral hypoglycemic drugs; Z87.891 Personal history of nicotine dependence; R11.2 Nausea with vomiting, unspecified
CPT/HCPCS: 36415; 71045; 80053; 81001; 82803; 83605; 83690; 83735; 83880; 84436; 84443; 84484; 85025; 87040; 87632; 87635; 87636; 93005; 94640; 94660; 94760; 94761; 97163; 97165; 99291; J0131; J0456; J0696; J2405

== ENCOUNTER 2023-08-11 10:46 | Inpatient (IN) | payer OTHER, MEDICARE, SELFPAY ==
[2023-08-11] VITALS (37 sets, daily range): BP systolic 102–188; BP diastolic 68–134; PULSE 123–162; RESP 16–28; TEMP 36.7–38.8; O2SAT 93–100; BMI 22.8; BMI 23.2
--- NOTE | 2023-08-11 10:49 | ECG_ITS ---
APPROVED REPORT Exam: Resting ECG HR:159 bpm ECG Measurements Heart Rate 159 AXES QRSd 102 QRS 95 QT 302 T 80 QTc 391 Conclusion TACHYCARDIA BORDERLINE RIGHT AXIS DEVIATION [QRS AXIS > 90] NONSPECIFIC ST & T-WAVE ABNORMALITY Electronically signed by : FRANC LOVE, 08/11/2023 17:21:14
[2023-08-11 10:56] LABS: VBG Base Excess 0.7 mmol/L (-2.4-2.3); VBG HCO3 29.3 mmol/L (23-30); VBG Oxygen Saturation 99.2 % (50-70); VBG PO2 181.5 mmol/L (28-40); VBG Total CO2 31.8 mmol/L (23-27)
[2023-08-11 10:58] LABS: Lactate Venous 3.7 mmol/L (0.4-2.0); VBG PCO2 82.5 mmol/L (35-51); VBG PH 7.17 mmol/L (7.31-7.41)
--- NOTE | 2023-08-11 11:07 | CT_ITS ---
FINAL REPORT TECHNIQUE: Thin section axial images were obtained through the neck and head after contrast administration per CT angiogram protocol. Multiplanar reconstruction images were obtained from the axial data. Exam was performed using dose reduction technique. CLINICAL HISTORY: ams FINDINGS: CTA NECK: Aortic arch: There is a normal three-vessel configuration to the aortic arch. There is no significant stenosis of the great vessels at their origins. Right carotid artery: The right common carotid artery is patent without stenosis. There is a small amount of calcified plaque at the right carotid bulb. There is no stenosis. The remainder of the right internal carotid artery is patent to the skull base. Left carotid artery: The left common carotid artery is patent without stenosis. There is no stenosis of the left internal carotid artery. There is a very small amount of calcified plaque at the left carotid bulb. Vertebral arteries: The vertebral arteries are patent. Other soft tissues: Limited imaging of the lung apices reveals emphysema. There is a spiculated nodular density at the right apex.. CTA HEAD: The intracerebral portions of the carotid arteries are patent. The intracerebral vasculature is patent without large vessel occlusion or significant stenosis. There is no evidence of AVM. IMPRESSION: CTA NECK: No evidence of carotid stenosis. Patent vertebral arteries. Abnormality in the right lung apex. Please see the report for the CT chest. CTA HEAD: Patent intracerebral vasculature without evidence of large vessel occlusion or significant stenosis. Authenticated and ERN
--- NOTE | 2023-08-11 11:07 | CT_ITS ---
FINAL REPORT TECHNIQUE: Axial imaging of the chest is obtained after the administration of contrast. 3-D MIP reformatted images were also obtained and reviewed per PE protocol. CLINICAL HISTORY: soa, tachycardia COMPARISON: 03/20/2023 FINDINGS: The pulmonary arteries are well filled. There is no evidence of pulmonary embolus. There is no aortic dissection or intimal flap. There is no axillary lymphadenopathy. There is new mediastinal and hilar lymphadenopathy. An AP window lymph node measures 15 mm. A subcarinal lymph node measures 26 mm. A more inferior, also new subcarinal lymph node measures 40 mm.. There are new bilateral patchy groundglass and airspace opacities. There are new small nodular and reticulonodular opacities at the lung bases. Findings are most consistent with new pneumonia. Atypical organisms should be considered. An irregular nodule at the right apex measures 21 mm and was 19 mm. Underlying emphysema is noted.. There is no pleural or pericardial effusion. Limited evaluation of the upper abdomen reveals a small hypodense lesion in the dome of the liver, likely a cyst. The liver is fatty infiltrated. No acute osseous abnormality. IMPRESSION: 1. No evidence of pulmonary embolus or aortic dissection. 2. New bilateral patchy mixed density opacities with small nodules and reticulonodular opacities. Findings are favored to represent an infectious or inflammatory process. Atypical organisms should be considered. Recommend follow-up exam in 2-3 months to ensure resolution. 3. New lymphadenopathy which may be reactive. Neoplasm not excluded. This can also be reevaluated at short follow-up. 4. Stable irregular nodular density in the right lung apex. Authenticated and ERN
--- NOTE | 2023-08-11 11:07 | CT_ITS ---
FINAL REPORT TECHNIQUE: Thin section axial images were obtained from skull base to vertex without contrast. Coronal reconstruction images were obtained from the axial data. Exam was performed using dose reduction technique. CLINICAL HISTORY: ams COMPARISON: 07/12/2022 FINDINGS: Exam quality is degraded by motion artifact and patient position in the gantry.. There is no mass effect or midline shift. There is no hydrocephalus. There is no intracranial hemorrhage. The posterior fossa is without acute abnormality. The basilar cisterns are preserved. The soft tissues are without acute abnormality. No acute osseous abnormality is identified. IMPRESSION: Limited by motion. No acute intracranial abnormality within the limitations of the exam. Authenticated and ERN
[2023-08-11] MEDS: propofoL 100 ML 8.5 MG IV (11:10)
--- NOTE | 2023-08-11 11:12 | XR_ITS ---
FINAL REPORT CLINICAL HISTORY: ET TUBE COMPARISON: 05/10/2023 FINDINGS: A portable view of the chest was obtained. ET tube is present at the level of the clavicles. Cardiac and mediastinal silhouettes are within normal limits. There are patchy bilateral opacities which may represent pneumonia. There is no pleural effusion or pneumothorax. IMPRESSION: ET tube at the level of the clavicles. Bilateral opacities may represent pneumonia. Reviewed, Interpreted and Dictated by Jennifer Fry MD Transcribed by Jennifer Sims Authenticated and [facility]
--- NOTE | 2023-08-11 11:12 | XR_ITS ---
FINAL REPORT CLINICAL HISTORY: ET TUBE ADVANCE FINDINGS: A portable view of the chest was obtained almost immediately following previous. The ET tube has been advanced slightly but is still at the level of the clavicles 7 cm above the magan. Cardiac and mediastinal silhouettes are stable. There has been no change in the bilateral opacities.. There is no pneumothorax. IMPRESSION: ET tube 7 cm above the magan. Otherwise stable exam. Reviewed, Interpreted and Dictated by Magan Fry MD Transcribed by Jennifer Sims Authenticated and [facility]
--- NOTE | 2023-08-11 11:19 | PC.NURSE ---
patient gone to CT at this time.
[2023-08-11 11:23] LABS: Basophils # 0.3 K/mm3 (0-0.2); Basophils % 1.1 % (0.1-2.0); Eosinophils # 0.1 K/mm3 (0.0-0.4); Eosinophils % 0.2 % (0.1-12.0); Hematocrit 42.3 % (37.0-47.0); Hemoglobin 12.6 g/dL (12.2-16.2); Lymphocytes # 2.4 K/mm3 (0.7-4.5); Lymphocytes % 9.4 % (10-50); Mean Corpuscular HGB Conc 29.8 g/dL (31.8-35.4); Mean Corpuscular Hemoglobin 29.3 pg (27.0-31.2); Mean Corpuscular Volume 98.3 fl (81-99); Mean Platelet Volume 9.2 fl (7.4-10.4); Monocytes # 2.6 K/mm3 (0.1-1.0); Monocytes % 10.1 % (1.7-9.3); Neutrophils # 20.6 K/mm3 (1.8-7.8); Neutrophils % 79.1 % (37.0-80.0); Platelet Count 273 K/mm3 (142-424)
[2023-08-11 11:31] LABS: MANUAL DIFFERENTIAL MANUAL DIFFERENTIAL (MANUAL DIFF)
[2023-08-11] MEDS: IOPAMIDOL-370 (76%);100ML BOTTLE 200 ML IV (11:37)
[2023-08-11] MEDS: 0.9 % SODIUM CHLORIDE 50 ML VIAL 100 ML IV (11:37)
[2023-08-11] MEDS: SODIUM CHLORIDE 0.9% 10ML SYR (RAD ONLY) 10 ML IV (11:38)
[2023-08-11] MEDS: FENTANYL CITRATE/PF 1,000 MCG in 0.9 % SODIUM CHLORIDE 80 ML 7.5 MCG IV (11:40)
[2023-08-11 11:44] LABS: Chloride 104 mmol/L (98-107); Sodium 146 mmol/L (136-145)
[2023-08-11 11:45] LABS: Potassium 3.1 mmoL/L (3.5-5.1)
--- NOTE | 2023-08-11 11:45 | PC.NURSE ---
Pt back from CT
[2023-08-11 11:47] LABS: Alanine Aminotransferase 28 U/L (12-78); Albumin Level 3.9 g/dl (3.5-5.0); Albumin/Globulin Ratio 1.3 (1.1-1.8); Alkaline Phosphatase 121 U/L (38-126); Anion Gap 12.1 mEq/L (5-15); Aspartate Amino Transferase 42 U/L (14-36); Bilirubin,Total 0.5 mg/dl (0.2-1.3); Blood Urea Nitrogen 20 mg/dl (7-17); Carbon Dioxide 33 mmol/L (22.0-30.0); Estimated Glomerular Filt Rate 102 ml/min (>60); GFR (African American) 123 ML/MIN (>60); Globulin 3.1 g/dL (1.3-3.2); Glucose 156 mg/dl (74-100); Magnesium 1.9 mg/dl (1.6-2.3); Phosphorous 4.3 mg/dl (2.5-4.5)
[2023-08-11 11:48] LABS: INR 1.12 (0.9-1.1)
[2023-08-11] MEDS: FENTANYL 12.5MCG/0.25ML 12.5 MCG IV (11:49)
[2023-08-11 11:51] LABS: Ethyl Alcohol < 10 mg/dl (0-10)
--- NOTE | 2023-08-11 11:52 | PC.NURSE ---
1042- Patient arrival to emergency room, bag valve mask in place, IV in right hand and left ac provided by EMS. BS 180. 1059- Etomidate 20mg given IV push; 1100- Succ 75mg given IV push and 3rd IV obtained in Right ac. Patient intubated at 1101 with 7.5 ET tube 20 at the gum. 18 fr OG placed at 55 at the gum. Proprofol started at 22mcg. 50 of fentanyl given IV push at 1114. Patient then went to ct scan. Upon arrival back from CT scan 16fr temp sensing pastor catheter inserted without difficulty and Fentanyl drip started at 75mcg. At 1149 second IV push of 12.5 of Fentanyl given.
--- NOTE | 2023-08-11 12:01 | ED_ITS ---
Discharge Plan Disposition Patient Disposition: Admitted Clinical Impressions Clinical Impression: Acute respiratory failure, Pneumonia Discharge ED Provider: Nathen Mayberry Adult HPI General Chief complaint: Weakness Stated complaint: unresponsive Time Seen by Provider: 08/11/23 11:07 Mode of Arrival: EMS Source of Information: EMS Limitations: No Limitations Description of Symptoms (Recalled from ER Triage Doc. by RN): Per EMS patient was unresponsive except for painful stimuli upon arrival at the scene. Patient was immediately loaded up and they began bagging her. Upon arrival to the ER patient remaind unresponsive. History of Present Illness HPI narrative: Patient presents with hypoxemia, altered mental status, arrives from home, per phone conversation with daughter okay to intubate, history of COPD, no known trauma, last known normal unknown, previous therapies include supplemental oxygen via [id number]. Fingerstick blood sugar prior to arrival with hyperglycemia. Additional history unable to be obtained secondary to acuity of condition, altered mental status. Please note that above description of symptoms, in this electronic medical record under categorization of recalled from ER triage doctor by RN are reflective of an initial nursing assessment, however, is not reflective of my full history and physical exam that was personally taken and clarified. Consequentially, this preceding description of symptoms, which may include the patient's categorized chief complaint in the EMR, do not reflect my personal clinical impression, and the ultimate description of history of present illness and patient stated complaints should be deferred to this section of the note. Unless stated otherwise or congruent with this section of the note, additional signs, symptoms, or incongruence should be interpreted as inaccurate with my clinical impression. Related Data Home Medications Medication Instructions Recorded Confirmed montelukast 10 mg tablet 10 mg PO PM Allergy symptoms 12/04/21 08/11/23 empagliflozin 10 mg tablet 10 mg PO DAILY Heart Failure 03/20/23 08/11/23 (Jardiance) sertraline 100 mg tablet 100 mg PO DAILY Mood 03/20/23 08/11/23 atorvastatin 10 mg tablet (Lipitor) 10 mg PO HS Cholesterol 04/16/23 08/11/23 pantoprazole 40 mg tablet,delayed 40 mg PO DAILY Acid Reflux 04/16/23 08/11/23 release fluticasone fur. 100 mcg-umeclid 1 inh inhalation DAILY Breathing 05/10/23 08/11/23 62.5 mcg-vilant 25 mcg Problems inhalat.powder (Trelegy Ellipta) magnesium oxide 400 mg (241.3 mg 400 mg PO BID Supplement 05/10/23 08/11/23 magnesium) tablet clonazepam 0.25 mg disintegrating 0.25 mg PO TID Anxiety 08/11/23 08/11/23 tablet fexofenadine 180 mg tablet 180 mg PO DAILY Allergy Symptoms 08/11/23 08/11/23 ipratropium 0.5 mg-albuterol 3 mg 3 ml inhalation Q4H Breathing 08/11/23 08/11/23 (2.5 mg base)/3 mL nebulization Problems soln metformin 500 mg tablet 500 mg PO DAILY Diabetes 08/11/23 08/11/23 metoprolol tartrate 25 mg tablet 12.5 mg PO BID High Blood Pressure 08/11/23 08/11/23 Previous Rx's Medication Instructions Recorded tizanidine 4 mg capsule 6 mg (1.5 x 4 mg) PO TID muscle 05/03/23 spasms 30 days #135 caps blood-glucose meter #1 ea 05/15/23 gabapentin 800 mg tablet 800 mg PO TID Pain 30 days #90 tabs 07/02/23 Allergies Allergy/AdvReac Type Severity Reaction Status Date / Time hydrocodone Allergy Severe cant breath Verified 08/11/23 16:29 [From Antonino (hydrocodone-acetamin)] Penicillins Allergy Unknown Unknown Verified 08/11/23 16:29 allergy reaction [facility] Disclaimer: The information contained in this section may have been updated after the patient was seen, as this information can be updated by other users. 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 She was more than happy to taper this to off. Will go to 0.025 mg twice a day for 7 days then 0.25 mg once a day for 7 days and then stop. She is taking sertraline 100 mg/day and states this helps with her anxiety. GERD (gastroesophageal reflux disease) Hypertension Suicidal thoughts Surgical History History of cholecystectomy History of colonoscopy History of esophagogastroduodenoscopy History of hysterectomy Family History Mother Cancer Father Pancreatic cancer Social History (Updated 08/11/23 @ 16:59 by Lori Carvalho RN) Smoking Status: Former smoker tobacco type: cigarettes packs per day: 0 how long ago did patient quit smokin years second hand exposure: Yes alcohol intake: never substance use type: denies use current occupational status: disabled Travel in the last 8 weeks: None household members: family housing: house number of children: 1 caffeine: Yes ROS Obtained: Yes Systems reviewed as appropriate & no additional complaints except as documented As per HPI Physical Exam General General appearance: alert and obtunded Head Head exam: atraumatic and normocephalic Eye Eye exam: Present normal appearance Neck Neck exam: Present normal inspection Chest Chest inspection: Present normal inspection and symmetric chest wall rise Respiratory Respiratory exam: Present respiratory distress, wheezes and prolonged expiratory phase Cardiovascular Cardiovascular exam: Present normal rhythm and tachycardia Abdominal Exam Abdominal exam: Present soft Neurological Exam Neurological exam: Present other (Unresponsive, withdraws to pain in left lower extremity) Psychiatric Psychiatric exam: Present normal affect and normal mood Skin Skin exam: Present warm and dry Medical Decision Making Medical Records Medical records reviewed: Yes I reviewed the patient's medical records. Patel Inquiry Pt receiving controlled substance: No Vital Signs: 08/11/23 10:46 08/11/23 10:59 08/11/23 11:30 Temperature 98.1 F Temperature Source Axillary Pulse Rate 156 H Pulse Rate [Radial] 150 H Respiratory Rate 28 H 28 H 22 Blood Pressure 128/75 Blood Pressure [Right Arm] 110/79 Blood Pressure Mean 87 Blood Pressure Mean [Right Arm] 89 Blood Pressure Source Blood Pressure Source [Right Arm] Automatic Cuff Blood Pressure Position Blood Pressure Position [Right Arm] Supine 02 Sat by Pulse Oximetry 99 97 100 Oxygen Delivery Method Ambu-Bag 08/11/23 11:44 08/11/23 11:49 08/11/23 11:50 Temperature Temperature Source Pulse Rate 144 H 145 H 144 H Pulse Rate [Radial] Respiratory Rate 21 21 Blood Pressure 132/68 135/102 H 148/127 H Blood Pressure [Right Arm] Blood Pressure Mean 106 Blood Pressure Mean [Right Arm] Blood Pressure Source Blood Pressure Source [Right Arm] Blood Pressure Position Blood Pressure Position [Right Arm] 02 Sat by Pulse Oximetry 100 99 100 Oxygen Delivery Method Mechanical Ventilation Mechanical Ventilation Mechanical Ventilation 08/11/23 11:52 08/11/23 11:56 08/11/23 12:00 Temperature 99.0 F Temperature Source Pulse Rate 143 H 162 H 141 H Pulse Rate [Radial] Respiratory Rate 21 23 21 Blood Pressure 161/134 H 133/91 H 136/95 H Blood Pressure [Right Arm] Blood Pressure Mean Blood Pressure Mean [Right Arm] Blood Pressure Source Blood Pressure Source [Right Arm] Blood Pressure Position Blood Pressure Position [Right Arm] 02 Sat by Pulse Oximetry 99 100 100 Oxygen Delivery Method Mechanical Ventilation Mechanical Ventilation Mechanical Ventilation 08/11/23 12:05 08/11/23 12:08 08/11/23 12:10 Temperature 99.1 F 98.4 F 99.3 F Temperature Source Pulse Rate 136 H 145 H 142 H Pulse Rate [Radial] Respiratory Rate 21 21 21 Blood Pressure 132/97 H 143/93 H 128/96 H Blood Pressure [Right Arm] Blood Pressure Mean Blood Pressure Mean [Right Arm] Blood Pressure Source Blood Pressure Source [Right Arm] Blood Pressure Position Blood Pressure Position [Right Arm] 02 Sat by Pulse Oximetry 100 100 99 Oxygen Delivery Method Mechanical Ventilation Mechanical Ventilation Mechanical Ventilation 08/11/23 12:15 08/11/23 12:20 08/11/23 12:30 Temperature 99.5 F 99.5 F Temperature Source Pulse Rate 142 H 144 H 140 H Pulse Rate [Radial] Respiratory Rate 22 22 22 Blood Pressure 131/91 H 126/90 117/87 Blood Pressure [Right Arm] Blood Pressure Mean 94 Blood Pressure Mean [Right Arm] Blood Pressure Source Blood Pressure Source [Right Arm] Blood Pressure Position Blood Pressure Position [Right Arm] 02 Sat by Pulse Oximetry 100 100 100 Oxygen Delivery Method Mechanical Ventilation Mechanical Ventilation Mechanical Ventilation 08/11/23 13:00 08/11/23 13:15 08/11/23 13:20 Temperature 100.4 F H 100.4 F H Temperature Source Pulse Rate 144 H 146 H 146 H Pulse Rate [Radial] Respiratory Rate 20 20 20 Blood Pressure 119/87 117/84 127/83 Blood Pressure [Right Arm] Blood Pressure Mean 93 Blood Pressure Mean [Right Arm] Blood Pressure Source Blood Pressure Source [Right Arm] Blood Pressure Position Blood Pressure Position [Right Arm] 02 Sat by Pulse Oximetry 97 94 L 93 L Oxygen Delivery Method Mechanical Ventilation Mechanical Ventilation Mechanical Ventilation 08/11/23 13:50 Temperature 100.4 F H Temperature Source Core Pulse Rate 146 H Pulse Rate [Radial] Respiratory Rate 20 Blood Pressure 127/83 Blood Pressure [Right Arm] Blood Pressure Mean Blood Pressure Mean [Right Arm] Blood Pressure Source Automatic Cuff Blood Pressure Source [Right Arm] Blood Pressure Position Supine Blood Pressure Position [Right Arm] 02 Sat by Pulse Oximetry Oxygen Delivery Method Mechanical Ventilation Lab Data Lab Results 08/11/23 10:53: WBC 26.0 H*, RBC 4.30, Hgb 12.6, Hct 42.3, MCV 98.3, MCH 29.3, M CHC 29.8 L, RDW 13.0, Plt Count 273, MPV 9.2, Neut % (Auto) 79.1, Lymph % (Auto) 9.4 L, Hudson % (Auto) 10.1 H, Eos % (Auto) 0.2, Baso % (Auto) 1.1, Neut # (Auto) 20.6 H, Lymph # (Auto) 2.4, Hudson # (Auto) 2.6 H, Eos # (Auto) 0.1, Baso # (Auto) 0.3 H, Total Counted 100, Neutrophils % (Manual) 76, Band Neutrophils % 2.0, Lymphocytes % (Manual) 12, Monocytes % (Manual) 10 H, Platelet Estimate Normal, Hypochromasia 1+, PT 12.0, INR 1.12 H, VBG pH 7.17 L, VBG pCO2 82.5 H, VBG pO2 181.5 H, VBG HCO3 29.3, VBG Total CO2 31.8 H, VBG O2 Saturation 99.2 H, VBG Base Excess 0.7, VBG Lactic Acid 3.7 H, Sodium 146 H, Potassium 3.1 L, Chloride 104, Carbon Dioxide 33 H, Anion Gap 12.1, BUN 20 H, Creatinine 0.60, Estimated GFR 102, Est GFR ( Amer) 123, Glucose 156 H, Calcium 10.0, Phosphorus 4.3, Magnesium 1.9, Total Bilirubin 0.5, AST 42 H, ALT 28, Alkaline Phosphatase 121, Total Protein 7.0, Albumin 3.9, Globulin 3.1, Albumin/Globulin Ratio 1.3, Plasma/Serum Alcohol < 10 08/11/23 11:45: Urine Opiates Screen Positive H, Urine Methadone Screen Negative, Ur Barbituates Screen Negative, Ur Phencyclidine Scrn Negative, Ur Amphetamines Screen Negative, U Benzodiazepines Scrn Negative, Urine Cocaine Screen Negative, U Marijuana (THC) Screen Negative 08/11/23 12:33: Specimen Source Right radial, O2 % 60, ABG pH 7.36, ABG pCO2 49.3 H, ABG pO2 190.7 H, ABG HCO3 27.3 H, ABG Total CO2 28.8 H, ABG O2 Saturation 100, ABG Base Excess 1.9, Jay Test Acceptable, ABG Lactate 2.2 H, Vent Rate 22, Tidal Volume 420, PEEP 8 08/11/23 10:53 08/11/23 10:53 Orders (Tests/Meds): ED MEDICATIONS Generic Name Dose Route Start Last Admin Trade Name Freq PRN Reason Stop Dose Admin Acetaminophen 650 mg 08/11/23 15:02 08/11/23 16:04 Acetaminophen 325mg Tab PO 09/10/23 15:01 650 mg Q4HP PRN Administration Fever or Mild Pain (1-3) Albuterol/Ipratropium 3 ml 08/11/23 18:00 Ipratropium/Albuterol 3 Ml [facility] 09/10/23 17:59 Q4RT [facility] Budesonide 0.5 mg 08/11/23 18:00 Budesonide 0.5mg/2ml [facility] 09/10/23 17:59 BIDRT [facility] Fentanyl Citrate 12.5 mcg 08/11/23 11:16 08/11/23 11:49 Fentanyl 12.5mcg/0.25ml IV 09/10/23 11:15 12.5 mcg [id number] PRN Administration Achieve CPOT Score <3 Heparin Sodium (Porcine) 5,000 unit 08/11/23 15:15 08/11/23 16:01 Heparin Sodium 5,000 Unit/Ml Vial SQ 09/10/23 15:14 5,000 unit Q8H KENNY Administration Fentanyl Citrate 1,000 mcg/ 100 mls @ 2.5 mls/hr 08/11/23 11:30 08/11/23 16:38 Sodium Chloride IV 09/10/23 11:29 15 mcg/hr .Q24H KENNY 1.5 mls/hr Titration Protocol 25 MCG/HR Piperacillin Sod/Tazobactam 100 mls @ 200 mls/hr 08/11/23 11:30 08/11/23 13:01 Sod 4.5 gm/ Sodium Chloride IV 08/21/23 11:29 200 mls/hr Q12H KENNY Administration Propofol 100 mls @ 1.932 mls/hr 08/11/23 12:15 08/11/23 16:38 Diprivan 10mg/Ml 100ml Bottle IV 09/10/23 12:14 15 mcg/kg/min .Q24H KENNY 5.8 mls/hr Titration Protocol 5 MCG/KG/MIN Cefepime HCl 2 gm/ Sodium 100 mls @ 200 mls/hr 08/11/23 15:15 08/11/23 16:02 Chloride IV 08/21/23 15:14 200 mls/hr Q8H KENNY Administration Vancomycin/PEG/NADA/Lysine/Water 1.25 gm in 250 mls @ 125 mls/hr 08/11/23 16:30 Vancomycin 1.25gm/250ml (Peg) Premix IV 08/11/23 18:29 ONCE ONE Vancomycin/PEG/NADA/Lysine/Water 1.25 gm in 250 mls @ 125 mls/hr 08/12/23 13:00 Vancomycin 1.25gm/250ml (Peg) Premix IV 08/22/23 12:59 Q18H KENNY Methylprednisolone Sodium Succinate 60 mg 08/11/23 16:00 08/11/23 16:03 Methylprednisolone Sod Succ 125mg Vial IV 09/10/23 15:59 60 mg Q8H KENNY Administration Miscellaneous 1 each 08/11/23 15:15 08/11/23 16:22 Vancomycin Consult Request NOTAPPLIC 09/10/23 15:14 1 each CONSULT PHARMACY KENNY Administration Ondansetron HCl 4 mg 08/11/23 15:02 Ondansetron 4mg/2ml Vial IV 09/10/23 15:01 Q8HP PRN Nausea Sodium Chloride 10 ml 08/11/23 11:35 08/11/23 11:38 Sodium Chloride 0.9% 10ml Syr (Rad Only) IV 09/10/23 11:34 10 ml NEEDED PRN Administration Maintain IV Site Discontinued Medications Generic Name Dose Route Start Last Admin Trade Name Freq PRN Reason Stop Dose Admin Albuterol/Ipratropium 3 ml 08/11/23 18:00 Ipratropium/Albuterol 3 Ml Neb IH 09/10/23 17:59 Q4RT KENNY Lactated Ringer's 1,000 mls @ 999 mls/hr 08/11/23 11:07 08/11/23 12:11 Lactated Ringer's 1000 Ml Bag IV 08/11/23 12:07 999 mls/hr .Q1H1M ONE Administration Iopamidol 200 ml 08/11/23 11:35 08/11/23 11:37 Iopamidol-370 (76%);100ml Bottle IV 08/11/23 11:36 200 ml ONCE ONE Administration Methylprednisolone Sodium Succinate 125 mg 08/11/23 11:30 08/11/23 12:48 Methylprednisolone Sod Succ 125mg Vial IV 08/11/23 11:31 125 mg ONCE ONE Administration Sodium Chloride 100 ml 08/11/23 11:35 08/11/23 11:37 0.9 % Sodium Chloride 50 Ml Vial IV 08/11/23 11:36 100 ml ONCE ONE Administration ORDERS Category Date Time Status CT angio head Stat Cat Scan 08/11/23 11:[address] angio neck Stat Cat Scan 08/11/23 11:[address] head/brain wo con Stat Cat Scan 08/11/23 11:07 Completed CTA Chest [CT angio chest PE protocol] Stat Cat Scan 08/11/23 11:07 Completed XR chest portable Stat Exams 08/11/23 11:12 Completed XR chest portable Stat Exams 08/11/23 11:12 Completed CBC w/Auto Diff [Complete Blood Count Auto Diff] Stat Lab 08/11/23 10:53 Completed CMP [Comprehensive Metabolic Panel] Stat Lab 08/11/23 10:53 Completed Drug Screen,Urine Stat Lab 08/11/23 11:45 Completed Ethanol [Ethyl Alcohol] Stat Lab 08/11/23 10:53 Completed MAG [Magnesium] Stat Lab 08/11/23 10:53 Completed PHOS [Phosphorous] Stat Lab 08/11/23 10:53 Completed PT INR [Prothrombin Time INR] Stat Lab 08/11/23 10:53 Completed Blood Culture Stat Micro 08/11/23 11:58 Received ABG [Arterial Blood Gas] Stat RT 08/11/23 12:33 Completed Lactate Arterial Routine RT 08/11/23 12:33 Completed VBG [Venous Blood Gas] Stat RT 08/11/23 10:53 Completed Medical Decision Narrative: Patient with history and exam per above presenting for evaluation of hypoxemia, altered mental status Diagnoses considered include intracranial hemorrhage, respiratory failure, stroke, electrolyte abnormality, hypoglycemia, hypovolemia, acute kidney injury, among others Patient was emergently intubated shortly following arrival due to inability to protect airway ED workup and treatment included: ED MEDICATIONS Generic Name Dose Route Start Last Admin Trade Name Freq PRN Reason Stop Dose Admin Acetaminophen 650 mg 08/11/23 15:02 08/11/23 16:04 Acetaminophen 325mg Tab PO 09/10/23 15:01 650 mg Q4HP PRN Administration Fever or Mild Pain (1-3) Albuterol/Ipratropium 3 ml 08/11/23 18:00 Ipratropium/Albuterol 3 Ml [facility] 09/10/23 17:59 Q4RT KENNY Budesonide 0.5 mg 08/11/23 18:00 Budesonide 0.5mg/2ml Neb 09/10/23 17:59 BIDRT KENNY Fentanyl Citrate 12.5 mcg 08/11/23 11:16 08/11/23 11:49 Fentanyl 12.5mcg/0.25ml IV 09/10/23 11:15 12.5 mcg [id number] PRN Administration Achieve CPOT Score <3 Heparin Sodium (Porcine) 5,000 unit 08/11/23 15:15 08/11/23 16:01 Heparin Sodium 5,000 Unit/Ml Vial SQ 09/10/23 15:14 5,000 unit Q8H KENNY Administration Fentanyl Citrate 1,000 mcg/ 100 mls @ 2.5 mls/hr 08/11/23 11:30 08/11/23 16:38 Sodium Chloride IV 09/10/23 11:29 15 mcg/hr .Q24H KENNY 1.5 mls/hr Titration Protocol 25 MCG/HR Piperacillin Sod/Tazobactam 100 mls @ 200 mls/hr 08/11/23 11:30 08/11/23 13:01 Sod 4.5 gm/ Sodium Chloride IV 08/21/23 11:29 200 mls/hr Q12H KENNY Administration Propofol 100 mls @ 1.932 mls/hr 08/11/23 12:15 08/11/23 16:38 Diprivan 10mg/Ml 100ml Bottle IV 09/10/23 12:14 15 mcg/kg/min .Q24H KENNY 5.8 mls/hr Titration Protocol 5 MCG/KG/MIN Cefepime HCl 2 gm/ Sodium 100 mls @ 200 mls/hr 08/11/23 15:15 08/11/23 16:02 Chloride IV 08/21/23 15:14 200 mls/hr Q8H KENNY Administration Vancomycin/PEG/NADA/Lysine/Water 1.25 gm in 250 mls @ 125 mls/hr 08/11/23 16:30 Vancomycin 1.25gm/250ml (Peg) Premix IV 08/11/23 18:29 ONCE ONE Vancomycin/PEG/NADA/Lysine/Water 1.25 gm in 250 mls @ 125 mls/hr 08/12/23 13:00 Vancomycin 1.25gm/250ml (Peg) Premix IV 08/22/23 12:59 Q18H KENNY Methylprednisolone Sodium Succinate 60 mg 08/11/23 16:00 08/11/23 16:03 Methylprednisolone Sod Succ 125mg Vial IV 09/10/23 15:59 60 mg Q8H KENNY Administration Miscellaneous 1 each 08/11/23 15:15 08/11/23 16:22 Vancomycin Consult Request NOTAPPLIC 09/10/23 15:14 1 each CONSULT PHARMACY KENNY Administration Ondansetron HCl 4 mg 08/11/23 15:02 Ondansetron 4mg/2ml Vial IV 09/10/23 15:01 Q8HP PRN Nausea Sodium Chloride 10 ml 08/11/23 11:35 08/11/23 11:38 Sodium Chloride 0.9% 10ml Syr (Rad Only) IV 09/10/23 11:34 10 ml NEEDED PRN Administration Maintain IV Site Discontinued Medications Generic Name Dose Route Start Last Admin Trade Name Freq PRN Reason Stop Dose Admin Albuterol/Ipratropium 3 ml 08/11/23 18:00 Ipratropium/Albuterol 3 Ml Neb IH 09/10/23 17:59 Q4RT KENNY Lactated Ringer's 1,000 mls @ 999 mls/hr 08/11/23 11:07 08/11/23 12:11 Lactated Ringer's 1000 Ml Bag IV 08/11/23 12:07 999 mls/hr .Q1H1M ONE Administration Iopamidol 200 ml 08/11/23 11:35 08/11/23 11:37 Iopamidol-370 (76%);100ml Bottle IV 08/11/23 11:36 200 ml ONCE ONE Administration Methylprednisolone Sodium Succinate 125 mg 08/11/23 11:30 08/11/23 12:48 Methylprednisolone Sod Succ 125mg Vial IV 08/11/23 11:31 125 mg ONCE ONE Administration Sodium Chloride 100 ml 08/11/23 11:35 08/11/23 11:37 0.9 % Sodium Chloride 50 Ml Vial IV 08/11/23 11:36 100 ml ONCE ONE Administration ORDERS Category Date Time Status CT angio head Stat Cat Scan 08/11/23 11:[address] angio neck Stat Cat Scan 08/11/23 11:[address] head/brain wo con Stat Cat Scan 08/11/23 11:07 Completed CTA Chest [CT angio chest PE protocol] Stat Cat Scan 08/11/23 11:07 Completed XR chest portable Stat Exams 08/11/23 11:12 Completed XR chest portable Stat Exams 08/11/23 11:12 Completed CBC w/Auto Diff [Complete Blood Count Auto Diff] Stat Lab 08/11/23 10:53 Completed CMP [Comprehensive Metabolic Panel] Stat Lab 08/11/23 10:53 Completed Drug Screen,Urine Stat Lab 08/11/23 11:45 Completed Ethanol [Ethyl Alcohol] Stat Lab 08/11/23 10:53 Completed MAG [Magnesium] Stat Lab 08/11/23 10:53 Completed PHOS [Phosphorous] Stat Lab 08/11/23 10:53 Completed PT INR [Prothrombin Time INR] Stat Lab 08/11/23 10:53 Completed Blood Culture Stat Micro 08/11/23 11:58 Received ABG [Arterial Blood Gas] Stat RT 08/11/23 12:33 Completed Lactate Arterial Routine RT 08/11/23 12:33 Completed VBG [Venous Blood Gas] Stat RT 08/11/23 10:53 Completed Labs were independently interpreted by me, significant for leukocytosis, respiratory acidosis, other labs pending at this time Imaging was independently visualized and interpreted by me, significant for no evidence of acute intracranial hemorrhage, however multifocal airspace disease. Please refer to radiology report for full details. My clinical impression at this time is most consistent with respiratory failure secondary to COPD exacerbation Patient was admitted to hospital medicine service for further management Procedures Intubation Mallampati Score:: Class I Time out performed: Yes sedative: Etomidate paralytic: Succinylcholine Laryngoscope: Shaw ET Tube Size: 7.5 ET Tube Uncuffed: No Tube Secured Depth (cm): 21 Tube Secured Location: lips Tube Placement Confirmation: visualized tube passing through cords Patient Tolerated Procedure: well Critical Care Critical Care Time Critical Care Time: Yes Attestation: On 08/11/23, the high probability of a clinically significant, sudden or life threatening deterioration of the following system(s) required my full and direct attention, intervention and personal management. The time I documented below is in addition to time spent performing reported procedures but includes the following listed in this critical care notation. Total Time Total Critical Care Time: 60
[2023-08-11] MEDS: LACTATED RINGERS 1000ML 1,000 ML 999 ML IV (12:11)
[2023-08-11 12:13] LABS: Amphetamine/Metha Screen,Urine Negative ng/ml (<1000)
[2023-08-11 12:14] LABS: Barbiturates Screen,Urine Negative ng/ml (<200); Benzodiazepines Screen,Urine Negative ng/ml (<200)
[2023-08-11 12:15] LABS: Cannabinoid Screen,Urine Negative ng/ml (<50)
[2023-08-11 12:16] LABS: Cocaine Screen,Urine Negative ng/ml (<300); Methadone Screen,Urine Negative ng/ml (<300)
[2023-08-11 12:17] LABS: Opiate Screen,Urine Positive ng/ml (<300); Phencyclidine Screen,Urine Negative ng/ml (<25)
[2023-08-11 12:36] LABS: ABG Base Excess 1.9 mmol/L (-2.4-2.3); ABG HCO3 27.3 mmhg (22.0-26.0); ABG Oxygen Saturation 100 % (90-100); ABG PCO2 49.3 mmhg (35.0-45.0); ABG PH 7.36 mmol/L (7.35-7.45); ABG PO2 190.7 mmhg (80-100); ABG TCO2 28.8 mmhg (23-27)
[2023-08-11 12:37] LABS: Allen's Test ACCEPTABLE; Lactate Arterial 2.2 mmol/L (0.4-2.0); Oxygen 60 %; PEEP 8; Source Right Radial; Tidal Volume 420; Vent Rate 22
--- NOTE | 2023-08-11 12:38 | PC.NURSE ---
on phone with hospitalist
[2023-08-11] MEDS: METHYLPREDNISOLONE SOD SUCC 125MG VIAL 125 MG IV (12:48)
[2023-08-11] MEDS: PIPERACILLIN/TAZO 4.5 GM in 0.9 % SODIUM CHLORIDE 100 ML IV (13:01)
[2023-08-11 13:11] LABS: Lymphocytes % 12 % (10-50); Monocytes % 10 % (2-9); Neutrophils % 76 % (42-76); Total Cells Counted 100
[2023-08-11 13:13] LABS: Hypochromasia 1+; Platelet Estimate Normal
--- NOTE | 2023-08-11 13:20 | HMH.PHAINT1 ---
Pharmacy Intervention Comments: MEDICATION RECONCILIATION COMPLETED ON PATIENT USING EXTERNAL FILL HISTORY FROM PHARMACY AND LSIT FROM PCP OFFICE. -DIONNA LEMONSD
--- NOTE | 2023-08-11 13:23 | PC.NURSE ---
Report given to Rosario Henderson RN.
--- NOTE | 2023-08-11 13:43 | PC.NURSE ---
DAUGHTER BROUGHT IN WRITTEN DNR FROM PT BEFORE TODAY AND STATED SHE WAS A PT THROUGH [facility]. CALLED [facility] TO FIND PT CODE STATUS. SHE STATED THERE WAS NO OFFICIAL DOCUMENTATION ON PT EXECUTING DNR ON 07/21 SO NURSE WAS CALLING [facility] TO FIND OUT MORE BC APS WAS INVOLVED IN CASE..
--- NOTE | 2023-08-11 13:51 | PC.NURSE ---
arrived by stretcher from ED
--- NOTE | 2023-08-11 14:48 | PC.NURSE ---
SPOKE WITH JESSIE FROM [facility] AND SHE STATED PT HAD A SIGNED DNR WAS JUST NOT UPDATED IN CHART. TRANSFERRED HER TO SECOND FLOOR TO SPEAK WITH NURSE TAKING CARE OF PT NOW THAT SHE WAS ADMITTED AND MOVED TO [facility]
[2023-08-11 14:57] LABS: Reflex Lactic Add Lactic Reflex
--- NOTE | 2023-08-11 15:55 | PC.NURSE ---
contacted Edyta with [facility] pharmacy in regards to pt vancomycin consult. [phone] call returned from Edyta in pharmacy. vanc 1250mg
[2023-08-11] MEDS: HEPARIN SODIUM 5,000 UNIT/ML VIAL 5000 UNIT SQ (16:01)
[2023-08-11] MEDS: CEFEPIME HCL 2 GM in 0.9 % SODIUM CHLORIDE 100 ML IV (16:02)
[2023-08-11] MEDS: METHYLPREDNISOLONE SOD SUCC 125MG VIAL 60 MG IV (16:03)
[2023-08-11] MEDS: ACETAMINOPHEN 325MG TAB 650 MG PO (16:04)
[2023-08-11 16:05] LABS: Lactic Acid Follow Up (RFLX 1) 1.6 mmol/L (0.7-2.1)
[2023-08-11] MEDS: VANCOMYCIN CONSULT REQUEST 1 EACH NOTAPPLIC (16:22)
--- NOTE | 2023-08-11 16:50 | PC.NURSE ---
1610 pt daughter at bedside and notified this RN that pt is a DNR. states that she has a EMS DNR. Shameka Rutledge with hospice presented EMS DNR to facility. DR Tinoco at bedside with Hospice, Erasmo, Panchito Ramos and Yazmin Hutchinson. pt daughter Darleen states that she would like her mother to be extubated but is agreeable for pt to still be treated and receive abx. states that she is aware that there is a possibility that the pt will pass away following extubation. daughter indicates her understanding. 1616 Dr ramos notified of family requesting pt to be extubated r/t being a DNR. Dr Pierre asked that nursing staff speak with family about extubating to bipap. 1620 upon entering room to speak with pt family and sign DNR, family had stepped off of the unit. 1715 pt family returned to floor, addressed use of bipap with pt daughter. Rony Carvalho present for conversation. pt daughter Darleen refuses to place pt on bipap. states she wants pt to be on what she wears at home. states she feels like she has already gotten in the way of god and does not want to go against her moms wishes. 1716 DNR advanced directive signed at this time. 1725 Ling Wellington present at bedside with panchito ramos rn to extubate pt. pt extubated to 4lpm (which is baseline o2)
--- NOTE | 2023-08-11 17:59 | EXP.HP ---
History of Present Illness *Admission Date: 08/11/23 *Reason for visit:: SOB, unresponsive *History of present illness: Patient is a 52-year-old female with past medical history of heart failure with preserved ejection fraction, Hyperlipidemia chronic hypoxia on home oxygen who presents to the hospital due to shortness of breath. Reportedly patient was under hospice care however patient was brought to the emergency department, patient was intubated after family consent. At time of my evaluation patient is intubated and sedated and family is at the bedside reportedly patient was having shortness of breath for past 3 days but got worse., Patient was found unresponsive and was intubated on arrival anemia. Medicine was consulted for admission. [facility] Disclaimer: The information contained in this section may have been updated after the patient was seen, as this information can be updated by other users. 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 She was more than happy to taper this to off. Will go to 0.025 mg twice a day for 7 days then 0.25 mg once a day for 7 days and then stop. She is taking sertraline 100 mg/day and states this helps with her anxiety. GERD (gastroesophageal reflux disease) Hypertension Suicidal thoughts Surgical History History of cholecystectomy History of colonoscopy History of esophagogastroduodenoscopy History of hysterectomy Family History Mother Cancer Father Pancreatic cancer Social History (Updated 08/11/23 @ 16:59 by Lori Carvalho RN) Smoking Status: Former smoker tobacco type: cigarettes packs per day: 0 how long ago did patient quit smokin years second hand exposure: Yes alcohol intake: never substance use type: denies use current occupational status: disabled Travel in the last 8 weeks: None household members: family housing: house number of children: 1 caffeine: Yes Review of Systems Review of Systems Review of systems:: unable to obtain Meds Home Medications and Allergies Home Medications Medication Instructions Recorded Confirmed Type montelukast 10 mg tablet 10 mg PO PM Allergy symptoms 12/04/21 08/11/23 History empagliflozin 10 mg tablet 10 mg PO DAILY Heart Failure 03/20/23 08/11/23 History (Jardiance) sertraline 100 mg tablet 100 mg PO DAILY Mood 03/20/23 08/11/23 History atorvastatin 10 mg tablet (Lipitor) 10 mg PO HS Cholesterol 04/16/23 08/11/23 History pantoprazole 40 mg tablet,delayed 40 mg PO DAILY Acid Reflux 04/16/23 08/11/23 History release tizanidine 4 mg capsule 6 mg (1.5 x 4 mg) PO TID muscle 05/03/23 08/11/23 Rx spasms 30 days #135 caps fluticasone fur. 100 mcg-umeclid 1 inh inhalation DAILY Breathing 05/10/23 08/11/23 History 62.5 mcg-vilant 25 mcg Problems inhalat.powder (Trelegy Ellipta) magnesium oxide 400 mg (241.3 mg 400 mg PO BID Supplement 05/10/23 08/11/23 History magnesium) tablet blood-glucose meter #1 ea 05/15/23 08/11/23 Rx gabapentin 800 mg tablet 800 mg PO TID Pain 30 days #90 tabs 07/02/23 08/11/23 Rx clonazepam 0.25 mg disintegrating 0.25 mg PO TID Anxiety 08/11/23 08/11/23 History tablet fexofenadine 180 mg tablet 180 mg PO DAILY Allergy Symptoms 08/11/23 08/11/23 History ipratropium 0.5 mg-albuterol 3 mg 3 ml inhalation Q4H Breathing 08/11/23 08/11/23 History (2.5 mg base)/3 mL nebulization Problems soln metformin 500 mg tablet 500 mg PO DAILY Diabetes 08/11/23 08/11/23 History metoprolol tartrate 25 mg tablet 12.5 mg PO BID High Blood Pressure 08/11/23 08/11/23 History New Prescriptions to Start Prescriptions: Allergies Allergy/AdvReac Type Severity Reaction Status Date / Time hydrocodone Allergy Severe cant breath Verified 08/11/23 16:29 [From [facility] (hydrocodone-acetamin)] Penicillins Allergy Unknown Unknown Verified 08/11/23 16:29 allergy reaction Exam Data for Last 24 hours Vital signs and Labs for Last 24 Hours: Temp Pulse Resp BP Pulse Ox O2 Del Method FiO2 100.9 F H 138 H 20 128/73 96 Mechanical Ventilation 30 08/11/23 15:39 08/11/23 17:00 08/11/23 17:00 08/11/23 17:00 08/11/23 17:00 08/11/23 17:00 08/11/23 15:00 Laboratory Results - last 24 hr 08/11/23 10:53: WBC 26.0 H*, RBC 4.30, Hgb 12.6, Hct 42.3, MCV 98.3, MCH 29.3, MCHC 29.8 L, RDW 13.0, Plt Count 273, MPV 9.2, Neut % (Auto) 79.1, Lymph % (Auto) 9.4 L, [place] % (Auto) 10.1 H, Eos % (Auto) 0.2, Baso % (Auto) 1.1, Neut # (Auto) 20.6 H, Lymph # (Auto) 2.4, [place] # (Auto) 2.6 H, Eos # (Auto) 0.1, Baso # (Auto) 0.3 H, Total Counted 100, Neutrophils % (Manual) 76, Band Neutrophils % 2.0, Lymphocytes % (Manual) 12, Monocytes % (Manual) 10 H, Platelet Estimate Normal, Hypochromasia 1+, PT 12.0, INR 1.12 H, VBG pH 7.17 L, VBG pCO2 82.5 H, VBG pO2 181.5 H, VBG HCO3 29.3, VBG Total CO2 31.8 H, VBG O2 Saturation 99.2 H, VBG Base Excess 0.7, VBG Lactic Acid 3.7 H, Sodium 146 H, Potassium 3.1 L, Chloride 104, Carbon Dioxide 33 H, Anion Gap 12.1, BUN 20 H, Creatinine 0.60, Estimated GFR 102, Est GFR ( Amer) 123, Glucose 156 H, Calcium 10.0, Phosphorus 4.3, Magnesium 1.9, Total Bilirubin 0.5, AST 42 H, ALT 28, Alkaline Phosphatase 121, Total Protein 7.0, Albumin 3.9, Globulin 3.1, Albumin/Globulin Ratio 1.3, Plasma/Serum Alcohol < 10 08/11/23 11:45: Urine Opiates Screen Positive H, Urine Methadone Screen Negative, Ur Barbituates Screen Negative, Ur Phencyclidine Scrn Negative, Ur Amphetamines Screen Negative, U Benzodiazepines Scrn Negative, Urine Cocaine Screen Negative, U Marijuana (THC) Screen Negative 08/11/23 12:33: Specimen Source Right radial, O2 % 60, ABG pH 7.36, ABG pCO2 49.3 H, ABG pO2 190.7 H, ABG HCO3 27.3 H, ABG Total CO2 28.8 H, ABG O2 Saturation 100, ABG Base Excess 1.9, Jay Test Acceptable, ABG Lactate 2.2 H, Vent Rate 22, Tidal Volume 420, PEEP 8 08/11/23 15:35: Lactate 1.6 I & O for Last 24 hours: Intake & Output 08/08/23 08/09/23 08/10/23 08/11/23 23:59 23:59 23:59 23:59 Intake Total 90.358 / 90.358 Output Total 650 / 650 Balance -559.642 / -559.642 Weight 61.405 kg Constitutional Constitutional: severe distress *Routine HEENT Exam Head: Present normocephalic Eye: Present EOMI and PERRL ENT: Present mucous membranes moist *Routine Neck Exam Neck: Present supple; Absent lymphadenopathy *Routine Respiratory Exam Respiratory: Present distant breath sounds and diminished air movement *Routine Cardiovascular Exam Cardiovascular: Present tachycardia *Routine Abdominal Exam Abdominal: Present soft and normoactive bowel sounds; Absent tenderness *Routine Rectal Exam Rectal:: deferred *Routine Genitalia Exam Genitalia:: deferred *Routine Extremities Exam Extremities: Absent cyanosis, clubbing or edema *Routine Skin Exam Skin: Present warm; Absent rash *Routine Neurological Exam Comments: inatubated and sedated Assessment and Plan *Assessment and plan (1) Pneumonia: Status: Acute Category: Medical Code(s): J18.9 - Pneumonia, unspecified organism (2) Acute respiratory failure: Status: Acute Category: Medical Code(s): J96.00 - Acute respiratory failure, unspecified whether with hypoxia or hypercapnia (3) Acute exacerbation of chronic obstructive pulmonary disease: Status: Acute Category: Medical Code(s): J44.1 - Chronic obstructive pulmonary disease with (acute) exacerbation (4) Acute on chronic respiratory failure with hypoxia and hypercapnia: Status: Acute Category: Medical Code(s): J96.21 - Acute and chronic respiratory failure with hypoxia; J96.22 - Acute and chronic respiratory failure with hypercapnia Plan Patient is a 52-year-old female with past medical history of heart failure with preserved ejection fraction, Hyperlipidemia chronic hypoxia on home oxygen who presents to the hospital due to shortness of breath. Reportedly patient was under hospice care however patient was brought to the emergency department, patient was intubated after family consent. At time of my evaluation patient is intubated and sedated and family is at the bedside reportedly patient was having shortness of breath for past 3 days but got worse., Patient was found unresponsive and was intubated on arrival anemia. Medicine was consulted for admission. Assessment and plan Acute on chronic hypoxic hypercapnic respiratory failure Unresponsiveness Bilateral patchy opacities concerning for pneumonia Tachycardia, leukocytosis, fever likely secondary to sepsis COPD exacerbation Started on empirical antibiotics with vancomycin, cefepime Patient was intubated, patient is currently in hospice, patient's living will and family at bedside mentions that patient did not want to stay on the ventilator, patient family is requesting extubation, hospice was called, family at the bedside decided to go for terminal extubation, risk and benefits were discussed with the family and they agree to proceed with extubation, patient and family is okay to receive medical treatment including antibiotics and blood work Continue Solu-Medrol Continue breathing treatment Okay to transition to BiPAP after extubation Pulmonary was consulted CT head, CTA head and neck unremarkable for acute neurologic process Check procalcitonin, blood cultures Hypernatremia likely secondary to hypovolemia -Start gentle IV fluid therapy with normal saline Hypokalemia Monitor and replace electrolytes DVT prophylaxis-SCDs given patient's family requesting to minimize needle sticks for patient's comfort
[2023-08-11] MEDS: VANCOMYCIN/WATER FOR INJ (PEG) 1.25 GM/250 ML PIGGYBACK IV (18:14)
[2023-08-11] MEDS: 0.9 % SODIUM CHLORIDE 1000ML 1,000 ML 75 ML IV (18:14)
--- NOTE | 2023-08-11 18:23 | PC.NURSE ---
All care and documentation performed by Deepika Hutchinson SN/LEE ANN was completed under by direct supervision. Mendy Henderson RN
[2023-08-11] MEDS: LORazepam 2MG/ML VIAL 0.5 MG IV (20:08)
--- NOTE | 2023-08-11 20:10 | P.EN_ITS ---
Pt's daughter Radha Aviles, requests that pt remain hospice with comfort measures only. Spoke with motion picture cameraman electrical and instrument technician. Will continue pt's current home medications for comfort. Pt's daughter would like to get pt back home tomorrow. senior enlisted advisor aware.
--- NOTE | 2023-08-11 20:10 | EXP.EVENT.NO ---
Pt's daughter Radha Aviles, requests that pt remain hospice with comfort measures only. Spoke with procurement professional hospice community liaison. Will continue pt's current home medications for comfort. Pt's daughter would like to get pt back home tomorrow. seed corn manager production aware.
[2023-08-11] MEDS: MORPHINE 20MG/ML 1ML ORAL SOLUTION 10 MG PO (21:18)
[2023-08-11] MEDS: IPRATROPIUM/ALBUTEROL 3 ML NEB IH (21:21)
[2023-08-12] VITALS: PULSE 134
[2023-08-12] MEDS: METHYLPREDNISOLONE SOD SUCC 125MG VIAL 60 MG IV (00:12)
[2023-08-12 01:34] VITALS: PULSE 140; PULSE 143; O2SAT 98
[2023-08-12] MEDS: IPRATROPIUM/ALBUTEROL 3 ML NEB IH ×2 (01:34→06:29)
[2023-08-12 04:00] VITALS: PULSE 143; BMI 23.1
[2023-08-12] MEDS: BUDESONIDE 0.5MG/2ML NEB 0.5 MG IH (06:20)
[2023-08-12 06:30] VITALS: PULSE 140; PULSE 142; O2SAT 91
[2023-08-12 07:45] VITALS: PULSE 130; RESP 10; O2SAT 75
--- NOTE | 2023-08-12 08:15 | EXP.DEATH.NO ---
Pronouncement Note Date and Time of Date of : 08/12/23 Time of : 07:55 PCOD Preliminary cause of : Hospice care patient Contributing Factors (1) Pneumonia: Contributing factors: cardiopulmonary arrest (2) Acute respiratory failure: (3) Acute exacerbation of chronic obstructive pulmonary disease: (4) Acute on chronic respiratory failure with hypoxia and hypercapnia: Summary Additional details: Called by RN to pronounce At time of my evaluation patient does not have heart sounds, breathing sounds and pupils are fixed and dilated. Patient daughter is at the bedside. Patient declared at 7.55 Additional Data Attending physician: Katharine Harris MD Autopsy should be considered if:: Unknown or unanticipated medical complications Cause is not known with certainty on clinical grounds Would allay concerns of the public/family regarding Unexplained/unexpected apparently natural and not subject to a forensic medical jurisdiction DOA Within 24 hours of admission Sustained or apparently sustained injury while in the hospital Result of high risk, infectious and contagious disease Obstetric and pediatric arising from environmental or occupational hazard Unexplained/unexpected from dental, medical, or surgical diagnostic procedures and/or therapies Would disclose a known or suspected illness which also may have a bearing on survivors or recipients of transplanted organs Autopsy requested?: No Does not meet criteria
--- NOTE | 2023-08-12 08:28 | PC.NURSE ---
0710 during report pt hr noted to be in the 130's, o2 72% on 6lpm. rr 30's pt comfort care per report. 0740 pt heart rate noted to have decreased from 130's to 50's. pt o2 60%. agonal respirations. pt daughter called by Damaris Dewitt Rn and notified of rapid decline in pt condition. 0755 pt noted to have no rr, no hr. no heart beat auscultated by [address] Harris notified of pt passing. 0826 it director notified of pt . pt does not meet their criteria as she was a hospice pt prior to entry to facility. 0840 contacted [facility]. Og with [facility] states he will return call with decision for donation. 09 pt ruled out for dontation by Og Peterson [phone] [id number] post mortem care completed by Rosalind Barrientos and Rossy Wolff
--- NOTE | 2023-08-12 11:32 | PC.NURSE ---
pt daughter stepped off of unit while staff performed post mortem care at approx 0920. pt daughter had not returned by 1100. this RN contacted pt daughter Radha. daughter was currently on the phone with home trying to make arrangements. daughter gave telephone consent to Donal Jackson to release body to home when it is decided where she will make arrangements. states that she is going to speak with her uncle before location is finalized but she does not currently know where the pt is going to go. states she will call and let us know when decision is made.
== END 2023-08-12 13:12 | disposition expired | DRG 193 ==
LOC: ER 11:54 → 2ND 13:16
PROVIDERS: Internal Medicine Pulmonary Disease; Admitting Provider Internal Medicine; Emergency Provider Emergency Medicine; Visit Provider Internal Medicine
DX: J18.9 Pneumonia, unspecified organism (principal); J96.21 Acute and chronic respiratory failure with hypoxia; J44.1 Chronic obstructive pulmonary disease with (acute) exacerbation; E87.0 Hyperosmolality and hypernatremia; Z87.891 Personal history of nicotine dependence; E87.6 Hypokalemia
CPT/HCPCS: 70450; 70496; 70498; 71045; 71275; 80053; 80307; 82803; 83605; 83735; 84100; 85007; 85025; 85610; 87040; 87070; 87205; 93005; 94002; 94640; 99291; J2543; J2704; Q9967